=== PATIENT | female | born 1955 | race African-American/Black ===

== ENCOUNTER 2019-10-03 11:26 | Outpatient (CLI) | payer MEDICARE, MEDICAID, SELFPAY ==
--- NOTE | ~2019-10-03 | XR_ITS ---
XR shoulder LT min 2V DATE: 10/03/2019 11:42 INDICATION: Left lateral shoulder pain for 2 weeks. No known injury. TECHNIQUE: 4 views COMPARISON: None FINDINGS: No fracture or dislocation, periosteal reaction or bone destruction or abnormal soft tissue calcification. Normal alignment at the acromioclavicular and glenohumeral joints. IMPRESSION: No significant abnormality Reviewed, dictated and finalized at location B. IMPRESSION: No significant abnormality
== END 2019-10-03 11:27 | disposition home or self-care (01) ==
LOC: CHSIMG 11:29
PROVIDERS: PCP Nurse Practitioner Family; Visit Provider Nurse Practitioner Family
DX: M25.512 Pain in left shoulder (principal)
CPT/HCPCS: 73030

== ENCOUNTER 2019-10-05 09:48 | Outpatient (RCR) | payer MEDICARE, MEDICAID, SELFPAY ==
--- NOTE | 2019-10-05 11:36 | PTOPEVAL ---
Thank you for referring this patient to [facility]. Please review, sign, date and return this plan of care [facility]. I agree with and certify that the following plan of care is medically necessary. Referring Physician Date Admitting Provider: Attending Provider: Lay Mendoza NP Referring Provider: *PT Outpatient Evaluation Start: 10/05/19 10:02 Freq: Status: Active Protocol: Document 10/05/19 10:05 [facility] (Rec: 10/05/19 10:34 [facility] [id number]) Therapy Assessment Status Assessment Status Assessment Status Evaluation Outpatient Past Medical History Past Medical History Reason Unable to Obtain see patient intake form Evaluation Information Problem Diagnosis L shoulder pain Onset 09/19/19 Additional Evaluation Detail quick dash = Subjective Information patient reports she has been Query Text:As Reported By Patient/ having pain in the L shoulder Family fora bout 2-3 weeks. she reports the pain is on the outside of her shoulder, and is very tender. she reports she has been taking new pain meds that do not help. she reports the pain does not go down past the elbow. she reports she did not have an injury. she reports she has a history of surgery to the neck (removal of fatty cyst). she reports this was years ago. she reports she has increased pain with movement of the L hand/arm. she reports decreased pain with laying on the L shoudler/side. she reports she does control symptoms/pain with ice. Prior Level of Function Comments Additional Prior Level of Function prior to a few weeks ago, no Comments issues with the L shoulder. she reports the pain began randomly. Pain Assessment Timing of Pain Assessment Timing of Pain Assessment Assessment Pain Scale Pain Scale Used Numeric (1 - 10) Self Report Pain Assessment Left Shoulder(s) Reported Pain Level 6 Pain Description Sharp Pain Frequency Acute,Continuous Current Pain Intensity 6 Lowest Pain Intensity 1 Greatest Pain Intensity 8 Pain Aggravating Factors Changing Position,Exercise/
== END 2019-10-14 17:00 | disposition home or self-care (01) ==
LOC: CHSPT 09:48
PROVIDERS: PCP Nurse Practitioner Family; Visit Provider Nurse Practitioner Family
DX: M25.512 Pain in left shoulder (principal)
CPT/HCPCS: 97014; 97110; 97161; G0283

== ENCOUNTER 2019-12-26 10:29 | Outpatient (CLI) | payer MEDICARE, SELFPAY ==
[2019-12-26 10:55] LABS: Creatinine Urine 270.85 mg/dL (40-278)
[2019-12-26 10:57] LABS: Microalbumin Urine Random 51.6 mg/L
[2019-12-26 10:59] LABS: Hemoglobin A1C 6.8 % (<5.7)
[2019-12-26 12:06] LABS: Alanine Aminotransferase 27 U/L (14-59); Alkaline Phosphatase 53 U/L (46-116); Anion Gap 13.1 mmol/L (7-16); Aspartate Amino Transferase 16 U/L (15-37); Bilirubin,Total 0.9 mg/dL (0.00-1.00); Blood Urea Nitrogen 19 mg/dL (7-18); Calcium 9.1 mg/dL (8.5-10.1); Carbon Dioxide 27 mmol/L (21-32); Chloride 105 mmol/L (98-108); Cholesterol 106 mg/dL (0-200); Estimated Glomerular Filt Rate 50; Glucose 125 mg/dL (70-99); HDL Direct 55 mg/dL (40-60); LDL Cholesterol Calculated 33 mg/dL (<130); Osmolality Calculated 295 mOsm/kg (285-295); Potassium 4.1 mmol/L (3.5-5.1); Sodium 141 mmol/L (136-145); Total Protein 6.9 g/dL (6.4-8.2); Triglycerides 92 mg/dL (0-150)
== END 2019-12-26 10:30 | disposition home or self-care (01) ==
PROVIDERS: PCP Family Medicine; Visit Provider Family Medicine
DX: E11.9 Type 2 diabetes mellitus without complications (principal)
CPT/HCPCS: 36415; 80053; 80061; 82043; 83036

== ENCOUNTER 2020-04-09 08:29 | Outpatient (CLI) | payer MEDICARE, SELFPAY ==
[2020-04-09 08:53] LABS: Hemoglobin A1C 6.3 % (<5.7)
== END 2020-04-09 08:30 | disposition home or self-care (01) ==
LOC: CHSLAB 08:32
PROVIDERS: PCP Family Medicine; Visit Provider Family Medicine
DX: E11.9 Type 2 diabetes mellitus without complications (principal)
CPT/HCPCS: 36415; 83036

== ENCOUNTER 2020-07-18 09:30 | Outpatient (CLI) | payer MEDICARE, SELFPAY ==
[2020-07-18 09:54] LABS: INR 1.1; Prothrombin Time 11.8 Seconds (9.50-12.10)
== END 2020-07-18 09:31 | disposition home or self-care (01) ==
LOC: CHSLAB 09:33
PROVIDERS: PCP Family Medicine; Visit Provider Family Medicine
DX: I48.91 Unspecified atrial fibrillation (principal)
CPT/HCPCS: 36415; 85610

== ENCOUNTER 2020-08-29 08:56 | Outpatient (CLI) | payer MEDICARE, SELFPAY ==
[2020-08-29 09:13] LABS: Hematocrit 42.4 % (35.0-42.0); Hemoglobin 14.5 g/dL (11.7-13.8); Mean Corpuscular HGB Conc 34.2 g/dL (32.0-36.0); Mean Corpuscular Hemoglobin 30.4 pg (27.0-31.0); Mean Corpuscular Volume 88.9 fL (78.0-102.0); Platelet Count Result 243 K/mm3 (150-420); Red Blood Count 4.77 M/mm3 (4.20-5.40); Red Cell Distribution Width 13.4 % (11.6-14.4); White Blood Count 4.9 K/mm3 (4.8-10.8)
[2020-08-29 09:26] LABS: Hemoglobin A1C 6.8 % (<5.7); INR 2.7; Prothrombin Time 27.7 Seconds (9.50-12.10)
[2020-08-29 10:15] LABS: Alanine Aminotransferase 32 U/L (14-59); Albumin Level 3.9 g/dL (3.4-5.0); Alkaline Phosphatase 55 U/L (46-116); Anion Gap 9 mmol/L (8-16); Aspartate Amino Transferase 14 U/L (15-37); Bilirubin,Total 0.8 mg/dL (0.00-1.00); Blood Urea Nitrogen 20 mg/dL (7-18); Calcium 8.9 mg/dL (8.5-10.1); Carbon Dioxide 28 mmol/L (21-32); Chloride 105 mmol/L (98-108); Cholesterol 129 mg/dL (0-200); Estimated Glomerular Filt Rate 54; Glucose 147 mg/dL (70-99); HDL Direct 53 mg/dL (40-60); LDL Cholesterol Calculated 49 mg/dL (<130); Osmolality Calculated 299 mOsm/kg (285-295); Potassium 4.1 mmol/L (3.5-5.1); Sodium 142 mmol/L (136-145); Total Protein 6.8 g/dL (6.4-8.2); Triglycerides 133 mg/dL (0-150)
== END 2020-08-29 08:57 | disposition home or self-care (01) ==
LOC: CHSLAB 09:04
PROVIDERS: PCP Family Medicine; Visit Provider Family Medicine
DX: E78.5 Hyperlipidemia, unspecified (principal); I10 Essential (primary) hypertension; E11.9 Type 2 diabetes mellitus without complications; Z79.01 Long term (current) use of anticoagulants
CPT/HCPCS: 36415; 80053; 80061; 83036; 85027; 85610

== ENCOUNTER 2020-10-24 13:26 | Outpatient (RCR) | payer MEDICARE, MEDICAID, SELFPAY ==
[2020-07-30 10:08] LABS: INR 1.4; Prothrombin Time 15.1 Seconds (9.50-12.10)
[2020-08-08 09:31] LABS: INR 2.9; Prothrombin Time 29.8 Seconds (9.50-12.10)
[2020-08-15 09:15] LABS: INR 2.8; Prothrombin Time 28.5 Seconds (9.50-12.10)
[2020-08-22 11:08] LABS: INR 2.9; Prothrombin Time 29.3 Seconds (9.50-12.10)
[2020-09-05 09:30] LABS: INR 3.3; Prothrombin Time 33.2 Seconds (9.50-12.10)
[2020-09-12 09:50] LABS: INR 3.3; Prothrombin Time 32.9 Seconds (9.50-12.10)
[2020-09-19 10:20] LABS: INR 1.9; Prothrombin Time 19.3 Seconds (9.50-12.10)
[2020-09-26 09:59] LABS: INR 1.8; Prothrombin Time 18.8 Seconds (9.50-12.10)
[2020-10-03 10:02] LABS: Prothrombin Time 20.6 Seconds (9.50-12.10)
[2020-10-10 09:55] LABS: INR 1.8; Prothrombin Time 18.6 Seconds (9.50-12.10)
[2020-10-17 09:57] LABS: INR 2.8; Prothrombin Time 28.4 Seconds (9.50-12.10)
--- NOTE | ~2020-10-24 | XR_ITS ---
EXAMINATION: XR knee RT 2V DATE: 10/24/2020 15:16 INDICATION: Right knee pain. TECHNIQUE: 2 views of right knee were obtained. COMPARISON: None. FINDINGS: Bone alignment is normal. No fracture. There is moderate osteoarthritis of medial and mcknight lofemoral compartments and mild osteoarthritis of lateral compartment. There is a small knee joint ef fusion. IMPRESSION: 1. Moderate right knee osteoarthritis. Reviewed, dictated and finalized at location A.
--- NOTE | ~2020-10-24 | XR_ITS ---
EXAMINATION: XR hip RT min 2V DATE: 10/24/2020 15:16 INDICATION: Right hip pain. TECHNIQUE: 2 views of right hip were obtained. COMPARISON: None. FINDINGS: Bone alignment is normal. No fracture. There is mild right hip osteoarthritis. IMPRESSION: 1. Mild right hip osteoarthritis. Reviewed, dictated and finalized at location A.
[2020-10-24 14:09] LABS: INR 2.8; Prothrombin Time 28.8 Seconds (9.50-12.10)
== END 2020-10-28 23:59 | disposition home or self-care (01) ==
LOC: CHSLAB 13:26
PROVIDERS: PCP Family Medicine; Visit Provider Family Medicine
DX: Z79.01 Long term (current) use of anticoagulants (principal)
CPT/HCPCS: 36415; 73502; 73560; 85610

== ENCOUNTER 2020-11-17 09:37 | Outpatient (CLI) | payer MEDICARE, SELFPAY | END 2020-11-17 09:38 | disposition home or self-care (01) | LOC: CHSCOVIDVC 09:37 | PROVIDERS: PCP Family Medicine | DX: Z23 Encounter for immunization (principal) | CPT/HCPCS: 0011A; 91301 ==

== ENCOUNTER 2020-12-15 09:39 | Outpatient (CLI) | payer MEDICARE, SELFPAY | END 2020-12-15 09:40 | disposition home or self-care (01) | LOC: CHSCOVIDVC 09:39 | PROVIDERS: PCP Family Medicine | DX: Z23 Encounter for immunization (principal) | CPT/HCPCS: 0012A; 91301 ==

== ENCOUNTER 2021-01-16 16:23 | Outpatient (CLI) | payer MEDICARE, SELFPAY ==
[2021-01-16 17:41] LABS: Anion Gap 13 mmol/L (8-16); Blood Urea Nitrogen 20 mg/dL (7-18); Calcium 9.5 mg/dL (8.5-10.1); Carbon Dioxide 25 mmol/L (21-32); Chloride 104 mmol/L (98-108); Estimated Glomerular Filt Rate 53; Glucose 110 mg/dL (70-99); NT Pro B Type Natriuretic Pept 525 pg/mL (0-125); Osmolality Calculated 297 mOsm/kg (285-295); Sodium 142 mmol/L (136-145)
== END 2021-01-16 16:24 | disposition home or self-care (01) ==
LOC: CHSLAB 16:27
PROVIDERS: PCP Family Medicine; Visit Provider Family Medicine
DX: I10 Essential (primary) hypertension (principal); I50.9 Heart failure, unspecified
CPT/HCPCS: 36415; 80048; 83880

== ENCOUNTER 2021-01-23 12:06 | Outpatient (RCR) | payer MEDICARE, SELFPAY ==
[2020-10-31 09:47] LABS: Prothrombin Time 30.7 Seconds (9.50-12.10)
[2020-11-07 10:02] LABS: Prothrombin Time 20.9 Seconds (9.50-12.10)
[2020-11-14 09:52] LABS: INR 1.7; Prothrombin Time 17.6 Seconds (9.50-12.10)
[2020-11-26 10:55] LABS: INR 2.3; Prothrombin Time 23.9 Seconds (9.50-12.10)
[2020-12-03 10:26] LABS: INR 2.5; Prothrombin Time 25.7 Seconds (9.50-12.10)
[2020-12-10 09:55] LABS: INR 2.7; Prothrombin Time 27.2 Seconds (9.50-12.10)
[2020-12-18 11:13] LABS: INR 2.8; Prothrombin Time 28.6 Seconds (9.50-12.10)
[2021-01-23 12:27] LABS: INR 2.7; Prothrombin Time 27.3 Seconds (9.50-12.10)
== END 2021-01-29 23:59 | disposition home or self-care (01) ==
LOC: CHSLAB 12:06
PROVIDERS: PCP Family Medicine; Visit Provider Family Medicine
DX: Z79.01 Long term (current) use of anticoagulants (principal)
CPT/HCPCS: 36415; 85610

== ENCOUNTER 2021-03-12 14:37 | Outpatient (CLI) | payer MEDICARE, SELFPAY ==
[2021-03-12 15:03] LABS: Hematocrit 40.3 % (35.0-42.0); Hemoglobin 13.9 g/dL (11.7-13.8); Mean Corpuscular HGB Conc 34.5 g/dL (32.0-36.0); Mean Corpuscular Hemoglobin 30.9 pg (27.0-31.0); Mean Corpuscular Volume 89.6 fL (78.0-102.0); Platelet Count Result 254 K/mm3 (150-420); Red Cell Distribution Width 13.3 % (11.6-14.4); White Blood Count 5.9 K/mm3 (4.8-10.8)
[2021-03-12 16:37] LABS: Alanine Aminotransferase 48 U/L (14-59); Alkaline Phosphatase 67 U/L (46-116); Anion Gap 10 mmol/L (8-16); Aspartate Amino Transferase 24 U/L (15-37); Bilirubin,Total 0.6 mg/dL (0.00-1.00); Blood Urea Nitrogen 22 mg/dL (7-18); Carbon Dioxide 28 mmol/L (21-32); Chloride 105 mmol/L (98-108); Estimated Glomerular Filt Rate 53; Folic Acid 15.6 ng/mL (8.6->20); Glucose 166 mg/dL (70-99); Osmolality Calculated 303 mOsm/kg (285-295); Potassium 4.1 mmol/L (3.5-5.1); Sodium 143 mmol/L (136-145); Total Protein 7.2 g/dL (6.4-8.2); Vitamin B12 574 pg/mL (193-986)
[2021-03-12 16:38] LABS: Thyroid Stimulating Hormone Reflex 1.31 u/IU/mL (0.36-3.74)
== END 2021-03-12 14:38 | disposition home or self-care (01) ==
LOC: CHSLAB 14:40
PROVIDERS: PCP Family Medicine; Visit Provider Family Medicine
DX: R53.83 Other fatigue (principal); E11.9 Type 2 diabetes mellitus without complications; E53.8 Deficiency of other specified B group vitamins
CPT/HCPCS: 36415; 80053; 82607; 82746; 84443; 85027

== ENCOUNTER 2021-03-19 08:57 | Outpatient (CLI) | payer MEDICARE, MEDICAID, SELFPAY ==
--- NOTE | 2021-03-21 13:57 | P.PCNPFT_ITS ---
PFT Procedure Performed PFT Procedure Performed Spirometry with Pre/Post Bronchodilator Plethysmography (Lung Vol) Diffusing Cap (DLCO) Flow Vol Loop PFT Interpretation DOS: 03/19/2021 REQUESTING: Dr Saul Leung REASON FOR TESTING: Shortness of breath, fatigue PULMONARY FUNCTION TESTS Results are reproducible and reliable Spirometry: the there is a weight years post bi look at this but I can not do as I just take a picture of it and FEV1 is 103% predicted, 2.2 L. This is normal. FVC 96%. The FEV1/ FVC ratio is normal 86%. There is a 14% increase in the FVC with bronchodilator and this is greater than 200 mL. The FEF 25- 75% is supranormal 130% and this decreases by 22% with bronchodilator. Lung volumes: Total lung capacity normal 117%. Residual volume 146% moderate air trapping. Airway resistance normal 125%. Diffusion: DLCO 71%. When corrected for alveolar volume it is 132% Flow volume loop: Normal. IMPRESSION: This full pulmonary function test with bronchodilator shows normal spirometry, normal total lung capacity with moderate air trapping which is consistent with an obstructive process. Mild decrease in diffusion which is a nonspecific pattern. The increase in flows with bronchodilator administration suggests that use of bronchodilator may improve symptoms. Bettina Pollock MD
== END 2021-03-19 08:58 | disposition home or self-care (01) ==
LOC: CHSCARD 08:57
PROVIDERS: PCP Family Medicine; Visit Provider Family Medicine
DX: R06.02 Shortness of breath (principal); R53.83 Other fatigue
CPT/HCPCS: 94060; 94726; 94729

== ENCOUNTER 2021-05-17 14:41 | Outpatient (CLI) | payer MEDICARE, MEDICAID, SELFPAY ==
--- NOTE | 2021-05-17 14:46 | ECG_ITS ---
Measurements Intervals [place] Rate: 145 P: SC: 0 QRS: -6 QRSD: 96 T: 10 QT: 315 QTc: 490 Interpretive Statements ATRIAL FIBRILLATION WITH RAPID VENTRICULAR RESPONSE DELAYED PRECORDIAL R/S TRANSITION BORDERLINE ST-T WAVE ABNORMALITY- INF/HIGH LAT LEADS ABNORMAL ECG Electronically Signed On 05-17-2021 15:50:50 CDT by Shaggy Jimenez D.O.
[2021-05-17 15:30] LABS: Hematocrit 39.9 % (35.0-42.0); Hemoglobin 13.6 g/dL (11.7-13.8); Mean Corpuscular HGB Conc 34.1 g/dL (32.0-36.0); Mean Corpuscular Hemoglobin 30.5 pg (27.0-31.0); Mean Corpuscular Volume 89.5 fL (78.0-102.0); Mean Platelet Volume 11.5 fl (9.2-11.8); Platelet Count Result 252 K/mm3 (150-420); Red Blood Count 4.46 M/mm3 (4.20-5.40); Red Cell Distribution Width 13.8 % (11.6-14.4); White Blood Count 7.1 K/mm3 (4.8-10.8)
[2021-05-17 15:57] LABS: Alanine Aminotransferase 35 U/L (14-59); Albumin Level 3.9 g/dL (3.4-5.0); Alkaline Phosphatase 64 U/L (46-116); Anion Gap 13 mmol/L (8-16); Aspartate Amino Transferase 16 U/L (15-37); Bilirubin,Total 0.8 mg/dL (0.00-1.00); Blood Urea Nitrogen 19 mg/dL (7-18); Calcium 8.6 mg/dL (8.5-10.1); Carbon Dioxide 24 mmol/L (21-32); Chloride 104 mmol/L (98-108); Estimated Glomerular Filt Rate 46; Glucose 208 mg/dL (70-99); NT Pro B Type Natriuretic Pept 1781 pg/mL (0-125); Osmolality Calculated 300 mOsm/kg (285-295); Potassium 3.9 mmol/L (3.5-5.1); Sodium 141 mmol/L (136-145); Total Protein 7.7 g/dL (6.4-8.2); Troponin I 47.1 ng/L (0.00-60.4)
[2021-05-17 16:17] LABS: SARS-CoV-2 RNA PCR Negative (Negative)
== END 2021-05-17 14:42 | disposition home or self-care (01) ==
PROVIDERS: PCP Family Medicine; Visit Provider Family Medicine
DX: R06.02 Shortness of breath (principal); E11.9 Type 2 diabetes mellitus without complications; Z20.822 Contact with and (suspected) exposure to COVID-19
CPT/HCPCS: 36415; 80053; 83880; 84443; 84484; 85027; 93005; C9803; U0003; U0005

== ENCOUNTER 2021-05-17 15:18 | Emergency (ER) | payer MEDICARE, MEDICAID, SELFPAY ==
[2021-05-17] VITALS (10 sets, daily range): BP systolic 106–159; BP diastolic 72–106; PULSE 75–156; RESP 20–22; TEMP 36.4–36.9; O2SAT 95–97
--- NOTE | ~2021-05-17 | XR_ITS ---
EXAMINATION: XR chest 1V portable INDICATION: Generalized chest pain with shortness of breath TECHNIQUE: Portable AP chest at 1543 hours COMPARISON: None available FINDINGS: The lungs are free of acute opacities. There is no pleural effusion or pneumothorax. The ca rdiomediastinal silhouette is normal. IMPRESSION: 1. No acute cardiopulmonary abnormality. Reviewed, dictated and finalized at location A.
--- NOTE | ~2021-05-17 | CT_ITS ---
EXAMINATION: CTA chest PE protocol DATE: 05/17/2021 16:41 CDT INDICATION: Shortness of breath TECHNIQUE: Computed tomographic angiography (CTA) of the chest was performed with 100 mL Omnipaque-35 0 intravenous contrast. The dose-length product was 991.32 mGy-cm. Maximum intensity projection 3D-re constructions of the aorta and other arteries were constructed by the technologist on a separate work station. Automated exposure control and iterative reconstruction technique were employed. COMPARISON: None. FINDINGS: Cardiomegaly. Study is technically adequate without evidence for pulmonary embolism. No sig nificant pleural or pericardial effusion. The upper abdomen is unremarkable. No thoracic lymphadenopa thy. There is lower lobe atelectasis. There are patchy groundglass opacities in the lower lobes, susp icious for pneumonia No pneumothorax. IMPRESSION: 1. No evidence for pulmonary embolism. 2: Patchy primarily lower lobe groundglass opacities, suspicious for pneumonia. Bibasilar dependent atelectasis. Reviewed, dictated and finalized at location A. IMPRESSION: 1. No evidence for pulmonary embolism. 2: Patchy primarily lower lobe groundglass opacities, suspicious for pneumonia . Bibasilar dependent atelectasis.
--- NOTE | ~2021-05-17 | US_ITS ---
EXAMINATION: US venous doppler [facility] EXAM DATE: 05/17/2021 16:10 INDICATION: Left leg swelling. TECHNIQUE: Multiple grayscale, color flow and Doppler images of the left lower extremity deep venous system were obtained and reviewed. There is no prior study for comparison. FINDINGS: The left common femoral, femoral and profunda veins demonstrate normal color flow, respirat ory variation, augmentation and compressibility. Compressibility, color flow confirmed within the le ft popliteal, posterior tibial, peroneal, and greater saphenous veins. IMPRESSION: No left lower extremity deep venous thrombosis. Reviewed, dictated and finalized at location A.
--- NOTE | 2021-05-17 15:29 | ECG_ITS ---
Measurements Intervals [place] Rate: 152 P: NM: 0 QRS: 43 QRSD: 93 T: 49 QT: 306 QTc: 487 Interpretive Statements ATRIAL FIBRILLATION WITH RAPID VENTRICULAR RESPONSE VENTRICULAR PREMATURE COMPLEX DELAYED PRECORDIAL R/S TRANSITION BORDERLINE ST-T WAVE ABNORMALITY- INFERIOR LEADS BASELINE ARTIFACT- I, II, III, AVR, AVL, AVF ABNORMAL ECG Electronically Signed On 05-17-2021 15:52:10 CDT by Shaggy Jimenez D.O.
[2021-05-17] MEDS: dilTIAZem HCl INJ 25 MG/5 ML VIAL 20 MG IV PUSH (15:55)
[2021-05-17] MEDS: SODIUM CHLORIDE 0.9% IV 500 ML 999 ML IV CONT (16:00)
[2021-05-17 16:01] LABS: Ethanol < 3 mg/dL (0-6)
[2021-05-17 16:07] LABS: Lactic Acid Reflex 1.9 mmol/L (0.4-2.0)
[2021-05-17 16:10] LABS: D Dimer 0.19 mg/L (0.19-0.50)
[2021-05-17 16:25] LABS: Base Excess ABG -1.7 mmol/L (0-2); HCO3 ABG 21.2 mmol/L (23-29); Oxygen Content ABG 19.7 %vol (16.0-22.0); Oxygen Saturation ABG 96.2 % (95-97); Oxyhemoglobin 95.7 % (94-100); PO2 ABG 81.6 mmHg (75-85); Total Hemoglobin 14.6 g/dL (12.0-18.0); pH ABG 7.45 (7.35-7.45)
[2021-05-17 16:27] LABS: Device ROOM AIR; Modified Allen's Test Pass; Site Drawn LEFT RADIAL
[2021-05-17 17:10] LABS: Appearance Urine Clear (Clear); Bilirubin Urine Negative (Negative); Blood Urine Negative (Negative); Color Urine Light Yellow (Yellow); Glucose Urine UA Negative (Negative); Ketones Urine Negative (Negative); Nitrate Urine Negative (Negative); Protein Urine Negative (Negative); Specific Grav Ur 1.025 (1.010-1.020); Urobilinogen Urine 0.2 mg/dL (0.2-1.0); pH Urine 5.5 (5.0-8.0)
[2021-05-17 17:18] LABS: Amphetamine Screen Urine Negative (Negative); Barbiturate Screen Urine Negative (Negative); Benzodiazepines Screen Urine Negative (Negative); Cannabinoid Screen Urine Negative (Negative); Cocaine Screen Urine Negative (Negative); Methadone Screen Urine Negative (Negative); Opiate Screen Urine Negative (Negative); Phencyclidine Screen Urine Negative (Negative)
[2021-05-17 17:28] LABS: Add Urine Microscopic? NO; Leukocyte Esterase Ur Negative (Negative)
[2021-05-17] MEDS: AZITHROMYCIN 250 MG TABLET 500 MG PO (18:18)
[2021-05-17] MEDS: METOPROLOL TARTRATE 25 MG TABLET (18:20)
--- NOTE | 2021-05-17 18:34 | ED.SOB ---
HPI - SOB/Dyspnea General Chief Complaint: Shortness of Breath/Dyspnea Stated Complaint: high heart rate Time Seen by Provider: 05/17/21 15:20 Source: patient, RN notes reviewed and other (pt PMD, Dr Leung.) Mode of arrival: wheelchair Limitations: no limitations History of Present Illness HPI Narrative: pt had rapid irregular pulse. MD elicited complaint: shortness of breath Pertinent past history: COPD Onset (ago): day(s) (2) Timing: constant Severity: moderate Exacerbating factors: nothing Relieving factors: nothing Known history of: COPD Associated symptoms: wheezing and palpitations Treatment prior to arrival: oxygen Related Data Home oxygen amount: none Home Medications Medication Instructions Recorded Confirmed metoprolol tartrate 25 mg tablet 25 mg PO BID tablet 03/12/21 03/12/21 Allergies Allergy/AdvReac Type Severity Reaction Status Date / Time No Known Allergies Allergy Verified 05/17/21 12:21 Review of Systems Review of Systems: All systems reviewed & are unremarkable except as noted in HPI and below PMFSH Past Medical History Medical History Afib DM2 (diabetes mellitus, type 2) Hyperlipidemia Hypertension Overweight Surgical History Surgical History History of hip replacement, total Left Hip History of surgical removal of lesion Social History Social History Smoking status: Never smoker Alcohol intake: never Substance use: never Substance use type: does not use Gender identity (if verbalized by the patient): Female Exam Const: General: no acute distress Nutritional Appearance: obese Orientation/consciousness: patient oriented x3 HENMT: Head: normal to inspection Ears: TM's normal bilaterally General nose exam: Normal external nose present and Normal nares present Mouth: Yes lip normal and Yes moist mucous membranes Teeth and gingiva: dentition normal Eyes: Conjunctivae: conjunctivae normal Pupils: Equal, round and reactive pupils present EOM: EOMs intact bilaterally Neck: Neck: normal visual inspection and no lymphadenopathy Chest: Chest palpation & inspection: normal inspection of the chest Resp: Effort & Inspection: normal respiratory effort Auscultation: rhonchi and wheezes Cardio: Rate: tachycardic Rhythm: abnormal rhythm GI: GI Palp: Yes Soft to palpation and No Tenderness to palpation present (GI) Percussion: Yes normal to percussion Auscultation: normal bowel sounds : General: Yes no CVA tenderness Back/Spine/Pelvis: Back: no CVA tenderness Skin: General skin exam: normal color Rashes: no rashes Neuro: General: patient oriented x3, moves all extremities, no meningeal signs, no focal motor deficits and CN's II-XI intact bilaterally Extrem: Other: left calf was swollen and tender Psych: Mental Status: mental status grossly normal Affect: normal affect Attitude: cooperative Thought content: Yes Normal thought content present Course Course Emergency Course: Pt rapd pulse was appropriately treated. no acute chest pain or SOB. no DVT detected. Pt wanted to go home and refused inpatient care. For home with appropriate meds. Reevaluation(s) Reevaluation #1: Pt was comfortable in the ED. VSS. Date: 05/17/21 Time: 16:15 Vital Signs Vital signs: Vital Signs Temperature 36.4 C 05/17/21 15:24 Pulse Rate 156 H 05/17/21 15:24 Respiratory Rate 20 05/17/21 15:24 Blood Pressure 144/79 H 05/17/21 15:24 Pulse Oximetry 96 05/17/21 15:24 Temperature 36.9 C 05/17/21 20:07 Pulse Rate 82 05/17/21 20:07 Respiratory Rate 20 05/17/21 20:07 Blood Pressure 155/92 H 05/17/21 20:07 Pulse Oximetry 96 05/17/21 20:07 MDM - SOB/Dyspnea Differential Diagnosis Differential diagnosis: Likely acute exacerbation of chronic obstructive airways disea
== END 2021-05-17 20:09 | disposition home or self-care (01) ==
PROVIDERS: Emergency Provider Emergency Medicine; PCP Family Medicine
DX: J18.9 Pneumonia, unspecified organism (principal); I48.20 Chronic atrial fibrillation, unspecified; E11.9 Type 2 diabetes mellitus without complications; E78.5 Hyperlipidemia, unspecified; I10 Essential (primary) hypertension; Z79.899 Other long term (current) drug therapy
CPT/HCPCS: 36415; 36600; 71045; 71275; 80053; 80307; 81003; 82805; 83605; 83880; 84443; 84484; 85027; 85380; 93005; 93971; 96365; 96366; 96367; 99283; 99284; A9270; C9803; J0696; J7040; Q9967; U0003; U0005

== ENCOUNTER 2021-05-22 12:18 | Outpatient (RCR) | payer MEDICARE, OTHER, SELFPAY ==
[2021-02-22 09:56] LABS: INR 2.4; Prothrombin Time 24.6 Seconds (9.50-12.10)
[2021-03-27 10:45] LABS: INR 2.3; Prothrombin Time 23.4 Seconds (9.50-12.10)
[2021-04-22 08:38] LABS: INR 2.5; Prothrombin Time 25.4 Seconds (9.50-12.10)
[2021-05-22 12:47] LABS: INR 2.6; Prothrombin Time 26.1 Seconds (9.50-12.10)
== END 2021-05-23 23:59 | disposition home or self-care (01) ==
LOC: CHSLAB 12:18
PROVIDERS: PCP Family Medicine; Visit Provider Family Medicine
DX: Z79.01 Long term (current) use of anticoagulants (principal)
CPT/HCPCS: 36415; 85610

== ENCOUNTER 2021-06-17 13:41 | Outpatient (CLI) | payer OTHER, SELFPAY ==
[2021-06-17 14:13] LABS: INR 3.4; Prothrombin Time 34.6 Seconds (9.50-12.10)
[2021-06-17 14:25] LABS: CRP < 0.5 mg/dL (0.0-0.9)
[2021-06-17 15:04] LABS: Erythrocyte Sedimentation Rate 17 mm/hr (0-20)
[2021-06-19 08:37] LABS: ANA Cascade Screen Negative (Negative)
== END 2021-06-17 13:42 | disposition home or self-care (01) ==
PROVIDERS: PCP Family Medicine; Visit Provider Family Medicine
DX: M79.10 Myalgia, unspecified site (principal); I48.91 Unspecified atrial fibrillation
CPT/HCPCS: 36415; 82553; 85610; 85652; 86038; 86140

== ENCOUNTER 2021-06-19 11:36 | Outpatient (CLI) | payer OTHER, SELFPAY ==
--- NOTE | ~2021-06-19 | US_ITS ---
EXAMINATION: US venous doppler UE RT DATE: 06/19/2021 12:12 INDICATION: Erythema and arm swelling TECHNIQUE: Medina scale images with and without compression and Doppler images of the right upper extre mity veins were obtained. COMPARISON: None. FINDINGS: The right internal jugular vein, subclavian vein, axillary vein, brachial veins, basilic vein, cephal ic vein, radial vein, and ulnar vein are patent. IMPRESSION: 1. Patent right upper extremity veins. No evidence of deep venous thrombosis. Reviewed, dictated and finalized at location B. 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
== END 2021-06-19 11:37 | disposition home or self-care (01) ==
LOC: CHSIMG 11:38
PROVIDERS: PCP Family Medicine; Visit Provider Family Medicine
DX: M79.89 Other specified soft tissue disorders (principal)
CPT/HCPCS: 93971

== ENCOUNTER 2021-06-25 11:03 | Outpatient (CLI) | payer OTHER, SELFPAY ==
--- NOTE | ~2021-06-25 | XR_ITS ---
EXAMINATION: XR shoulder LT min 2V INDICATION: Left shoulder pain TECHNIQUE: Four views of the left shoulder are obtained on five radiographs. COMPARISON: 10/03/2019 FINDINGS: Normal alignment. No fracture. There is mild osteoarthritis of the glenohumeral joint and a cromioclavicular joint. Soft tissues are unremarkable. IMPRESSION: 1. Osteoarthritis without acute osseous abnormality. Reviewed, dictated and finalized at location A. 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
== END 2021-06-25 11:04 | disposition home or self-care (01) ==
LOC: CHSIMG 11:04
PROVIDERS: PCP Family Medicine; Visit Provider Nurse Practitioner Family
DX: M25.512 Pain in left shoulder (principal)
CPT/HCPCS: 73030

== ENCOUNTER 2021-07-22 11:05 | Outpatient (RCR) | payer OTHER, SELFPAY ==
[2021-06-25 10:23] LABS: INR 2.1; Prothrombin Time 21.8 Seconds (9.50-12.10)
[2021-07-22 11:35] LABS: INR 2.3; Prothrombin Time 23.4 Seconds (9.50-12.10)
== END 2021-09-23 23:59 | disposition home or self-care (01) ==
LOC: CHSLAB 11:05
PROVIDERS: PCP Family Medicine; Visit Provider Family Medicine
DX: Z79.01 Long term (current) use of anticoagulants (principal)
CPT/HCPCS: 36415; 85610

== ENCOUNTER 2021-08-01 11:10 | Outpatient (CLI) | payer OTHER, SELFPAY ==
[2021-08-01 11:36] LABS: Hemoglobin A1C 8.4 % (<5.7)
[2021-08-01 12:12] LABS: Cholesterol 155 mg/dL (0-200); HDL Direct 59 mg/dL (40-60); LDL Cholesterol Calculated 70 mg/dL (<130); Triglycerides 132 mg/dL (0-150)
== END 2021-08-01 11:11 | disposition home or self-care (01) ==
LOC: CHSLAB 11:12
PROVIDERS: PCP Nurse Practitioner Family; Visit Provider Nurse Practitioner Family
DX: E11.9 Type 2 diabetes mellitus without complications (principal); E78.5 Hyperlipidemia, unspecified
CPT/HCPCS: 36415; 80061; 83036

== ENCOUNTER 2021-08-14 11:00 | Outpatient (CLI) | payer OTHER, SELFPAY ==
[2021-08-14 11:28] LABS: INR 2.7; Prothrombin Time 27.3 Seconds (9.50-12.10)
[2021-08-14 12:07] LABS: Alanine Aminotransferase 42 U/L (14-59); Albumin Level 3.9 g/dL (3.4-5.0); Alkaline Phosphatase 58 U/L (46-116); Anion Gap 8 mmol/L (8-16); Aspartate Amino Transferase 26 U/L (15-37); Bilirubin,Total 0.7 mg/dL (0.00-1.00); Blood Urea Nitrogen 15 mg/dL (7-18); Carbon Dioxide 29 mmol/L (21-32); Chloride 101 mmol/L (98-108); Estimated Glomerular Filt Rate 51; Glucose 187 mg/dL (70-99); Magnesium 1.9 mg/dL (1.8-2.4); Osmolality Calculated 291 mOsm/kg (285-295); Potassium 3.9 mmol/L (3.5-5.1); Sodium 138 mmol/L (136-145); Total Protein 6.9 g/dL (6.4-8.2)
== END 2021-08-14 11:01 | disposition home or self-care (01) ==
PROVIDERS: PCP Nurse Practitioner Family; Visit Provider Nurse Practitioner Family
DX: R25.2 Cramp and spasm (principal); Z79.01 Long term (current) use of anticoagulants
CPT/HCPCS: 36415; 80053; 83735; 85610

== ENCOUNTER 2021-08-29 16:34 | Outpatient (NON) | payer OTHER, SELFPAY | END 2021-08-29 16:35 | disposition home or self-care (01) | LOC: CHSLAB 16:36 | PROVIDERS: Visit Provider Nurse Practitioner Family | DX: Z12.4 Encounter for screening for malignant neoplasm of cervix (principal); Z13.89 Encounter for screening for other disorder | CPT/HCPCS: 87491; 87591; 87624; 88175; G0145 ==

== ENCOUNTER 2021-09-09 07:35 | Outpatient (CLI) | payer OTHER, SELFPAY ==
--- NOTE | ~2021-09-09 | MM_ITS ---
EXAMINATION: MM screening hari BI w [place] HISTORY: Screening mammogram TECHNIQUE: Craniocaudal and mediolateral oblique 3-D tomosynthesis images were obtained and synthetic 2-D images were generated. CAD analysis was submitted and interpreted. COMPARISON: 03/04/2017, 02/27/2016 bilateral mammogram examinations BREAST PARENCHYMAL COMPOSITION: There are scattered areas of fibroglandular density. FINDINGS: Bilateral scattered benign calcifications. There is no evidence of suspicious mass, calcifi cation, or architectural distortion to suggest malignancy in either breast. There has been no suspici ous interval change. IMPRESSION: 1. No mammographic evidence of malignancy. 2. Recommend routine screening mammography in one year. BI-RADS Category 2: Benign finding(s). Reviewed, dictated and finalized at location A. 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
== END 2021-09-09 07:36 | disposition home or self-care (01) ==
LOC: CHSIMG 07:37
PROVIDERS: PCP Family Medicine; Visit Provider Family Medicine
DX: Z12.31 Encounter for screening mammogram for malignant neoplasm of breast (principal)
CPT/HCPCS: 77063; 77067

== ENCOUNTER 2021-10-02 18:27 | Emergency (ER) | payer OTHER, SELFPAY ==
[2021-10-02 18:45] VITALS: BP 156/94; PULSE 70; RESP 18; TEMP 36.8; O2SAT 96
--- NOTE | 2021-10-02 18:48 | ED.ABDPAIN ---
HPI - Abdominal Pain General Chief Complaint: Urogenital-Female Stated Complaint: POSSIBLE KIDNEY INFECTION-BACK PAIN Time Seen by Provider: 10/02/21 18:49 Source: patient History of Present Illness HPI narrative: 66-year-old female with a history of hypertension, diabetes mellitus dyslipidemia, gout, atrial fibrillation on anticoagulation, bilateral lower extremity edema presents to the ER with a 2 day history of right flank pain. No fever or chills. No dysuria / hematuria. No prior history of kidney stones. Had a history of urinary tract infection 1 year ago. MD elicited complaint: flank pain Pertinent past history: past UTI Onset (ago): day(s) ( Started 2 days ago.) Pain Consistency: constant Location: none Severity: moderate Quality: aching Radiation: none Exacerbating factors: movement Relieving factors: nothing Associated symptoms: denies other symptoms Related Data Home Medications Medication Instructions Recorded Confirmed amlodipine 10 mg PO DAILY 10/02/21 10/02/21 atorvastatin 40 mg PO DAILY 10/02/21 10/02/21 lisinopril-hydrochlorothiazide 20 - 25 tablet PO DAILY 10/02/21 10/02/21 Allergies Allergy/AdvReac Type Severity Reaction Status Date / Time No Known Allergies Allergy Verified 10/02/21 18:55 Review of Systems Review of Systems: All systems reviewed & are unremarkable except as noted in HPI and below Constitutional: Constitutional: Reports as per HPI and Reports no additional constitutional complaints Eyes: Eyes: Reports as per HPI and Reports no additional eye complaints ENT: Reports system reviewed and no additional complaints, except as documented Cardiovascular: Cardiovascular: Reports as per HPI and Reports no additional cardiovascular complaints Respiratory: Respiratory: Reports as per HPI and Reports no additional respiratory complaints Gastrointestinal: Gastrointestinal: Reports as per HPI and Reports no additional gastrointestinal complaints Genitourinary: Genitourinary: Reports no additional female genitourinary complaints and Reports flank pain Musculoskeletal: Musculoskeletal: Reports back pain Integumentary/Breasts: Skin/Breast: Reports system reviewed and no additional complaints, except as docu Neurologic: Reports system reviewed and no additional complaints, except as documented Psychiatric: Psychiatric: Reports no additional psychiatric complaints Endocrine: Endocrine: Reports no additional endocrine complaints Hematologic/Lymphatic: Hematologic/Lymphatic: Reports no additional hematologic/lymphatic complaints Allergic/Immunologic: Allergic/Immunologic: Reports no additional allergic/immunologic complaints [facility] Past Medical History Medical History Afib Arm swelling DM2 (diabetes mellitus, type 2) Easy fatigability Gout attack Hematuria History of cardioversion 2020 Hyperlipidemia Hypertension Myalgia Need for vaccination Overweight Shortness of breath Shoulder pain, left Surgical History Surgical History History of cholecystectomy History of hip replacement, total Left Hip History of surgical removal of lesion Family History Family History Sibling Lung cancer Sibling Diabetes mellitus Hypertension Sibling Acute myocardial infarction Mother Enoc disease Sibling Accidental Social History Social History Smoking status: Never smoker Alcohol intake: never Substance use: never Substance use type: does not use Additional living arrangements comments: Daughter is staying with her right now. 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
[2021-10-02 19:13] LABS: Basophils Absolute Auto 0.06 K/mm3 (0.00-0.10); Basophils Percent Auto 1.1 % (0.0-1.0); Eosinophils Absolute Auto 0.04 K/mm3 (0.02-0.50); Eosinophils Percent Auto 0.8 % (1.0-6.0); Hematocrit 42.5 % (35.0-42.0); Hemoglobin 14.7 g/dL (11.7-13.8); Immature Granulocyte Absolute 0.02 K/mm3 (0.00-0.00); Immature Granulocyte Percent A 0.4 % (0.0-0.0); Lymphocytes Absolute Auto 1.44 K/mm3 (1.10-4.50); Lymphocytes Percent Auto 27.6 % (18.0-42.0); Mean Corpuscular HGB Conc 34.6 g/dL (32.0-36.0); Mean Corpuscular Hemoglobin 31.3 pg (27.0-31.0); Mean Corpuscular Volume 90.4 fL (78.0-102.0); Mean Platelet Volume 10.6 fl (9.2-11.8); Monocytes Absolute Auto 0.47 K/mm3 (0.10-0.90); Neutrophils Absolute Auto 3.2 K/mm3 (1.7-7.2); Neutrophils Percent Auto 61.1 % (50.0-70.0); Platelet Count Result 259 K/mm3 (150-420); Red Cell Distribution Width 13.8 % (11.6-14.4); White Blood Count 5.2 K/mm3 (4.8-10.8)
[2021-10-02 19:16] LABS: Add Urine Microscopic? NO; Appearance Urine Clear (Clear); Bilirubin Urine Negative (Negative); Blood Urine Negative (Negative); Color Urine Yellow (Yellow); Glucose Urine UA Negative (Negative); Ketones Urine Negative (Negative); Leukocyte Esterase Ur Negative (Negative); Nitrate Urine Negative (Negative); Protein Urine Negative (Negative); Specific Grav Ur >= 1.030 (1.010-1.020); Urobilinogen Urine 0.2 mg/dL (0.2-1.0); pH Urine 5.5 (5.0-8.0)
[2021-10-02 19:32] LABS: Alanine Aminotransferase 23 U/L (14-59); Alkaline Phosphatase 57 U/L (46-116); Anion Gap 11 mmol/L (8-16); Aspartate Amino Transferase 16 U/L (15-37); Bilirubin,Total 0.7 mg/dL (0.00-1.00); Blood Urea Nitrogen 27 mg/dL (7-18); Calcium 8.8 mg/dL (8.5-10.1); Carbon Dioxide 26 mmol/L (21-32); Chloride 103 mmol/L (98-108); Estimated CRCL calculation 52 ml/min; Estimated Glomerular Filt Rate 44; Glucose 122 mg/dL (70-99); Lipase 135 U/L (73-393); Osmolality Calculated 296 mOsm/kg (285-295); Potassium 3.7 mmol/L (3.5-5.1); Sodium 140 mmol/L (136-145); Total Protein 7.4 g/dL (6.4-8.2); Troponin I 49.3 ng/L (0.00-60.4)
[2021-10-02 19:34] LABS: Uric Acid 8.1 mg/dL (2.6-6.0)
[2021-10-02] MEDS: HYDROcodone/acetaminophen (*CRX) 5-325 MG TABLET 1 TAB PO (20:06)
[2021-10-02 20:14] VITALS: BP 135/90; PULSE 68; RESP 16; TEMP 36.8; O2SAT 96
== END 2021-10-02 20:16 | disposition home or self-care (01) ==
PROVIDERS: Emergency Provider Internal Medicine Critical Care Medicine; PCP Family Medicine
DX: M54.50 Low back pain, unspecified (principal); M1A.9XX0 Chronic gout, unspecified, without tophus (tophi); N18.32 Chronic kidney disease, stage 3b; I48.91 Unspecified atrial fibrillation; E11.9 Type 2 diabetes mellitus without complications; E78.5 Hyperlipidemia, unspecified; I12.9 Hypertensive chronic kidney disease with stage 1 through stage 4 chronic kidney disease, or unspecified chronic kidney disease
CPT/HCPCS: 36415; 80053; 81003; 83605; 83690; 84484; 84550; 85025; 99284; A9270

== ENCOUNTER 2021-11-26 08:47 | Outpatient (RCR) | payer OTHER, SELFPAY ==
[2021-09-30 10:12] LABS: INR 2.9; Prothrombin Time 29.4 Seconds (9.50-12.10)
[2021-10-25 10:27] LABS: INR 3.2; Prothrombin Time 31.9 Seconds (9.50-12.10)
[2021-11-05 09:50] LABS: INR 3.4; Prothrombin Time 34.4 Seconds (9.50-12.10)
[2021-11-12 09:05] LABS: INR 2.1; Prothrombin Time 21.5 Seconds (9.50-12.10)
[2021-11-26 09:12] LABS: INR 1.9; Prothrombin Time 19.7 Seconds (9.50-12.10)
== END 2021-12-29 23:59 | disposition home or self-care (01) ==
LOC: CHSLAB 08:47
PROVIDERS: PCP Family Medicine
DX: Z79.01 Long term (current) use of anticoagulants (principal); I48.0 Paroxysmal atrial fibrillation
CPT/HCPCS: 36415; 85610

== ENCOUNTER 2021-12-11 11:38 | Outpatient (CLI) | payer OTHER, SELFPAY ==
[2021-12-11 12:17] LABS: Creatinine Urine 197.37 mg/dL (40-278); MALB Creatinine Ratio 6.5 mg/g (0-30); Microalbumin Urine Random < 13.0 mg/L
[2021-12-11 12:19] LABS: Prothrombin Time 20.4 Seconds (9.50-12.10)
[2021-12-11 12:19] LABS: Hemoglobin A1C 6.4 % (<5.7)
== END 2021-12-11 11:39 | disposition home or self-care (01) ==
LOC: CHSLAB 11:40
PROVIDERS: PCP Family Medicine; Visit Provider Family Medicine
DX: I48.0 Paroxysmal atrial fibrillation (principal); Z79.01 Long term (current) use of anticoagulants; E11.9 Type 2 diabetes mellitus without complications
CPT/HCPCS: 36415; 82043; 83036; 85610

== ENCOUNTER 2022-02-05 10:02 | Outpatient (CLI) | payer OTHER, SELFPAY ==
[2022-02-05 10:36] LABS: INR 1.9; Prothrombin Time 19.8 Seconds (9.50-12.10)
== END 2022-02-05 10:03 | disposition home or self-care (01) ==
LOC: CHSLAB 10:04
PROVIDERS: PCP Family Medicine; Visit Provider Family Medicine
DX: Z79.01 Long term (current) use of anticoagulants (principal)
CPT/HCPCS: 36415; 85610

== ENCOUNTER 2022-02-18 12:51 | Outpatient (NON) | payer OTHER, SELFPAY | END 2022-02-18 12:52 | disposition home or self-care (01) | LOC: CHSLAB 12:52 | PROVIDERS: Visit Provider Family Medicine | DX: L82.1 Other seborrheic keratosis (principal) | CPT/HCPCS: 88305 ==

== ENCOUNTER 2022-04-02 09:35 | Outpatient (RCR) | payer OTHER, SELFPAY ==
[2022-01-08 11:43] LABS: INR 2.1
[2022-02-12 10:00] LABS: INR 1.8; Prothrombin Time 18.9 Seconds (9.50-12.10)
[2022-02-25 11:04] LABS: INR 2.9; Prothrombin Time 28.8 Seconds (9.50-12.10)
[2022-03-11 09:58] LABS: INR 2.5; Prothrombin Time 25.3 Seconds (9.50-12.10)
[2022-04-02 10:06] LABS: INR 4.6
== END 2022-04-08 23:59 | disposition home or self-care (01) ==
LOC: CHSLAB 09:35
PROVIDERS: PCP Family Medicine; Visit Provider Family Medicine
DX: Z79.01 Long term (current) use of anticoagulants (principal); I48.0 Paroxysmal atrial fibrillation; N39.0 Urinary tract infection, site not specified
CPT/HCPCS: 36415; 85610; 87077; 87086; 87088; 87186

== ENCOUNTER 2022-06-18 09:51 | Outpatient (RCR) | payer OTHER, SELFPAY ==
[2022-04-10 11:14] LABS: INR 2.5; Prothrombin Time 25.3 Seconds (9.50-12.10)
[2022-04-23 09:29] LABS: INR 2.2
[2022-05-14 11:10] LABS: INR 1.5; Prothrombin Time 15.9 Seconds (9.50-12.10)
[2022-05-23 10:29] LABS: Prothrombin Time 50.2 Seconds (9.50-12.10)
[2022-05-23 10:31] LABS: INR 5.2
[2022-05-26 08:34] LABS: INR 1.9; Prothrombin Time 20.1 Seconds (9.50-12.10)
[2022-06-02 10:11] LABS: INR 2.7; Prothrombin Time 27.7 Seconds (9.50-12.10)
[2022-06-18 10:14] LABS: INR 2.9; Prothrombin Time 28.9 Seconds (9.50-12.10)
== END 2022-07-09 23:59 | disposition home or self-care (01) ==
LOC: CHSLAB 09:51
PROVIDERS: PCP Family Medicine; Visit Provider Family Medicine
DX: Z51.81 Encounter for therapeutic drug level monitoring (principal); Z79.01 Long term (current) use of anticoagulants
CPT/HCPCS: 36415; 85610

== ENCOUNTER 2022-07-08 15:22 | Outpatient (CLI) | payer OTHER, SELFPAY ==
[2022-07-08 16:09] LABS: Prothrombin Time 39.2 Seconds (9.50-12.10)
== END 2022-07-08 15:23 | disposition home or self-care (01) ==
LOC: CHSLAB 15:24
PROVIDERS: PCP Family Medicine; Visit Provider Family Medicine
DX: Z79.01 Long term (current) use of anticoagulants (principal)
CPT/HCPCS: 36415; 85610

== ENCOUNTER 2022-08-06 11:30 | Outpatient (CLI) | payer OTHER, SELFPAY ==
[2022-08-06 11:47] LABS: Hematocrit 44.1 % (35.0-42.0); Hemoglobin 14.9 g/dL (11.7-13.8); Mean Corpuscular HGB Conc 33.8 g/dL (32.0-36.0); Mean Corpuscular Hemoglobin 30.3 pg (27.0-31.0); Mean Corpuscular Volume 89.8 fL (78.0-102.0); Mean Platelet Volume 10.7 fl (9.2-11.8); Platelet Count Result 252 K/mm3 (150-420); Red Blood Count 4.91 M/mm3 (4.20-5.40); Red Cell Distribution Width 13.8 % (11.6-14.4); White Blood Count 5.9 K/mm3 (4.8-10.8)
[2022-08-06 12:09] LABS: Creatinine Urine 231.44 mg/dL (40-278); MALB Creatinine Ratio 12.7 mg/g (0-30); Microalbumin Urine Random 29.6 mg/L
[2022-08-06 12:16] LABS: Alanine Aminotransferase 25 U/L (14-59); Albumin Level 3.9 g/dL (3.4-5.0); Alkaline Phosphatase 56 U/L (46-116); Anion Gap 8 mmol/L (8-16); Aspartate Amino Transferase 18 U/L (15-37); Bilirubin,Total 0.8 mg/dL (0.00-1.00); Blood Urea Nitrogen 19 mg/dL (7-18); Calcium 8.6 mg/dL (8.5-10.1); Carbon Dioxide 26 mmol/L (21-32); Chloride 103 mmol/L (98-108); Estimated Glomerular Filt Rate 48; Glucose 132 mg/dL (70-99); Magnesium 1.9 mg/dL (1.8-2.4); NT Pro B Type Natriuretic Pept 757 pg/mL (0-125); Osmolality Calculated 288 mOsm/kg (285-295); Sodium 137 mmol/L (136-145); Total Protein 7.4 g/dL (6.4-8.2)
== END 2022-08-06 11:31 | disposition home or self-care (01) ==
LOC: CHSLAB 11:31
PROVIDERS: PCP Family Medicine; Visit Provider Family Medicine
DX: E11.9 Type 2 diabetes mellitus without complications (principal); I48.20 Chronic atrial fibrillation, unspecified; I50.32 Chronic diastolic (congestive) heart failure
CPT/HCPCS: 36415; 80053; 82043; 83735; 83880; 85027

== ENCOUNTER 2022-09-09 07:59 | Outpatient (CLI) | payer OTHER, SELFPAY ==
--- NOTE | 2022-09-09 08:05 | ECG_ITS ---
Measurements Intervals [place] Rate: 110 P: [place]: 0 QRS: 84 QRSD: 111 T: 60 QT: 355 QTc: 482 Interpretive Statements ATRIAL FIBRILLATION WITH RAPID VENTRICULAR RESPONSE MODERATE INTRAVENTRICULAR CONDUCTION DELAY [110+ ms QRS DURATION] NONSPECIFIC ST ABNORMALITY ABNORMAL ECG COMPARED TO ECG 05/17/2021 15:36:16 INTRAVENTRICULAR CONDUCTION DELAY NOW PRESENT ST (T WAVE) DEVIATION NOW PRESENT Electronically Signed On 09-09-2022 14:18:34 ADULT PAROLE OFFICER by Robert King M.D.
== END 2022-09-09 08:00 | disposition home or self-care (01) ==
LOC: CHSCARD 08:01
PROVIDERS: PCP Family Medicine; Visit Provider Internal Medicine Cardiovascular Disease
DX: I48.0 Paroxysmal atrial fibrillation (principal); R94.31 Abnormal electrocardiogram [ECG] [EKG]; I48.91 Unspecified atrial fibrillation
CPT/HCPCS: 93005

== ENCOUNTER 2022-09-11 08:01 | Outpatient (CLI) | payer OTHER, SELFPAY ==
--- NOTE | ~2022-09-11 | MM_ITS ---
EXAMINATION: MM screening hari BI w [place] HISTORY: Screening mammogram TECHNIQUE: Craniocaudal and mediolateral oblique 3-D tomosynthesis images were obtained and synthetic 2-D images were generated. CAD analysis was submitted and interpreted. COMPARISON: September 09, 2021, March 04, 2017, February 27, 2016 bilateral screening mammogram examina tions BREAST PARENCHYMAL COMPOSITION: There are scattered areas of fibroglandular density. FINDINGS: There is no evidence of suspicious mass, calcification, or architectural distortion to sugg est malignancy in either breast. There has been no suspicious interval change. IMPRESSION: 1. No mammographic evidence of malignancy. 2. Recommend routine screening mammography in one year. BI-RADS Category 1: Negative Reviewed, dictated and finalized at location A. 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
== END 2022-09-11 08:02 | disposition home or self-care (01) ==
LOC: CHSIMG 08:02
PROVIDERS: PCP Family Medicine; Visit Provider Family Medicine
DX: Z12.31 Encounter for screening mammogram for malignant neoplasm of breast (principal)
CPT/HCPCS: 77063; 77067

== ENCOUNTER 2022-10-10 13:25 | Outpatient (CLI) | payer OTHER, SELFPAY ==
--- NOTE | 2022-10-10 13:33 | ECHO_ITS ---
Patient Info Name: Columba Voss Age: 67 years : 1955 Gender: Female Ht: 63 in Wt: 280 lbs BSA: 2.46 m2 HR: 110 bpm BP: 132 / 69 mmHg Heart Rhythm: Atrial Fibrillation Technical Quality: Fair Exam Date: 10/10/2022 1:19 PM Exam Location: [facility] Patient Status: Outpatient Admit Date: 10/10/2022 Staff Ordering Physician: Shaggy Jimenez DO Core Machine Operator: Yanira Minaya RDCS Attending Provider: Shaggy Jimenez DO Referring Physician: Tony IRIZARRY; Exam Type: CA echo doppler color flow Study Info Indications R06.09 - Other forms of dyspnea Complete two-dimensional, color flow and Doppler transthoracic echocardiogram is performed. Summary 1. Complete two-dimensional, color flow and Doppler transthoracic echocardiogram is performed. 2. Left ventricular systolic function is moderately globally reduced, estimated at 40-45%. 3. Left ventricular chamber dimension is mildly enlarged. 4. There is mild concentric increased left ventricular wall thickness. 5. The left ventricular diastolic function is abnormal. 6. E/e' 14 is mildly elevated. 7. Right ventricular systolic function is mildly reduced with abnormal TAPSE 1.3 cm. 8. Left atrial chamber dimension is mildly enlarged. 9. There is moderate aortic valve sclerosis. 10. There is very mild aortic valve stenosis with a peak velocity of 131 cm/s, mean gradient of 4 mmHg, and aortic valve area of 2.0 cm2. 11. The mitral valve has moderately calcified annulus. 12. There is mild to moderate mitral valve regurgitation. 13. There is trace tricuspid valve regurgitation. 14. No pulmonary hypertension, estimated pulmonary arterial systolic pressure is 23 mmHg. Left Ventricle E/e' 14 is mildly elevated. Atrial fibrillation. Left ventricular systolic function is moderately globally reduced, estimated at 40-45%. Left ventricular chamber dimension is mildly enlarged. There is mild concentric increased left ventricular wall thickness. The left ventricular diastolic function is abnormal. Right Ventricle Right ventricular systolic function is mildly reduced with abnormal TAPSE 1.3 cm. Right ventricular chamber dimension is normal. Left Atria Left atrial chamber dimension is mildly enlarged. Right Atria Right atrial chamber dimension is normal. Aortic Valve There is very mild aortic valve stenosis with a peak velocity of 131 cm/s, mean gradient of 4 mmHg, and aortic valve area of 2.0 cm2. The aortic valve is trileaflet. There is moderate aortic valve sclerosis. There is no aortic valve regurgitation. Pulmonic Valve There is no pulmonic regurgitation. Mitral Valve The mitral valve has moderately calcified annulus. There is no mitral valve stenosis. There is mild to moderate mitral valve regurgitation. Tricuspid Valve There is trace tricuspid valve regurgitation. No pulmonary hypertension, estimated pulmonary arterial systolic pressure is 23 mmHg. Pericardium/Pleural There is no pericardial effusion. Inferior Vena Cava Normal inferior vena cava with >50% collapse upon inspiration consistent with normal right atrial pressure, 5 mmHg. Aorta The aortic root size at the sinus of Valsalva is normal. Pericardium Name Value Normal Pericardium 2D/MM
== END 2022-10-10 13:26 | disposition home or self-care (01) ==
LOC: CHSIMG 13:26
PROVIDERS: PCP Family Medicine; Visit Provider Internal Medicine Cardiovascular Disease
DX: R06.09 Other forms of dyspnea (principal); I08.3 Combined rheumatic disorders of mitral, aortic and tricuspid valves
CPT/HCPCS: 93306

== ENCOUNTER 2022-10-13 10:31 | Outpatient (CLI) | payer OTHER, SELFPAY ==
--- NOTE | 2022-10-13 10:38 | EST_ITS ---
Patient Info Name: Columba Voss Age: 67 years : 1955 Gender: Female Ht: 63 in Wt: 265 lbs BSA: 2.38 m2 Exam Date: 10/13/2022 12:12 PM Exam Location: [facility] Patient Status: Outpatient Admit Date: 10/13/2022 Staff Ordering Physician: Shaggy Jimenez DO Attending Provider: DO LUIS Exam Type: CA stress sophia w NM Summary 1. 1. Negative lexiscan stress test for ischemic ST changes by ECG criteria. 2. 2. Stable hemodynamics throughout the test. 3. 3. Nuclear scan to follow and will be reported separately. Please correlate with it. 4. 4. Patient informed of the above results. Protocol: LEXISCAN Stress ECG Details Stage: REST Duration (min): 3 min : 17 sec HR (bpm): 107 SBP (mmHg): 125 DBP (mmHg): 88 Stage: REST Duration (min): 19 min : 49 sec HR (bpm): 90 SBP (mmHg): 125 DBP (mmHg): 88 Stage: STAGE 1 Duration (min): 0 min : 16 sec HR (bpm): 103 SBP (mmHg): 125 DBP (mmHg): 88 Stage: RECOVERY Duration (min): 0 min : 44 sec HR (bpm): 107 SBP (mmHg): 125 DBP (mmHg): 88 Stage: RECOVERY Duration (min): 1 min : 44 sec HR (bpm): 93 SBP (mmHg): 103 DBP (mmHg): 69 Stage: RECOVERY Duration (min): 2 min : 44 sec HR (bpm): 95 SBP (mmHg): 125 DBP (mmHg): 83 Stage: RECOVERY Duration (min): 3 min : 44 sec HR (bpm): 103 SBP (mmHg): 115 DBP (mmHg): 84 Stage: RECOVERY Duration (min): 4 min : 44 sec HR (bpm): 103 SBP (mmHg): 125 DBP (mmHg): 88 Stage: RECOVERY Duration (min): 5 min : 44 sec HR (bpm): 104 SBP (mmHg): 121 DBP (mmHg): 87 Stage: RECOVERY Duration (min): 6 min : 4 sec HR (bpm): 104 SBP (mmHg): 121 DBP (mmHg): 87 Rest HR: 90 bpm Peak HR: 120 bpm Rest Sys BP: 125 mmHg Peak Sys BP: 125 mmHg Max Pred HR: 151 bpm % Max Pred HR: 79 % Target HR: 128 bpm Max RPP: 15,000 bpm*mmHg Termination Reason: Completed protocol Cardiac Symptoms: Shortness of breath Total Time: 0 min : 16 sec Rest Pinto BP: 88 mmHg Peak Pinto BP: 88 mmHg Total Dose: 0.4 mg Resting ECG Atrial fibrillation. Stress ECG No ST changes. Arrhythmias None. Report Signatures
--- NOTE | 2022-10-13 15:03 | WPDCARIOSTRE ---
Nuclear Stress Test INDICATIONS Indications: ZARAGOZA PROCEDURE Procedure Performed: Myocardial Perf Spect-Multi Procedure: Patient underwent a lexiscan stress test and immediately was injected with 31.5 mCi of cardioloyte. Multiple tomographic images were obtained. These are of good quality. There is evidence of moderate size, moderate severity anteroapical perfusion defect during stress imaging. A separate resting images were obtained after patient was injected with 11.2 mCi of cardiolyte. Multiple tomographic images were obtained. These are of good quality. There is evidence of moderate size, moderate severity anteroapical perfusion defect during rest imaging. CONCLUSION Conclusion: 1. Abnormal myocardial perfusion imaging demonstrating fixed moderate size, moderate severity anteroapical perfusion defect suggestive of prior myocardial infarct or scar. 2. No evidence of reversible ischemia. 3. Left ventriculogram demonstrates global hypokinesis with anteroapical septum with severe hypokinesis, with measured ejection fraction of 35%. 4. TID score 0.9 is normal.
== END 2022-10-13 10:32 | disposition home or self-care (01) ==
LOC: CHSCARD 10:35
PROVIDERS: PCP Family Medicine; Visit Provider Internal Medicine Cardiovascular Disease
DX: R06.09 Other forms of dyspnea (principal); R94.39 Abnormal result of other cardiovascular function study
CPT/HCPCS: 78452; 93017; A9502; J2785

== ENCOUNTER 2022-10-13 13:49 | Outpatient (RCR) | payer OTHER, SELFPAY ==
[2022-07-16 13:42] LABS: INR 1.7; Prothrombin Time 17.8 Seconds (9.50-12.10)
[2022-08-06 10:22] LABS: INR 1.8; Prothrombin Time 18.9 Seconds (9.50-12.10)
[2022-08-19 09:26] LABS: Prothrombin Time 21.1 Seconds (9.50-12.10)
[2022-09-17 08:40] LABS: INR 1.9; Prothrombin Time 19.7 Seconds (9.50-12.10)
[2022-09-23 11:10] LABS: Prothrombin Time 20.8 Seconds (9.50-12.10)
[2022-10-13 14:16] LABS: Prothrombin Time 21.2 Seconds (9.50-12.10)
== END 2022-10-14 23:59 | disposition home or self-care (01) ==
LOC: CHSLAB 13:49
PROVIDERS: PCP Family Medicine; Visit Provider Family Medicine
DX: Z51.81 Encounter for therapeutic drug level monitoring (principal); Z79.01 Long term (current) use of anticoagulants
CPT/HCPCS: 36415; 85610

== ENCOUNTER 2022-12-03 09:48 | Outpatient (CLI) | payer OTHER, SELFPAY ==
[2022-12-03 10:22] LABS: INR 2.8; Prothrombin Time 28.7 Seconds (9.50-12.10)
[2022-12-03 10:40] LABS: Uric Acid 12.8 mg/dL (2.6-6.0)
== END 2022-12-03 09:49 | disposition home or self-care (01) ==
LOC: CHSLAB 09:50
PROVIDERS: PCP Family Medicine; Visit Provider Family Medicine
DX: M10.9 Gout, unspecified (principal); Z79.01 Long term (current) use of anticoagulants
CPT/HCPCS: 36415; 84550; 85610

== ENCOUNTER 2022-12-09 11:23 | Outpatient (CLI) | payer OTHER, SELFPAY ==
[2022-12-09 12:02] LABS: INR 3.4; Prothrombin Time 34.4 Seconds (9.50-12.10)
[2022-12-09 13:07] LABS: Hemoglobin A1C 6.5 % (<5.7)
== END 2022-12-09 11:24 | disposition home or self-care (01) ==
LOC: CHSLAB 11:26
PROVIDERS: PCP Family Medicine; Visit Provider Family Medicine
DX: E11.9 Type 2 diabetes mellitus without complications (principal); Z79.01 Long term (current) use of anticoagulants
CPT/HCPCS: 36415; 83036; 85610

== ENCOUNTER 2022-12-16 10:41 | Outpatient (RCR) | payer OTHER, SELFPAY ==
[2022-11-07 10:41] LABS: INR 2.5; Prothrombin Time 25.2 Seconds (9.50-12.10)
[2022-12-16 11:19] LABS: INR 2.5; Prothrombin Time 25.9 Seconds (9.50-12.10)
== END 2023-02-05 23:59 | disposition home or self-care (01) ==
LOC: CHSLAB 10:41
PROVIDERS: PCP Family Medicine; Visit Provider Family Medicine
DX: Z51.81 Encounter for therapeutic drug level monitoring (principal); Z79.01 Long term (current) use of anticoagulants
CPT/HCPCS: 36415; 85610

== ENCOUNTER 2023-01-01 10:26 | Outpatient (CLI) | payer OTHER, SELFPAY ==
[2023-01-01 10:46] LABS: Hematocrit 38.5 % (35.0-42.0); Hemoglobin 12.8 g/dL (11.7-13.8); Mean Corpuscular HGB Conc 33.2 g/dL (32.0-36.0); Mean Corpuscular Hemoglobin 30.3 pg (27.0-31.0); Mean Corpuscular Volume 91.2 fL (78.0-102.0); Mean Platelet Volume 10.5 fl (9.2-11.8); Platelet Count Result 268 K/mm3 (150-420); Red Blood Count 4.22 M/mm3 (4.20-5.40); Red Cell Distribution Width 13.6 % (11.6-14.4); White Blood Count 6.5 K/mm3 (4.8-10.8)
[2023-01-01 11:02] LABS: INR 2.1; Prothrombin Time 22.1 Seconds (9.50-12.10)
[2023-01-01 11:11] LABS: Alanine Aminotransferase 41 U/L (14-59); Albumin Level 3.5 g/dL (3.4-5.0); Alkaline Phosphatase 70 U/L (46-116); Anion Gap 11 mmol/L (8-16); Aspartate Amino Transferase 29 U/L (15-37); Bilirubin,Total 0.6 mg/dL (0.00-1.00); Blood Urea Nitrogen 43 mg/dL (7-18); Calcium 8.8 mg/dL (8.5-10.1); Carbon Dioxide 24 mmol/L (21-32); Chloride 102 mmol/L (98-108); Estimated Glomerular Filt Rate 33; Glucose 185 mg/dL (70-99); Osmolality Calculated 299 mOsm/kg (285-295); Potassium 3.8 mmol/L (3.5-5.1); Sodium 137 mmol/L (136-145); Total Protein 7.5 g/dL (6.4-8.2); Uric Acid 8.2 mg/dL (2.6-6.0)
== END 2023-01-01 10:27 | disposition home or self-care (01) ==
LOC: CHSLAB 10:29
PROVIDERS: PCP Family Medicine; Visit Provider Nurse Practitioner Family
DX: M79.89 Other specified soft tissue disorders (principal); Z79.01 Long term (current) use of anticoagulants
CPT/HCPCS: 36415; 80053; 84550; 85027; 85610

== ENCOUNTER 2023-02-06 13:52 | Outpatient (CLI) | payer OTHER, SELFPAY ==
[2023-02-06 14:08] LABS: Hematocrit 38.8 % (35.0-42.0); Hemoglobin 13.6 g/dL (11.7-13.8); Mean Corpuscular HGB Conc 35.1 g/dL (32.0-36.0); Mean Corpuscular Hemoglobin 31.6 pg (27.0-31.0); Mean Corpuscular Volume 90.2 fL (78.0-102.0); Mean Platelet Volume 10.9 fl (9.2-11.8); Platelet Count Result 254 K/mm3 (150-420); Red Cell Distribution Width 13.8 % (11.6-14.4); White Blood Count 5.6 K/mm3 (4.8-10.8)
[2023-02-06 14:25] LABS: INR 2.2; Prothrombin Time 23.2 Seconds (9.50-12.10)
[2023-02-06 15:28] LABS: Alanine Aminotransferase 34 U/L (14-59); Albumin Level 3.9 g/dL (3.4-5.0); Alkaline Phosphatase 67 U/L (46-116); Anion Gap 9 mmol/L (8-16); Aspartate Amino Transferase 16 U/L (15-37); Bilirubin,Total 0.8 mg/dL (0.00-1.00); Blood Urea Nitrogen 35 mg/dL (7-18); Carbon Dioxide 29 mmol/L (21-32); Chloride 104 mmol/L (98-108); Estimated Glomerular Filt Rate 40; Folic Acid 16.6 ng/mL (8.6->20); Glucose 181 mg/dL (70-99); Osmolality Calculated 307 mOsm/kg (285-295); Potassium 3.9 mmol/L (3.5-5.1); Sodium 142 mmol/L (136-145); Total Protein 7.1 g/dL (6.4-8.2); Vitamin B12 503 pg/mL (193-986)
[2023-02-06 16:05] LABS: Thyroid Stimulating Hormone Reflex 1.53 u/IU/mL (0.36-3.74)
== END 2023-02-06 13:53 | disposition home or self-care (01) ==
PROVIDERS: PCP Family Medicine; Visit Provider Family Medicine
DX: E53.8 Deficiency of other specified B group vitamins (principal); E11.9 Type 2 diabetes mellitus without complications; G62.9 Polyneuropathy, unspecified; Z79.01 Long term (current) use of anticoagulants
CPT/HCPCS: 36415; 80053; 82607; 82746; 83036; 84443; 85027; 85610

== ENCOUNTER 2023-05-04 08:40 | Outpatient (RCR) | payer OTHER, SELFPAY ==
[2023-03-04 09:53] LABS: INR 2.1; Prothrombin Time 21.9 Seconds (9.50-12.10)
[2023-04-08 09:08] LABS: INR 2.3
[2023-05-04 09:05] LABS: INR 2.5; Prothrombin Time 26.1 Seconds (9.50-12.10)
== END 2023-06-02 23:59 | disposition home or self-care (01) ==
LOC: CHSLAB 08:40
PROVIDERS: PCP Family Medicine; Visit Provider Family Medicine
DX: Z51.81 Encounter for therapeutic drug level monitoring (principal); Z79.01 Long term (current) use of anticoagulants
CPT/HCPCS: 36415; 85610

== ENCOUNTER 2023-05-12 09:36 | Outpatient (CLI) | payer OTHER, SELFPAY ==
--- NOTE | ~2023-05-12 | XR_ITS ---
Right elbow Technique: AP, oblique, and lateral views were obtained. Clinical History: Pain Findings: No acute fracture or dislocation is seen. There is mild to moderate osteoarthritis of the e lbow joint. There is a probable 1.4 cm intra-articular loose body anteriorly.. Impression: Moderate osteoarthritis with 1.4 cm probable intra-articular loose body anteriorly. No definite fracture identified. Reviewed, dictated and finalized at location . Impression: Moderate osteoarthritis with 1.4 cm probable intra-articular loose body anterio rly. No definite fracture identified.
== END 2023-05-12 09:37 | disposition home or self-care (01) ==
LOC: CHSIMG 09:37
PROVIDERS: PCP Family Medicine; Visit Provider Family Medicine
DX: M19.021 Primary osteoarthritis, right elbow (principal); M25.521 Pain in right elbow
CPT/HCPCS: 73080

== ENCOUNTER 2023-08-13 09:38 | Outpatient (RCR) | payer OTHER, SELFPAY ==
[2023-06-09 09:59] LABS: INR 1.8; Prothrombin Time 19.3 Seconds (9.50-12.10)
[2023-06-18 09:30] LABS: INR 2.3
[2023-07-09 10:07] LABS: INR 2.3; Prothrombin Time 23.7 Seconds (9.50-12.10)
[2023-08-13 10:01] LABS: INR 2.5; Prothrombin Time 25.4 Seconds (9.50-12.10)
== END 2023-09-07 23:59 | disposition home or self-care (01) ==
LOC: CHSLAB 09:38
PROVIDERS: PCP Family Medicine; Visit Provider Family Medicine
DX: Z51.81 Encounter for therapeutic drug level monitoring (principal); Z79.01 Long term (current) use of anticoagulants
CPT/HCPCS: 36415; 85610

== ENCOUNTER 2023-09-17 08:25 | Outpatient (CLI) | payer OTHER, SELFPAY ==
--- NOTE | ~2023-09-17 | MM_ITS ---
EXAMINATION: MM screening hari BI w [place] HISTORY: Screening TECHNIQUE: Craniocaudal and mediolateral oblique 3-D tomosynthesis images were obtained and synthetic 2-D images were generated. CAD analysis was submitted and interpreted. COMPARISON: Comparison to multiple prior studies sequentially, with oldest reviewed study dated 08/2015. BREAST PARENCHYMAL COMPOSITION: Not dense: There are scattered areas of fibroglandular density. FINDINGS: There is no evidence of suspicious mass, calcification, or architectural distortion to sugg est malignancy in either breast. There has been no suspicious interval change. IMPRESSION: 1. No mammographic evidence of malignancy. 2. Recommend routine screening mammography in one year. BI-RADS Category 1: Negative Reviewed, dictated and finalized at location A. 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
[2023-09-17 09:20] LABS: INR 2.5; Prothrombin Time 25.6 Seconds (9.50-12.10)
== END 2023-09-17 08:26 | disposition home or self-care (01) ==
PROVIDERS: PCP Family Medicine; Visit Provider Family Medicine
DX: Z12.31 Encounter for screening mammogram for malignant neoplasm of breast (principal); Z79.01 Long term (current) use of anticoagulants
CPT/HCPCS: 36415; 77063; 77067; 85610

== ENCOUNTER 2023-11-25 09:53 | Outpatient (CLI) | payer OTHER, SELFPAY ==
--- NOTE | ~2023-11-25 | XR_ITS ---
EXAMINATION: XR hand BI arthritis min 3V DATE: 11/25/2023 10:27 INDICATION: Arthritis, left hand worse than right. TECHNIQUE: 4 views of right hand and 4 views of left hand were obtained. COMPARISON: None. FINDINGS: RIGHT HAND: There is an old healed fracture of distal radius with 7 degrees dorsal tilt of the distal articular surface. There is an old fracture of ulnar styloid with nonunion. No acute fracture. There is abutment of the lunate and ulna with bone remodeling, consistent with ulnolunate abutment syndrom e. There is mild osteoarthritis of first carpometacarpal joint and many of the metacarpophalangeal arden ints and interphalangeal joints. There is moderate osteoarthritis of first interphalangeal joint, sev ere osteoarthritis of second and third distal interphalangeal joints, and moderate osteoarthritis of fifth distal interphalangeal joint. LEFT HAND: Bone alignment is normal. No fracture. There is mild osteoarthritis of triscaphe joint, fi rst carpometacarpal joint, and some of the metacarpophalangeal joints and interphalangeal joints. The re is moderate osteoarthritis of first interphalangeal joint, moderate osteoarthritis of fifth proxim al interphalangeal joint, and severe osteoarthritis of second, third, and fifth distal interphalangea l joints. IMPRESSION: 1. Polyarticular osteoarthritis. Reviewed, dictated and finalized at location A.
[2023-11-25 10:45] LABS: Rheumatoid Factor Screen Negative (Negative)
[2023-11-25 10:46] LABS: CRP 0.6 mg/dL (0.0-0.9); Uric Acid 12.4 mg/dL (2.6-6.0)
[2023-11-27 13:23] LABS: ANA Cascade Screen NEGATIVE (NEGATIVE)
== END 2023-11-25 09:54 | disposition home or self-care (01) ==
LOC: CHSLAB 09:54
PROVIDERS: PCP Family Medicine; Visit Provider Family Medicine
DX: M79.642 Pain in left hand (principal); M79.641 Pain in right hand; M19.042 Primary osteoarthritis, left hand; M19.041 Primary osteoarthritis, right hand
CPT/HCPCS: 36415; 73130; 83516; 84550; 86038; 86140; 86225; 86235; 86430

== ENCOUNTER 2023-12-10 09:42 | Outpatient (RCR) | payer OTHER, SELFPAY ==
[2023-10-13 10:19] LABS: Prothrombin Time 21.2 Seconds (9.50-12.1)
[2023-11-10 10:14] LABS: INR 2.2; Prothrombin Time 22.7 Seconds (9.50-12.1)
[2023-12-10 10:16] LABS: INR 2.3; Prothrombin Time 23.9 Seconds (9.50-12.1)
== END 2024-01-11 23:59 | disposition home or self-care (01) ==
LOC: CHSLAB 09:42
PROVIDERS: PCP Family Medicine; Visit Provider Family Medicine
DX: Z51.81 Encounter for therapeutic drug level monitoring (principal); R10.9 Unspecified abdominal pain; Z79.01 Long term (current) use of anticoagulants
CPT/HCPCS: 36415; 85610

== ENCOUNTER 2024-01-12 09:27 | Outpatient (RCR) | payer OTHER, SELFPAY ==
[2024-01-12 09:53] LABS: INR 2.3; Prothrombin Time 23.9 Seconds (9.50-12.1)
== END 2024-04-11 23:59 | disposition home or self-care (01) ==
LOC: CHSLAB 09:27
PROVIDERS: PCP Family Medicine; Visit Provider Family Medicine
DX: Z51.81 Encounter for therapeutic drug level monitoring (principal); Z79.01 Long term (current) use of anticoagulants
CPT/HCPCS: 36415; 85610

== ENCOUNTER 2024-02-08 12:04 | Outpatient (CLI) | payer OTHER, SELFPAY ==
--- NOTE | ~2024-02-08 | XR_ITS ---
EXAMINATION: XR chest 2V 02/08/2024 12:30 INDICATION: Dyspnea with exertion. Shortness of breath and cough. Aspiration. PROCEDURE: 2 view chest COMPARISON: 05/17/2021 FINDINGS: The lungs are clear. The cardiomediastinal silhouette is within normal limits. There are no pleural effusions. There is no pneumothorax suspected. IMPRESSION: 1: NO ACUTE CARDIOPULMONARY DISEASE. Reviewed, dictated and finalized at location B.
[2024-02-08 12:15] LABS: Basophils Percent Auto 1.8 % (0.0-1.0); Eosinophils Absolute Auto 0.05 K/mm3 (0.02-0.50); Eosinophils Percent Auto 0.9 % (1.0-6.0); Hematocrit 40.8 % (35.0-42.0); Hemoglobin 14.2 g/dL (11.7-13.8); Immature Granulocyte Absolute 0.04 K/mm3 (0.00-0.00); Immature Granulocyte Percent A 0.7 % (0.0-0.0); Lymphocytes Absolute Auto 1.23 K/mm3 (1.10-4.50); Lymphocytes Percent Auto 22.3 % (18.0-42.0); Mean Corpuscular HGB Conc 34.8 g/dL (32-36); Mean Corpuscular Hemoglobin 30.5 pg (27.0-31.0); Mean Corpuscular Volume 87.7 fL (78.0-102.0); Mean Platelet Volume 10.7 fl (9.2-11.8); Monocytes Absolute Auto 0.41 K/mm3 (0.10-0.90); Monocytes Percent Auto 7.4 % (2.0-11.0); Neutrophils Absolute Auto 3.69 K/mm3 (1.70-7.20); Neutrophils Percent Auto 66.9 % (50.0-70.0); Platelet Count Result 247 K/mm3 (150-420); Red Blood Count 4.65 M/mm3 (4.20-5.40); White Blood Count 5.5 K/mm3 (4.8-10.8)
[2024-02-08 12:32] LABS: INR 2.3; Prothrombin Time 23.7 Seconds (9.50-12.1)
[2024-02-08 12:35] LABS: Creatinine Urine 42.76 mg/dL (40-278); MALB Creatinine Ratio 30.4 mg/g (0-30); Microalbumin Urine Random < 13.0 mg/L
[2024-02-08 12:37] LABS: Hemoglobin A1C 7.6 % (<5.7)
[2024-02-08 13:22] LABS: Chloride 104 mmol/L (98-108); Potassium 3.8 mmol/L (3.5-5.1); Sodium 140 mmol/L (136-145)
[2024-02-08 13:23] LABS: Alanine Aminotransferase 41 U/L (14-59); Alkaline Phosphatase 65 U/L (46-116); Anion Gap 10 mmol/L (4-12); Aspartate Amino Transferase 28 U/L (15-37); Bilirubin,Total 0.9 mg/dL (0.00-1.00); Blood Urea Nitrogen 21 mg/dL (7-18); Calcium 8.8 mg/dL (8.5-10.1); Carbon Dioxide 26 mmol/L (21-32); Cholesterol 222 mg/dL (0-200); Estimated Glomerular Filt Rate 54; Glucose 181 mg/dL (70-99); HDL Direct 51 mg/dL (40-60); LDL Cholesterol Calculated 128 mg/dL (<130); Magnesium 1.9 mg/dL (1.8-2.4); NT Pro B Type Natriuretic Pept 1451 pg/mL (0-125); Osmolality Calculated 298 mOsm/kg (285-295); Total Protein 7.4 g/dL (6.4-8.2); Triglycerides 213 mg/dL (0-150)
[2024-02-09 11:59] LABS: Vitamin D 25 Hydroxy 11 ng/mL (30-100)
== END 2024-02-08 12:05 | disposition home or self-care (01) ==
LOC: CHSLAB 12:06
PROVIDERS: PCP Nurse Practitioner Family; Visit Provider Nurse Practitioner Family
DX: Z79.01 Long term (current) use of anticoagulants (principal); I48.0 Paroxysmal atrial fibrillation; Z79.899 Other long term (current) drug therapy; E78.5 Hyperlipidemia, unspecified; E11.69 Type 2 diabetes mellitus with other specified complication; I50.9 Heart failure, unspecified; R06.09 Other forms of dyspnea
CPT/HCPCS: 36415; 71046; 80053; 80061; 82043; 82306; 83036; 83735; 83880; 85025; 85610

== ENCOUNTER 2024-02-15 10:29 | Outpatient (CLI) | payer OTHER, SELFPAY ==
--- NOTE | 2024-02-15 10:44 | ECG_ITS ---
Test Date: 2024-02-15 10:57:16 Measurements Intervals [place] Rate: 89 P: 0 MT: 0 QRS: 9 QRSD: 109 T: 38 QT: 401 QTc: 490 Interpretive Statements ATRIAL FIBRILLATION DELAYED PRECORDIAL R/S TRANSITION ABNORMAL ECG No previous ECG available for comparison Electronically Signed On 02-15-2024 11:06:17 CDT by Shaggy Jimenez D.O.
== END 2024-02-15 10:30 | disposition home or self-care (01) ==
LOC: CHSCARD 10:31
PROVIDERS: PCP Nurse Practitioner Family; Visit Provider Nurse Practitioner Family
DX: I48.91 Unspecified atrial fibrillation (principal); R94.31 Abnormal electrocardiogram [ECG] [EKG]
CPT/HCPCS: 93005

== ENCOUNTER 2024-04-05 09:12 | Outpatient (CLI) | payer OTHER, SELFPAY ==
[2024-04-05 09:38] LABS: INR 2.8; Prothrombin Time 28.1 Seconds (9.50-12.1)
[2024-04-05 14:31] LABS: Alanine Aminotransferase 37 U/L (14-59); Albumin Level 3.8 g/dL (3.4-5.0); Alkaline Phosphatase 58 U/L (46-116); Anion Gap 12 mmol/L (4-12); Aspartate Amino Transferase 22 U/L (15-37); Bilirubin,Total 0.4 mg/dL (0.00-1.00); Blood Urea Nitrogen 70 mg/dL (7-18); Calcium 8.5 mg/dL (8.5-10.1); Carbon Dioxide 24 mmol/L (21-32); Chloride 99 mmol/L (98-108); Estimated Glomerular Filt Rate 15; Glucose 123 mg/dL (70-99); Osmolality Calculated 301 mOsm/kg (285-295); Potassium 5.1 mmol/L (3.5-5.1); Sodium 135 mmol/L (136-145); Total Protein 6.9 g/dL (6.4-8.2)
== END 2024-04-05 09:13 | disposition home or self-care (01) ==
PROVIDERS: PCP Family Medicine; Visit Provider Family Medicine
DX: I50.9 Heart failure, unspecified (principal); Z79.01 Long term (current) use of anticoagulants
CPT/HCPCS: 36415; 80053; 85610

== ENCOUNTER 2024-04-05 15:52 | Emergency (ER) | payer OTHER, SELFPAY ==
[2024-04-05 15:58] VITALS: BP 110/56; PULSE 99; RESP 22; TEMP 36.2; O2SAT 96
[2024-04-05 16:05] VITALS: RESP 20
[2024-04-05 16:25] LABS: Basophils Absolute Auto 0.07 K/mm3 (0.00-0.10); Basophils Percent Auto 1.3 % (0.0-1.0); Eosinophils Absolute Auto 0.07 K/mm3 (0.02-0.50); Eosinophils Percent Auto 1.3 % (1.0-6.0); Hemoglobin 13.2 g/dL (11.7-13.8); Immature Granulocyte Absolute 0.02 K/mm3 (0.00-0.00); Immature Granulocyte Percent A 0.4 % (0.0-0.0); Lymphocytes Absolute Auto 1.43 K/mm3 (1.10-4.50); Lymphocytes Percent Auto 26.7 % (18.0-42.0); Mean Corpuscular Hemoglobin 30.4 pg (27.0-31.0); Mean Corpuscular Volume 92.2 fL (78.0-102.0); Mean Platelet Volume 12.1 fl (9.2-11.8); Monocytes Absolute Auto 0.41 K/mm3 (0.10-0.90); Monocytes Percent Auto 7.7 % (2.0-11.0); Neutrophils Absolute Auto 3.35 K/mm3 (1.70-7.20); Neutrophils Percent Auto 62.6 % (50.0-70.0); Platelet Count Result 237 K/mm3 (150-420); Red Blood Count 4.34 M/mm3 (4.20-5.40); Red Cell Distribution Width 13.7 % (11.6-14.4); White Blood Count 5.4 K/mm3 (4.8-10.8)
[2024-04-05 16:34] LABS: Creatine Kinase 357 U/L (26-192)
--- NOTE | 2024-04-05 16:37 | ED.RECABL ---
HPI - Recheck/Abnormal Lab/Rx General Chief Complaint: Recheck/Abnormal Lab/Rx Stated Complaint: altered labs Time Seen by Provider: 04/05/24 15:56 Source: patient Mode of arrival: ambulatory Limitations: no limitations History of Present Illness HPI narrative: 68 year old female presents to the Emergency Department per her [employer]'s instructions. Patient had some lab tests done today and they were abnormal. Advised to come to the Emergency Department. Patient denies any acute problems today. MD complaint: abnormal lab Symptoms since prior visit: no new symptoms Related Data Allergies Allergy/AdvReac Type Severity Reaction Status Date / Time No Known Allergies Allergy Verified 04/05/24 16:07 Review of Systems Review of Systems: All systems reviewed & are unremarkable except as noted in HPI and below Constitutional: Constitutional: Reports as per HPI, Reports no additional constitutional complaints, Denies chills and Denies fever(s) Eyes: Eyes: Reports as per HPI ENT: Reports system reviewed and no additional complaints, except as documented Cardiovascular: Cardiovascular: Reports as per HPI and Denies chest pain Respiratory: Respiratory: Reports as per HPI, Denies cough and Denies dyspnea Gastrointestinal: Gastrointestinal: Reports as per HPI, Denies abdominal pain, Denies diarrhea, Denies nausea and Denies vomiting Genitourinary: Genitourinary: Reports no additional female genitourinary complaints, Denies nocturia, Denies dysuria and Denies flank pain Musculoskeletal: Musculoskeletal: Reports no additional musculoskeletal complaints, Denies back pain and Denies myalgias Integumentary/Breasts: Skin/Breast: Reports system reviewed and no additional complaints, except as docu Neurologic: Reports system reviewed and no additional complaints, except as documented, Denies dizziness, Denies focal weakness, Denies numbness and Denies weakness [facility] Past Medical History Medical History Afib Arm swelling DM2 (diabetes mellitus, type 2) Easy fatigability Gout attack Hematuria History of cardioversion 2020 Hyperlipidemia Hypertension Myalgia Need for vaccination Overweight Shortness of breath Shoulder pain, left Surgical History Surgical History History of cholecystectomy History of hip replacement, total Left Hip History of surgical removal of lesion Family History Family History Sibling Lung cancer Sibling Diabetes mellitus Hypertension Sibling Acute myocardial infarction Mother Arthur disease Sibling Accidental Social History Social History Smoking status: Never smoker Alcohol intake: never Substance use: never Substance use type: does not use Lack of Transportation: YES Lack of Food: Never True Current Housing: I Have Housing Concerned About Future Housing: No Difficulty Paying Gas/Electric Bills: No Difficulty Paying for Meds: No Currently Unemployed: Decline to Answer Education: High School Diploma/GED Difficulty w/ Childcare or Family Care: No Living arrangements: with family Additional living arrangements comments: Daughter is staying with her right now. 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
[2024-04-05] MEDS: SODIUM CHLORIDE 0.9% IV 1,000 ML 100 ML IV CONT (16:45)
[2024-04-05 16:46] LABS: Add Urine Microscopic? YES; Appearance Urine Clear (Clear); Bilirubin Urine Negative (Negative); Blood Urine Negative (Negative); Color Urine Light Yellow (Yellow); Glucose Urine UA Negative (Negative); Ketones Urine Negative (Negative); Leukocyte Esterase Ur 2+ (Negative); Nitrate Urine Negative (Negative); Protein Urine Negative (Negative); Urobilinogen Urine 0.2 mg/dL (0.2-1.0); pH Urine 5.5 (5.0-8.0)
[2024-04-05 16:47] LABS: Lactic Acid Reflex 0.7 mmol/L (0.4-2.0)
[2024-04-05 16:52] LABS: Bacteria Urine 1+ /hpf; RBC Urine None seen /hpf (0-2); Squamous Epithelial Cell Urine Few /hpf (Few)
[2024-04-05 17:44] VITALS: BP 106/55; PULSE 86; RESP 18; TEMP 36.4; O2SAT 97
[2024-04-05 18:57] VITALS: BP 110/69; PULSE 109; RESP 18; TEMP 36.5; O2SAT 97
--- NOTE | 2024-04-07 13:25 | PC.NURSE ---
final urine culture reviewed by Dr Alonzo no further action required
== END 2024-04-05 19:02 | disposition short-term general hospital (02) ==
PROVIDERS: Emergency Provider Emergency Medicine; PCP Family Medicine
DX: N19 Unspecified kidney failure (principal); N39.0 Urinary tract infection, site not specified; R74.8 Abnormal levels of other serum enzymes; E11.9 Type 2 diabetes mellitus without complications; E78.5 Hyperlipidemia, unspecified; I10 Essential (primary) hypertension; I48.91 Unspecified atrial fibrillation
CPT/HCPCS: 36415; 81001; 82550; 83605; 85025; 87086; 87088; 96360; 96361; 99285; J7030

== ENCOUNTER 2024-04-05 20:20 | Observation (INO) | payer OTHER, SELFPAY ==
--- NOTE | ~2024-04-05 | US_ITS ---
EXAMINATION: US renal BI DATE: 04/06/2024 12:35 INDICATION: Acute on chronic renal failure. TECHNIQUE: Multiple ultrasound grayscale images of the kidneys were obtained. COMPARISON: CT abdomen and pelvis 10/24/2018 FINDINGS: The right kidney measures 10.6 x 5.7 x 6.0 cm. The left kidney measures 10.9 x 5.9 x 4.6 cm. The kidn eys demonstrate normal parenchymal echogenicity. There is a 10 mm cyst in left kidney. There is no hy dronephrosis. The bladder is normal. IMPRESSION: 1. Normal kidney sizes. No hydronephrosis. Reviewed, dictated and finalized at location A.
[2024-04-05 19:53] VITALS: BP 118/72; PULSE 100; RESP 16; TEMP 36.4; O2SAT 98; BMI 50.4
[2024-04-05 20:00] VITALS: PULSE 100; RESP 16; O2SAT 98; BMI 50.4
[2024-04-05 20:26] LABS: Glucose Point of Care 117 mg/dl (65-105)
[2024-04-05 20:58] LABS: Anion Gap 16 mmol/L (4-12); Blood Urea Nitrogen 82 mg/dL (7-17); Calcium 8.7 mg/dL (8.4-10.2); Carbon Dioxide 20 mmol/L (22-30); Chloride 101 mmol/L (98-107); Creatine Kinase 346 U/L (30-135); Estimated CRCL calculation 23 ml/min; Estimated Glomerular Filt Rate 17; Glucose 123 mg/dL (65-110); Magnesium 2.4 mg/dL (1.6-2.3); Prothrombin Time 31.3 Seconds (11.1-14.7); Sodium 137 mmol/L (137-145)
--- NOTE | 2024-04-05 21:34 | PM.IMHP ---
H&P: HPI History of Present Illness Date/Time: 04/05/24 21:35 Chief Complaint: Abnormal labs. Narrative: This is a 68-year-old female with chronic kidney disease, hypertension, hyperlipidemia, type 2 diabetes mellitus, heart failure with reduced ejection fraction and abnormal diastolic function, paroxysmal atrial fibrillation on chronic anticoagulation, and chronic obstructive pulmonary disease who presented to the emergency department at [facility] earlier today for evaluation of abnormal labs. The patient provides the following history. She had routine labs done today and was told to come to the ER as her creatinine was quite a bit elevated from baseline. She has been feeling just fine and has no complaints. With further questioning she reports being started on spironolactone less than a month ago and she has indeed noticed that her urine output has dropped off a bit. She continues to have lower extremity swelling which has not improved significantly. Appetite has been good. She denies nausea, vomiting, and diarrhea. She also denies lightheadedness, dizziness, syncope, near syncope, chest pain, pleuritic pain, shortness of breath, and calf pain. In the ED: Vital signs were stable on arrival. Labs were significant for sodium of 135, BUN 70, creatinine 3.12, total CK 357. UA was positive for 2+ leukocyte esterase, 79 WBC, and 1+ bacteria. She was given 1 L of normal saline and transfer was initiated to [facility] for nephrology consultation. Review of Systems Review of Systems: 12 systems were reviewed and are negative except for as per HPI. [facility] Past Medical History Medical History (Updated 04/05/24 @ 22:50 by Gena Snell PA-C) Chronic anticoagulation Chronic kidney disease, stage 3 Chronic obstructive pulmonary disease Gout Heart failure with reduced ejection fraction and diastolic dysfunction EF was 40 to 45% on echo in September 2022. Hyperlipidemia Hypertension Paroxysmal atrial fibrillation History of cardioversion and ablation. Type 2 diabetes mellitus Surgical History Surgical History History of cardiac radiofrequency ablation History of cataract extraction History of cholecystectomy History of surgical removal of lesion History of total left hip arthroplasty Family History Family History Sibling Lung cancer Sibling Diabetes mellitus Hypertension Sibling Acute myocardial infarction Mother Williams disease Sibling Accidental Social History Social History (Updated 04/05/24 @ 21:41 by Gena Snell PA-C) Social History: Surrogate medical decision maker: Lauren Woodsr, niece. Code status: Full code. Smoking status: Never smoker Second hand tobacco smoke exposure: Yes Alcohol intake: never Substance use: never Substance use type: does not use Do You Feel Safe in your Home?: Yes Lack of Transportation: YES Lack of Food: Never True Current Housing: I Have Housing Concerned About Future Housing: No Difficulty Paying Gas/Electric Bills: No Difficulty Paying for Meds: No Currently Unemployed: Decline to Answer Education: High School Diploma/GED Difficulty w/ Childcare or Family Care: No Living arrangements: with family Additional living arrangements comments: Daughter is staying with her right now. 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 Spiritual care concerns: No Meds Home Medications and Allergies Home Medications Medication Instructions Recorded Confirmed Type blood-glucose meter #1 ea 08/12/21 04/05/24 Rx blood-glucose meter #1 ea 08/15/21 04/05/24 Rx warfarin 3 mg tablet 6 mg PO DAILY #180 tabs 04/08/23 04/05/24 Rx amlodipine 10 mg tablet 10 mg PO DAILY #90 ta
--- NOTE | 2024-04-05 22:26 | ADMGEN ---
This patient, Columba Voss, was admitted to Medical Room 260-. Patient/family oriented to hospital policies and general routines including ID bracelet, bed and alarms, visiting hours, pain management, procedures, bathroom and other care routines, personal items, smoking policy, room service/diet, and visiting hours. Information on how to activate the Rapid Response Team has been discussed. Patient/Family are encouraged to report perceived risks to care and to ask questions if they do not understand what they are told or what they should do.
[2024-04-05] MEDS: METOPROLOL TARTRATE 25 MG TABLET 75 MG PO (22:35)
[2024-04-05] MEDS: GABAPENTIN 300 MG CAPSULE PO (22:35)
[2024-04-05] MEDS: SODIUM CHLORIDE 0.9% IV 1,000 ML 100 ML IV CONT (22:35)
--- NOTE | 2024-04-06 | ECHO_ITS ---
Patient Info Name: Columba Voss Age: 68 years : 1955 Gender: Female Ht: 63 in Wt: 275 lbs BSA: 2.43 m2 HR: 74 bpm BP: 101 / 65 mmHg Heart Rhythm: Sinus Rhythm Technical Quality: Good Exam Date: 04/06/2024 1:46 PM Exam Location: Echo Lab Patient Status: Inpatient Admit Date: 04/05/2024 Staff Ordering Physician: Zunilda Canales Protective Signal Superintendent: Milton Man RDCS Attending Provider: Zunilda Canales Referring Physician: Ally GAUTHIER; Exam Type: CA echo doppler color flow Study Info Indications - heart failure Complete two-dimensional, color flow and Doppler transthoracic echocardiogram is performed. Summary 1. Complete two-dimensional, color flow and Doppler transthoracic echocardiogram is performed. 2. Left ventricular chamber dimension is mildly enlarged. 3. There is mild concentric increased left ventricular wall thickness. 4. Left ventricular systolic function is mildly globally reduced, estimated at 45-50%. 5. The left ventricular diastolic function is abnormal. 6. E/e' 22 is elevated. 7. Left atrial chamber dimension is mildly enlarged. 8. There is mild aortic valve sclerosis. 9. The mitral valve has mildly calcified annulus. 10. There is mild to moderate mitral valve regurgitation. 11. There is trace tricuspid valve regurgitation. 12. No pulmonary hypertension, estimated pulmonary arterial systolic pressure is 21 mmHg. Left Ventricle E/e' 22 is elevated. Left ventricular systolic function is mildly globally reduced, estimated at 45-50%. Left ventricular chamber dimension is mildly enlarged. There is mild concentric increased left ventricular wall thickness. The left ventricular diastolic function is abnormal. Right Ventricle Right ventricular chamber dimension is normal. Right ventricular systolic function is normal. Left Atria Left atrial chamber dimension is mildly enlarged. Right Atria Right atrial chamber dimension is normal. Aortic Valve The aortic valve is probable trileaflet. There is mild aortic valve sclerosis. There is no aortic valve stenosis. There is no aortic valve regurgitation. Pulmonic Valve There is no pulmonic regurgitation. Mitral Valve The mitral valve has mildly calcified annulus. There is no mitral valve stenosis. There is mild to moderate mitral valve regurgitation. Tricuspid Valve There is trace tricuspid valve regurgitation. No pulmonary hypertension, estimated pulmonary arterial systolic pressure is 21 mmHg. Pericardium/Pleural There is no pericardial effusion. Inferior Vena Cava Normal inferior vena cava with >50% collapse upon inspiration consistent with normal right atrial pressure, 5 mmHg. Aorta The aortic root size at the sinus of Valsalva is normal. Left Ventricular Outflow Tract Name Value Normal LVOT 2D LVOT Diameter 2.0 cm LVOT Doppler LVOT Peak Gradient 3 mmHg LVOT Mean Gradient 3 mmHg LVOT VTI 20 cm LVOT VTI/AV VTI Ratio 0.8 LVOT Stroke Volume 62 ml LVOT CO 4.9 l/min LVOT CI
[2024-04-06 06:33] VITALS: BP 101/65; PULSE 60; RESP 16; TEMP 36.6; O2SAT 97
[2024-04-06 06:34] LABS: Hematocrit 37.2 % (37.0-47.0); Hemoglobin 12.5 g/dL (12.0-15.0); Mean Corpuscular HGB Conc 33.6 g/dl (32-36); Mean Corpuscular Hemoglobin 30.8 pg (26-34); Mean Corpuscular Volume 91.6 fl (80-100); Mean Platelet Volume 11.6 fl (7.4-10.4); Platelet Count Result 183 k/mm3 (150-375); Red Blood Count 4.06 M/mm3 (4.2-5.4); Red Cell Distribution Width 13.9 % (11.5-14.5); White Blood Count 4.4 K/mm3 (4.5-10.0)
[2024-04-06 06:48] LABS: Alanine Aminotransferase 27 U/L (6-35); Albumin Level 3.9 g/dL (3.5-5.1); Alkaline Phosphatase 56 U/L (38-126); Anion Gap 10 mmol/L (4-12); Aspartate Amino Transferase 25 U/L (14-36); Bilirubin,Total 0.6 mg/dL (0.2-1.3); Blood Urea Nitrogen 72 mg/dL (7-17); Calcium 8.7 mg/dL (8.4-10.2); Carbon Dioxide 22 mmol/L (22-30); Chloride 105 mmol/L (98-107); Estimated CRCL calculation 29 ml/min; Estimated Glomerular Filt Rate 22; Glucose 105 mg/dL (65-110); Potassium 4.8 mmol/L (3.4-5.0); Sodium 137 mmol/L (137-145)
[2024-04-06 08:28] LABS: Glucose Point of Care 136 mg/dl (65-105)
[2024-04-06 08:58] VITALS: PULSE 74
[2024-04-06] MEDS: METOPROLOL TARTRATE 25 MG TABLET 75 MG PO ×2 (08:58→20:51)
[2024-04-06] MEDS: ATORVASTATIN 40 MG TABLET PO (08:58)
[2024-04-06] MEDS: GABAPENTIN 300 MG CAPSULE PO ×3 (08:58→17:47)
[2024-04-06] MEDS: amLODIPine BESYLATE 10 MG TABLET PO (08:59)
--- NOTE | 2024-04-06 11:44 | P.PNIM_ITS ---
Progress Note: A&P Assessment and Plan (1) Acute on chronic kidney failure: Code(s): N17.9 - Acute kidney failure, unspecified; N18.9 - Chronic kidney disease, unspecified Status: Acute Assessment and Plan: 04/06/24: * Interval improvement with creatinine trending 3.12-->2.80-->2.20. * Awaiting nephrology consult * Continue IVF at NS at 75 ml/hr. * Monitor and trend labs. * Continue to hold diuretics. * Suspect supradiuresed with concomitant medications of HCTZ, Lasix and Spironolactone. * US Renal pending * Treat associated UTI. * Hold renal offending agents unless absolutely necessary. (2) UTI (urinary tract infection): Code(s): N39.0 - Urinary tract infection, site not specified Status: Acute Assessment and Plan: 04/06/24: * Rocephin 1G Q24 hours * Culture pending. (3) Heart failure with reduced ejection fraction and diastolic dysfunction: Code(s): I50.40 - Unspecified combined systolic (congestive) and diastolic (congestive) heart failure Status: Chronic Assessment and Plan: 04/06/24: * Most recent ECHO from 2022. * ECHO ordered during this hospitalization * Hold diuretics at this time. (4) Type 2 diabetes mellitus: Code(s): E11.9 - Type 2 diabetes mellitus without complications Status: Chronic Assessment and Plan: 04/06/24: * Hypoglycemic protocol * Glucose checks AC and HS * Moderate dose SSI * Consider addition of Lantus if needed * Check A1C * Diabetic diet * Hold Rybelsus (5) Paroxysmal atrial fibrillation: Code(s): I48.0 - Paroxysmal atrial fibrillation Status: Chronic Assessment and Plan: 04/06/24: * Continue Warfarin as ordered. * Daily INR's * Monitor for any s/s of bleeding. 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 * Pt not currently in exacerbation and is not requiring any supplemental oxygen. * Home medication does not include any inhaled medications appropriate for treatment. * Continue to monitor. Time Spent With Patient Time with patient: 25 - 35 minutes Subjective Date/time seen: 04/06/24 7769 Interval history: This very pleasant pt was examined in interval assessment since being admitted to the hospital for acute on chronic renal failure deemed most likely an JOSEFINA from multiple diuretics. Pt has hx of heart failure with reduced EF with last echo one year ago that showed mildly reduced LVSF at 40-45% and abnormal diastolic function as well. In addition to her Lasix and HCTZ, she states her doctor recently started her on Spironolactone as well by her [employer] with the past couple of months. She states since starting it she has noted less UOP. She had routine labs yesterday and it was noted that she had a markedly increased renal function with creatinine of 3.12 over her baseline creatinine of 1.0-1.5. She was admitted here after transferring from [place] for further therapy and workup. Renal US was ordered, diuretics were held and pt receiving IVF as she does not appear to be in overload. Nephrology is consulted. Her repeat labs this AM show interval improvement with creatinine of 2.20. She denies any dyspnea, pain or acute complaints. Review of Systems Review of Systems: All systems reviewed & are unrem
--- NOTE | 2024-04-06 11:44 | PM.IMPN ---
Progress Note: A&P Assessment and Plan (1) Acute on chronic kidney failure: Code(s): N17.9 - Acute kidney failure, unspecified; N18.9 - Chronic kidney disease, unspecified Status: Acute Assessment and Plan: 04/06/24: Interval improvement with creatinine trending 3.12-->2.80-->2.20. Awaiting nephrology consult Continue IVF at NS at 75 ml/hr. Monitor and trend labs. Continue to hold diuretics. Suspect supradiuresed with concomitant medications of HCTZ, Lasix and Spironolactone. US Renal pending Treat associated UTI. Hold renal offending agents unless absolutely necessary. (2) UTI (urinary tract infection): Code(s): N39.0 - Urinary tract infection, site not specified Status: Acute Assessment and Plan: 04/06/24: Rocephin 1G Q24 hours Culture pending. (3) Heart failure with reduced ejection fraction and diastolic dysfunction: Code(s): I50.40 - Unspecified combined systolic (congestive) and diastolic (congestive) heart failure Status: Chronic Assessment and Plan: 04/06/24: Most recent ECHO from 2022. ECHO ordered during this hospitalization Hold diuretics at this time. (4) Type 2 diabetes mellitus: Code(s): E11.9 - Type 2 diabetes mellitus without complications Status: Chronic Assessment and Plan: 04/06/24: Hypoglycemic protocol Glucose checks AC and HS Moderate dose SSI Consider addition of Lantus if needed Check A1C Diabetic diet Hold Rybelsus (5) Paroxysmal atrial fibrillation: Code(s): I48.0 - Paroxysmal atrial fibrillation Status: Chronic Assessment and Plan: 04/06/24: Continue Warfarin as ordered. Daily INR's Monitor for any s/s of bleeding. 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 Pt not currently in exacerbation and is not requiring any supplemental oxygen. Home medication does not include any inhaled medications appropriate for treatment. Continue to monitor. Time Spent With Patient Time with patient: 25 - 35 minutes Subjective Date/time seen: 04/06/24 0845 Interval history: This very pleasant pt was examined in interval assessment since being admitted to the hospital for acute on chronic renal failure deemed most likely an JOSEFINA from multiple diuretics. Pt has hx of heart failure with reduced EF with last echo one year ago that showed mildly reduced LVSF at 40-45% and abnormal diastolic function as well. 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 She states since starting it she has noted less UOP. She had routine labs yesterday and it was noted that she had a markedly increased renal function with creatinine of 3.12 over her baseline creatinine of 1.0-1.5. She was admitted here after transferring from [place] for further therapy and workup. Renal US was ordered, diuretics were held and pt receiving IVF as she does not appear to be in overload. Nephrology is consulted. Her repeat labs this AM show interval improvement with creatinine of 2.20. She denies any dyspnea, pain or acute complaints. Review of Systems Review of Systems: All systems reviewed & are unremarkable except as noted in HPI and below Exam Narrative: General: Nontoxic-appearing female sitting up in bed in no acute distress. HEENT: PERRL, EOMI. MMM with patent O/P. Neck: Supple. FROM of neck. Respiratory: CTAB in all nicole. Cardiovascular: Regular rate and rhythm with S1-S2. No S3, S4, m,r,g,h or displacement of PMI. No peripheral edema. Gastrointestinal: Abdomen is soft, obese, nontender, and nondistended
[2024-04-06] MEDS: SODIUM CHLORIDE 0.9% IV 1,000 ML 75 ML IV CONT (12:34)
[2024-04-06 12:38] LABS: Glucose Point of Care 151 mg/dl (65-105)
[2024-04-06 13:29] LABS: Hemoglobin A1C 8.5 % (<5.7)
--- NOTE | 2024-04-06 13:38 | PM.CNNEP ---
Assessment and Plan Assessment and plan (1) JOSEFINA (acute kidney injury): Code(s): N17.9 - Acute kidney failure, unspecified Status: Acute Assessment and Plan: presumably due to infection (UTI) in conjunction with diuretic therapy along with XIOMARA-I improvement noted with current therapy (IVFs, holding diuretics + XIOMARA-I, IV antibiotics...etc) follow-up on urine studies and renal ultrasound; trend CPK follow trend of repeat labs and UOP (2) Chronic kidney disease, stage 3: Code(s): N18.30 - Chronic kidney disease, stage 3 unspecified Status: Chronic Assessment and Plan: baseline creatinine seems to run ~ 1.0 - 1.5mg/dl in the last few years likely secondary to diabetes, hypertension and CHF along with necessity of diuretic therapy (3) UTI (urinary tract infection): Code(s): N39.0 - Urinary tract infection, site not specified Status: Acute Assessment and Plan: admission UA highly suggestive follow urine culture on antibiotics (4) Heart failure with reduced ejection fraction and diastolic dysfunction: Code(s): I50.40 - Unspecified combined systolic (congestive) and diastolic (congestive) heart failure Status: Chronic Assessment and Plan: appears compensated at this time diuretics on hold follow respiratory status (5) Hypertension: Code(s): I10 - Essential (primary) hypertension Status: Chronic Assessment and Plan: well controlled at this time follow trend of hemodynamics (6) DM2 (diabetes mellitus, type 2): Qualifiers: Diabetes mellitus complication status: with circulatory complication Diabetes mellitus complication detail: with other circulatory complications Code(s): E11.9 - Type 2 diabetes mellitus without complications Status: Chronic Assessment and Plan: follow accu-cheks glycemic control per hospitalist I will continue to follow the patient with you while she remains hospitalized and make further recommendations as deemed necessary. Thank you for allowing me to participate in the care of this patient. History of Present Illness Reason for Consult Consult date: 04/06/24 Reason for consult: acute renal failure (on chronic kidney disease) Chief Complaint Chief complaint: Acute/Chronic Kidney Failure History of Present Illness Narrative: the patient is a 68-year-old female with a past medical history as outlined below who initially presented to the emergency room at [facility] - [place], [place] for further evaluation of abnormal labs. The patient apparently had routine outpatient labs done earlier on the day of admission and when the results of these came back, she was informed by her physician to come to the ER for further assessment as her renal function /creatinine was quite elevated from her normal baseline. In spite of these laboratory abnormalities, the patient herself stated that she felt reasonably well and had no acute complaints. She does mention that she was recently started spironolactone about a month ago and since that time, she thinks that her urine output has decreased quite a bit. In spite of the use of spironolactone, she also states that her lower extremity swelling /edema has not really improved which was dull point of starting this medication. She reports her oral intake has been fairly well and denies any nausea, vomiting, diarrhea, lightheadedness, dizziness, palpitations, chest pain, shortness of breath or diarrhea. Workup and evaluation at [facility] emergency room demonstrated the patient being hemodynamically stable and afebrile. Repeat labs were done which showed her sodium level at 135, BUN of 70 and a creatinine of 3.12 with a total CPK of 357. her UA was positive for 2+ leukocyte esterase, seven white blood cells, and 1+ bacteria. Given the significant decline in her renal function, she received IV fluids in the emergency room and was subsequentl
[2024-04-06 13:47] LABS: Potassium Urine Random 48.9 meq/L
[2024-04-06 13:47] LABS: Creatinine Urine 116.4 mg/dL; Sodium Urine Random 55 meq/L; Total Protein Urine Random < 5 mg/dL; Urea Random Urine 991 MG/DL
[2024-04-06 14:00] VITALS: BP 100/59; PULSE 86; RESP 14; TEMP 36.6; O2SAT 99
[2024-04-06 14:07] LABS: Eosinophil Urine None Seen % (None Seen); Urine Eos QC 2nd Tech Confirmed
[2024-04-06 14:35] LABS: INR 2.7
[2024-04-06 17:22] LABS: Glucose Point of Care 131 mg/dl (65-105)
[2024-04-06] MEDS: WARFARIN (*PBKC) 3 MG TABLET 6 MG PO (17:46)
[2024-04-06] MEDS: WARFARIN (*PBKC) 1 MG TABLET PO (17:47)
--- NOTE | 2024-04-06 18:56 | PHAR ---
HOME MEDICATION: NATE (SEMAGLUTIDE) TAKE 1 TABLET BY MOUTH ONCE DAILY, VERIFIED IN PHARMACY 04/06/24 Drug Name: Ryberniesus Ingredients: Semaglutide -- 14 MG Related Documents: DRUGDEX Evaluations - SEMAGLUTIDE Color: White to light yellow Shape: Oval Imprint: 14 ; valeriano Form: Oral Tablet --MICROMEDEX
[2024-04-06 20:51] VITALS: PULSE 84
[2024-04-06 20:53] VITALS: BP 118/61; PULSE 77; RESP 16; TEMP 36.6; O2SAT 98
[2024-04-06 20:59] LABS: Glucose Point of Care 161 mg/dl (65-105)
[2024-04-07 05:48] VITALS: BP 114/75; PULSE 100; RESP 16; TEMP 36.6; O2SAT 97
[2024-04-07] MEDS: SODIUM CHLORIDE 0.9% IV 1,000 ML 75 ML IV CONT (05:51)
[2024-04-07 06:17] LABS: Basophils Absolute Auto 0.1 K/mm3 (0.0-0.1); Basophils Percent Auto 1.5 % (0.2-1.2); Eosinophils Absolute Auto 0.1 K/mm3 (0-0.3); Eosinophils Percent Auto 1.5 % (0-4.4); Hematocrit 36.6 % (37.0-47.0); Hemoglobin 11.9 g/dL (12.0-15.0); Immature Granulocyte Absolute 0.02 K/mm3 (0.00-0.031); Immature Granulocyte Percent A 0.5 % (0-0.5); Lymphocytes Absolute Auto 1.33 K/mm3 (0.9-3.2); Lymphocytes Percent Auto 32.8 % (18.3-44.2); Mean Corpuscular HGB Conc 32.5 g/dl (32-36); Mean Corpuscular Hemoglobin 30.2 pg (26-34); Mean Corpuscular Volume 92.9 fl (80-100); Mean Platelet Volume 11.4 fl (7.4-10.4); Monocytes Absolute Auto 0.3 K/mm3 (0.1-0.6); Monocytes Percent Auto 8.1 % (2.6-8.5); Neutrophils Absolute Auto 2.3 K/mm3 (1.3-6.7); Neutrophils Percent Auto 55.6 % (45.5-73.1); Platelet Count Result 172 k/mm3 (150-375); Red Blood Count 3.94 M/mm3 (4.2-5.4); Red Cell Distribution Width 13.7 % (11.5-14.5); White Blood Count 4.1 K/mm3 (4.5-10.0)
[2024-04-07 06:21] LABS: Creatine Kinase 285 U/L (30-135)
[2024-04-07 06:25] LABS: Alanine Aminotransferase 24 U/L (6-35); Albumin Level 3.6 g/dL (3.5-5.1); Alkaline Phosphatase 54 U/L (38-126); Anion Gap 10 mmol/L (4-12); Aspartate Amino Transferase 22 U/L (14-36); Bilirubin,Total 0.7 mg/dL (0.2-1.3); Blood Urea Nitrogen 55 mg/dL (7-17); Calcium 8.6 mg/dL (8.4-10.2); Carbon Dioxide 20 mmol/L (22-30); Chloride 107 mmol/L (98-107); Estimated CRCL calculation 39 ml/min; Estimated Glomerular Filt Rate 32; Glucose 115 mg/dL (65-110); Potassium 4.5 mmol/L (3.4-5.0); Sodium 137 mmol/L (137-145)
--- NOTE | 2024-04-07 07:54 | P.PNIM_ITS ---
Progress Note: A&P Assessment and Plan (1) Acute on chronic kidney failure: Code(s): N17.9 - Acute kidney failure, unspecified; N18.9 - Chronic kidney disease, unspecified Status: Acute Assessment and Plan: 04/06/24: * Interval improvement with creatinine trending 3.12-->2.80-->2.20. * Awaiting nephrology consult * Continue IVF at NS at 75 ml/hr. * Monitor and trend labs. * Continue to hold diuretics. * Suspect supradiuresed with concomitant medications of HCTZ, Lasix and Spironolactone. * US Renal pending * Treat associated UTI. * Hold renal offending agents unless absolutely necessary. (2) UTI (urinary tract infection): Code(s): N39.0 - Urinary tract infection, site not specified Status: Acute Assessment and Plan: 04/06/24: * Rocephin 1G Q24 hours * Culture pending. (3) Heart failure with reduced ejection fraction and diastolic dysfunction: Code(s): I50.40 - Unspecified combined systolic (congestive) and diastolic (congestive) heart failure Status: Chronic Assessment and Plan: 04/06/24: * Most recent ECHO from 2022. * ECHO ordered during this hospitalization * Hold diuretics at this time. (4) Type 2 diabetes mellitus: Code(s): E11.9 - Type 2 diabetes mellitus without complications Status: Chronic Assessment and Plan: 04/06/24: * Hypoglycemic protocol * Glucose checks AC and HS * Moderate dose SSI * Consider addition of Lantus if needed * Check A1C * Diabetic diet * Hold Rybelsus (5) Paroxysmal atrial fibrillation: Code(s): I48.0 - Paroxysmal atrial fibrillation Status: Chronic Assessment and Plan: 04/06/24: * Continue Warfarin as ordered. * Daily INR's * Monitor for any s/s of bleeding. (6) Chronic anticoagulation: Code(s): Z79.01 - long term care phlebotomist (current) use of anticoagulants Status: Chronic Assessment and Plan: * Daily INR's (7) Chronic obstructive pulmonary disease: Code(s): J44.9 - Chronic obstructive pulmonary disease, unspecified Status: Chronic Assessment and Plan: 04/06/24: * Monitor. * Pt not currently in exacerbation and is not requiring any supplemental oxygen. * Home medication does not include any inhaled medications appropriate for treatment. * Continue to monitor. Subjective Date/time seen: 04/07/24 07:54 Interval history: This very pleasant pt was examined in interval assessment since being admitted to the hospital for acute on chronic renal failure deemed most likely an JOSEFINA from multiple diuretics. Pt has hx of heart failure with reduced EF with last echo one year ago that showed mildly reduced LVSF at 40-45% and abnormal diastolic function as well. In addition to her Lasix and HCTZ, she states her doctor recently started her on Spironolactone as well by her Manager [employer] with the past couple of months. She states since starting it she has noted less UOP. She had routine labs yesterday and it was noted that she had a markedly increased renal function with creatinine of 3.12 over her baseline creatinine of 1.0-1.5. She was admitted here after transferring from [place] for further therapy and workup. Renal US was ordered, diuretics were held and pt receiving IVF as she does not appear to be in overload. Nephrology is consulted. Her repeat labs this AM show interval improvement with creatinine of 2.20. She denies any dyspnea, pain or acute complaints. Review of Systems Review of Systems: 12 systems were reviewed and are negativ e except
--- NOTE | 2024-04-07 07:54 | PM.IMPN ---
Progress Note: A&P Assessment and Plan (1) Acute on chronic kidney failure: Code(s): N17.9 - Acute kidney failure, unspecified; N18.9 - Chronic kidney disease, unspecified Status: Acute Assessment and Plan: 04/06/24: Interval improvement with creatinine trending 3.12-->2.80-->2.20. Awaiting nephrology consult Continue IVF at NS at 75 ml/hr. Monitor and trend labs. Continue to hold diuretics. Suspect supradiuresed with concomitant medications of HCTZ, Lasix and Spironolactone. US Renal pending Treat associated UTI. Hold renal offending agents unless absolutely necessary. (2) UTI (urinary tract infection): Code(s): N39.0 - Urinary tract infection, site not specified Status: Acute Assessment and Plan: 04/06/24: Rocephin 1G Q24 hours Culture pending. (3) Heart failure with reduced ejection fraction and diastolic dysfunction: Code(s): I50.40 - Unspecified combined systolic (congestive) and diastolic (congestive) heart failure Status: Chronic Assessment and Plan: 04/06/24: Most recent ECHO from 2022. ECHO ordered during this hospitalization Hold diuretics at this time. (4) Type 2 diabetes mellitus: Code(s): E11.9 - Type 2 diabetes mellitus without complications Status: Chronic Assessment and Plan: 04/06/24: Hypoglycemic protocol Glucose checks AC and HS Moderate dose SSI Consider addition of Lantus if needed Check A1C Diabetic diet Hold Rybelsus (5) Paroxysmal atrial fibrillation: Code(s): I48.0 - Paroxysmal atrial fibrillation Status: Chronic Assessment and Plan: 04/06/24: Continue Warfarin as ordered. Daily INR's Monitor for any s/s of bleeding. (6) Chronic anticoagulation: Code(s): Z79.01 - continuous churn buttermaker (current) use of anticoagulants Status: Chronic Assessment and Plan: Daily INR's (7) Chronic obstructive pulmonary disease: Code(s): J44.9 - Chronic obstructive pulmonary disease, unspecified Status: Chronic Assessment and Plan: 04/06/24: Monitor. Pt not currently in exacerbation and is not requiring any supplemental oxygen. Home medication does not include any inhaled medications appropriate for treatment. Continue to monitor. Subjective Date/time seen: 04/07/24 07:54 Interval history: This very pleasant pt was examined in interval assessment since being admitted to the hospital for acute on chronic renal failure deemed most likely an JOSEFINA from multiple diuretics. Pt has hx of heart failure with reduced EF with last echo one year ago that showed mildly reduced LVSF at 40-45% and abnormal diastolic function as well. In addition to her Lasix and HCTZ, she states her doctor recently started her on Spironolactone as well by her Junior Legal Secretary with the past couple of months. She states since starting it she has noted less UOP. She had routine labs yesterday and it was noted that she had a markedly increased renal function with creatinine of 3.12 over her baseline creatinine of 1.0-1.5. She was admitted here after transferring from [place] for further therapy and workup. Renal US was ordered, diuretics were held and pt receiving IVF as she does not appear to be in overload. Nephrology is consulted. Her repeat labs this AM show interval improvement with creatinine of 2.20. She denies any dyspnea, pain or acute complaints. Review of Systems Review of Systems: 12 systems were reviewed and are negative except for as per HPI. All systems reviewed & are unremarkable except as noted in HPI and below Exam Narrative: General: Nontoxic-appearing female sitting up in bed in no acute distress. HEENT: PERRL, EOMI. MMM with patent O/P. Neck: Supple. FROM of neck. Respiratory: CTAB in all nicole. Cardiovascular: Regular rate and rhythm with S1-S2. No S3, S4, m,r,g,h or displacement of PMI. No peripheral edema. Gastrointestinal: Abdomen is soft, obese, nontender, and n
[2024-04-07 08:23] LABS: Glucose Point of Care 110 mg/dl (65-105)
[2024-04-07 08:47] VITALS: PULSE 86
[2024-04-07] MEDS: METOPROLOL TARTRATE 25 MG TABLET 75 MG PO (08:47)
[2024-04-07] MEDS: amLODIPine BESYLATE 10 MG TABLET PO (08:47)
[2024-04-07] MEDS: ATORVASTATIN 40 MG TABLET PO (08:47)
[2024-04-07] MEDS: GABAPENTIN 300 MG CAPSULE PO ×3 (08:47→16:37)
[2024-04-07 11:41] LABS: Glucose Point of Care 145 mg/dl (65-105)
[2024-04-07 12:50] LABS: Prothrombin Time 23.3 Seconds (11.1-14.7)
--- NOTE | 2024-04-07 13:09 | P.PNNP_ITS ---
Progress Note: A&P Assessment and Plan (1) JOSEFINA (acute kidney injury): Code(s): N17.9 - Acute kidney failure, unspecified Status: Acute Assessment and Plan: * presumably due to infection (UTI) in conjunction with diuretic therapy along with XIOMARA-I * improvement noted with current therapy (IVFs, holding diuretics + XIOMARA-I, IV antibiotics...etc) * evaluation to date noted: * normal renal ultrasound * urine electrolytes prerenal * urine eosinophils negative * CPK mildy elevated - not enough to affect kidney function * UA suggestive of infection * follow trend of repeat labs and UOP (2) Chronic kidney disease, stage 3: Code(s): N18.30 - Chronic kidney disease, stage 3 unspecified Status: Chronic Assessment and Plan: * baseline creatinine seems to run ~ 1.0 - 1.5mg/dl in the last few years * likely secondary to diabetes, hypertension and CHF along with necessity of diuretic therapy (3) UTI (urinary tract infection): Code(s): N39.0 - Urinary tract infection, site not specified Status: Acute Assessment and Plan: * admission UA highly suggestive * follow urine culture * on antibiotics (4) Heart failure with reduced ejection fraction and diastolic dysfunction: Code(s): I50.40 - Unspecified combined systolic (congestive) and diastolic (congestive) heart failure Status: Chronic Assessment and Plan: * appears compensated at this time * diuretics on hold * follow respiratory status (5) Hypertension: Code(s): I10 - Essential (primary) hypertension Status: Chronic Assessment and Plan: * well controlled at this time * follow trend of hemodynamics (6) DM2 (diabetes mellitus, type 2): Qualifiers: Diabetes mellitus complication status: with circulatory complication Diabetes mellitus complication detail: with other circulatory complications Code(s): E11.9 - Type 2 diabetes mellitus without complications Status: Chronic Assessment and Plan: * follow accu-cheks * glycemic control per hospitalist Will continue to follow. Subjective Date/time seen: 04/07/24 13:09 Interval history: Follow-up for acute kidney injury/acute renal failure on chronic kidney disease. Ongoing improvement noted with regard to renal function/creatinine with current interventions/therapy to date; no apparent distress noted at the time of my visit; no issues/events overnight or earlier this morning Exam Narrative: General: elderly but WD/WN female in NAD Heart: normal S1 and S2; no rub Lungs: clear to auscultation Abdomen: soft, nontender, nondistended, positive bowel sounds Extremities: no cyanosis or clubbing; trace edema Skin: warm and dry Objective Data Vital Signs Vital Signs: Vital Signs Temp Pulse Resp BP Pulse Ox O2 Del Method 04/07/24 13:00 97.8 F 89 14 120/75 98 04/07/24 08:45 Room Air 04/07/24 08:47 86 04/07/24 05:48 97.9 F 100 16 114/75 97 04/06/24 20:00 Room Air 04/06/24 20:53 97.8 F 77 16 118/61 98 04/06/24 20:51 84 Intake/Output Intake/Output: Intake & Output 04/04/24 04/05/24 04/06/24 04/07/24 23:59 23:59 23:59 23:59 Intake Total 1380 1770 Quin
--- NOTE | 2024-04-07 13:09 | PM.PNNEP ---
Progress Note: A&P Assessment and Plan (1) JOSEFINA (acute kidney injury): Code(s): N17.9 - Acute kidney failure, unspecified Status: Acute Assessment and Plan: presumably due to infection (UTI) in conjunction with diuretic therapy along with XIOMARA-I improvement noted with current therapy (IVFs, holding diuretics + XIOAMRA-I, IV antibiotics...etc) evaluation to date noted: normal renal ultrasound urine electrolytes prerenal urine eosinophils negative CPK mildy elevated - not enough to affect kidney function UA suggestive of infection follow trend of repeat labs and UOP (2) Chronic kidney disease, stage 3: Code(s): N18.30 - Chronic kidney disease, stage 3 unspecified Status: Chronic Assessment and Plan: baseline creatinine seems to run ~ 1.0 - 1.5mg/dl in the last few years likely secondary to diabetes, hypertension and CHF along with necessity of diuretic therapy (3) UTI (urinary tract infection): Code(s): N39.0 - Urinary tract infection, site not specified Status: Acute Assessment and Plan: admission UA highly suggestive follow urine culture on antibiotics (4) Heart failure with reduced ejection fraction and diastolic dysfunction: Code(s): I50.40 - Unspecified combined systolic (congestive) and diastolic (congestive) heart failure Status: Chronic Assessment and Plan: appears compensated at this time diuretics on hold follow respiratory status (5) Hypertension: Code(s): I10 - Essential (primary) hypertension Status: Chronic Assessment and Plan: well controlled at this time follow trend of hemodynamics (6) DM2 (diabetes mellitus, type 2): Qualifiers: Diabetes mellitus complication status: with circulatory complication Diabetes mellitus complication detail: with other circulatory complications Code(s): E11.9 - Type 2 diabetes mellitus without complications Status: Chronic Assessment and Plan: follow accu-cheks glycemic control per hospitalist Will continue to follow. Subjective Date/time seen: 04/07/24 13:09 Interval history: Follow-up for acute kidney injury/acute renal failure on chronic kidney disease. Ongoing improvement noted with regard to renal function/creatinine with current interventions/therapy to date; no apparent distress noted at the time of my visit; no issues/events overnight or earlier this morning Exam Narrative: General: elderly but WD/WN female in NAD Heart: normal S1 and S2; no rub Lungs: clear to auscultation Abdomen: soft, nontender, nondistended, positive bowel sounds Extremities: no cyanosis or clubbing; trace edema Skin: warm and dry Objective Data Vital Signs Vital Signs: Vital Signs Temp Pulse Resp BP Pulse Ox O2 Del Method 04/07/24 13:00 97.8 F 89 14 120/75 98 04/07/24 08:45 Room Air 04/07/24 08:47 86 04/07/24 05:48 97.9 F 100 16 114/75 97 04/06/24 20:00 Room Air 04/06/24 20:53 97.8 F 77 16 118/61 98 04/06/24 20:51 84 Intake/Output Intake/Output: Intake & Output 04/04/24 04/05/24 04/06/24 04/07/24 23:59 23:59 23:59 23:59 Intake Total 1380 1770 Balance 1380 1770 Meds/Results Medications: Active Medications Generic Name Dose Route Start Last Admin Trade Name Freq PRN Reason Stop Dose Admin Acetaminophen 650 mg 04/05/24 21:44 Acetaminophen 325 Mg Tablet PO Q6H PRN Mild Pain (1-3) or Fever Amlodipine Besylate 10 mg 04/06/24 09:00 04/07/24 08:47 Amlodipine Besylate 10 Mg Tablet PO 10 mg DAILY MASTER Administration Atorvastatin Calcium 40 mg 04/06/24 09:00 04/07/24 08:47 Atorvastatin 40 Mg Tablet PO 40 mg DAILY MASTER Administration Dextrose 12.5 gm 04/05/24 21:44 Dextrose 50% 25 Gm/50 Ml Syringe IV PUSH PRN PRN Hypoglycemia Protocol Gabapentin 300 mg 04/05/24 21:55
[2024-04-07 14:00] VITALS: BP 120/75; PULSE 89; RESP 14; TEMP 36.6; O2SAT 98
[2024-04-07] MEDS: WARFARIN (*PBKC) 1 MG TABLET PO (16:37)
[2024-04-07] MEDS: WARFARIN (*PBKC) 3 MG TABLET 6 MG PO (16:37)
--- NOTE | 2024-04-24 05:57 | PM.DS ---
DS: Admitting Diagnosis Discharge Date 04/07/24 Admitting Diagnosis JOSEFINA DS: Discharge Diagnosis Discharge Diagnosis (1) JOSEFINA (acute kidney injury): Code(s): N17.9 - Acute kidney failure, unspecified Status: Acute (2) UTI (urinary tract infection): Code(s): N39.0 - Urinary tract infection, site not specified Status: Acute DS: Summary Hospital Course Reason for hospitalization: Elevated creatinine, JOSEFINA Hospital Course: Columba Voss presented to the ED in [place] 04/05 for evaluation of abnormal lab, transferred to [place] for further workup.? Creatinine elevated to 3.12. Held diuretics during admission, hydrated with IV fluids. Nephrology was consulted.? 04/06 Renal ultrasound showed normal kidneys, no hydronephrosis.? Hx CKDIII, baseline creatinine 1-1.5.? Creatinine improved to 1.6 04/07 on day of discharge. Also treated UTI with ceftriaxone, 04/02 culture grew ecoli. Culture 04/05? grew mixed genital floral. Had poor PO intake, so held Rysbelus until follow up. Dose reduced allopurinol. Held lisinopril/hctz and spironolactone until follow up. Changed lasix to BID prn for swelling. Follow up labs in a week. Status at Discharge Cognitive/behavioral status at discharge: Alert & oriented x3 Time Spent with Patient Time attestation: Total time spent providing and/or coordinating discharge services: Exam Narrative: General: Nontoxic-appearing female sitting up in bed in no acute distress. HEENT: PERRL, EOMI. MMM with patent O/P. Neck: Supple. FROM of neck. Respiratory: CTAB in all nicole. Cardiovascular: Regular rate and rhythm with S1-S2. No S3, S4, m,r,g,h or displacement of PMI. No peripheral edema. Gastrointestinal: Abdomen is soft, obese, nontender, and nondistended with positive bowel sounds. Skin: Warm and dry. No rash or lesions on limited exam. Extremities: No cyanosis or clubbing. Stocky appearing legs without any edema or pitting noted. Neurological: Non-focal, grossly intact. Psychiatric: Cooperative with appropriate mood and affect. Discharge Plan Discharge Attending physician on discharge: Brittany Acuña Consulting providers: Dixon Tapia; Gena Snell; Shaggy Jimenez; Kenneth Ahmadi V. Discharging Clinician: Brittany Acuña Anticipated Discharge Date/Time: 04/07/24 14:54 Patient Disposition: Home, Self-Care Activity: may shower Diet: regular Discharge Instructions: Restart furosemide (lasix twice a day as needed for shortness of breath or swelling) starting tomorrow. Monitor your weight. If you gain more than 2-3 pounds in a day or 5-7 pounds in a week, that may be water weight--watch for symptoms. You should repeat blood work in 1 week, and follow up with your PCP in 1-2 weeks. Patient Instructions: Antibiotic Form, Warfarin (By mouth) Stand Alone Forms: General Discharge Information Follow-up/Referrals: Júnior Leung, [Primary Care Provider] - Discharge Medications: Continued (DME) blood-glucose meter Kit See Rx Instructions .Route Qty: 1 0RF Rx Instructions: As directed cholecalciferol (vitamin D3) 1,250 mcg (50,000 unit) capsule 1,250 mcg PO WEEKLY Qty: 12 0RF Rx Instructions: every Thursday atorvastatin 40 mg tablet 40 mg PO DAILY gabapentin 300 mg capsule 300 mg PO TID warfarin 1 mg tablet 1 mg PO DAILY Rx Instructions: take total dose of 7 mg (DME) blood-glucose meter Kit See Rx Instructions .Route Qty: 1 0RF Rx Instructions: As directed warfarin 3 mg tablet 6 mg PO DAILY Qty: 180 1RF Rx Instructions: total dose of 7 mg amlodipine 10 mg tablet 10 mg PO DAILY Qty: 90 3RF metoprolol tartrate 75 mg tablet 75 mg PO BID Qty: 180 2RF Changed furosemide [Lasix] 40 mg tablet 40 mg PO BID PRN (Reason: Swelling or Shortness of breath) Qty: 90 2RF allopurinol 200 mg tablet 100 mg PO DAILY Qty: 90 0RF Discontinued
== END 2024-04-07 17:10 | disposition home or self-care (01) ==
PROVIDERS: Internal Medicine Nephrology; Nurse Practitioner Adult Health; Physician Assistant; Admitting Provider Internal Medicine; PCP Family Medicine; Visit Provider Nurse Practitioner Acute Care
DX: N17.9 Acute kidney failure, unspecified (principal); N39.0 Urinary tract infection, site not specified; I13.0 Hypertensive heart and chronic kidney disease with heart failure and stage 1 through stage 4 chronic kidney disease, or unspecified chronic kidney disease; I50.40 Unspecified combined systolic (congestive) and diastolic (congestive) heart failure; E11.22 Type 2 diabetes mellitus with diabetic chronic kidney disease; N18.30 Chronic kidney disease, stage 3 unspecified; I48.0 Paroxysmal atrial fibrillation; E78.5 Hyperlipidemia, unspecified; J44.9 Chronic obstructive pulmonary disease, unspecified; M10.9 Gout, unspecified; Z79.01 Long term (current) use of anticoagulants; Z79.84 Long term (current) use of oral hypoglycemic drugs
CPT/HCPCS: 36415; 76775; 80048; 80053; 81050; 82550; 82570; 82948; 83036; 83735; 84133; 84156; 84300; 84540; 85025; 85027; 85610; 85999; 93306; 96361; 96365; 96376; A9270; G0378; G0379; J0696; J7030

== ENCOUNTER 2024-04-14 09:00 | Outpatient (CLI) | payer OTHER, SELFPAY ==
[2024-04-14 09:23] LABS: Anion Gap 9 mmol/L (4-12); Blood Urea Nitrogen 32 mg/dL (7-18); Calcium 9.1 mg/dL (8.5-10.1); Carbon Dioxide 28 mmol/L (21-32); Chloride 103 mmol/L (98-108); Estimated Glomerular Filt Rate 42; Glucose 163 mg/dL (70-99); Magnesium 2.1 mg/dL (1.8-2.4); Osmolality Calculated 300 mOsm/kg (285-295); Potassium 3.8 mmol/L (3.5-5.1); Sodium 140 mmol/L (136-145)
== END 2024-04-14 09:01 | disposition home or self-care (01) ==
LOC: CHSLAB 09:03
PROVIDERS: PCP Family Medicine; Visit Provider Nurse Practitioner Acute Care
DX: R79.0 Abnormal level of blood mineral (principal); N17.9 Acute kidney failure, unspecified
CPT/HCPCS: 36415; 80048; 83735

== ENCOUNTER 2024-07-18 09:32 | Outpatient (RCR) | payer OTHER, SELFPAY ==
[2024-04-26 10:13] LABS: INR 2.1; Prothrombin Time 22.2 Seconds (9.50-12.1)
[2024-06-14 09:46] LABS: INR 2.4
[2024-07-18 10:00] LABS: Prothrombin Time 29.5 Seconds (9.50-12.1)
== END 2024-07-25 23:59 | disposition home or self-care (01) ==
LOC: CHSLAB 09:32
PROVIDERS: PCP Family Medicine; Visit Provider Family Medicine
DX: Z51.81 Encounter for therapeutic drug level monitoring (principal); Z79.01 Long term (current) use of anticoagulants
CPT/HCPCS: 36415; 85610

== ENCOUNTER 2024-08-16 10:05 | Outpatient (RCR) | payer OTHER, SELFPAY ==
[2024-08-16 11:43] LABS: INR 2.4; Prothrombin Time 24.5 Seconds (9.50-12.1)
== END 2024-11-14 23:59 | disposition home or self-care (01) ==
LOC: CHSLAB 10:05
PROVIDERS: PCP Family Medicine; Visit Provider Family Medicine
DX: Z51.81 Encounter for therapeutic drug level monitoring (principal); Z79.01 Long term (current) use of anticoagulants; I48.0 Paroxysmal atrial fibrillation
CPT/HCPCS: 36415; 85610

== ENCOUNTER 2024-08-30 11:40 | Outpatient (CLI) | payer OTHER, SELFPAY ==
[2024-08-30 11:59] LABS: Basophils Absolute Auto 0.08 K/mm3 (0.00-0.10); Basophils Percent Auto 1.4 % (0.0-1.0); Eosinophils Absolute Auto 0.05 K/mm3 (0.02-0.50); Eosinophils Percent Auto 0.9 % (1.0-6.0); Hematocrit 43.1 % (35.0-42.0); Hemoglobin 14.8 g/dL (11.7-13.8); Immature Granulocyte Absolute 0.04 K/mm3 (0.00-0.00); Immature Granulocyte Percent A 0.7 % (0.0-0.0); Lymphocytes Percent Auto 19.6 % (18.0-42.0); Mean Corpuscular HGB Conc 34.3 g/dL (32-36); Mean Corpuscular Hemoglobin 29.7 pg (27.0-31.0); Mean Corpuscular Volume 86.4 fL (78.0-102.0); Mean Platelet Volume 11.1 fl (9.2-11.8); Monocytes Absolute Auto 0.42 K/mm3 (0.10-0.90); Monocytes Percent Auto 7.5 % (2.0-11.0); Neutrophils Absolute Auto 3.91 K/mm3 (1.70-7.20); Neutrophils Percent Auto 69.9 % (50.0-70.0); Platelet Count Result 279 K/mm3 (150-420); Red Blood Count 4.99 M/mm3 (4.20-5.40); Red Cell Distribution Width 13.4 % (11.6-14.4); White Blood Count 5.6 K/mm3 (4.8-10.8)
[2024-08-30 12:31] LABS: Alanine Aminotransferase 52 U/L (14-59); Alkaline Phosphatase 91 U/L (46-116); Anion Gap 11 mmol/L (4-12); Aspartate Amino Transferase 36 U/L (15-37); Bilirubin,Total 1.2 mg/dL (0.00-1.00); Blood Urea Nitrogen 15 mg/dL (7-18); Calcium 8.7 mg/dL (8.5-10.1); Carbon Dioxide 31 mmol/L (21-32); Chloride 98 mmol/L (98-108); Cholesterol 164 mg/dL (0-200); Estimated Glomerular Filt Rate 37; HDL Direct 50 mg/dL (40-60); LDL Cholesterol Calculated 68 mg/dL (<130); Osmolality Calculated 307 mOsm/kg (285-295); Potassium 3.6 mmol/L (3.5-5.1); Sodium 140 mmol/L (136-145); Total Protein 7.4 g/dL (6.4-8.2); Triglycerides 228 mg/dL (0-150)
[2024-08-30 12:33] LABS: Glucose 404 mg/dL (70-99)
[2024-08-30 12:37] LABS: Thyroid Stimulating Hormone Reflex 2.22 u/IU/mL (0.36-3.74)
[2024-08-30 12:54] LABS: Hemoglobin A1C 9.1 % (<5.7)
--- OUTSIDE RECORDS SUMMARY | 2024-08-30 12:54 | XMS_ITS | Clinical Summary ---
Author Organization [facility] Address [address] [place] [address] Care Team Providers Care Ball Thread Machine Tender Name Role Phone Scottnick Júnior DURON Primary Care Provider [phone] Eun Hu MD Unavailable [phone] Allergies No known active allergies Medications amlodipine 10 MG tablet Take 10 mg by mouth daily. 05/25/20 14 Active lisinopril 20 MG TABS 20 mg, hydrochlorothiazide 25 MG TABS 25 mg Take 1 tablet by mouth daily. 05/25/20 14 Active atorvastatin 40 MG tablet Take 40 mg by mouth daily. 04/08/20 18 Active metFORMIN 500 MG tablet Take 500 mg by mouth 2 (two) times daily. 04/02/20 18 Active metoprolol tartrate 25 MG tablet Take 1 tablet (25 mg total) by mouth 2 (two) times daily. 60 tablet 11 07/11/20 20 Active albuterol sulfate HFA 108 (90 Base) MCG/ACT inhaler Inhale 2 puffs into the lungs every 4 (four) hours as needed. 03/22/20 21 Active TRUE METRIX BLOOD GLUCOSE TEST test strip 07/21 03/08 22 Active RYBELSUS 7 MG Tab 08/12/19 22 Active warfarin 3 MG tablet Take 1 tablet (3 mg total) by mouth daily. Take 3 tablets 30 tablet 10/30/19 22 Active Active Problems Problem Noted Date Diagnosed Date Atrial fibrillation ([facility]) 08/08/2020 Morbid obesity ([facility]) 08/08/2020 Hypertension Edema Shortness of breath Family History Medical History Relation Comments Cancer Brother 1 Carbon Monoxide poisoning Brother 2 Heart Attack Father Hypertension Mother Relation Status Comments Brother 1 (Age 62) lung cancer Brother 2 (Age early 20s) Father (Age late 70s) Mother (Age 70s) from an[place] ng old Social History Tobacco Use Types Packs/Day Years Used Date Smoking Tobacco: Never Smokeless Tobacco: Never Alcohol Use Standard Drinks/Week Comments No 0 (1 standard drink = 0.6 oz pur e alcohol) Comments Unknown Sex and Gender Information Value Date Recorded Sex Assigned at Not on file Legal Sex Female 6:12 PM CDT Gender Identity Female 08/05/2021 11:22 AM KINDERGARTEN INSTRUCTIONAL ASSISTANT Sexual Orientation Straight 08/05/2021 11 :22 AM KINDERGARTEN INSTRUCTIONAL ASSISTANT Occupation Industry Job Start Date Job End Date retired Not on file Not on file Not on file Last Filed Vital Signs Vital Sign Reading Time Taken Comments Blood Pressure 141/88 10/02/2021 9:52 AM CDT Pulse 73 10/02/2021 9:51 AM CDT Temperature 36.5 C (97.7 F) 08/10/2021 7:52 AM KINDERGARTEN INSTRUCTIONAL ASSISTANT Respiratory Rate 20 10/02/2021 9:51 AM CDT Oxygen Saturation 99% 10/02/2021 9:51 AM CDT Inhaled Oxygen Concentration - - Weight 128.7 kg (283 lb 12.8 oz) 10/02/2021 9:51 AM CDT Height 160 cm (5' 3 ) 10/02/2021 9:51 AM CDT Body Mass Index 50.27 10/02/2021 9:51 AM CDT Plan of Treatment Health Maintenance Due Date Last Done Comments Colorectal Cancer Screening Colonoscopy (10 Years) 1953 Hepatitis C 09/18/1971 DTaP, Tdap and Td Vaccines ( 1 - Tdap) 1972 Mammogram Screening 1993 Zoster Vaccines (1 of 2) 09/18/2003 RSV Immunization or 60+ Years (1 - Risk 60-74 years 1-dose series) 2013 Annual Medicare Wellness Visit 2018 Dexa Scan (General) 2018 Pneumococcal Vaccine: 65+ Years (2 of 2 - PPSV23 or PCV20) 12/25/2020 12/26/2019, 07/05/2019 COVID-19 Vaccine (2023-2 5 season) 2024 12/15/2020, 11/17/2020 Influenza Adult (#1) 2024 Meningococcal B Vaccine Aged Out No l onger eligible based on patient's age to complete this topic Meningococcal Vaccine Aged Out No rjaiv leo eligible based on patient's age to complete this topic RSV Immunizations Under 20 Months Aged Out No longer eligible b ased on patient's age to complete this topic Insurance MEDICAID AETNA Advance Directives * Full Code (Latest Code Status on File) Date Activated Date Inactivated Comments 08/08/2021 12:28 PM 08/10/2021 1:35 PM Care Teams Ball Thread Machine Tender Relationship Specialty Start Date End Date Júnior Leung DO [address] [place] [address] PCP - General FAMILY PRACTICE 07/11/20 Eun Hu MD [address] [place] [address] INTERVENTIONAL CARDIOLOGY 07/11/20
--- OUTSIDE RECORDS SUMMARY | 2024-08-30 12:54 | XMS_ITS | Encounter Summary ---
Author Organization [facility] Address [address] [place] [address] Care Team Providers Care Raw Juice Weigher Name Role Phone Ricci Marshall MD Unavailable Unavailab Júnior Huynh DO Primary Care Provider [phone] Eun Hu MD Unavailable [phone] Encounter Details Date Type Department Care Team (Late st Contact Info) Description 02/13/2016 [facility] [address] [place] [address] Ricci Marshall MD Social History Tobacco Use Types Packs/Day Years Used Date Smoking Tobacco: Never Alcohol Use Standard Drinks/Week Comments No 0 (1 standard drink = 0.6 oz pur e alcohol) Comments Unknown Sex and Gender Information Value Date Recorded Sex Assigned at Not on file Legal Sex Female 6:12 PM CDT Gender Identity Female 08/05/2021 11:22 AM VP SALES Sexual Orientation Straight 08/05/2021 11 :22 AM VP SALES Occupation Industry Job Start Date Job End Date retired Not on file Not on file Not on file documented as of this encounter Plan of Treatment Not on file documented as of this encounter Visit Diagnoses Not on filedocumented in this encounter Additional Health Concerns Infection Onset Date Last Indicated Resolved Time COVID-19 Rule Out 08/06/2021 08/06/2021 08/06/2021 2:29 PM VP SALES documented as of this encounter Care Teams Raw Juice Weigher Relationship Specialty Start Date End Date Júnior Leung DO [address] [place] [address] PCP - General FAMILY PRACTICE 07/11/20 Ricci Marshall MD CARDIOVASCULAR DISEASE 02/13/16 07/10/20 Eun Hu MD [address] [place] [id number] INTERVENTIONAL CARDIOLOGY 07/11/20 documented as of this encounter
--- OUTSIDE RECORDS SUMMARY | 2024-08-30 12:55 | XMS_ITS ---
Author Organization Unknown Address [address] [place] [phone] Phone Care Team Providers Care Dial Printer Name Role Phone JADEN CLYDE Attending Unavailable [facility] Primary Unavailable Immunization Immunization Date Status Additional Notes Code Code System pneumococcal polysaccharide PPV23 06/17/2021 Completed 33 CVX Pneumococcal conjugate PCV 13 07/05/2019 Completed 133 CVX Pneumococcal conjugate PCV 13 12/26/2019 Completed 133 CVX Influenza, high-dose, quadrivalent, PF 06/17/2022 Completed 197 CVX Influenza, adjuvanted, quadrivalent, PF 06/17/2021 Completed 205 CVX Influenza, adjuvanted, quadrivalent, PF 05/06/2023 Completed 205 CVX COVID-19, mRNA, LNP-S, PF, 1 00 mcg/0.5mL dose or 50 mcg/0.25mL dose 11/17/2020 Completed 207 CVX COVID-19, mRNA, LNP-S, PF, 1 00 mcg/0.5mL dose or 50 mcg/0.25mL dose 12/15/2020 Completed 207 CVX COVID-19, mRNA, LNP-S, PF, 1 00 mcg/0.5mL dose or 50 mcg/0.25mL dose 07/26/2021 Completed 207 CVX Social History Type Status Start Date End Date Code Code Syst em Smoking History Unknown if ever smoked [id number] Sex Female Hospital Discharge Instructions Should you have any questions prior to discharge, please contact a member of your healthcare team. If you have left the hospital and have any questions, please contact your primary care physician. Reason For Referral No Data Found Plan of Treatment US Echo With Color (69899) 04/21/2024 NM Spect Perf Rest Stress Multi (30478) 06/02/2024 Stress Test Chemical 06/02/2024 NM Spect Perf Rest Stress Multi (38834) 06/02/2024 Stress Test Chemical 06/02/2024 Encounters Encounter Diagnosis Start Date Code Code Sys tem Unspecified systolic (congestive) heart failure 2023 SNOMED-CT Personal Care Team Section Performer Name Performer Role Active Date Inactive EDDIE Harry PCP - Primary care physician 2024-04-2 2
--- OUTSIDE RECORDS SUMMARY | 2024-08-30 12:55 | XMS_ITS | Encounter Summary ---
Author Organization [facility] Address [address] [place] [address] Care Team Providers Care Escalator Mechanic Name Role Phone ScottnickJúnior DO Primary Care Provider [phone] Eun Hu MD Unavailable [phone] Encounter Details Date Type Department Care Team (Late st Contact Info) Description 10/29/2021 Abstract [facility] [address] Sara Stewart, [facility] [address] [place] [address] Social History Tobacco Use Types Packs/Day Years Used Date Smoking Tobacco: Never Smokeless Tobacco: Never Alcohol Use Standard Drinks/Week Comments No 0 (1 standard drink = 0.6 oz pur e alcohol) Comments Unknown Sex and Gender Information Value Date Recorded Sex Assigned at Not on file Legal Sex Female 6:12 PM CDT Gender Identity Female 08/05/2021 11:22 AM MANAGER CRITICAL CARE UNIT Sexual Orientation Straight 08/05/2021 11 :22 AM MANAGER CRITICAL CARE UNIT Occupation Industry Job Start Date Job End Date retired Not on file Not on file Not on file COVID-19 Exposure Response Date Recorded In the last 10 days, have yo u been in contact with someone who was confirmed or suspected to have Coronavirus/COVID-19? No / Unsure 10/02/2021 9:37 AM CDT documented as of this encounter Functional Status * RETIRED Are you deaf or do you have serious difficulty hearing Answer Date of Assessment Author Status No 08/08/2021 1:49 PM MANAGER CRITICAL CARE UNIT Activ e * RETIRED Are you blind or do you have serious difficulty seeing, even when wearing glasses? Answer Date of Assessment Author Status No 08/08/2021 1:49 PM MANAGER CRITICAL CARE UNIT Activ e * Do you have serious difficulty walking or climbing stairs? Answer Date of Assessment Author Status No 08/08/2021 1:49 PM MANAGER CRITICAL CARE UNIT Mackenzie Mendez R N Active * Do you have difficulty dressing or bathing? Answer Date of Assessment Author Status No 08/08/2021 1:49 PM MANAGER CRITICAL CARE UNIT Mackenzie Mendez R N Active * Because of a physical, mental, or emotional condition, do you have difficulty doing errands alone such as visiting a doctor's office or shopping? Answer Date of Assessment Author Status No 08/08/2021 1:49 PM MANAGER CRITICAL CARE UNIT Mackenzie Mendez R N Active documented as of this encounter Mental Status * Because of a physical, mental, or emotional condition, do you have serious difficulty concentrating, remembering, or making decisions? Answer Entry Date Author Status No 08/08/2021 1:49 PM MANAGER CRITICAL CARE UNIT Mackenzie Mendez R N Active documented in this encounter Plan of Treatment Not on file documented as of this encounter Procedures Procedure Name Priority Date/Time Associated Diagnosis Comments PROTHROMBIN TIME, VENOUS Routine 10/25/2021 Paroxysmal atrial fibrillation ([facility]) documented in this encounter Results * PROTHROMBIN TIME, VENOUS (10/25/2021) PROTIME WHOLE BLOOD 31.9 INR WHOLE BLOOD 3.20 10/25/2021 Sara Stewart [facility] Final Res ult documented in this encounter Visit Diagnoses Diagnosis Paroxysmal atrial fibrillation ([facility] HHS/HCC) Atrial fibrillation documented in this encounter Care Teams Escalator Mechanic Relationship Specialty Start Date End Date Júnior Leung DO [address] [place] [address] PCP - General FAMILY PRACTICE 07/11/20 Eun Hu MD [address] [place] [address] INTERVENTIONAL CARDIOLOGY 07/11/20 documented as of this encounter
--- OUTSIDE RECORDS SUMMARY | 2024-08-30 12:55 | XMS_ITS ---
Author Organization Unknown Address [address] [place] [phone] Phone Care Team Providers Care Negative Developer Name Role Phone JADEN CLYDE Attending Unavailable [facility] Primary Unavailable Immunization Immunization Date Status Additional [...] Smoking History Unknown if ever smoked [id number] Sex Female Hospital Discharge Instructions Should you have any questions prior to discharge, please contact a member of your healthcare team. If you have left the hospital and have any questions, please contact your primary care physician. Reason For Referral No Data Found Plan of Treatment US Echo With Color (48203) 04/21/2024 NM Spect Perf Rest Stress Multi (56332) 06/02/2024 Stress Test Chemical 06/02/2024 NM Spect Perf Rest Stress Multi (06154) 06/02/2024 Stress Test Chemical 06/02/2024 Encounters Encounter Diagnosis Start Date Code Code Sys tem Heart failure, unspecified 06/02/2024 S NOMED-CT Personal Care Team Section Performer Name Performer Role Active Date Inactive EDDIE Harry PCP - Primary care physician 2024-04-20 2
--- OUTSIDE RECORDS SUMMARY | 2024-08-30 12:56 | XMS_ITS | Encounter Summary ---
Author Organization [facility] Address [facility] [place] [address] Care Team Providers Care Medical Supervisor Name Role Phone Scottnick Júnior DURON Primary Care Provider [phone] Eun Hu MD Unavailable [phone] Encounter Details Date Type Department Care Team (Late st Contact Info) Description 08/07/2021 Hospital Orders Only [facility] [address] [place] [address] Gay Guevara Anesthesia Record Procedure Summary Procedure Name Responsible Anesthesiologist Anesthesia Start Time Anesthesia Stop Time XA A-FIB ABLATION Anival Reynoso MD 08/08/21 09 27 08/08/21 1143 Events Date Time Event Comment 08/08/2021 0843 0843 AN Anesthesia Prepped 0927 An Start Patient ID and consent checked and patient reassessed. 0927 An Start Data 0934 Preoxygenation 0934 An Induction The patient was reevaluated immediately before moderate or deep sedation use and before anesthesia induction. 0941 An Intubation 0953 Anesthesia Ready 1033 Quick Note Act 422 1048 Quick Note Aware of hypote nsion states no effusion pacing patient now 1105 AN Cardioversion 1110 Quick Note Act 369 1134 An Extubation 1138 an stop data 1141 Post Anesthetic Care Handoff I completed my handoff to the receiving nurse during which we: 1. Identified the patient 2. Identified the responsible provider 3. Reviewed the pertinent medical history 4. Discussed the surgical course 5. Reviewed intra-op anesthesia management and issues during anesthesia 6. Set expectations for post-procedure period 7. Allowed opportunity for questions and acknowledgement of understanding. 1143 An Stop Meds * Agents No agents on file. * Blood No blood administrations on file. Lines, Drains, and Airways Type Details Placement Removal Peripheral IV Placement Date: 07/21 ; Placement Time: 0746; Placed Outside of This Facility?: No; Orientation: Right; Location: Antecubital; Site Prep: Chlorhexidine; Local Anesthetic: None; Inserted By: RADHA JOYNER; Insertion attempts: 1; Ultrasound-guided Placement?: No; Patient Tolerance: Tolerated well; Removal Date: 08/10/21; Removal Time: 1021; Removal Reason: Patient Discharged 08/08/21 0746 by Jennyfer Taylor RN 08/10/21 1021 by Juani Antonio Rai, RN ETT Placement Date: 07/21 ; Placement Time: 0941; Placed Outside of This Facility?:No; Mask Ventilate: Prior to intubation; Size (mm) : 7; Endotracheal: Oral; Blade Type: MAC 3; Placement Method: Direct Laryngoscopy (blade type in comment); View Grade: 1; Viewable Anatomy: Epiglottis, Arytenoid; Insertion Attempts: 1; Placement Verified By: Capnography, Auscultation, Chest Rise; Placed By: FAHAD; Removal Date: 08/08/21; Removal Time: 1134 08/08/21 0941 by Evette Delgado CRNA 08/08/21 1134 by Evette Delgado CRNA Peripheral IV Placement Date: 07/21 ; Placement Time: 0948; Placed Outside of This Facility?: No; Size: 18 G; Orientation: Left; Location: Antecubital; Site Prep: Alcohol; Local Anesthetic: None; Inserted By: cristine; Insertion attempts: 1; Ultrasound-guided Placement?: No; Patient Tolerance: Tolerated well; Removal Date: 08/08/21; Removal Time: 1840; Removal Reason: Leaking 08/08/21 0948 by Evette Delgado CRNA 08/08/21 1840 by Mackenzie Mendez RN Arterial Line Placement Date: 07/21 ; Placement Time: 0951 (created via procedure documentation); Placed Outside of This Facility?: No; Size: 20; Orientation: Right; Location: Radial; Site Prep: Chlorhexidine; Local Anesthetic: None; Insertion Attempts: 2; Patient Tolerance: Tolerated well; Removal Date: 08/08/21; Removal Time: 1255; Removal Reason: Therapy Completed 08/08/21 0951 by Les Bazan MD 08/08/21 1255 by Cristine Del Toro RN documented in this encounter Social History Tobacco Use Types Packs/Day Years Used Date Smoking Tobacco: Never Smokeless Tobacco: Never Alcohol Use Standard Drinks/Week Comments No 0 (1 standard drink = 0.6 oz pur e alcohol) Comments Unknown Sex and Gender Information Value Date Recorded Sex Assigned at Not on file Legal Sex Female 6:12 PM CDT Gender Identity Female 08/05/2021 11:22 AM COLLARETTE SEPARATOR Sexual Orientation Straight 08/05/2021 11 :22 AM COLLARETTE SEPARATOR Occupation Industry Job Start Date Job End Date retired Not on file Not on file Not on file COVID-19 Exposure Response Date Recorded In the last month, have you been in contact with someone who was confirmed or suspected to have Coronavirus / COVID-19? No / Unsure 08/08/2021 7:06 AM COLLARETTE SEPARATOR documented as of this encounter Functional Status documented as of this encounter Mental Status * Question Answer Entry Date Author Status Because of a physical, mental, or emotional condition, do you have serious difficulty concentrating, remembering, or making decisions? No 08/08/2021 1:49 PM COLLARETTE SEPARATOR Mackenzie Mendez RN Active documented in this encounter Plan of Treatment Not on file documented as of this encounter Visit Diagnoses Not on filedocumented in this encounter Care Teams Medical Supervisor Relationship Specialty Start Date End Date Júnior Leung DO [address] [place] [address] PCP - General FAMILY PRACTICE 07/11/20 Eun Hu MD [address] [place] [address] INTERVENTIONAL CARDIOLOGY 07/11/20 documented as of this encounter
--- OUTSIDE RECORDS SUMMARY | 2024-08-30 12:56 | XMS_ITS | Encounter Summary ---
Author Organization [facility] Address [address] [place] [address] Care Team Providers Care Reduction Plant Supervisor Name Role Phone Júnior Leung Primary Care Provider [phone] Eun Hu MD Unavailable [phone] Encounter Details Date Type Department Care Team (Late st Contact Info) Description 01/08/2021 Prep for Procedure [facility] [address] [place] [address] Eun Hu MD [address] [place] [address] Social History Tobacco Use Types Packs/Day Years Used Date Smoking Tobacco: Never Smokeless Tobacco: Never Alcohol Use Standard Drinks/Week Comments No 0 (1 standard drink = 0.6 oz pur e alcohol) Comments Unknown Sex and Gender Information Value Date Recorded Sex Assigned at Not on file Legal Sex Female 6:12 PM CDT Gender Identity Female 08/05/2021 11:22 AM SAFETY SCIENTIST Sexual Orientation Straight 08/05/2021 11 :22 AM SAFETY SCIENTIST Occupation Industry Job Start Date Job End Date retired Not on file Not on file Not on file COVID-19 Exposure Response Date Recorded In the last month, have you been in contact with someone who was confirmed or suspected to have Coronavirus / COVID-19? Yes 01/07/2021 10:13 AM CDT documented as of this encounter Plan of Treatment Not on file documented as of this encounter Visit Diagnoses Not on filedocumented in this encounter Additional Health Concerns Infection Onset Date Last Indicated Resolved Time COVID-19 Rule Out 08/06/2021 08/06/2021 08/06/2021 2:29 PM SAFETY SCIENTIST documented as of this encounter Care Teams Reduction Plant Supervisor Relationship Specialty Start Date End Date Júnior Leung DO [address] [place] [address] PCP - General FAMILY PRACTICE 07/11/20 Eun Hu MD [address] [place] [id number] INTERVENTIONAL CARDIOLOGY 07/11/20 documented as of this encounter
--- OUTSIDE RECORDS SUMMARY | 2024-08-30 12:56 | XMS_ITS | Encounter Summary ---
Author Organization [facility] Address [facility] [place] [address] Care Team Providers Care Keyboard Specialist Name Role Phone Scottnick Júnior DURON Primary Care Provider [phone] Eun Hu MD Unavailable [phone] Encounter Details Date Type Department Care Team (Late st Contact Info) Description 01/10/2021 Hospital Orders Only [facility] Anesthesia [address] [place] [address] Gay Guevara Anesthesia Record Procedure Summary Procedure Name Responsible Anesthesiologist Anesthesia Start Time Anesthesia Stop Time XA CARDIOVERSION DCC Les Bazan MD 01/14/21 0901 0 01/14/21 0922 Events Date Time Event Comment 01/14/2021 0807 0807 AN Anesthesia Prepped 0901 An Start Patient ID and consent checked and patient reassessed. 0901 An Start Data 0903 Face Mask Applied 0905 An Induction The patient was reevaluated immediately before moderate or deep sedation use and before anesthesia induction. 0905 Anesthesia Ready 0915 an stop data 0922 An Stop 0922 Post Anesthetic Care Handoff I completed my handoff to the receiving nurse during which we: 1. Identified the patient 2. Identified the responsible provider 3. Reviewed the pertinent medical history 4. Discussed the surgical course 5. Reviewed intra-op anesthesia management and issues during anesthesia 6. Set expectations for post-procedure period 7. Allowed opportunity for questions and acknowledgement of understanding. Meds * Agents No agents on file. * Blood No blood administrations on file. Lines, Drains, and Airways Type Details Placement Removal Peripheral IV Placement Date: 12/19 03/09; Placement Time: 0820; Placed Outside of This Facility?: No; Size: 18 G; Orientation: Left; Location: Antecubital; Site Prep: Chlorhexidine; Local Anesthetic: None; Insertion attempts: 1; Ultrasound-guided Placement?: No; Patient Tolerance: Tolerated well; Removal Date: 01/14/21; Removal Time: 1009 01/14/21 0820 by Jennyfer Taylor RN 01/14/21 1009 by Fani Irvin RN documented in this encounter Social History Tobacco Use Types Packs/Day Years Used Date Smoking Tobacco: Never Smokeless Tobacco: Never Alcohol Use Standard Drinks/Week Comments No 0 (1 standard drink = 0.6 oz pur e alcohol) Comments Unknown Sex and Gender Information Value Date Recorded Sex Assigned at Not on file Legal Sex Female 6:12 PM CDT Gender Identity Female 08/05/2021 11:22 AM LABOR CREW SUPERVISOR Sexual Orientation Straight 08/05/2021 11 :22 AM LABOR CREW SUPERVISOR Occupation Industry Job Start Date Job End [...] Rule Out 08/06/2021 08/06/2021 08/06/2021 2:29 PM LABOR CREW SUPERVISOR documented as of this encounter Care Teams Keyboard Specialist Relationship Specialty Start Date End Date Júnior Leung DO [address] [place] [id number] PCP - General FAMILY PRACTICE 07/11/20 Eun Hu MD [address] [place] [id number] INTERVENTIONAL CARDIOLOGY 07/11/20 documented as of this encounter
--- OUTSIDE RECORDS SUMMARY | 2024-08-30 12:56 | XMS_ITS ---
Author Organization Unknown Address [address] [place] [phone] Phone Care Team Providers Care Indirect Sales Representative Name Role Phone JADEN CLYDE Attending Unavailable [facility] Primary Unavailable Immunization Immunization Date Status Additional [...] Smoking History Unknown if ever smoked [id number] Sex Female Hospital Discharge Instructions Should you have any questions prior to discharge, please contact a member of your healthcare team. If you have left the hospital and have any questions, please contact your primary care physician. Reason For Referral No Data Found Plan of Treatment US Echo With Color (71723) 04/21/2024 NM Spect Perf Rest Stress Multi (78915) 06/02/2024 Stress Test Chemical 06/02/2024 NM Spect Perf Rest Stress Multi (76896) 06/02/2024 Stress Test Chemical 06/02/2024 Encounters Encounter Diagnosis Start Date Code Code Sys tem Heart failure, unspecified 03/15/2024 S NOMED-CT Personal Care Team Section Performer Name Performer Role Active Date Inactive EDDIE Harry PCP - Primary care physician 2024-04-20 2
== END 2024-08-30 11:41 | disposition home or self-care (01) ==
LOC: CHSLAB 11:40
PROVIDERS: PCP Family Medicine; Visit Provider Nurse Practitioner Family
DX: E11.9 Type 2 diabetes mellitus without complications (principal); I10 Essential (primary) hypertension; E11.59 Type 2 diabetes mellitus with other circulatory complications; I15.2 Hypertension secondary to endocrine disorders; N18.30 Chronic kidney disease, stage 3 unspecified; E78.5 Hyperlipidemia, unspecified; E11.69 Type 2 diabetes mellitus with other specified complication
CPT/HCPCS: 36415; 80053; 80061; 83036; 84443; 85025

== ENCOUNTER 2024-08-30 13:23 | Emergency (ER) | payer OTHER, SELFPAY ==
--- NOTE | ~2024-08-30 | XR_ITS ---
EXAMINATION: XR chest 1V portable DATE: 08/30/2024 13:59 INDICATION: Hyperglycemia. TECHNIQUE: A single frontal view of the chest was obtained. COMPARISON: Chest 2 view 02/08/2024 FINDINGS: Sensitivity is decreased by obesity. There is no pneumonia, pleural effusion, or pneumothor ax. The heart is normal. IMPRESSION: 1. No acute cardiopulmonary disease. Reviewed, dictated and finalized at location A. [place] [employer]ARD [employer]CHANDISING
[2024-08-30 13:33] VITALS: BP 159/83; PULSE 85; RESP 18; TEMP 36.4; O2SAT 96
[2024-08-30 13:33] LABS: Glucose Point of Care 345 mg/dl (65-105)
--- NOTE | 2024-08-30 13:49 | ED.GENADULT ---
HPI - General Adult General Chief complaint: Recheck/Abnormal Lab/Rx Stated complaint: BLOOD SUGAR ISSUES Time Seen by Provider: 08/30/24 13:42 Source: patient Mode of arrival: ambulatory Limitations: no limitations History of Present Illness HPI narrative: 68 YEARS OLD WHITE FEMALE REFERRED TO THE EMERGENCY ROOM BECAUSE OF ELEVATED BLOOD GLUCOSE. PATIENT WHEN SEE HER FAMILY PHYSICIAN TODAY BECAUSE OF PAIN AT THE LEFT LOWER LEG OLD WAY UP TO THE LEFT BUTTOCK STARTED 2-3 WEEKS AGO. PATIENT SCHEDULE FOR ULTRASOUND. PATIENT HAD BLOOD WORKUP IN THE OFFICE TODAY, RECEIVED A PHONE CALL TO GO TO THE EMERGENCY ROOM BECAUSE OF ELEVATED BLOOD GLUCOSE 400+. PATIENT DENIES ANY FEVER, CHILLS, NAUSEA, VOMITING, DIARRHEA, CONSTIPATION, ABDOMINAL PAIN, CHEST PAIN, COUGHING OR UPPER RESPIRATORY SYMPTOMS. PATIENT IS TELLING ME THAT SHE BEEN FEELING THIRSTY OVER THE LAST 2 WEEKS. PATIENT REPORTS BLOOD GLUCOSE EVERY MORNING A RUNNING 260-300. PATIENT DENIED ANY NEW CHANGES IN HER MEDICATIONS OR FOOD INTAKE OR ACTIVITIES. Related Data Home Medications ?Medication ?Instructions ?Recorded ?Confirmed ?Last Taken ?Type digoxin 125 mcg (0.125 mg) tablet 125 mcg PO DAILY 05/18/24 08/25/24 Unknown History metoprolol tartrate 100 mg tablet mg PO DAILY 08/30/24 Unknown History Allergies Allergy/AdvReac Type Severity Reaction Status Date / Time No Known Allergies Allergy Verified 08/30/24 13:33 Review of Systems Review of Systems: All systems reviewed & are unremarkable except as noted in HPI and below [facility] Past Medical History Medical History Chronic obstructive pulmonary disease Heart failure with reduced ejection fraction and diastolic dysfunction EF was 40 to 45% on echo in September 2022. Type 2 diabetes mellitus Chronic kidney disease, stage 3 Gout Chronic anticoagulation Paroxysmal atrial fibrillation History of cardioversion and ablation. Hyperlipidemia Hypertension Surgical History Surgical History History of cataract extraction History of cardiac radiofrequency ablation History of total left hip arthroplasty History of cholecystectomy History of surgical removal of lesion Family History Family History Sibling Lung cancer Sibling Diabetes mellitus Hypertension Sibling Acute myocardial infarction Mother Summers disease Sibling Accidental Social History Social History Social History: Surrogate medical decision maker: Lauren Zimmer, niece. Code status: Full code. Smoking status: Never smoker Second hand tobacco smoke exposure: Yes Alcohol intake: never Substance use: never Substance use type: does not use Do You Feel Safe in your Home?: Yes Lack of Transportation: YES Lack of Food: Never True Current Housing: I Have Housing Concerned About Future Housing: No Difficulty Paying Gas/Electric Bills: No Difficulty Paying for Meds: No Currently Unemployed: Decline to Answer Education: High School Diploma/GED Difficulty w/ Childcare or Family Care: No Living arrangements: with family Additional living arrangements comments: Daughter is staying with her right now. 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 Spiritual care concerns: No Exam Narrative: GENERAL APPEARANCE: WELL-DEVELOPED, WELL-NOURISHED SKIN: NORMAL COLOR , NO ERYTHEMA, NO RASH. HEAD: NORMOCEPHALIC, NONTRAUMATIC EYES: CLEAR CONJUNCTIVA ENT: OROPHARYNX NORMAL, EARS NORMAL, NOSE NORMAL NECK: SUPPLE, NONTENDER CHEST AND RESPIRATORY: AIRWAY PATENT, NO RESPIRATORY DISTRESS, NO ACCESSORY MUSCLE USE HEART: REGULAR RATE/RHYTHM ABDOMEN: SOFT, NONTENDER, NO ORGANOMEGALY, QUIET BOWEL SOUNDS VASCULAR: NORMAL PERIPHERAL PULSES, NORMAL CAPILLARY REFILL. MUSCULOSKELETAL: SLIGHT LIMITED RANGE OF MOTION OF THE LEFT HIP, OTHERWISE NO SIGNIFICANT ABNORMALITIES NEUROLOGIC: ALERT AND ORIENTED ?3, SENIOR DIGITAL DESIGNER IS NORMAL TESTED, NO GROSS MOTOR DEFICIT Course Vital Signs Vital signs: Vital Signs Oxygen Delivery Room Air 08/30/24 13:23 Temperature 36.4 C 08/30/24 13:33 Pulse Rate 85 08/30/24 13:33 Respiratory Rate 18 08/30/24 13:33 Blood Pressure 159/83 H 08/30/24 13:33 Pulse Oximetry 96 08/30/24 13:33 Oxygen Delivery Room Air 08/30/24 13:33 Medical Decision Making MDM Narrative Medical decision making narrative: PATIENT REFERRED TO THE EMERGENCY ROOM BY HER FAMILY PHYSICIAN OFFICE BECAUSE OF ELEVATED BLOOD GLUCOSE. VITAL SIGNS ARE STABLE PHYSICAL EXAMINATION SHOWING DIFFUSE TENDERNESS OF THE LEFT HIP OTHERWISE WITHIN NORMAL LIMIT DIFFERENTIAL DIAGNOSIS DIABETIC HYPERGLYCEMIA, NONCOMPLIANCE WITH MEDICATION, NONCOMPLIANCE WITH DIET, INFECTION. BLOOD WORKUP TODAY INCLUDES CBC, CMP, HEMOGLOBIN A1C, VENOUS BLOOD GAS SHOWED POTASSIUM OF 3.4, BLOOD GLUCOSE OF 345 CHEST X-RAY SHOWED NO ACUTE ABNORMALITY URINALYSIS SHOWED NO EVIDENCE OF INFECTION HEMOGLOBIN A1C 11 PATIENT RECEIVED 1 L OF NORMAL SALINE IV AND 6 POINT 3 INSULIN IV. , BLOOD GLUCOSE IS 215. DIABETIC HYPERGLYCEMIA COULD BE SECONDARY TO NONCOMPLIANCE WITH MEDICATION, NONCOMPLIANCE WITH DIET OR ACTIVITIES OR ALL OF THE ABOVE. PATIENT NEED TO FOLLOW-UP WITH HER FAMILY PHYSICIAN FOR MEDICATION ADJUSTMENT. THE PT WAS DISCHARGED TO HOME.THE PT,S CONDITION UPON DISCHARGE WAS FAIR,EDUCATION WAS PROVIDED TO THE PT IN REFERENCE TO THE FINAL IMPRESSION,DISCHARGE STUDY RESULTS,TREATMENT,PROGNOSIS AND NEED FOR FOLLOW UP . THE PT WAS DISCHARGED TO HOME.THE PT,S CONDITION UPON DISCHARGE WAS FAIR,EDUCATION WAS PROVIDED TO THE PT IN REFERENCE TO THE FINAL IMPRESSION,DISCHARGE STUDY RESULTS,TREATMENT,PROGNOSIS AND NEED FOR FOLLOW UP . Differential Diagnosis Differential Diagnosis: ABOVE Vital Signs Vital Signs: Vital Signs Oxygen Delivery Room Air 08/30/24 13:23 Temperature 36.4 C 08/30/24 13:33 Pulse Rate 85 08/30/24 13:33 Respiratory Rate 18 08/30/24 13:33 Blood Pressure 159/83 H 08/30/24 13:33 Pulse Oximetry 96 08/30/24 13:33 Oxygen Delivery Room Air 08/30/24 13:33 Lab Data 08/30/24 14:07 08/30/24 14:07 Labs: Lab Results 08/30/24 08/30/24 08/30/24 Range/Units 13:28 13:49 14:07 WBC 6.6 (4.8-10.8) K/mm3 RBC 4.93 (4.20-5.40) M/mm3 Hgb 14.6 H (11.7-13.8) g/dL Hct 42.7 H (35.0-42.0) % MCV 86.6 (78.0-102.0) fL MCH 29.6 (27.0-31.0) pg MCHC 34.2 (32-36) g/dL RDW 13.4 (11.6-14.4) % Plt Count 265 (150-420) K/mm3 MPV 10.8 (9.2-11.8) fl Immature Gran % (Auto) 0.5 H (0.0-0.0) % Neut % (Auto) 73.7 H (50.0-70.0) % Lymph % (Auto) 16.1 L (18.0-42.0) % Lamar % (Auto) 7.5 (2.0-11.0) % Eos % (Auto) 0.8 L (1.0-6.0) % Baso % (Auto) 1.4 H (0.0-1.0) % Lymph # (Auto) 1.07 L (1.10-4.50) K/mm3 Lamar # (Auto) 0.50 (0.10-0.90) K/mm3 Eos # (Auto) 0.05 (0.02-0.50) K/mm3 Baso # (Auto) 0.09 (0.00-0.10) K/mm3 Abs Immat Gran (auto) 0.03 H (0.00-0.00) K/mm3 Absolute Neuts (auto) 4.89 (1.70-7.20) K/mm3 Absolute Nucleated RBC 0.00 (0.00-0.00) K/mm3 Nucleated RBC % 0.0 (0-0.0) % Sodium 138 (136-145) mmol/L Potassium 3.4 L (3.5-5.1) mmol/L Chloride 98 (98-108) mmol/L Carbon Dioxide 30 (21-32) mmol/L Anion Gap 10 (4-12) mmol/L BUN 16 (7-18) mg/dL Creatinine 1.41 H (0.55-1.02) mg/dL Estim Creat Clear Calc 43 ml/min Estimated GFR 37 L (59 - ) Glucose 354 H (70-99) mg/dL POC Capillary Glucose 345 H (65-105) mg/dl Calculated Osmolality 301 H (285-295) mOsm/kg Calcium 9.0 (8.5-10.1) mg/dL Total Bilirubin 1.1 H (0.00-1.00) mg/dL AST 40 H (15-37) U/L ALT 55 (14-59) U/L Alkaline Phosphatase 93 (46-116) U/L Total Protein 7.8 (6.4-8.2) g/dL Albumin 4.0 (3.4-5.0) g/dL Urine Color Light yellow (Yellow) Urine Appearance Clear (Clear) Urine pH 6.0 (5.0-8.0) Ur Specific [place]acho 1.020 (1.010-1.020) Urine Protein Negative (Negative) Urine Glucose (UA) 2+ H (Negative) Urine Ketones Negative (Negative) Ur Blood (Man) Negative (Negative) Urine Nitrate Negative (Negative) Urine Bilirubin Negative (Negative) Urine Urobilinogen 0.2 (0.2-1.0) mg/dL Leukocyte Esterase Rfl Negative (Negative) JASMINA/UL 08/30/24 Range/Units 15:26 WBC (4.8-10.8) K/mm3 RBC (4.20-5.40) M/mm3 Hgb (11.7-13.8) g/dL Hct (35.0-42.0) % MCV (78.0-102.0) fL MCH (27.0-31.0) pg MCHC (32-36) g/dL RDW (11.6-14.4) % Plt Count (150-420) K/mm3 MPV (9.2-11.8) fl Immature Gran % (Auto) (0.0-0.0) % Neut % (Auto) (50.0-70.0) % Lymph % (Auto) (18.0-42.0) % Lamar % (Auto) (2.0-11.0) % Eos % (Auto) (1.0-6.0) % Baso % (Auto) (0.0-1.0) % Lymph # (Auto) (1.10-4.50) K/mm3 Lamar # (Auto) (0.10-0.90) K/mm3 Eos # (Auto) (0.02-0.50) K/mm3 Baso # (Auto) (0.00-0.10) K/mm3 Abs Immat Gran (auto) (0.00-0.00) K/mm3 Absolute Neuts (auto) (1.70-7.20) K/mm3 Absolute Nucleated RBC (0.00-0.00) K/mm3 Nucleated RBC % (0-0.0) % Sodium (136-145) mmol/L Potassium (3.5-5.1) mmol/L Chloride (98-108) mmol/L Carbon Dioxide (21-32) mmol/L Anion Gap (4-12) mmol/L BUN (7-18) mg/dL Creatinine (0.55-1.02) mg/dL Estim Creat Clear Calc ml/min Estimated GFR (59 - ) Glucose (70-99) mg/dL POC Capillary Glucose 215 H (65-105) mg/dl Calculated Osmolality (285-295) mOsm/kg Calcium (8.5-10.1) mg/dL Total Bilirubin (0.00-1.00) mg/dL AST (15-37) U/L ALT (14-59) U/L Alkaline Phosphatase (46-116) U/L Total Protein (6.4-8.2) g/dL Albumin (3.4-5.0) g/dL Urine Color (Yellow) Urine Appearance (Clear) Urine pH (5.0-8.0) Ur Specific [place] (1.010-1.020) Urine Protein (Negative) Urine Glucose (UA) (Negative) Urine Ketones (Negative) Ur Blood (Man) (Negative) Urine Nitrate (Negative) Urine Bilirubin (Negative) Urine Urobilinogen (0.2-1.0) mg/dL Leukocyte Esterase Rfl (Negative) JASMINA/UL ABG Data ABG results: 08/30/24 14:07 VBG pH 7.41 VBG pCO2 47.3 VBG pO2 29.7 L VBG HCO3 29.3 O2 Delivery Device Room air O2 Liters/Min 0.0 Imaging Data Radiologist's impression: Impressions Chest X-Ray 08/30/24 14:01 IMPRESSION: 1. No acute cardiopulmonary disease. Critical Care Time Critical Care Time Critical Care Time: No Discharge Plan Discharge Clinical Impression: Overweight, Hyperglycemia due to diabetes mellitus Patient Disposition: Home, Self-Care Condition: Improved Instructions: Diabetic Hyperglycemia (ED) Additional Instructions: RETURN IF SYMPTOMS ARE WORSENING , CALL YOUR FAMILY PHYSICIAN FOR APPOINTMENT, FOR ANTI DIABETIC MEDICATION READJUSTMENT. CHECK BLOOD GLUCOSE 4 TIMES A DAY BEFORE MEALS Patient Language: Yi Prescriptions: No Action (DME) blood-glucose meter Kit See Rx Instructions .Route Qty: 1 0RF Rx Instructions: As directed Mounjaro 2.5 mg/0.5 mL pen injector 2.5 mg subcut WEEKLY Qty: 2 0RF Rx Instructions: for 4 weeks torsemide 100 mg tablet 100 mg PO QAM Qty: 90 3RF dapagliflozin propanediol [Farxiga] 10 mg tablet 10 mg PO DAILY Qty: 90 0RF apixaban 5 mg tablet 5 mg PO BID Qty: 90 0RF metoprolol tartrate 100 mg tablet PO DAILY Mounjaro 2.5 mg/0.5 mL pen injector 2.5 mg subcut WEEKLY Qty: 2 0RF Rx Instructions: *SAMPLE* LOT: [id number] EXP: 01/20/26 4 PENS GIVEN digoxin 125 mcg (0.125 mg) tablet 125 mcg PO DAILY (DME) blood sugar diagnostic Strip See Rx Instructions .Route Qty: 30 0RF Rx Instructions: As directed (DME) lancets Misc See Rx Instructions .Route Qty: 100 0RF Rx Instructions: As directed (DME) blood-glucose meter Kit See Rx Instructions .Route Qty: 1 0RF Rx Instructions: As directed amlodipine 10 mg tablet 10 mg PO DAILY Qty: 90 3RF allopurinol 100 mg tablet See Rx Instructions .ROUTE .COMPLEX Qty: 180 0RF Dose Instruction: TAKE 2 TABLETS BY MOUTH TWICE DAILY Rx Instructions: TAKE 2 TABLETS BY MOUTH TWICE DAILY albuterol sulfate 90 mcg/actuation HFA aerosol inhaler 1 inh inhalation Q4H PRN (Reason: shortness of breath or wheezing) Qty: 8.5 0RF gabapentin 300 mg capsule See Rx Instructions .ROUTE .COMPLEX Qty: 270 0RF Dose Instruction: TAKE 1 CAPSULE BY MOUTH THREE TIMES A DAY Rx Instructions: TAKE 1 CAPSULE BY MOUTH THREE TIMES A DAY Follow-up/Referrals: Júnior Leung, [Primary Care Provider] -
--- OUTSIDE RECORDS SUMMARY | 2024-08-30 14:08 | XMS_ITS | Encounter Summary ---
Author Organization [facility] Address [address] [place] [address] Care Team Providers Care Peoplesoft Consultant Name Role Phone Ricci Marshall MD Unavailable Unavailab Júnior Huynh DO Primary Care Provider [phone] Eun Hu MD Unavailable [phone] Encounter Details Date Type Department Care Team (Late st Contact Info) Description 02/13/2016 [facility] [address] [place] [address] Ricci Marshall MD Social History Tobacco Use Types Packs/Day Years Used Date Smoking Tobacco: Never Alcohol Use Standard Drinks/Week Comments No 0 (1 standard drink = 0.6 oz pur e alcohol) Comments Unknown Sex and Gender Information Value Date Recorded Sex Assigned at Not on file Legal Sex Female 6:12 PM CDT Gender Identity Female 08/05/2021 11:22 AM DIRECTOR OF RETAIL OPERATIONS Sexual Orientation Straight 08/05/2021 11 :22 AM DIRECTOR OF RETAIL OPERATIONS Occupation Industry Job Start Date Job End Date retired Not on file Not on file Not on file documented as of this encounter Plan of Treatment Not on file documented as of this encounter Visit Diagnoses Not on filedocumented in this encounter Additional Health Concerns Infection Onset Date Last Indicated Resolved Time COVID-19 Rule Out 08/06/2021 08/06/2021 08/06/2021 2:29 PM DIRECTOR OF RETAIL OPERATIONS documented as of this encounter Care Teams Peoplesoft Consultant Relationship Specialty Start Date End Date Júnior Leung DO [address] [place] [address] PCP - General FAMILY PRACTICE 07/11/20 Ricci Marshall MD CARDIOVASCULAR DISEASE 02/13/16 07/10/20 Eun Hu MD [address] [place] [id number] INTERVENTIONAL CARDIOLOGY 07/11/20 documented as of this encounter
--- OUTSIDE RECORDS SUMMARY | 2024-08-30 14:08 | XMS_ITS | Clinical Summary ---
Author Organization [facility] Address [address] [place] [address] Care Team Providers Care Procurement Specialist Name Role Phone Scottnick Júnior DURON Primary Care Provider [phone] Eun Hu MD Unavailable [phone] Allergies No known active allergies Medications [...] Problem Noted Date Diagnosed Date Atrial fibrillation ([facility]) 08/08/2020 Morbid obesity ([facility]) 08/08/2020 Hypertension Edema Shortness of breath Family [...] CDT Gender Identity Female 08/05/2021 11:22 AM STAFF RESEARCH SCIENTIST Sexual Orientation Straight 08/05/2021 11 :22 AM STAFF RESEARCH SCIENTIST Occupation Industry Job Start Date Job End Date retired Not on file Not on file Not on file Last Filed Vital Signs Vital Sign Reading Time Taken Comments Blood Pressure 141/88 10/02/2021 9:52 AM CDT Pulse 73 10/02/2021 9:51 AM CDT Temperature 36.5 C (97.7 F) 08/10/2021 7:52 AM STAFF RESEARCH SCIENTIST Respiratory Rate 20 10/02/2021 9:51 AM CDT [...] this topic Meningococcal Vaccine Aged Out No rajiv leo eligible based on patient's age to complete this topic RSV Immunizations Under 20 Months Aged Out No longer eligible b ased on patient's age to complete this topic Insurance MEDICAID AETNA Advance Directives * Full Code (Latest Code Status on File) Date Activated Date Inactivated Comments 08/08/2021 12:28 PM 08/10/2021 1:35 PM Care Teams Procurement Specialist Relationship Specialty Start Date End Date Júnior Leung DO [address] [place] [address] PCP - General FAMILY PRACTICE 07/11/20 Eun Hu MD [address] [place] [address] INTERVENTIONAL CARDIOLOGY 07/11/20
--- OUTSIDE RECORDS SUMMARY | 2024-08-30 14:08 | XMS_ITS ---
Author Organization Unknown Address [address] [place] [phone] Phone Care Team Providers Care Grocery Store Manager Name Role Phone JADEN CLYDE Attending Unavailable [facility] Primary Unavailable Immunization Immunization Date Status [...] Smoking History Unknown if ever smoked [id number] Sex Female Hospital Discharge Instructions Should you have any questions prior to discharge, please contact a member of your healthcare team. If you have left the hospital and have any questions, please contact your primary care physician. Reason For Referral No Data Found Plan of Treatment US Echo With Color (93590) 04/21/2024 NM Spect Perf Rest Stress Multi (25479) 06/02/2024 Stress Test Chemical 06/02/2024 NM Spect Perf Rest Stress Multi (90176) 06/02/2024 Stress Test Chemical 06/02/2024 Encounters Encounter Diagnosis Start Date Code Code Sys tem Heart failure, unspecified 06/02/2024 S NOMED-CT Personal Care Team Section Performer Name Performer Role Active Date Inactive EDDIE Harry PCP - Primary care physician 2024-04-20 2
--- OUTSIDE RECORDS SUMMARY | 2024-08-30 14:08 | XMS_ITS ---
Author Organization Unknown Address [address] [place] [phone] Phone Care Team Providers Care Plugman Name Role Phone JADEN CLYDE Attending Unavailable [facility] Primary Unavailable Immunization Immunization Date Status [...] 50 mcg/0.25mL dose 07/26/2021 Completed 207 CVX Results US ECHO W/ COLOR - Completed : 04/21/2024 13:28 LOINC: See Scanned Image Attachment for Report Dictated By: Trans Initials: BG Trans Date: 04/26/24 14:43 <<REPDIST>> Social History Type Status Start Date End Date Code Code Syst em Smoking History Unknown if ever smoked [id number] Sex Female Hospital Discharge Instructions Should you have any questions prior to discharge, please contact a member of your healthcare team. If you have left the hospital and have any questions, please contact your primary care physician. Reason For Referral No Data Found Plan of Treatment US Echo With Color (84915) 04/21/2024 NM Spect Perf Rest Stress Multi (62896) 06/02/2024 Stress Test Chemical 06/02/2024 NM Spect Perf Rest Stress Multi (31223) 06/02/2024 Stress Test Chemical 06/02/2024 Encounters Encounter Diagnosis Start Date Code Code Sys tem Unspecified atrial fibrillation 04/21/2024 SNOMED-CT Personal Care Team Section Performer Name Performer Role Active Date Inactive EDDIE Harry PCP - Primary care physician 2023-10-2 2 Imaging Narrative Notes [facility] 04/26/2024 14:[address] [address] RADIOLOGY REPORT Patient Number: [id number] Patient Name: ASHA MARTINEZ Type: O/P MR Number: [id number] : 1955 Age: 68 Sex: F Room #: Admit Date: 04/21/24 Discharge Date 04/21/24 Ordering Physician: JADEN TANG Family Physician: NO PCP Second Physician: X-Ray Number : [id number] US ECHO W/ COLOR [id number] COMPLETE:04/21/24 13:28 [facility] [id number] (REASON-ECHO COMPLTE: ATRIAL FIBRILLATION See Scanned Image Attachment for Report Dictated By: Heraclio Initials: Trans Date: 04/26/24 14:43 <<REPDIST>>
--- OUTSIDE RECORDS SUMMARY | 2024-08-30 14:08 | XMS_ITS | Encounter Summary ---
Author Organization [facility] Address [address] [place] [address] Care Team Providers Care Hotel Supplies Salesperson Name Role Phone ScottnickJúnior DO Primary Care Provider [phone] Eun Hu MD Unavailable [phone] Encounter Details Date Type Department Care Team (Late st Contact Info) Description 10/29/2021 Abstract [facility] [address] Sara Stewart, [facility]- [address] [place] [address] Social History Tobacco Use Types Packs/Day Years Used Date Smoking Tobacco: Never Smokeless Tobacco: Never Alcohol Use Standard Drinks/Week Comments No 0 (1 standard drink = 0.6 oz pur e alcohol) Comments Unknown Sex and Gender Information Value Date Recorded Sex Assigned at Not on file Legal Sex Female 6:12 PM CDT Gender Identity Female 08/05/2021 11:22 AM EXHAUST EMISSIONS AUTOMOTIVE TECHNICIAN Sexual Orientation Straight 08/05/2021 11 :22 AM EXHAUST EMISSIONS AUTOMOTIVE TECHNICIAN Occupation Industry Job Start Date Job End [...] Assessment Author Status No 08/08/2021 1:49 PM EXHAUST EMISSIONS AUTOMOTIVE TECHNICIAN Activ e * RETIRED Are you blind or do you have serious difficulty seeing, even when wearing glasses? Answer Date of Assessment Author Status No 08/08/2021 1:49 PM EXHAUST EMISSIONS AUTOMOTIVE TECHNICIAN Activ e * Do you have serious difficulty walking or climbing stairs? Answer Date of Assessment Author Status No 08/08/2021 1:49 PM EXHAUST EMISSIONS AUTOMOTIVE TECHNICIAN Mackenzie Mendez R N Active * Do you have difficulty dressing or bathing? Answer Date of Assessment Author Status No 08/08/2021 1:49 PM EXHAUST EMISSIONS AUTOMOTIVE TECHNICIAN Mackenzie Mendez R N Active * Because of a physical, mental, or emotional condition, do you have difficulty doing errands alone such as visiting a doctor's office or shopping? Answer Date of Assessment Author Status No 08/08/2021 1:49 PM EXHAUST EMISSIONS AUTOMOTIVE TECHNICIAN Mackenzie Mendez R N Active documented as of this encounter Mental Status * Because of a physical, mental, or emotional condition, do you have serious difficulty concentrating, remembering, or making decisions? Answer Entry Date Author Status No 08/08/2021 1:49 PM EXHAUST EMISSIONS AUTOMOTIVE TECHNICIAN Mackenzie Mendez R N Active documented in this encounter Plan of Treatment Not on file documented as of this encounter Procedures Procedure Name Priority Date/Time Associated Diagnosis Comments PROTHROMBIN TIME, VENOUS Routine 10/25/2021 Paroxysmal atrial fibrillation ([facility]HCC) documented in this encounter Results * PROTHROMBIN TIME, VENOUS (10/25/2021) PROTIME WHOLE BLOOD 31.9 INR WHOLE BLOOD 3.20 10/25/2021 Sara Stewart [facility] Final Res ult documented in this encounter Visit Diagnoses Diagnosis Paroxysmal atrial fibrillation ([facility]/HCC HHS/HCC) Atrial fibrillation documented in this encounter Care Teams Hotel Supplies Salesperson Relationship Specialty Start Date End Date Júnior Leung DO [address] [place] [address] PCP - General FAMILY PRACTICE 07/11/20 Eun Hu MD [address] [place] [address] INTERVENTIONAL CARDIOLOGY 07/11/20 documented as of this encounter
--- OUTSIDE RECORDS SUMMARY | 2024-08-30 14:08 | XMS_ITS ---
Author Organization Unknown Address [address] [place] [phone] Phone Care Team Providers Care Bead Preparer Name Role Phone JADEN CLYDE Attending Unavailable [facility] Primary Unavailable Immunization Immunization Date Status [...] Smoking History Unknown if ever smoked [id number] Sex Female Hospital Discharge Instructions Should you have any questions prior to discharge, please contact a member of your healthcare team. If you have left the hospital and have any questions, please contact your primary care physician. Reason For Referral No Data Found Plan of Treatment US Echo With Color (42290) 04/21/2024 NM Spect Perf Rest Stress Multi (07624) 06/02/2024 Stress Test Chemical 06/02/2024 NM Spect Perf Rest Stress Multi (65914) 06/02/2024 Stress Test Chemical 06/02/2024 Encounters Encounter Diagnosis Start Date Code Code Sys tem Unspecified systolic (congestive) heart failure 2023 SNOMED-CT Personal Care Team Section Performer Name Performer Role Active Date Inactive EDDIE Harry PCP - Primary care physician 2024-04-2 2
--- OUTSIDE RECORDS SUMMARY | 2024-08-30 14:09 | XMS_ITS | Encounter Summary ---
Author Organization [facility] Address [address] [place] [address] Care Team Providers Care Supervisor Boiler Repair Name Role Phone Júnior Leung Primary Care Provider Eun Hu MD Unavailable [phone] Encounter Details Date Type Department Care Team (Late st Contact Info) Description 01/08/2021 Prep for Procedure [facility] [address] [place] [address] Eun Hu MD [address] [place] [address] Social History Tobacco Use Types Packs/Day Years Used Date Smoking Tobacco: Never Smokeless Tobacco: Never Alcohol Use Standard Drinks/Week Comments No 0 (1 standard drink = 0.6 oz pur e alcohol) Comments Unknown Sex and Gender Information Value Date Recorded Sex Assigned at Not on file Legal Sex Female 6:12 PM CDT Gender Identity Female 08/05/2021 11:22 AM ACADEMIC SUPPORT COORDINATOR Sexual Orientation Straight 08/05/2021 11 :22 AM ACADEMIC SUPPORT COORDINATOR Occupation Industry Job Start Date Job End [...] Rule Out 08/06/2021 08/06/2021 08/06/2021 2:29 PM ACADEMIC SUPPORT COORDINATOR documented as of this encounter Care Teams Supervisor Boiler Repair Relationship Specialty Start Date End Date Júnior Leung DO [address] [place] [address] PCP - General FAMILY PRACTICE 07/11/20 Eun Hu MD [address] [place] [address] [id number] INTERVENTIONAL CARDIOLOGY 07/11/20 documented as of this encounter
--- OUTSIDE RECORDS SUMMARY | 2024-08-30 14:09 | XMS_ITS | Encounter Summary ---
Author Organization [facility] Address [facility] [place] [address] Care Team Providers Care County Assessor Name Role Phone Scottnick Júnior DURON Primary Care Provider [phone] Eun Hu MD Unavailable [phone] Encounter Details Date Type Department Care Team (Late st Contact Info) Description 08/07/2021 Hospital Orders Only [facility] Anesthesia [address] [place] [address] Gay Guevara Anesthesia Record Procedure Summary Procedure [...] CDT Gender Identity Female 08/05/2021 11:22 AM LACE ROLLER Sexual Orientation Straight 08/05/2021 11 :22 AM LACE ROLLER Occupation Industry Job Start Date Job End Date retired Not on file Not on file Not on file COVID-19 Exposure Response Date Recorded In the last month, have you been in contact with someone who was confirmed or suspected to have Coronavirus / COVID-19? No / Unsure 08/08/2021 7:06 AM LACE ROLLER documented as of this encounter Functional Status documented as of this encounter Mental Status * Question Answer Entry Date Author Status Because of a physical, mental, or emotional condition, do you have serious difficulty concentrating, remembering, or making decisions? No 08/08/2021 1:49 PM LACE ROLLER Mackenzie Mendez RN Active documented in this encounter Plan of Treatment Not on file documented as of this encounter Visit Diagnoses Not on filedocumented in this encounter Care Teams County Assessor Relationship Specialty Start Date End Date Júnior Leung DO [address] [place] [address] PCP - General FAMILY PRACTICE 07/11/20 Eun Hu MD [address] [place] [address] INTERVENTIONAL CARDIOLOGY 07/11/20 documented as of this encounter
--- OUTSIDE RECORDS SUMMARY | 2024-08-30 14:09 | XMS_ITS | Encounter Summary ---
Author Organization [facility] Address [facility] [place] [address] Care Team Providers Care Automobile Detailer Name Role Phone Scottnick Júnior DURON Primary Care Provider [phone] Eun Hu MD Unavailable [phone] Encounter Details Date Type Department Care Team (Late st Contact Info) Description 01/10/2021 Hospital Orders Only [facility] Anesthesia [address] [place] [address] Gay Guevara Anesthesia Record Procedure Summary Procedure [...] CDT Gender Identity Female 08/05/2021 11:22 AM CAKE ICER AND PACKER Sexual Orientation Straight 08/05/2021 11 :22 AM CAKE ICER AND PACKER Occupation Industry Job Start Date Job End [...] Rule Out 08/06/2021 08/06/2021 08/06/2021 2:29 PM CAKE ICER AND PACKER documented as of this encounter Care Teams Automobile Detailer Relationship Specialty Start Date End Date Júnior Leung DO [address] [place] [address] PCP - General FAMILY PRACTICE 07/11/20 Eun Hu MD [address] [place] [address] INTERVENTIONAL CARDIOLOGY 07/11/20 documented as of this encounter
[2024-08-30 14:12] LABS: Basophils Absolute Auto 0.09 K/mm3 (0.00-0.10); Basophils Percent Auto 1.4 % (0.0-1.0); Eosinophils Absolute Auto 0.05 K/mm3 (0.02-0.50); Eosinophils Percent Auto 0.8 % (1.0-6.0); Hematocrit 42.7 % (35.0-42.0); Hemoglobin 14.6 g/dL (11.7-13.8); Immature Granulocyte Absolute 0.03 K/mm3 (0.00-0.00); Immature Granulocyte Percent A 0.5 % (0.0-0.0); Lymphocytes Absolute Auto 1.07 K/mm3 (1.10-4.50); Lymphocytes Percent Auto 16.1 % (18.0-42.0); Mean Corpuscular HGB Conc 34.2 g/dL (32-36); Mean Corpuscular Hemoglobin 29.6 pg (27.0-31.0); Mean Corpuscular Volume 86.6 fL (78.0-102.0); Mean Platelet Volume 10.8 fl (9.2-11.8); Monocytes Percent Auto 7.5 % (2.0-11.0); Neutrophils Absolute Auto 4.89 K/mm3 (1.70-7.20); Neutrophils Percent Auto 73.7 % (50.0-70.0); Platelet Count Result 265 K/mm3 (150-420); Red Blood Count 4.93 M/mm3 (4.20-5.40); Red Cell Distribution Width 13.4 % (11.6-14.4); White Blood Count 6.6 K/mm3 (4.8-10.8)
[2024-08-30 14:19] LABS: Device ROOM AIR; HCO3 VBG 29.3 mEq/l (24.0-30.0); PCO2 VBG 47.3 mmHg (42.0-48.0); PO2 VBG 29.7 mmHg (35.0-45.0); pH VBG 7.41 (7.33-7.43)
[2024-08-30] MEDS: SODIUM CHLORIDE 0.9% IV 1,000 ML 999 ML IV CONT (14:22)
[2024-08-30] MEDS: INSULIN HUMAN REGULAR (*BKC) 1,000 UNITS/10 ML VIAL 6.3 UNITS IV PUSH (14:23)
--- NOTE | 2024-08-30 14:31 | PC.NURSE ---
PT HAS AMBULATED TO , CHANGED INTO GOWN. 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 NO REDNESS, STREAKING, HEAT NOTED. PT REPORTS SHE WENT TO PMD OFFICE TODAY DUE TO THE LEG PAIN. DENIES ANY SOB, DIFFICULTY BREATHING, OR CP.
[2024-08-30 14:32] LABS: Alanine Aminotransferase 55 U/L (14-59); Alkaline Phosphatase 93 U/L (46-116); Anion Gap 10 mmol/L (4-12); Aspartate Amino Transferase 40 U/L (15-37); Bilirubin,Total 1.1 mg/dL (0.00-1.00); Blood Urea Nitrogen 16 mg/dL (7-18); Carbon Dioxide 30 mmol/L (21-32); Chloride 98 mmol/L (98-108); Estimated CRCL calculation 43 ml/min; Estimated Glomerular Filt Rate 37; Glucose 354 mg/dL (70-99); Osmolality Calculated 301 mOsm/kg (285-295); Potassium 3.4 mmol/L (3.5-5.1); Sodium 138 mmol/L (136-145); Total Protein 7.8 g/dL (6.4-8.2)
[2024-08-30 14:32] LABS: Add Urine Microscopic? NO; Appearance Urine Clear (Clear); Bilirubin Urine Negative (Negative); Blood Urine Negative (Negative); Color Urine Light Yellow (Yellow); Glucose Urine UA 2+ (Negative); Ketones Urine Negative (Negative); Leukocyte Esterase Ur Negative LEU/UL (Negative); Nitrate Urine Negative (Negative); Protein Urine Negative (Negative); Urobilinogen Urine 0.2 mg/dL (0.2-1.0)
--- OUTSIDE RECORDS SUMMARY | 2024-08-30 14:41 | XMS_ITS ---
Author Organization Unknown Address [address] [place] [phone] Phone Care Team Providers Care Litigation Support Analyst Name Role Phone JADEN CLYDE Attending Unavailable [facility] Primary Unavailable Immunization Immunization Date Status [...] Smoking History Unknown if ever smoked [id number] Sex Female Hospital Discharge Instructions Should you have any questions prior to discharge, please contact a member of your healthcare team. If you have left the hospital and have any questions, please contact your primary care physician. Reason For Referral No Data Found Plan of Treatment US Echo With Color (61029) 04/21/2024 NM Spect Perf Rest Stress Multi (77245) 06/02/2024 Stress Test Chemical 06/02/2024 NM Spect Perf Rest Stress Multi (78235) 06/02/2024 Stress Test Chemical 06/02/2024 Encounters Encounter Diagnosis Start Date Code Code Sys tem Unspecified systolic (congestive) heart failure 2023 SNOMED-CT Personal Care Team Section Performer Name Performer Role Active Date Inactive EDDIE Harry PCP - Primary care physician 2024-04-2 2
--- OUTSIDE RECORDS SUMMARY | 2024-08-30 14:41 | XMS_ITS ---
Author Organization Unknown Address [address] [place] [phone] Phone Care Team Providers Care Risk Management Consultant Name Role Phone JADEN CLYDE Attending Unavailable [facility] Primary Unavailable Immunization Immunization Date Status [...] Smoking History Unknown if ever smoked [id number] Sex Female Hospital Discharge Instructions Should you have any questions prior to discharge, please contact a member of your healthcare team. If you have left the hospital and have any questions, please contact your primary care physician. Reason For Referral No Data Found Plan of Treatment US Echo With Color (44867) 04/21/2024 NM Spect Perf Rest Stress Multi (20617) 06/02/2024 Stress Test Chemical 06/02/2024 NM Spect Perf Rest Stress Multi (97356) 06/02/2024 Stress Test Chemical 06/02/2024 Encounters Encounter Diagnosis Start Date Code Code Sys tem Heart failure, unspecified 06/02/2024 S NOMED-CT Personal Care Team Section Performer Name Performer Role Active Date Inactive EDDIE Harry PCP - Primary care physician 2024-04-20 2
--- OUTSIDE RECORDS SUMMARY | 2024-08-30 14:41 | XMS_ITS | Encounter Summary ---
Author Organization [facility] Address [address] [place] [address] Care Team Providers Care Centrifugal Extractor Operator Name Role Phone ScottnickJúnior DO Primary Care Provider [phone] Eun Hu MD Unavailable [phone] Encounter Details Date Type Department Care Team (Late st Contact Info) Description 10/29/2021 Abstract [facility] [address] Sara Stewart, [facility]- [address] [place] [address] Social History Tobacco Use Types Packs/Day Years Used Date Smoking Tobacco: Never Smokeless Tobacco: Never Alcohol Use Standard Drinks/Week Comments No 0 (1 standard drink = 0.6 oz pur e alcohol) Comments Unknown Sex and Gender Information Value Date Recorded Sex Assigned at Not on file Legal Sex Female 6:12 PM CDT Gender Identity Female 08/05/2021 11:22 AM MAIL PROCESSOR Sexual Orientation Straight 08/05/2021 11 :22 AM MAIL PROCESSOR Occupation Industry Job Start Date Job End [...] Assessment Author Status No 08/08/2021 1:49 PM MAIL PROCESSOR Activ e * RETIRED Are you blind or do you have serious difficulty seeing, even when wearing glasses? Answer Date of Assessment Author Status No 08/08/2021 1:49 PM MAIL PROCESSOR Activ e * Do you have serious difficulty walking or climbing stairs? Answer Date of Assessment Author Status No 08/08/2021 1:49 PM MAIL PROCESSOR Mackenzie Mendez R N Active * Do you have difficulty dressing or bathing? Answer Date of Assessment Author Status No 08/08/2021 1:49 PM MAIL PROCESSOR Mackenzie Mendez R N Active * Because of a physical, mental, or emotional condition, do you have difficulty doing errands alone such as visiting a doctor's office or shopping? Answer Date of Assessment Author Status No 08/08/2021 1:49 PM MAIL PROCESSOR Mackenzie Mendez R N Active documented as of this encounter Mental Status * Because of a physical, mental, or emotional condition, do you have serious difficulty concentrating, remembering, or making decisions? Answer Entry Date Author Status No 08/08/2021 1:49 PM MAIL PROCESSOR Mackenzie Mendez R N Active documented in this encounter Plan of Treatment Not on file documented as of this encounter Procedures Procedure Name Priority Date/Time Associated Diagnosis Comments PROTHROMBIN TIME, VENOUS Routine 10/25/2021 Paroxysmal atrial fibrillation ([facility] HHS/HCC) documented in this encounter Results * PROTHROMBIN TIME, VENOUS (10/25/2021) PROTIME WHOLE BLOOD 31.9 INR WHOLE BLOOD 3.20 10/25/2021 Sara Stewart [facility] Final Res ult documented in this encounter Visit Diagnoses Diagnosis Paroxysmal atrial fibrillation ([facility]/HCC HHS/HCC) Atrial fibrillation documented in this encounter Care Teams Centrifugal Extractor Operator Relationship Specialty Start Date End Date Júnior Leung DO [address] [place] [address] PCP - General FAMILY PRACTICE 07/11/20 Eun Hu MD [address] [place] [address] INTERVENTIONAL CARDIOLOGY 07/11/20 documented as of this encounter
--- OUTSIDE RECORDS SUMMARY | 2024-08-30 14:41 | XMS_ITS ---
Author Organization Unknown Address [address] [place] [phone] Phone Care Team Providers Care Technology Education Instructor Name Role Phone JADEN CLYDE Attending Unavailable [facility] Primary Unavailable Immunization Immunization Date Status [...] Smoking History Unknown if ever smoked [id number] Sex Female Hospital Discharge Instructions Should you have any questions prior to discharge, please contact a member of your healthcare team. If you have left the hospital and have any questions, please contact your primary care physician. Reason For Referral No Data Found Plan of Treatment US Echo With Color (83445) 04/21/2024 NM Spect Perf Rest Stress Multi (35522) 06/02/2024 Stress Test Chemical 06/02/2024 NM Spect Perf Rest Stress Multi (28775) 06/02/2024 Stress Test Chemical 06/02/2024 Encounters Encounter Diagnosis Start Date Code Code Sys tem Unspecified atrial fibrillation 04/21/2024 SNOMED-CT Personal Care Team Section Performer Name Performer Role Active Date Inactive EDDIE Harry PCP - Primary care physician 2023-10-2 2 Imaging Narrative Notes [facility] 04/26/2024 14:[address] [address] RADIOLOGY REPORT Patient Number: [id number] Patient Name: ASHA MARTINEZ Type: O/P MR Number: [id number] : 1955 Age: 68 Sex: F Room #: Admit Date: 04/21/24 Discharge Date 04/21/24 Ordering Physician: JADEN TANG Family Physician: NO PCP Second Physician: X-Ray Number : [id number] US ECHO W/ COLOR [id number] COMPLETE:04/21/24 13:28 [facility] [id number] (REASON-ECHO COMPLTE: ATRIAL FIBRILLATION See Scanned Image Attachment for Report Dictated By: Heraclio Initials: Trans Date: 04/26/24 14:43 <<REPDIST>>
--- OUTSIDE RECORDS SUMMARY | 2024-08-30 14:41 | XMS_ITS | Encounter Summary ---
Author Organization [facility] Address [address] [place] [address] Care Team Providers Care Quality Coordinator Name Role Phone Ricci Marshall MD Unavailable Unavailab Júnior Huynh DO Primary Care Provider [phone] Eun Hu MD Unavailable [phone] Encounter Details Date Type Department Care Team (Late st Contact Info) Description 02/13/2016 [facility] [address] [place] [address] Ricci Marshall MD Social History Tobacco Use Types Packs/Day Years Used Date Smoking Tobacco: Never Alcohol Use Standard Drinks/Week Comments No 0 (1 standard drink = 0.6 oz pur e alcohol) Comments Unknown Sex and Gender Information Value Date Recorded Sex Assigned at Not on file Legal Sex Female 6:12 PM CDT Gender Identity Female 08/05/2021 11:22 AM COAL BRIQUETTE MACHINE OPERATOR Sexual Orientation Straight 08/05/2021 11 :22 AM COAL BRIQUETTE MACHINE OPERATOR Occupation Industry Job Start Date Job End Date retired Not on file Not on file Not on file documented as of this encounter Plan of Treatment Not on file documented as of this encounter Visit Diagnoses Not on filedocumented in this encounter Additional Health Concerns Infection Onset Date Last Indicated Resolved Time COVID-19 Rule Out 08/06/2021 08/06/2021 08/06/2021 2:29 PM COAL BRIQUETTE MACHINE OPERATOR documented as of this encounter Care Teams Quality Coordinator Relationship Specialty Start Date End Date Júnior Leung DO [address] [place] [address] PCP - General FAMILY PRACTICE 07/11/20 Ricci Marshall MD CARDIOVASCULAR DISEASE 02/13/16 07/10/20 Eun Hu MD [address] [place] [address] [id number] INTERVENTIONAL CARDIOLOGY 07/11/20 documented as of this encounter
--- OUTSIDE RECORDS SUMMARY | 2024-08-30 14:41 | XMS_ITS | Clinical Summary ---
Author Organization [facility] Address [address] [place] [address] Care Team Providers Care Receiving Teller Name Role Phone Scottnick Júnior DURON Primary Care Provider [phone] Eun Hu MD Unavailable [phone] Allergies No known active allergies Medications [...] Problem Noted Date Diagnosed Date Atrial fibrillation ([facility]) 08/08/2020 Morbid obesity ([facility]) 08/08/2020 Hypertension Edema Shortness of breath [...] CDT Gender Identity Female 08/05/2021 11:22 AM FARM MANAGEMENT AGENT Sexual Orientation Straight 08/05/2021 11 :22 AM FARM MANAGEMENT AGENT Occupation Industry Job Start Date Job End Date retired Not on file Not on file Not on file Last Filed Vital Signs Vital Sign Reading Time Taken Comments Blood Pressure 141/88 10/02/2021 9:52 AM CDT Pulse 73 10/02/2021 9:51 AM CDT Temperature 36.5 C (97.7 F) 08/10/2021 7:52 AM FARM MANAGEMENT AGENT Respiratory Rate 20 10/02/2021 9:51 AM CDT [...] 12:28 PM 08/10/2021 1:35 PM Care Teams Receiving Teller Relationship Specialty Start Date End Date Júnior Leung DO [address] [place] [address] PCP - General FAMILY PRACTICE 07/11/20 Eun Hu MD [address] [place] [address] INTERVENTIONAL CARDIOLOGY 07/11/20
--- OUTSIDE RECORDS SUMMARY | 2024-08-30 14:42 | XMS_ITS ---
Author Organization Unknown Address [address] [place] [phone] Phone Care Team Providers Care Human Resources Benefits Administrator Name Role Phone JADEN CLYDE Attending Unavailable [...] Smoking History Unknown if ever smoked [id number] Sex Female Hospital Discharge Instructions Should you have any questions prior to discharge, please contact a member of your healthcare team. If you have left the hospital and have any questions, please contact your primary care physician. Reason For Referral No Data Found Plan of Treatment US Echo With Color (11839) 04/21/2024 NM Spect Perf Rest Stress Multi (94889) 06/02/2024 Stress Test Chemical 06/02/2024 NM Spect Perf Rest Stress Multi (22415) 06/02/2024 Stress Test Chemical 06/02/2024 Encounters Encounter Diagnosis Start Date Code Code Sys tem Heart failure, unspecified 03/15/2024 S NOMED-CT Personal Care Team Section Performer Name Performer Role Active Date Inactive EDDIE Haryr PCP - Primary care physician 2024-04-20 2
--- OUTSIDE RECORDS SUMMARY | 2024-08-30 14:42 | XMS_ITS | Encounter Summary ---
Author Organization [facility] Address [facility] [place] [address] Care Team Providers Care Speech And Language Specialist Name Role Phone Scottnick Júnior DURON Primary Care Provider Eun Hu MD Unavailable [phone] Encounter Details Date Type Department Care Team (Late st Contact Info) Description 01/10/2021 Hospital Orders Only [facility] Anesthesia [address] [place] [address] Gay Guevara Anesthesia Record Procedure Summary Procedure [...] CDT Gender Identity Female 08/05/2021 11:22 AM RURAL ROUTE MAIL CARRIER Sexual Orientation Straight 08/05/2021 11 :22 [address] RURAL ROUTE MAIL CARRIER Occupation Industry Job Start Date Job End [...] Rule Out 08/06/2021 08/06/2021 08/06/2021 2:29 PM RURAL ROUTE MAIL CARRIER documented as of this encounter Care Teams Speech And Language Specialist Relationship Specialty Start Date End Date Júnior Leung DO [address] [place] [address] PCP - General FAMILY PRACTICE 07/11/20 Eun Hu MD [address] [place] [address] INTERVENTIONAL CARDIOLOGY 07/11/20 documented as of this encounter
--- OUTSIDE RECORDS SUMMARY | 2024-08-30 14:42 | XMS_ITS | Encounter Summary ---
Author Organization [facility] Address [address] [place] [address] Care Team Providers Care Hot Wound Spring Production Supervisor Name Role Phone Júnior Leung Primary Care Provider [phone] Eun Hu MD Unavailable [phone] Encounter Details Date Type Department Care Team (Late st Contact Info) Description 01/08/2021 Prep for Procedure [facility] [address] [place] [address] Eun Hu MD [address] [place] [address] Social History Tobacco Use Types Packs/Day Years Used Date Smoking Tobacco: Never Smokeless Tobacco: Never Alcohol Use Standard Drinks/Week Comments No 0 (1 standard drink = 0.6 oz pur e alcohol) Comments Unknown Sex and Gender Information Value Date Recorded Sex Assigned at Not on file Legal Sex Female 6:12 PM CDT Gender Identity Female 08/05/2021 11:22 AM SOCIAL MEDIA CONTENT SPECIALIST Sexual Orientation Straight 08/05/2021 11 :22 AM SOCIAL MEDIA CONTENT SPECIALIST Occupation Industry Job Start Date Job End [...] Rule Out 08/06/2021 08/06/2021 08/06/2021 2:29 PM SOCIAL MEDIA CONTENT SPECIALIST documented as of this encounter Care Teams Hot Wound Spring Production Supervisor Relationship Specialty Start Date End Date Júnior Leung DO [address] [place] [address] PCP - General FAMILY PRACTICE 07/11/20 Eun Hu MD [address] [place] [address] [id number] INTERVENTIONAL CARDIOLOGY 07/11/20 documented as of this encounter
--- OUTSIDE RECORDS SUMMARY | 2024-08-30 14:42 | XMS_ITS | Encounter Summary ---
Author Organization [facility] Address [facility] [place] [address] Care Team Providers Care Mechanical Tech Name Role Phone Scottnick Júnior DURON Primary Care Provider [phone] Eun Hu MD Unavailable [phone] Encounter Details Date Type Department Care Team (Late st Contact Info) Description 08/07/2021 Hospital Orders Only [facility] Anesthesia [address] [place] [address] Gay Guevara Anesthesia Record Procedure Summary Procedure [...] CDT Gender Identity Female 08/05/2021 11:22 AM ELECTRICAL FOREMAN Sexual Orientation Straight 08/05/2021 11 :22 AM ELECTRICAL FOREMAN Occupation Industry Job Start Date Job End Date retired Not on file Not on file Not on file COVID-19 Exposure Response Date Recorded In the last month, have you been in contact with someone who was confirmed or suspected to have Coronavirus / COVID-19? No / Unsure 08/08/2021 7:06 AM ELECTRICAL FOREMAN documented as of this encounter Functional Status documented as of this encounter Mental Status * Question Answer Entry Date Author Status Because of a physical, mental, or emotional condition, do you have serious difficulty concentrating, remembering, or making decisions? No 08/08/2021 1:49 PM ELECTRICAL FOREMAN Mackenzie Mendez RN Active documented in this encounter Plan of Treatment Not on file documented as of this encounter Visit Diagnoses Not on filedocumented in this encounter Care Teams Mechanical Tech Relationship Specialty Start Date End Date Júnior Leung DO [address] [place] [address] PCP - General FAMILY PRACTICE 07/11/20 Eun Hu MD [address] [place] [address] INTERVENTIONAL CARDIOLOGY 07/11/20 documented as of this encounter
[2024-08-30 15:17] VITALS: BP 147/90; O2SAT 97
[2024-08-30 15:29] LABS: Glucose Point of Care 215 mg/dl (65-105)
--- NOTE | 2024-08-30 15:29 | PC.NURSE ---
PT IS SITTING ON SIDE OF STRETCHER WITH IVF INFUSING ORDERED WITHOUT DIFFICULTY. PT IS AWAITING ERP DECISION, THE 2ND LITER AND 2ND DOSE OF INSULIN HAS BEEN CANCELLED DUE TO FSBS 215 AT THIS TIME. WILL CONTINUE TO MONITOR.
[2024-08-30 15:46] VITALS: BP 135/89; O2SAT 97
== END 2024-08-30 15:55 | disposition home or self-care (01) ==
PROVIDERS: Emergency Provider Emergency Medicine; PCP Family Medicine
DX: E11.65 Type 2 diabetes mellitus with hyperglycemia (principal); E66.3 Overweight; J44.9 Chronic obstructive pulmonary disease, unspecified; I13.0 Hypertensive heart and chronic kidney disease with heart failure and stage 1 through stage 4 chronic kidney disease, or unspecified chronic kidney disease; I50.9 Heart failure, unspecified; N18.30 Chronic kidney disease, stage 3 unspecified; E11.22 Type 2 diabetes mellitus with diabetic chronic kidney disease; I48.0 Paroxysmal atrial fibrillation; E78.5 Hyperlipidemia, unspecified; Z79.01 Long term (current) use of anticoagulants
CPT/HCPCS: 36415; 71045; 80053; 81003; 82803; 82948; 85025; 96361; 96374; 96376; 99284; J1815; J7030

== ENCOUNTER 2024-08-31 14:47 | Outpatient (CLI) | payer OTHER, SELFPAY ==
--- NOTE | ~2024-08-31 | US_ITS ---
EXAMINATION: US venous doppler [facility] DATE: 08/31/2024 15:21 INDICATION: Other specified soft tissue disorders. TECHNIQUE: Grayscale ultrasound images without and with compression and Doppler ultrasound images of the left lower extremity veins were obtained. COMPARISON: Ultrasound 05/17/2021 FINDINGS: The visualized portions of left common femoral vein, profunda (deep) femoral vein, femoral vein, popl iteal vein, peroneal veins, posterior tibial veins, and greater saphenous vein outflow are patent. IMPRESSION: 1. No deep venous thrombosis. Reviewed, dictated and finalized at location A. DING MACHINE OPERATOR AUTOMATIC
--- OUTSIDE RECORDS SUMMARY | 2024-08-31 14:50 | XMS_ITS ---
Author Organization Unknown Address [address] [place] [phone] Phone Care Team Providers Care Coating Machine Operator Helper Name Role Phone JADEN CLYDE Attending Unavailable [facility] Primary Unavailable Immunization Immunization Date Status Additional [...] Smoking History Unknown if ever smoked [id number] Sex Female Hospital Discharge Instructions Should you have any questions prior to discharge, please contact a member of your healthcare team. If you have left the hospital and have any questions, please contact your primary care physician. Reason For Referral No Data Found Plan of Treatment US Echo With Color (64917) 04/21/2024 NM Spect Perf Rest Stress Multi (57855) 06/02/2024 Stress Test Chemical 06/02/2024 NM Spect Perf Rest Stress Multi (44699) 06/02/2024 Stress Test Chemical 06/02/2024 Encounters Encounter Diagnosis Start Date Code Code Sys tem Unspecified systolic (congestive) heart failure 2023 SNOMED-CT Personal Care Team Section Performer Name Performer Role Active Date Inactive EDDIE Harry PCP - Primary care physician 2024-04-2 2
--- OUTSIDE RECORDS SUMMARY | 2024-08-31 14:50 | XMS_ITS | Clinical Summary ---
Author Organization [facility] Address [address] [place] [address] Care Team Providers Care Ring Attacher Name Role Phone Scottnick Júnior DURON Primary Care Provider [phone] Eun Hu MD Unavailable [phone] Allergies No known active allergies Medications [...] Problem Noted Date Diagnosed Date Atrial fibrillation ([facility]) 08/08/2020 Morbid obesity ([facility]) 08/08/2020 Hypertension Edema Shortness of breath [...] CDT Gender Identity Female 08/05/2021 11:22 AM CUFF PRESSER Sexual Orientation Straight 08/05/2021 11 :22 AM CUFF PRESSER Occupation Industry Job Start Date Job End Date retired Not on file Not on file Not on file Last Filed Vital Signs Vital Sign Reading Time Taken Comments Blood Pressure 141/88 10/02/2021 9:52 AM CDT Pulse 73 10/02/2021 9:51 AM CDT Temperature 36.5 C (97.7 F) 08/10/2021 7:52 AM CUFF PRESSER Respiratory Rate 20 10/02/2021 9:51 AM CDT [...] 12:28 PM 08/10/2021 1:35 PM Care Teams Ring Attacher Relationship Specialty Start Date End Date Júnior Leung DO [address] [place] [address] PCP - General FAMILY PRACTICE 07/11/20 Eun Hu MD [address] [place] [address] INTERVENTIONAL CARDIOLOGY 07/11/20
--- OUTSIDE RECORDS SUMMARY | 2024-08-31 14:50 | XMS_ITS ---
Author Organization Unknown Address [address] [place] [phone] Phone Care Team Providers Care Foreign Language Professor Name Role Phone JADEN CLYDE Attending Unavailable [facility] Primary Unavailable Immunization Immunization Date Status [...] Smoking History Unknown if ever smoked [id number] Sex Female Hospital Discharge Instructions Should you have any questions prior to discharge, please contact a member of your healthcare team. If you have left the hospital and have any questions, please contact your primary care physician. Reason For Referral No Data Found Plan of Treatment US Echo With Color (45778) 04/21/2024 NM Spect Perf Rest Stress Multi (52545) 06/02/2024 Stress Test Chemical 06/02/2024 NM Spect Perf Rest Stress Multi (07197) 06/02/2024 Stress Test Chemical 06/02/2024 Encounters Encounter Diagnosis Start Date Code Code Sys tem Unspecified atrial fibrillation 04/21/2024 SNOMED-CT Personal Care Team Section Performer Name Performer Role Active Date Inactive EDDIE Harry PCP - Primary care physician 2023-10-2 2 Imaging Narrative Notes [facility] 04/26/2024 14:[address] [address] RADIOLOGY REPORT Patient Number: [id number] Patient Name: ASHA MARTINEZ Type: O/P MR Number: [id number] : 1955 Age: 68 Sex: F Room #: Admit Date: 04/21/24 Discharge Date 04/21/24 Ordering Physician: JADEN TANG Family Physician: NO PCP Second Physician: X-Ray Number : [id number] US ECHO W/ COLOR [id number] COMPLETE:04/21/24 13:28 [facility] [id number] (REASON-ECHO COMPLTE: ATRIAL FIBRILLATION See Scanned Image Attachment for Report Dictated By: Heraclio Initials: Trans Date: 04/26/24 14:43 <<REPDIST>>
--- OUTSIDE RECORDS SUMMARY | 2024-08-31 14:50 | XMS_ITS | Encounter Summary ---
Author Organization [facility] Address [address] [place] [address] Care Team Providers Care Crank Hand Name Role Phone ScottnickJúnior DO Primary Care Provider [phone] Eun Hu MD Unavailable [phone] Encounter Details Date Type Department Care Team (Late st Contact Info) Description 10/29/2021 Abstract [facility] [address] Sara Stewart, [facility]- [address] [place] [address] Social History Tobacco Use Types Packs/Day Years Used Date Smoking Tobacco: Never Smokeless Tobacco: Never Alcohol Use Standard Drinks/Week Comments No 0 (1 standard drink = 0.6 oz pur e alcohol) Comments Unknown Sex and Gender Information Value Date Recorded Sex Assigned at Not on file Legal Sex Female 6:12 PM CDT Gender Identity Female 08/05/2021 11:22 AM MATERIAL CONTROL SUPERVISOR Sexual Orientation Straight 08/05/2021 11 :22 AM MATERIAL CONTROL SUPERVISOR Occupation Industry Job Start Date Job [...] Assessment Author Status No 08/08/2021 1:49 PM MATERIAL CONTROL SUPERVISOR Activ e * RETIRED Are you blind or do you have serious difficulty seeing, even when wearing glasses? Answer Date of Assessment Author Status No 08/08/2021 1:49 PM MATERIAL CONTROL SUPERVISOR Activ e * Do you have serious difficulty walking or climbing stairs? Answer Date of Assessment Author Status No 08/08/2021 1:49 PM MATERIAL CONTROL SUPERVISOR Mackenzie Mendez R N Active * Do you have difficulty dressing or bathing? Answer Date of Assessment Author Status No 08/08/2021 1:49 PM MATERIAL CONTROL SUPERVISOR Mackenzie Mendez R N Active * Because of a physical, mental, or emotional condition, do you have difficulty doing errands alone such as visiting a doctor's office or shopping? Answer Date of Assessment Author Status No 08/08/2021 1:49 PM MATERIAL CONTROL SUPERVISOR Mackenzie Mendez R N Active documented as of this encounter Mental Status * Because of a physical, mental, or emotional condition, do you have serious difficulty concentrating, remembering, or making decisions? Answer Entry Date Author Status No 08/08/2021 1:49 PM MATERIAL CONTROL SUPERVISOR Mackenzie Mendez R N Active documented in this encounter Plan of Treatment Not on file documented as of this encounter Procedures Procedure Name Priority Date/Time Associated Diagnosis Comments PROTHROMBIN TIME, VENOUS Routine 10/25/2021 Paroxysmal atrial fibrillation ([facility] HHS/HCC) documented in this encounter Results * PROTHROMBIN TIME, VENOUS (10/25/2021) PROTIME WHOLE BLOOD 31.9 INR WHOLE BLOOD 3.20 10/25/2021 Sara Stewart [facility] Final Res ult documented in this encounter Visit Diagnoses Diagnosis Paroxysmal atrial fibrillation ([facility] HHS/HCC) Atrial fibrillation documented in this encounter Care Teams Crank Hand Relationship Specialty Start Date End Date Júnior Leung DO [address] [place] [address] PCP - General FAMILY PRACTICE 07/11/20 Eun Hu MD [address] [place] [address] INTERVENTIONAL CARDIOLOGY 07/11/20 documented as of this encounter
--- OUTSIDE RECORDS SUMMARY | 2024-08-31 14:50 | XMS_ITS ---
Author Organization Unknown Address [address] [place] [phone] Phone Care Team Providers Care Product Development Director Name Role Phone JADEN CLYDE Attending Unavailable [facility] Primary Unavailable Immunization Immunization Date Status [...] Smoking History Unknown if ever smoked [id number] Sex Female Hospital Discharge Instructions Should you have any questions prior to discharge, please contact a member of your healthcare team. If you have left the hospital and have any questions, please contact your primary care physician. Reason For Referral No Data Found Plan of Treatment US Echo With Color (48558) 04/21/2024 NM Spect Perf Rest Stress Multi (72504) 06/02/2024 Stress Test Chemical 06/02/2024 NM Spect Perf Rest Stress Multi (44758) 06/02/2024 Stress Test Chemical 06/02/2024 Encounters Encounter Diagnosis Start Date Code Code Sys tem Heart failure, unspecified 06/02/2024 S NOMED-CT Personal Care Team Section Performer Name Performer Role Active Date Inactive EDDIE Harry PCP - Primary care physician 2024-04-20 2
--- OUTSIDE RECORDS SUMMARY | 2024-08-31 14:50 | XMS_ITS | Encounter Summary ---
Author Organization [facility] Address [address] [place] [address] Care Team Providers Care Entry Level Finance Name Role Phone Ricci Marshall MD Unavailable Unavailab Júnior Huynh DO Primary Care Provider [phone] Eun Hu MD Unavailable [phone] Encounter Details Date Type Department Care Team (Late st Contact Info) Description 02/13/2016 Abstract [facility] [address] [place] [address] Ricci Marshall MD Social History Tobacco Use Types Packs/Day Years Used Date Smoking Tobacco: Never Alcohol Use Standard Drinks/Week Comments No 0 (1 standard drink = 0.6 oz pur e alcohol) Comments Unknown Sex and Gender Information Value Date Recorded Sex Assigned at Not on file Legal Sex Female 6:12 PM CDT Gender Identity Female 08/05/2021 11:22 AM FLOOD CONTROL ENGINEER Sexual Orientation Straight 08/05/2021 11 :22 AM FLOOD CONTROL ENGINEER Occupation Industry Job Start Date Job End Date retired Not on file Not on file Not on file documented as of this encounter Plan of Treatment Not on file documented as of this encounter Visit Diagnoses Not on filedocumented in this encounter Additional Health Concerns Infection Onset Date Last Indicated Resolved Time COVID-19 Rule Out 08/06/2021 08/06/2021 08/06/2021 2:29 PM FLOOD CONTROL ENGINEER documented as of this encounter Care Teams Entry Level Finance Relationship Specialty Start Date End Date Júnior Leung DO [address] [place] [address] PCP - General FAMILY PRACTICE 07/11/20 Ricci Marshall MD CARDIOVASCULAR DISEASE 02/13/16 07/10/20 Eun Hu MD [address] [place] [phone] INTERVENTIONAL CARDIOLOGY 07/11/20 documented as of this encounter
--- OUTSIDE RECORDS SUMMARY | 2024-08-31 14:51 | XMS_ITS | Encounter Summary ---
Author Organization [facility] Address [facility] [place] [address] Care Team Providers Care Formal Waiter/Waitress Name Role Phone Scottnick Júnior DURON Primary Care Provider [phone] Eun Hu MD Unavailable [phone] Encounter Details Date Type Department Care Team (Late st Contact Info) Description 01/10/[address] [facility] Anesthesia [address] [place] [address] Gay Guevara Anesthesia Record Procedure Summary Procedure [...] CDT Gender Identity Female 08/05/2021 11:22 AM TRAINING DEVELOPMENT SPECIALIST Sexual Orientation Straight 08/05/2021 11 :22 AM TRAINING DEVELOPMENT SPECIALIST Occupation Industry Job Start Date Job [...] Rule Out 08/06/2021 08/06/2021 08/06/2021 2:29 PM TRAINING DEVELOPMENT SPECIALIST documented as of this encounter Care Teams Formal Waiter/Waitress Relationship Specialty Start Date End Date Júnior Leung DO [address] [place] [address] PCP - General FAMILY PRACTICE 07/11/20 Eun Hu MD [address] [place] [address] INTERVENTIONAL CARDIOLOGY 07/11/20 documented as of this encounter
--- OUTSIDE RECORDS SUMMARY | 2024-08-31 14:51 | XMS_ITS | Encounter Summary ---
Author Organization [facility] Address [address] [place] [address] Care Team Providers Care Motor Analyst Name Role Phone Júnior Leung Primary Care Provider Eun Hu MD Unavailable [phone] Encounter Details Date Type Department Care Team (Late st Contact Info) Description 01/08/2021 Prep for Procedure [facility] [address] [place] [address] Eun Hu MD [address] [place] [address] Social History Tobacco Use Types Packs/Day Years Used Date Smoking Tobacco: Never Smokeless Tobacco: Never Alcohol Use Standard Drinks/Week Comments No 0 (1 standard drink = 0.6 oz pur e alcohol) Comments Unknown Sex and Gender Information Value Date Recorded Sex Assigned at Not on file Legal Sex Female 6:12 PM CDT Gender Identity Female 08/05/2021 11:22 AM CONSUMER AFFAIRS DIRECTOR Sexual Orientation Straight 08/05/2021 11 :22 AM CONSUMER AFFAIRS DIRECTOR Occupation Industry Job Start Date Job End [...] Rule Out 08/06/2021 08/06/2021 08/06/2021 2:29 PM CONSUMER AFFAIRS DIRECTOR documented as of this encounter Care Teams Motor Analyst Relationship Specialty Start Date End Date Júnior Leung DO [address] [place] [address] PCP - General FAMILY PRACTICE 07/11/20 Eun Hu MD [address] [place] [phone] INTERVENTIONAL CARDIOLOGY 07/11/20 documented as of this encounter
--- OUTSIDE RECORDS SUMMARY | 2024-08-31 14:51 | XMS_ITS ---
Author Organization Unknown Address [address] [place] [phone] Phone Care Team Providers Care Maintenance Supervisor 2Nd Shift Name Role Phone JADEN CLYDE Attending Unavailable [facility] Primary Unavailable Immunization Immunization Date Status Additional [...] Smoking History Unknown if ever smoked [id number] Sex Female Hospital Discharge Instructions Should you have any questions prior to discharge, please contact a member of your healthcare team. If you have left the hospital and have any questions, please contact your primary care physician. Reason For Referral No Data Found Plan of Treatment US Echo With Color (54315) 04/21/2024 NM Spect Perf Rest Stress Multi (14943) 06/02/2024 Stress Test Chemical 06/02/2024 NM Spect Perf Rest Stress Multi (71888) 06/02/2024 Stress Test Chemical 06/02/2024 Encounters Encounter Diagnosis Start Date Code Code Sys tem Heart failure, unspecified 03/15/2024 S NOMED-CT Personal Care Team Section Performer Name Performer Role Active Date Inactive EDDIE Harry PCP - Primary care physician 2024-04-20 2
--- OUTSIDE RECORDS SUMMARY | 2024-08-31 14:51 | XMS_ITS | Encounter Summary ---
Author Organization [facility] Address [facility] [place] [address] Care Team Providers Care Bass Guitar Teacher Name Role Phone Scottnick Júnior DURON Primary Care Provider [phone] Eun Hu MD Unavailable Encounter Details Date Type Department Care Team (Late st Contact Info) Description 08/07/2021 Hospital Orders Only [facility] Anesthesia [address] [place] [address] Gay Guevara Anesthesia Record Procedure Summary Procedure [...] CDT Gender Identity Female 08/05/2021 11:22 AM SIGNS AND DISPLAYS SALESPERSON Sexual Orientation Straight 08/05/2021 11 :22 AM SIGNS AND DISPLAYS SALESPERSON Occupation Industry Job Start Date Job End Date retired Not on file Not on file Not on file COVID-19 Exposure Response Date Recorded In the last month, have you been in contact with someone who was confirmed or suspected to have Coronavirus / COVID-19? No / Unsure 08/08/2021 7:06 AM SIGNS AND DISPLAYS SALESPERSON documented as of this encounter Functional Status documented as of this encounter Mental Status * Question Answer Entry Date Author Status Because of a physical, mental, or emotional condition, do you have serious difficulty concentrating, remembering, or making decisions? No 08/08/2021 1:49 PM SIGNS AND DISPLAYS SALESPERSON Mackenzie Mendez RN Active documented in this encounter Plan of Treatment Not on file documented as of this encounter Visit Diagnoses Not on filedocumented in this encounter Care Teams Bass Guitar Teacher Relationship Specialty Start Date End Date Júnior Leung DO [address] [place] [address] PCP - General FAMILY PRACTICE 07/11/20 Eun Hu MD [address] [place] [address] INTERVENTIONAL CARDIOLOGY 07/11/20 documented as of this encounter
== END 2024-08-31 14:48 | disposition home or self-care (01) ==
PROVIDERS: PCP Family Medicine; Visit Provider Family Medicine
DX: M79.89 Other specified soft tissue disorders (principal)
CPT/HCPCS: 93971

== ENCOUNTER 2024-09-15 10:07 | Outpatient (CLI) | payer OTHER, SELFPAY ==
[2024-09-15 10:25] LABS: Creatinine Urine 53.11 mg/dL (40-278); MALB Creatinine Ratio 24.4 mg/g (0-30); Microalbumin Urine Random < 13.0 mg/L
[2024-09-15 10:33] LABS: Alanine Aminotransferase 38 U/L (14-59); Albumin Level 3.8 g/dL (3.4-5.0); Alkaline Phosphatase 89 U/L (46-116); Anion Gap 12 mmol/L (4-12); Aspartate Amino Transferase 33 U/L (15-37); Bilirubin,Total 0.9 mg/dL (0.00-1.00); Blood Urea Nitrogen 19 mg/dL (7-18); Calcium 8.7 mg/dL (8.5-10.1); Carbon Dioxide 29 mmol/L (21-32); Chloride 101 mmol/L (98-108); Estimated Glomerular Filt Rate 45; Glucose 255 mg/dL (70-99); Osmolality Calculated 305 mOsm/kg (285-295); Potassium 3.6 mmol/L (3.5-5.1); Sodium 142 mmol/L (136-145)
== END 2024-09-15 10:08 | disposition home or self-care (01) ==
LOC: CHSLAB 10:08
PROVIDERS: PCP Nurse Practitioner Family; Visit Provider Nurse Practitioner Family
DX: R74.8 Abnormal levels of other serum enzymes (principal); N18.30 Chronic kidney disease, stage 3 unspecified; E11.9 Type 2 diabetes mellitus without complications; Z79.01 Long term (current) use of anticoagulants
CPT/HCPCS: 36415; 80053; 82043; 85610

== ENCOUNTER 2024-09-19 08:32 | Outpatient (CLI) | payer OTHER, SELFPAY | END 2024-09-19 08:33 | disposition home or self-care (01) | PROVIDERS: PCP Family Medicine; Visit Provider Family Medicine | DX: Z12.31 Encounter for screening mammogram for malignant neoplasm of breast (principal) | CPT/HCPCS: 77063; 77067 ==

== ENCOUNTER 2024-11-08 16:54 | Emergency (ER) | payer OTHER, SELFPAY ==
--- NOTE | ~2024-11-08 | CT_ITS ---
CLINICAL INDICATION: Shortness of breath and abdominal pain COMPARISON: 10/24/2018. TECHNIQUE: An enhanced CT of the abdomen and pelvis was performed utilizing multislice spiral Link To Media ue reconstructed at 5 mm slice thickness. Coronal and sagittal reconstructions were performed. This CT examination was performed utilizing dose reduction techniques. DLP: 1599 mGy-cm FINDINGS/OBSERVATIONS: Lung: Small left-sided pleural effusion with adjacent compressive atelectasis. The remainder of the lungs are clear. The heart is enlarged, with a moderate pericardial effusion. Mediastinum: No pathologically enlarged or morphologically suspicious lymph nodes are identified within the medias tinum, bilateral axilla, within the soft tissues of the anterior chest wall. Soft tissues of the chest: Unremarkable. Bones of the chest: No acute fracture. No lytic or blastic lesions are identified. Liver: The liver demonstrates fatty infiltration and is enlarged. Gallbladder and biliary system: The gallbladder is surgically absent. Pancreas: The pancreas enhances homogeneously, without ductal dilatation. Spleen: The spleen enhances homogeneously, and is not enlarged Kidneys: The bilateral kidneys enhance symmetrically without hydronephrosis or renal calculi. Adrenal glands: Unremarkable. Gastrointestinal tract: Small hiatal hernia is present. Colonic diverticulosis without surrounding inflammatory change Appendix: The appendix is not definitively visualized. However, no pericecal inflammatory change is identified suggest the presence of acute appendicitis. Vasculature: Calcified atherosclerotic disease is present. No aneurysmal dilatation. Lymph nodes: Scattered nonpathologically enlarged lymph nodes within the root of the mesentery and deep in the pel vis. Pelvic structures:Visualization of the deep pelvis is limited secondary to streak metallic artifact f rom left hip prosthetic. The bladder is distended and otherwise unremarkable. The uterus is anteverted and anteflexed and markedly enlarged for a patient of this age. Global enlargement of the bilateral ovaries are also detected. Body wall and musculoskeletal: Fat-containing umbilical hernia. Age appropriate degenerative disease within the thoracic and lumbosacral spines. IMPRESSION: Small left-sided pleural effusion with adjacent compressive atelectasis. Small pericardial effusion. Global enlargement of the bilateral ovaries and uterus, abnormal for a patient of this age. Fatty infiltration of an enlarged liver. Reviewed, dictated and finalized at location A.
[2024-11-08 16:59] VITALS: BP 148/69; PULSE 91; RESP 26; TEMP 36.7; O2SAT 94
--- NOTE | 2024-11-08 17:09 | ECG_ITS ---
Test Date: 2024-11-08 17:22:37 Measurements Intervals [place] Rate: 82 P: 0 WA: 0 QRS: 58 QRSD: 106 T: 54 QT: 369 QTc: 431 Interpretive Statements ATRIAL FIBRILLATION DELAYED PRECORDIAL R/S TRANSITION MINIMAL Q WAVES- INFERIOR LEADS ABNORMAL ECG Compared to ECG 02/15/2024 10:57:16 No significant changes Electronically Signed On 11-08-2024 19:05:05 CDT by Shaggy Jimenez D.O.
--- NOTE | 2024-11-08 17:11 | ED.GENADULT ---
HPI - General Adult General Chief complaint: Neck Pain/Injury Stated complaint: neck pain Time Seen by Provider: 11/08/24 16:59 History of Present Illness HPI narrative: Columba is a 69F with a PMH of DMII, HTN, Afib, OA, and gout that presented to the ED with pain in her LUQ. She had neck pain for a few days which went away then she started having some worsening dyspnea and LUQ pain last night and was very nauseated this morning, but did not vomit. No diarrhea, chest pain, or lightheadedness. Related Data Home Medications ?Medication ?Instructions ?Recorded ?Confirmed ?Last Taken ?Type digoxin 125 mcg (0.125 mg) tablet 125 mcg PO DAILY 05/18/24 10/04/24 Unknown History metoprolol tartrate 100 mg tablet mg PO DAILY 08/30/24 10/04/24 Unknown History Allergies Allergy/AdvReac Type Severity Reaction Status Date / Time No Known Allergies Allergy Verified 11/08/24 17:03 Review of Systems Review of Systems: All systems reviewed & are unremarkable except as noted in HPI and below [facility] Past Medical History Medical History Chronic obstructive pulmonary disease Heart failure with reduced ejection fraction and diastolic dysfunction EF was 40 to 45% on echo in September 2022. Type 2 diabetes mellitus Chronic kidney disease, stage 3 Gout Chronic anticoagulation Paroxysmal atrial fibrillation History of cardioversion and ablation. Hyperlipidemia Hypertension Surgical History Surgical History History of cataract extraction History of cardiac radiofrequency ablation History of total left hip arthroplasty History of cholecystectomy History of surgical removal of lesion Family History Family History Sibling Lung cancer Sibling Diabetes mellitus Hypertension Sibling Acute myocardial infarction Mother Enoc disease Sibling Accidental Social History Social History Social History: Surrogate medical decision maker: Lauren Zimmer, niece. Code status: Full code. Smoking status: Never smoker Second hand tobacco smoke exposure: Yes Alcohol intake: never Substance use: never Substance use type: does not use Do You Feel Safe in your Home?: Yes Lack of Transportation: YES Lack of Food: Never True Current Housing: I Have Housing Concerned About Future Housing: No Difficulty Paying Gas/Electric Bills: No Difficulty Paying for Meds: No Currently Unemployed: Decline to Answer Education: High School Diploma/GED Difficulty w/ Childcare or Family Care: No Living arrangements: with family Additional living arrangements comments: Daughter is staying with her right now. 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 Spiritual care concerns: No Exam Const: General: cooperative, healthy appearing, comfortable, no acute distress, well developed, alert, awake and Physically active Orientation/consciousness: oriented to person, oriented to place and oriented to time HENMT: Head: normal to inspection, normocephalic and atraumatic Ears: hearing grossly normal bilaterally and external ears normal Face/Nose/Sinus: Normal external nose present Eyes: General: appearance normal, both eyes and all related structures Periorbital: periorbital findings normal Sclera: sclerae normal Pupils: Equal, round and reactive pupils present Neck: Neck: normal visual inspection Chest: Chest palpation & inspection: normal inspection of the chest Resp: Effort & Inspection: normal respiratory effort, able to speak in complete sentences and no respiratory distress Auscultation: clear to auscultation bilaterally Other: Tachypnea Cardio: Jugular venous distension: no JVD Rate: regular rate Rhythm: regular rhythm GI: Inspection: normal to inspection GI Palp: Yes Soft to palpation Auscultation: normal bowel sounds Other: TTP in the LUQ. No guarding or rebound tenderness. Skin: General skin exam: normal color and no rashes or lesions noted Neuro: General: oriented to person, oriented to place and oriented to time Cranial nerves: Yes Equal, round and reactive pupils present Extrem: General: normal to inspection Course Course Emergency Course: Ordered labs and EKG EKG showed afib with a rate of 82, no ST elevation/depression Labs showed leukocytosis, elevated troponin and CRP, as well as elevated glucose and bili. CLINICAL INDICATION: Shortness of breath and abdominal pain COMPARISON: 10/24/2018. TECHNIQUE: An enhanced CT of the abdomen and pelvis was performed utilizing multislice spiral technique reconstructed at 5 mm slice thickness. Coronal and sagittal reconstructions were performed. This CT examination was performed utilizing dose reduction techniques. DLP: 1599 mGy-cm FINDINGS/OBSERVATIONS: Lung: Small left-sided pleural effusion with adjacent compressive atelectasis. The remainder of the lungs are clear. The heart is enlarged, with a moderate pericardial effusion. Mediastinum: No pathologically enlarged or morphologically suspicious lymph nodes are identified within the mediastinum, bilateral axilla, within the soft tissues of the anterior chest wall. Soft tissues of the chest: Unremarkable. Bones of the chest: No acute fracture. No lytic or blastic lesions are identified. Liver: The liver demonstrates fatty infiltration and is enlarged. Gallbladder and biliary system: The gallbladder is surgically absent. Pancreas: The pancreas enhances homogeneously, without ductal dilatation. Spleen: The spleen enhances homogeneously, and is not enlarged Kidneys: The bilateral kidneys enhance symmetrically without hydronephrosis or renal calculi. Adrenal glands: Unremarkable. Gastrointestinal tract: Small hiatal hernia is present. Colonic diverticulosis without surrounding inflammatory change Appendix: The appendix is not definitively visualized. However, no pericecal inflammatory change is identified suggest the presence of acute appendicitis. Vasculature: Calcified atherosclerotic disease is present. No aneurysmal dilatation. Lymph nodes: Scattered nonpathologically enlarged lymph nodes within the root of the mesentery and deep in the pelvis. Pelvic structures:Visualization of the deep pelvis is limited secondary to streak metallic artifact from left hip prosthetic. The bladder is distended and otherwise unremarkable. The uterus is anteverted and anteflexed and markedly enlarged for a patient of this age. Global enlargement of the bilateral ovaries are also detected. Body wall and musculoskeletal: Fat-containing umbilical hernia. Age appropriate degenerative disease within the thoracic and lumbosacral spines. IMPRESSION: Small left-sided pleural effusion with adjacent compressive atelectasis. Small pericardial effusion. Global enlargement of the bilateral ovaries and uterus, abnormal for a patient of this age. Fatty infiltration of an enlarged liver. Given elevated BNP and effusions will start lasix Contacted [facility] for transfer. I spoke with Dr. Greenberg who accepted the transfer to an IMU bed. Vital Signs Vital signs: Vital Signs Temperature 98.1 F 11/08/24 16:59 Pulse Rate 91 11/08/24 16:59 Respiratory Rate 26 H 11/08/24 16:59 Blood Pressure 148/69 H 11/08/24 16:59 Pulse Oximetry 94 11/08/24 16:59 Oxygen Delivery Room Air 11/08/24 16:59 Temperature 98.1 F 11/08/24 16:59 Pulse Rate 91 11/08/24 16:59 Respiratory Rate 26 H 11/08/24 16:59 Blood Pressure 148/69 H 11/08/24 16:59 Pulse Oximetry 94 11/08/24 16:59 Oxygen Delivery Room Air 11/08/24 16:59 Medical Decision Making Vital Signs Vital Signs: Vital Signs Temperature 98.1 F 11/08/24 16:59 Pulse Rate 91 11/08/24 16:59 Respiratory Rate 26 H 11/08/24 16:59 Blood Pressure 148/69 H 11/08/24 16:59 Pulse Oximetry 94 11/08/24 16:59 Oxygen Delivery Room Air 11/08/24 16:59 Temperature 98.1 F 11/08/24 16:59 Pulse Rate 91 11/08/24 16:59 Respiratory Rate 26 H 11/08/24 16:59 Blood Pressure 148/69 H 11/08/24 16:59 Pulse Oximetry 94 11/08/24 16:59 Oxygen Delivery Room Air 11/08/24 16:59 Lab Data 11/08/24 17:18 11/08/24 17:18 Labs: Lab Results 11/08/24 11/08/24 11/08/24 Range/Units 17:18 18:36 18:38 WBC 15.7 H (4.8-10.8) K/mm3 RBC 4.54 (4.20-5.40) M/mm3 Hgb 13.7 (11.7-13.8) g/dL Hct 40.6 (35.0-42.0) % MCV 89.4 (78.0-102.0) fL MCH 30.2 (27.0-31.0) pg MCHC 33.7 (32-36) g/dL RDW 14.0 (11.6-14.4) % Plt Count 219 (150-420) K/mm3 MPV 11.1 (9.2-11.8) fl Immature Gran % (Auto) 0.6 H (0.0-0.0) % Neut % (Auto) 87.3 H (50.0-70.0) % Lymph % (Auto) 5.2 L (18.0-42.0) % [place] % (Auto) 6.6 (2.0-11.0) % Eos % (Auto) 0.0 L (1.0-6.0) % Baso % (Auto) 0.3 (0.0-1.0) % Lymph # (Auto) 0.82 L (1.10-4.50) K/mm3 [place] # (Auto) 1.04 H (0.10-0.90) K/mm3 Eos # (Auto) 0.00 L (0.02-0.50) K/mm3 Baso # (Auto) 0.04 (0.00-0.10) K/mm3 Abs Immat Gran (auto) 0.10 H (0.00-0.00) K/mm3 Absolute Neuts (auto) 13.69 H (1.70-7.20) K/mm3 Absolute Nucleated RBC 0.00 (0.00-0.00) K/mm3 Nucleated RBC % 0.0 (0-0.0) % Sodium 133 L (136-145) mmol/L Potassium 3.3 L (3.5-5.1) mmol/L Chloride 95 L (98-108) mmol/L Carbon Dioxide 27 (21-32) mmol/L Anion Gap 11 (4-12) mmol/L BUN 19 H (7-18) mg/dL Creatinine 1.50 H (0.55-1.02) mg/dL Estim Creat Clear Calc 39 ml/min Estimated GFR 34 L (59 - ) Glucose 428 H* (70-99) mg/dL POC Capillary Glucose 364 H (65-105) mg/dl Calculated Osmolality 296 H (285-295) mOsm/kg Lactic Acid 2.7 H (0.4-2.0) mmol/L Calcium 8.8 (8.5-10.1) mg/dL Total Bilirubin 2.1 H (0.00-1.00) mg/dL AST 31 (15-37) U/L ALT 37 (14-59) U/L Alkaline Phosphatase 87 (46-116) U/L Troponin I 76.6 H* (0.00-60.4) ng/L C-Reactive Protein 23.1 H (0.0-0.9) mg/dL NT-Pro-B Natriuret Pep 2285 H (0-125) pg/mL Total Protein 7.8 (6.4-8.2) g/dL Albumin 3.4 (3.4-5.0) g/dL Lipase 22 (16-77) U/L Urine Color Light yellow (Yellow) Urine Appearance Clear (Clear) Urine pH 5.5 (5.0-8.0) Ur Specific [place] 1.010 (1.010-1.020) Urine Protein Negative (Negative) Urine Glucose (UA) 3+ H (Negative) Urine Ketones Negative (Negative) Ur Blood (Man) Negative (Negative) Urine Nitrate Negative (Negative) Urine Bilirubin Negative (Negative) Urine Urobilinogen 0.2 (0.2-1.0) mg/dL Leukocyte Esterase Rfl Trace H (Negative) JASMINA/UL Urine RBC 0-2 (0-2) /hpf Urine WBC 0-3 (0-3) /hpf Ur Squamous Epith Cells Few (Few) /hpf Urine Bacteria Trace (None) /hpf 11/08/24 11/08/24 Range/Units 19:28 19:39 WBC (4.8-10.8) K/mm3 RBC (4.20-5.40) M/mm3 Hgb (11.7-13.8) g/dL Hct (35.0-42.0) % MCV (78.0-102.0) fL MCH (27.0-31.0) pg MCHC (32-36) g/dL RDW (11.6-14.4) % Plt Count (150-420) K/mm3 MPV (9.2-11.8) fl Immature Gran % (Auto) (0.0-0.0) % Neut % (Auto) (50.0-70.0) % Lymph % (Auto) (18.0-42.0) % [place] % (Auto) (2.0-11.0) % Eos % (Auto) (1.0-6.0) % Baso % (Auto) (0.0-1.0) % Lymph # (Auto) (1.10-4.50) K/mm3 [place] # (Auto) (0.10-0.90) K/mm3 Eos # (Auto) (0.02-0.50) K/mm3 Baso # (Auto) (0.00-0.10) K/mm3 Abs Immat Gran (auto) (0.00-0.00) K/mm3 Absolute Neuts (auto) (1.70-7.20) K/mm3 Absolute Nucleated RBC (0.00-0.00) K/mm3 Nucleated RBC % (0-0.0) % Sodium (136-145) mmol/L Potassium (3.5-5.1) mmol/L Chloride (98-108) mmol/L Carbon Dioxide (21-32) mmol/L Anion Gap (4-12) mmol/L BUN (7-18) mg/dL Creatinine (0.55-1.02) mg/dL Estim Creat Clear Calc ml/min Estimated GFR (59 - ) Glucose (70-99) mg/dL POC Capillary Glucose 326 H (65-105) mg/dl Calculated Osmolality (285-295) mOsm/kg Lactic Acid 3.1 H (0.4-2.0) mmol/L Calcium (8.5-10.1) mg/dL Total Bilirubin (0.00-1.00) mg/dL AST (15-37) U/L ALT (14-59) U/L Alkaline Phosphatase (46-116) U/L Troponin I (0.00-60.4) ng/L C-Reactive Protein (0.0-0.9) mg/dL NT-Pro-B Natriuret Pep (0-125) pg/mL Total Protein (6.4-8.2) g/dL Albumin (3.4-5.0) g/dL Lipase (16-77) U/L Urine Color (Yellow) Urine Appearance (Clear) Urine pH (5.0-8.0) Ur Specific [place] (1.010-1.020) Urine Protein (Negative) Urine Glucose (UA) (Negative) Urine Ketones (Negative) Ur Blood (Man) (Negative) Urine Nitrate (Negative) Urine Bilirubin (Negative) Urine Urobilinogen (0.2-1.0) mg/dL Leukocyte Esterase Rfl (Negative) JASMINA/UL Urine RBC (0-2) /hpf Urine WBC (0-3) /hpf Ur Squamous Epith Cells (Few) /hpf Urine Bacteria (None) /hpf Discharge Plan Discharge Clinical Impression: CHF (congestive heart failure), Elevated troponin Patient Disposition: Acute Care Hospital Condition: Serious Patient Language: Serbian Prescriptions: No Action (DME) blood-glucose meter Kit See Rx Instructions .Route Qty: 1 0RF Rx Instructions: As directed torsemide 100 mg tablet 100 mg PO QAM Qty: 90 3RF metoprolol tartrate 100 mg tablet PO DAILY Mounjaro 2.5 mg/0.5 mL pen injector 2.5 mg subcut WEEKLY Qty: 2 0RF Rx Instructions: *SAMPLE* LOT: [id number] EXP: 01/20/26 4 PENS GIVEN amlodipine 10 mg tablet 10 mg PO DAILY Qty: 90 3RF Breztri Aerosphere 160-9-4.8 mcg/actuation HFA aerosol inhaler 2 inh inhalation QAM AND QPM Qty: 10.7 2RF Rx Instructions: *SAMPLE* LOT: [id number] EXP: 03/2027 [facility]: 8293-1432-61 2 BOXES GIVEN digoxin 125 mcg (0.125 mg) tablet 125 mcg PO DAILY (DME) lancets Misc See Rx Instructions .Route Qty: 100 0RF Rx Instructions: As directed (DME) blood-glucose meter Kit See Rx Instructions .Route Qty: 1 0RF Rx Instructions: As directed albuterol sulfate 90 mcg/actuation HFA aerosol inhaler 1 inh inhalation Q4H PRN (Reason: shortness of breath or wheezing) Qty: 8.5 0RF gabapentin 300 mg capsule See Rx Instructions .ROUTE .COMPLEX Qty: 270 0RF Dose Instruction: TAKE 1 CAPSULE BY MOUTH THREE TIMES A DAY Rx Instructions: TAKE 1 CAPSULE BY MOUTH THREE TIMES A DAY (DME) lancets Misc See Rx Instructions .Route Qty: 200 2RF Rx Instructions: As directed (DME) lancets [OneTouch Delica Plus Lancet] 30 gauge misc See Rx Instructions .ROUTE .COMPLEX Qty: 100 2RF Dose Instruction: TEST DAILY DIRECTED Rx Instructions: Test blood sugar three times daily allopurinol 100 mg tablet See Rx Instructions .ROUTE .COMPLEX Qty: 180 0RF Dose Instruction: TAKE 2 TABLETS BY MOUTH TWO TIMES A DAY Rx Instructions: TAKE 2 TABLETS BY MOUTH TWO TIMES A DAY apixaban 5 mg tablet 5 mg PO BID Qty: 90 0RF (DME) OneTouch Verio test strips Strip See Rx Instructions .ROUTE .COMPLEX Qty: 100 4RF Dose Instruction: TEST DAILY DIRECTED Rx Instructions: TEST DAILY DIRECTED Follow-up/Referrals: Júnior Leung, [Primary Care Provider] -
[2024-11-08 17:23] LABS: Basophils Absolute Auto 0.04 K/mm3 (0.00-0.10); Basophils Percent Auto 0.3 % (0.0-1.0); Hematocrit 40.6 % (35.0-42.0); Hemoglobin 13.7 g/dL (11.7-13.8); Immature Granulocyte Percent A 0.6 % (0.0-0.0); Lymphocytes Absolute Auto 0.82 K/mm3 (1.10-4.50); Lymphocytes Percent Auto 5.2 % (18.0-42.0); Mean Corpuscular HGB Conc 33.7 g/dL (32-36); Mean Corpuscular Hemoglobin 30.2 pg (27.0-31.0); Mean Corpuscular Volume 89.4 fL (78.0-102.0); Mean Platelet Volume 11.1 fl (9.2-11.8); Monocytes Absolute Auto 1.04 K/mm3 (0.10-0.90); Monocytes Percent Auto 6.6 % (2.0-11.0); Neutrophils Absolute Auto 13.69 K/mm3 (1.70-7.20); Neutrophils Percent Auto 87.3 % (50.0-70.0); Platelet Count Result 219 K/mm3 (150-420); Red Blood Count 4.54 M/mm3 (4.20-5.40); White Blood Count 15.7 K/mm3 (4.8-10.8)
[2024-11-08 17:41] LABS: Lactic Acid Reflex 2.7 mmol/L (0.4-2.0)
[2024-11-08 17:48] LABS: Alanine Aminotransferase 37 U/L (14-59); Albumin Level 3.4 g/dL (3.4-5.0); Alkaline Phosphatase 87 U/L (46-116); Anion Gap 11 mmol/L (4-12); Aspartate Amino Transferase 31 U/L (15-37); Bilirubin,Total 2.1 mg/dL (0.00-1.00); Blood Urea Nitrogen 19 mg/dL (7-18); Calcium 8.8 mg/dL (8.5-10.1); Carbon Dioxide 27 mmol/L (21-32); Chloride 95 mmol/L (98-108); Estimated CRCL calculation 39 ml/min; Estimated Glomerular Filt Rate 34; Lipase 22 U/L (16-77); Osmolality Calculated 296 mOsm/kg (285-295); Potassium 3.3 mmol/L (3.5-5.1); Sodium 133 mmol/L (136-145); Total Protein 7.8 g/dL (6.4-8.2)
[2024-11-08 17:49] LABS: Glucose 428 mg/dL (70-99)
[2024-11-08 17:50] LABS: CRP 23.1 mg/dL (0.0-0.9); Troponin I 76.6 ng/L (0.00-60.4)
[2024-11-08] MEDS: HYDROcodone/acetaminophen (*CRX) 5-325 MG TABLET 1 TAB PO (18:02)
[2024-11-08] MEDS: INSULIN HUMAN REGULAR (*BKC) 1,000 UNITS/10 ML VIAL 10 UNITS IV PUSH (18:04)
--- OUTSIDE RECORDS SUMMARY | 2024-11-08 18:20 | XMS_ITS | Clinical Summary ---
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 [employer] Sexual Orientation Straight 08/05/2021 11 :22 AM [employer]PERATOR [employer] Occupation Industry Job Start Date Job End Date retired Not on file Not on file Not on file Last Filed Vital Signs Vital Sign Reading Time Taken Comments Blood Pressure 141/88 10/02/2021 9:52 AM CDT Pulse 73 10/02/2021 9:51 AM CDT Temperature 36.5 C (97.7 F) 08/10/2021 7:52 AM [employer]ATOR [employer] Respiratory Rate 20 10/02/2021 9:51 AM CDT [...] 1993 Zoster Vaccines (1 of 2) 09/18/2003 Annual Medicare Wellness Visit 2018 Dexa Scan (General) 2018 Pneumococcal Vaccine: 50+ Years (2 of 2 - PPSV23) 12/25/2020 12/26/2019, 07/05/2019 COVID-19 Vaccine (3 - 2023-2 5 season) 2024 12/15/2020, 11/17/2020 RSV Immunization or 60+ Years (1 - 1-dose 75+ series) 2028 Meningococcal B Vaccine Aged Out No l onger eligible based on patient's age to complete this topic Meningococcal Vaccine Aged Out No rajiv leo eligible based on patient's age to complete this topic RSV Immunizations Under 20 Months Aged Out No longer eligible b ased on patient's age to complete this topic Insurance * Guarantor: Bipin Columba A Account Type Relation to Patient Date of Phone Billing Address Personal/Family Self 1955 [address] [place] [address] MEDICAID [employer] Advance Directives * Full Code (Latest Code Status on File) Date Activated Date Inactivated Comments 08/08/2021 12:28 PM 08/10/2021 1:35 PM Care Teams Manager Sterile Processing Relationship Specialty Start Date End Date Júnior Leung DO [address] [place] [address] PCP - General FAMILY PRACTICE 07/11/20 Eun Hu MD [address] [place] [address] INTERVENTIONAL CARDIOLOGY 07/11/20
--- OUTSIDE RECORDS SUMMARY | 2024-11-08 18:20 | XMS_ITS ---
Author Organization Unknown Address [address] [place] [phone] Phone Care Team Providers Care Case Management Associate Name Role Phone JADEN CLYDE Attending Unavailable [facility] Primary Unavailable Immunization Immunization Date Status [...] Smoking History Unknown if ever smoked [id number] Sex Female Hospital Discharge Instructions Should you have any questions prior to discharge, please contact a member of your healthcare team. If you have left the hospital and have any questions, please contact your primary care physician. Reason For Referral No Data Found Plan of Treatment US Echo With Color (11653) 04/21/2024 NM Spect Perf Rest Stress Multi (29451) 06/02/2024 Stress Test Chemical 06/02/2024 NM Spect Perf Rest Stress Multi (96837) 06/02/2024 Stress Test Chemical 06/02/2024 Encounters Encounter Diagnosis Start Date Code Code Sys tem Unspecified systolic (congestive) heart failure 2023 SNOMED-CT Personal Care Team Section Performer Name Performer Role Active Date Inactive EDDIE Harry PCP - Primary care physician 2024-04-2 2
--- OUTSIDE RECORDS SUMMARY | 2024-11-08 18:20 | XMS_ITS ---
Author Organization Unknown Address [address] [place] [phone] Phone Care Team Providers Care Metal Shaping Machine Operator Name Role Phone JADEN CLYDE Attending Unavailable [facility] Primary Unavailable Immunization Immunization Date Status [...] Smoking History Unknown if ever smoked [id number] Sex Female Hospital Discharge Instructions Should you have any questions prior to discharge, please contact a member of your healthcare team. If you have left the hospital and have any questions, please contact your primary care physician. Reason For Referral No Data Found Plan of Treatment US Echo With Color (02866) 04/21/2024 NM Spect Perf Rest Stress Multi (46435) 06/02/2024 Stress Test Chemical 06/02/2024 NM Spect Perf Rest Stress Multi (16795) 06/02/2024 Stress Test Chemical 06/02/2024 Encounters Encounter Diagnosis Start Date Code Code Sys tem Heart failure, unspecified 06/02/2024 S NOMED-CT Personal Care Team Section Performer Name Performer Role Active Date Inactive EDDIE Harry PCP - Primary care physician 2024-04-20 2
--- OUTSIDE RECORDS SUMMARY | 2024-11-08 18:20 | XMS_ITS ---
Author Organization Unknown Address [address] [place] [phone] Phone Care Team Providers Care Patient Relations Director Name Role Phone JADEN CLYDE Attending Unavailable [facility] Primary Unavailable Immunization Immunization Date [...] Smoking History Unknown if ever smoked [id number] Sex Female Hospital Discharge Instructions Should you have any questions prior to discharge, please contact a member of your healthcare team. If you have left the hospital and have any questions, please contact your primary care physician. Reason For Referral No Data Found Plan of Treatment US Echo With Color (63820) 04/21/2024 NM Spect Perf Rest Stress Multi (44720) 06/02/2024 Stress Test Chemical 06/02/2024 NM Spect Perf Rest Stress Multi (71111) 06/02/2024 Stress Test Chemical 06/02/2024 Encounters Encounter Diagnosis Start Date Code Code Sys tem Unspecified atrial fibrillation 04/21/2024 SNOMED-CT Personal Care Team Section Performer Name Performer Role Active Date Inactive EDDIE Harry PCP - Primary care physician 2023-10-2 2 Imaging Narrative Notes [facility] 04/26/2024 14:[address] [address] RADIOLOGY REPORT Patient Number: [id number] Patient Name: ASHA MARTINEZ Type: O/P MR Number: [id number] : 1955 Age: 68 Sex: F Room #: Admit Date: 04/21/24 Discharge Date 04/21/24 Ordering Physician: JADEN TANG Family Physician: NO PCP Second Physician: X-Ray Number : [id number] US ECHO W/ COLOR [id number] COMPLETE:04/21/24 13:28 [facility] [id number] (REASON-ECHO COMPLTE: ATRIAL FIBRILLATION See Scanned Image Attachment for Report Dictated By: Heraclio Initials: Trans Date: 04/26/24 14:43 <<REPDIST>>
--- OUTSIDE RECORDS SUMMARY | 2024-11-08 18:20 | XMS_ITS | Encounter Summary ---
Author Organization [facility] Address [address] [place] [address] Care Team Providers Care Camera Maker Name Role Phone Ricci Marshall MD Unavailable Unavailab Júnior Huynh DO Primary Care Provider [phone] Eun Hu MD Unavailable [phone] Encounter Details Date Type Department Care Team (Late st Contact Info) Description 02/13/2016 [facility] [address] [place] [address] Ricci Marshall MD Social History Tobacco Use Types Packs/Day Years Used Date Smoking Tobacco: Never Alcohol Use Standard Drinks/Week Comments No 0 (1 standard drink = 0.6 oz pur e alcohol) Comments Unknown Sex and Gender Information Value Date Recorded Sex Assigned at Not on file Legal Sex Female 6:12 PM CDT Gender Identity Female 08/05/2021 11:22 AM SUSTAINABILITY MANAGER Sexual Orientation Straight 08/05/2021 11 :22 AM SUSTAINABILITY MANAGER Occupation Industry Job Start Date Job End Date retired Not on file Not on file Not on file documented as of this encounter Plan of Treatment Not on file documented as of this encounter Visit Diagnoses Not on filedocumented in this encounter Additional Health Concerns Infection Onset Date Last Indicated Resolved Time COVID-19 Rule Out 08/06/2021 08/06/2021 08/06/2021 2:29 PM SUSTAINABILITY MANAGER documented as of this encounter Care Teams Camera Maker Relationship Specialty Start Date End Date Júnior Leung DO [address] [place] [address] PCP - General FAMILY PRACTICE 07/11/20 Ricci Marshall MD CARDIOVASCULAR DISEASE 02/13/16 07/10/20 Eun Hu MD [address] [place], [place] [id number] INTERVENTIONAL CARDIOLOGY 07/11/20 documented as of this encounter
--- OUTSIDE RECORDS SUMMARY | 2024-11-08 18:20 | XMS_ITS | Encounter Summary ---
Author Organization [facility] Address [address] [place] [address] Care Team Providers Care Spot Facer Name Role Phone Júnior Leung DO Primary Care Provider [phone] Eun Hu MD Unavailable [phone] Encounter Details Date Type Department Care Team (Late st Contact Info) Description 10/29/2021 Abstract [facility] [address] Sara Stewart, [facility]- [address] [place] [address] Social History Tobacco Use Types Packs/Day Years Used Date Smoking Tobacco: Never Smokeless Tobacco: Never Alcohol Use Standard Drinks/Week Comments No 0 (1 standard drink = 0.6 oz pur e alcohol) Comments Unknown Sex and Gender Information Value Date Recorded Sex Assigned at Not on file Legal Sex Female 6:12 PM CDT Gender Identity Female 08/05/2021 11:22 AM RIFLE CASE REPAIRER Sexual Orientation Straight 08/05/2021 11 :22 AM RIFLE CASE REPAIRER Occupation Industry Job Start Date Job End [...] Assessment Author Status No 08/08/2021 1:49 PM RIFLE CASE REPAIRER Activ e * RETIRED Are you blind or do you have serious difficulty seeing, even when wearing glasses? Answer Date of Assessment Author Status No 08/08/2021 1:49 PM RIFLE CASE REPAIRER Activ e * Do you have serious difficulty walking or climbing stairs? Answer Date of Assessment Author Status No 08/08/2021 1:49 PM RIFLE CASE REPAIRER Mackenzie Mendez R N Active * Do you have difficulty dressing or bathing? Answer Date of Assessment Author Status No 08/08/2021 1:49 PM RIFLE CASE REPAIRER Mackenzie Mendez R N Active * Because of a physical, mental, or emotional condition, do you have difficulty doing errands alone such as visiting a doctor's office or shopping? Answer Date of Assessment Author Status No 08/08/2021 1:49 PM RIFLE CASE REPAIRER Mackenzie Mendez R N Active documented as of this encounter Mental Status * Because of a physical, mental, or emotional condition, do you have serious difficulty concentrating, remembering, or making decisions? Answer Entry Date Author Status No 08/08/2021 1:49 PM RIFLE CASE REPAIRER Mackenzie Mendez R N Active documented in this encounter Plan of Treatment Not on file documented as of this encounter Procedures Procedure Name Priority Date/Time Associated Diagnosis Comments PROTHROMBIN TIME, VENOUS Routine 10/25/2021 Paroxysmal atrial fibrillation documented in this encounter Results * PROTHROMBIN TIME, VENOUS (10/25/2021) PROTIME WHOLE BLOOD 31.9 INR WHOLE BLOOD 3.20 10/25/2021 Sara Stewart [facility] Final Res ult documented in this encounter Visit Diagnoses Diagnosis Paroxysmal atrial fibrillation ([facility]/HCC HHS/HCC) Atrial fibrillation documented in this encounter Care Teams Spot Facer Relationship Specialty Start Date End Date Júnior Leung DO [address] [place] [address] PCP - General FAMILY PRACTICE 07/11/20 Eun Hu MD [address] [place] [address] INTERVENTIONAL CARDIOLOGY 07/11/20 documented as of this encounter
--- OUTSIDE RECORDS SUMMARY | 2024-11-08 18:21 | XMS_ITS | Encounter Summary ---
Author Organization [facility] Address [facility] [place] [address] Care Team Providers Care Benefits Processor Name Role Phone Scottnick Júnior DURON Primary Care Provider [phone] Eun Hu MD Unavailable [phone] Encounter Details Date Type Department Care Team (Late st Contact Info) Description 08/07/2021 Hospital Orders Only [facility] [address] [place] [address] Gay Guevara Anesthesia Record Procedure Summary Procedure [...] CDT Gender Identity Female 08/05/2021 11:22 AM TAXONOMY TEACHER Sexual Orientation Straight 08/05/2021 11 :22 AM TAXONOMY TEACHER Occupation Industry Job Start Date Job End Date retired Not on file Not on file Not on file COVID-19 Exposure Response Date Recorded In the last month, have you been in contact with someone who was confirmed or suspected to have Coronavirus / COVID-19? No / Unsure 08/08/2021 7:06 AM TAXONOMY TEACHER documented as of this encounter Functional Status * Calculated C-SSRS Risk Score (Lifetime/Recent) Answer Date of Assessment Author Status No Risk Indicated 08/08/2021 7:22 AM TAXONOMY TEACHER Ching Taylor RN Active * [place] Suicide Severity Rating Scale (Screener/Recent Self-Report) Question Answer Date of Assessment Author Status 1. Wish to be (Past 1 Month) No 08/08/2021 7:22 AM TAXONOMY TEACHER Jennyfer Taylor RN Act yenny 2. Non-Specific Active Suicidal Thoughts (Past 1 Month) No 08/08/2021 7:22 AM TAXONOMY TEACHER Jennyfer Taylor RN Act yenny 6. Suicidal Behavior (Lifetime) No 08/08/2021 7:22 AM TAXONOMY TEACHER Jennyfer Taylor RN Act yenny documented as of this encounter Mental Status * Question Answer Entry Date Author Status Because of a physical, mental, or emotional condition, do you have serious difficulty concentrating, remembering, or making decisions? No 08/08/2021 1:49 PM TAXONOMY TEACHER Mackenzie Mendez RN Active documented in this encounter Plan of Treatment Not on file documented as of this encounter Visit Diagnoses Not on filedocumented in this encounter Care Teams Benefits Processor Relationship Specialty Start Date End Date Júnior Leung DO [address] [place] [address] PCP - General FAMILY PRACTICE 07/11/20 Eun Hu MD [address] [place] [address] INTERVENTIONAL CARDIOLOGY 07/11/20 documented as of this encounter
--- OUTSIDE RECORDS SUMMARY | 2024-11-08 18:21 | XMS_ITS | Encounter Summary ---
Author Organization [facility] Address [address] [place] [address] Care Team Providers Care Photonic Laboratory Technician Name Role Phone Scottnick Júnior DURON Primary Care Provider [phone] Eun Hu MD Unavailable [phone] Encounter Details Date Type Department Care Team (Late st Contact Info) Description 01/10/2021 Hospital Orders Only [facility] [address] [place] [address] Gay Guevara Anesthesia Record Procedure Summary Procedure [...] CDT Gender Identity Female 08/05/2021 11:22 AM BRAND ENGINEER Sexual Orientation Straight 08/05/2021 11 :22 AM BRAND ENGINEER Occupation Industry Job Start Date Job [...] Rule Out 08/06/2021 08/06/2021 08/06/2021 2:29 PM BRAND ENGINEER documented as of this encounter Care Teams Photonic Laboratory Technician Relationship Specialty Start Date End Date Júnior Leung DO [address] [place] [address] PCP - General FAMILY PRACTICE 07/11/20 Eun Hu MD [address] [place] [address] INTERVENTIONAL CARDIOLOGY 07/11/20 documented as of this encounter
--- OUTSIDE RECORDS SUMMARY | 2024-11-08 18:21 | XMS_ITS ---
Author Organization Unknown Address [address] [place] [phone] Phone Care Team Providers Care Transfer Car Operator Name Role Phone JADEN CLYDE Attending [...] Smoking History Unknown if ever smoked [id number] Sex Female Hospital Discharge Instructions Should you have any questions prior to discharge, please contact a member of your healthcare team. If you have left the hospital and have any questions, please contact your primary care physician. Reason For Referral No Data Found Plan of Treatment US Echo With Color (03218) 04/21/2024 NM Spect Perf Rest Stress Multi (53013) 06/02/2024 Stress Test Chemical 06/02/2024 NM Spect Perf Rest Stress Multi (14807) 06/02/2024 Stress Test Chemical 06/02/2024 Encounters Encounter Diagnosis Start Date Code Code Sys tem Heart failure, unspecified 03/15/2024 S NOMED-CT Personal Care Team Section Performer Name Performer Role Active Date Inactive EDDIE Harry PCP - Primary care physician 2024-04-20 2
--- OUTSIDE RECORDS SUMMARY | 2024-11-08 18:21 | XMS_ITS ---
Author Organization Unknown Address [address] [place] [phone] Phone Care Team Providers Care Candy Butcher Name Role Phone JADEN CLYDE Attending Unavailable [facility] Primary Unavailable Immunization Immunization Date Status Additional [...] Smoking History Unknown if ever smoked [id number] Sex Female Hospital Discharge Instructions Should you have any questions prior to discharge, please contact a member of your healthcare team. If you have left the hospital and have any questions, please contact your primary care physician. Reason For Referral No Data Found Plan of Treatment US Echo With Color (76483) 04/21/2024 NM Spect Perf Rest Stress Multi (49549) 06/02/2024 Stress Test Chemical 06/02/2024 NM Spect Perf Rest Stress Multi (72009) 06/02/2024 Stress Test Chemical 06/02/2024 Personal Care Team Section Performer Name Performer Role Active Date Inactive EDDIE Harry PCP - Primary care physician 2024-04-2 2
--- OUTSIDE RECORDS SUMMARY | 2024-11-08 18:21 | XMS_ITS | Encounter Summary ---
Author Organization [facility] Address [address] [place] [address] Care Team Providers Care Ux Design Lead Name Role Phone Júnior Leung Primary Care Provider [phone] Eun Hu MD Unavailable [phone] Encounter Details Date Type Department Care Team ([facility] st Contact Info) Description 01/08/2021 [facility] [address] [place] [id number] Eun Hu MD [address] [place] [address] Social History Tobacco Use Types Packs/Day Years Used Date Smoking Tobacco: Never Smokeless Tobacco: Never Alcohol Use Standard Drinks/Week Comments No 0 (1 standard drink = 0.6 oz pur e alcohol) Comments Unknown Sex and Gender Information Value Date Recorded Sex Assigned at Not on file Legal Sex Female 6:12 PM CDT Gender Identity Female 08/05/2021 11:22 AM DIRECTOR OF HOUSING AND ENERGY SERVICES Sexual Orientation Straight 08/05/2021 11 :22 AM DIRECTOR OF HOUSING AND ENERGY SERVICES Occupation Industry Job Start Date Job End [...] 08/06/2021 08/06/2021 08/06/2021 2:29 PM DIRECTOR OF HOUSING AND ENERGY SERVICES documented as of this encounter Care Teams Ux Design Lead Relationship Specialty Start Date End Date Júnior Leung DO [address] [place] [address] PCP - General FAMILY PRACTICE 07/11/20 Eun Hu MD [address] [place] [address] INTERVENTIONAL CARDIOLOGY 07/11/20 documented as of this encounter
[2024-11-08 18:26] LABS: NT Pro B Type Natriuretic Pept 2285 pg/mL (0-125)
--- OUTSIDE RECORDS SUMMARY | 2024-11-08 18:28 | XMS_ITS ---
Author Organization Unknown Address [address] [place] [phone] Phone Care Team Providers Care Dredge Hand Name Role Phone JADEN CLYDE Attending Unavailable [facility] Primary Unavailable Immunization Immunization Date Status Additional [...] Smoking History Unknown if ever smoked [id number] Sex Female Hospital Discharge Instructions Should you have any questions prior to discharge, please contact a member of your healthcare team. If you have left the hospital and have any questions, please contact your primary care physician. Reason For Referral No Data Found Plan of Treatment US Echo With Color (11707) 04/21/2024 NM Spect Perf Rest Stress Multi (37810) 06/02/2024 Stress Test Chemical 06/02/2024 NM Spect Perf Rest Stress Multi (54518) 06/02/2024 Stress Test Chemical 06/02/2024 Encounters Encounter Diagnosis Start Date Code Code Sys tem Unspecified atrial fibrillation 04/21/2024 SNOMED-CT Personal Care Team Section Performer Name Performer Role Active Date Inactive EDDIE Harry PCP - Primary care physician 2023-10-2 2 Imaging Narrative Notes [facility] 04/26/2024 14:[address] [address] RADIOLOGY REPORT Patient Number: [id number] Patient Name: ASHA MARTINEZ Type: O/P MR Number: [id number] : 1955 Age: 68 Sex: F Room #: Admit Date: 04/21/24 Discharge Date 04/21/24 Ordering Physician: JADEN TANG Family Physician: NO PCP Second Physician: X-Ray Number : [id number] US ECHO W/ COLOR [id number] COMPLETE:04/21/24 13:28 [facility] [id number] (REASON-ECHO COMPLTE: ATRIAL FIBRILLATION See Scanned Image Attachment for Report Dictated By: Heraclio Initials: Trans Date: 04/26/24 14:43 <<REPDIST>>
--- OUTSIDE RECORDS SUMMARY | 2024-11-08 18:28 | XMS_ITS ---
Author Organization Unknown Address [address] [place] [phone] Phone Care Team Providers Care Learning Designer Name Role Phone JADEN CLYDE Attending Unavailable [facility] Primary Unavailable Immunization Immunization Date Status [...] Smoking History Unknown if ever smoked [id number] Sex Female Hospital Discharge Instructions Should you have any questions prior to discharge, please contact a member of your healthcare team. If you have left the hospital and have any questions, please contact your primary care physician. Reason For Referral No Data Found Plan of Treatment US Echo With Color (51368) 04/21/2024 NM Spect Perf Rest Stress Multi (38482) 06/02/2024 Stress Test Chemical 06/02/2024 NM Spect Perf Rest Stress Multi (90184) 06/02/2024 Stress Test Chemical 06/02/2024 Encounters Encounter Diagnosis Start Date Code Code Sys tem Unspecified systolic (congestive) heart failure 2023 SNOMED-CT Personal Care Team Section Performer Name Performer Role Active Date Inactive EDDIE Harry PCP - Primary care physician 2024-04-2 2
--- OUTSIDE RECORDS SUMMARY | 2024-11-08 18:28 | XMS_ITS ---
Author Organization Unknown Address [address] [place] [phone] Phone Care Team Providers Care Workers Compensation Claims Supervisor Name Role Phone JADEN CLYDE Attending Unavailable [facility] Primary Unavailable Immunization Immunization Date Status [...] Smoking History Unknown if ever smoked [id number] Sex Female Hospital Discharge Instructions Should you have any questions prior to discharge, please contact a member of your healthcare team. If you have left the hospital and have any questions, please contact your primary care physician. Reason For Referral No Data Found Plan of Treatment US Echo With Color (41616) 04/21/2024 NM Spect Perf Rest Stress Multi (34346) 06/02/2024 Stress Test Chemical 06/02/2024 NM Spect Perf Rest Stress Multi (42947) 06/02/2024 Stress Test Chemical 06/02/2024 Personal Care Team Section Performer Name Performer Role Active Date Inactive EDDIE Harry PCP - Primary care physician 2024-04-2 2
--- OUTSIDE RECORDS SUMMARY | 2024-11-08 18:28 | XMS_ITS ---
Author Organization Unknown Address [address] [place] [phone] Phone Care Team Providers Care Assurance Senior Manager Name Role Phone JADEN CLYDE Attending Unavailable [facility] Primary Unavailable Immunization Immunization Date Status [...] Smoking History Unknown if ever smoked [id number] Sex Female Hospital Discharge Instructions Should you have any questions prior to discharge, please contact a member of your healthcare team. If you have left the hospital and have any questions, please contact your primary care physician. Reason For Referral No Data Found Plan of Treatment US Echo With Color (42856) 04/21/2024 NM Spect Perf Rest Stress Multi (51711) 06/02/2024 Stress Test Chemical 06/02/2024 NM Spect Perf Rest Stress Multi (19672) 06/02/2024 Stress Test Chemical 06/02/2024 Encounters Encounter Diagnosis Start Date Code Code Sys tem Heart failure, unspecified 03/15/2024 S NOMED-CT Personal Care Team Section Performer Name Performer Role Active Date Inactive EDDIE Harry PCP - Primary care physician 2024-04-20 2
--- OUTSIDE RECORDS SUMMARY | 2024-11-08 18:28 | XMS_ITS ---
Author Organization Unknown Address [address] [place] [phone] Phone Care Team Providers Care Control Room Tender Name Role Phone JADEN CLYDE Attending Unavailable [facility] Primary Unavailable Immunization Immunization Date Status [...] Smoking History Unknown if ever smoked [id number] Sex Female Hospital Discharge Instructions Should you have any questions prior to discharge, please contact a member of your healthcare team. If you have left the hospital and have any questions, please contact your primary care physician. Reason For Referral No Data Found Plan of Treatment US Echo With Color (11815) 04/21/2024 NM Spect Perf Rest Stress Multi (95028) 06/02/2024 Stress Test Chemical 06/02/2024 NM Spect Perf Rest Stress Multi (90335) 06/02/2024 Stress Test Chemical 06/02/2024 Encounters Encounter Diagnosis Start Date Code Code Sys tem Heart failure, unspecified 06/02/2024 S NOMED-CT Personal Care Team Section Performer Name Performer Role Active Date Inactive EDDIE Harry PCP - Primary care physician 2024-04-20 2
[2024-11-08 18:40] LABS: Glucose Point of Care 364 mg/dl (65-105)
[2024-11-08 18:42] LABS: Add Urine Microscopic? YES; Appearance Urine Clear (Clear); Bilirubin Urine Negative (Negative); Blood Urine Negative (Negative); Color Urine Light Yellow (Yellow); Glucose Urine UA 3+ (Negative); Ketones Urine Negative (Negative); Leukocyte Esterase Ur Trace LEU/UL (Negative); Nitrate Urine Negative (Negative); Protein Urine Negative (Negative); Urobilinogen Urine 0.2 mg/dL (0.2-1.0); pH Urine 5.5 (5.0-8.0)
[2024-11-08 18:48] LABS: Bacteria Urine Trace /hpf; RBC Urine 0-2 /hpf (0-2); Squamous Epithelial Cell Urine Few /hpf (Few); WBC Urine 0-3 /hpf (0-3)
[2024-11-08 19:00] VITALS: BP 122/75; PULSE 89; RESP 18; O2SAT 93
[2024-11-08 19:20] LABS: Reflex Lactic Acid Yes or No Add Lactic
[2024-11-08] MEDS: FUROSEMIDE INJ 40 MG/4 ML VIAL IV PUSH (19:34)
[2024-11-08 19:41] LABS: Glucose Point of Care 326 mg/dl (65-105)
[2024-11-08 19:49] LABS: Lactic Acid 3.1 mmol/L (0.4-2.0)
[2024-11-08 20:00] VITALS: BP 119/59; PULSE 96; RESP 20; O2SAT 90
[2024-11-08] MEDS: MORPHINE SULFATE (*CRX) 2 MG/ML INJ IV PUSH (20:54)
[2024-11-08 21:00] VITALS: BP 119/75; PULSE 93; RESP 22; O2SAT 89
[2024-11-08 22:00] VITALS: BP 138/85; PULSE 94; RESP 22; O2SAT 91
--- NOTE | 2024-11-08 22:21 | PC.NURSE ---
daughter asked if patient could take her home medications, ERP aware, stated that patient is ok to take her night time medications, however no Noro at this time.
[2024-11-08 22:30] VITALS: BP 145/90; PULSE 112; RESP 20; O2SAT 91
[2024-11-08 22:41] LABS: Troponin I 80.5 ng/L (0.00-60.4)
[2024-11-08 22:44] LABS: Glucose Point of Care 388 mg/dl (65-105)
[2024-11-08] MEDS: INSULIN HUMAN REGULAR (*BKC) 1,000 UNITS/10 ML VIAL 5 UNITS IV PUSH (22:52)
== END 2024-11-08 23:32 | disposition short-term general hospital (02) ==
PROVIDERS: Emergency Provider Family Medicine; PCP Family Medicine
DX: I13.0 Hypertensive heart and chronic kidney disease with heart failure and stage 1 through stage 4 chronic kidney disease, or unspecified chronic kidney disease (principal); E11.22 Type 2 diabetes mellitus with diabetic chronic kidney disease; N18.30 Chronic kidney disease, stage 3 unspecified; I50.9 Heart failure, unspecified; R79.89 Other specified abnormal findings of blood chemistry; I48.0 Paroxysmal atrial fibrillation; J44.9 Chronic obstructive pulmonary disease, unspecified
CPT/HCPCS: 36415; 71260; 74177; 80053; 81001; 82948; 83605; 83690; 83880; 84484; 85025; 86140; 93005; 96374; 96375; 99285; A9270; J1815; J1938; J2270; Q9967

== ENCOUNTER 2024-11-09 07:26 | Inpatient (IN) | payer OTHER, SELFPAY ==
[2024-11-09] VITALS (31 sets, daily range): BP systolic 124–150; BP diastolic 69–97; PULSE 72–118; RESP 18–35; TEMP 36.3–37; O2SAT 90–96; BMI 48.4
--- NOTE | 2024-11-09 | ECHO_ITS ---
Patient Info Name: Columba Voss Age: 69 years : 1955 Gender: Female Ht: 63 in Wt: 273 lbs BSA: 2.42 m2 HR: 95 bpm BP: 150 / 97 mmHg Heart Rhythm: Atrial Fibrillation Technical Quality: Fair Exam Date: 11/09/2024 10:04 AM Exam Location: Echo Lab Patient Status: Inpatient Admit Date: 11/09/2024 Staff Ordering Physician: Talia Cruz MD Holter Scanning Technician: Starr Suh RDCS Attending Provider: Talia Cruz MD Exam Type: CA echo doppler color flow Study Info Indications - Pericardial effusion Complete two-dimensional, color flow and Doppler transthoracic echocardiogram is performed. Summary 1. Complete two-dimensional, color flow and Doppler transthoracic echocardiogram is performed. 2. Left ventricular chamber dimension is normal. 3. Left ventricular systolic function is normal, estimated at 60-65%. 4. The left ventricular diastolic function is abnormal. 5. E/e' 16 is elevated. 6. Atrial fibrillation. 7. Left atrial chamber dimension is moderately enlarged. 8. Right atrial chamber dimension is mildly enlarged. 9. There is mild aortic valve sclerosis. 10. There is trace mitral valve regurgitation. 11. No pulmonary hypertension, estimated pulmonary arterial systolic pressure is 30 mmHg. 12. There is trivial pericardial effusion. Left Ventricle E/e' 16 is elevated. Atrial fibrillation. Left ventricular chamber dimension is normal. Left ventricular systolic function is normal, estimated at 60-65%. The left ventricular diastolic function is abnormal. Right Ventricle Right ventricular systolic function is normal and with normal TAPSE 1.8 cm. Right ventricular chamber dimension is normal. Left Atria Left atrial chamber dimension is moderately enlarged. Right Atria Right atrial chamber dimension is mildly enlarged. Aortic Valve The aortic valve is probable trileaflet. There is mild aortic valve sclerosis. There is no aortic valve stenosis. There is no aortic valve regurgitation. Pulmonic Valve There is no pulmonic regurgitation. Mitral Valve There is no mitral valve stenosis. There is trace mitral valve regurgitation. Tricuspid Valve There is no tricuspid valve regurgitation. No pulmonary hypertension, estimated pulmonary arterial systolic pressure is 30 mmHg. Pericardium/Pleural There is trivial pericardial effusion. Inferior Vena Cava Normal inferior vena cava with >50% collapse upon inspiration consistent with normal right atrial pressure, 5 mmHg. Aorta The aortic root size at the sinus of Valsalva is normal. Left Ventricular Outflow Tract Name Value Normal LVOT 2D LVOT Diameter 2.0 cm LVOT Doppler LVOT Peak Gradient 4 mmHg LVOT Mean Gradient 2 mmHg LVOT VTI 17 cm LVOT VTI/AV VTI Ratio 0.7 LVOT Stroke Volume 54 ml LVOT CO 6.5 l/min LVOT CI 2.7 l/min/m2 Pulmonic Valve Name Value Normal RVOT Doppler RVOT Peak Gradient 4 mmHg PV Doppler PV Peak Gradient 5 mmHg Mitral Valve Name Value Normal MV Doppler MV Decel Power 692 cm/s2 MV PHT 60 ms MV Area (PHT) 3.7 cm2 4.0-5.0 MV Diastolic Function MV E Peak Velocity 143 cm/s MV A Peak Velocity 1 cm/s MV E/A 220.3 MV Decel Time 206 ms MV Annular TDI MV E/e' (Septal) 18.8 <=8.0 MV E/e' (Lateral) 14.1 <=8.0 MV E/e' (Average) 16.5 Tricuspid Valve Name Value Normal TV Regurgitation Doppler TR Peak Velocity 248 cm/s TR Peak Gradient 25 mmHg Estimated PAP/RSVP RA Pressure 5 mmHg <=5 PA Systolic Pressure 30 mmHg <36 RV Systolic Pressure 30 mmHg <36 Aortic Valve Name Value Normal AV Doppler AV Peak Velocity 175 cm/s AV Peak Gradient 12 mmHg AV Mean Gradient 6 mmHg AV VTI 25 cm AV Area (Cont Eq VTI) 2.2 cm2 >=3.0 AV Area (Cont Eq Alan) 3.3 cm2 AV Regurgitation 2D LVOT Area 3.2 cm2 Ventricles Name Value Normal LV Dimensions 2D/MM IVS Diastolic Thickness (2D) 1.1 cm 0.6-1.0 LVID Diastole (2D) 4.9 cm 3.8-5.2 LVIW Diastolic Thickness (2D) 0.9 cm 0.6-0.9 LVID Systole (2D) 3.3 cm 2.2-3.5 LVOT Diameter 2.0 cm LV Mass (2D Cubed) 179.95 g 67.00-162.00 LV Mass Index (2D Cubed) 74 g/m2 43-95 Relative Wall Thickness (2D) 0.37 LV Fractional Shortening/Ejection Fraction 2D/MM LV Fractional Shortening (2D) 33 % 27-45 LV EF (2D Teicholz) 62 % 54-74 LV Diastolic Volume (4C MOD) 101 ml LV EF (4C MOD) 71 % LV Diastolic Volume (2C MOD) 97 ml LV EF (2C MOD) 63 % LV Diastolic Volume (BP MOD) 99 ml 46-106 LV Diastolic Volume Index (BP MOD) 41 ml/m2 29-61 LV Systolic Volume (BP MOD) 34 ml 14-42 LV Systolic Volume Index (BP MOD) 14 ml/m2 8-24 LV EF (BP MOD) 66 % 54-74 LV Diastolic Length (4C) 8.0 cm LV Systolic Length (4C) 6.3 cm LV Stroke Volume (4C MOD) 72 ml Atria Name Value Normal LA Dimensions LA Volume (4C A-L) 100 ml LA Volume (BP A-L) 77 ml RA Dimensions RA Area (4C) 23.2 cm2 <=18.0 Report Signatures
--- NOTE | ~2024-11-09 | XR_ITS ---
Portable chest x-ray Comparison: 11/09/2024 Clinical History: Increased work of breathing Findings: Moderate bilateral pleural effusions are present, markedly increased from prior exam. Ther e is mild to moderate pulmonary edema with bibasilar atelectatic change. Cardiomediastinal silhouett e is stable. Bones and soft tissues are unremarkable. Impression: Moderate bilateral pleural effusions are significantly increased, with moderate pulmonary edema and b ibasilar atelectatic change. Reviewed, dictated and finalized at location M. Impression: Moderate bilateral pleural effusions are significantly increased, with moderate pulmonary edema and bibasilar atelectatic change.
--- NOTE | ~2024-11-09 | XR_ITS ---
XR chest 1V portable 11/09/2024 08:21 Indication: Shortness of breath Procedure: AP portable chest Comparison: 08/30/2024 Findings: Moderate cardiomegaly. Mild interstitial edema. No significant effusion. No pneumothorax. N o acute osseous abnormality. Impression: 1: Cardiomegaly with mild interstitial edema. Reviewed, dictated and finalized at location A. Impression: 1: Cardiomegaly with mild interstitial edema.
--- NOTE | ~2024-11-09 | US_ITS ---
EXAMINATION: US venous doppler [facility] DATE: 11/09/2024 16:02 INDICATION: Lower extremity swelling TECHNIQUE: Grayscale ultrasound images without and with compression and Doppler ultrasound images of the bilateral lower extremity veins were obtained. COMPARISON: 08/31/2024 and 05/17/2021. FINDINGS: The visualized portions of right common femoral vein, profunda (deep) femoral vein, femoral vein, pop liteal vein, peroneal veins, posterior tibial veins, and greater saphenous vein outflow are patent. The visualized portions of left common femoral vein, profunda femoral vein, femoral vein, popliteal v ein and greater saphenous vein outflow are patent. Noncompressibility and absence of flow are identified within the posterior tibial and peroneal veins in the left lower extremity. IMPRESSION: 1. No deep venous thrombosis within the right lower extremity. 2.. Venous thrombosis of the posterior tibial and peroneal veins in the left lower extremity. Reviewed, dictated and finalized at location A. IMPRESSION: 1. No deep venous thrombosis within the right lower extremity. 2.. Venous thrombosis of the posterior tibial and peroneal veins in the left lo wer extremity.
--- NOTE | ~2024-11-09 | XR_ITS ---
XR chest 1V portable Ordering provider: Efrain Hassan MD History: 69 years Female with . CHF, effusions . Comparison: November 11, 2024 FINDINGS: MEDIASTINUM: The cardiac silhouette is moderately enlarged. Congestive mary. LUNGS: No pneumothorax. Bibasilar opacification with highly suggestive pleural effusion. Opacificatio n also seen in the mid and upper zones with interstitial thickening. OTHER: No free air under the diaphragm. Degenerative spine. IMPRESSION: Cardiomegaly with cardiac decompensation and pulmonary edema. Superimposed pneumonia is highly suggestive more prominent in the lower lobes. Bilateral pleural effu siena more on the right side Reviewed, dictated and finalized at location A. IMPRESSION: Cardiomegaly with cardiac decompensation and pulmonary edema. Superimposed pneumonia is highly suggestive more prominent in the lower lobes. Bilateral pleural effusion more on the right side
--- NOTE | ~2024-11-09 | US_ITS ---
US pelvic complete Ordering provider: Sheryl Macario History: . Global enlargement bilateral ovaries/uter/ pain . Comparison: None. Technique: Transabdominal ultrasound of the pelvis (Doppler ultrasound interrogation techniques used as needed for this exam.) FINDINGS: CERVIX: Normal. UTERUS: Measures 11.6x 5.8x 6.7 cm in length which is within normal limits and is anteverted. No mary metrial masses. ENDOMETRIUM: Heterogeneous endocrine tissue. CUL DE SAC: No free fluid. RIGHT OVARY: Not seen. LEFT OVARY: Not seen. ADNEXA: Normal. No mass. IMPRESSION: Heterogeneous endometrial tissue which may indicate endometrial masses ,debris or hematoma. Further e valuation advised. Otherwise, normal pelvic ultrasound. Reviewed, dictated and finalized at location A. IMPRESSION: Heterogeneous endometrial tissue which may indicate endometrial masses ,debris or hematoma. Further evaluation advised. Otherwise, normal pelvic ultrasound.
--- NOTE | ~2024-11-09 | CT_ITS ---
Clinical Indication: Shortness of breath CT Scan of the Chest with Contrast: Technique: Contiguous sections were acquired throughout the chest after intravenous administration of 100 cc of Omnipaque 350. Dose reduction technique was used on this scan by utilizing automated expos ure control and iterative reconstruction technique. The dose-length product (DLP) was 551.53 mGy-cm. COMPARISON: 11/08/2024 Findings: There is no evidence of any significant mediastinal, hilar or axillary lymphadenopathy. There is no f illing defect in the pulmonary arterial tree to suggest pulmonary embolus. There is no evidence of ao rtic dissection or aneurysm. Minimal pericardial effusion present. [id number] left pleural effusion and small right pleural effusion present. There is bibasilar atelectasis, left worse than right. Probable mild atelectatic change in the left upper lobe as well. The lungs are clear. No pulmonary nodules or infiltrates are noted. Images through the upper abdomen reveal no abnormalities. Impression: No evidence of pulmonary embolus, aortic dissection, or aortic aneurysm. Minimal pericardial effusion. Small to moderate left pleural effusion and small right pleural effusion, with bilateral atelectatic change, left worse than right. Reviewed, dictated and finalized at [facility]. Impression: No evidence of pulmonary embolus, aortic dissection, or aortic aneurysm. Minimal pericardial effusion. Small to moderate left pleural effusion and small right pleural effusion, with bilateral atelectatic change, left worse than right.
--- NOTE | ~2024-11-09 | MR_ITS ---
EXAMINATION: MR pelvis wo/w con DATE: 11/15/2024 12:33 INDICATION: Endometrial mass TECHNIQUE: Magnetic resonance imaging (MRI) of the pelvis was performed without and with 20 mL ProHan ce intravenous contrast. Full-field sequences of the pelvis included axial and coronal T2-weighted SS FSE, coronal 2D FIESTA, axial T1-weighted FSPGR, axial dual-echo T1-weighted FSPGR and axial T1 weig hted LAVA. Small field of view sequences included axial, sagittal and coronal T2-weighted FSE center ed on the uterus and adnexa. Postcontrast sequences included a time course axial T1-weighted LAVA wi th full-field of view of the pelvis. COMPARISON: Ultrasound dated 11/09/[address] dated 11/08/2024 FINDINGS: Fibroid uterus, the largest at the anterior fundus measuring 5.0 cm. There is a 1.7 x 1.1 cm peduncul ated subserosal fibroid extending into the endometrial canal at the fundus. There are multiple T2 hyp erintense nonenhancing nabothian cysts the cervix the largest measuring 1.6 cm in maximal diameter. 1 cm T2 hyperintense nonenhancing left ovarian cyst. Right ovary is unremarkable. Latter is normal. Vi sualized lower poles of the bilateral kidneys, caudal tip of the right hepatic lobe and visualized lakeisha wels are unremarkable. No free fluid in the pelvis. No pathologically enlarged pelvic or inguinal lym phadenopathy. Metallic magnetic field artifact associated with a left total hip arthroplasty. Severe lumbar spondylosis.. IMPRESSION: 1. Fibroid uterus including a 1.7 x 1.1 cm pedunculated submucosal fibroid extending into the endomet rial canal. 2. 1 cm left ovarian cyst and multiple nabothian cysts at the cervix. Reviewed, dictated and finalized at location B. IMPRESSION: 1. Fibroid uterus including a 1.7 x 1.1 cm pedunculated submucosal fibroid exte nding into the endometrial canal. 2. 1 cm left ovarian cyst and multiple nabothian cysts at the cervix.
--- OUTSIDE RECORDS SUMMARY | 2024-11-09 00:19 | XMS_ITS | Encounter Summary ---
Author Organization [facility] Address [address] [place] [address] Care Team Providers Care Casing Machine Operator Name Role Phone Júnior Leung DO Primary Care Provider [phone] Eun Hu MD Unavailable [phone] Encounter Details Date Type Department Care Team (Late st Contact Info) Description 10/29/2021 Abstract [facility] [address] Sara Stewart, [facility]- [address] [place] [address] Social History Tobacco Use Types Packs/Day Years Used Date Smoking Tobacco: Never Smokeless Tobacco: Never Alcohol Use Standard Drinks/Week Comments No 0 (1 standard drink = 0.6 oz pur e alcohol) Comments Unknown Sex and Gender Information Value Date Recorded Sex Assigned at Not on file Legal Sex Female 6:12 PM CDT Gender Identity Female 08/05/2021 11:22 AM PATIENT ACCOUNTS CLERK Sexual Orientation Straight 08/05/2021 11 :22 AM PATIENT ACCOUNTS CLERK Occupation Industry Job Start Date Job End [...] Assessment Author Status No 08/08/2021 1:49 PM PATIENT ACCOUNTS CLERK Activ e * RETIRED Are you blind or do you have serious difficulty seeing, even when wearing glasses? Answer Date of Assessment Author Status No 08/08/2021 1:49 PM PATIENT ACCOUNTS CLERK Activ e * Do you have serious difficulty walking or climbing stairs? Answer Date of Assessment Author Status No 08/08/2021 1:49 PM PATIENT ACCOUNTS CLERK Mackenzie Mendez R N Active * Do you have difficulty dressing or bathing? Answer Date of Assessment Author Status No 08/08/2021 1:49 PM PATIENT ACCOUNTS CLERK Mackenzie Mendez R N Active * Because of a physical, mental, or emotional condition, do you have difficulty doing errands alone such as visiting a doctor's office or shopping? Answer Date of Assessment Author Status No 08/08/2021 1:49 PM PATIENT ACCOUNTS CLERK Mackenzie Mendez R N Active documented as of this encounter Mental Status * Because of a physical, mental, or emotional condition, do you have serious difficulty concentrating, remembering, or making decisions? Answer Entry Date Author Status No 08/08/2021 1:49 PM PATIENT ACCOUNTS CLERK Mackenzie Mendez R N Active documented in this encounter Plan of Treatment Not on file documented as of this encounter Procedures Procedure Name Priority Date/Time Associated Diagnosis Comments PROTHROMBIN TIME, VENOUS Routine 10/25/2021 Paroxysmal atrial fibrillation documented in this encounter Results * PROTHROMBIN TIME, VENOUS (10/25/2021) PROTIME WHOLE BLOOD 31.9 INR WHOLE BLOOD 3.20 10/25/2021 Sara Stewart [facility] Final Res ult documented in this encounter Visit Diagnoses Diagnosis Paroxysmal atrial fibrillation ([facility]/HCC HHS/HCC) Atrial fibrillation documented in this encounter Care Teams Casing Machine Operator Relationship Specialty Start Date End Date Júnior Leung DO [address] [place] [address] PCP - General FAMILY PRACTICE 07/11/20 Eun Hu MD [address] [place] [address] INTERVENTIONAL CARDIOLOGY 07/11/20 documented as of this encounter
--- OUTSIDE RECORDS SUMMARY | 2024-11-09 00:19 | XMS_ITS ---
Author Organization Unknown Address [address] [place] [phone] Phone Care Team Providers Care Project Engineering Director Name Role Phone JADEN CLYDE Attending Unavailable [facility] Primary Unavailable Immunization Immunization Date Status [...] Smoking History Unknown if ever smoked [id number] Sex Female Hospital Discharge Instructions Should you have any questions prior to discharge, please contact a member of your healthcare team. If you have left the hospital and have any questions, please contact your primary care physician. Reason For Referral No Data Found Plan of Treatment US Echo With Color (50512) 04/21/2024 NM Spect Perf Rest Stress Multi (86077) 06/02/2024 Stress Test Chemical 06/02/2024 NM Spect Perf Rest Stress Multi (54182) 06/02/2024 Stress Test Chemical 06/02/2024 Encounters Encounter Diagnosis Start Date Code Code Sys tem Unspecified systolic (congestive) heart failure 2023 SNOMED-CT Personal Care Team Section Performer Name Performer Role Active Date Inactive EDDIE Harry PCP - Primary care physician 2024-04-2 2
--- OUTSIDE RECORDS SUMMARY | 2024-11-09 00:19 | XMS_ITS | Clinical Summary ---
Author Organization [facility] Address [address] [place] [address] Care Team Providers Care Phlebotomy Services Representative Name Role Phone Scottnick Júnior DURON Primary Care Provider [phone] Eun Hu MD Unavailable [phone] Allergies No known active allergies Medications [...] CDT Gender Identity Female 08/05/2021 11:22 AM ELEVATOR CONDUCTOR Sexual Orientation Straight 08/05/2021 11 :22 AM ELEVATOR CONDUCTOR Occupation Industry Job Start Date Job End Date retired Not on file Not on file Not on file Last Filed Vital Signs Vital Sign Reading Time Taken Comments Blood Pressure 141/88 10/02/2021 9:52 AM CDT Pulse 73 10/02/2021 9:51 AM CDT Temperature 36.5 C (97.7 F) 08/10/2021 7:52 AM ELEVATOR CONDUCTOR Respiratory Rate 20 10/02/2021 9:51 AM CDT [...] Billing Address Personal/Family Self 1955 [address] [place] [address] MEDICAID AET[employer] Advance Directives * Full Code (Latest Code Status on File) Date Activated Date Inactivated Comments 08/08/2021 12:28 PM 08/10/2021 1:35 PM Care Teams Phlebotomy Services Representative Relationship Specialty Start Date End Date Júnior Leung DO [address] [place] [address] PCP - General FAMILY PRACTICE 07/11/20 Eun Hu MD [address] [place] [address] INTERVENTIONAL CARDIOLOGY 07/11/20
--- OUTSIDE RECORDS SUMMARY | 2024-11-09 00:19 | XMS_ITS | Encounter Summary ---
Author Organization [facility] Address [address] [place] [address] Care Team Providers Care Layer Up Name Role Phone Ricci Marshall MD Unavailable Unavailab Júnior Huynh DO Primary Care Provider Eun Hu MD Unavailable [phone] Encounter Details Date Type Department Care Team (Late st Contact Info) Description 02/13/[address] [facility] [address] [place] [address] Ricci Marshall MD Social History Tobacco Use Types Packs/Day Years Used Date Smoking Tobacco: Never Alcohol Use Standard Drinks/Week Comments No 0 (1 standard drink = 0.6 oz pur e alcohol) Comments Unknown Sex and Gender Information Value Date Recorded Sex Assigned at Not on file Legal Sex Female 6:12 PM CDT Gender Identity Female 08/05/2021 11:22 AM CPC CODER Sexual Orientation Straight 08/05/2021 11 :22 AM CPC CODER Occupation Industry Job Start Date Job End Date retired Not on file Not on file Not on file documented as of this encounter Plan of Treatment Not on file documented as of this encounter Visit Diagnoses Not on filedocumented in this encounter Additional Health Concerns Infection Onset Date Last Indicated Resolved Time COVID-19 Rule Out 08/06/2021 08/06/2021 08/06/2021 2:29 PM CPC CODER documented as of this encounter Care Teams Layer Up Relationship Specialty Start Date End Date Júnior Leung DO [address] [place] [address] PCP - General FAMILY PRACTICE 07/11/20 Ricci Marshall MD CARDIOVASCULAR DISEASE 02/13/16 07/10/20 Eun Hu MD [address] [place], [place] [id number] INTERVENTIONAL CARDIOLOGY 07/11/20 documented as of this encounter
--- OUTSIDE RECORDS SUMMARY | 2024-11-09 00:20 | XMS_ITS | Encounter Summary ---
Author Organization [facility] Address [address] [place] [address] Care Team Providers Care Sand Miller Name Role Phone Scottnick Júnior DURON Primary Care Provider [phone] Eun Hu MD Unavailable [phone] Encounter Details Date Type Department Care Team (Late st Contact Info) Description 01/10/2021 Hospital Orders Only [facility] [address] [place] [address] Gay [facility] Record Procedure Summary Procedure [...] CDT Gender Identity Female 08/05/2021 11:22 AM NATIONAL OPELINT ANALYST Sexual Orientation Straight 08/05/2021 11 :22 AM NATIONAL OPELINT ANALYST Occupation Industry Job Start Date Job End [...] Rule Out 08/06/2021 08/06/2021 08/06/2021 2:29 PM NATIONAL OPELINT ANALYST documented as of this encounter Care Teams Sand Miller Relationship Specialty Start Date End Date Júnior Leung DO [address] [place] [address] PCP - General FAMILY PRACTICE 07/11/20 Eun Hu MD [address] [place] [address] INTERVENTIONAL CARDIOLOGY 07/11/20 documented as of this encounter
--- OUTSIDE RECORDS SUMMARY | 2024-11-09 00:20 | XMS_ITS ---
Author Organization Unknown Address [address] [place] [phone] Phone Care Team Providers Care Forensic Locksmith Name Role Phone JADEN CLYDE Attending Unavailable [facility] Primary Unavailable Immunization Immunization Date [...] Smoking History Unknown if ever smoked [id number] Sex Female Hospital Discharge Instructions Should you have any questions prior to discharge, please contact a member of your healthcare team. If you have left the hospital and have any questions, please contact your primary care physician. Reason For Referral No Data Found Plan of Treatment US Echo With Color (33055) 04/21/2024 NM Spect Perf Rest Stress Multi (56437) 06/02/2024 Stress Test Chemical 06/02/2024 NM Spect Perf Rest Stress Multi (65970) 06/02/2024 Stress Test Chemical 06/02/2024 Encounters Encounter Diagnosis Start Date Code Code Sys tem Heart failure, unspecified 06/02/2024 S NOMED-CT Personal Care Team Section Performer Name Performer Role Active Date Inactive EDDIE Harry PCP - Primary care physician 2024-04-20 2
--- OUTSIDE RECORDS SUMMARY | 2024-11-09 00:20 | XMS_ITS | Encounter Summary ---
Author Organization [facility] Address [address] [place] [address] Care Team Providers Care Crew Truck Driver Name Role Phone Júnior Leung Primary Care Provider [phone] Eun Hu MD Unavailable [phone] Encounter Details Date Type Department Care Team ([facility] st Contact Info) Description 01/08/2021 [facility] [address] [place] [phone] Eun Hu MD [address] [place] [address] Social History Tobacco Use Types Packs/Day Years Used Date Smoking Tobacco: Never Smokeless Tobacco: Never Alcohol Use Standard Drinks/Week Comments No 0 (1 standard drink = 0.6 oz pur e alcohol) Comments Unknown Sex and Gender Information Value Date Recorded Sex Assigned at Not on file Legal Sex Female 6:12 PM CDT Gender Identity Female 08/05/2021 11:22 AM COMMERCIAL UNDERWRITER Sexual Orientation Straight 08/05/2021 11 :22 AM COMMERCIAL UNDERWRITER Occupation Industry Job Start Date Job End [...] Rule Out 08/06/2021 08/06/2021 08/06/2021 2:29 PM COMMERCIAL UNDERWRITER documented as of this encounter Care Teams Crew Truck Driver Relationship Specialty Start Date End Date Júnior Leung DO [address] [place] [address] PCP - General FAMILY PRACTICE 07/11/20 Eun Hu MD [address] [place] [address] INTERVENTIONAL CARDIOLOGY 07/11/20 documented as of this encounter
--- OUTSIDE RECORDS SUMMARY | 2024-11-09 00:20 | XMS_ITS | Encounter Summary ---
Author Organization [facility] Address [facility] [place] [address] Care Team Providers Care Temperer Name Role Phone Scottnick Júnior DURON Primary Care Provider [phone] Eun Hu MD Unavailable [phone] Encounter Details Date Type Department Care Team (Late st Contact Info) Description 08/07/2021 Hospital Orders Only [facility] [address] [place] [address] Gay Guevara Anesthesia Record Procedure Summary Procedure [...] CDT Gender Identity Female 08/05/2021 11:22 AM LEAK PATCHER Sexual Orientation Straight 08/05/2021 11 :22 AM LEAK PATCHER Occupation Industry Job Start Date Job End Date retired Not on file Not on file Not on file COVID-19 Exposure Response Date Recorded In the last month, have you been in contact with someone who was confirmed or suspected to have Coronavirus / COVID-19? No / Unsure 08/08/2021 7:06 AM LEAK PATCHER documented as of this encounter Functional Status * Calculated C-SSRS Risk Score (Lifetime/Recent) Answer Date of Assessment Author Status No Risk Indicated 08/08/2021 7:22 AM LEAK PATCHER Ching Taylor RN Active * [place] Suicide Severity Rating Scale (Screener/Recent Self-Report) Question Answer Date of Assessment Author Status 1. Wish to be (Past 1 Month) No 08/08/2021 7:22 AM LEAK PATCHER Jennyfer Taylor RN Act yenny 2. Non-Specific Active Suicidal Thoughts (Past 1 Month) No 08/08/2021 7:22 AM LEAK PATCHER Jennyfer Taylor RN Act yenny 6. Suicidal Behavior (Lifetime) No 08/08/2021 7:22 AM LEAK PATCHER Jennyfer Taylor RN Act yenny documented as of this encounter Mental Status * Question Answer Entry Date Author Status Because of a physical, mental, or emotional condition, do you have serious difficulty concentrating, remembering, or making decisions? No 08/08/2021 1:49 PM LEAK PATCHER Mackenzie Mendez RN Active documented in this encounter Plan of Treatment Not on file documented as of this encounter Visit Diagnoses Not on filedocumented in this encounter Care Teams Temperer Relationship Specialty Start Date End Date Júnior Leung DO [address] [place] [address] PCP - General FAMILY PRACTICE 07/11/20 Eun Hu MD [address] [place] [address] INTERVENTIONAL CARDIOLOGY 07/11/20 documented as of this encounter
--- OUTSIDE RECORDS SUMMARY | 2024-11-09 00:20 | XMS_ITS ---
Author Organization Unknown Address [address] [place] [phone] Phone Care Team Providers Care Mandarin Tutor Name Role Phone JADEN CLYDE Attending Unavailable [facility] Primary Unavailable Immunization Immunization Date Status Additional [...] Smoking History Unknown if ever smoked [id number] Sex Female Hospital Discharge Instructions Should you have any questions prior to discharge, please contact a member of your healthcare team. If you have left the hospital and have any questions, please contact your primary care physician. Reason For Referral No Data Found Plan of Treatment US Echo With Color (91165) 04/21/2024 NM Spect Perf Rest Stress Multi (32920) 06/02/2024 Stress Test Chemical 06/02/2024 NM Spect Perf Rest Stress Multi (78935) 06/02/2024 Stress Test Chemical 06/02/2024 Encounters Encounter Diagnosis Start Date Code Code Sys tem Unspecified atrial fibrillation 04/21/2024 SNOMED-CT Personal Care Team Section Performer Name Performer Role Active Date Inactive EDDIE Harry PCP - Primary care physician 2023-10-2 2 Imaging Narrative Notes [facility] [address] 04/26/2024 14:[address] [address] RADIOLOGY REPORT Patient Number: [id number] Patient Name: ASHA MARTINEZ Type: O/P MR Number: [id number] : 1955 Age: 68 Sex: F Room #: Admit Date: 04/21/24 Discharge Date 04/21/24 Ordering Physician: JADEN TANG Family Physician: NO PCP Second Physician: X-Ray Number : [id number] US ECHO W/ COLOR [id number] COMPLETE:04/21/24 13:28 [facility] [address] (REASON-ECHO COMPLTE: ATRIAL FIBRILLATION See Scanned Image Attachment for Report Dictated By: Heraclio Initials: Trans Date: 04/26/24 14:43 <<REPDIST>>
--- OUTSIDE RECORDS SUMMARY | 2024-11-09 00:20 | XMS_ITS ---
Author Organization Unknown Address [address] [place] [phone] Phone Care Team Providers Care Right Of Way Man Name Role Phone JADEN CLYDE Attending Unavailable [facility] Primary Unavailable Immunization Immunization Date Status Additional [...] Smoking History Unknown if ever smoked [id number] Sex Female Hospital Discharge Instructions Should you have any questions prior to discharge, please contact a member of your healthcare team. If you have left the hospital and have any questions, please contact your primary care physician. Reason For Referral No Data Found Plan of Treatment US Echo With Color (58424) 04/21/2024 NM Spect Perf Rest Stress Multi (90527) 06/02/2024 Stress Test Chemical 06/02/2024 NM Spect Perf Rest Stress Multi (18534) 06/02/2024 Stress Test Chemical 06/02/2024 Encounters Encounter Diagnosis Start Date Code Code Sys tem Heart failure, unspecified 03/15/2024 S NOMED-CT Personal Care Team Section Performer Name Performer Role Active Date Inactive EDDIE Harry PCP - Primary care physician 2024-04-20 2
--- OUTSIDE RECORDS SUMMARY | 2024-11-09 00:20 | XMS_ITS ---
Author Organization Unknown Address [address] [place] [phone] Phone Care Team Providers Care Staffing Director Name Role Phone JADEN CLYDE Attending Unavailable [facility] Primary Unavailable Immunization Immunization Date Status [...] Smoking History Unknown if ever smoked [id number] Sex Female Hospital Discharge Instructions Should you have any questions prior to discharge, please contact a member of your healthcare team. If you have left the hospital and have any questions, please contact your primary care physician. Reason For Referral No Data Found Plan of Treatment US Echo With Color (54432) 04/21/2024 NM Spect Perf Rest Stress Multi (11253) 06/02/2024 Stress Test Chemical 06/02/2024 NM Spect Perf Rest Stress Multi (10499) 06/02/2024 Stress Test Chemical 06/02/2024 Personal Care Team Section Performer Name Performer Role Active Date Inactive EDDIE Harry PCP - Primary care physician 2024-04-2 2
--- NOTE | 2024-11-09 00:30 | ADMGEN ---
This patient, Columba Voss, was admitted to IMU Room 206-02 at 0006. Patient/family oriented to hospital policies and general routines including ID bracelet, bed and alarms, visiting hours, pain management, procedures, bathroom and other care routines, personal items, smoking policy, room service/diet, and visiting hours. Information on how to activate the Rapid Response Team has been discussed. Patient/Family are encouraged to report perceived risks to care and to ask questions if they do not understand what they are told or what they should do.
[2024-11-09 00:49] LABS: Glucose Point of Care 339 mg/dl (65-105)
--- NOTE | 2024-11-09 01:07 | P.HP_ITS ---
H&P: HPI History of Present Illness Date/Time: 11/09/24 01:07 Chief Complaint: Abdominal pain Narrative: This is a 69-year-old female with a history of morbid obesity with BMI 48, heart failure with reduced ejection fraction and combined diastolic dysfunction, COPD, prior tobacco dependence, zig-fvpijjf-xzogunbbx diabetes mellitus, CKD stage 3, gout, paroxysmal AFib on Eliquis, hypertension, hyperlip idemia she presented to [facility] on 11/08/2024 with complaint of neck pain which had been going on for about 3 days. She denied any prior trauma or surgery. However that pain resolved and she developed left upper quadrant pain. She also reported shortness of breath to the ER physician however upon arrival to [place] she denied it albeit was in clear respiratory distress. She also admits to nausea but no vomiting. 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 She otherwise has not had any increase distension of her abdomen. She does not know if she has gained weight, she has swelling on her legs per reports that her usual. Evaluation at [facility] revealed atrial fibrillation rate controlled, tachypnea, blood pressure 119/75, saturating 93% on room air. WBC count 15.7, sodium 133, potassium 3.3, chloride 95, BUN 19, serum creatinine 1.50, glucose 428 than 339, lactic acid 2.7 then 3.1. She received a diuretic but did not urinate in response. Troponin 76.52260.5. High limit of normal is 60.4. CRP 23, BNP 2285, EKG without any acute ischemia. A subsequent CT chest abdomen pelvis with contrast revealed a small left-sided pleural effusion with adjacent compressive atelectasis, small pericardial effusion, lobe enlargement of bilateral ovaries and uterus, fatty infiltration of an enlarged liver. She was subsequently transferred to [place] for further evaluation and treatment. Review of Systems Review of Systems: All systems reviewed & are unremarkable except as noted in HPI and below (HPI) [facility] Past Medical History Medical History Chronic obstructive pulmonary disease Heart failure with reduced ejection fraction and diastolic dysfunction EF was 40 to 45% on echo in September 2022. Type 2 diabetes mellitus Chronic kidney disease, stage 3 Gout Chronic anticoagulation Paroxysmal atrial fibrillation History of cardioversion and ablation. Hyperlipidemia Hypertension Surgical History Surgical History History of cataract extraction History of cardiac radiofrequency ablation History of total left hip arthroplasty History of cholecystectomy History of surgical removal of lesion Family History Family History Sibling Lung cancer Sibling Diabetes mellitus Hypertension Sibling Acute myocardial infarction Mother [place] disease Sibling Accidental Social History Social History Social History: Surrogate medical decision maker: Lauren Zimmer, niece. Code status: Full code. Smoking status: Never smoker Second hand tobacco smoke exposure: Yes Alcohol intake: never Substance use: never Substance use type: does not use Do You Feel Safe in your Home?: Yes Lack of Transportation: YES Lack of Food: Never True Current Housing: I Have Housing Concerned About Future Housing: No Difficulty Paying Gas/Electric Bills: No Difficulty Paying for Meds: No Currently Unemployed: Decline to Answer Education: High School Diploma/GED Difficulty w/ Childcare or Family Care: No Living arrangements: with family Additional living arrangements comments: Daughter is staying with her right now. Occupation/Education: retired Additional occupation/education comments: Worked at a [employer], and at a [employer]. Spiritual care concerns: No Meds Home Medications and Allergies Home Medications ?Medication ?Instructions ?Recorded ?Confirmed ?Type digoxin 125 mcg (0.125 mg) tablet 125 mcg PO DAILY 05/18/24 11/09/24 History albuterol sulfate 90 mcg/actuation 1 inh inhalation Q4H PRN shortness 06/07/24 11/09/24 Rx aerosol inhaler of breath or wheezing #8.5 grams gabapentin 300 mg capsule See Rx Instructions .Route 08/15/24 11/09/24 Rx .COMPLEX #270 caps torsemide 100 mg tablet 100 mg PO QAM #90 tabs 08/25/24 11/09/24 Rx tirzepatide 2.5 mg/0.5 mL 2.5 mg (0.5 mL) subcut WEEKLY #2 mL 08/30/24 11/09/24 Rx subcutaneous pen injector (Lonnie) amlodipine 10 mg tablet 10 mg PO DAILY #90 tabs 09/09/24 11/09/24 Rx budesonide 160 mcg-glycopyr 9 2 inh inhalation QAM AND QPM #10.7 09/09/24 11/09/24 Rx mcg-formot 4.8 mcg/actuation HFA grams inhaler ([employer]) lancets 30 gauge (OneTouch Delica #100 ea 10/20/24 Rx Plus Lancet) allopurinol 100 mg tablet See Rx Instructions .Route 10/26/24 11/09/24 Rx .COMPLEX #180 tabs apixaban 5 mg tablet 5 mg PO BID #90 tabs 11/01/24 11/09/24 Rx blood sugar diagnostic (FuturefleetTouch #100 strips 11/07/24 Rx Verio test strips) metoprolol succinate 200 mg 200 mg PO DAILY 11/09/24 11/09/24 History tablet,extended release 24 hr Allergies Allergy/AdvReac Type Severity Reaction Status Date / Time No Known Allergies Allergy Verified 11/08/24 17:03 Vital Signs Vital Signs - 24 hr 11/09/24 00:06 Temperature 97.8 F Pulse Rate 100 Respiratory Rate 18 Blood Pressure 143/69 H Pulse Oximetry 92 Exam Const: Other: Acute distress due to left upper quadrant pain which is slightly reproducible and shortness of breath. HENMT: Mouth: Yes moist mucous membranes Eyes: Pupils: Equal, round and reactive pupils present Neck: Neck: supple Resp: Other: Tachypnea. Bibasilar rales up to mid lungs bilaterally Cardio: Rate: tachycardic Rhythm: abnormal rhythm Heart sounds: no gallops, no murmurs and no rubs GI: GI Palp: Yes Soft to palpation Other: Slightly distant, reported to be normal per the patient Neuro: Motor exam (neuro): 5/5 motor strength present throughout Sensory Exam: normal sensation Extrem: Other: 2+ pitting edema of the bilateral lower extremities up to the knees Assessment and Plan Assessment and plan (1) Heart failure with reduced ejection fraction: Code(s): I50.20 - Unspecified systolic (congestive) heart failure Status: Acute (2) Paroxysmal atrial fibrillation: Code(s): I48.0 - Paroxysmal atrial fibrillation Status: Chronic (3) ZARAGOZA (dyspnea on exertion): Code(s): R06.09 - Other forms of dyspnea Status: Acute Plan This is a 69-year-old female with a history of morbid obesity with BMI 48, heart failure with reduced ejection fraction and combined diastolic dysfunction, COPD, prior tobacco dependence, sfz-gvnnvkb-kjmecwtyq diabetes mellitus, CKD stage 3, gout, paroxysmal AFib on Eliquis, hypertension, hyperlipidemia she presented to [facility] on 11/08/2024 with complaint of neck pain which had been going on for about 3 days. She denied any prior trauma or surgery. However that pain resolved and she developed left upper quadrant pain. She also reported shortness of breath to the ER physician however upon arrival to [place] she denied it albeit was in clear respiratory distress. She also admits to nausea but no vomiting. 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 She otherwise has not had any increase distension of her abdomen. She does not know if she has gained weight, she has swelling on her legs per reports that her usual. Evaluation at [facility] revealed atrial fibrillation rate controlled, tachypnea, blood pressure 119/75, saturating 93% on room air. WBC count 15.7, sodium 133, potassium 3.3, chloride 95, BUN 19, serum creatinine 1.50, glucose 428 than 339, lactic acid 2.7 then 3.1. She received a diuretic but did not urinate in response. Troponin 76.23320.5. High limit of normal is 60.4. CRP 23, BNP 2285, EKG without any acute ischemia. A subsequent CT chest abdomen pelvis with contrast revealed a small left-sided pleural effusion with adjacent compressive atelectasis, small pericardial effusion, lobe enlargement of bilateral ovaries and uterus, fatty infiltration of an enlarged liver. She was subsequently transferred to [place] for further evaluation and treatment. ----- Unclear the cause of the patient's left upper quadrant pain however could be due to left pleural effusion/atelectasis/edema. Lipase is normal in CT abdomen did not reveal any etiology. Elevated troponin which is currently flat an EKG without ST changes is likely due to demand ischemia due to most likely an acute decompensated heart failure. Patient reports her legs are the same and she does not have shortness of breath although she appears to be a poor historian as her legs are very swollen and she was in respiratory distress. Elevated BNP and pulmonary crackles on lung auscultation supports this. She also has a mild pericardial effusion and left-sided pleural effusion. She received diuretic at [facility] however did not have any urine output. Give Lasix 80 mg IV x1. Thereafter, Lasix 40 mg IV b.i.d.. Strict I's and O's as well as daily weights. We will reassess her status after urine output including lactic acid which is elevated at 3.1 as well as serum creatinine which is currently at 1.5. Check procalcitonin and trend leukocytosis and slightly elevated troponin as well. Check a quad viral screen. Pain regimen p.r.n. for the left upper quadrant pain. Ipratropium nebs q.4 hours scheduled as she does have some coarse wheezing which could be due to her COPD or cardiac wheeze. Accu-Cheks a.c. HS with low-dose insulin sliding scale. Mild hypokalemia give potassium KCl 40 mEq x 1. ----- Full code. 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 Saline lock IV. Continue cleaning attendant arrhythmia, continuous pulse ox as she has a large neck and COPD and she will be receiving opioids. Adverse effects, risk and benefits of medications discussed with the patient. Hospitalist [facility] Advance Care Plan I have confirmed that the patient's Advanced Care Plan is present, code status is documented, or surrogate decision maker is listed in patient medical record.: Yes Medication Reconciliation I have utilized all available resources to obtain, update and review the patients current medications (includes all prescriptions, OTC, herbals, cannabis, and nutritional supplements).: Yes
[2024-11-09 01:24] LABS: Basophils Absolute Auto 0.1 K/mm3 (0.0-0.1); Basophils Percent Auto 0.5 % (0.2-1.2); Hematocrit 39.8 % (37.0-47.0); Hemoglobin 13.4 g/dL (12.0-15.0); Immature Granulocyte Absolute 0.12 K/mm3 (0.00-0.031); Immature Granulocyte Percent A 0.8 % (0-0.5); Lymphocytes Absolute Auto 0.55 K/mm3 (0.9-3.2); Lymphocytes Percent Auto 3.9 % (18.3-44.2); Mean Corpuscular HGB Conc 33.7 g/dl (32-36); Mean Corpuscular Hemoglobin 30.2 pg (26-34); Mean Corpuscular Volume 89.8 fl (80-100); Neutrophils Absolute Auto 12.4 K/mm3 (1.3-6.7); Neutrophils Percent Auto 87.8 % (45.5-73.1); Platelet Count Result 221 k/mm3 (150-375); Red Blood Count 4.43 M/mm3 (4.2-5.4); Red Cell Distribution Width 14.3 % (11.5-14.5); White Blood Count 14.1 K/mm3 (4.5-10.0)
[2024-11-09] MEDS: POTASSIUM CHLORIDE 20 MEQ ER TABLET 40 MEQ PO ×2 (01:32→08:01)
[2024-11-09] MEDS: FUROSEMIDE INJ 100 MG/10 ML VIAL 80 MG IV PUSH (01:32)
[2024-11-09 01:33] LABS: Alanine Aminotransferase 41 U/L (6-35); Albumin Level 4.1 g/dL (3.5-5.1); Alkaline Phosphatase 80 U/L (38-126); Anion Gap 13 mmol/L (4-12); Aspartate Amino Transferase 42 U/L (14-36); Bilirubin,Total 2.3 mg/dL (0.2-1.3); Blood Urea Nitrogen 22 mg/dL (7-17); Calcium 8.7 mg/dL (8.4-10.2); Carbon Dioxide 26 mmol/L (22-30); Chloride 92 mmol/L (98-107); Estimated CRCL calculation 51 ml/min; Estimated Glomerular Filt Rate 46; Glucose 364 mg/dL (65-110); Magnesium 1.6 mg/dL (1.6-2.3); Potassium 3.4 mmol/L (3.4-5.0); Sodium 131 mmol/L (137-145)
[2024-11-09 01:34] LABS: Lactic Acid Reflex 2.2 mmol/L (0.7-2.0)
[2024-11-09 01:45] LABS: Troponin I 0.026 ng/mL (0.000-0.034)
[2024-11-09 02:10] LABS: Procalcitonin 6.8 ng/mL
[2024-11-09] MEDS: IPRATROPIUM BR 0.02% INH SOLN 0.5 MG/2.5 ML VIAL INHALATION ×6 (02:11→19:55)
[2024-11-09] MEDS: AZITHROMYCIN 500 MG/NS 250 ML 500 MG/250 ML BAG 250 MG IVPB (03:48)
[2024-11-09] MEDS: cefTRIAXone 2 GM/NS 100 ML 2 GM/100 ML BAG IVPB (03:48)
[2024-11-09 04:38] LABS: Influenza A QL RT-PCR Negative (Negative); Influenza B QL RT-PCR Negative (Negative); RSV RNA, RT-PCR Negative (Negative); SARS-CoV-2 RNA PCR Negative (Negative)
--- NOTE | 2024-11-09 05:00 | ECG_ITS ---
Test Date: 2024-11-09 05:23:37 Measurements Intervals [place] Rate: 91 P: 0 HI: 0 QRS: -6 QRSD: 101 T: 38 QT: 343 QTc: 422 Interpretive Statements ATRIAL FIBRILLATION DELAYED PRECORDIAL R/S TRANSITION CONSIDER INFERIOR INFARCT, AGE INDETERMINATE BORDERLINE ST-T WAVE ABNORMALITY- HIGH LATERAL LEADS BASELINE ARTIFACT- I, II, III, AVR, AVL, AVF, V4-V6 ABNORMAL ECG Compared to ECG 11/08/2024 17:22:37 NO SIGNIFICANT CHANGE Electronically Signed On 11-09-2024 10:43:47 CDT by Shaggy Jimenez D.O.
[2024-11-09] MEDS: traMADol HCL (*CRX) 25 MG TABLET PO ×3 (05:07→22:34)
[2024-11-09 07:35] LABS: Glucose Point of Care 345 mg/dl (65-105)
--- OUTSIDE RECORDS SUMMARY | 2024-11-09 07:46 | XMS_ITS | Encounter Summary ---
Author Organization [facility] Address [address] [place] [address] Care Team Providers Care Manager Business Process Name Role Phone Ricci Marshall MD Unavailable Unavailab Júnior Huynh DO Primary Care Provider [phone] Eun Hu MD Unavailable [phone] Encounter Details Date Type Department Care Team (Late st Contact Info) Description 02/13/2016 [facility] [address] [place] [address] Ricci Marshall MD Social History Tobacco Use Types Packs/Day Years Used Date Smoking Tobacco: Never Alcohol Use Standard Drinks/Week Comments No 0 (1 standard drink = 0.6 oz pur e alcohol) Comments Unknown Sex and Gender Information Value Date Recorded Sex Assigned at Not on file Legal Sex Female 6:12 PM CDT Gender Identity Female 08/05/2021 11:22 AM SECTION FOREST FIRE WARDEN Sexual Orientation Straight 08/05/2021 11 :22 AM SECTION FOREST FIRE WARDEN Occupation Industry Job Start Date Job End Date retired Not on file Not on file Not on file documented as of this encounter Plan of Treatment Not on file documented as of this encounter Visit Diagnoses Not on filedocumented in this encounter Additional Health Concerns Infection Onset Date Last Indicated Resolved Time COVID-19 Rule Out 08/06/2021 08/06/2021 08/06/2021 2:29 PM SECTION FOREST FIRE WARDEN documented as of this encounter Care Teams Manager Business Process Relationship Specialty Start Date End Date Júnior Leung DO [address] [place] [address] PCP - General FAMILY PRACTICE 07/11/20 Ricci Marshall MD CARDIOVASCULAR DISEASE 02/13/16 07/10/20 Eun Hu MD [address] [place], [place] [id number] INTERVENTIONAL CARDIOLOGY 07/11/20 documented as of this encounter
--- OUTSIDE RECORDS SUMMARY | 2024-11-09 07:46 | XMS_ITS ---
Author Organization Unknown Address [address] [place] [phone] Phone Care Team Providers Care Nut Culler Name Role Phone JADEN CLYDE Attending Unavailable [facility] Primary Unavailable Immunization Immunization Date Status [...] Smoking History Unknown if ever smoked [id number] Sex Female Hospital Discharge Instructions Should you have any questions prior to discharge, please contact a member of your healthcare team. If you have left the hospital and have any questions, please contact your primary care physician. Reason For Referral No Data Found Plan of Treatment US Echo With Color (36424) 04/21/2024 NM Spect Perf Rest Stress Multi (50744) 06/02/2024 Stress Test Chemical 06/02/2024 NM Spect Perf Rest Stress Multi (46700) 06/02/2024 Stress Test Chemical 06/02/2024 Encounters Encounter Diagnosis Start Date Code Code Sys tem Unspecified systolic (congestive) heart failure 2023 SNOMED-CT Personal Care Team Section Performer Name Performer Role Active Date Inactive EDDIE Harry PCP - Primary care physician 2024-04-2 2
--- OUTSIDE RECORDS SUMMARY | 2024-11-09 07:46 | XMS_ITS | Clinical Summary ---
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[employer] Sexual Orientation Straight 08/05/2021 11 :22 AM [employer] Occupation Industry Job Start Date Job End Date retired Not on file Not on file Not on file Last Filed Vital Signs Vital Sign Reading Time Taken Comments Blood Pressure 141/88 10/02/2021 9:52 AM CDT Pulse 73 10/02/2021 9:51 AM CDT Temperature 36.5 C (97.7 F) 08/10/2021 7:52 AM [employer]ER [employer] Respiratory Rate 20 10/02/2021 9:51 AM CDT [...] Billing Address Personal/Family Self 1955 [address] [place] [address] MEDICAID [employer] Advance Directives * Full Code (Latest Code Status on File) Date Activated Date Inactivated Comments 08/08/2021 12:28 PM 08/10/2021 1:35 PM Care Teams Grain Handler Relationship Specialty Start Date End Date Júnior Leung DO [address] [place] [address] PCP - General FAMILY PRACTICE 07/11/20 Eun Hu MD [address] [place] [address] INTERVENTIONAL CARDIOLOGY 07/11/20
--- OUTSIDE RECORDS SUMMARY | 2024-11-09 07:46 | XMS_ITS | Encounter Summary ---
Author Organization [facility] Address [address] [place] [address] Care Team Providers Care Recovery Rn Name Role Phone Júnior Leung DO Primary Care Provider [phone] Eun Hu MD Unavailable [phone] Encounter Details Date Type Department Care Team (Late st Contact Info) Description 10/29/2021 Abstract [facility] [address] Sara tSewart, [facility]- [address] [place] [address] Social History Tobacco Use Types Packs/Day Years Used Date Smoking Tobacco: Never Smokeless Tobacco: Never Alcohol Use Standard Drinks/Week Comments No 0 (1 standard drink = 0.6 oz pur e alcohol) Comments Unknown Sex and Gender Information Value Date Recorded Sex Assigned at Not on file Legal Sex Female 6:12 PM CDT Gender Identity Female 08/05/2021 11:22 AM 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 Answer Date of Assessment Author Status No 08/08/2021 1:49 PM LAP CUTTER Activ e * Do you have serious difficulty walking or climbing stairs? Answer Date of Assessment Author Status No 08/08/2021 1:49 PM LAP CUTTER Mackenzie Mendez R N Active * Do you have difficulty dressing or bathing? Answer Date of Assessment Author Status No 08/08/2021 1:49 PM LAP CUTTER Mackenzie Mendez R N Active * Because of a physical, mental, or emotional condition, do you have difficulty doing errands alone such as visiting a doctor's office or shopping? Answer Date of Assessment Author Status No 08/08/2021 1:49 PM LAP CUTTER Mackenzie Mendez R N Active documented as of this encounter Mental Status * Because of a physical, mental, or emotional condition, do you have serious difficulty concentrating, remembering, or making decisions? Answer Entry Date Author Status No 08/08/2021 1:49 PM LAP CUTTER Mackenzie Mendez R N Active documented in this encounter Plan of Treatment Not on file documented as of this encounter Procedures Procedure Name Priority Date/Time Associated Diagnosis Comments PROTHROMBIN TIME, VENOUS Routine 10/25/2021 Paroxysmal atrial fibrillation documented in this encounter Results * PROTHROMBIN TIME, VENOUS (10/25/2021) PROTIME WHOLE BLOOD 31.9 INR WHOLE BLOOD 3.20 10/25/2021 Sara Stewart [facility] Final Res ult documented in this encounter Visit Diagnoses Diagnosis Paroxysmal atrial fibrillation ([facility]/HCC HHS/HCC) Atrial fibrillation documented in this encounter Care Teams Recovery Rn Relationship Specialty Start Date End Date Júnior Leung DO [address] [place] [address] PCP - General FAMILY PRACTICE 07/11/20 Eun Hu MD [address] [place] [address] INTERVENTIONAL CARDIOLOGY 07/11/20 documented as of this encounter
--- OUTSIDE RECORDS SUMMARY | 2024-11-09 07:46 | XMS_ITS ---
Author Organization Unknown Address [address] [place] [phone] Phone Care Team Providers Care Laboratory Veterinarian Name Role Phone JADEN CLYDE Attending Unavailable [facility] Primary Unavailable Immunization Immunization Date Status [...] Smoking History Unknown if ever smoked [id number] Sex Female Hospital Discharge Instructions Should you have any questions prior to discharge, please contact a member of your healthcare team. If you have left the hospital and have any questions, please contact your primary care physician. Reason For Referral No Data Found Plan of Treatment US Echo With Color (73938) 04/21/2024 NM Spect Perf Rest Stress Multi (30112) 06/02/2024 Stress Test Chemical 06/02/2024 NM Spect Perf Rest Stress Multi (15587) 06/02/2024 Stress Test Chemical 06/02/2024 Encounters Encounter Diagnosis Start Date Code Code Sys tem Heart failure, unspecified 06/02/2024 S NOMED-CT Personal Care Team Section Performer Name Performer Role Active Date Inactive EDDIE Harry PCP - Primary care physician 2024-04-20 2
--- OUTSIDE RECORDS SUMMARY | 2024-11-09 07:47 | XMS_ITS | Encounter Summary ---
Author Organization [facility] Address [address] [place] [address] Care Team Providers Care Fitness Services Manager Name Role Phone Júnior Leung Primary Care Provider [phone] Eun Hu MD Unavailable [phone] Encounter Details Date Type Department Care Team ([facility] st Contact Info) Description 01/08/2021 Prep [facility] Procedure [facility] [address] [place] [phone] Eun Hu MD [address] [place] [address] Social History Tobacco Use Types Packs/Day Years Used Date Smoking Tobacco: Never Smokeless Tobacco: Never Alcohol Use Standard Drinks/Week Comments No 0 (1 standard drink = 0.6 oz pur e alcohol) Comments Unknown Sex and Gender Information Value Date Recorded Sex Assigned at Not on file Legal Sex Female 6:12 PM CDT Gender Identity Female 08/05/2021 11:22 AM GRADUATE NURSE Sexual Orientation Straight 08/05/2021 11 :22 AM GRADUATE NURSE Occupation Industry Job Start Date Job End [...] Rule Out 08/06/2021 08/06/2021 08/06/2021 2:29 PM GRADUATE NURSE documented as of this encounter Care Teams Fitness Services Manager Relationship Specialty Start Date End Date Júnior Leung DO [address] [place] [address] PCP - General FAMILY PRACTICE 07/11/20 Eun Hu MD [address] [place] [address] INTERVENTIONAL CARDIOLOGY 07/11/20 documented as of this encounter
--- OUTSIDE RECORDS SUMMARY | 2024-11-09 07:47 | XMS_ITS | Encounter Summary ---
Author Organization [facility] Address [address] [place] [address] Care Team Providers Care Roving Winder Name Role Phone Scottnick Júnior DURON Primary Care Provider [phone] Eun Hu MD Unavailable [phone] Encounter Details Date Type Department Care Team (Late st Contact Info) Description 01/10/2021 Hospital Orders Only [facility] [address] [place] [address] Gay Guevara Anesthesia Record Procedure Summary Procedure [...] CDT Gender Identity Female 08/05/2021 11:22 AM KETTLE SKIMMER Sexual Orientation Straight 08/05/2021 11 :22 AM KETTLE SKIMMER Occupation Industry Job Start Date Job End [...] Rule Out 08/06/2021 08/06/2021 08/06/2021 2:29 PM KETTLE SKIMMER documented as of this encounter Care Teams Roving Winder Relationship Specialty Start Date End Date Júnior Leung DO [address] [place] [address] PCP - General FAMILY PRACTICE 07/11/20 Eun Hu MD [address] [place] [address] INTERVENTIONAL CARDIOLOGY 07/11/20 documented as of this encounter
--- OUTSIDE RECORDS SUMMARY | 2024-11-09 07:47 | XMS_ITS ---
Author Organization Unknown Address [address] [place] [phone] Phone Care Team Providers Care Pcb Designer Name Role Phone JADEN CLYDE Attending Unavailable [facility] Primary Unavailable Immunization Immunization Date Status [...] Smoking History Unknown if ever smoked [id number] Sex Female Hospital Discharge Instructions Should you have any questions prior to discharge, please contact a member of your healthcare team. If you have left the hospital and have any questions, please contact your primary care physician. Reason For Referral No Data Found Plan of Treatment US Echo With Color (03254) 04/21/2024 NM Spect Perf Rest Stress Multi (87974) 06/02/2024 Stress Test Chemical 06/02/2024 NM Spect Perf Rest Stress Multi (95681) 06/02/2024 Stress Test Chemical 06/02/2024 Personal Care Team Section Performer Name Performer Role Active Date Inactive EDDIE Harry PCP - Primary care physician 2024-04-2 2
--- OUTSIDE RECORDS SUMMARY | 2024-11-09 07:47 | XMS_ITS | Encounter Summary ---
Author Organization [facility] Address Pending sale to [facility] [place] [address] Care Team Providers Care Shop Lead Name Role Phone Scottnick Júnior DURON Primary Care Provider [phone] Eun Hu MD Unavailable [phone] Encounter Details Date Type Department Care Team (Late st Contact Info) Description 08/07/2021 Hospital Orders Only [facility] Anesthesia [address] [place] [address] Gay Guevara Anesthesia Record Procedure Summary Procedure [...] CDT Gender Identity Female 08/05/2021 11:22 AM AVIATION ORDNANCE OFFICER Sexual Orientation Straight 08/05/2021 11 :22 AM AVIATION ORDNANCE OFFICER Occupation Industry Job Start Date Job End Date retired Not on file Not on file Not on file COVID-19 Exposure Response Date Recorded In the last month, have you been in contact with someone who was confirmed or suspected to have Coronavirus / COVID-19? No / Unsure 08/08/2021 7:06 AM AVIATION ORDNANCE OFFICER documented as of this encounter Functional Status * Calculated C-SSRS Risk Score (Lifetime/Recent) Answer Date of Assessment Author Status No Risk Indicated 08/08/2021 7:22 AM AVIATION ORDNANCE OFFICER Ching Taylor RN Active * Benedict Suicide Severity Rating Scale (Screener/Recent Self-Report) Question Answer Date of Assessment Author Status 1. Wish to be (Past 1 Month) No 08/08/2021 7:22 AM AVIATION ORDNANCE OFFICER Jennyfer Taylor RN Act yenny 2. Non-Specific Active Suicidal Thoughts (Past 1 Month) No 08/08/2021 7:22 AM AVIATION ORDNANCE OFFICER Jennyfer Taylor RN Act yenny 6. Suicidal Behavior (Lifetime) No 08/08/2021 7:22 AM AVIATION ORDNANCE OFFICER Jennyfer Taylor RN Act yenny documented as of this encounter Mental Status * Question Answer Entry Date Author Status Because of a physical, mental, or emotional condition, do you have serious difficulty concentrating, remembering, or making decisions? No 08/08/2021 1:49 PM AVIATION ORDNANCE OFFICER Mackenzie Mendez RN Active documented in this encounter Plan of Treatment Not on file documented as of this encounter Visit Diagnoses Not on filedocumented in this encounter Care Teams Shop Lead Relationship Specialty Start Date End Date Júnior Leung DO [address] [place] [address] PCP - General FAMILY PRACTICE 07/11/20 Eun Hu MD [address] [place] [address] INTERVENTIONAL CARDIOLOGY 07/11/20 documented as of this encounter
--- OUTSIDE RECORDS SUMMARY | 2024-11-09 07:47 | XMS_ITS ---
Author Organization Unknown Address [address] [place] [phone] Phone Care Team Providers Care Chief Medical Technologist Name Role Phone JADEN CLYDE Attending Unavailable [...] Smoking History Unknown if ever smoked [id number] Sex Female Hospital Discharge Instructions Should you have any questions prior to discharge, please contact a member of your healthcare team. If you have left the hospital and have any questions, please contact your primary care physician. Reason For Referral No Data Found Plan of Treatment US Echo With Color (75959) 04/21/2024 NM Spect Perf Rest Stress Multi (58164) 06/02/2024 Stress Test Chemical 06/02/2024 NM Spect Perf Rest Stress Multi (33259) 06/02/2024 Stress Test Chemical 06/02/2024 Encounters Encounter Diagnosis Start Date Code Code Sys tem Unspecified atrial fibrillation 04/21/2024 SNOMED-CT Personal Care Team Section Performer Name Performer Role Active Date Inactive EDDIE Harry PCP - Primary care physician 2023-10-[address] [facility] 04/26/2024 14:[address] [address] RADIOLOGY REPORT Patient Number: [id number] Patient Name: ASHA MARTINEZ Type: O/P MR Number: [id number] : 1955 Age: 68 Sex: F Room #: Admit Date: 04/21/24 Discharge Date 04/21/24 Ordering Physician: JADEN TANG Family Physician: NO PCP Second Physician: X-Ray Number : [id number] US ECHO W/ COLOR [id number] COMPLETE:04/21/24 13:28 [facility] [id number] (REASON-ECHO COMPLTE: ATRIAL FIBRILLATION See Scanned Image Attachment for Report Dictated By: Heraclio Initials: Trans Date: 04/26/24 14:43 <<REPDIST>>
--- OUTSIDE RECORDS SUMMARY | 2024-11-09 07:47 | XMS_ITS ---
Author Organization Unknown Address [address] [place] [phone] Phone Care Team Providers Care Employment Service Specialist Name Role Phone JADEN CLYDE Attending Unavailable [facility] Primary Unavailable Immunization Immunization Date [...] Smoking History Unknown if ever smoked [id number] Sex Female Hospital Discharge Instructions Should you have any questions prior to discharge, please contact a member of your healthcare team. If you have left the hospital and have any questions, please contact your primary care physician. Reason For Referral No Data Found Plan of Treatment US Echo With Color (21289) 04/21/2024 NM Spect Perf Rest Stress Multi (71851) 06/02/2024 Stress Test Chemical 06/02/2024 NM Spect Perf Rest Stress Multi (76622) 06/02/2024 Stress Test Chemical 06/02/2024 Encounters Encounter Diagnosis Start Date Code Code Sys tem Heart failure, unspecified 03/15/2024 S NOMED-CT Personal Care Team Section Performer Name Performer Role Active Date Inactive EDDIE Harry PCP - Primary care physician 2024-04-20 2
--- OUTSIDE RECORDS SUMMARY | 2024-11-09 07:48 | XMS_ITS ---
Author Organization Unknown Address [address] [place] [phone] Phone Care Team Providers Care Unix System Administrator Name Role Phone JADEN CLYDE Attending Unavailable [facility] Primary Unavailable Immunization Immunization Date Status [...] Smoking History Unknown if ever smoked [id number] Sex Female Hospital Discharge Instructions Should you have any questions prior to discharge, please contact a member of your healthcare team. If you have left the hospital and have any questions, please contact your primary care physician. Reason For Referral No Data Found Plan of Treatment US Echo With Color (47774) 04/21/2024 NM Spect Perf Rest Stress Multi (18404) 06/02/2024 Stress Test Chemical 06/02/2024 NM Spect Perf Rest Stress Multi (03773) 06/02/2024 Stress Test Chemical 06/02/2024 Personal Care Team Section Performer Name Performer Role Active Date Inactive EDDIE Harry PCP - Primary care physician 2024-04-2 2
--- OUTSIDE RECORDS SUMMARY | 2024-11-09 07:48 | XMS_ITS ---
Author Organization Unknown Address [address] [place] [phone] Phone Care Team Providers Care Dust Operator Name Role Phone JADEN CLYDE Attending Unavailable [facility] Primary Unavailable Immunization Immunization Date Status [...] Smoking History Unknown if ever smoked [id number] Sex Female Hospital Discharge Instructions Should you have any questions prior to discharge, please contact a member of your healthcare team. If you have left the hospital and have any questions, please contact your primary care physician. Reason For Referral No Data Found Plan of Treatment US Echo With Color (42764) 04/21/2024 NM Spect Perf Rest Stress Multi (37914) 06/02/2024 Stress Test Chemical 06/02/2024 NM Spect Perf Rest Stress Multi (97223) 06/02/2024 Stress Test Chemical 06/02/2024 Encounters Encounter Diagnosis Start Date Code Code Sys tem Unspecified systolic (congestive) heart failure 2023 SNOMED-CT Personal Care Team Section Performer Name Performer Role Active Date Inactive EDDIE Harry PCP - Primary care physician 2024-04-2 2
--- OUTSIDE RECORDS SUMMARY | 2024-11-09 07:48 | XMS_ITS ---
Author Organization Unknown Address [address] [place] [address] [phone] Phone Care Team Providers Care Booster Assembler Name Role Phone JADEN CLYDE Attending Unavailable [facility] Primary Unavailable Immunization Immunization Date Status [...] Smoking History Unknown if ever smoked [id number] Sex Female Hospital Discharge Instructions Should you have any questions prior to discharge, please contact a member of your healthcare team. If you have left the hospital and have any questions, please contact your primary care physician. Reason For Referral No Data Found Plan of Treatment US Echo With Color (48175) 04/21/2024 NM Spect Perf Rest Stress Multi (97177) 06/02/2024 Stress Test Chemical 06/02/2024 NM Spect Perf Rest Stress Multi (39428) 06/02/2024 Stress Test Chemical 06/02/2024 Encounters Encounter Diagnosis Start Date Code Code Sys tem Unspecified atrial fibrillation 04/21/2024 SNOMED-CT Personal Care Team Section Performer Name Performer Role Active Date Inactive EDDIE Harry PCP - Primary care physician 2023-10-2 2 Imaging Narrative Notes [facility] 04/26/2024 14:[address] [address] RADIOLOGY REPORT Patient Number: [id number] Patient Name: ASHA MARTINEZ Type: O/P MR Number: [id number] : 1955 Age: 68 Sex: F Room #: Admit Date: 04/21/24 Discharge Date 04/21/24 Ordering Physician: JADEN TANG Family Physician: NO PCP Second Physician: X-Ray Number : [id number] US ECHO W/ COLOR [id number] COMPLETE:04/21/24 13:28 [facility] [id number] (REASON-ECHO COMPLTE: ATRIAL FIBRILLATION See Scanned Image Attachment for Report Dictated By: Heraclio Initials: Trans Date: 04/26/24 14:43 <<REPDIST>>
--- OUTSIDE RECORDS SUMMARY | 2024-11-09 07:48 | XMS_ITS ---
Author Organization Unknown Address [address] [place] [address] [phone] Phone Care Team Providers Care Targeteer Name Role Phone JADEN CLYDE Attending Unavailable [facility] Primary Unavailable Immunization Immunization Date [...] Smoking History Unknown if ever smoked [id number] Sex Female Hospital Discharge Instructions Should you have any questions prior to discharge, please contact a member of your healthcare team. If you have left the hospital and have any questions, please contact your primary care physician. Reason For Referral No Data Found Plan of Treatment US Echo With Color (68118) 04/21/2024 NM Spect Perf Rest Stress Multi (39745) 06/02/2024 Stress Test Chemical 06/02/2024 NM Spect Perf Rest Stress Multi (52682) 06/02/2024 Stress Test Chemical 06/02/2024 Encounters Encounter Diagnosis Start Date Code Code Sys tem Heart failure, unspecified 03/15/2024 S NOMED-CT Personal Care Team Section Performer Name Performer Role Active Date Inactive EDDIE Harry PCP - Primary care physician 2024-04-20 2
--- OUTSIDE RECORDS SUMMARY | 2024-11-09 07:48 | XMS_ITS ---
Author Organization Unknown Address [address] [place] [address] [phone] Phone Care Team Providers Care Fishing Tool Operator Name Role Phone JADEN CLYDE Attending Unavailable [facility] Primary Unavailable Immunization Immunization Date Status [...] Smoking History Unknown if ever smoked [id number] Sex Female Hospital Discharge Instructions Should you have any questions prior to discharge, please contact a member of your healthcare team. If you have left the hospital and have any questions, please contact your primary care physician. Reason For Referral No Data Found Plan of Treatment US Echo With Color (28662) 04/21/2024 NM Spect Perf Rest Stress Multi (35496) 06/02/2024 Stress Test Chemical 06/02/2024 NM Spect Perf Rest Stress Multi (18394) 06/02/2024 Stress Test Chemical 06/02/2024 Encounters Encounter Diagnosis Start Date Code Code Sys tem Heart failure, unspecified 06/02/2024 S NOMED-CT Personal Care Team Section Performer Name Performer Role Active Date Inactive EDDIE Harry PCP - Primary care physician 2024-04-20 2
[2024-11-09] MEDS: METOPROLOL SUCCINATE EXT REL 100 MG TABCR 200 MG PO (08:00)
[2024-11-09] MEDS: INSULIN ASPART (*BKC) 100 UNITS/ML SUB-Q ×4 (08:01→21:42)
[2024-11-09] MEDS: APIXABAN 5 MG TABLET PO (08:01)
[2024-11-09] MEDS: GABAPENTIN 300 MG CAPSULE BY MOUTH ×3 (08:01→17:11)
[2024-11-09] MEDS: DIGOXIN TAB 125 MCG TABLET PO (08:01)
[2024-11-09] MEDS: FUROSEMIDE INJ 40 MG/4 ML VIAL IV PUSH ×2 (08:01→17:12)
[2024-11-09] MEDS: guaiFENesin 12 HR 600 MG TABCR PO (08:05)
[2024-11-09 08:10] LABS: Lactic Acid Reflex 1.8 mmol/L (0.7-2.0)
[2024-11-09 08:11] LABS: Alveolar/Arterial O2 Gradient 212.7 mmHg; Base Excess ABG 0.1 mEq/l (+/-2.0); Fractional Inspired Oxygen 44 %; HCO3 ABG 23.9 mEq/l (22.0-26.0); Oxygen Content ABG 17.8 %vol (16.0-22.0); Oxyhemoglobin 90.6 % THb (90.0-100.0); PCO2 ABG 36.1 mmHg (35.0-45.0); PO2 ABG 59.9 mmHg (80.0-100.0); PO2 FiO2 Ratio Arterial Blood 1.36 %; pH ABG 7.438 (7.350-7.450)
[2024-11-09 08:11] LABS: Magnesium 1.7 mg/dL (1.6-2.3)
[2024-11-09 08:28] LABS: Device NASAL CANNULA; Modified Allen's Test Pass; Site Drawn RIGHT RADIAL
--- NOTE | 2024-11-09 10:22 | PM.IMPN ---
Progress Note: A&P Assessment and Plan (1) Heart failure with reduced ejection fraction: Code(s): I50.20 - Unspecified systolic (congestive) heart failure Status: Acute Assessment and Plan: BNP 2285. Echocardiogram: Summary 1. Complete two-dimensional, color flow and Doppler transthoracic echocardiogram is performed. 2. Left ventricular chamber dimension is normal. 3. Left ventricular systolic function is normal, estimated at 60-65%. 4. The left ventricular diastolic function is abnormal. 5. E/e' 16 is elevated. 6. Atrial fibrillation. 7. Left atrial chamber dimension is moderately enlarged. 8. Right atrial chamber dimension is mildly enlarged. 9. There is mild aortic valve sclerosis. 10. There is trace mitral valve regurgitation. 11. No pulmonary hypertension, estimated pulmonary arterial systolic pressure is 30 mmHg. 12. There is trivial pericardial effusion. Furosemide 40 mg ivp BID. Daily weights. Strict I&O's. (2) Paroxysmal atrial fibrillation: Code(s): I48.0 - Paroxysmal atrial fibrillation Status: Chronic Assessment and Plan: Patient was taking Eliquis 5 mg PO BID. LE dopplers positive for a DVT LLE. Switch to Enoxaprin 120 mg subq q 12 and start Coumadin. Metoprolol Succinate 200 mg PO daily. (3) COPD (chronic obstructive pulmonary disease): Code(s): J44.9 - Chronic obstructive pulmonary disease, unspecified Status: Acute Assessment and Plan: Azithromycin 500 mg IVPB q 24. Ceftriaxone 2 gram IVPB q 24. Guaifenesin 1,200 mg PO BID. Incentive Spirometer. Ipratropium 0.5 mg Neb q 4. WBC improving from 15.7>14.1. ABG: pH 7.438, pC02 36.1, p02 59.9, 02 saturation 92.0. Pulmonology consult. (4) ZARAGOZA (dyspnea on exertion): Code(s): R06.09 - Other forms of dyspnea Status: Acute Assessment and Plan: D dimer 1.70. Chest CTA negative. LE dopplers:IMPRESSION: 1. No deep venous thrombosis within the right lower extremity. 2.. Venous thrombosis of the posterior tibial and peroneal veins in the left lower extremity. Pulmonology consult. (5) Deep vein thrombosis (DVT) of left lower extremity: Code(s): I82.402 - Acute embolism and thrombosis of unspecified deep veins of left lower extremity Status: Acute Assessment and Plan: LE doppler: IMPRESSION: 1. No deep venous thrombosis within the right lower extremity. 2.. Venous thrombosis of the posterior tibial and peroneal veins in the left lower extremity. Patient reported that she was previously on Coumadin. Patient switched to Eliquis a month ago. Patient reports compliance with Eliquis. Stop Eliquis. Start Lovenox 120 mg subq q12. INR 1.9. Add Warfarin 5 mg PO daily. Monitor PT/INR daily. (6) Abdominal pain: Code(s): R10.9 - Unspecified abdominal pain Status: Acute Assessment and Plan: Chest Abdomen/pelvis showed: IMPRESSION: Small left-sided pleural effusion with adjacent compressive atelectasis. Small pericardial effusion. Global enlargement of the bilateral ovaries and uterus, abnormal for a patient of this age. Fatty infiltration of an enlarged liver. Abdominal US ordered. (7) DM2 (diabetes mellitus, type 2): Qualifiers: Diabetes mellitus complication detail: with other circulatory complications Diabetes mellitus complication status: with circulatory complication Code(s): E11.9 - Type 2 diabetes mellitus without complications Status: Chronic Assessment and Plan: Accuchecks, SSI, and hypoglycemic protocol. HgbA1C 9.1% on 08/30/24. Plan This is a 69-year-old female with a history of morbid obesity with BMI 48, heart failure with reduced ejection fraction and combined diastolic dysfunction, COPD, prior tobacco dependence, [id number] diabetes mellitus, CKD stage 3, gout, paroxysmal AFib on Eliquis, hypertension, hyperlipidemia she presented to [facility] on 11/08/2024 with complaint of neck pain which had been going on for about 3 days. She denied any prior trauma or surgery. However that pain resolved and she developed left upper quadrant pain. She also reported shortness of breath to the ER physician however upon arrival to [place] she denied it albeit was in clear respiratory distress. She also admits to nausea but no vomiting. Her last bowel movement was about 2 days [employer] and she usually has bowel movements every 2-3 days, that is normal for her. She otherwise has not had any increase distension of her abdomen. She does not know if she has gained weight, she has swelling on her legs per reports that her usual. Evaluation at [facility] revealed atrial fibrillation rate controlled, tachypnea, blood pressure 119/75, saturating 93% on room air. WBC count 15.7, sodium 133, potassium 3.3, chloride 95, BUN 19, serum creatinine 1.50, glucose 428 than 339, lactic acid 2.7 then 3.1. She received a diuretic but did not urinate in response. Troponin 76.90523.5. High limit of normal is 60.4. CRP 23, BNP 2285, EKG without any acute ischemia. A subsequent CT chest abdomen pelvis with contrast revealed a small left-sided pleural effusion with adjacent compressive atelectasis, small pericardial effusion, lobe enlargement of bilateral ovaries and uterus, fatty infiltration of an enlarged liver. She was subsequently transferred to [place] for further evaluation and treatment. ----- Unclear the cause of the patient's left upper quadrant pain however could be due to left pleural effusion/atelectasis/edema. Lipase is normal in CT abdomen did not reveal any etiology. Elevated troponin which is currently flat an EKG without ST changes is likely due to demand ischemia due to most likely an acute decompensated heart failure. Patient reports her legs are the same and she does not have shortness of breath although she appears to be a poor historian as her legs are very swollen and she was in respiratory distress. Elevated BNP and pulmonary crackles on lung auscultation supports this. She also has a mild pericardial effusion and left-sided pleural effusion. She received diuretic at [facility] however did not have any urine output. Give Lasix 80 mg IV x1. Thereafter, Lasix 40 mg IV b.i.d.. Strict I's and O's as well as daily weights. We will reassess her status after urine output including lactic acid which is elevated at 3.1 as well as serum creatinine which is currently at 1.5. Check procalcitonin and trend leukocytosis and slightly elevated troponin as well. Check a quad viral screen. Pain regimen p.r.n. for the left upper quadrant pain. Ipratropium nebs q.4 hours scheduled as she does have some coarse wheezing which could be due to her COPD or cardiac wheeze. Accu-Cheks a.c. HS with low-dose insulin sliding scale. Mild hypokalemia give potassium KCl 40 mEq x 1. ----- Full code. [employer] medications will restarted as appropriate and indicated including Eliquis forward DVT prophylaxis. Saline lock IV. 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 Adverse effects, risk and benefits of medications discussed with the patient. Subjective Date/time seen: 11/09/24 10:22 Interval history: Patient sitting up in bed. Patient reports shortness of breath at times. Patient denies chest pain, palpitations, headache, dizziness, nausea, or vomiting. Patient reports pain in left upper abdomen that is an 8 , constant, and aching. Patient reports that she is not on home oxygen or CPAP. Review of Systems Review of Systems: All systems reviewed & are unremarkable except as noted in HPI and below Exam Const: General: no acute distress and uncomfortable Resp: Auscultation: wheezes expiratory wheezes and diminished lung sounds Other: Tachypneic at times Cardio: Rhythm: abnormal rhythm irregularly irregular (afib 87) Other: Telemetry- SR 81 GI: GI Palp: Yes Soft to palpation and Yes Tenderness to palpation present (GI) (left upper abdomen) Neuro: Speech: normal speech Extrem: General: pedal edema bilaterally 2+ (BLE edema) Psych: Mental Status: mental status grossly normal Affect: normal affect Objective Data Vital Signs Vital Signs: Vital Signs - 24 hr 11/09/24 00:06 11/09/24 02:00 11/09/24 02:07 Temperature 97.8 F Pulse Rate 100 78 Respiratory Rate 18 Blood Pressure 143/69 H Pulse Oximetry 92 92 Oxygen Delivery Room Air Oxygen Flow Rate 11/09/24 02:09 11/09/24 02:15 11/09/24 02:15 Temperature Pulse Rate 90 72 78 Respiratory Rate 28 H 26 H 26 H Blood Pressure Pulse Oximetry 93 Oxygen Delivery Nasal Cannula Oxygen Flow Rate 3 11/09/24 03:55 11/09/24 04:00 11/09/24 04:00 Temperature 97.4 F L Pulse Rate 87 98 Respiratory Rate 18 Blood Pressure 150/97 H Pulse Oximetry 90 96 Oxygen Delivery Nasal Cannula Oxygen Flow Rate 3 11/09/24 04:14 11/09/24 04:22 11/09/24 04:28 Temperature Pulse Rate 83 90 94 Respiratory Rate 30 H 28 H 28 H Blood Pressure Pulse Oximetry 92 Oxygen Delivery Nasal Cannula Oxygen Flow Rate 5 11/09/24 08:00 11/09/24 08:00 11/09/24 08:00 Temperature 98.4 F Pulse Rate 98 110 H Respiratory Rate 35 H Blood Pressure 124/75 Pulse Oximetry 90 90 Oxygen Delivery Nasal Cannula Oxygen Flow Rate 6 11/09/24 08:08 11/09/24 08:09 11/09/24 08:16 Temperature Pulse Rate 101 H 115 H Respiratory Rate 26 H 24 H Blood Pressure Pulse Oximetry 91 Oxygen Delivery Nasal Cannula Oxygen Flow Rate 6 11/09/24 10:00 Temperature Pulse Rate 83 Respiratory Rate Blood Pressure Pulse Oximetry Oxygen Delivery Oxygen Flow Rate Intake/Output Intake/Output: Intake & Output 11/06/24 11/07/24 11/08/24 11/09/24 23:59 23:59 23:59 23:59 Intake Total 350 Balance 350 Meds/Results Medications: Active Medications Generic Name Dose Route Start Last Admin Trade Name Freq PRN Reason Stop Dose Admin Acetaminophen 650 mg 11/09/24 01:03 Acetaminophen 325 Mg Tablet PO Q4H PRN Mild Pain (1-3) or Fever Apixaban 5 mg 11/09/24 09:00 11/09/24 08:01 Apixaban 5 Mg Tablet PO 5 mg Q12HR MASTER Administration Dextrose 12.5 gm 11/09/24 01:01 Dextrose 50% 25 Gm/50 Ml Syringe IV PUSH PRN PRN Hypoglycemia Protocol Digoxin 125 mcg 11/09/24 09:00 11/09/24 08:01 Digoxin Tab 125 Mcg Tablet PO 125 mcg DAILY MASTER Administration Furosemide 40 mg 11/09/24 09:00 11/09/24 08:01 Furosemide Inj 40 Mg/4 Ml Vial IV PUSH 40 mg BID MASTER Administration Gabapentin 300 mg 11/09/24 09:00 11/09/24 08:01 Gabapentin 300 Mg Capsule BY MOUTH 300 mg TID MASTER Administration Glucose 15 gm 11/09/24 01:01 Glucose Oral Gel 15 Gm Of Glucse In 37.5 Gm Tube PO PRN PRN Hypoglycemia Protocol Guaifenesin 600 mg 11/09/24 09:00 11/09/24 08:05 Guaifenesin 12 Hr 600 Mg Tabcr PO 11/16/24 08:59 600 mg Q12HR MASTER Administration Dextrose 1,000 mls @ 100 mls/hr 11/09/24 01:01 Dextrose 5% 1,000 Ml IVPB PRN PRN Hypoglycemia Protocol Ceftriaxone Sodium 2 gm in 100 mls @ 200 mls/hr 11/09/24 04:00 11/09/24 05:05 Rocephin 2 Gm/Ns 100 Ml IVPB Infused Q24H MASTER Infusion Azithromycin 500 mg in 250 mls @ 250 mls/hr 11/09/24 05:00 11/09/24 05:05 Zithromax IVPB Infused Q24H MASTER Infusion Insulin Aspart 2 - 5 units 11/09/24 08:00 11/09/24 08:01 Insulin Aspart (*Bkc) 100 Units/Ml SUB-Q 4 units TIDWM MASTER Administration Protocol Insulin Aspart 1 - 2 units 11/09/24 21:00 Insulin Aspart (*Bkc) 100 Units/Ml SUB-Q HS [facility] Protocol Ipratropium [place] 0.5 mg 11/09/24 01:00 11/09/24 08:05 Ipratropium Br 0.02% Inh Soln 0.5 Mg/2.5 Ml Vial INHALATION 0.5 mg Q4HRT MASTER Administration Metoprolol Succinate 200 mg 11/09/24 09:00 11/09/24 08:00 Metoprolol Succinate Ext Rel 100 Mg Tabcr PO 200 mg DAILY MASTER Administration Morphine Sulfate 2 mg 11/09/24 01:03 Morphine Sulfate (*Crx) 2 Mg/Ml Inj IV PUSH Q4H PRN Pain Rated 7-10 Perflutren Lipid Microsphere 0 ml 11/09/24 00:58 Perflutren Lipid Microspheres 1.5 Ml Vial Diluted To 10 Ml Total Volume IV PUSH 11/12/24 00:58 ONCE PRN adequate visualization Protocol Tramadol HCl 25 mg 11/09/24 01:03 11/09/24 05:07 Tramadol Hcl (*Crx) 25 Mg Tablet PO 25 mg Q4H PRN Administration Pain Rated 4-6 Radiology Results: ITS Impressions Chest X-Ray 11/09/24 08:30 Impression: 1: Cardiomegaly with mild interstitial edema. Labs Labs: Laboratory Results - last 24 hr 11/09/24 11/09/24 11/09/24 00:45 01:19 03:51 WBC 14.1 H RBC 4.43 Hgb 13.4 Hct 39.8 MCV 89.8 MCH 30.2 MCHC 33.7 RDW 14.3 Plt Count 221 MPV 11.0 H Immature Gran % (Auto) 0.8 H Neut % (Auto) 87.8 H Lymph % (Auto) 3.9 L [place] % (Auto) 7.0 Eos % (Auto) 0.0 Baso % (Auto) 0.5 Lymph # (Auto) 0.55 L [place] # (Auto) 1.0 H Eos # (Auto) 0.0 Baso # (Auto) 0.1 Abs Immat Gran (auto) 0.12 H Absolute Neuts (auto) 12.4 H Absolute Nucleated RBC 0.000 Nucleated RBC % 0.0 D-Dimer Puncture Site ABG pH ABG pCO2 ABG pO2 ABG PO2/FiO2 Ratio ABG HCO3 ABG O2 Saturation ABG O2 Content ABG Base Excess A-a Gradient Oxyhemoglobin Total Hemoglobin O2 Delivery Device O2 Liters/Min FiO2 Sodium 131 L Potassium 3.4 Chloride 92 L Carbon Dioxide 26 Anion Gap 13 H BUN 22 H D Creatinine 1.16 H Estim Creat Clear Calc 51 Estimated GFR 46 L Glucose 364 H POC Capillary Glucose 339 H Lactic Acid 2.2 H Calcium 8.7 Magnesium 1.6 Total Bilirubin 2.3 H AST 42 H ALT 41 H Alkaline Phosphatase 80 Troponin I 0.026 Total Protein 7.0 Albumin 4.1 Procalcitonin 6.8 Influenza A (RT-PCR) Negative Influenza B (RT-PCR) Negative RSV (RT-PCR) Negative SARS-CoV-2 RNA (RT-PCR) Negative 11/09/24 11/09/24 11/09/24 07:26 07:48 07:58 WBC RBC Hgb Hct MCV MCH MCHC RDW Plt Count MPV Immature Gran % (Auto) Neut % (Auto) Lymph % (Auto) [place] % (Auto) Eos % (Auto) Baso % (Auto) Lymph # (Auto) [place] # (Auto) Eos # (Auto) Baso # (Auto) Abs Immat Gran (auto) Absolute Neuts (auto) Absolute Nucleated RBC Nucleated RBC % D-Dimer Puncture Site Right radial ABG pH 7.438 ABG pCO2 36.1 ABG pO2 59.9 L ABG PO2/FiO2 Ratio 1.36 ABG HCO3 23.9 ABG O2 Saturation 92.0 L ABG O2 Content 17.8 ABG Base Excess 0.1 A-a Gradient 212.7 Oxyhemoglobin 90.6 Total Hemoglobin 14.0 O2 Delivery Device Nasal cannula O2 Liters/Min 6.0 FiO2 44 Sodium Potassium Chloride Carbon Dioxide Anion Gap BUN Creatinine Estim Creat Clear Calc Estimated GFR Glucose POC Capillary Glucose 345 H Lactic Acid 1.8 Calcium Magnesium 1.7 Total Bilirubin AST ALT Alkaline Phosphatase Troponin I Total Protein Albumin Procalcitonin Influenza A (RT-PCR) Influenza B (RT-PCR) RSV (RT-PCR) SARS-CoV-2 RNA (RT-PCR) 11/09/24 08:26 WBC RBC Hgb Hct MCV MCH MCHC RDW Plt Count MPV Immature Gran % (Auto) Neut % (Auto) Lymph % (Auto) [place] % (Auto) Eos % (Auto) Baso % (Auto) Lymph # (Auto) [place] # (Auto) Eos # (Auto) Baso # (Auto) Abs Immat Gran (auto) Absolute Neuts (auto) Absolute Nucleated RBC Nucleated RBC % D-Dimer 1.70 H Puncture Site ABG pH ABG pCO2 ABG pO2 ABG PO2/FiO2 Ratio ABG HCO3 ABG O2 Saturation ABG O2 Content ABG Base Excess A-a Gradient Oxyhemoglobin Total Hemoglobin O2 Delivery Device O2 Liters/Min FiO2 Sodium Potassium Chloride Carbon Dioxide Anion Gap BUN Creatinine Estim Creat Clear Calc Estimated GFR Glucose POC Capillary Glucose Lactic Acid Calcium Magnesium Total Bilirubin AST ALT Alkaline Phosphatase Troponin I Total Protein Albumin Procalcitonin Influenza A (RT-PCR) Influenza B (RT-PCR) RSV (RT-PCR) SARS-CoV-2 RNA (RT-PCR)
[2024-11-09 11:21] LABS: Glucose Point of Care 342 mg/dl (65-105)
--- NOTE | 2024-11-09 16:33 | P.CONPL_ITS ---
Assessment and Plan Assessment and plan (1) Acute hypoxemic respiratory failure: Code(s): J96.01 - Acute respiratory failure with hypoxia Status: Acute Assessment and Plan: Does not use oxygen at home, never requiring oxygen 9 L a minute. No elevation of pCO2. Will rty AirVo instead of relguar NS. this may help decrease her work of breathing. Cause for acute hypoxemic respiratory failure is not clear. She has small pleural effusions, CTA was negative for a pulmonary embolus but she does have acute thrombus in the left lower leg. (2) COPD (chronic obstructive pulmonary disease): Code(s): J44.9 - Chronic obstructive pulmonary disease, unspecified Status: Acute Assessment and Plan: Diagnosed 5 years ago, med list shows Breztri and albuterol. One of her clinic notes said she is not using the Breztri regularly. She is a lifelong never smoker but she has had secondhand smoke from her parents, her ex- smoked heavily however they have not been together for 35 years. She did not have any occupational exposure. She will continue bronchodilators, (3) Deep vein thrombosis (DVT) of left lower extremity: Code(s): I82.402 - Acute embolism and thrombosis of unspecified deep veins of left lower extremity Status: Acute Assessment and Plan: Eliquis stopped, full dose Lovenox started 120 mg subQ Q 12 hours (4) Shortness of breath: Code(s): R06.02 - Shortness of breath Status: Inactive Assessment and Plan: Severe today, improved. She is resting with better saturation using the AirVo 50 L/min and 60%, saturation is 92%. . Plan plan: BNP; she may have cardiac dysfunction. CTA is negative for PE. Has DVT in left lower leg; possible that some thrombus may have travelled up to lungs. She is fully anticoagulated with compliance on eliquis and now, back on Lovenox. She was on coumadin 5 years without issues, only problem was needing to get Protime. AirVo; improve oxygenation and may decreased work of breathing; May be easier to tolerate than BiPAP Her Eliquis was stopped, has been on it for a month and did not have problems for 5 years but now has developed clot below the knee on the left side. Assure adequate oxygenation, wean O2 as tolerated. Willl need to address sleep issues. She has untreated slee apnea, and atrial fib. Could hanve mixed apnea, obstructive and central. History of Present Illness History of Present Illness Consult date: 11/09/24 Requesting physician: Sheryl Macario APRN Chief complaint: shortness of breath Narrative: pt seen November 09 at 16:45 Room 205 IMU Her daughter Migdalia helps to provide history, also present were granddaughter and great grandson NEW: Columba Voss is a 69-year-old female with atrial fib for the last 5 years has been well managed with Coumadin. She has COPD, uses Breztri and albuteroll. About a month ago, her inductor tester switched her to a Eliquis. Night before last she developed neck pain, very uncomfortable, worse when she was sleeping in bed so she got up and slept in the recliner. The next day the pain in the neck had moved down to her ribs. She was increasingly short of breath, presented at [facility] complaining of LUQ pain. She had nausea, no vomiting, no appetite for a week before arrival. She was in atrial fibrillation, 93% on room air. WBC was high 15.7. Lactic acid 2.7, She had a small left pleural effusion. She was transferred to [place], now in IMU, has increased respiratory distress with increased requirement of oxygen up to 9 L a minute. Testing today 11/09 : Venous thrombosis of the posterior tibial and peroneal veins in the left lower extremity. CTA showed no PE; moderate LEft pleural effusion and left atelectasis. She is already on Eliquis 5 mg bid for atrial fib. She is more short of breath today, now on 9 L. She had decreased appetite before admission, increased welling in both legs. 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 Has not worked for [employer]. She had no occupational exposure to vapors, dusts, fumes, asbestos. PMH: Decreased LV function, diastolic dysfunction, (+) home sleep test not on treatment. COPD. No tobacco. Lots of second hand tobacco per family. DM on insulin, CKD stage 3. DATA * 11/09/24 LE Dopplers; No deep venous thrombosis within the right lower extremity. Venous thrombosis of the posterior tibial and peroneal veins in the left lower extremity. * 11/09/24 CTA -No evidence of pulmonary embolus, aortic dissection, or aortic aneurysm. Minimal pericardial effusion. Small to moderate left pleural effusion and small right pleural effusion, with bilateral atelectatic change, left worse than right. * 11/09/24 ABG on 6 L : PH 7.43, pCO2 36, PO2 59.9, saturation 92%, AA gradient 212, nasal cannula 6 L * 11/09 echo; Complete two-dimensional, color flow and Doppler transthoracic echocardiogram is performed. 2. Left ventricular chamber dimension is normal. 3. Left ventricular systolic function is normal, estimated at 60-65%. 4. The left ventricular diastolic function is abnormal. 5. E/e' 16 is elevated. 6. Atrial fibrillation. 7. Left atrial chamber dimension is moderately enlarged. 8. Right atrial chamber dimension is mildly enlarged. 9. There is mild aortic valve sclerosis. 10. There is trace mitral valve regurgitation. 11. No pulmonary hypertension, estimated pulmonary arterial systolic pressure is 30 mmHg. 12. There is trivial pericardial effusion. [facility] Past Medical History Medical History Chronic obstructive pulmonary disease Heart failure with reduced ejection fraction and diastolic dysfunction EF was 40 to 45% on echo in September 2022. Type 2 diabetes mellitus Chronic kidney disease, stage 3 Gout Chronic anticoagulation Paroxysmal atrial fibrillation History of cardioversion and ablation. Hyperlipidemia Hypertension Surgical History Surgical History History of cataract extraction History of cardiac radiofrequency ablation History of total left hip arthroplasty History of cholecystectomy History of surgical removal of lesion Family History Family History Sibling Lung cancer Sibling Diabetes mellitus Hypertension Sibling Acute myocardial infarction Mother Hart disease Sibling Accidental Social History Social History Social History: Surrogate medical decision maker: Lauren Zimmer, niece. Code status: Full code. Smoking status: Never smoker Second hand tobacco smoke exposure: Yes Alcohol intake: never Substance use: never Substance use type: does not use Do You Feel Safe in your Home?: Yes Lack of Transportation: YES Lack of Food: Never True Current Housing: I Have Housing Concerned About Future Housing: No Difficulty Paying Gas/Electric Bills: No Difficulty Paying for Meds: No Currently Unemployed: Decline to Answer Education: High School Diploma/GED Difficulty w/ Childcare or Family Care: No Living arrangements: with family Additional living arrangements comments: Daughter is staying with her right now. Occupation/Education: retired Additional occupation/education comments: Worked at a [employer], and at a [employer]. Spiritual care concerns: No Meds Home Medications and Allergies Home Medications ?Medication ?Instructions ?Recorded ?Confirmed ?Type digoxin 125 mcg (0.125 mg) tablet 125 mcg PO DAILY 05/18/24 11/09/24 History albuterol sulfate 90 mcg/actuation 1 inh inhalation Q4H PRN shortness 06/07/24 11/09/24 Rx aerosol inhaler of breath or wheezing #8.5 grams gabapentin 300 mg capsule See Rx Instructions .Route 08/15/24 11/09/24 Rx .COMPLEX #270 caps torsemide 100 mg tablet 100 mg PO QAM #90 tabs 08/25/24 11/09/24 Rx tirzepatide 2.5 mg/0.5 mL 2.5 mg (0.5 mL) subcut WEEKLY #2 mL 08/30/24 11/09/24 Rx subcutaneous pen injector (Lonnie) amlodipine 10 mg tablet 10 mg PO DAILY #90 tabs 09/09/24 11/09/24 Rx budesonide 160 mcg-glycopyr 9 2 inh inhalation QAM AND QPM #10.7 09/09/24 11/09/24 Rx mcg-formot 4.8 mcg/actuation HFA grams inhaler ([employer]) lancets 30 gauge ([employer] Delica #100 ea 10/20/24 11/09/24 Rx Plus Lancet) allopurinol 100 mg tablet See Rx Instructions .Route 10/26/24 11/09/24 Rx .COMPLEX #180 tabs apixaban 5 mg tablet 5 mg PO BID #90 tabs 11/01/24 11/09/24 Rx blood sugar diagnostic ([employer] #100 strips 11/07/24 11/09/24 Rx Verio test strips) metoprolol succinate 200 mg 200 mg PO DAILY 11/09/24 11/09/24 History tablet,extended release 24 hr Allergies Allergy/AdvReac Type Severity Reaction Status Date / Time No Known Allergies Allergy Verified 11/08/24 17:03 Vital Signs Vital Signs - 24 hr 11/09/24 00:06 11/09/24 02:00 11/09/24 02:07 Temperature 36.6 C Pulse Rate 100 78 Respiratory Rate 18 Blood Pressure 143/69 H Pulse Oximetry 92 92 Oxygen Delivery Room Air Oxygen Flow Rate 11/09/24 02:09 11/09/24 02:15 11/09/24 02:15 Temperature Pulse Rate 90 72 78 Respiratory Rate 28 H 26 H 26 H Blood Pressure Pulse Oximetry 93 Oxygen Delivery Nasal Cannula Oxygen Flow Rate 3 11/09/24 03:55 11/09/24 04:00 11/09/24 04:00 Temperature 36.3 C L Pulse Rate 87 98 Respiratory Rate 18 Blood Pressure 150/97 H Pulse Oximetry 90 96 Oxygen Delivery Nasal Cannula Oxygen Flow Rate 3 11/09/24 04:14 11/09/24 04:22 11/09/24 04:28 Temperature Pulse Rate 83 90 94 Respiratory Rate 30 H 28 H 28 H Blood Pressure Pulse Oximetry 92 Oxygen Delivery Nasal Cannula Oxygen Flow Rate 5 11/09/24 08:00 11/09/24 08:00 11/09/24 08:00 Temperature 36.9 C Pulse Rate 98 110 H Respiratory Rate 35 H Blood Pressure 124/75 Pulse Oximetry 90 90 Oxygen Delivery Nasal Cannula Oxygen Flow Rate 6 11/09/24 08:08 11/09/24 08:09 11/09/24 08:16 Temperature Pulse Rate 101 H 115 H Respiratory Rate 26 H 24 H Blood Pressure Pulse Oximetry 91 Oxygen Delivery Nasal Cannula Oxygen Flow Rate 6 11/09/24 10:00 11/09/24 11:42 11/09/24 12:00 Temperature 36.8 C Pulse Rate 83 95 Respiratory Rate 33 H Blood Pressure 132/81 Pulse Oximetry 93 90 Oxygen Delivery Nasal Cannula Oxygen Flow Rate 6 11/09/24 12:00 11/09/24 13:25 11/09/24 14:00 Temperature Pulse Rate 106 H 99 102 H Respiratory Rate 24 H Blood Pressure Pulse Oximetry Oxygen Delivery Oxygen Flow Rate 11/09/24 14:05 11/09/24 15:46 11/09/24 16:06 Temperature 37.0 C Pulse Rate 106 H 106 H Respiratory Rate 34 H 24 H Blood Pressure 140/78 Pulse Oximetry 92 92 Oxygen Delivery Nasal Cannula Oxygen Flow Rate 8 11/09/24 16:20 11/09/24 16:29 Temperature Pulse Rate 111 H Respiratory Rate 24 H Blood Pressure Pulse Oximetry 93 Oxygen Delivery High Flow Nasal Cannula Oxygen Flow Rate 9 Exam 2 Narrative: Temperature 37.0?, pulse 111, respirations 24, blood pressure 140/78, saturation 93% on 9 L nasal cannula GEN: arousable, can follow commands. Drowsy and nodding off. . HEENT: pupils are equal, EOMI, symmetrical face; oral membranes dry, Mallampati III airway NECK: Trachea is midline CHEST: Equal air entry, symmetric excursion, decreased breath sounds, limited excursion of lungs due to drowsiness, large body habitus CV: Regular S1S2 no m/g/r ABD : (+) bowel sounds, soft. Extremities : no clubbing, no cyanosis, 4+ edema in lower legs, 1+ in hands PSYCH: Follows commands Results Laboratory Findings 11/09/24 01:19 11/09/24 01:19 ABG, PT/INR, D-dimer: ABG ABG pH 7.438 (7.350-7.450) 11/09/24 07:58 ABG pCO2 36.1 mmHg (35.0-45.0) 11/09/24 07:58 ABG pO2 59.9 mmHg (80.0-100.0) L 11/09/24 07:58 ABG O2 Saturation 92.0 % (95.0-100.0) L 11/09/24 07:58 PT/INR, D-dimer D-Dimer 1.70 ug/mL (<0.48) H 11/09/24 08:26 Abnormal lab findings: Abnormal Labs 11/09/24 11/09/24 11/09/24 00:45 01:19 07:26 WBC 14.1 H MPV 11.0 H Immature Gran % (Auto) 0.8 H Neut % (Auto) 87.8 H Lymph % (Auto) 3.9 L Lymph # (Auto) 0.55 L Island # (Auto) 1.0 H Abs Immat Gran (auto) 0.12 H Absolute Neuts (auto) 12.4 H D-Dimer ABG pO2 ABG O2 Saturation Sodium 131 L Chloride 92 L Anion Gap 13 H BUN 22 H D Creatinine 1.16 H Estimated GFR 46 L Glucose 364 H POC Capillary Glucose 339 H 345 H Lactic Acid 2.2 H Total Bilirubin 2.3 H AST 42 H ALT 41 H 11/09/24 11/09/24 11/09/24 07:58 08:26 11:19 WBC MPV Immature Gran % (Auto) Neut % (Auto) Lymph % (Auto) Lymph # (Auto) Island # (Auto) Abs Immat Gran (auto) Absolute Neuts (auto) D-Dimer 1.70 H ABG pO2 59.9 L ABG O2 Saturation 92.0 L Sodium Chloride Anion Gap BUN Creatinine Estimated GFR Glucose POC Capillary Glucose 342 H Lactic Acid Total Bilirubin AST ALT
[2024-11-09 16:38] LABS: Glucose Point of Care 336 mg/dl (65-105)
[2024-11-09] MEDS: ENOXAPARIN 120 MG/0.8 ML SYRINGE SUB-Q (17:11)
[2024-11-09] MEDS: DICLOFENAC SODIUM 1% 100 GM GEL (*BKC) 1 APPLIC TOPICAL (17:14)
[2024-11-09 17:34] LABS: INR 1.9; Prothrombin Time 22.3 Seconds (11.1-14.7)
[2024-11-09 17:43] LABS: Glucose Point of Care 306 mg/dl (65-105)
[2024-11-09 17:43] LABS: NT Pro B Type Natriuretic Pept 1870 pg/mL (19.9-100)
[2024-11-09] MEDS: WARFARIN (*PBKC) 5 MG TABLET PO (18:47)
[2024-11-09] MEDS: guaiFENesin 12 HR 600 MG TABCR 1200 MG PO (20:25)
[2024-11-09 21:07] LABS: Glucose Point of Care 274 mg/dl (65-105)
[2024-11-10] VITALS (28 sets, daily range): BP systolic 121–155; BP diastolic 67–99; PULSE 76–112; RESP 22–34; TEMP 36.4–36.8; O2SAT 90–94
[2024-11-10] MEDS: IPRATROPIUM BR 0.02% INH SOLN 0.5 MG/2.5 ML VIAL INHALATION ×6 (00:06→20:44)
[2024-11-10] MEDS: cefTRIAXone 2 GM/NS 100 ML 2 GM/100 ML BAG IVPB (03:36)
[2024-11-10] MEDS: MORPHINE SULFATE (*CRX) 2 MG/ML INJ IV PUSH (03:37)
[2024-11-10] MEDS: AZITHROMYCIN 500 MG/NS 250 ML 500 MG/250 ML BAG 250 MG IVPB (05:06)
[2024-11-10] MEDS: ENOXAPARIN 120 MG/0.8 ML SYRINGE SUB-Q ×2 (05:06→18:25)
[2024-11-10 05:12] LABS: Basophils Percent Auto 0.3 % (0.2-1.2); Eosinophils Percent Auto 0.1 % (0-4.4); Hematocrit 38.6 % (37.0-47.0); Immature Granulocyte Absolute 0.08 K/mm3 (0.00-0.031); Immature Granulocyte Percent A 0.6 % (0-0.5); Lymphocytes Absolute Auto 0.63 K/mm3 (0.9-3.2); Lymphocytes Percent Auto 4.7 % (18.3-44.2); Mean Corpuscular HGB Conc 33.7 g/dl (32-36); Mean Corpuscular Hemoglobin 30.3 pg (26-34); Mean Platelet Volume 11.4 fl (7.4-10.4); Monocytes Absolute Auto 0.8 K/mm3 (0.1-0.6); Monocytes Percent Auto 6.2 % (2.6-8.5); Neutrophils Absolute Auto 11.8 K/mm3 (1.3-6.7); Neutrophils Percent Auto 88.1 % (45.5-73.1); Platelet Count Result 231 k/mm3 (150-375); Red Blood Count 4.29 M/mm3 (4.2-5.4); Red Cell Distribution Width 14.2 % (11.5-14.5); White Blood Count 13.4 K/mm3 (4.5-10.0)
[2024-11-10 05:22] LABS: Alanine Aminotransferase 41 U/L (6-35); Albumin Level 3.9 g/dL (3.5-5.1); Alkaline Phosphatase 93 U/L (38-126); Anion Gap 13 mmol/L (4-12); Aspartate Amino Transferase 33 U/L (14-36); Bilirubin,Total 1.1 mg/dL (0.2-1.3); Blood Urea Nitrogen 25 mg/dL (7-17); Calcium 8.8 mg/dL (8.4-10.2); Carbon Dioxide 26 mmol/L (22-30); Chloride 93 mmol/L (98-107); Estimated CRCL calculation 45 ml/min; Estimated Glomerular Filt Rate 39; Glucose 275 mg/dL (65-110); Magnesium 1.7 mg/dL (1.6-2.3); Potassium 3.6 mmol/L (3.4-5.0); Sodium 132 mmol/L (137-145)
[2024-11-10] MEDS: traMADol HCL (*CRX) 25 MG TABLET PO (08:13)
[2024-11-10] MEDS: POTASSIUM CHLORIDE 20 MEQ ER TABLET 40 MEQ PO (08:13)
[2024-11-10] MEDS: guaiFENesin 12 HR 600 MG TABCR 1200 MG PO ×2 (08:13→20:39)
[2024-11-10] MEDS: METOPROLOL SUCCINATE EXT REL 100 MG TABCR 200 MG PO (08:15)
[2024-11-10] MEDS: GABAPENTIN 300 MG CAPSULE BY MOUTH ×3 (08:15→18:26)
[2024-11-10] MEDS: DIGOXIN TAB 125 MCG TABLET PO (08:15)
[2024-11-10] MEDS: FUROSEMIDE INJ 40 MG/4 ML VIAL IV PUSH ×2 (08:16→18:25)
[2024-11-10] MEDS: DICLOFENAC SODIUM 1% 100 GM GEL (*BKC) 1 APPLIC TOPICAL ×3 (08:16→18:00)
[2024-11-10] MEDS: INSULIN ASPART (*BKC) 100 UNITS/ML SUB-Q ×4 (08:21→20:40)
[2024-11-10 08:22] LABS: Glucose Point of Care 280 mg/dl (65-105)
[2024-11-10] MEDS: MAGNESIUM SULF 2 GM/WATER 50ML 2 GM/50 ML BAG IVPB (08:22)
[2024-11-10] MEDS: amLODIPine BESYLATE 10 MG TABLET PO (08:39)
[2024-11-10 08:41] LABS: INR 1.8; Prothrombin Time 21.2 Seconds (11.1-14.7)
--- NOTE | 2024-11-10 09:54 | P.PNIM_ITS ---
Progress Note: A&P Assessment and Plan (1) Heart failure with reduced ejection fraction: Code(s): I50.20 - Unspecified systolic (congestive) heart failure Status: Acute Assessment and Plan: * BNP 2285>1870 * Echocardiogram: Summary 1. Complete two-dimensional, color flow and Doppler transthoracic echocardiogram is performed. 2. Left ventricular chamber dimension is normal. 3. Left ventricular systolic function is normal, estimated at 60-65%. 4. The left ventricular diastolic function is abnormal. 5. E/e' 16 is elevated. 6. Atrial fibrillation. 7. Left atrial chamber dimension is moderately enlarged. 8. Right atrial chamber dimension is mildly enlarged. 9. There is mild aortic valve sclerosis. 10. There is trace mitral valve regurgitation. 11. No pulmonary hypertension, estimated pulmonary arterial systolic pressure is 30 mmHg. 12. There is trivial pericardial effusion. * Furosemide 40 mg ivp BID. * Daily weights. * Strict I&O's. (2) Paroxysmal atrial fibrillation: Code(s): I48.0 - Paroxysmal atrial fibrillation Status: Chronic Assessment and Plan: * Patient was taking Eliquis 5 mg PO BID for one month, stopped on 11/09 and started back on Coumadin. LE dopplers positive for a DVT LLE. Switched on 11/09 to Enoxaprin 120 mg subq q 12 and increase Coumadin 7 mg PO daily. * Metoprolol Succinate 200 mg PO daily. (3) COPD (chronic obstructive pulmonary disease): Code(s): J44.9 - Chronic obstructive pulmonary disease, unspecified Status: Acute Assessment and Plan: * Azithromycin 500 mg IVPB q 24. * Ceftriaxone 2 gram IVPB q 24. * Guaifenesin 1,200 mg PO BID. * Incentive Spirometer. * Ipratropium 0.5 mg Neb q 4. * WBC improving from 15.7>14.1. * ABG: pH 7.438, pC02 36.1, p02 59.9, 02 saturation 92.0. * Pulmonology consult. (4) ZARAGOZA (dyspnea on exertion): Code(s): R06.09 - Other forms of dyspnea Status: Acute Assessment and Plan: * D dimer 1.70. Chest CTA negative. * LE dopplers:IMPRESSION: 1. No deep venous thrombosis within the right lower extremity. 2.. Venous thrombosis of the posterior tibial and peroneal veins in the left lower extremity. * Pulmonology consult, appreciate recommendations. * Better. She was on higher AirVO up to 75%, now weaned to 60%, and still 50 L/minute. (5) Deep vein thrombosis (DVT) of left lower extremity: Code(s): I82.402 - Acute embolism and thrombosis of unspecified deep veins of left lower extremity Status: Acute Assessment and Plan: * LE doppler: IMPRESSION: 1. No deep venous thrombosis within the right lower extremity. 2.. Venous thrombosis of the posterior tibial and peroneal veins in the left lower extremity. * Patient reported that she was previously on Coumadin. Patient switched to Eliquis a month ago. Patient reports compliance with Eliquis. * Stopped Eliquis on 11/09 and restarted Warfarin with Lovenox bridge. * Start Lovenox 120 mg subq q12. INR 1.8. Increase Warfarin 7 mg PO daily. * Monitor PT/INR daily. (6) Abdominal pain: Code(s): R10.9 - Unspecified abdominal pain Status: Acute Assessment and Plan: * Chest Abdomen/pelvis showed: IMPRESSION: Small left-sided pleural effusion with adjacent compressive atelectasis. Small pericardial effusion. Global enlargement of the bilateral ovaries and uterus, abnormal for a patient of this age. Fatty infiltration of an enlarged liver. * Abdominal US: IMPRESSION: Heterogeneous endometrial tissue which may indicate endometrial masses ,debris or hematoma. Further evaluation advised. Otherwise, normal pelvic ultrasound. * RESEARCH SUPPORT SPECIALIST consult, appreciate recommendations. * MR pelvis with and without contrast ordered for further evaluation. (7) DM2 (diabetes mellitus, type 2): Qualifiers: Diabetes mellitus complication detail: with other circulatory complications Diabetes mellitus complication status: with circulatory complication Code(s): E11.9 - Type 2 diabetes mellitus without complications Status: Chronic Assessment and Plan: * Accuchecks, SSI, and hypoglycemic protocol. * HgbA1C 9.1% on 08/30/24. Plan This is a 69-year-old female with a history of morbid obesity with BMI 48, heart failure with reduced ejection fraction and combined diastolic dysfunction, COPD, prior tobacco dependence, [id number] diabetes mellitus, CKD stage 3, gout, paroxysmal AFib on Eliquis, hypertension, hyperlipidemia she presented to [facility] on 11/08/2024 with complaint of neck pain which had been going on for about 3 days. She denied any prior trauma or surgery. However that pain resolved and she developed left upper quadrant pain. She also reported shortness of breath to the ER physician however upon arrival to [place] she denied it albeit was in clear respiratory distress. She also admits to nausea but no vomiting. 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 She otherwise has not had any increase distension of her abdomen. She does not know if she has gained weight, she has swelling on her legs per reports that her usual. Evaluation at [place] [facility] revealed atrial fibrillation rate controlled, tachypnea, blood pressure 119/75, saturating 93% on room air. WBC count 15.7, sodium 133, potassium 3.3, chloride 95, BUN 19, serum creatinine 1.50, glucose 428 than 339, lactic acid 2.7 then 3.1. She received a diuretic but did not urinate in response. Troponin 76.6>80.5>0.026. High limit of normal is 60.4. CRP 23, BNP 2285, EKG without any acute ischemia. A subsequent CT chest abdomen pelvis with contrast revealed a small left-sided pleural effusion with adjacent compressive atelectasis, small pericardial effusion, lobe enlargement of bilateral ovaries and uterus, fatty infiltration of an enlarged liver. She was subsequently transferred to [place] for further evaluation and treatment. Subjective Date/time seen: 11/10/24 09:54 Interval history: Patient sitting on the side of the bed. Patient reports that breathing is improving. Patient denies chest pain, palpitations, headache, dizziness, nausea, or vomiting. Patient report pain in left side is an 8 , frequent, and aching. Review of Systems Review of Systems: All systems reviewed & are unremarkable except as noted in HPI and below Exam Const: General: no acute distress and uncomfortable Resp: Effort & Inspection: normal respiratory effort Auscultation: diminished lung sounds Cardio: Rhythm: abnormal rhythm (Afib 87) irregularly irregular GI: GI Palp: Yes Soft to palpation and Yes Tenderness to palpation present (GI) (left upper abdomen) Auscultation: normal bowel sounds Neuro: Speech: normal speech Extrem: General: pedal edema bilaterally 2+ Psych: Mental Status: mental status grossly normal Affect: normal affect Objective Data Vital Signs Vital Signs: Vital Signs - 24 hr 11/09/24 10:00 11/09/24 11:42 11/09/24 12:00 Temperature 98.2 F Pulse Rate 83 95 Respiratory Rate 33 H Blood Pressure 132/81 Pulse Oximetry 93 90 Oxygen Delivery Nasal Cannula Oxygen Flow Rate 6 Fraction of Inspired Oxygen 11/09/24 12:00 11/09/24 13:25 11/09/24 14:00 Temperature Pulse Rate 106 H 99 102 H Respiratory Rate 24 H Blood Pressure Pulse Oximetry Oxygen Delivery Oxygen Flow Rate Fraction of Inspired Oxygen 11/09/24 14:05 11/09/24 15:46 11/09/24 16:00 Temperature 98.6 F Pulse Rate 106 H Respiratory Rate 34 H Blood Pressure 140/78 Pulse Oximetry 92 92 90 Oxygen Delivery Nasal Cannula Nasal Cannula Oxygen Flow Rate 8 9 Fraction of Inspired Oxygen 11/09/24 16:00 11/09/24 16:06 11/09/24 16:20 Temperature Pulse Rate 118 H 106 H 111 H Respiratory Rate 24 H 24 H Blood Pressure Pulse Oximetry Oxygen Delivery Oxygen Flow Rate Fraction of Inspired Oxygen 11/09/24 16:29 11/09/24 17:23 11/09/24 18:00 Temperature Pulse Rate 100 Respiratory Rate Blood Pressure Pulse Oximetry 93 92 Oxygen Delivery High Flow Nasal Cannula High Flow Therapy with Na Oxygen Flow Rate 9 50 Fraction of Inspired Oxygen 60 11/09/24 19:55 11/09/24 19:55 11/09/24 20:00 Temperature 98 F Pulse Rate 92 92 109 H Respiratory Rate 18 18 24 H Blood Pressure 150/81 H Pulse Oximetry 91 93 Oxygen Delivery High Flow Therapy with Na Oxygen Flow Rate 50 Fraction of Inspired Oxygen 64 11/09/24 20:00 11/09/24 20:00 11/09/24 21:44 Temperature Pulse Rate 115 H 98 Respiratory Rate Blood Pressure Pulse Oximetry 91 Oxygen Delivery High Flow Therapy with Na Oxygen Flow Rate 50 Fraction of Inspired Oxygen 65 11/09/24 23:35 11/10/24 00:00 11/10/24 00:00 Temperature 97.8 F Pulse Rate 93 102 H Respiratory Rate 24 H Blood Pressure 121/69 Pulse Oximetry 91 90 Oxygen Delivery High Flow Therapy with Na Oxygen Flow Rate 50 Fraction of Inspired Oxygen 65 11/10/24 00:06 11/10/24 00:06 11/10/24 00:20 Temperature Pulse Rate 94 94 101 H Respiratory Rate 24 H 24 H 28 H Blood Pressure Pulse Oximetry 91 Oxygen Delivery High Flow Therapy with Na Oxygen Flow Rate 25 Fraction of Inspired Oxygen 65 11/10/24 00:30 11/10/24 02:00 11/10/24 03:56 Temperature Pulse Rate 99 104 H 111 H Respiratory Rate 28 H 24 H Blood Pressure Pulse Oximetry 92 Oxygen Delivery High Flow Therapy with Na Oxygen Flow Rate 30 Fraction of Inspired Oxygen 75 11/10/24 03:56 11/10/24 04:00 11/10/24 04:00 Temperature Pulse Rate 111 H 100 Respiratory Rate 24 H Blood Pressure Pulse Oximetry 91 93 Oxygen Delivery High Flow Therapy with Na High Flow Therapy with Na Oxygen Flow Rate 50 50 Fraction of Inspired Oxygen 75 75 11/10/24 04:00 11/10/24 04:15 11/10/24 05:53 Temperature 97.8 F Pulse Rate 103 H 98 99 Respiratory Rate 24 H 24 H Blood Pressure 155/88 H Pulse Oximetry 92 Oxygen Delivery Oxygen Flow Rate Fraction of Inspired Oxygen 11/10/24 07:10 11/10/24 07:10 11/10/24 07:23 Temperature Pulse Rate 105 H 112 H Respiratory Rate 24 H 24 H Blood Pressure Pulse Oximetry 92 Oxygen Delivery High Flow Therapy with Na Oxygen Flow Rate 50 Fraction of Inspired Oxygen 75 11/10/24 07:59 11/10/24 08:15 11/10/24 08:15 Temperature 98.2 F Pulse Rate 109 H 104 H 104 H Respiratory Rate 32 H Blood Pressure 146/99 H Pulse Oximetry 93 Oxygen Delivery Oxygen Flow Rate Fraction of Inspired Oxygen Intake/Output Intake/Output: Intake & Output 11/07/24 11/08/24 11/09/24 11/10/24 23:59 23:59 23:59 23:59 Intake Total 590 720 Output Total 750 350 Balance -160 370 Meds/Results Medications: Active Medications Generic Name Dose Route Start Last Admin Trade Name Freq PRN Reason Stop Dose Admin Acetaminophen 650 mg 11/09/24 01:03 Acetaminophen 325 Mg Tablet PO Q4H PRN Mild Pain (1-3) or Fever Amlodipine Besylate 10 mg 11/10/24 09:00 11/10/24 08:39 Amlodipine Besylate 10 Mg Tablet PO 10 mg DAILY MASTER Administration Dextrose 12.5 gm 11/09/24 01:01 Dextrose 50% 25 Gm/50 Ml Syringe IV PUSH PRN PRN Hypoglycemia Protocol Diclofenac Sodium 1 applic 11/09/24 17:00 11/10/24 08:16 Diclofenac Sodium 1% 100 Gm Gel (*Bkc) TOPICAL 1 applic TID MASTER Administration Digoxin 125 mcg 11/09/24 09:00 11/10/24 08:15 Digoxin Tab 125 Mcg Tablet PO 125 mcg DAILY MASTER Administration Enoxaparin Sodium 120 mg 11/09/24 17:00 11/10/24 05:06 Enoxaparin 120 Mg/0.8 Ml Syringe SUB-Q 120 mg Q12H MASTER Administration Furosemide 40 mg 11/09/24 09:00 11/10/24 08:16 Furosemide Inj 40 Mg/4 Ml Vial IV PUSH 40 mg BID MASTER Administration Gabapentin 300 mg 11/09/24 09:00 11/10/24 08:15 Gabapentin 300 Mg Capsule BY MOUTH 300 mg TID MASTER Administration Glucose 15 gm 11/09/24 01:01 Glucose Oral Gel 15 Gm Of Glucse In 37.5 Gm Tube PO PRN PRN Hypoglycemia Protocol Guaifenesin 1,200 mg 11/09/24 21:00 11/10/24 08:13 Guaifenesin 12 Hr 600 Mg Tabcr PO 11/16/24 20:59 1,200 mg Q12HR MASTER Administration Dextrose 1,000 mls @ 100 mls/hr 11/09/24 01:01 Dextrose 5% 1,000 Ml IVPB PRN PRN Hypoglycemia Protocol Ceftriaxone Sodium 2 gm in 100 mls @ 200 mls/hr 11/09/24 04:00 11/10/24 05:05 Rocephin 2 Gm/Ns 100 Ml IVPB Infused Q24H MASTER Infusion Azithromycin 500 mg in 250 mls @ 250 mls/hr 11/09/24 05:00 11/10/24 06:09 Zithromax IVPB Infused Q24H MASTER Infusion Insulin Aspart 2 - 5 units 11/09/24 08:00 11/10/24 08:21 Insulin Aspart (*Bkc) 100 Units/Ml SUB-Q 3 units TIDWM MASTER Administration Protocol Insulin Aspart 1 - 2 units 11/09/24 21:00 11/09/24 21:42 Insulin Aspart (*Bkc) 100 Units/Ml SUB-Q 1 units HS MASTER Administration Protocol Ipratropium [place] 0.5 mg 11/09/24 01:00 11/10/24 07:09 Ipratropium Br 0.02% Inh Soln 0.5 Mg/2.5 Ml Vial INHALATION 0.5 mg Q4HRT MASTER Administration Metoprolol Succinate 200 mg 11/09/24 09:00 11/10/24 08:15 Metoprolol Succinate Ext Rel 100 Mg Tabcr PO 200 mg DAILY MASTER Administration Miscellaneous Information 0 each 11/09/24 00:01 Diclofenac Add Site Of Use XX 12/09/24 00:00 [facility] Morphine Sulfate 2 mg 11/09/24 01:03 11/10/24 03:37 Morphine Sulfate (*Crx) 2 Mg/Ml Inj IV PUSH 2 mg Q4H PRN Administration Pain Rated 7-10 Perflutren Lipid Microsphere 0 ml 11/09/24 00:58 Perflutren Lipid Microspheres 1.5 Ml Vial Diluted To 10 Ml Total Volume IV PUSH 11/12/24 00:58 ONCE PRN adequate visualization Protocol Tramadol HCl 25 mg 11/09/24 01:03 11/10/24 08:13 Tramadol Hcl (*Crx) 25 Mg Tablet PO 25 mg Q4H PRN Administration Pain Rated 4-6 Warfarin Sodium 5 mg 11/09/24 17:55 11/09/24 18:47 Warfarin (*Pbkc) 5 Mg Tablet PO 5 mg DAILY@1700 [facility] Administration Radiology Results: ITS Impressions Chest X-Ray 11/09/24 08:30 Impression: 1: Cardiomegaly with mild interstitial edema. Chest CTA 11/09/24 11:12 Impression: No evidence of pulmonary embolus, aortic dissection, or aortic aneurysm. Minimal pericardial effusion. Small to moderate left pleural effusion and small right pleural effusion, with bilateral atelectatic change, left worse than right. Venous Doppler Study 11/09/24 16:04 IMPRESSION: 1. No deep venous thrombosis within the right lower extremity. 2.. Venous thrombosis of the posterior tibial and peroneal veins in the left lower extremity. Pelvis Ultrasound 11/09/24 16:35 IMPRESSION: Heterogeneous endometrial tissue which may indicate endometrial masses ,debris or hematoma. Further evaluation advised. Otherwise, normal pelvic ultrasound. Labs Labs: Laboratory Results - last 24 hr 11/09/24 11/09/24 11/09/24 11:19 15:29 16:35 WBC RBC Hgb Hct MCV MCH MCHC RDW Plt Count MPV Immature Gran % (Auto) Neut % (Auto) Lymph % (Auto) Wilson % (Auto) Eos % (Auto) Baso % (Auto) Lymph # (Auto) Wilson # (Auto) Eos # (Auto) Baso # (Auto) Abs Immat Gran (auto) Absolute Neuts (auto) Absolute Nucleated RBC Nucleated RBC % PT INR APTT Sodium Potassium Chloride Carbon Dioxide Anion Gap BUN Creatinine Estim Creat Clear Calc Estimated GFR Glucose POC Capillary Glucose 342 H 306 H 336 H Calcium Magnesium Total Bilirubin AST ALT Alkaline Phosphatase NT-Pro-B Natriuret Pep Total Protein Albumin 11/09/24 11/09/24 11/09/24 17:01 17:02 21:04 WBC RBC Hgb Hct MCV MCH MCHC RDW Plt Count MPV Immature Gran % (Auto) Neut % (Auto) Lymph % (Auto) Wilson % (Auto) Eos % (Auto) Baso % (Auto) Lymph # (Auto) Wilson # (Auto) Eos # (Auto) Baso # (Auto) Abs Immat Gran (auto) Absolute Neuts (auto) Absolute Nucleated RBC Nucleated RBC % PT 22.3 H INR 1.9 APTT 44.0 H Sodium Potassium Chloride Carbon Dioxide Anion Gap BUN Creatinine Estim Creat Clear Calc Estimated GFR Glucose POC Capillary Glucose 274 H Calcium Magnesium Total Bilirubin AST ALT Alkaline Phosphatase NT-Pro-B Natriuret Pep 1870 H Total Protein Albumin 11/10/24 11/10/24 11/10/24 04:43 07:38 07:39 WBC 13.4 H RBC 4.29 Hgb 13.0 Hct 38.6 MCV 90.0 MCH 30.3 MCHC 33.7 RDW 14.2 Plt Count 231 MPV 11.4 H Immature Gran % (Auto) 0.6 H Neut % (Auto) 88.1 H Lymph % (Auto) 4.7 L Wilson % (Auto) 6.2 Eos % (Auto) 0.1 Baso % (Auto) 0.3 Lymph # (Auto) 0.63 L Wilson # (Auto) 0.8 H Eos # (Auto) 0.0 Baso # (Auto) 0.0 Abs Immat Gran (auto) 0.08 H Absolute Neuts (auto) 11.8 H Absolute Nucleated RBC 0.000 Nucleated RBC % 0.0 PT 21.2 H INR 1.8 APTT Sodium 132 L Potassium 3.6 Chloride 93 L Carbon Dioxide 26 Anion Gap 13 H BUN 25 H Creatinine 1.33 H Estim Creat Clear Calc 45 Estimated GFR 39 L Glucose 275 H POC Capillary Glucose 280 H Calcium 8.8 Magnesium 1.7 Total Bilirubin 1.1 AST 33 ALT 41 H Alkaline Phosphatase 93 NT-Pro-B Natriuret Pep Total Protein 7.0 Albumin 3.9 Quality VTE Prophylaxis VTE prophylaxis: pharmacologic ordered
[2024-11-10 12:06] LABS: Glucose Point of Care 331 mg/dl (65-105)
[2024-11-10] MEDS: polyethylene glycoL 3350 17 GM POWD.PACK PO (12:12)
--- NOTE | 2024-11-10 14:09 | PM.PNPUL ---
Progress Note: A&P Assessment and Plan (1) Acute hypoxemic respiratory failure: Code(s): J96.01 - Acute respiratory failure with hypoxia Status: Acute Assessment and Plan: Does not use oxygen at home, had increased O2 need yesterday, still on significant amounts She can have this weaned. she is using AirVo because this gives some help with wowrk of breathing and is better tolerated; patient gets anxious easily. No elevation of pCO2 so she did not need BiPAP. Cause for acute hypoxemic respiratory failure is not clear. She has small pleural effusions, CTA was negative for a pulmonary embolus but she does have acute thrombus in the left lower leg. May be COPD exacerbation. (2) Chronic obstructive pulmonary disease: Code(s): J44.9 - Chronic obstructive pulmonary disease, unspecified Status: Chronic Assessment and Plan: Diagnosed 5 years ago, med list shows Breztri and albuterol. One of her clinic notes said she is not using the Breztri regularly. She is a lifelong never smoker but she has had secondhand smoke from her parents, her ex- smoked heavily however they have not been together for 35 years. She did not have any occupational exposure. She will continue bronchodilators. (3) Deep vein thrombosis (DVT) of left lower extremity: Code(s): I82.402 - Acute embolism and thrombosis of unspecified deep veins of left lower extremity Status: Acute Assessment and Plan: Eliquis stopped, full dose Lovenox started 120 mg subQ Q 12 hours. She failed Eliquis out patient. (4) Shortness of breath: Code(s): R06.02 - Shortness of breath Status: Inactive Assessment and Plan: 11/09 Severe today, improved. She is resting with better saturation using the AirVo 50 L/min and 60%, saturation is 92%. 11/10 Better. She was on higher AirVO up to 75%, now weaned to 60%, and still 50 L/minuite. . Subjective Date/time seen: 11/10/24 10:45 Interval history: 11/10/24; follow up; She feels better, now having her AirVo weaned. FiO2 was 75%, now 60%. She sat on the side of the bed for an hour and half, did not want to get into the chair. 11/09/24, new consult; Columba Voss is a 69-year-old female with atrial fib for the last 5 years has been well managed with Coumadin. She has COPD, uses Breztri and albuterol. About a month ago, her rural carrier associate switched her to a Eliquis. Night before last she developed neck pain, very uncomfortable, worse when she was sleeping in bed so she got up and slept in the recliner. The next day the pain in the neck had moved down to her ribs. She was increasingly short of breath, presented at [facility] complaining of LUQ pain. She had nausea, no vomiting, no appetite for a week before arrival. She was in atrial fibrillation, 93% on room air. WBC was high 15.7. Lactic acid 2.7, She had a small left pleural effusion. She was transferred to [place], now in IMU, has increased respiratory distress with increased requirement of oxygen up to 9 L a minute. Testing today 11/09 : Venous thrombosis of the posterior tibial and peroneal veins in the left lower extremity. CTA showed no PE; moderate LEft pleural effusion and left atelectasis. She is already on Eliquis 5 mg bid for atrial fib. She is more short of breath today, now on 9 L. She had decreased appetite before admission, increased welling in both legs. 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 Has not worked for [employer]. She had no occupational exposure to vapors, dusts, fumes, asbestos. PMH: Decreased LV function, diastolic dysfunction, (+) home sleep test not on treatment. COPD. No tobacco. Lots of second hand tobacco per family. DM on insulin, CKD stage 3. DATA * 11/09/24 LE Dopplers; No deep venous thrombosis within the right lower extremity. Venous thrombosis of the posterior tibial and peroneal veins in the left lower extremity. * 11/09/24 CTA -No evidence of pulmonary embolus, aortic dissection, or aortic aneurysm. Minimal pericardial effusion. Small to moderate left pleural effusion and small right pleural effusion, with bilateral atelectatic change, left worse than right. Review of Systems Review of Systems: All systems reviewed & are unremarkable except as noted in HPI and below Exam Narrative: GEN: alert, not drowsy as she was yesterday; wearing AirVo HEENT: pupils are equal, EOMI, symmetrical face; oral membranes dry, Mallampati III airway NECK: Trachea is midline CHEST: Equal air entry, symmetric excursion, decreased breath sounds CV: Regular S1S2 no m/g/r ABD : (+) bowel sounds, soft. Extremities : no clubbing, no cyanosis, 4+ edema in lower legs, 1+ in hands PSYCH: Follows commands Objective Data Vital Signs Vital Signs: Vital Signs - 24 hr 11/09/24 15:46 11/09/24 16:00 11/09/24 16:00 Temperature 37.0 C Pulse Rate 106 H 118 H Respiratory Rate 34 H Blood Pressure 140/78 Pulse Oximetry 92 90 Oxygen Delivery Nasal Cannula Oxygen Flow Rate 9 Fraction of Inspired Oxygen 11/09/24 16:06 11/09/24 16:20 11/09/24 16:29 Temperature Pulse Rate 106 H 111 H Respiratory Rate 24 H 24 H Blood Pressure Pulse Oximetry 93 Oxygen Delivery High Flow Nasal Cannula Oxygen Flow Rate 9 Fraction of Inspired Oxygen 11/09/24 17:23 11/09/24 18:00 11/09/24 19:55 Temperature Pulse Rate 100 92 Respiratory Rate 18 Blood Pressure Pulse Oximetry 92 91 Oxygen Delivery High Flow Therapy with Na High Flow Therapy with Na Oxygen Flow Rate 50 50 Fraction of Inspired Oxygen 60 64 11/09/24 19:55 11/09/24 20:00 11/09/24 20:00 Temperature 36.6 C Pulse Rate 92 109 H Respiratory Rate 18 24 H Blood Pressure 150/81 H Pulse Oximetry 93 91 Oxygen Delivery High Flow Therapy with Na Oxygen Flow Rate 50 Fraction of Inspired Oxygen 65 11/09/24 20:00 11/09/24 21:44 11/09/24 23:35 Temperature Pulse Rate 115 H 98 Respiratory Rate Blood Pressure Pulse Oximetry 91 Oxygen Delivery High Flow Therapy with Na Oxygen Flow Rate 50 Fraction of Inspired Oxygen 65 11/10/24 00:00 11/10/24 00:00 11/10/24 00:06 Temperature 36.6 C Pulse Rate 93 102 H 94 Respiratory Rate 24 H 24 H Blood Pressure 121/69 Pulse Oximetry 90 91 Oxygen Delivery High Flow Therapy with Na Oxygen Flow Rate 25 Fraction of Inspired Oxygen 65 11/10/24 00:06 11/10/24 00:20 11/10/24 00:30 Temperature Pulse Rate 94 101 H 99 Respiratory Rate 24 H 28 H 28 H Blood Pressure Pulse Oximetry 92 Oxygen Delivery High Flow Therapy with Na Oxygen Flow Rate 30 Fraction of Inspired Oxygen 75 11/10/24 02:00 11/10/24 03:56 11/10/24 03:56 Temperature Pulse Rate 104 H 111 H 111 H Respiratory Rate 24 H 24 H Blood Pressure Pulse Oximetry 91 Oxygen Delivery High Flow Therapy with Na Oxygen Flow Rate 50 Fraction of Inspired Oxygen 75 11/10/24 04:00 11/10/24 04:00 11/10/24 04:00 Temperature 36.6 C Pulse Rate 100 103 H Respiratory Rate 24 H Blood Pressure 155/88 H Pulse Oximetry 93 92 Oxygen Delivery High Flow Therapy with Na Oxygen Flow Rate 50 Fraction of Inspired Oxygen 75 11/10/24 04:15 11/10/24 05:53 11/10/24 07:10 Temperature Pulse Rate 98 99 Respiratory Rate 24 H Blood Pressure Pulse Oximetry 92 Oxygen Delivery High Flow Therapy with Na Oxygen Flow Rate 50 Fraction of Inspired Oxygen 75 11/10/24 07:10 11/10/24 07:23 11/10/24 07:59 Temperature 36.8 C Pulse Rate 105 H 112 H 109 H Respiratory Rate 24 H 24 H 32 H Blood Pressure 146/99 H Pulse Oximetry 93 Oxygen Delivery Oxygen Flow Rate Fraction of Inspired Oxygen 11/10/24 08:00 11/10/24 08:15 11/10/24 08:15 Temperature Pulse Rate 106 H 104 H 104 H Respiratory Rate Blood Pressure Pulse Oximetry Oxygen Delivery Oxygen Flow Rate Fraction of Inspired Oxygen 11/10/24 10:00 11/10/24 12:00 11/10/24 12:00 Temperature 36.5 C Pulse Rate 91 89 98 Respiratory Rate 34 H Blood Pressure 138/82 Pulse Oximetry 91 Oxygen Delivery Oxygen Flow Rate Fraction of Inspired Oxygen 11/10/24 12:53 11/10/24 12:53 11/10/24 13:04 Temperature Pulse Rate 92 86 Respiratory Rate 24 H 24 H Blood Pressure Pulse Oximetry 94 Oxygen Delivery High Flow Therapy with Na Oxygen Flow Rate 50 Fraction of Inspired Oxygen 73 Intake/Output Intake/Output: Intake & Output 11/07/24 11/08/24 11/09/24 11/10/24 23:59 23:59 23:59 23:59 Intake Total 590 720 Output Total 750 350 Balance -160 370 Meds/Results Medications: Active Medications Generic Name Dose Route Start Last Admin Trade Name Freq PRN Reason Stop Dose Admin Acetaminophen 650 mg 11/09/24 01:03 Acetaminophen 325 Mg Tablet PO Q4H PRN Mild Pain (1-3) or Fever Amlodipine Besylate 10 mg 11/10/24 09:00 11/10/24 08:39 Amlodipine Besylate 10 Mg Tablet PO 10 mg DAILY MASTER Administration Dextrose 12.5 gm 11/09/24 01:01 Dextrose 50% 25 Gm/50 Ml Syringe IV PUSH PRN PRN Hypoglycemia Protocol Diclofenac Sodium 1 applic 11/09/24 17:00 11/10/24 12:18 Diclofenac Sodium 1% 100 Gm Gel (*Bkc) TOPICAL 1 applic TID MASTER Administration Digoxin 125 mcg 11/09/24 09:00 11/10/24 08:15 Digoxin Tab 125 Mcg Tablet PO 125 mcg DAILY MASTER Administration Docusate Sodium 100 mg 11/10/24 09:55 Docusate Sodium 100 Mg Capsule PO Q12H PRN Constipation Enoxaparin Sodium 120 mg 11/09/24 17:00 11/10/24 05:06 Enoxaparin 120 Mg/0.8 Ml Syringe SUB-Q 120 mg Q12H MASTER Administration Furosemide 40 mg 11/09/24 09:00 11/10/24 08:16 Furosemide Inj 40 Mg/4 Ml Vial IV PUSH 40 mg BID MASTER Administration Gabapentin 300 mg 11/09/24 09:00 11/10/24 12:12 Gabapentin 300 Mg Capsule BY MOUTH 300 mg TID MASTER Administration Glucose 15 gm 11/09/24 01:01 Glucose Oral Gel 15 Gm Of Glucse In 37.5 Gm Tube PO PRN PRN Hypoglycemia Protocol Guaifenesin 1,200 mg 11/09/24 21:00 11/10/24 08:13 Guaifenesin 12 Hr 600 Mg Tabcr PO 11/16/24 20:59 1,200 mg Q12HR MASTER Administration Dextrose 1,000 mls @ 100 mls/hr 11/09/24 01:01 Dextrose 5% 1,000 Ml IVPB PRN PRN Hypoglycemia Protocol Ceftriaxone Sodium 2 gm in 100 mls @ 200 mls/hr 11/09/24 04:00 11/10/24 05:05 Rocephin 2 Gm/Ns 100 Ml IVPB Infused Q24H MASTER Infusion Azithromycin 500 mg in 250 mls @ 250 mls/hr 11/09/24 05:00 11/10/24 06:09 Zithromax IVPB Infused Q24H MASTER Infusion Insulin Aspart 2 - 5 units 11/09/24 08:00 11/10/24 12:12 Insulin Aspart (*Bkc) 100 Units/Ml SUB-Q 4 units TIDWM MASTER Administration Protocol Insulin Aspart 1 - 2 units 11/09/24 21:00 11/09/24 21:42 Insulin Aspart (*Bkc) 100 Units/Ml SUB-Q 1 units HS MASTER Administration Protocol Ipratropium [place] 0.5 mg 11/09/24 01:00 11/10/24 12:53 Ipratropium Br 0.02% Inh Soln 0.5 Mg/2.5 Ml Vial INHALATION 0.5 mg Q4HRT MASTER Administration Metoprolol Succinate 200 mg 11/09/24 09:00 11/10/24 08:15 Metoprolol Succinate Ext Rel 100 Mg Tabcr PO 200 mg DAILY MASTER Administration Miscellaneous Information 0 each 11/09/24 00:01 Diclofenac Add Site Of Use XX 12/09/24 00:00 [facility] Morphine Sulfate 2 mg 11/09/24 01:03 11/10/24 03:37 Morphine Sulfate (*Crx) 2 Mg/Ml Inj IV PUSH 2 mg Q4H PRN Administration Pain Rated 7-10 Perflutren Lipid Microsphere 0 ml 11/09/24 00:58 Perflutren Lipid Microspheres 1.5 Ml Vial Diluted To 10 Ml Total Volume IV PUSH 11/12/24 00:58 ONCE PRN adequate visualization Protocol Polyethylene Glycol 17 gm 11/10/24 09:55 11/10/24 12:12 Polyethylene Glycol 3350 17 Gm Powd.Pack PO 17 gm QAM MASTER Administration Tramadol HCl 25 mg 11/09/24 01:03 11/10/24 08:13 Tramadol Hcl (*Crx) 25 Mg Tablet PO 25 mg Q4H PRN Administration Pain Rated 4-6 Warfarin Sodium 5 mg 11/10/24 17:00 Warfarin (*Pbkc) 5 Mg Tablet PO DAILY@1700 MASTER Warfarin Sodium 2 mg 11/10/24 17:00 Warfarin (*Pbkc) 2 Mg Tablet PO DAILY@1700 [facility] Radiology Results: ITS Impressions Chest X-Ray 11/09/24 08:30 Impression: 1: Cardiomegaly with mild interstitial edema. Chest CTA 11/09/24 11:12 Impression: No evidence of pulmonary embolus, aortic dissection, or aortic aneurysm. Minimal pericardial effusion. Small to moderate left pleural effusion and small right pleural effusion, with bilateral atelectatic change, left worse than right. Venous Doppler Study 11/09/24 16:04 IMPRESSION: 1. No deep venous thrombosis within the right lower extremity. 2.. Venous thrombosis of the posterior tibial and peroneal veins in the left lower extremity. Pelvis Ultrasound 11/09/24 16:35 IMPRESSION: Heterogeneous endometrial tissue which may indicate endometrial masses ,debris or hematoma. Further evaluation advised. Otherwise, normal pelvic ultrasound. Labs Labs: Laboratory Results - last 24 hr 11/09/24 11/09/24 11/09/24 15:29 16:35 17:01 WBC RBC Hgb Hct MCV MCH MCHC RDW Plt Count MPV Immature Gran % (Auto) Neut % (Auto) Lymph % (Auto) Cole % (Auto) Eos % (Auto) Baso % (Auto) Lymph # (Auto) Cole # (Auto) Eos # (Auto) Baso # (Auto) Abs Immat Gran (auto) Absolute Neuts (auto) Absolute Nucleated RBC Nucleated RBC % PT 22.3 H INR 1.9 APTT 44.0 H Sodium Potassium Chloride Carbon Dioxide Anion Gap BUN Creatinine Estim Creat Clear Calc Estimated GFR Glucose POC Capillary Glucose 306 H 336 H Calcium Magnesium Total Bilirubin AST ALT Alkaline Phosphatase NT-Pro-B Natriuret Pep Total Protein Albumin 11/09/24 11/09/24 11/10/24 17:02 21:04 04:43 WBC 13.4 H RBC 4.29 Hgb 13.0 Hct 38.6 MCV 90.0 MCH 30.3 MCHC 33.7 RDW 14.2 Plt Count 231 MPV 11.4 H Immature Gran % (Auto) 0.6 H Neut % (Auto) 88.1 H Lymph % (Auto) 4.7 L Cole % (Auto) 6.2 Eos % (Auto) 0.1 Baso % (Auto) 0.3 Lymph # (Auto) 0.63 L Cole # (Auto) 0.8 H Eos # (Auto) 0.0 Baso # (Auto) 0.0 Abs Immat Gran (auto) 0.08 H Absolute Neuts (auto) 11.8 H Absolute Nucleated RBC 0.000 Nucleated RBC % 0.0 PT INR APTT Sodium 132 L Potassium 3.6 Chloride 93 L Carbon Dioxide 26 Anion Gap 13 H BUN 25 H Creatinine 1.33 H Estim Creat Clear Calc 45 Estimated GFR 39 L Glucose 275 H POC Capillary Glucose 274 H Calcium 8.8 Magnesium 1.7 Total Bilirubin 1.1 AST 33 ALT 41 H Alkaline Phosphatase 93 NT-Pro-B Natriuret Pep 1870 H Total Protein 7.0 Albumin 3.9 11/10/24 11/10/24 11/10/24 07:38 07:39 11:36 WBC RBC Hgb Hct MCV MCH MCHC RDW Plt Count MPV Immature Gran % (Auto) Neut % (Auto) Lymph % (Auto) Cole % (Auto) Eos % (Auto) Baso % (Auto) Lymph # (Auto) Cole # (Auto) Eos # (Auto) Baso # (Auto) Abs Immat Gran (auto) Absolute Neuts (auto) Absolute Nucleated RBC Nucleated RBC % PT 21.2 H INR 1.8 APTT Sodium Potassium Chloride Carbon Dioxide Anion Gap BUN Creatinine Estim Creat Clear Calc Estimated GFR Glucose POC Capillary Glucose 280 H 331 H Calcium Magnesium Total Bilirubin AST ALT Alkaline Phosphatase NT-Pro-B Natriuret Pep Total Protein Albumin
[2024-11-10 16:15] LABS: Glucose Point of Care 292 mg/dl (65-105)
[2024-11-10] MEDS: WARFARIN (*PBKC) 2 MG TABLET PO (18:26)
[2024-11-10] MEDS: WARFARIN (*PBKC) 5 MG TABLET PO (18:26)
[2024-11-10 20:37] LABS: Glucose Point of Care 258 mg/dl (65-105)
[2024-11-11] VITALS (33 sets, daily range): BP systolic 129–153; BP diastolic 67–96; PULSE 61–114; RESP 18–32; TEMP 36.3–36.8; O2SAT 90–98
[2024-11-11] MEDS: IPRATROPIUM BR 0.02% INH SOLN 0.5 MG/2.5 ML VIAL INHALATION ×7 (00:13→23:32)
--- NOTE | 2024-11-11 01:47 | ECG_ITS ---
Test Date: 2024-11-11 02:06:06 Measurements Intervals [place] Rate: 91 P: 0 NM: 0 QRS: 0 QRSD: 110 T: -77 QT: 356 QTc: 440 Interpretive Statements ATRIAL FIBRILLATION WITH FREQUENT VENTRICULAR PREMATURE COMPLEXES INCOMPLETE LEFT BUNDLE BRANCH BLOCK POOR R WAVE PROGRESSION CONSIDER INFERIOR INFARCT, AGE INDETERMINATE BORDERLINE ST-T WAVE ABNORMALITY- HIGH LATERAL LEADS BASELINE ARTIFACT- I, II, III, AVR, AVL, AVF ABNORMAL ECG Compared to ECG 11/09/2024 05:23:37 Ventricular premature complex(es) now present INCOMPLETE LEFT BUNDLE BRANCH BLOCK NOW PRESENT Electronically Signed On 11-11-2024 07:14:19 CDT by Shaggy Jimenez D.O.
[2024-11-11] MEDS: FUROSEMIDE INJ 100 MG/10 ML VIAL 80 MG IV PUSH (02:00)
[2024-11-11 02:08] LABS: Alveolar/Arterial O2 Gradient 586.8 mmHg; Base Excess ABG 2.3 mEq/l (+/-2.0); Carboxyhemoglobin 0.7 % THb (0-2.0); Device NON-INVASIVE VENT; Fractional Inspired Oxygen 100 %; HCO3 ABG 27.3 mEq/l (22.0-26.0); Methemoglobin ABG 0.1 %THb (0-1.5); Modified Allen's Test Pass; Oxygen Content ABG 20.9 %vol (16.0-22.0); Oxygen Saturation ABG 96.2 % (95.0-100.0); Oxyhemoglobin 95.6 % THb (90.0-100.0); PCO2 ABG 43.8 mmHg (35.0-45.0); PO2 ABG 82.4 mmHg (80.0-100.0); PO2 FiO2 Ratio Arterial Blood 0.82 %; Reduced Hemoglobin 3.6 %THb (0-5.0); Site Drawn LEFT RADIAL; Total Hemoglobin 15.5 g/dL (12.0-18.0); pH ABG 7.413 (7.350-7.450)
[2024-11-11 02:09] LABS: Non-Invasive Expiratory Pressure 6 CMH2O; Non-Invasive Inspiratory Pressure 12 CMH2O; Non-Invasive Vent Rate 12 /MIN
--- NOTE | 2024-11-11 02:17 | P.PNCROSS_ITS ---
Event Note Event Note Event Note: Asked by nurse to promptly evaluate this patient for sudden increase of shortne ss of breath. She was initially admitted on 11/09/2024 with left upper abdominal pain and shortness of breath. She has been receiving Lasix 40 mg b.i.d.. She was doing relatively okay during the day and being weaned off of Airvo however she developed shortness of breath tachypnea anxiety and chest pain described as sharp. Pain located midsternum and worsened upon breathing. Patient immediately placed on BiPAP. Improved symptomatology. She has significant wet crackles diffusely. No wheezing, no stridor. Stat chest x-ray demonstrates severe pulmonary edema. Lower extremities still with 2+ pitting edema bilaterally below the knees. Daily weights and urine output unclear per the nursing team as she has been going in her depends. ABG pCO2 43.8, pH 7.413. Given Lasix 80 mg IV x1. Will continue to monitor her respiratory status as well as urine output. BiPAP will help with diuresis, will give more is needed. EKG without acute ST changes.
[2024-11-11 02:38] LABS: NT Pro B Type Natriuretic Pept 2410 pg/mL (19.9-100); Troponin I 0.019 ng/mL (0.000-0.034)
[2024-11-11] MEDS: cefTRIAXone 2 GM/NS 100 ML 2 GM/100 ML BAG IVPB (05:11)
[2024-11-11] MEDS: ENOXAPARIN 120 MG/0.8 ML SYRINGE SUB-Q ×2 (05:11→18:07)
[2024-11-11] MEDS: AZITHROMYCIN 500 MG/NS 250 ML 500 MG/250 ML BAG 250 MG IVPB (05:48)
[2024-11-11 07:55] LABS: Glucose Point of Care 234 mg/dl (65-105)
[2024-11-11 08:50] LABS: Alanine Aminotransferase 39 U/L (6-35); Albumin Level 3.5 g/dL (3.5-5.1); Alkaline Phosphatase 103 U/L (38-126); Anion Gap 10 mmol/L (4-12); Aspartate Amino Transferase 42 U/L (14-36); Bilirubin,Total 0.7 mg/dL (0.2-1.3); Blood Urea Nitrogen 30 mg/dL (7-17); Calcium 8.3 mg/dL (8.4-10.2); Carbon Dioxide 28 mmol/L (22-30); Chloride 95 mmol/L (98-107); Estimated CRCL calculation 48 ml/min; Estimated Glomerular Filt Rate 43; Glucose 183 mg/dL (65-110); Magnesium 2.4 mg/dL (1.6-2.3); Potassium 3.2 mmol/L (3.4-5.0); Sodium 133 mmol/L (137-145)
[2024-11-11 08:54] LABS: INR 1.5; Prothrombin Time 18.8 Seconds (11.1-14.7)
[2024-11-11 08:57] LABS: Basophils Percent Auto 0.5 % (0.2-1.2); Eosinophils Absolute Auto 0.1 K/mm3 (0-0.3); Eosinophils Percent Auto 1.1 % (0-4.4); Hematocrit 37.1 % (37.0-47.0); Hemoglobin 12.1 g/dL (12.0-15.0); Immature Granulocyte Absolute 0.06 K/mm3 (0.00-0.031); Immature Granulocyte Percent A 0.7 % (0-0.5); Lymphocytes Absolute Auto 0.64 K/mm3 (0.9-3.2); Lymphocytes Percent Auto 7.3 % (18.3-44.2); Mean Corpuscular HGB Conc 32.6 g/dl (32-36); Mean Corpuscular Hemoglobin 30.6 pg (26-34); Mean Corpuscular Volume 93.7 fl (80-100); Mean Platelet Volume 12.3 fl (7.4-10.4); Monocytes Absolute Auto 0.9 K/mm3 (0.1-0.6); Monocytes Percent Auto 9.8 % (2.6-8.5); Neutrophils Absolute Auto 7.1 K/mm3 (1.3-6.7); Neutrophils Percent Auto 80.6 % (45.5-73.1); Platelet Count Result 225 k/mm3 (150-375); Red Blood Count 3.96 M/mm3 (4.2-5.4); Red Cell Distribution Width 14.1 % (11.5-14.5); White Blood Count 8.8 K/mm3 (4.5-10.0)
[2024-11-11] MEDS: DICLOFENAC SODIUM 1% 100 GM GEL (*BKC) 1 APPLIC TOPICAL ×3 (09:00→17:09)
[2024-11-11] MEDS: guaiFENesin 12 HR 600 MG TABCR 1200 MG PO ×2 (09:37→20:46)
[2024-11-11] MEDS: DIGOXIN TAB 125 MCG TABLET PO (09:37)
[2024-11-11] MEDS: GABAPENTIN 300 MG CAPSULE BY MOUTH ×3 (09:37→17:09)
[2024-11-11] MEDS: POTASSIUM CHLORIDE 20 MEQ ER TABLET 40 MEQ PO ×2 (09:37→17:09)
[2024-11-11] MEDS: METOPROLOL SUCCINATE EXT REL 100 MG TABCR 200 MG PO (09:38)
[2024-11-11] MEDS: amLODIPine BESYLATE 10 MG TABLET PO (09:38)
[2024-11-11] MEDS: polyethylene glycoL 3350 17 GM POWD.PACK PO (09:38)
--- NOTE | 2024-11-11 09:51 | P.PNIM_ITS ---
Progress Note: A&P Assessment and Plan (1) Heart failure with reduced ejection fraction: Code(s): I50.20 - Unspecified systolic (congestive) heart failure Status: Acute Assessment and Plan: * BNP 2285>1870>2410. * Patient had worsening shortness of breath overnight. Patient immediately placed on BiPAP. Improved symptomatology. She has significant wet crackles diffusely. No wheezing, no stridor. Stat chest x-ray demonstrates severe pulmonary edema. Lower extremities still with 2+ pitting edema bilaterally below the knees. Daily weights and urine output unclear per the nursing team as she has been going in her depends. ABG pCO2 43.8, pH 7.413. Given Lasix 80 mg IV x1. * Echocardiogram: Summary 1. Complete two-dimensional, color flow and Doppler transthoracic echocardiogram is performed. 2. Left ventricular chamber dimension is normal. 3. Left ventricular systolic function is normal, estimated at 60-65%. 4. The left ventricular diastolic function is abnormal. 5. E/e' 16 is elevated. 6. Atrial fibrillation. 7. Left atrial chamber dimension is moderately enlarged. 8. Right atrial chamber dimension is mildly enlarged. 9. There is mild aortic valve sclerosis. 10. There is trace mitral valve regurgitation. 11. No pulmonary hypertension, estimated pulmonary arterial systolic pressure is 30 mmHg. 12. There is trivial pericardial effusion. * Furosemide 40 mg ivp BID. * Daily weights. * Strict I&O's. * Fluid restriction 1500 ml. * Cardiology consult, appreciate recommendations. (2) Paroxysmal atrial fibrillation: Code(s): I48.0 - Paroxysmal atrial fibrillation Status: Chronic Assessment and Plan: * Patient was taking Eliquis 5 mg PO BID for one month, stopped on 11/09 and started back on Coumadin. LE dopplers positive for a DVT LLE. Switched on 11/09 to Enoxaprin 120 mg subq q 12 and increase Coumadin 7 mg PO daily. * Metoprolol Succinate 200 mg PO daily. (3) COPD (chronic obstructive pulmonary disease): Code(s): J44.9 - Chronic obstructive pulmonary disease, unspecified Status: Acute Assessment and Plan: * Azithromycin 500 mg IVPB q 24. * Ceftriaxone 2 gram IVPB q 24. * Guaifenesin 1,200 mg PO BID. * Incentive Spirometer. * Ipratropium 0.5 mg Neb q 4. * WBC improving from 15.7>14.1>13.4>8.8. * ABG: pH 7.438, pC02 36.1, p02 59.9, 02 saturation 92.0. * Pulmonology consult, appreciate recommendations. (4) ZARAGOZA (dyspnea on exertion): Code(s): R06.09 - Other forms of dyspnea Status: Acute Assessment and Plan: * D dimer 1.70. Chest CTA negative. * LE dopplers:IMPRESSION: 1. No deep venous thrombosis within the right lower extremity. 2.. Venous thrombosis of the posterior tibial and peroneal veins in the left lower extremity. * Pulmonology consult, appreciate recommendations. * Better. She was on higher AirVO up to 75%, now weaned to 60%, and still 50 L/minute. (5) Deep vein thrombosis (DVT) of left lower extremity: Code(s): I82.402 - Acute embolism and thrombosis of unspecified deep veins of left lower extremity Status: Acute Assessment and Plan: * LE doppler: IMPRESSION: 1. No deep venous thrombosis within the right lower extremity. 2.. Venous thrombosis of the posterior tibial and peroneal veins in the left lower extremity. * Patient reported that she was previously on Coumadin. Patient switched to Eliquis a month ago. Patient reports compliance with Eliquis. * Stopped Eliquis on 11/09 and restarted Warfarin with Lovenox bridge. * Start Lovenox 120 mg subq q12. INR 1.5. Warfarin 7 mg PO daily. * Monitor PT/INR daily. (6) Abdominal pain: Code(s): R10.9 - Unspecified abdominal pain Status: Acute Assessment and Plan: * Chest Abdomen/pelvis showed: IMPRESSION: Small left-sided pleural effusion with adjacent compressive atelectasis. Small pericardial effusion. Global enlargement of the bilateral ovaries and uterus, abnormal for a patient of this age. Fatty infiltration of an enlarged liver. * Abdominal US: IMPRESSION: Heterogeneous endometrial tissue which may indicate endometrial masses ,debris or hematoma. Further evaluation advised. Otherwise, normal pelvic ultrasound. * DANCE COACH consult, appreciate recommendations. * MR pelvis with and without contrast ordered for further evaluation. (7) DM2 (diabetes mellitus, type 2): Qualifiers: Diabetes mellitus complication detail: with other circulatory complications Diabetes mellitus complication status: with circulatory complication Code(s): E11.9 - Type 2 diabetes mellitus without complications Status: Chronic Assessment and Plan: * Accuchecks, SSI, and hypoglycemic protocol. * HgbA1C 9.1% on 08/30/24. (8) Hypokalemia: Code(s): E87.6 - Hypokalemia Status: Acute Assessment and Plan: * Potassium 3.2. * Patient given Potassium Chloride 40 meq q4 x 2 doses. * Trend labs. Plan This is a 69-year-old female with a history of morbid obesity with BMI 48, heart failure with reduced ejection fraction and combined diastolic dysfunction, COPD, prior tobacco dependence, [id number] diabetes mellitus, CKD stage 3, gout, paroxysmal AFib on Eliquis, hypertension, hyperlipidemia she presented to [facility] on 11/08/2024 with complaint of neck pain which had been going on for about 3 days. She denied any prior trauma or surgery. However that pain resolved and she developed left upper quadrant pain. She also reported shortness of breath to the ER physician however upon arrival to [place] she denied it albeit was in clear respiratory distress. She also admits to nausea but no vomiting. Her last bowel movement was about 2 days [employer] and she usually has bowel movements every 2-3 days, that is normal for her. She otherwise has not had any increase distension of her abdomen. She does not know if she has gained weight, she has swelling on her legs per reports that her usual. Evaluation at [facility] revealed atrial fibrillation rate controlled, tachypnea, blood pressure 119/75, saturating 93% on room air. WBC count 15.7, sodium 133, potassium 3.3, chloride 95, BUN 19, serum creatinine 1.50, glucose 428 than 339, lactic acid 2.7 then 3.1. She received a diuretic but did not urinate in response. Troponin 76.6>80.5>0.026. High limit of normal is 60.4. CRP 23, BNP 2285, EKG without any acute ischemia. A subsequent CT chest abdomen pelvis with contrast revealed a small left-sided pleural effusion with adjacent compressive atelectasis, small pericardial effusion, lobe enlargement of bilateral ovaries and uterus, fatty infiltration of an enlarged liver. She was subsequently transferred to [place] for further evaluation and treatment. Subjective Date/time seen: 11/11/24 09:51 Interval history: Patient sitting up in bed. Patient reports having a bad night. Shortness of breath at times. Patient reports right sided chest pain that is a 9 , frequent, sharp, and tender to touch. Patient denies palpitations, headache, dizziness, nausea, or vomiting Review of Systems Review of Systems: All systems reviewed & are unremarkable except as noted in HPI and below Exam Const: General: no acute distress and uncomfortable Resp: Effort & Inspection: normal respiratory effort Auscultation: diminished lung sounds Cardio: Rhythm: abnormal rhythm irregularly irregular (Afib 105.) GI: GI Palp: Yes Soft to palpation Auscultation: normal bowel sounds Neuro: Speech: normal speech Extrem: General: pedal edema bilaterally 2+ Psych: Mental Status: mental status grossly normal Affect: normal affect Objective Data Vital Signs Vital Signs: Vital Signs - 24 hr 11/10/24 10:00 11/10/24 12:00 11/10/24 12:00 Temperature 97.7 F Pulse Rate 91 89 98 Respiratory Rate 34 H Blood Pressure 138/82 Pulse Oximetry 91 Oxygen Delivery Oxygen Flow Rate Fraction of Inspired Oxygen 11/10/24 12:53 11/10/24 12:53 11/10/24 13:04 Temperature Pulse Rate 92 86 Respiratory Rate 24 H 24 H Blood Pressure Pulse Oximetry 94 Oxygen Delivery High Flow Therapy with Na Oxygen Flow Rate 50 Fraction of Inspired Oxygen 73 11/10/24 14:00 11/10/24 15:46 11/10/24 15:50 Temperature 97.6 F Pulse Rate 86 100 Respiratory Rate 33 H Blood Pressure 127/67 Pulse Oximetry 91 90 Oxygen Delivery High Flow Therapy with Na Oxygen Flow Rate 50 Fraction of Inspired Oxygen 60 11/10/24 15:50 11/10/24 16:00 11/10/24 18:00 Temperature Pulse Rate 86 81 83 Respiratory Rate 24 H Blood Pressure Pulse Oximetry Oxygen Delivery Oxygen Flow Rate Fraction of Inspired Oxygen 11/10/24 20:00 11/10/24 20:00 11/10/24 20:00 Temperature 97.7 F Pulse Rate 96 90 Respiratory Rate 32 H Blood Pressure 131/77 Pulse Oximetry 94 91 Oxygen Delivery High Flow Therapy with Na Oxygen Flow Rate 50 Fraction of Inspired Oxygen 90 11/10/24 20:45 11/10/24 20:47 11/10/24 20:55 Temperature Pulse Rate 86 86 110 H Respiratory Rate 22 H 22 H 22 H Blood Pressure Pulse Oximetry 92 Oxygen Delivery High Flow Therapy with Na Oxygen Flow Rate 50 Fraction of Inspired Oxygen 90 11/10/24 22:00 11/11/24 00:00 11/11/24 00:00 Temperature 97.7 F Pulse Rate 76 85 Respiratory Rate 32 H Blood Pressure 151/94 H Pulse Oximetry 94 90 Oxygen Delivery High Flow Therapy with Na Oxygen Flow Rate 50 Fraction of Inspired Oxygen 90 11/11/24 00:00 11/11/24 00:15 11/11/24 00:40 Temperature Pulse Rate 78 75 74 Respiratory Rate 20 20 Blood Pressure Pulse Oximetry Oxygen Delivery Oxygen Flow Rate Fraction of Inspired Oxygen 11/11/24 01:45 11/11/24 02:00 11/11/24 04:00 Temperature Pulse Rate 81 Respiratory Rate 30 H Blood Pressure Pulse Oximetry 93 96 Oxygen Delivery BiPAP BiPAP Oxygen Flow Rate Fraction of Inspired Oxygen 11/11/24 04:00 11/11/24 04:00 11/11/24 04:31 Temperature 97.7 F Pulse Rate 66 61 88 Respiratory Rate 23 H Blood Pressure 153/67 H Pulse Oximetry 97 Oxygen Delivery Oxygen Flow Rate Fraction of Inspired Oxygen 11/11/24 04:33 11/11/24 04:33 11/11/24 06:00 Temperature Pulse Rate 88 Respiratory Rate 18 Blood Pressure Pulse Oximetry 97 97 Oxygen Delivery BiPAP BiPAP Oxygen Flow Rate 80 Fraction of Inspired Oxygen 11/11/24 07:39 11/11/24 07:39 11/11/24 07:39 Temperature Pulse Rate 86 86 Respiratory Rate 26 H 26 H Blood Pressure Pulse Oximetry 98 98 Oxygen Delivery BiPAP BiPAP Oxygen Flow Rate 80 Fraction of Inspired Oxygen 11/11/24 08:14 11/11/24 09:20 11/11/24 09:37 Temperature 97.5 F L Pulse Rate 104 H 93 Respiratory Rate 26 H Blood Pressure 148/75 H Pulse Oximetry 94 92 Oxygen Delivery High Flow Therapy with Na Oxygen Flow Rate 50 Fraction of Inspired Oxygen 52 11/11/24 09:38 Temperature Pulse Rate 90 Respiratory Rate Blood Pressure Pulse Oximetry Oxygen Delivery Oxygen Flow Rate Fraction of Inspired Oxygen Intake/Output Intake/Output: Intake & Output 11/08/24 11/09/24 11/10/24 11/11/24 23:59 23:59 23:59 23:59 Intake Total 590 960 550 Output Total 750 750 700 Balance -160 210 -150 Meds/Results Medications: Active Medications Generic Name Dose Route Start Last Admin Trade Name Vinnieq PRN Reason Stop Dose Admin Acetaminophen 650 mg 11/09/24 01:03 Acetaminophen 325 Mg Tablet PO Q4H PRN Mild Pain (1-3) or Fever Amlodipine Besylate 10 mg 11/10/24 09:00 11/11/24 09:38 Amlodipine Besylate 10 Mg Tablet PO 10 mg DAILY MASTER Administration Dextrose 12.5 gm 11/09/24 01:01 Dextrose 50% 25 Gm/50 Ml Syringe IV PUSH PRN PRN Hypoglycemia Protocol Diclofenac Sodium 1 applic 11/09/24 17:00 11/10/24 18:00 Diclofenac Sodium 1% 100 Gm Gel (*Bkc) TOPICAL 1 applic TID MASTER Administration Digoxin 125 mcg 11/09/24 09:00 11/11/24 09:37 Digoxin Tab 125 Mcg Tablet PO 125 mcg DAILY MASTER Administration Docusate Sodium 100 mg 11/10/24 09:55 Docusate Sodium 100 Mg Capsule PO Q12H PRN Constipation Enoxaparin Sodium 120 mg 11/09/24 17:00 11/11/24 05:11 Enoxaparin 120 Mg/0.8 Ml Syringe SUB-Q 120 mg Q12H [facility]STER Administration Furosemide 40 mg 11/09/24 09:00 11/10/24 18:25 Furosemide Inj 40 Mg/4 Ml Vial IV PUSH 40 mg BID MASTER Administration Gabapentin 300 mg 11/09/24 09:00 11/11/24 09:37 Gabapentin 300 Mg Capsule BY MOUTH 300 mg TID MASTER Administration Glucose 15 gm 11/09/24 01:01 Glucose Oral Gel 15 Gm Of Glucse In 37.5 Gm Tube PO PRN PRN Hypoglycemia Protocol Guaifenesin 1,200 mg 11/09/24 21:00 11/11/24 09:37 Guaifenesin 12 Hr 600 Mg Tabcr PO 11/16/24 20:59 1,200 mg Q12HR MASTER Administration Dextrose 1,000 mls @ 100 mls/hr 11/09/24 01:01 Dextrose 5% 1,000 Ml IVPB PRN PRN Hypoglycemia Protocol Ceftriaxone Sodium 2 gm in 100 mls @ 200 mls/hr 11/09/24 04:00 11/11/24 05:11 Rocephin 2 Gm/Ns 100 Ml IVPB 200 mls/hr Q24H [facility]STER Administration Azithromycin 500 mg in 250 mls @ 250 mls/hr 11/09/24 05:00 11/11/24 05:48 Zithromax IVPB 250 mls/hr Q24H [facility] Administration Insulin Aspart 2 - 5 units 11/09/24 08:00 11/11/24 08:33 Insulin Aspart (*Bkc) 100 Units/Ml SUB-Q Not Given TIDWM [facility] Protocol Insulin Aspart 1 - 2 units 11/09/24 21:00 11/10/24 20:40 Insulin Aspart (*Bkc) 100 Units/Ml SUB-Q 1 units HS [facility] Administration Protocol Ipratropium [place] 0.5 mg 11/09/24 01:00 11/11/24 07:39 Ipratropium Br 0.02% Inh Soln 0.5 Mg/2.5 Ml Vial INHALATION 0.5 mg Q4HRT [facility] Administration Metoprolol Succinate 200 mg 11/09/24 09:00 11/11/24 09:38 Metoprolol Succinate Ext Rel 100 Mg Tabcr PO 200 mg DAILY [facility] Administration Morphine Sulfate 2 mg 11/09/24 01:03 11/10/24 03:37 Morphine Sulfate (*Crx) 2 Mg/Ml Inj IV PUSH 2 mg Q4H PRN Administration Pain Rated 7-10 Perflutren Lipid Microsphere 0 ml 11/09/24 00:58 Perflutren Lipid Microspheres 1.5 Ml Vial Diluted To 10 Ml Total Volume IV PUSH 11/12/24 00:58 ONCE PRN adequate visualization Protocol Polyethylene Glycol 17 gm 11/10/24 09:55 11/11/24 09:38 Polyethylene Glycol 3350 17 Gm Powd.Pack PO 17 gm QAM [facility] Administration Potassium Chloride 40 meq 11/12/24 13:10 Potassium Chloride 20 Meq Er Tablet PO 11/12/24 13:11 ONCE ONE Tramadol HCl 25 mg 11/09/24 01:03 11/10/24 08:13 Tramadol Hcl (*Crx) 25 Mg Tablet PO 25 mg Q4H PRN Administration Pain Rated 4-6 Warfarin Sodium 5 mg 11/10/24 17:00 11/10/24 18:26 Warfarin (*Pbkc) 5 Mg Tablet PO 5 mg DAILY@1700 [facility] Administration Warfarin Sodium 2 mg 11/10/24 17:00 11/10/24 18:26 Warfarin (*Pbkc) 2 Mg Tablet PO 2 mg DAILY@1700 [facility]STER Administration Radiology Results: ITS Impressions Chest CTA 11/09/24 11:12 Impression: No evidence of pulmonary embolus, aortic dissection, or aortic aneurysm. Minimal pericardial effusion. Small to moderate left pleural effusion and small right pleural effusion, with bilateral atelectatic change, left worse than right. Venous Doppler Study 11/09/24 16:04 IMPRESSION: 1. No deep venous thrombosis within the right lower extremity. 2.. Venous thrombosis of the posterior tibial and peroneal veins in the left lower extremity. Pelvis Ultrasound 11/09/24 16:35 IMPRESSION: Heterogeneous endometrial tissue which may indicate endometrial masses ,debris or hematoma. Further evaluation advised. Otherwise, normal pelvic ultrasound. Chest X-Ray 11/11/24 06:07 Impression: Moderate bilateral pleural effusions are significantly increased, with moderate pulmonary edema and bibasilar atelectatic change. Labs Labs: Laboratory Results - last 24 hr 11/10/24 11/10/24 11/10/24 11:36 16:12 20:34 WBC RBC Hgb Hct MCV MCH MCHC RDW Plt Count MPV Immature Gran % (Auto) Neut % (Auto) Lymph % (Auto) [place] % (Auto) Eos % (Auto) Baso % (Auto) Lymph # (Auto) [place] # (Auto) Eos # (Auto) Baso # (Auto) Abs Immat Gran (auto) Absolute Neuts (auto) Absolute Nucleated RBC Nucleated RBC % PT INR Puncture Site ABG pH ABG pCO2 ABG pO2 ABG PO2/FiO2 Ratio ABG HCO3 ABG O2 Saturation ABG O2 Content ABG Base Excess A-a Gradient Oxyhemoglobin Carboxyhemoglobin Methemoglobin Reduced Hemoglobin Total Hemoglobin O2 Delivery Device O2 Liters/Min Vent Rate FiO2 Expiratory Pressure Inspiratory Pressure Sodium Potassium Chloride Carbon Dioxide Anion Gap BUN Creatinine Estim Creat Clear Calc Estimated GFR Glucose POC Capillary Glucose 331 H 292 H 258 H Calcium Magnesium Total Bilirubin AST ALT Alkaline Phosphatase Troponin I NT-Pro-B Natriuret Pep Total Protein Albumin 11/11/24 11/11/24 11/11/24 01:57 02:11 04:31 WBC 8.8 RBC 3.96 L Hgb 12.1 Hct 37.1 MCV 93.7 MCH 30.6 MCHC 32.6 RDW 14.1 Plt Count 225 MPV 12.3 H Immature Gran % (Auto) 0.7 H Neut % (Auto) 80.6 H Lymph % (Auto) 7.3 L [place] % (Auto) 9.8 H Eos % (Auto) 1.1 Baso % (Auto) 0.5 Lymph # (Auto) 0.64 L [place] # (Auto) 0.9 H Eos # (Auto) 0.1 Baso # (Auto) 0.0 Abs Immat Gran (auto) 0.06 H Absolute Neuts (auto) 7.1 H Absolute Nucleated RBC 0.000 Nucleated RBC % 0.0 PT 18.8 H INR 1.5 Puncture Site Left radial ABG pH 7.413 ABG pCO2 43.8 ABG pO2 82.4 ABG PO2/FiO2 Ratio 0.82 ABG HCO3 27.3 H ABG O2 Saturation 96.2 ABG O2 Content 20.9 ABG Base Excess 2.3 A-a Gradient 586.8 Oxyhemoglobin 95.6 Carboxyhemoglobin 0.7 Methemoglobin 0.1 Reduced Hemoglobin 3.6 Total Hemoglobin 15.5 O2 Delivery Device Non-invasive vent O2 Liters/Min Not Reportable Vent Rate 12 FiO2 100 Expiratory Pressure 6 Inspiratory Pressure 12 Sodium 133 L Potassium 3.2 L Chloride 95 L Carbon Dioxide 28 Anion Gap 10 BUN 30 H Creatinine 1.23 H Estim Creat Clear Calc 48 Estimated GFR 43 L Glucose 183 H POC Capillary Glucose Calcium 8.3 L Magnesium 2.4 H Total Bilirubin 0.7 AST 42 H ALT 39 H Alkaline Phosphatase 103 Troponin I 0.019 NT-Pro-B Natriuret Pep 2410 H Total Protein 7.0 Albumin 3.5 11/11/24 07:48 WBC RBC Hgb Hct MCV MCH MCHC RDW Plt Count MPV Immature Gran % (Auto) Neut % (Auto) Lymph % (Auto) [place] % (Auto) Eos % (Auto) Baso % (Auto) Lymph # (Auto) [place] # (Auto) Eos # (Auto) Baso # (Auto) Abs Immat Gran (auto) Absolute Neuts (auto) Absolute Nucleated RBC Nucleated RBC % PT INR Puncture Site ABG pH ABG pCO2 ABG pO2 ABG PO2/FiO2 Ratio ABG HCO3 ABG O2 Saturation ABG O2 Content ABG Base Excess A-a Gradient Oxyhemoglobin Carboxyhemoglobin Methemoglobin Reduced Hemoglobin Total Hemoglobin O2 Delivery Device O2 Liters/Min Vent Rate FiO2 Expiratory Pressure Inspiratory Pressure Sodium Potassium Chloride Carbon Dioxide Anion Gap BUN Creatinine Estim Creat Clear Calc Estimated GFR Glucose POC Capillary Glucose 234 H Calcium Magnesium Total Bilirubin AST ALT Alkaline Phosphatase Troponin I NT-Pro-B Natriuret Pep Total Protein Albumin Quality VTE Prophylaxis VTE prophylaxis: pharmacologic ordered
[2024-11-11] MEDS: FUROSEMIDE INJ 40 MG/4 ML VIAL IV PUSH ×2 (09:54→17:10)
[2024-11-11] MEDS: INSULIN ASPART (*BKC) 100 UNITS/ML SUB-Q ×4 (09:54→20:47)
[2024-11-11 10:00] LABS: Glucose Point of Care 256 mg/dl (65-105)
[2024-11-11 11:28] LABS: Glucose Point of Care 253 mg/dl (65-105)
--- NOTE | 2024-11-11 12:15 | P.CONS_ITS ---
Assessment and Plan Assessment and plan (1) Abnormal finding on ultrasound: Code(s): R93.89 - Abnormal findings on diagnostic imaging of other specified body structures Status: Acute Assessment and Plan: Discussed with her the findings and possible etiologies and need for endometrial sampling which can be done in outpatient setting. MRI ordered, to determine if it would better clarify the nonspecific ultrasound findings, but due to her physical limitations, this may not be able to be done, which the most diagnostic will be the endometrial biopsy. She was told to schedule follow up in the office to perform endometrial biopsy. Briefly discussed the endometrial biopsy procedure. HPI Data of Consult Date/Time: 11/11/24 12:15 Requesting Physician: Talia Cruz MD Primary Care Provider: Júnior Leung, Consult Narrative Reason for consult: Abnormal pelvic ultrasound Narrative: Columba Voss is a 69 year old female admitted for exacerbation of chronic medical conditions. During her workup she had a CT which showed uterine and ovarian enlargement, scattered nonenlarged lymph nodes. Subsequent ultrasound ordered and it showed nonspecific finding of heterogeneous endometrial tissue, no mention of endometrial stripe. Patient denies any bleeding since menopause. She denies pelvic pain. Denies family history of uterine or ovarian cancer. Denies unexplained weight loss. Review of Systems 2 Review of Systems: All systems reviewed & are unremarkable except as noted in HPI and below (per hpi) [facility] Past Medical History Medical History Chronic obstructive pulmonary disease Heart failure with reduced ejection fraction and diastolic dysfunction EF was 40 to 45% on echo in September 2022. Type 2 diabetes mellitus Chronic kidney disease, stage 3 Gout Chronic anticoagulation Paroxysmal atrial fibrillation History of cardioversion and ablation. Hyperlipidemia Hypertension Surgical History Surgical History History of cataract extraction History of cardiac radiofrequency ablation History of total left hip arthroplasty History of cholecystectomy History of surgical removal of lesion Family History Family History Sibling Lung cancer Sibling Diabetes mellitus Hypertension Sibling Acute myocardial infarction Mother [place] disease Sibling Accidental Social History Social History Social History: Surrogate medical decision maker: Lauren Woodsjuan, niece. Code status: Full code. Smoking status: Never smoker Second hand tobacco smoke exposure: Yes Alcohol intake: never Substance use: never Substance use type: does not use Do You Feel Safe in your Home?: Yes Lack of Transportation: YES Lack of Food: Never True Current Housing: I Have Housing Concerned About Future Housing: No Difficulty Paying Gas/Electric Bills: No Difficulty Paying for Meds: No Currently Unemployed: Decline to Answer Education: High School Diploma/GED Difficulty w/ Childcare or Family Care: No Living arrangements: with family Additional living arrangements comments: Daughter is staying with her right now. Occupation/Education: retired Additional occupation/education comments: Worked at a [employer], and at a [employer]. Spiritual care concerns: No Meds Home Medications and Allergies Home Medications ?Medication ?Instructions ?Recorded ?Confirmed ?Type digoxin 125 mcg (0.125 mg) tablet 125 mcg PO DAILY 05/18/24 11/09/24 History albuterol sulfate 90 mcg/actuation 1 inh inhalation Q4H PRN shortness 06/07/24 11/09/24 Rx aerosol inhaler of breath or wheezing #8.5 grams gabapentin 300 mg capsule See Rx Instructions .Route 08/15/24 11/09/24 Rx .COMPLEX #270 caps torsemide 100 mg tablet 100 mg PO QAM #90 tabs 08/25/24 11/09/24 Rx tirzepatide 2.5 mg/0.5 mL 2.5 mg (0.5 mL) subcut WEEKLY #2 mL 08/30/24 11/09/24 Rx subcutaneous pen injector (Lonnie) amlodipine 10 mg tablet 10 mg PO DAILY #90 tabs 09/09/24 11/09/24 Rx budesonide 160 mcg-glycopyr 9 2 inh inhalation QAM AND QPM #10.7 09/09/24 11/09/24 Rx mcg-formot 4.8 mcg/actuation HFA grams inhaler (Breztri Aerosphere) lancets 30 gauge (OneTouch Delica #100 ea 10/20/24 11/09/24 Rx Plus Lancet) allopurinol 100 mg tablet See Rx Instructions .Route 10/26/24 11/09/24 Rx .COMPLEX #180 tabs apixaban 5 mg tablet 5 mg PO BID #90 tabs 11/01/24 11/09/24 Rx blood sugar diagnostic (OneTouch #100 strips 11/07/24 11/09/24 Rx Verio test strips) metoprolol succinate 200 mg 200 mg PO DAILY 11/09/24 11/09/24 History tablet,extended release 24 hr Allergies Allergy/AdvReac Type Severity Reaction Status Date / Time No Known Allergies Allergy Verified 11/08/24 17:03 Vital Signs Vital Signs - 24 hr 11/10/24 12:53 11/10/24 12:53 11/10/24 13:04 Temperature Pulse Rate 92 86 Respiratory Rate 24 H 24 H Blood Pressure Pulse Oximetry 94 Oxygen Delivery High Flow Therapy with Na Oxygen Flow Rate 50 Fraction of Inspired Oxygen 73 11/10/24 14:00 11/10/24 15:46 11/10/24 15:50 Temperature 97.6 F Pulse Rate 86 100 Respiratory Rate 33 H Blood Pressure 127/67 Pulse Oximetry 91 90 Oxygen Delivery High Flow Therapy with Na Oxygen Flow Rate 50 Fraction of Inspired Oxygen 60 11/10/24 15:50 11/10/24 16:00 11/10/24 18:00 Temperature Pulse Rate 86 81 83 Respiratory Rate 24 H Blood Pressure Pulse Oximetry Oxygen Delivery Oxygen Flow Rate Fraction of Inspired Oxygen 11/10/24 20:00 11/10/24 20:00 11/10/24 20:00 Temperature 97.7 F Pulse Rate 96 90 Respiratory Rate 32 H Blood Pressure 131/77 Pulse Oximetry 94 91 Oxygen Delivery High Flow Therapy with Na Oxygen Flow Rate 50 Fraction of Inspired Oxygen 90 11/10/24 20:45 11/10/24 20:47 11/10/24 20:55 Temperature Pulse Rate 86 86 110 H Respiratory Rate 22 H 22 H 22 H Blood Pressure Pulse Oximetry 92 Oxygen Delivery High Flow Therapy with Na Oxygen Flow Rate 50 Fraction of Inspired Oxygen 90 11/10/24 22:00 11/11/24 00:00 11/11/24 00:00 Temperature 97.7 F Pulse Rate 76 85 Respiratory Rate 32 H Blood Pressure 151/94 H Pulse Oximetry 94 90 Oxygen Delivery High Flow Therapy with Na Oxygen Flow Rate 50 Fraction of Inspired Oxygen 90 11/11/24 00:00 11/11/24 00:15 11/11/24 00:40 Temperature Pulse Rate 78 75 74 Respiratory Rate 20 20 Blood Pressure Pulse Oximetry Oxygen Delivery Oxygen Flow Rate Fraction of Inspired Oxygen 04/25/25 01:45 11/11/24 02:00 11/11/24 04:00 Temperature Pulse Rate 81 Respiratory Rate 30 H Blood Pressure Pulse Oximetry 93 96 Oxygen Delivery BiPAP BiPAP Oxygen Flow Rate Fraction of Inspired Oxygen 11/11/24 04:00 11/11/24 04:00 11/11/24 04:31 Temperature 97.7 F Pulse Rate 66 61 88 Respiratory Rate 23 H Blood Pressure 153/67 H Pulse Oximetry 97 Oxygen Delivery Oxygen Flow Rate Fraction of Inspired Oxygen 11/11/24 04:33 11/11/24 04:33 11/11/24 06:00 Temperature Pulse Rate 88 Respiratory Rate 18 Blood Pressure Pulse Oximetry 97 97 Oxygen Delivery BiPAP BiPAP Oxygen Flow Rate 80 Fraction of Inspired Oxygen 11/11/24 07:39 11/11/24 07:39 11/11/24 07:39 Temperature Pulse Rate 86 86 Respiratory Rate 26 H 26 H Blood Pressure Pulse Oximetry 98 98 Oxygen Delivery BiPAP BiPAP Oxygen Flow Rate 80 Fraction of Inspired Oxygen 11/11/24 08:00 11/11/24 08:14 11/11/24 09:20 Temperature 97.5 F L Pulse Rate 93 104 H Respiratory Rate 26 H Blood Pressure 148/75 H Pulse Oximetry 94 92 Oxygen Delivery High Flow Therapy with Na Oxygen Flow Rate 50 Fraction of Inspired Oxygen 52 11/11/24 09:37 11/11/24 09:38 11/11/24 10:00 Temperature Pulse Rate 93 90 102 H Respiratory Rate Blood Pressure Pulse Oximetry Oxygen Delivery Oxygen Flow Rate Fraction of Inspired Oxygen 11/11/24 11:10 11/11/24 11:10 11/11/24 11:18 Temperature Pulse Rate 91 91 84 Respiratory Rate 28 H 28 H 29 H Blood Pressure Pulse Oximetry 95 Oxygen Delivery BiPAP Oxygen Flow Rate Fraction of Inspired Oxygen 11/11/24 11:44 Temperature 97.4 F L Pulse Rate 80 Respiratory Rate 28 H Blood Pressure 131/69 Pulse Oximetry 94 Oxygen Delivery Oxygen Flow Rate Fraction of Inspired Oxygen Exam 2 Const: General: no acute distress Eyes: General: appearance normal, both eyes and all related structures Resp: Effort & Inspection: tachypneic Results Labs 11/11/24 04:31 11/11/24 04:31 Labs: Short CBC 11/11/24 Range/Units 04:31 WBC 8.8 (4.5-10.0) K/mm3 Hgb 12.1 (12.0-15.0) g/dL Hct 37.1 (37.0-47.0) % Plt Count 225 (150-375) k/mm3 BMP 11/11/24 04:31 Sodium 133 L Potassium 3.2 L Chloride 95 L Carbon Dioxide 28 BUN 30 H Creatinine 1.23 H Glucose 183 H Calcium 8.3 L Cardiac Enzymes 11/11/24 Range/Units 02:11 Troponin I 0.019 (0.000-0.034) ng/mL Liver Function 11/11/24 Range/Units 04:31 Total Bilirubin 0.7 (0.2-1.3) mg/dL AST 42 H (14-36) U/L ALT 39 H (6-35) U/L Alkaline Phosphatase 103 (38-126) U/L Albumin 3.5 (3.5-5.1) g/dL
--- NOTE | 2024-11-11 12:19 | P.CONCA_ITS ---
Assessment and Plan Assessment and plan (1) CHF (congestive heart failure): Code(s): I50.9 - Heart failure, unspecified Status: Acute Assessment and Plan: Acute on chronic diastolic heart failure. Her regular pin drafting machine tender is Dr. Mason with [facility]. Restrict fluid to 1.5 l/day. On Lasix 40 mg IV BID. (2) Deep vein thrombosis (DVT) of left lower extremity: Code(s): I82.402 - Acute embolism and thrombosis of unspecified deep veins of left lower extremity Status: Acute Assessment and Plan: On Lovenox. Was on Eliquis that was changed from Warfarin last month. Upon discharge will need to change to DVT treatment dosing of either Eliquis or go with Xarelto. (3) Afib: Qualifiers: Atrial fibrillation type: unspecified chronic Qualified Code(s): I48.20 - Chronic atrial fibrillation, unspecified Code(s): I48.91 - Unspecified atrial fibrillation Status: Chronic Assessment and Plan: Rate is controlled on Metoprolol and Digoxin. Anticoagulate will be covered with DVT treatment. (4) Hypertension: Code(s): I10 - Essential (primary) hypertension Status: Chronic Assessment and Plan: Stable. (5) COPD (chronic obstructive pulmonary disease): Code(s): J44.9 - Chronic obstructive pulmonary disease, unspecified Status: Acute Assessment and Plan: On CPAP and Nebs and antibiotics. History of Present Illness History of Present Illness Consult date/time: 11/11/24 12:19 Reason For Visit: shortness of breath Narrative: 69 yr old woman who is a patient of Dr. Leung and her regular pin drafting machine tender is Dr. Mason with [facility] presents to hospital with sob. She has a history of recurrence of PAF s/p ablation in Jul 2021 with [facility], DM, hypertension, dyslipidemia, COPD (from second hand smoke exposure). Her niece and nephew are at bedside. States she got sob for about a week and came to hospital. She drinks at least 2 liters of fluids a day. Reports recently she has ZARAGOZA walking very short distances. She has occasional palpitations. Admits to snoring, waking up and daytime sleepiness. Denies chest pain, orthopnea, PND, dizziness. Cardiovascular Procedures Echo/MUGA:: 11/09/24 Echo: 60-65%, diastolic dysfunction (E/e' 16), mod LAE, mild DANETTE, trace MR, trace pericardial effusion. 10/10/22 Echo: EF 40-45%, mild LVE, mild LVH, diastolic dysfunction (E/e' 14), RV hypokinetic and TAPSE 1.3 cm, mild LAE, mild (ADAMA 2.0 cm2), mod MAC, mild-mod MR, trace TR. Electrophysiology:: 09/09/22 EKG: Atrial fib at 110 bpm, IVCD, borderline T wave abnormality. 05/07/21 EKG: Atrial fib at 152 bpm, delayed precordial R/S transition, borderline ST-T wave in inferior leads. Stress Tests:: 10/13/22 Lexiscan myoview: Fixed anteroapical defect secondary to scar/infarct. No ischemia. EF 35%, severe anteroapical hypokinesis. 08/07/21 CTA of heart at [place]: Coronary calcifications, stenosis not assessed. Review of Systems 2 Review of Systems: All systems reviewed & are unremarkable except as noted in HPI and below Constitutional: Constitutional: Reports as per HPI, Denies chills and Denies fever(s) Cardiovascular: Cardiovascular: Reports as per HPI, Denies chest pain and Denies irregular heart rhythm Respiratory: Respiratory: Reports as per HPI, Reports dyspnea and Reports wheezing Gastrointestinal: Gastrointestinal: Reports as per HPI and Denies abdominal pain Genitourinary: Genitourinary: Reports as per HPI and Denies dysuria Musculoskeletal: Musculoskeletal: Reports as per HPI Neurologic: Reports as per HPI, Denies dizziness and Denies syncope [facility] Past Medical History Medical History Chronic obstructive pulmonary disease Heart failure with reduced ejection fraction and diastolic dysfunction EF was 40 to 45% on echo in September 2022. Type 2 diabetes mellitus Chronic kidney disease, stage 3 Gout Chronic anticoagulation Paroxysmal atrial fibrillation History of cardioversion and ablation. Hyperlipidemia Hypertension Surgical History Surgical History History of cataract extraction History of cardiac radiofrequency ablation History of total left hip arthroplasty History of cholecystectomy History of surgical removal of lesion Family History Family History Sibling Lung cancer Sibling Diabetes mellitus Hypertension Sibling Acute myocardial infarction Mother [place] disease Sibling Accidental Social History Social History Social History: Surrogate medical decision maker: Lauren Zimmer, niece. Code status: Full code. Smoking status: Never smoker Second hand tobacco smoke exposure: Yes Alcohol intake: never Substance use: never Substance use type: does not use Do You Feel Safe in your Home?: Yes Lack of Transportation: YES Lack of Food: Never True Current Housing: I Have Housing Concerned About Future Housing: No Difficulty Paying Gas/Electric Bills: No Difficulty Paying for Meds: No Currently Unemployed: Decline to Answer Education: High School Diploma/GED Difficulty w/ Childcare or Family Care: No Living arrangements: with family Additional living arrangements comments: Daughter is staying with her right now. Occupation/Education: retired Additional occupation/education comments: Worked at a [employer], and at a [employer]. Spiritual care concerns: No Meds Home Medications and Allergies Home Medications ?Medication ?Instructions ?Recorded ?Confirmed ?Type digoxin 125 mcg (0.125 mg) tablet 125 mcg PO DAILY 05/18/24 11/09/24 History albuterol sulfate 90 mcg/actuation 1 inh inhalation Q4H PRN shortness 06/07/24 11/09/24 Rx aerosol inhaler of breath or wheezing #8.5 grams gabapentin 300 mg capsule See Rx Instructions .Route 08/15/24 11/09/24 Rx .COMPLEX #270 caps torsemide 100 mg tablet 100 mg PO QAM #90 tabs 08/25/24 11/09/24 Rx tirzepatide 2.5 mg/0.5 mL 2.5 mg (0.5 mL) subcut WEEKLY #2 mL 08/30/24 11/09/24 Rx subcutaneous pen injector (Mounjaro) amlodipine 10 mg tablet 10 mg PO DAILY #90 tabs 09/09/24 11/09/24 Rx budesonide 160 mcg-glycopyr 9 2 inh inhalation QAM AND QPM #10.7 09/09/24 11/09/24 Rx mcg-formot 4.8 mcg/actuation HFA grams inhaler (Breztri Aerosphere) lancets 30 gauge (OneTouch Delica #100 ea 10/20/24 11/09/24 Rx Plus Lancet) allopurinol 100 mg tablet See Rx Instructions .Route 10/26/24 11/09/24 Rx .COMPLEX #180 tabs apixaban 5 mg tablet 5 mg PO BID #90 tabs 11/01/24 11/09/24 Rx blood sugar diagnostic (OneTouch #100 strips 11/07/24 11/09/24 Rx Verio test strips) metoprolol succinate 200 mg 200 mg PO DAILY 11/09/24 11/09/24 History tablet,extended release 24 hr Allergies Allergy/AdvReac Type Severity Reaction Status Date / Time No Known Allergies Allergy Verified 11/08/24 17:03 Vital Signs Vital Signs - 24 hr 11/10/24 12:53 11/10/24 12:53 11/10/24 13:04 Temperature Pulse Rate 92 86 Respiratory Rate 24 H 24 H Blood Pressure Pulse Oximetry 94 Oxygen Delivery High Flow Therapy with Na Oxygen Flow Rate 50 Fraction of Inspired Oxygen 73 11/10/24 14:00 11/10/24 15:46 11/10/24 15:50 Temperature 97.6 F Pulse Rate 86 100 Respiratory Rate 33 H Blood Pressure 127/67 Pulse Oximetry 91 90 Oxygen Delivery High Flow Therapy with Na Oxygen Flow Rate 50 Fraction of Inspired Oxygen 60 11/10/24 15:50 11/10/24 16:00 11/10/24 18:00 Temperature Pulse Rate 86 81 83 Respiratory Rate 24 H Blood Pressure Pulse Oximetry Oxygen Delivery Oxygen Flow Rate Fraction of Inspired Oxygen 11/10/24 20:00 11/10/24 20:00 11/10/24 20:00 Temperature 97.7 F Pulse Rate 96 90 Respiratory Rate 32 H Blood Pressure 131/77 Pulse Oximetry 94 91 Oxygen Delivery High Flow Therapy with Na Oxygen Flow Rate 50 Fraction of Inspired Oxygen 90 11/10/24 20:45 11/10/24 20:47 11/10/24 20:55 Temperature Pulse Rate 86 86 110 H Respiratory Rate 22 H 22 H 22 H Blood Pressure Pulse Oximetry 92 Oxygen Delivery High Flow Therapy with Na Oxygen Flow Rate 50 Fraction of Inspired Oxygen 90 11/10/24 22:00 11/11/24 00:00 11/11/24 00:00 Temperature 97.7 F Pulse Rate 76 85 Respiratory Rate 32 H Blood Pressure 151/94 H Pulse Oximetry 94 90 Oxygen Delivery High Flow Therapy with Na Oxygen Flow Rate 50 Fraction of Inspired Oxygen 90 11/11/24 00:00 11/11/24 00:15 11/11/24 00:40 Temperature Pulse Rate 78 75 74 Respiratory Rate 20 20 Blood Pressure Pulse Oximetry Oxygen Delivery Oxygen Flow Rate Fraction of Inspired Oxygen 11/11/24 01:45 11/11/24 02:00 11/11/24 04:00 Temperature Pulse Rate 81 Respiratory Rate 30 H Blood Pressure Pulse Oximetry 93 96 Oxygen Delivery BiPAP BiPAP Oxygen Flow Rate Fraction of Inspired Oxygen 11/11/24 04:00 11/11/24 04:00 11/11/24 04:31 Temperature 97.7 F Pulse Rate 66 61 88 Respiratory Rate 23 H Blood Pressure 153/67 H Pulse Oximetry 97 Oxygen Delivery Oxygen Flow Rate Fraction of Inspired Oxygen 11/11/24 04:33 11/11/24 04:33 11/11/24 06:00 Temperature Pulse Rate 88 Respiratory Rate 18 Blood Pressure Pulse Oximetry 97 97 Oxygen Delivery BiPAP BiPAP Oxygen Flow Rate 80 Fraction of Inspired Oxygen 11/11/24 07:39 11/11/24 07:39 11/11/24 07:39 Temperature Pulse Rate 86 86 Respiratory Rate 26 H 26 H Blood Pressure Pulse Oximetry 98 98 Oxygen Delivery BiPAP BiPAP Oxygen Flow Rate 80 Fraction of Inspired Oxygen 11/11/24 08:00 11/11/24 08:14 11/11/24 09:20 Temperature 97.5 F L Pulse Rate 93 104 H Respiratory Rate 26 H Blood Pressure 148/75 H Pulse Oximetry 94 92 Oxygen Delivery High Flow Therapy with Na Oxygen Flow Rate 50 Fraction of Inspired Oxygen 52 11/11/24 09:37 11/11/24 09:38 11/11/24 10:00 Temperature Pulse Rate 93 90 102 H Respiratory Rate Blood Pressure Pulse Oximetry Oxygen Delivery Oxygen Flow Rate Fraction of Inspired Oxygen 11/11/24 11:10 11/11/24 11:10 11/11/24 11:18 Temperature Pulse Rate 91 91 84 Respiratory Rate 28 H 28 H 29 H Blood Pressure Pulse Oximetry 95 Oxygen Delivery BiPAP Oxygen Flow Rate Fraction of Inspired Oxygen 11/11/24 11:44 Temperature 97.4 F L Pulse Rate 80 Respiratory Rate 28 H Blood Pressure 131/69 Pulse Oximetry 94 Oxygen Delivery Oxygen Flow Rate Fraction of Inspired Oxygen Exam 2 Const: General: cooperative, healthy appearing and comfortable Resp: Auscultation: no crackles, no rales, no rhonchi, no wheezes and diminished lung sounds Cardio: Rate: regular rate Rhythm: abnormal rhythm Heart sounds: no murmurs Peripheral pulses: dorsalis pedis present GI: GI Palp: No abdominal tenderness and Yes Soft to palpation Neuro: General: oriented to person, oriented to place and oriented to time Extrem: Right lower extremity: edema Left lower extremity: edema Other: Mod edema of both legs Results Labs and Meds 11/11/24 04:31 11/11/24 04:31 Lab results: Cardiac Enzymes 11/11/24 11/11/24 Range/Units 02:11 04:31 AST 42 H (14-36) U/L Troponin I 0.019 (0.000-0.034) ng/mL Coagulation 11/11/24 Range/Units 04:31 PT 18.8 H (11.1-14.7) Seconds CBC 11/11/24 Range/Units 04:31 WBC 8.8 (4.5-10.0) K/mm3 RBC 3.96 L (4.2-5.4) M/mm3 Hgb 12.1 (12.0-15.0) g/dL Hct 37.1 (37.0-47.0) % Plt Count 225 (150-375) k/mm3 Lymph # (Auto) 0.64 L (0.9-3.2) K/mm3 [place] # (Auto) 0.9 H (0.1-0.6) K/mm3 Eos # (Auto) 0.1 (0-0.3) K/mm3 Baso # (Auto) 0.0 (0.0-0.1) K/mm3 Comprehensive Metabolic Panel 11/11/24 Range/Units 04:31 Sodium 133 L (137-145) mmol/L Potassium 3.2 L (3.4-5.0) mmol/L Chloride 95 L (98-107) mmol/L Carbon Dioxide 28 (22-30) mmol/L BUN 30 H (7-17) mg/dL Creatinine 1.23 H (0.7-1.0) mg/dL Glucose 183 H (65-110) mg/dL Calcium 8.3 L (8.4-10.2) mg/dL AST 42 H (14-36) U/L ALT 39 H (6-35) U/L Alkaline Phosphatase 103 (38-126) U/L Total Protein 7.0 (6.3-8.2) g/dL Albumin 3.5 (3.5-5.1) g/dL Intake and Output 11/10/24 11/11/24 11/11/24 23:59 07:59 15:59 Intake Total 120 550 Output Total 400 700 800 Balance -280 -150 -800 Intake: Oral 120 550 Output: Urine 400 700 800 Other: # Unmeasured Voids 1 1 Number of Bowel Movements Today 1 Patient Weight 11/11/24 23:59 Weight 125.9 kg
[2024-11-11 15:40] LABS: Anion Gap 10 mmol/L (4-12); Blood Urea Nitrogen 27 mg/dL (7-17); Calcium 8.3 mg/dL (8.4-10.2); Carbon Dioxide 28 mmol/L (22-30); Chloride 95 mmol/L (98-107); Estimated CRCL calculation 57 ml/min; Estimated Glomerular Filt Rate 53; Glucose 261 mg/dL (65-110); Potassium 3.5 mmol/L (3.4-5.0); Sodium 133 mmol/L (137-145)
[2024-11-11 16:44] LABS: Glucose Point of Care 260 mg/dl (65-105)
[2024-11-11] MEDS: WARFARIN (*PBKC) 2 MG TABLET PO (17:09)
[2024-11-11] MEDS: WARFARIN (*PBKC) 5 MG TABLET PO (17:10)
[2024-11-11 20:55] LABS: Glucose Point of Care 229 mg/dl (65-105)
[2024-11-12] VITALS (25 sets, daily range): BP systolic 134–152; BP diastolic 58–85; PULSE 78–102; RESP 18–24; TEMP 36.6–36.9; O2SAT 92–99
[2024-11-12 04:26] LABS: Basophils Percent Auto 0.5 % (0.2-1.2); Eosinophils Absolute Auto 0.1 K/mm3 (0-0.3); Eosinophils Percent Auto 1.2 % (0-4.4); Hematocrit 35.5 % (37.0-47.0); Hemoglobin 12.2 g/dL (12.0-15.0); Immature Granulocyte Absolute 0.08 K/mm3 (0.00-0.031); Immature Granulocyte Percent A 1.1 % (0-0.5); Lymphocytes Absolute Auto 0.65 K/mm3 (0.9-3.2); Lymphocytes Percent Auto 8.8 % (18.3-44.2); Mean Corpuscular HGB Conc 34.4 g/dl (32-36); Mean Corpuscular Hemoglobin 30.6 pg (26-34); Mean Platelet Volume 10.8 fl (7.4-10.4); Monocytes Absolute Auto 0.7 K/mm3 (0.1-0.6); Monocytes Percent Auto 9.7 % (2.6-8.5); Neutrophils Absolute Auto 5.8 K/mm3 (1.3-6.7); Neutrophils Percent Auto 78.7 % (45.5-73.1); Platelet Count Result 255 k/mm3 (150-375); Red Blood Count 3.99 M/mm3 (4.2-5.4); Red Cell Distribution Width 13.7 % (11.5-14.5); White Blood Count 7.4 K/mm3 (4.5-10.0)
[2024-11-12 04:38] LABS: Alanine Aminotransferase 63 U/L (6-35); Albumin Level 3.2 g/dL (3.5-5.1); Alkaline Phosphatase 126 U/L (38-126); Anion Gap 10 mmol/L (4-12); Aspartate Amino Transferase 72 U/L (14-36); Bilirubin,Total 0.7 mg/dL (0.2-1.3); Blood Urea Nitrogen 24 mg/dL (7-17); Calcium 8.1 mg/dL (8.4-10.2); Carbon Dioxide 28 mmol/L (22-30); Chloride 97 mmol/L (98-107); Estimated CRCL calculation 59 ml/min; Estimated Glomerular Filt Rate 55; Glucose 212 mg/dL (65-110); Magnesium 2.3 mg/dL (1.6-2.3); Potassium 3.3 mmol/L (3.4-5.0); Sodium 135 mmol/L (137-145)
[2024-11-12] MEDS: IPRATROPIUM BR 0.02% INH SOLN 0.5 MG/2.5 ML VIAL INHALATION ×2 (04:42→08:07)
[2024-11-12] MEDS: cefTRIAXone 2 GM/NS 100 ML 2 GM/100 ML BAG IVPB (04:43)
[2024-11-12] MEDS: AZITHROMYCIN 500 MG/NS 250 ML 500 MG/250 ML BAG 250 MG IVPB (04:43)
[2024-11-12 04:51] LABS: INR 1.4; Prothrombin Time 17.9 Seconds (11.1-14.7)
[2024-11-12] MEDS: ENOXAPARIN 120 MG/0.8 ML SYRINGE SUB-Q ×2 (05:51→17:41)
--- NOTE | 2024-11-12 08:12 | PM.PNCARD ---
Progress Note: A&P Assessment and Plan (1) CHF (congestive heart failure): Code(s): I50.9 - Heart failure, unspecified Status: Acute Assessment and Plan: Acute on chronic diastolic heart failure. 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 Mason with [facility]. Restrict fluid to 1.5 l/day. On Lasix 40 mg IV BID. Start Spironolactone 25 mg daily. (2) Deep vein thrombosis (DVT) of left lower extremity: Code(s): I82.402 - Acute embolism and thrombosis of unspecified deep veins of left lower extremity Status: Acute Assessment and Plan: On Lovenox. Was on Warfarin until a month ago it was changed to Eliquis. She is being restarted on Warfarin. (3) Afib: Qualifiers: Atrial fibrillation type: unspecified chronic Qualified Code(s): I48.20 - Chronic atrial fibrillation, unspecified Code(s): I48.91 - Unspecified atrial fibrillation Status: Chronic Assessment and Plan: Rate is controlled on Metoprolol and Digoxin. Anticoagulate will be covered with DVT treatment. (4) Hypertension: Code(s): I10 - Essential (primary) hypertension Status: Chronic Assessment and Plan: Stable. (5) COPD (chronic obstructive pulmonary disease): Code(s): J44.9 - Chronic obstructive pulmonary disease, unspecified Status: Acute Assessment and Plan: On CPAP and Nebs and antibiotics. Subjective Date/time seen: 11/12/24 08:12 Interval history: Reports sob but improving. No chest pains. Exam Const: General: cooperative, healthy appearing and comfortable Orientation/consciousness: oriented to person, oriented to place and oriented to time Resp: Auscultation: no crackles, no rales, no rhonchi, no wheezes and diminished lung sounds Cardio: Rate: regular rate Rhythm: abnormal rhythm Heart sounds: no murmurs Peripheral pulses: dorsalis pedis present Neuro: General: oriented to person, oriented to place and oriented to time Extrem: Right lower extremity: edema Left lower extremity: edema Other: Mod edema of both legs Objective Data Vital Signs Vital Signs: Vital Signs - 24 hr 11/11/24 08:14 11/11/24 09:20 11/11/24 09:37 Temperature 97.5 F L Pulse Rate 104 H 93 Respiratory Rate 26 H Blood Pressure 148/75 H Pulse Oximetry 94 92 Oxygen Delivery High Flow Therapy with Na Oxygen Flow Rate 50 Fraction of Inspired Oxygen 52 11/11/24 09:38 11/11/24 10:00 11/11/24 11:10 Temperature Pulse Rate 90 102 H 91 Respiratory Rate 28 H Blood Pressure Pulse Oximetry 95 Oxygen Delivery BiPAP Oxygen Flow Rate Fraction of Inspired Oxygen 11/11/24 11:10 11/11/24 11:18 11/11/24 11:44 Temperature 97.4 F L Pulse Rate 91 84 80 Respiratory Rate 28 H 29 H 28 H Blood Pressure 131/69 Pulse Oximetry 94 Oxygen Delivery Oxygen Flow Rate Fraction of Inspired Oxygen 11/11/24 12:00 11/11/24 12:00 11/11/24 14:00 Temperature Pulse Rate 102 H 88 Respiratory Rate Blood Pressure Pulse Oximetry Oxygen Delivery BiPAP Oxygen Flow Rate Fraction of Inspired Oxygen 40 11/11/24 15:38 11/11/24 15:38 11/11/24 15:48 Temperature Pulse Rate 87 78 Respiratory Rate 22 H 22 H Blood Pressure Pulse Oximetry 94 Oxygen Delivery High Flow Therapy with Na Oxygen Flow Rate 50 Fraction of Inspired Oxygen 50 11/11/24 16:00 11/11/24 16:00 11/11/24 16:00 Temperature 98.2 F Pulse Rate 91 95 Respiratory Rate 24 H Blood Pressure 129/96 H Pulse Oximetry 91 Oxygen Delivery BiPAP Oxygen Flow Rate Fraction of Inspired Oxygen 40 11/11/24 16:11 11/11/24 18:00 11/11/24 20:00 Temperature 98.1 F Pulse Rate 86 114 H Respiratory Rate 24 H Blood Pressure 146/86 H Pulse Oximetry 91 96 Oxygen Delivery High Flow Therapy with Na Oxygen Flow Rate 40 Fraction of Inspired Oxygen 40 11/11/24 20:00 11/11/24 20:00 11/11/24 20:11 Temperature Pulse Rate 92 100 99 Respiratory Rate 20 20 Blood Pressure Pulse Oximetry 95 Oxygen Delivery High Flow Therapy with Na Oxygen Flow Rate 40 Fraction of Inspired Oxygen 40 11/11/24 20:18 11/11/24 20:21 11/11/24 22:00 Temperature Pulse Rate 91 90 Respiratory Rate 20 Blood Pressure Pulse Oximetry 95 Oxygen Delivery High Flow Therapy with Na Oxygen Flow Rate 40 Fraction of Inspired Oxygen 40 11/11/24 23:32 11/11/24 23:40 11/12/24 00:00 Temperature 97.8 F Pulse Rate 79 89 87 Respiratory Rate 20 20 24 H Blood Pressure 140/85 Pulse Oximetry 92 Oxygen Delivery Oxygen Flow Rate Fraction of Inspired Oxygen 11/12/24 00:00 11/12/24 00:00 11/12/24 02:00 Temperature Pulse Rate 89 89 90 Respiratory Rate 24 H Blood Pressure Pulse Oximetry 92 Oxygen Delivery High Flow Therapy with Na Oxygen Flow Rate 40 Fraction of Inspired Oxygen 40 11/12/24 04:00 11/12/24 04:00 11/12/24 04:00 Temperature 97.9 F Pulse Rate 92 92 94 Respiratory Rate 24 H 20 Blood Pressure 152/73 H Pulse Oximetry 93 93 Oxygen Delivery High Flow Therapy with Na Oxygen Flow Rate 40 Fraction of Inspired Oxygen 47 11/12/24 04:46 11/12/24 04:57 11/12/24 05:14 Temperature Pulse Rate 85 92 82 Respiratory Rate 20 20 Blood Pressure Pulse Oximetry Oxygen Delivery Oxygen Flow Rate Fraction of Inspired Oxygen 11/12/24 08:08 11/12/24 08:08 Temperature Pulse Rate 97 Respiratory Rate 20 Blood Pressure Pulse Oximetry 94 Oxygen Delivery High Flow Therapy with Na Oxygen Flow Rate 40 Fraction of Inspired Oxygen 47 Intake/Output Intake/Output: Intake & Output 11/09/24 11/10/24 11/11/24 11/12/24 23:59 23:59 23:59 23:59 Intake Total 073 910 1050 900 Output Total 961 833 1054 Balance -160 210 780 900 Meds/Results Medications: Active Medications Generic Name Dose Route Start Last Admin Trade Name Freq PRN Reason Stop Dose Admin Acetaminophen 650 mg 11/09/24 01:03 Acetaminophen 325 Mg Tablet PO Q4H PRN Mild Pain (1-3) or Fever Amlodipine Besylate 10 mg 11/10/24 09:00 11/11/24 09:38 Amlodipine Besylate 10 Mg Tablet PO 10 mg DAILY MASTER Administration Dextrose 12.5 gm 11/09/24 01:01 Dextrose 50% 25 Gm/50 Ml Syringe IV PUSH PRN PRN Hypoglycemia Protocol Diclofenac Sodium 1 applic 11/09/24 17:00 11/11/24 17:09 Diclofenac Sodium 1% 100 Gm Gel (*Bkc) TOPICAL 1 applic TID MASTER Administration Digoxin 125 mcg 11/09/24 09:00 11/11/24 09:37 Digoxin Tab 125 Mcg Tablet PO 125 mcg DAILY MASTER Administration Docusate Sodium 100 mg 11/10/24 09:55 Docusate Sodium 100 Mg Capsule PO Q12H PRN Constipation Enoxaparin Sodium 120 mg 11/09/24 17:00 11/12/24 05:51 Enoxaparin 120 Mg/0.8 Ml Syringe SUB-Q 120 mg Q12H MASTER Administration Furosemide 40 mg 11/09/24 09:00 11/11/24 17:10 Furosemide Inj 40 Mg/4 Ml Vial IV PUSH 40 mg BID MASTER Administration Gabapentin 300 mg 11/09/24 09:00 11/11/24 17:09 Gabapentin 300 Mg Capsule BY MOUTH 300 mg TID MASTER Administration Glucose 15 gm 11/09/24 01:01 Glucose Oral Gel 15 Gm Of Glucse In 37.5 Gm Tube PO PRN PRN Hypoglycemia Protocol Guaifenesin 1,200 mg 11/09/24 21:00 11/11/24 20:46 Guaifenesin 12 Hr 600 Mg Tabcr PO 11/16/24 20:59 1,200 mg Q12HR MASTER Administration Dextrose 1,000 mls @ 100 mls/hr 11/09/24 01:01 Dextrose 5% 1,000 Ml IVPB PRN PRN Hypoglycemia Protocol Ceftriaxone Sodium 2 gm in 100 mls @ 200 mls/hr 11/09/24 04:00 11/12/24 05:15 Rocephin 2 Gm/Ns 100 Ml IVPB Infused Q24H MASTER Infusion Azithromycin 500 mg in 250 mls @ 250 mls/hr 11/09/24 05:00 11/12/24 05:45 Zithromax IVPB Infused Q24H [facility] Infusion Insulin Aspart 2 - 5 units 11/09/24 08:00 11/11/24 17:10 Insulin Aspart (*Bkc) 100 Units/Ml SUB-Q 3 units TIDWM MASTER Administration Protocol Insulin Aspart 1 - 2 units 11/09/24 21:00 11/11/24 20:47 Insulin Aspart (*Bkc) 100 Units/Ml SUB-Q 1 units HS MASTER Administration Protocol Ipratropium Onley 0.5 mg 11/09/24 01:00 11/12/24 08:07 Ipratropium Br 0.02% Inh Soln 0.5 Mg/2.5 Ml Vial INHALATION 0.5 mg Q4HRT MASTER Administration Metoprolol Succinate 200 mg 11/09/24 09:00 11/11/24 09:38 Metoprolol Succinate Ext Rel 100 Mg Tabcr PO 200 mg DAILY MASTER Administration Morphine Sulfate 2 mg 11/09/24 01:03 11/10/24 03:37 Morphine Sulfate (*Crx) 2 Mg/Ml Inj IV PUSH 2 mg Q4H PRN Administration Pain Rated 7-10 Polyethylene Glycol 17 gm 11/10/24 09:55 11/11/24 09:38 Polyethylene Glycol 3350 17 Gm Powd.Pack PO 17 gm QAM [facility] Administration Potassium Chloride 40 meq 11/12/24 08:08 Potassium Chloride 20 Meq Er Tablet PO 11/12/24 08:09 ONCE ONE Spironolactone 25 mg 11/12/24 09:00 Spironolactone 25 Mg Tablet PO QAM [facility] Tramadol HCl 25 mg 11/09/24 01:03 11/10/24 08:13 Tramadol Hcl (*Crx) 25 Mg Tablet PO 25 mg Q4H PRN Administration Pain Rated 4-6 Warfarin Sodium 5 mg 11/10/24 17:00 11/11/24 17:10 Warfarin (*Pbkc) 5 Mg Tablet PO 5 mg DAILY@1700 MASTER Administration Warfarin Sodium 2 mg 11/10/24 17:00 11/11/24 17:09 Warfarin (*Pbkc) 2 Mg Tablet PO 2 mg DAILY@1700 [facility] Administration Radiology Results: ITS Impressions Chest CTA 11/09/24 11:12 Impression: No evidence of pulmonary embolus, aortic dissection, or aortic aneurysm. Minimal pericardial effusion. Small to moderate left pleural effusion and small right pleural effusion, with bilateral atelectatic change, left worse than right. Venous Doppler Study 11/09/24 16:04 IMPRESSION: 1. No deep venous thrombosis within the right lower extremity. 2.. Venous thrombosis of the posterior tibial and peroneal veins in the left lower extremity. Pelvis Ultrasound 11/09/24 16:35 IMPRESSION: Heterogeneous endometrial tissue which may indicate endometrial masses ,debris or hematoma. Further evaluation advised. Otherwise, normal pelvic ultrasound. Chest X-Ray 11/11/24 06:07 Impression: Moderate bilateral pleural effusions are significantly increased, with moderate pulmonary edema and bibasilar atelectatic change. Labs Labs: Laboratory Results - last 24 hr 11/11/24 11/11/24 11/11/24 04:31 09:53 11:24 WBC 8.8 RBC 3.96 L Hgb 12.1 Hct 37.1 MCV 93.7 MCH 30.6 MCHC 32.6 RDW 14.1 Plt Count 225 MPV 12.3 H Immature Gran % (Auto) 0.7 H Neut % (Auto) 80.6 H Lymph % (Auto) 7.3 L Owen % (Auto) 9.8 H Eos % (Auto) 1.1 Baso % (Auto) 0.5 Lymph # (Auto) 0.64 L Owen # (Auto) 0.9 H Eos # (Auto) 0.1 Baso # (Auto) 0.0 Abs Immat Gran (auto) 0.06 H Absolute Neuts (auto) 7.1 H Absolute Nucleated RBC 0.000 Nucleated RBC % 0.0 PT 18.8 H INR 1.5 Sodium 133 L Potassium 3.2 L Chloride 95 L Carbon Dioxide 28 Anion Gap 10 BUN 30 H Creatinine 1.23 H Estim Creat Clear Calc 48 Estimated GFR 43 L Glucose 183 H POC Capillary Glucose 256 H 253 H Calcium 8.3 L Magnesium 2.4 H Total Bilirubin 0.7 AST 42 H ALT 39 H Alkaline Phosphatase 103 Total Protein 7.0 Albumin 3.5 11/11/24 11/11/24 11/11/24 15:15 16:42 20:45 WBC RBC Hgb Hct MCV MCH MCHC RDW Plt Count MPV Immature Gran % (Auto) Neut % (Auto) Lymph % (Auto) Owen % (Auto) Eos % (Auto) Baso % (Auto) Lymph # (Auto) Owen # (Auto) Eos # (Auto) Baso # (Auto) Abs Immat Gran (auto) Absolute Neuts (auto) Absolute Nucleated RBC Nucleated RBC % PT INR Sodium 133 L Potassium 3.5 Chloride 95 L Carbon Dioxide 28 Anion Gap 10 BUN 27 H Creatinine 1.03 H Estim Creat Clear Calc 57 Estimated GFR 53 L Glucose 261 H POC Capillary Glucose 260 H 229 H Calcium 8.3 L Magnesium Total Bilirubin AST ALT Alkaline Phosphatase Total Protein Albumin 11/12/24 04:13 WBC 7.4 RBC 3.99 L Hgb 12.2 Hct 35.5 L MCV 89.0 D MCH 30.6 MCHC 34.4 RDW 13.7 Plt Count 255 MPV 10.8 H Immature Gran % (Auto) 1.1 H Neut % (Auto) 78.7 H Lymph % (Auto) 8.8 L Owen % (Auto) 9.7 H Eos % (Auto) 1.2 Baso % (Auto) 0.5 Lymph # (Auto) 0.65 L Owen # (Auto) 0.7 H Eos # (Auto) 0.1 Baso # (Auto) 0.0 Abs Immat Gran (auto) 0.08 H Absolute Neuts (auto) 5.8 Absolute Nucleated RBC 0.000 Nucleated RBC % 0.0 PT 17.9 H INR 1.4 Sodium 135 L Potassium 3.3 L Chloride 97 L Carbon Dioxide 28 Anion Gap 10 BUN 24 H Creatinine 0.99 Estim Creat Clear Calc 59 Estimated GFR 55 L Glucose 212 H POC Capillary Glucose Calcium 8.1 L Magnesium 2.3 Total Bilirubin 0.7 AST 72 H ALT 63 H Alkaline Phosphatase 126 Total Protein 7.0 Albumin 3.2 L
[2024-11-12 08:29] LABS: Glucose Point of Care 226 mg/dl (65-105)
[2024-11-12] MEDS: INSULIN ASPART (*BKC) 100 UNITS/ML SUB-Q ×4 (09:30→20:46)
[2024-11-12] MEDS: DICLOFENAC SODIUM 1% 100 GM GEL (*BKC) 1 APPLIC TOPICAL ×3 (09:30→17:41)
[2024-11-12] MEDS: DOCUSATE SODIUM 100 MG CAPSULE PO (09:34)
[2024-11-12] MEDS: DIGOXIN TAB 125 MCG TABLET PO (09:34)
[2024-11-12] MEDS: METOPROLOL SUCCINATE EXT REL 100 MG TABCR 200 MG PO (09:35)
[2024-11-12] MEDS: guaiFENesin 12 HR 600 MG TABCR 1200 MG PO ×2 (09:35→20:46)
[2024-11-12] MEDS: amLODIPine BESYLATE 10 MG TABLET PO (09:35)
[2024-11-12] MEDS: FUROSEMIDE INJ 40 MG/4 ML VIAL IV PUSH ×2 (09:36→17:35)
[2024-11-12] MEDS: SPIRONOLACTONE 25 MG TABLET PO (09:36)
[2024-11-12] MEDS: GABAPENTIN 300 MG CAPSULE BY MOUTH ×3 (09:36→17:39)
--- NOTE | 2024-11-12 10:09 | P.PNIM_ITS ---
Progress Note: A&P Assessment and Plan (1) Heart failure with reduced ejection fraction: Code(s): I50.20 - Unspecified systolic (congestive) heart failure Status: Acute Assessment and Plan: * BNP 2285>1870>2410. * Patient had worsening shortness of breath overnight. Patient immediately placed on BiPAP. Improved symptomatology. She has significant wet crackles diffusely. No wheezing, no stridor. Stat chest x-ray demonstrates severe pulmonary edema. Lower extremities still with 2+ pitting edema bilaterally below the knees. Daily weights and urine output unclear per the nursing team as she has been going in her depends. ABG pCO2 43.8, pH 7.413. Given Lasix 80 mg IV x1. * Echocardiogram: Summary 1. Complete two-dimensional, color flow and Doppler transthoracic echocardiogram is performed. 2. Left ventricular chamber dimension is normal. 3. Left ventricular systolic function is normal, estimated at 60-65%. 4. The left ventricular diastolic function is abnormal. 5. E/e' 16 is elevated. 6. Atrial fibrillation. 7. Left atrial chamber dimension is moderately enlarged. 8. Right atrial chamber dimension is mildly enlarged. 9. There is mild aortic valve sclerosis. 10. There is trace mitral valve regurgitation. 11. No pulmonary hypertension, estimated pulmonary arterial systolic pressure is 30 mmHg. 12. There is trivial pericardial effusion. * Furosemide 40 mg ivp BID. * Metolazone 2.5 mg PO starting at 8:30 am tomorrow. * Spironolactone 25 mg PO qam added. * Daily weights. * Strict I&O's. * Fluid restriction 1500 ml. * Cardiology consult, appreciate recommendations. (2) Paroxysmal atrial fibrillation: Code(s): I48.0 - Paroxysmal atrial fibrillation Status: Chronic Assessment and Plan: * Patient was taking Eliquis 5 mg PO BID for one month, stopped on 11/09 and started back on Coumadin. LE dopplers positive for a DVT LLE. Switched on 11/09 to Enoxaprin 120 mg subq q 12 and increase Coumadin 7 mg PO daily. * Metoprolol Succinate 200 mg PO daily. (3) COPD (chronic obstructive pulmonary disease): Code(s): J44.9 - Chronic obstructive pulmonary disease, unspecified Status: Acute Assessment and Plan: * Azithromycin 500 mg IVPB q 24. * Ceftriaxone 2 gram IVPB q 24. * Guaifenesin 1,200 mg PO BID. * Incentive Spirometer. * Ipratropium 0.5 mg Neb q 4. * WBC improving from 15.7>14.1>13.4>8.8>7.4. * ABG: pH 7.438, pC02 36.1, p02 59.9, 02 saturation 92.0. * Pulmonology consult, appreciate recommendations. (4) ZARAGOZA (dyspnea on exertion): Code(s): R06.09 - Other forms of dyspnea Status: Acute Assessment and Plan: * D dimer 1.70. Chest CTA negative. * LE dopplers:IMPRESSION: 1. No deep venous thrombosis within the right lower extremity. 2.. Venous thrombosis of the posterior tibial and peroneal veins in the left lower extremity. * Pulmonology consult, appreciate recommendations. * Better. She was on higher AirVO, Fi02 47% and 40 L/minute with Sa02 92%. (5) Deep vein thrombosis (DVT) of left lower extremity: Code(s): I82.402 - Acute embolism and thrombosis of unspecified deep veins of left lower extremity Status: Acute Assessment and Plan: * LE doppler: IMPRESSION: 1. No deep venous thrombosis within the right lower extremity. 2.. Venous thrombosis of the posterior tibial and peroneal veins in the left lower extremity. * Patient reported that she was previously on Coumadin. Patient switched to Eliquis a month ago. Patient reports compliance with Eliquis. * Stopped Eliquis on 11/09 and restarted Warfarin with Lovenox bridge. * Lovenox 120 mg subq q12. INR 1.5. Warfarin 7 mg PO daily. * Monitor PT/INR daily. (6) Abdominal pain: Code(s): R10.9 - Unspecified abdominal pain Status: Acute Assessment and Plan: * Chest Abdomen/pelvis showed: IMPRESSION: Small left-sided pleural effusion with adjacent compressive atelectasis. Small pericardial effusion. Global enlargement of the bilateral ovaries and uterus, abnormal for a patient of this age. Fatty infiltration of an enlarged liver. * Abdominal US: IMPRESSION: Heterogeneous endometrial tissue which may indicate endometrial masses ,debris or hematoma. Further evaluation advised. Otherwise, normal pelvic ultrasound. * RADIOLOGY DIRECTOR consult, appreciate recommendations. * MR pelvis with and without contrast ordered for further evaluation. (7) DM2 (diabetes mellitus, type 2): Qualifiers: Diabetes mellitus complication status: with circulatory complication Diabetes mellitus complication detail: with other circulatory complications Code(s): E11.9 - Type 2 diabetes mellitus without complications Status: Chronic Assessment and Plan: * Accuchecks, SSI, and hypoglycemic protocol. * HgbA1C 9.1% on 08/30/24. (8) Hypokalemia: Code(s): E87.6 - Hypokalemia Status: Acute Assessment and Plan: * Potassium 3.3. * Patient given Potassium Chloride 40 meq q4 x 2 doses. * Trend labs. Plan This is a 69-year-old female with a history of morbid obesity with BMI 48, heart failure with reduced ejection fraction and combined diastolic dysfunction, COPD, prior tobacco dependence, [id number] diabetes mellitus, CKD stage 3, gout, paroxysmal AFib on Eliquis, hypertension, hyperlipidemia she presented to [facility] on 11/08/2024 with complaint of neck pain which had been going on for about 3 days. She denied any prior trauma or surgery. However that pain resolved and she developed left upper quadrant pain. She also reported shortness of breath to the ER physician however upon arrival to [place] she denied it albeit was in clear respiratory distress. She also admits to nausea but no vomiting. Her last bowel movement was about 2 days [employer] and she usually has bowel movements every 2-3 days, that is normal for her. She otherwise has not had any increase distension of her abdomen. She does not know if she has gained weight, she has swelling on her legs per reports that her usual. Evaluation at [place] [facility] revealed atrial fibrillation rate controlled, tachypnea, blood pressure 119/75, saturating 93% on room air. WBC count 15.7, sodium 133, potassium 3.3, chloride 95, BUN 19, serum creatinine 1.50, glucose 428 than 339, lactic acid 2.7 then 3.1. She received a diuretic but did not urinate in response. Troponin 76.6>80.5>0.026. High limit of normal is 60.4. CRP 23, BNP 2285, EKG without any acute ischemia. A subsequent CT chest abdomen pelvis with contrast revealed a small left-sided pleural effusion with adjacent compressive atelectasis, small pericardial effusion, lobe enlargement of bilateral ovaries and uterus, fatty infiltration of an enlarged liver. She was subsequently transferred to [place] for further evaluation and treatment. Subjective Date/time seen: 11/12/24 10:09 Interval history: Patient sitting up on the side of the bed with niece at bedside. Patient denies chest pain, palpitations, headache, dizziness, nausea, or vomiting. Patient rep orts that she does not sleep well. Review of Systems Review of Systems: All systems reviewed & are unremarkable except as noted in HPI and below Exam Const: General: comfortable and no acute distress Resp: Effort & Inspection: normal respiratory effort Auscultation: diminished lung sounds Cardio: Rhythm: abnormal rhythm irregularly irregular (Afib 90) GI: GI Palp: Yes Soft to palpation Auscultation: normal bowel sounds Neuro: Speech: normal speech Extrem: General: pedal edema bilaterally 2+ Psych: Mental Status: mental status grossly normal Affect: normal affect Objective Data Vital Signs Vital Signs: Vital Signs - 24 hr 11/11/24 11:10 11/11/24 11:10 11/11/24 11:18 Temperature Pulse Rate 91 91 84 Respiratory Rate 28 H 28 H 29 H Blood Pressure Pulse Oximetry 95 Oxygen Delivery BiPAP Oxygen Flow Rate Fraction of Inspired Oxygen 11/11/24 11:44 11/11/24 12:00 11/11/24 12:00 Temperature 97.4 F L Pulse Rate 80 102 H Respiratory Rate 28 H Blood Pressure 131/69 Pulse Oximetry 94 Oxygen Delivery BiPAP Oxygen Flow Rate Fraction of Inspired Oxygen 40 11/11/24 14:00 11/11/24 15:38 11/11/24 15:38 Temperature Pulse Rate 88 87 Respiratory Rate 22 H Blood Pressure Pulse Oximetry 94 Oxygen Delivery High Flow Therapy with Na Oxygen Flow Rate 50 Fraction of Inspired Oxygen 50 11/11/24 15:48 11/11/24 16:00 11/11/24 16:00 Temperature 98.2 F Pulse Rate 78 91 95 Respiratory Rate 22 H 24 H Blood Pressure 129/96 H Pulse Oximetry 91 Oxygen Delivery Oxygen Flow Rate Fraction of Inspired Oxygen 11/11/24 16:00 11/11/24 16:11 11/11/24 18:00 Temperature Pulse Rate 86 Respiratory Rate Blood Pressure Pulse Oximetry 91 Oxygen Delivery BiPAP High Flow Therapy with Na Oxygen Flow Rate 40 Fraction of Inspired Oxygen 40 40 11/11/24 20:00 11/11/24 20:00 11/11/24 20:00 Temperature 98.1 F Pulse Rate 114 H 92 100 Respiratory Rate 24 H 20 Blood Pressure 146/86 H Pulse Oximetry 96 95 Oxygen Delivery High Flow Therapy with Na Oxygen Flow Rate 40 Fraction of Inspired Oxygen 40 11/11/24 20:11 11/11/24 20:18 11/11/24 20:21 Temperature Pulse Rate 99 91 Respiratory Rate 20 20 Blood Pressure Pulse Oximetry 95 Oxygen Delivery High Flow Therapy with Na Oxygen Flow Rate 40 Fraction of Inspired Oxygen 40 11/11/24 22:00 11/11/24 23:32 11/11/24 23:40 Temperature Pulse Rate 90 79 89 Respiratory Rate 20 20 Blood Pressure Pulse Oximetry Oxygen Delivery Oxygen Flow Rate Fraction of Inspired Oxygen 11/12/24 00:00 11/12/24 00:00 11/12/24 00:00 Temperature 97.8 F Pulse Rate 87 89 89 Respiratory Rate 24 H 24 H Blood Pressure 140/85 Pulse Oximetry 92 92 Oxygen Delivery High Flow Therapy with Na Oxygen Flow Rate 40 Fraction of Inspired Oxygen 40 11/12/24 02:00 11/12/24 04:00 11/12/24 04:00 Temperature 97.9 F Pulse Rate 90 92 92 Respiratory Rate 24 H 20 Blood Pressure 152/73 H Pulse Oximetry 93 93 Oxygen Delivery High Flow Therapy with Na Oxygen Flow Rate 40 Fraction of Inspired Oxygen 47 11/12/24 04:00 11/12/24 04:46 11/12/24 04:57 Temperature Pulse Rate 94 85 92 Respiratory Rate 20 20 Blood Pressure Pulse Oximetry Oxygen Delivery Oxygen Flow Rate Fraction of Inspired Oxygen 11/12/24 05:14 11/12/24 08:00 11/12/24 08:08 Temperature 98.5 F Pulse Rate 82 88 Respiratory Rate 20 Blood Pressure 147/74 H Pulse Oximetry 95 94 Oxygen Delivery High Flow Therapy with Na Oxygen Flow Rate 40 Fraction of Inspired Oxygen 47 11/12/24 08:08 11/12/24 08:17 11/12/24 09:34 Temperature Pulse Rate 97 102 H 92 Respiratory Rate 20 20 Blood Pressure Pulse Oximetry Oxygen Delivery Oxygen Flow Rate Fraction of Inspired Oxygen 11/12/24 09:35 Temperature Pulse Rate 92 Respiratory Rate Blood Pressure Pulse Oximetry Oxygen Delivery Oxygen Flow Rate Fraction of Inspired Oxygen Intake/Output Intake/Output: Intake & Output 11/09/24 11/10/24 11/11/24 11/12/24 23:59 23:59 23:59 23:59 Intake Total 324 751 6327 1140 Output Total 948 203 6594 Balance -160 383 803 8157 Meds/Results Medications: Active Medications Generic Name Dose Route Start Last Admin Trade Name Freq PRN Reason Stop Dose Admin Acetaminophen 650 mg 11/09/24 01:03 Acetaminophen 325 Mg Tablet PO Q4H PRN Mild Pain (1-3) or Fever Amlodipine Besylate 10 mg 11/10/24 09:00 11/12/24 09:35 Amlodipine Besylate 10 Mg Tablet PO 10 mg DAILY MASTER Administration Dextrose 12.5 gm 11/09/24 01:01 Dextrose 50% 25 Gm/50 Ml Syringe IV PUSH PRN PRN Hypoglycemia Protocol Diclofenac Sodium 1 applic 11/09/24 17:00 11/11/24 17:09 Diclofenac Sodium 1% 100 Gm Gel (*Bkc) TOPICAL 1 applic TID MASTER Administration Digoxin 125 mcg 11/09/24 09:00 11/12/24 09:34 Digoxin Tab 125 Mcg Tablet PO 125 mcg DAILY MASTER Administration Docusate Sodium 100 mg 11/10/24 09:55 11/12/24 09:34 Docusate Sodium 100 Mg Capsule PO 100 mg Q12H PRN Administration Constipation Enoxaparin Sodium 120 mg 11/09/24 17:00 11/12/24 05:51 Enoxaparin 120 Mg/0.8 Ml Syringe SUB-Q 120 mg Q12H MASTER Administration Furosemide 40 mg 11/09/24 09:00 11/12/24 09:36 Furosemide Inj 40 Mg/4 Ml Vial IV PUSH 40 mg BID MASTER Administration Gabapentin 300 mg 11/09/24 09:00 11/12/24 09:36 Gabapentin 300 Mg Capsule BY MOUTH 300 mg TID MASTER Administration Glucose 15 gm 11/09/24 01:01 Glucose Oral Gel 15 Gm Of Glucse In 37.5 Gm Tube PO PRN PRN Hypoglycemia Protocol Guaifenesin 1,200 mg 11/09/24 21:00 11/12/24 09:35 Guaifenesin 12 Hr 600 Mg Tabcr PO 11/16/24 20:59 1,200 mg Q12HR MASTER Administration Dextrose 1,000 mls @ 100 mls/hr 11/09/24 01:01 Dextrose 5% 1,000 Ml IVPB PRN PRN Hypoglycemia Protocol Ceftriaxone Sodium 2 gm in 100 mls @ 200 mls/hr 11/09/24 04:00 11/12/24 05:15 Rocephin 2 Gm/Ns 100 Ml IVPB Infused Q24H MASTER Infusion Azithromycin 500 mg in 250 mls @ 250 mls/hr 11/09/24 05:00 11/12/24 05:45 Zithromax IVPB Infused Q24H MASTER Infusion Insulin Aspart 2 - 5 units 11/09/24 08:00 11/11/24 17:10 Insulin Aspart (*Bkc) 100 Units/Ml SUB-Q 3 units TIDWM [facility] Administration Protocol Insulin Aspart 1 - 2 units 11/09/24 21:00 11/11/24 20:47 Insulin Aspart (*Bkc) 100 Units/Ml SUB-Q 1 units HS [facility] Administration Protocol Ipratropium [place] 0.5 mg 11/09/24 01:00 11/12/24 08:07 Ipratropium Br 0.02% Inh Soln 0.5 Mg/2.5 Ml Vial INHALATION 0.5 mg Q4HRT [facility] Administration Metoprolol Succinate 200 mg 11/09/24 09:00 11/12/24 09:35 Metoprolol Succinate Ext Rel 100 Mg Tabcr PO 200 mg DAILY [facility] Administration Morphine Sulfate 2 mg 11/09/24 01:03 11/10/24 03:37 Morphine Sulfate (*Crx) 2 Mg/Ml Inj IV PUSH 2 mg Q4H PRN Administration Pain Rated 7-10 Polyethylene Glycol 17 gm 11/10/24 09:55 11/11/24 09:38 Polyethylene Glycol 3350 17 Gm Powd.Pack PO 17 gm QAM [facility] Administration Spironolactone 25 mg 11/12/24 09:00 11/12/24 09:36 Spironolactone 25 Mg Tablet PO 25 mg QAM [facility] Administration Tramadol HCl 25 mg 11/09/24 01:03 11/10/24 08:13 Tramadol Hcl (*Crx) 25 Mg Tablet PO 25 mg Q4H PRN Administration Pain Rated 4-6 Warfarin Sodium 5 mg 11/10/24 17:00 11/11/24 17:10 Warfarin (*Pbkc) 5 Mg Tablet PO 5 mg DAILY@1700 [facility] Administration Warfarin Sodium 2 mg 11/10/24 17:00 11/11/24 17:09 Warfarin (*Pbkc) 2 Mg Tablet PO 2 mg DAILY@1700 MASTER Administration Radiology Results: ITS Impressions Chest CTA 11/09/24 11:12 Impression: No evidence of pulmonary embolus, aortic dissection, or aortic aneurysm. Minimal pericardial effusion. Small to moderate left pleural effusion and small right pleural effusion, with bilateral atelectatic change, left worse than right. Venous Doppler Study 11/09/24 16:04 IMPRESSION: 1. No deep venous thrombosis within the right lower extremity. 2.. Venous thrombosis of the posterior tibial and peroneal veins in the left lower extremity. Pelvis Ultrasound 11/09/24 16:35 IMPRESSION: Heterogeneous endometrial tissue which may indicate endometrial masses ,debris or hematoma. Further evaluation advised. Otherwise, normal pelvic ultrasound. Chest X-Ray 11/11/24 06:07 Impression: Moderate bilateral pleural effusions are significantly increased, with moderate pulmonary edema and bibasilar atelectatic change. Labs Labs: Laboratory Results - last 24 hr 11/11/24 11/11/24 11/11/24 11:24 15:15 16:42 WBC RBC Hgb Hct MCV MCH MCHC RDW Plt Count MPV Immature Gran % (Auto) Neut % (Auto) Lymph % (Auto) [place] % (Auto) Eos % (Auto) Baso % (Auto) Lymph # (Auto) [place] # (Auto) Eos # (Auto) Baso # (Auto) Abs Immat Gran (auto) Absolute Neuts (auto) Absolute Nucleated RBC Nucleated RBC % PT INR Sodium 133 L Potassium 3.5 Chloride 95 L Carbon Dioxide 28 Anion Gap 10 BUN 27 H Creatinine 1.03 H Estim Creat Clear Calc 57 Estimated GFR 53 L Glucose 261 H POC Capillary Glucose 253 H 260 H Calcium 8.3 L Magnesium Total Bilirubin AST ALT Alkaline Phosphatase Total Protein Albumin 11/11/24 11/12/24 11/12/24 20:45 04:13 07:25 WBC 7.4 RBC 3.99 L Hgb 12.2 Hct 35.5 L MCV 89.0 D MCH 30.6 MCHC 34.4 RDW 13.7 Plt Count 255 MPV 10.8 H Immature Gran % (Auto) 1.1 H Neut % (Auto) 78.7 H Lymph % (Auto) 8.8 L [place] % (Auto) 9.7 H Eos % (Auto) 1.2 Baso % (Auto) 0.5 Lymph # (Auto) 0.65 L [place] # (Auto) 0.7 H Eos # (Auto) 0.1 Baso # (Auto) 0.0 Abs Immat Gran (auto) 0.08 H Absolute Neuts (auto) 5.8 Absolute Nucleated RBC 0.000 Nucleated RBC % 0.0 PT 17.9 H INR 1.4 Sodium 135 L Potassium 3.3 L Chloride 97 L Carbon Dioxide 28 Anion Gap 10 BUN 24 H Creatinine 0.99 Estim Creat Clear Calc 59 Estimated GFR 55 L Glucose 212 H POC Capillary Glucose 229 H 226 H Calcium 8.1 L Magnesium 2.3 Total Bilirubin 0.7 AST 72 H ALT 63 H Alkaline Phosphatase 126 Total Protein 7.0 Albumin 3.2 L Quality VTE Prophylaxis VTE prophylaxis: pharmacologic ordered
--- NOTE | 2024-11-12 10:50 | PM.PNPUL ---
Progress Note: A&P Assessment and Plan (1) Acute hypoxemic respiratory failure: Code(s): J96.01 - Acute respiratory failure with hypoxia Status: Acute Assessment and Plan: Does not use oxygen at home, had increased O2 need yesterday, still on significant amounts She can have this weaned. she is using AirVo because this gives some help with wowrk of breathing and is better tolerated; patient gets anxious easily. No elevation of pCO2 so she did not need BiPAP. Cause for acute hypoxemic respiratory failure is not clear. She has small pleural effusions, CTA was negative for a pulmonary embolus but she does have acute thrombus in the left lower leg. May be COPD exacerbation. (2) Chronic obstructive pulmonary disease: Code(s): J44.9 - Chronic obstructive pulmonary disease, unspecified Status: Chronic Assessment and Plan: Diagnosed 5 years ago, med list shows Breztri and albuterol. One of her clinic notes said she is not using the Breztri regularly. She is a lifelong never smoker but she has had secondhand smoke from her parents, her ex- smoked heavily however they have not been together for 35 years. She did not have any occupational exposure. She will continue bronchodilators. (3) Deep vein thrombosis (DVT) of left lower extremity: Code(s): I82.402 - Acute embolism and thrombosis of unspecified deep veins of left lower extremity Status: Acute Assessment and Plan: Eliquis stopped, full dose Lovenox started 120 mg subQ Q 12 hours. She failed Eliquis out patient. Plan plan: Wean O2, continue diuretics, don't use ipratropium Q 4 hours. Continue Duoneb t.i.d. Lower FiO2. She is on AirVo, 48% Off antibiotics. She is not infected, has been on these starting 11/09, wbc normal 7.4k, no fever, no sputum. Add metolazone 2.5 mg 30 minutes before one of her 2 doses of IV Lasix 40 mg. I conferred with Dr Jimenez. He is fine with adding metolazone. Her renal function can handle it currently. BUN 24, creat 0.99. Her effusions are bigger. I cannot get the image to display, but she is (+) fluid, and doing thoracentesis is not going to add anything in the long run since this is from cardiac decompensation. Subjective Date/time seen: 11/12/24 10:50 Interval history: 11/12/24; Alert, feels better. She is on lower O2, AirVo 40 L/min and 48% FiO2. Yesterday, she had an ABG on BiPAP 12/6 and 100% pH 7.41, pCO2 42.8, PO2 82.4, Aa gradient 273 which is high and shows a decrease in oxygenation, saturation 96.2%. She does not recall having a difficult time yesterday. She does feel better using Airvo, on much lower oxygen flow, 48% & 40 L/min compared to 100% with BiPAP 12/6. She is not coughing up sputum. Weight is down a small amount, 124.5 kg, at highest was 127.2 kg 2 days ago; Admission weight 122.4 so still above admission weight. She is having an episode of diastolic failure, getting fluid restricted and diuresis with Lasix 40 mg IV b.i.dy and spironolactone 25 mg po daily. BUN today 24, creat 0.99. CXR 11/11 : Moderate bilateral pleural effusions are significantly increased, with moderate pulmonary edema and bibasilar atelectatic change. 11/10/24; follow up; She feels better, now having her AirVo weaned. FiO2 was 75%, now 60%. She sat on the side of the bed for an hour and half, did not want to get into the chair. 11/09/24, new consult; Columba Voss is a 69-year-old female with atrial fib for the last 5 years has been well managed with Coumadin. She has COPD, uses Breztri and albuterol. About a month ago, her protective clothing issuer switched her to a Eliquis. Night before last, she developed neck pain, very uncomfortable, worse when she was sleeping in bed so she got up and slept in the recliner. The next day, the pain in the neck had moved down to her anterior chest and to left ribs, wrapping around the chest. She was increasingly short of breath, presented at [place] complaining of LUQ pain. She had nausea, no vomiting, no appetite for a week before arrival. She was in atrial fibrillation, 93% on room air. WBC was high 15.7. Lactic acid 2.7, She had a small left pleural effusion. She was transferred to [facility], now in IMU, has increased respiratory distress with increased requirement of oxygen up to 9 L a minute. Testing today 11/09 : Venous thrombosis of the posterior tibial and peroneal veins in the left lower extremity. CTA showed no PE; moderate LEft pleural effusion and left atelectasis. She is already on Eliquis 5 mg bid for atrial fib. She is more short of breath today, now on 9 L. She had decreased appetite before admission, increased welling in both legs. 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 Has not worked for years. She had no occupational exposure to vapors, dusts, fumes, asbestos. PMH: Decreased LV function, diastolic dysfunction, (+) home sleep test not on treatment. COPD. No tobacco. Lots of second hand tobacco per family. DM on insulin, CKD stage 3. DATA * 11/09/24 LE Dopplers; No deep venous thrombosis within the right lower extremity. Venous thrombosis of the posterior tibial and peroneal veins in the left lower extremity. * 11/09/24 CTA -No evidence of pulmonary embolus, aortic dissection, or aortic aneurysm. Minimal pericardial effusion. Small to moderate left pleural effusion and small right pleural effusion, with bilateral atelectatic change, left worse than right. Review of Systems Review of Systems: All systems reviewed & are unremarkable except as noted in HPI and below Exam Narrative: GEN: alert, speaks in sentences, not in distress; wearing AirVo 48% this is lower CHEST: Equal air entry, symmetric excursion, decreased breath sounds CV: Regular S1S2 no m/g/r ABD : (+) bowel sounds, soft. Extremities : no clubbing, no cyanosis, 3+ edema in lower legs, 1+ in hands PSYCH: Follows commands Objective Data Vital Signs Vital Signs: Vital Signs - 24 hr 11/11/24 11:10 11/11/24 11:10 11/11/24 11:18 Temperature Pulse Rate 91 91 84 Respiratory Rate 28 H 28 H 29 H Blood Pressure Pulse Oximetry 95 Oxygen Delivery BiPAP Oxygen Flow Rate Fraction of Inspired Oxygen 11/11/24 11:44 11/11/24 12:00 11/11/24 12:00 Temperature 36.3 C L Pulse Rate 80 102 H Respiratory Rate 28 H Blood Pressure 131/69 Pulse Oximetry 94 Oxygen Delivery BiPAP Oxygen Flow Rate Fraction of Inspired Oxygen 40 11/11/24 14:00 11/11/24 15:38 11/11/24 15:38 Temperature Pulse Rate 88 87 Respiratory Rate 22 H Blood Pressure Pulse Oximetry 94 Oxygen Delivery High Flow Therapy with Na Oxygen Flow Rate 50 Fraction of Inspired Oxygen 50 11/11/24 15:48 11/11/24 16:00 11/11/24 16:00 Temperature 36.8 C Pulse Rate 78 91 95 Respiratory Rate 22 H 24 H Blood Pressure 129/96 H Pulse Oximetry 91 Oxygen Delivery Oxygen Flow Rate Fraction of Inspired Oxygen 11/11/24 16:00 11/11/24 16:11 11/11/24 18:00 Temperature Pulse Rate 86 Respiratory Rate Blood Pressure Pulse Oximetry 91 Oxygen Delivery BiPAP High Flow Therapy with Na Oxygen Flow Rate 40 Fraction of Inspired Oxygen 40 40 11/11/24 20:00 11/11/24 20:00 11/11/24 20:00 Temperature 36.7 C Pulse Rate 114 H 92 100 Respiratory Rate 24 H 20 Blood Pressure 146/86 H Pulse Oximetry 96 95 Oxygen Delivery High Flow Therapy with Na Oxygen Flow Rate 40 Fraction of Inspired Oxygen 40 11/11/24 20:11 11/11/24 20:18 11/11/24 20:21 Temperature Pulse Rate 99 91 Respiratory Rate 20 20 Blood Pressure Pulse Oximetry 95 Oxygen Delivery High Flow Therapy with Na Oxygen Flow Rate 40 Fraction of Inspired Oxygen 40 11/11/24 22:00 11/11/24 23:32 11/11/24 23:40 Temperature Pulse Rate 90 79 89 Respiratory Rate 20 20 Blood Pressure Pulse Oximetry Oxygen Delivery Oxygen Flow Rate Fraction of Inspired Oxygen 11/12/24 00:00 11/12/24 00:00 11/12/24 00:00 Temperature 36.6 C Pulse Rate 87 89 89 Respiratory Rate 24 H 24 H Blood Pressure 140/85 Pulse Oximetry 92 92 Oxygen Delivery High Flow Therapy with Na Oxygen Flow Rate 40 Fraction of Inspired Oxygen 40 11/12/24 02:00 11/12/24 04:00 11/12/24 04:00 Temperature 36.6 C Pulse Rate 90 92 92 Respiratory Rate 24 H 20 Blood Pressure 152/73 H Pulse Oximetry 93 93 Oxygen Delivery High Flow Therapy with Na Oxygen Flow Rate 40 Fraction of Inspired Oxygen 47 11/12/24 04:00 11/12/24 04:46 11/12/24 04:57 Temperature Pulse Rate 94 85 92 Respiratory Rate 20 20 Blood Pressure Pulse Oximetry Oxygen Delivery Oxygen Flow Rate Fraction of Inspired Oxygen 11/12/24 05:14 11/12/24 08:00 11/12/24 08:00 Temperature 36.9 C Pulse Rate 82 88 Respiratory Rate 20 Blood Pressure 147/74 H Pulse Oximetry 95 96 Oxygen Delivery High Flow Therapy with Na Oxygen Flow Rate 40 Fraction of Inspired Oxygen 47 11/12/24 08:00 11/12/24 08:08 11/12/24 08:08 Temperature Pulse Rate 92 97 Respiratory Rate 20 Blood Pressure Pulse Oximetry 94 Oxygen Delivery High Flow Therapy with Na Oxygen Flow Rate 40 Fraction of Inspired Oxygen 47 11/12/24 08:17 11/12/24 09:34 11/12/24 09:35 Temperature Pulse Rate 102 H 92 92 Respiratory Rate 20 Blood Pressure Pulse Oximetry Oxygen Delivery Oxygen Flow Rate Fraction of Inspired Oxygen 11/12/24 10:00 Temperature Pulse Rate 89 Respiratory Rate Blood Pressure Pulse Oximetry Oxygen Delivery Oxygen Flow Rate Fraction of Inspired Oxygen Intake/Output Intake/Output: Intake & Output 11/09/24 11/10/24 11/11/24 11/12/24 23:59 23:59 23:59 23:59 Intake Total 701 185 4222 1140 Output Total 402 260 0187 Balance -160 321 995 9177 Meds/Results Medications: Active Medications Generic Name Dose Route Start Last Admin Trade Name Freq PRN Reason Stop Dose Admin Acetaminophen 650 mg 11/09/24 01:03 Acetaminophen 325 Mg Tablet PO Q4H PRN Mild Pain (1-3) or Fever Amlodipine Besylate 10 mg 11/10/24 09:00 11/12/24 09:35 Amlodipine Besylate 10 Mg Tablet PO 10 mg DAILY MASTER Administration Dextrose 12.5 gm 11/09/24 01:01 Dextrose 50% 25 Gm/50 Ml Syringe IV PUSH PRN PRN Hypoglycemia Protocol Diclofenac Sodium 1 applic 11/09/24 17:00 11/11/24 17:09 Diclofenac Sodium 1% 100 Gm Gel (*Bkc) TOPICAL 1 applic TID MASTER Administration Digoxin 125 mcg 11/09/24 09:00 11/12/24 09:34 Digoxin Tab 125 Mcg Tablet PO 125 mcg DAILY MASTER Administration Docusate Sodium 100 mg 11/10/24 09:55 11/12/24 09:34 Docusate Sodium 100 Mg Capsule PO 100 mg Q12H PRN Administration Constipation Enoxaparin Sodium 120 mg 11/09/24 17:00 11/12/24 05:51 Enoxaparin 120 Mg/0.8 Ml Syringe SUB-Q 120 mg Q12H MASTER Administration Furosemide 40 mg 11/09/24 09:00 11/12/24 09:36 Furosemide Inj 40 Mg/4 Ml Vial IV PUSH 40 mg BID MASTER Administration Gabapentin 300 mg 11/09/24 09:00 11/12/24 09:36 Gabapentin 300 Mg Capsule BY MOUTH 300 mg TID MASTER Administration Glucose 15 gm 11/09/24 01:01 Glucose Oral Gel 15 Gm Of Glucse In 37.5 Gm Tube PO PRN PRN Hypoglycemia Protocol Guaifenesin 1,200 mg 11/09/24 21:00 11/12/24 09:35 Guaifenesin 12 Hr 600 Mg Tabcr PO 11/16/24 20:59 1,200 mg Q12HR MASTER Administration Dextrose 1,000 mls @ 100 mls/hr 11/09/24 01:01 Dextrose 5% 1,000 Ml IVPB PRN PRN Hypoglycemia Protocol Ceftriaxone Sodium 2 gm in 100 mls @ 200 mls/hr 11/09/24 04:00 11/12/24 05:15 Rocephin 2 Gm/Ns 100 Ml IVPB Infused Q24H MASTER Infusion Azithromycin 500 mg in 250 mls @ 250 mls/hr 11/09/24 05:00 11/12/24 05:45 Zithromax IVPB Infused Q24H MASTER Infusion Insulin Aspart 2 - 5 units 11/09/24 08:00 11/11/24 17:10 Insulin Aspart (*Bkc) 100 Units/Ml SUB-Q 3 units TIDWM MASTER Administration Protocol Insulin Aspart 1 - 2 units 11/09/24 21:00 11/11/24 20:47 Insulin Aspart (*Bkc) 100 Units/Ml SUB-Q 1 units HS MASTER Administration Protocol Ipratropium [place] 0.5 mg 11/09/24 01:00 11/12/24 08:07 Ipratropium Br 0.02% Inh Soln 0.5 Mg/2.5 Ml Vial INHALATION 0.5 mg Q4HRT MASTER Administration Metoprolol Succinate 200 mg 11/09/24 09:00 11/12/24 09:35 Metoprolol Succinate Ext Rel 100 Mg Tabcr PO 200 mg DAILY MASTER Administration Morphine Sulfate 2 mg 11/09/24 01:03 11/10/24 03:37 Morphine Sulfate (*Crx) 2 Mg/Ml Inj IV PUSH 2 mg Q4H PRN Administration Pain Rated 7-10 Polyethylene Glycol 17 gm 11/10/24 09:55 11/11/24 09:38 Polyethylene Glycol 3350 17 Gm Powd.Pack PO 17 gm QAM MASTER Administration Spironolactone 25 mg 11/12/24 09:00 11/12/24 09:36 Spironolactone 25 Mg Tablet PO 25 mg QAM MASTER Administration Tramadol HCl 25 mg 11/09/24 01:03 11/10/24 08:13 Tramadol Hcl (*Crx) 25 Mg Tablet PO 25 mg Q4H PRN Administration Pain Rated 4-6 Warfarin Sodium 5 mg 11/10/24 17:00 11/11/24 17:10 Warfarin (*Pbkc) 5 Mg Tablet PO 5 mg DAILY@1700 MASTER Administration Warfarin Sodium 2 mg 11/10/24 17:00 11/11/24 17:09 Warfarin (*Pbkc) 2 Mg Tablet PO 2 mg DAILY@1700 MASTER Administration Radiology Results: ITS Impressions Chest CTA 11/09/24 11:12 Impression: No evidence of pulmonary embolus, aortic dissection, or aortic aneurysm. Minimal pericardial effusion. Small to moderate left pleural effusion and small right pleural effusion, with bilateral atelectatic change, left worse than right. Venous Doppler Study 11/09/24 16:04 IMPRESSION: 1. No deep venous thrombosis within the right lower extremity. 2.. Venous thrombosis of the posterior tibial and peroneal veins in the left lower extremity. Pelvis Ultrasound 11/09/24 16:35 IMPRESSION: Heterogeneous endometrial tissue which may indicate endometrial masses ,debris or hematoma. Further evaluation advised. Otherwise, normal pelvic ultrasound. Chest X-Ray 11/11/24 06:07 Impression: Moderate bilateral pleural effusions are significantly increased, with moderate pulmonary edema and bibasilar atelectatic change. Labs Labs: Laboratory Results - last 24 hr 11/11/24 11/11/24 11/11/24 11:24 15:15 16:42 WBC RBC Hgb Hct MCV MCH MCHC RDW Plt Count MPV Immature Gran % (Auto) Neut % (Auto) Lymph % (Auto) [place] % (Auto) Eos % (Auto) Baso % (Auto) Lymph # (Auto) [place] # (Auto) Eos # (Auto) Baso # (Auto) Abs Immat Gran (auto) Absolute Neuts (auto) Absolute Nucleated RBC Nucleated RBC % PT INR Sodium 133 L Potassium 3.5 Chloride 95 L Carbon Dioxide 28 Anion Gap 10 BUN 27 H Creatinine 1.03 H Estim Creat Clear Calc 57 Estimated GFR 53 L Glucose 261 H POC Capillary Glucose 253 H 260 H Calcium 8.3 L Magnesium Total Bilirubin AST ALT Alkaline Phosphatase Total Protein Albumin 11/11/24 11/12/24 11/12/24 20:45 04:13 07:25 WBC 7.4 RBC 3.99 L Hgb 12.2 Hct 35.5 L MCV 89.0 D MCH 30.6 MCHC 34.4 RDW 13.7 Plt Count 255 MPV 10.8 H Immature Gran % (Auto) 1.1 H Neut % (Auto) 78.7 H Lymph % (Auto) 8.8 L [place] % (Auto) 9.7 H Eos % (Auto) 1.2 Baso % (Auto) 0.5 Lymph # (Auto) 0.65 L [place] # (Auto) 0.7 H Eos # (Auto) 0.1 Baso # (Auto) 0.0 Abs Immat Gran (auto) 0.08 H Absolute Neuts (auto) 5.8 Absolute Nucleated RBC 0.000 Nucleated RBC % 0.0 PT 17.9 H INR 1.4 Sodium 135 L Potassium 3.3 L Chloride 97 L Carbon Dioxide 28 Anion Gap 10 BUN 24 H Creatinine 0.99 Estim Creat Clear Calc 59 Estimated GFR 55 L Glucose 212 H POC Capillary Glucose 229 H 226 H Calcium 8.1 L Magnesium 2.3 Total Bilirubin 0.7 AST 72 H ALT 63 H Alkaline Phosphatase 126 Total Protein 7.0 Albumin 3.2 L
[2024-11-12 11:55] LABS: Glucose Point of Care 253 mg/dl (65-105)
[2024-11-12] MEDS: POTASSIUM CHLORIDE 20 MEQ ER TABLET 40 MEQ PO ×2 (12:49→17:41)
[2024-11-12] MEDS: IPRATROPIUM 0.5 MG/ALBUTEROL SULFATE 2.5 MG AMPUL.NEB 3 ML INHALATION ×2 (13:27→19:52)
[2024-11-12 15:24] LABS: Glucose Point of Care 242 mg/dl (65-105)
[2024-11-12] MEDS: WARFARIN (*PBKC) 5 MG TABLET PO (17:39)
[2024-11-12] MEDS: WARFARIN (*PBKC) 2 MG TABLET PO (17:39)
[2024-11-12 20:09] LABS: Glucose Point of Care 266 mg/dl (65-105)
[2024-11-13] VITALS (23 sets, daily range): BP systolic 121–153; BP diastolic 71–89; PULSE 63–96; RESP 14–20; TEMP 36.4–37.1; O2SAT 95–100
[2024-11-13 04:24] LABS: Basophils Absolute Auto 0.1 K/mm3 (0.0-0.1); Basophils Percent Auto 0.9 % (0.2-1.2); Eosinophils Absolute Auto 0.2 K/mm3 (0-0.3); Eosinophils Percent Auto 2.2 % (0-4.4); Hematocrit 37.7 % (37.0-47.0); Hemoglobin 12.2 g/dL (12.0-15.0); Immature Granulocyte Absolute 0.17 K/mm3 (0.00-0.031); Immature Granulocyte Percent A 2.5 % (0-0.5); Lymphocytes Absolute Auto 1.03 K/mm3 (0.9-3.2); Lymphocytes Percent Auto 15.2 % (18.3-44.2); Mean Corpuscular HGB Conc 32.4 g/dl (32-36); Mean Corpuscular Hemoglobin 29.7 pg (26-34); Mean Corpuscular Volume 91.7 fl (80-100); Monocytes Absolute Auto 0.8 K/mm3 (0.1-0.6); Monocytes Percent Auto 11.7 % (2.6-8.5); Neutrophils Absolute Auto 4.6 K/mm3 (1.3-6.7); Neutrophils Percent Auto 67.5 % (45.5-73.1); Platelet Count Result 287 k/mm3 (150-375); Red Blood Count 4.11 M/mm3 (4.2-5.4); Red Cell Distribution Width 14.2 % (11.5-14.5); White Blood Count 6.8 K/mm3 (4.5-10.0)
[2024-11-13 04:37] LABS: INR 1.4; Prothrombin Time 17.8 Seconds (11.1-14.7)
[2024-11-13 05:44] LABS: Alanine Aminotransferase 76 U/L (6-35); Albumin Level 3.4 g/dL (3.5-5.1); Alkaline Phosphatase 146 U/L (38-126); Anion Gap 8 mmol/L (4-12); Aspartate Amino Transferase 75 U/L (14-36); Bilirubin,Total 0.8 mg/dL (0.2-1.3); Blood Urea Nitrogen 22 mg/dL (7-17); Calcium 8.4 mg/dL (8.4-10.2); Carbon Dioxide 27 mmol/L (22-30); Chloride 99 mmol/L (98-107); Estimated CRCL calculation 61 ml/min; Estimated Glomerular Filt Rate 58; Glucose 169 mg/dL (65-110); Magnesium 2.4 mg/dL (1.6-2.3); Potassium 3.3 mmol/L (3.4-5.0); Sodium 134 mmol/L (137-145)
[2024-11-13] MEDS: ENOXAPARIN 120 MG/0.8 ML SYRINGE SUB-Q ×2 (06:07→17:35)
[2024-11-13 07:32] LABS: Glucose Point of Care 211 mg/dl (65-105)
[2024-11-13] MEDS: IPRATROPIUM 0.5 MG/ALBUTEROL SULFATE 2.5 MG AMPUL.NEB 3 ML INHALATION ×3 (07:59→19:58)
[2024-11-13] MEDS: METOPROLOL SUCCINATE EXT REL 100 MG TABCR 200 MG PO (08:37)
[2024-11-13] MEDS: amLODIPine BESYLATE 10 MG TABLET PO (08:37)
[2024-11-13] MEDS: metOLazone 2.5 MG TABLET PO (08:37)
[2024-11-13] MEDS: SPIRONOLACTONE 25 MG TABLET PO (08:37)
[2024-11-13] MEDS: guaiFENesin 12 HR 600 MG TABCR 1200 MG PO ×2 (08:37→21:07)
[2024-11-13] MEDS: GABAPENTIN 300 MG CAPSULE BY MOUTH ×3 (08:37→17:35)
[2024-11-13] MEDS: DIGOXIN TAB 125 MCG TABLET PO (08:37)
[2024-11-13] MEDS: POTASSIUM CHLORIDE 20 MEQ ER TABLET 40 MEQ PO ×2 (08:40→12:16)
[2024-11-13] MEDS: FUROSEMIDE INJ 40 MG/4 ML VIAL IV PUSH ×2 (08:40→17:35)
[2024-11-13] MEDS: INSULIN ASPART (*BKC) 100 UNITS/ML SUB-Q ×4 (08:40→21:09)
[2024-11-13] MEDS: DICLOFENAC SODIUM 1% 100 GM GEL (*BKC) 1 APPLIC TOPICAL ×3 (08:41→21:10)
--- NOTE | 2024-11-13 09:38 | PM.IMPN ---
Progress Note: A&P Assessment and Plan (1) Heart failure with reduced ejection fraction: Code(s): I50.20 - Unspecified systolic (congestive) heart failure Status: Acute Assessment and Plan: BNP 2285>1870>2410. 11/11/24 Patient had worsening shortness of breath overnight. Patient immediately placed on BiPAP. Improved symptomatology. She has significant wet crackles diffusely. No wheezing, no stridor. Stat chest x-ray demonstrates severe pulmonary edema. Lower extremities still with 2+ pitting edema bilaterally below the knees. Daily weights and urine output unclear per the nursing team as she has been going in her depends. ABG pCO2 43.8, pH 7.413. Given Lasix 80 mg IV x1. Echocardiogram: Summary 1. Complete two-dimensional, color flow and Doppler transthoracic echocardiogram is performed. 2. Left ventricular chamber dimension is normal. 3. Left ventricular systolic function is normal, estimated at 60-65%. 4. The left ventricular diastolic function is abnormal. 5. E/e' 16 is elevated. 6. Atrial fibrillation. 7. Left atrial chamber dimension is moderately enlarged. 8. Right atrial chamber dimension is mildly enlarged. 9. There is mild aortic valve sclerosis. 10. There is trace mitral valve regurgitation. 11. No pulmonary hypertension, estimated pulmonary arterial systolic pressure is 30 mmHg. 12. There is trivial pericardial effusion. Furosemide 40 mg ivp BID. Metolazone 2.5 mg PO at 8:30 am. Spironolactone 25 mg PO qam. Daily weights. Strict I&O's. Fluid restriction 1500 ml. Cardiology consult, appreciate recommendations. (2) Paroxysmal atrial fibrillation: Code(s): I48.0 - Paroxysmal atrial fibrillation Status: Chronic Assessment and Plan: Patient was taking Eliquis 5 mg PO BID for one month, stopped on 11/09 and started back on Coumadin. LE dopplers positive for a DVT LLE. Switched on 11/09 to Enoxaprin 120 mg subq q 12 and increase Coumadin 7 mg PO daily. Metoprolol Succinate 200 mg PO daily. (3) COPD (chronic obstructive pulmonary disease): Code(s): J44.9 - Chronic obstructive pulmonary disease, unspecified Status: Acute Assessment and Plan: Antibiotics discontinued on 11/12/24. Guaifenesin 1,200 mg PO BID. Incentive Spirometer. Ipratropium 0.5 mg Neb q 4. WBC improving from 15.7>14.1>13.4>8.8>7.4>6.8. 11/09/24- ABG: pH 7.438, pC02 36.1, p02 59.9, 02 saturation 92.0. Pulmonology consult, appreciate recommendations. (4) ZARAGOZA (dyspnea on exertion): Code(s): R06.09 - Other forms of dyspnea Status: Acute Assessment and Plan: D dimer 1.70. Chest CTA negative. LE dopplers:IMPRESSION: 1. No deep venous thrombosis within the right lower extremity. 2.. Venous thrombosis of the posterior tibial and peroneal veins in the left lower extremity. Pulmonology consult, appreciate recommendations. Better. She was on higher AirVO, Fi02 47% and 40 L/minute with Sa02 92%. (5) Deep vein thrombosis (DVT) of left lower extremity: Code(s): I82.402 - Acute embolism and thrombosis of unspecified deep veins of left lower extremity Status: Acute Assessment and Plan: LE doppler: IMPRESSION: 1. No deep venous thrombosis within the right lower extremity. 2.. Venous thrombosis of the posterior tibial and peroneal veins in the left lower extremity. Patient reported that she was previously on Coumadin. Patient switched to Eliquis a month ago. Patient reports compliance with Eliquis. Stopped Eliquis on 11/09 and restarted Warfarin with Lovenox bridge. Lovenox 120 mg subq q12. INR 1.4. Increase Warfarin 8 mg PO daily. Monitor PT/INR daily. (6) Abdominal pain: Code(s): R10.9 - Unspecified abdominal pain Status: Acute Assessment and Plan: Chest Abdomen/pelvis showed: IMPRESSION: Small left-sided pleural effusion with adjacent compressive atelectasis. Small pericardial effusion. Global enlargement of the bilateral ovaries and uterus, abnormal for a patient of this age. Fatty infiltration of an enlarged liver. Abdominal US: IMPRESSION: Heterogeneous endometrial tissue which may indicate endometrial masses ,debris or hematoma. Further evaluation advised. Otherwise, normal pelvic ultrasound. 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 MR pelvis with and without contrast ordered for further evaluation. (7) DM2 (diabetes mellitus, type 2): Qualifiers: Diabetes mellitus complication detail: with other circulatory complications Diabetes mellitus complication status: with circulatory complication Code(s): E11.9 - Type 2 diabetes mellitus without complications Status: Chronic Assessment and Plan: Accuchecks, SSI, and hypoglycemic protocol. HgbA1C 9.1% on 08/30/24. (8) Hypokalemia: Code(s): E87.6 - Hypokalemia Status: Acute Assessment and Plan: Potassium 3.3. Patient given Potassium Chloride 40 meq q4 x 2 doses. Trend labs. Plan This is a 69-year-old female with a history of morbid obesity with BMI 48, heart failure with reduced ejection fraction and combined diastolic dysfunction, COPD, prior tobacco dependence, [id number] diabetes mellitus, CKD stage 3, gout, paroxysmal AFib on Eliquis, hypertension, hyperlipidemia she presented to [facility] on 11/08/2024 with complaint of neck pain which had been going on for about 3 days. She denied any prior trauma or surgery. However that pain resolved and she developed left upper quadrant pain. She also reported shortness of breath to the ER physician however upon arrival to [place] she denied it albeit was in clear respiratory distress. She also admits to nausea but no vomiting. Her last bowel movement was about 2 days [employer] and she usually has bowel movements every 2-3 days, that is normal for her. She otherwise has not had any increase distension of her abdomen. She does not know if she has gained weight, she has swelling on her legs per reports that her usual. Evaluation at [facility] revealed atrial fibrillation rate controlled, tachypnea, blood pressure 119/75, saturating 93% on room air. WBC count 15.7, sodium 133, potassium 3.3, chloride 95, BUN 19, serum creatinine 1.50, glucose 428 than 339, lactic acid 2.7 then 3.1. She received a diuretic but did not urinate in response. Troponin 76.6>80.5>0.026. High limit of normal is 60.4. CRP 23, BNP 2285, EKG without any acute ischemia. A subsequent CT chest abdomen pelvis with contrast revealed a small left-sided pleural effusion with adjacent compressive atelectasis, small pericardial effusion, lobe enlargement of bilateral ovaries and uterus, fatty infiltration of an enlarged liver. She was subsequently transferred to [place] for further evaluation and treatment. Subjective Date/time seen: 11/13/24 09:38 Interval history: Patient sitting up in a chair. Patient reports having a bowel movement this morning. Patient denies chest pain, palpitations, headache, dizziness, nausea, and vomiting. Patient reports that she slept a little better last night. Review of Systems Review of Systems: All systems reviewed & are unremarkable except as noted in HPI and below Exam Const: General: comfortable and no acute distress Resp: Effort & Inspection: normal respiratory effort Auscultation: diminished lung sounds Cardio: Rhythm: abnormal rhythm irregularly irregular (Afib 100. ) GI: GI Palp: Yes Soft to palpation Auscultation: normal bowel sounds Neuro: Speech: normal speech Extrem: General: pedal edema bilaterally 2+ Psych: Mental Status: mental status grossly normal Affect: normal affect Objective Data Vital Signs Vital Signs: Vital Signs - 24 hr 11/12/24 10:00 11/12/24 11:25 11/12/24 12:00 Temperature Pulse Rate 89 Respiratory Rate Blood Pressure Pulse Oximetry 94 96 Oxygen Delivery High Flow Therapy with Na High Flow Therapy with Na Oxygen Flow Rate 40 40 Fraction of Inspired Oxygen 47 47 11/12/24 12:00 11/12/24 12:08 11/12/24 13:27 Temperature 98.0 F Pulse Rate 99 84 Respiratory Rate 22 H Blood Pressure 146/72 H Pulse Oximetry 92 92 Oxygen Delivery High Flow Therapy with Na Oxygen Flow Rate 40 Fraction of Inspired Oxygen 40 11/12/24 13:27 11/12/24 13:35 11/12/24 15:58 Temperature 98.1 F Pulse Rate 92 93 78 Respiratory Rate 22 H 22 H 20 Blood Pressure 135/62 Pulse Oximetry 95 Oxygen Delivery Oxygen Flow Rate Fraction of Inspired Oxygen 11/12/24 16:00 11/12/24 16:00 11/12/24 18:00 Temperature Pulse Rate 88 79 Respiratory Rate Blood Pressure Pulse Oximetry 96 Oxygen Delivery High Flow Therapy with Na Oxygen Flow Rate 40 Fraction of Inspired Oxygen 47 11/12/24 19:52 11/12/24 20:00 11/12/24 20:00 Temperature 98.2 F Pulse Rate 82 90 94 Respiratory Rate 18 18 18 Blood Pressure 134/58 L Pulse Oximetry 99 97 Oxygen Delivery High Flow Therapy with Na Oxygen Flow Rate 40 Fraction of Inspired Oxygen 40 11/12/24 20:00 11/12/24 20:04 11/12/24 20:12 Temperature Pulse Rate 82 82 Respiratory Rate 18 Blood Pressure Pulse Oximetry 97 Oxygen Delivery High Flow Therapy with Na Oxygen Flow Rate 40 Fraction of Inspired Oxygen 40 11/12/24 21:32 11/13/24 00:00 11/13/24 00:00 Temperature 98.2 F Pulse Rate 84 73 71 Respiratory Rate 19 19 Blood Pressure 121/71 Pulse Oximetry 95 95 Oxygen Delivery High Flow Therapy with Na Oxygen Flow Rate 40 Fraction of Inspired Oxygen 40 11/13/24 00:00 11/13/24 02:00 11/13/24 04:00 Temperature 98.3 F Pulse Rate 71 82 77 Respiratory Rate 18 Blood Pressure 142/74 H Pulse Oximetry 95 Oxygen Delivery Oxygen Flow Rate Fraction of Inspired Oxygen 11/13/24 04:00 11/13/24 04:00 11/13/24 06:00 Temperature Pulse Rate 79 79 84 Respiratory Rate 18 Blood Pressure Pulse Oximetry 95 Oxygen Delivery High Flow Therapy with Na Oxygen Flow Rate 40 Fraction of Inspired Oxygen 40 11/13/24 08:00 11/13/24 08:00 11/13/24 08:00 Temperature 98.3 F Pulse Rate 85 63 Respiratory Rate 18 18 Blood Pressure 144/83 H Pulse Oximetry 95 97 Oxygen Delivery High Flow Therapy with Na Oxygen Flow Rate 40 Fraction of Inspired Oxygen 40 11/13/24 08:11 11/13/24 08:40 Temperature Pulse Rate 95 Respiratory Rate 18 Blood Pressure Pulse Oximetry 97 Oxygen Delivery High Flow Therapy with Na Oxygen Flow Rate 35 Fraction of Inspired Oxygen 40 Intake/Output Intake/Output: Intake & Output 11/10/24 11/11/24 11/12/24 11/13/24 23:59 23:59 23:59 23:59 Intake Total 960 2280 1620 240 Output Total 750 1500 553 400 Balance 187 929 8416 -160 Meds/Results Medications: Active Medications Generic Name Dose Route Start Last Admin Trade Name Freq PRN Reason Stop Dose Admin Acetaminophen 650 mg 11/09/24 01:03 Acetaminophen 325 Mg Tablet PO Q4H PRN Mild Pain (1-3) or Fever Albuterol/Ipratropium 3 ml 11/12/24 14:00 11/13/24 07:59 Ipratropium 0.5 Mg/Albuterol Sulfate 2.5 Mg Ampul.Neb 3 Ml INHALATION 3 ml TIDRT MASTER Administration Amlodipine Besylate 10 mg 11/10/24 09:00 11/13/24 08:37 Amlodipine Besylate 10 Mg Tablet PO 10 mg DAILY MASTER Administration Dextrose 12.5 gm 11/09/24 01:01 Dextrose 50% 25 Gm/50 Ml Syringe IV PUSH PRN PRN Hypoglycemia Protocol Diclofenac Sodium 1 applic 11/09/24 17:00 11/13/24 08:41 Diclofenac Sodium 1% 100 Gm Gel (*Bkc) TOPICAL 1 applic TID MASTER Administration Digoxin 125 mcg 11/09/24 09:00 11/13/24 08:37 Digoxin Tab 125 Mcg Tablet PO 125 mcg DAILY MASTER Administration Docusate Sodium 100 mg 11/10/24 09:55 11/12/24 09:34 Docusate Sodium 100 Mg Capsule PO 100 mg Q12H PRN Administration Constipation Enoxaparin Sodium 120 mg 11/09/24 17:00 11/13/24 06:07 Enoxaparin 120 Mg/0.8 Ml Syringe SUB-Q 120 mg Q12H MASTER Administration Furosemide 40 mg 11/09/24 09:00 11/13/24 08:40 Furosemide Inj 40 Mg/4 Ml Vial IV PUSH 40 mg BID MASTER Administration Gabapentin 300 mg 11/09/24 09:00 11/13/24 08:37 Gabapentin 300 Mg Capsule BY MOUTH 300 mg TID MASTER Administration Glucose 15 gm 11/09/24 01:01 Glucose Oral Gel 15 Gm Of Glucse In 37.5 Gm Tube PO PRN PRN Hypoglycemia Protocol Guaifenesin 1,200 mg 11/09/24 21:00 11/13/24 08:37 Guaifenesin 12 Hr 600 Mg Tabcr PO 11/16/24 20:59 1,200 mg Q12HR MASTER Administration Dextrose 1,000 mls @ 100 mls/hr 11/09/24 01:01 Dextrose 5% 1,000 Ml IVPB PRN PRN Hypoglycemia Protocol Insulin Aspart 2 - 5 units 11/09/24 08:00 11/13/24 08:40 Insulin Aspart (*Bkc) 100 Units/Ml SUB-Q 2 units TIDWM MASTER Administration Protocol Insulin Aspart 1 - 2 units 11/09/24 21:00 11/12/24 20:46 Insulin Aspart (*Bkc) 100 Units/Ml SUB-Q 1 units HS MASTER Administration Protocol Metolazone 2.5 mg 11/13/24 08:30 11/13/24 08:37 Metolazone 2.5 Mg Tablet PO 2.5 mg DAILY@0830 [facility] Administration Metoprolol Succinate 200 mg 11/09/24 09:00 11/13/24 08:37 Metoprolol Succinate Ext Rel 100 Mg Tabcr PO 200 mg DAILY [facility] Administration Morphine Sulfate 2 mg 11/09/24 01:03 11/10/24 03:37 Morphine Sulfate (*Crx) 2 Mg/Ml Inj IV PUSH 2 mg Q4H PRN Administration Pain Rated 7-10 Polyethylene Glycol 17 gm 11/10/24 09:55 11/13/24 08:41 Polyethylene Glycol 3350 17 Gm Powd.Pack PO [facility] [place] Potassium Chloride 40 meq 11/13/24 12:00 Potassium Chloride 20 Meq Er Tablet PO 11/13/24 12:01 ONCE ONE Spironolactone 25 mg 11/12/24 09:00 11/13/24 08:37 Spironolactone 25 Mg Tablet PO 25 mg QAM [facility] Administration Tramadol HCl 25 mg 11/09/24 01:03 11/10/24 08:13 Tramadol Hcl (*Crx) 25 Mg Tablet PO 25 mg Q4H PRN Administration Pain Rated 4-6 Warfarin Sodium 5 mg 11/10/24 17:00 11/12/24 17:39 Warfarin (*Pbkc) 5 Mg Tablet PO 5 mg DAILY@1700 [facility] Administration Warfarin Sodium 3 mg 11/13/24 17:00 Warfarin (*Pbkc) 3 Mg Tablet PO DAILY@1700 [facility] Radiology Results: ITS Impressions Chest CTA 11/09/24 11:12 Impression: No evidence of pulmonary embolus, aortic dissection, or aortic aneurysm. Minimal pericardial effusion. Small to moderate left pleural effusion and small right pleural effusion, with bilateral atelectatic change, left worse than right. Venous Doppler Study 11/09/24 16:04 IMPRESSION: 1. No deep venous thrombosis within the right lower extremity. 2.. Venous thrombosis of the posterior tibial and peroneal veins in the left lower extremity. Pelvis Ultrasound 11/09/24 16:35 IMPRESSION: Heterogeneous endometrial tissue which may indicate endometrial masses ,debris or hematoma. Further evaluation advised. Otherwise, normal pelvic ultrasound. Chest X-Ray 11/11/24 06:07 Impression: Moderate bilateral pleural effusions are significantly increased, with moderate pulmonary edema and bibasilar atelectatic change. Labs Labs: Laboratory Results - last 24 hr 11/12/24 11/12/24 11/12/24 11:44 15:17 19:36 WBC RBC Hgb Hct MCV MCH MCHC RDW Plt Count MPV Immature Gran % (Auto) Neut % (Auto) Lymph % (Auto) [place] % (Auto) Eos % (Auto) Baso % (Auto) Lymph # (Auto) [place] # (Auto) Eos # (Auto) Baso # (Auto) Abs Immat Gran (auto) Absolute Neuts (auto) Absolute Nucleated RBC Nucleated RBC % PT INR Sodium Potassium Chloride Carbon Dioxide Anion Gap BUN Creatinine Estim Creat Clear Calc Estimated GFR Glucose POC Capillary Glucose 253 H 242 H 266 H Calcium Magnesium Total Bilirubin AST ALT Alkaline Phosphatase Total Protein Albumin 11/13/24 11/13/24 03:48 07:27 WBC 6.8 RBC 4.11 L Hgb 12.2 Hct 37.7 MCV 91.7 MCH 29.7 MCHC 32.4 RDW 14.2 Plt Count 287 MPV 11.0 H Immature Gran % (Auto) 2.5 H Neut % (Auto) 67.5 Lymph % (Auto) 15.2 L [place] % (Auto) 11.7 H Eos % (Auto) 2.2 Baso % (Auto) 0.9 Lymph # (Auto) 1.03 [place] # (Auto) 0.8 H Eos # (Auto) 0.2 Baso # (Auto) 0.1 Abs Immat Gran (auto) 0.17 H Absolute Neuts (auto) 4.6 Absolute Nucleated RBC 0.000 Nucleated RBC % 0.0 PT 17.8 H INR 1.4 Sodium 134 L Potassium 3.3 L Chloride 99 Carbon Dioxide 27 Anion Gap 8 BUN 22 H Creatinine 0.95 Estim Creat Clear Calc 61 Estimated GFR 58 L Glucose 169 H POC Capillary Glucose 211 H Calcium 8.4 Magnesium 2.4 H Total Bilirubin 0.8 AST 75 H ALT 76 H Alkaline Phosphatase 146 H Total Protein 7.0 Albumin 3.4 L Quality VTE Prophylaxis VTE prophylaxis: pharmacologic ordered
[2024-11-13 11:16] LABS: Glucose Point of Care 247 mg/dl (65-105)
--- NOTE | 2024-11-13 11:32 | P.PNCA_ITS ---
Progress Note: A&P Assessment and Plan (1) CHF (congestive heart failure): Code(s): I50.9 - Heart failure, unspecified Status: Acute Assessment and Plan: Acute on chronic diastolic heart failure. Her regular dairy laboratory technician is Dr. Mason with [facility]. Restrict fluid to 1.5 l/day. On Lasix 40 mg IV BID, Metolazone 2.5 mg daily and Spironolactone 25 mg daily. (2) Deep vein thrombosis (DVT) of left lower extremity: Code(s): I82.402 - Acute embolism and thrombosis of unspecified deep veins of left lower extremity Status: Acute Assessment and Plan: On Lovenox. Was on Warfarin until a month ago it was changed to Eliquis. She is being restarted on Warfarin. (3) Afib: Qualifiers: Atrial fibrillation type: unspecified chronic Qualified Code(s): I48.20 - Chronic atrial fibrillation, unspecified Code(s): I48.91 - Unspecified atrial fibrillation Status: Chronic Assessment and Plan: Rate is controlled on Metoprolol and Digoxin. Anticoagulate will be covered with DVT treatment. (4) Hypertension: Code(s): I10 - Essential (primary) hypertension Status: Chronic Assessment and Plan: Stable. (5) COPD (chronic obstructive pulmonary disease): Code(s): J44.9 - Chronic obstructive pulmonary disease, unspecified Status: Acute Assessment and Plan: On CPAP and Nebs and antibiotics. Subjective Date/time seen: 11/13/24 11:32 Interval history: Reports sob improved. No chest pains. Exam Const: General: cooperative, healthy appearing and comfortable Orientation/consciousness: oriented to person, oriented to place and oriented to time Resp: Auscultation: clear to auscultation bilaterally, no crackles, no rales, no rhonchi and no wheezes Cardio: Rate: regular rate Rhythm: abnormal rhythm Heart sounds: no murmurs Peripheral pulses: dorsalis pedis present Neuro: General: oriented to person, oriented to place and oriented to time Extrem: Right lower extremity: edema Left lower extremity: edema Other: Mod edema of both legs Objective Data Vital Signs Vital Signs: Vital Signs - 24 hr 11/12/24 12:00 11/12/24 12:00 11/12/24 12:08 Temperature 98.0 F Pulse Rate 99 84 Respiratory Rate 22 H Blood Pressure 146/72 H Pulse Oximetry 96 92 Oxygen Delivery High Flow Therapy with Na Oxygen Flow Rate 40 Fraction of Inspired Oxygen 47 11/12/24 13:27 11/12/24 13:27 11/12/24 13:35 Temperature Pulse Rate 92 93 Respiratory Rate 22 H 22 H Blood Pressure Pulse Oximetry 92 Oxygen Delivery High Flow Therapy with Na Oxygen Flow Rate 40 Fraction of Inspired Oxygen 40 11/12/24 15:58 11/12/24 16:00 11/12/24 16:00 Temperature 98.1 F Pulse Rate 78 88 Respiratory Rate 20 Blood Pressure 135/62 Pulse Oximetry 95 96 Oxygen Delivery High Flow Therapy with Na Oxygen Flow Rate 40 Fraction of Inspired Oxygen 47 11/12/24 18:00 11/12/24 19:52 11/12/24 20:00 Temperature 98.2 F Pulse Rate 79 82 90 Respiratory Rate 18 18 Blood Pressure 134/58 L Pulse Oximetry 99 Oxygen Delivery Oxygen Flow Rate Fraction of Inspired Oxygen 11/12/24 20:00 11/12/24 20:00 11/12/24 20:04 Temperature Pulse Rate 94 82 82 Respiratory Rate 18 18 Blood Pressure Pulse Oximetry 97 Oxygen Delivery High Flow Therapy with Na Oxygen Flow Rate 40 Fraction of Inspired Oxygen 40 11/12/24 20:12 11/12/24 21:32 11/13/24 00:00 Temperature 98.2 F Pulse Rate 84 73 Respiratory Rate 19 Blood Pressure 121/71 Pulse Oximetry 97 95 Oxygen Delivery High Flow Therapy with Na Oxygen Flow Rate 40 Fraction of Inspired Oxygen 40 11/13/24 00:00 11/13/24 00:00 11/13/24 02:00 Temperature Pulse Rate 71 71 82 Respiratory Rate 19 Blood Pressure Pulse Oximetry 95 Oxygen Delivery High Flow Therapy with Na Oxygen Flow Rate 40 Fraction of Inspired Oxygen 40 11/13/24 04:00 11/13/24 04:00 11/13/24 04:00 Temperature 98.3 F Pulse Rate 77 79 79 Respiratory Rate 18 18 Blood Pressure 142/74 H Pulse Oximetry 95 95 Oxygen Delivery High Flow Therapy with Na Oxygen Flow Rate 40 Fraction of Inspired Oxygen 40 11/13/24 06:00 11/13/24 08:00 11/13/24 08:00 Temperature Pulse Rate 84 85 Respiratory Rate 18 Blood Pressure Pulse Oximetry 95 Oxygen Delivery High Flow Therapy with Na Oxygen Flow Rate 40 Fraction of Inspired Oxygen 40 11/13/24 08:00 11/13/24 08:00 11/13/24 08:00 Temperature 98.3 F Pulse Rate 63 96 Respiratory Rate 18 Blood Pressure 144/83 H Pulse Oximetry 97 96 Oxygen Delivery High Flow Nasal Cannula Oxygen Flow Rate 30 Fraction of Inspired Oxygen 30 11/13/24 08:11 11/13/24 08:40 11/13/24 09:28 Temperature Pulse Rate 95 Respiratory Rate 18 Blood Pressure Pulse Oximetry 97 96 Oxygen Delivery High Flow Therapy with Na High Flow Therapy with Na Oxygen Flow Rate 35 30 Fraction of Inspired Oxygen 40 30 11/13/24 09:38 11/13/24 10:00 Temperature Pulse Rate 85 Respiratory Rate Blood Pressure Pulse Oximetry 96 Oxygen Delivery High Flow Nasal Cannula Oxygen Flow Rate 3 Fraction of Inspired Oxygen Intake/Output Intake/Output: Intake & Output 11/10/24 11/11/24 11/12/24 11/13/24 23:59 23:59 23:59 23:59 Intake Total 960 2280 1620 240 Output Total 750 1500 553 400 Balance 519 740 4237 -160 Meds/Results Medications: Active Medications Generic Name Dose Route Start Last Admin Trade Name Freq PRN Reason Stop Dose Admin Acetaminophen 650 mg 11/09/24 01:03 Acetaminophen 325 Mg Tablet PO Q4H PRN Mild Pain (1-3) or Fever Albuterol/Ipratropium 3 ml 11/12/24 14:00 11/13/24 07:59 Ipratropium 0.5 Mg/Albuterol Sulfate 2.5 Mg Ampul.Neb 3 Ml INHALATION 3 ml TIDRT MASTER Administration Amlodipine Besylate 10 mg 11/10/24 09:00 11/13/24 08:37 Amlodipine Besylate 10 Mg Tablet PO 10 mg DAILY MASTER Administration Dextrose 12.5 gm 11/09/24 01:01 Dextrose 50% 25 Gm/50 Ml Syringe IV PUSH PRN PRN Hypoglycemia Protocol Diclofenac Sodium 1 applic 11/09/24 17:00 11/13/24 08:41 Diclofenac Sodium 1% 100 Gm Gel (*Bkc) TOPICAL 1 applic TID MASTER Administration Digoxin 125 mcg 11/09/24 09:00 11/13/24 08:37 Digoxin Tab 125 Mcg Tablet PO 125 mcg DAILY MASTER Administration Docusate Sodium 100 mg 11/10/24 09:55 11/12/24 09:34 Docusate Sodium 100 Mg Capsule PO 100 mg Q12H PRN Administration Constipation Enoxaparin Sodium 120 mg 11/09/24 17:00 11/13/24 06:07 Enoxaparin 120 Mg/0.8 Ml Syringe SUB-Q 120 mg Q12H MASTER Administration Furosemide 40 mg 11/09/24 09:00 11/13/24 08:40 Furosemide Inj 40 Mg/4 Ml Vial IV PUSH 40 mg BID MASTER Administration Gabapentin 300 mg 11/09/24 09:00 11/13/24 08:37 Gabapentin 300 Mg Capsule BY MOUTH 300 mg TID MASTER Administration Glucose 15 gm 11/09/24 01:01 Glucose Oral Gel 15 Gm Of Glucse In 37.5 Gm Tube PO PRN PRN Hypoglycemia Protocol Guaifenesin 1,200 mg 11/09/24 21:00 11/13/24 08:37 Guaifenesin 12 Hr 600 Mg Tabcr PO 11/16/24 20:59 1,200 mg Q12HR MASTER Administration Dextrose 1,000 mls @ 100 mls/hr 11/09/24 01:01 Dextrose 5% 1,000 Ml IVPB PRN PRN Hypoglycemia Protocol Insulin Aspart 2 - 5 units 11/09/24 08:00 11/13/24 08:40 Insulin Aspart (*Bkc) 100 Units/Ml SUB-Q 2 units TIDWM MASTER Administration Protocol Insulin Aspart 1 - 2 units 11/09/24 21:00 11/12/24 20:46 Insulin Aspart (*Bkc) 100 Units/Ml SUB-Q 1 units HS MASTER Administration Protocol Metolazone 2.5 mg 11/13/24 08:30 11/13/24 08:37 Metolazone 2.5 Mg Tablet PO 2.5 mg DAILY@0830 MASTER Administration Metoprolol Succinate 200 mg 11/09/24 09:00 11/13/24 08:37 Metoprolol Succinate Ext Rel 100 Mg Tabcr PO 200 mg DAILY MASTER Administration Morphine Sulfate 2 mg 11/09/24 01:03 11/10/24 03:37 Morphine Sulfate (*Crx) 2 Mg/Ml Inj IV PUSH 2 mg Q4H PRN Administration Pain Rated 7-10 Polyethylene Glycol 17 gm 11/10/24 09:55 11/13/24 08:41 Polyethylene Glycol 3350 17 Gm Powd.Pack PO Not Given QAM [facility] Potassium Chloride 40 meq 11/13/24 12:00 Potassium Chloride 20 Meq Er Tablet PO 11/13/24 12:01 ONCE ONE Spironolactone 25 mg 11/12/24 09:00 11/13/24 08:37 Spironolactone 25 Mg Tablet PO 25 mg QAM MASTER Administration Tramadol HCl 25 mg 11/09/24 01:03 11/10/24 08:13 Tramadol Hcl (*Crx) 25 Mg Tablet PO 25 mg Q4H PRN Administration Pain Rated 4-6 Warfarin Sodium 5 mg 11/10/24 17:00 11/12/24 17:39 Warfarin (*Pbkc) 5 Mg Tablet PO 5 mg DAILY@1700 MASTER Administration Warfarin Sodium 3 mg 11/13/24 17:00 Warfarin (*Pbkc) 3 Mg Tablet PO DAILY@1700 [facility] Radiology Results: ITS Impressions Chest CTA 11/09/24 11:12 Impression: No evidence of pulmonary embolus, aortic dissection, or aortic aneurysm. Minimal pericardial effusion. Small to moderate left pleural effusion and small right pleural effusion, with bilateral atelectatic change, left worse than right. Venous Doppler Study 11/09/24 16:04 IMPRESSION: 1. No deep venous thrombosis within the right lower extremity. 2.. Venous thrombosis of the posterior tibial and peroneal veins in the left lower extremity. Pelvis Ultrasound 11/09/24 16:35 IMPRESSION: Heterogeneous endometrial tissue which may indicate endometrial masses ,debris or hematoma. Further evaluation advised. Otherwise, normal pelvic ultrasound. Chest X-Ray 11/11/24 06:07 Impression: Moderate bilateral pleural effusions are significantly increased, with moderate pulmonary edema and bibasilar atelectatic change. Labs Labs: Laboratory Results - last 24 hr 11/12/24 11/12/24 11/12/24 11:44 15:17 19:36 WBC RBC Hgb Hct MCV MCH MCHC RDW Plt Count MPV Immature Gran % (Auto) Neut % (Auto) Lymph % (Auto) Elbert % (Auto) Eos % (Auto) Baso % (Auto) Lymph # (Auto) Elbert # (Auto) Eos # (Auto) Baso # (Auto) Abs Immat Gran (auto) Absolute Neuts (auto) Absolute Nucleated RBC Nucleated RBC % PT INR Sodium Potassium Chloride Carbon Dioxide Anion Gap BUN Creatinine Estim Creat Clear Calc Estimated GFR Glucose POC Capillary Glucose 253 H 242 H 266 H Calcium Magnesium Total Bilirubin AST ALT Alkaline Phosphatase Total Protein Albumin 11/13/24 11/13/24 11/13/24 03:48 07:27 11:14 WBC 6.8 RBC 4.11 L Hgb 12.2 Hct 37.7 MCV 91.7 MCH 29.7 MCHC 32.4 RDW 14.2 Plt Count 287 MPV 11.0 H Immature Gran % (Auto) 2.5 H Neut % (Auto) 67.5 Lymph % (Auto) 15.2 L Elbert % (Auto) 11.7 H Eos % (Auto) 2.2 Baso % (Auto) 0.9 Lymph # (Auto) 1.03 Elbert # (Auto) 0.8 H Eos # (Auto) 0.2 Baso # (Auto) 0.1 Abs Immat Gran (auto) 0.17 H Absolute Neuts (auto) 4.6 Absolute Nucleated RBC 0.000 Nucleated RBC % 0.0 PT 17.8 H INR 1.4 Sodium 134 L Potassium 3.3 L Chloride 99 Carbon Dioxide 27 Anion Gap 8 BUN 22 H Creatinine 0.95 Estim Creat Clear Calc 61 Estimated GFR 58 L Glucose 169 H POC Capillary Glucose 211 H 247 H Calcium 8.4 Magnesium 2.4 H Total Bilirubin 0.8 AST 75 H ALT 76 H Alkaline Phosphatase 146 H Total Protein 7.0 Albumin 3.4 L
[2024-11-13 16:52] LABS: Glucose Point of Care 225 mg/dl (65-105)
[2024-11-13] MEDS: WARFARIN (*PBKC) 3 MG TABLET PO (17:35)
[2024-11-13] MEDS: WARFARIN (*PBKC) 5 MG TABLET PO (17:35)
[2024-11-13 21:14] LABS: Glucose Point of Care 236 mg/dl (65-105)
[2024-11-14] VITALS (20 sets, daily range): BP systolic 120–137; BP diastolic 67–93; PULSE 51–93; RESP 18–20; TEMP 36.2–36.6; O2SAT 91–100
[2024-11-14 04:59] LABS: Basophils Absolute Auto 0.1 K/mm3 (0.0-0.1); Basophils Percent Auto 1.1 % (0.2-1.2); Eosinophils Absolute Auto 0.2 K/mm3 (0-0.3); Eosinophils Percent Auto 2.6 % (0-4.4); Hematocrit 40.6 % (37.0-47.0); Hemoglobin 13.5 g/dL (12.0-15.0); Immature Granulocyte Absolute 0.36 K/mm3 (0.00-0.031); Immature Granulocyte Percent A 5.2 % (0-0.5); Lymphocytes Absolute Auto 1.14 K/mm3 (0.9-3.2); Lymphocytes Percent Auto 16.3 % (18.3-44.2); Mean Corpuscular HGB Conc 33.3 g/dl (32-36); Mean Corpuscular Hemoglobin 30.3 pg (26-34); Mean Platelet Volume 10.6 fl (7.4-10.4); Monocytes Absolute Auto 0.7 K/mm3 (0.1-0.6); Monocytes Percent Auto 10.5 % (2.6-8.5); Neutrophils Absolute Auto 4.5 K/mm3 (1.3-6.7); Neutrophils Percent Auto 64.3 % (45.5-73.1); Platelet Count Result 310 k/mm3 (150-375); Red Blood Count 4.46 M/mm3 (4.2-5.4)
[2024-11-14 05:09] LABS: INR 1.4; Prothrombin Time 17.4 Seconds (11.1-14.7)
[2024-11-14 05:16] LABS: Alanine Aminotransferase 87 U/L (6-35); Albumin Level 3.6 g/dL (3.5-5.1); Alkaline Phosphatase 148 U/L (38-126); Anion Gap 9 mmol/L (4-12); Aspartate Amino Transferase 73 U/L (14-36); Bilirubin,Total 0.5 mg/dL (0.2-1.3); Blood Urea Nitrogen 21 mg/dL (7-17); Calcium 8.8 mg/dL (8.4-10.2); Carbon Dioxide 33 mmol/L (22-30); Chloride 92 mmol/L (98-107); Estimated CRCL calculation 65 ml/min; Estimated Glomerular Filt Rate > 60; Glucose 174 mg/dL (65-110); Magnesium 2.1 mg/dL (1.6-2.3); Potassium 3.5 mmol/L (3.4-5.0); Sodium 134 mmol/L (137-145)
[2024-11-14 05:28] LABS: Anisocytosis 1+; Large Platelets Present; Platelet Clumps Present; Platelet Estimate Adequate (Adequate); Schistocytes None Seen
[2024-11-14] MEDS: ENOXAPARIN 120 MG/0.8 ML SYRINGE SUB-Q ×2 (05:45→17:02)
[2024-11-14] MEDS: IPRATROPIUM 0.5 MG/ALBUTEROL SULFATE 2.5 MG AMPUL.NEB 3 ML INHALATION (07:44)
--- NOTE | 2024-11-14 07:57 | PM.PNCARD ---
Progress Note: A&P Assessment and Plan (1) CHF (congestive heart failure): Code(s): I50.9 - Heart failure, unspecified Status: Acute Assessment and Plan: Acute on chronic diastolic heart failure. Her regular small engine trainer is Dr. Mason with [facility]. Restrict fluid to 1.5 l/day. On Lasix 40 mg IV BID, Metolazone 2.5 mg daily and Spironolactone 25 mg daily. Start Jardiance 10 mg daily to also facilitate diuresis. (2) Deep vein thrombosis (DVT) of left lower extremity: Code(s): I82.402 - Acute embolism and thrombosis of unspecified deep veins of left lower extremity Status: Acute Assessment and Plan: On Lovenox. Was on Warfarin until a month ago it was changed to Eliquis. She is being restarted on Warfarin. (3) Afib: Qualifiers: Atrial fibrillation type: unspecified chronic Qualified Code(s): I48.20 - Chronic atrial fibrillation, unspecified Code(s): I48.91 - Unspecified atrial fibrillation Status: Chronic Assessment and Plan: Rate is controlled on Metoprolol and Digoxin. Anticoagulate will be covered with DVT treatment. (4) Hypertension: Code(s): I10 - Essential (primary) hypertension Status: Chronic Assessment and Plan: Stable. (5) COPD (chronic obstructive pulmonary disease): Code(s): J44.9 - Chronic obstructive pulmonary disease, unspecified Status: Acute Assessment and Plan: On CPAP and Nebs and antibiotics. Subjective Date/time seen: 11/14/24 07:57 Interval history: Reports sob improved. No chest pains. She would like to go home. Exam Const: General: cooperative, healthy appearing and comfortable Orientation/consciousness: oriented to person, oriented to place and oriented to time Resp: Auscultation: crackles, no rales, no rhonchi and no wheezes Cardio: Rate: regular rate Rhythm: abnormal rhythm Heart sounds: no murmurs Peripheral pulses: dorsalis pedis present Neuro: General: oriented to person, oriented to place and oriented to time Extrem: Right lower extremity: edema Left lower extremity: edema Other: Mod edema of both legs Objective Data Vital Signs Vital Signs: Vital Signs - 24 hr 11/13/24 08:00 11/13/24 08:00 11/13/24 08:00 Temperature 98.3 F Pulse Rate 85 63 Respiratory Rate 18 18 Blood Pressure 144/83 H Pulse Oximetry 95 97 Oxygen Delivery High Flow Therapy with Na Oxygen Flow Rate 40 Fraction of Inspired Oxygen 40 11/13/24 08:00 11/13/24 08:00 11/13/24 08:11 Temperature Pulse Rate 96 95 Respiratory Rate 18 Blood Pressure Pulse Oximetry 96 Oxygen Delivery High Flow Therapy with Na Oxygen Flow Rate 30 Fraction of Inspired Oxygen 30 11/13/24 08:40 11/13/24 09:28 11/13/24 09:38 Temperature Pulse Rate Respiratory Rate Blood Pressure Pulse Oximetry 97 96 96 Oxygen Delivery High Flow Therapy with Na High Flow Therapy with Na High Flow Nasal Cannula Oxygen Flow Rate 35 30 3 Fraction of Inspired Oxygen 40 30 11/13/24 10:00 11/13/24 12:00 11/13/24 12:00 Temperature 98.7 F Pulse Rate 85 86 90 Respiratory Rate 14 Blood Pressure 129/89 Pulse Oximetry 97 Oxygen Delivery Oxygen Flow Rate Fraction of Inspired Oxygen 11/13/24 12:00 11/13/24 14:00 11/13/24 14:02 Temperature Pulse Rate 96 80 Respiratory Rate 20 Blood Pressure Pulse Oximetry 97 Oxygen Delivery High Flow Nasal Cannula Oxygen Flow Rate 3 Fraction of Inspired Oxygen 11/13/24 14:12 11/13/24 15:38 11/13/24 16:00 Temperature 98.8 F Pulse Rate 82 87 Respiratory Rate 20 14 Blood Pressure 152/77 H Pulse Oximetry 100 97 Oxygen Delivery High Flow Nasal Cannula Oxygen Flow Rate 3 Fraction of Inspired Oxygen 11/13/24 16:00 11/13/24 18:00 11/13/24 19:42 Temperature 98.0 F Pulse Rate 85 78 79 Respiratory Rate 17 Blood Pressure 153/84 H Pulse Oximetry 96 Oxygen Delivery Oxygen Flow Rate Fraction of Inspired Oxygen 11/13/24 19:59 11/13/24 19:59 11/13/24 20:00 Temperature Pulse Rate 85 85 81 Respiratory Rate 18 16 Blood Pressure Pulse Oximetry 96 Oxygen Delivery High Flow Nasal Cannula Oxygen Flow Rate 3 Fraction of Inspired Oxygen 11/13/24 20:08 11/13/24 22:00 11/13/24 23:38 Temperature 97.6 F Pulse Rate 88 80 70 Respiratory Rate 18 18 Blood Pressure 129/77 Pulse Oximetry 96 Oxygen Delivery Oxygen Flow Rate Fraction of Inspired Oxygen 11/14/24 00:00 11/14/24 02:00 11/14/24 03:51 Temperature 97.2 F L Pulse Rate 69 74 75 Respiratory Rate 18 Blood Pressure 124/77 Pulse Oximetry 93 Oxygen Delivery Oxygen Flow Rate Fraction of Inspired Oxygen 11/14/24 04:00 11/14/24 06:00 11/14/24 07:44 Temperature Pulse Rate 77 86 Respiratory Rate Blood Pressure Pulse Oximetry 96 Oxygen Delivery High Flow Nasal Cannula Oxygen Flow Rate 3 Fraction of Inspired Oxygen 32 11/14/24 07:44 11/14/24 07:51 Temperature Pulse Rate 82 83 Respiratory Rate 20 20 Blood Pressure Pulse Oximetry Oxygen Delivery Oxygen Flow Rate Fraction of Inspired Oxygen Intake/Output Intake/Output: Intake & Output 11/11/24 11/12/24 11/13/24 11/14/24 23:59 23:59 23:59 23:59 Intake Total 2280 1620 1390 Output Total 1500 553 400 Balance 780 1067 990 Meds/Results Medications: Active Medications Generic Name Dose Route Start Last Admin Trade Name Freq PRN Reason Stop Dose Admin Acetaminophen 650 mg 11/09/24 01:03 Acetaminophen 325 Mg Tablet PO Q4H PRN Mild Pain (1-3) or Fever Albuterol/Ipratropium 3 ml 11/12/24 14:00 11/14/24 07:44 Ipratropium 0.5 Mg/Albuterol Sulfate 2.5 Mg Ampul.Neb 3 Ml INHALATION 3 ml TIDRT MASTER Administration Amlodipine Besylate 10 mg 11/10/24 09:00 11/13/24 08:37 Amlodipine Besylate 10 Mg Tablet PO 10 mg DAILY MASTER Administration Dextrose 12.5 gm 11/09/24 01:01 Dextrose 50% 25 Gm/50 Ml Syringe IV PUSH PRN PRN Hypoglycemia Protocol Diclofenac Sodium 1 applic 11/09/24 17:00 11/13/24 21:10 Diclofenac Sodium 1% 100 Gm Gel (*Bkc) TOPICAL 1 applic TID MASTER Administration Digoxin 125 mcg 11/09/24 09:00 11/13/24 08:37 Digoxin Tab 125 Mcg Tablet PO 125 mcg DAILY MASTER Administration Docusate Sodium 100 mg 11/10/24 09:55 11/12/24 09:34 Docusate Sodium 100 Mg Capsule PO 100 mg Q12H PRN Administration Constipation Enoxaparin Sodium 120 mg 11/09/24 17:00 11/14/24 05:45 Enoxaparin 120 Mg/0.8 Ml Syringe SUB-Q 120 mg Q12H MASTER Administration Furosemide 40 mg 11/09/24 09:00 11/13/24 17:35 Furosemide Inj 40 Mg/4 Ml Vial IV PUSH 40 mg BID MASTER Administration Gabapentin 300 mg 11/09/24 09:00 11/13/24 17:35 Gabapentin 300 Mg Capsule BY MOUTH 300 mg TID MASTER Administration Glucose 15 gm 11/09/24 01:01 Glucose Oral Gel 15 Gm Of Glucse In 37.5 Gm Tube PO PRN PRN Hypoglycemia Protocol Guaifenesin 1,200 mg 11/09/24 21:00 11/13/24 21:07 Guaifenesin 12 Hr 600 Mg Tabcr PO 11/16/24 20:59 1,200 mg Q12HR MASTER Administration Dextrose 1,000 mls @ 100 mls/hr 11/09/24 01:01 Dextrose 5% 1,000 Ml IVPB PRN PRN Hypoglycemia Protocol Insulin Aspart 2 - 5 units 11/09/24 08:00 11/13/24 17:35 Insulin Aspart (*Bkc) 100 Units/Ml SUB-Q 2 units TIDWM MASTER Administration Protocol Insulin Aspart 1 - 2 units 11/09/24 21:00 11/13/24 21:09 Insulin Aspart (*Bkc) 100 Units/Ml SUB-Q 1 units HS MASTER Administration Protocol Metolazone 2.5 mg 11/13/24 08:30 11/13/24 08:37 Metolazone 2.5 Mg Tablet PO 2.5 mg DAILY@0830 MASTER Administration Metoprolol Succinate 200 mg 11/09/24 09:00 11/13/24 08:37 Metoprolol Succinate Ext Rel 100 Mg Tabcr PO 200 mg DAILY MASTER Administration Morphine Sulfate 2 mg 11/09/24 01:03 11/10/24 03:37 Morphine Sulfate (*Crx) 2 Mg/Ml Inj IV PUSH 2 mg Q4H PRN Administration Pain Rated 7-10 Polyethylene Glycol 17 gm 11/10/24 09:55 11/13/24 08:41 Polyethylene Glycol 3350 17 Gm Powd.Pack PO Not Given QAM [facility] Spironolactone 25 mg 11/12/24 09:00 11/13/24 08:37 Spironolactone 25 Mg Tablet PO 25 mg QAM MASTER Administration Tramadol HCl 25 mg 11/09/24 01:03 11/10/24 08:13 Tramadol Hcl (*Crx) 25 Mg Tablet PO 25 mg Q4H PRN Administration Pain Rated 4-6 Warfarin Sodium 5 mg 11/10/24 17:00 11/13/24 17:35 Warfarin (*Pbkc) 5 Mg Tablet PO 5 mg DAILY@1700 MASTER Administration Warfarin Sodium 3 mg 11/13/24 17:00 11/13/24 17:35 Warfarin (*Pbkc) 3 Mg Tablet PO 3 mg DAILY@1700 MASTER Administration Radiology Results: ITS Impressions Chest CTA 11/09/24 11:12 Impression: No evidence of pulmonary embolus, aortic dissection, or aortic aneurysm. Minimal pericardial effusion. Small to moderate left pleural effusion and small right pleural effusion, with bilateral atelectatic change, left worse than right. Venous Doppler Study 11/09/24 16:04 IMPRESSION: 1. No deep venous thrombosis within the right lower extremity. 2.. Venous thrombosis of the posterior tibial and peroneal veins in the left lower extremity. Pelvis Ultrasound 11/09/24 16:35 IMPRESSION: Heterogeneous endometrial tissue which may indicate endometrial masses ,debris or hematoma. Further evaluation advised. Otherwise, normal pelvic ultrasound. Chest X-Ray 11/11/24 06:07 Impression: Moderate bilateral pleural effusions are significantly increased, with moderate pulmonary edema and bibasilar atelectatic change. Labs Labs: Laboratory Results - last 24 hr 11/13/24 11/13/24 11/13/24 11:14 16:50 21:06 WBC RBC Hgb Hct MCV MCH MCHC RDW Plt Count MPV Immature Gran % (Auto) Neut % (Auto) Lymph % (Auto) Dickenson % (Auto) Eos % (Auto) Baso % (Auto) Lymph # (Auto) Dickenson # (Auto) Eos # (Auto) Baso # (Auto) Abs Immat Gran (auto) Absolute Neuts (auto) Absolute Nucleated RBC Band Neutrophils % Nucleated RBC % Platelet Estimate Clumped Platelets Large Platelets Anisocytosis Schistocytes PT INR Sodium Potassium Chloride Carbon Dioxide Anion Gap BUN Creatinine Estim Creat Clear Calc Estimated GFR Glucose POC Capillary Glucose 247 H 225 H 236 H Calcium Magnesium Total Bilirubin AST ALT Alkaline Phosphatase Total Protein Albumin 11/14/24 04:32 WBC 7.0 RBC 4.46 Hgb 13.5 Hct 40.6 MCV 91.0 MCH 30.3 MCHC 33.3 RDW 14.0 Plt Count 310 MPV 10.6 H Immature Gran % (Auto) 5.2 H Neut % (Auto) 64.3 Lymph % (Auto) 16.3 L Dickenson % (Auto) 10.5 H Eos % (Auto) 2.6 Baso % (Auto) 1.1 Lymph # (Auto) 1.14 Dickenson # (Auto) 0.7 H Eos # (Auto) 0.2 Baso # (Auto) 0.1 Abs Immat Gran (auto) 0.36 H Absolute Neuts (auto) 4.5 Absolute Nucleated RBC 0.000 Band Neutrophils % Not Reportable Nucleated RBC % 0.0 Platelet Estimate Adequate Clumped Platelets Present Large Platelets Present Anisocytosis 1+ Schistocytes None seen PT 17.4 H INR 1.4 Sodium 134 L Potassium 3.5 Chloride 92 L Carbon Dioxide 33 H Anion Gap 9 BUN 21 H Creatinine 0.90 Estim Creat Clear Calc 65 Estimated GFR > 60 Glucose 174 H POC Capillary Glucose Calcium 8.8 Magnesium 2.1 Total Bilirubin 0.5 AST 73 H ALT 87 H Alkaline Phosphatase 148 H Total Protein 7.0 Albumin 3.6
[2024-11-14 08:16] LABS: NT Pro B Type Natriuretic Pept 1370 pg/mL (19.9-100)
[2024-11-14] MEDS: amLODIPine BESYLATE 10 MG TABLET PO (08:42)
[2024-11-14] MEDS: GABAPENTIN 300 MG CAPSULE BY MOUTH ×3 (08:42→17:02)
[2024-11-14] MEDS: metOLazone 2.5 MG TABLET PO (08:42)
[2024-11-14] MEDS: FUROSEMIDE INJ 40 MG/4 ML VIAL IV PUSH ×2 (08:42→17:02)
[2024-11-14] MEDS: EMPAGLIFLOZIN 10 MG TABLET PO (08:42)
[2024-11-14] MEDS: POTASSIUM CHLORIDE 20 MEQ ER TABLET 40 MEQ PO (08:42)
[2024-11-14] MEDS: guaiFENesin 12 HR 600 MG TABCR 1200 MG PO ×2 (08:42→20:23)
[2024-11-14] MEDS: DIGOXIN TAB 125 MCG TABLET PO (08:42)
[2024-11-14] MEDS: SPIRONOLACTONE 25 MG TABLET PO (08:42)
[2024-11-14] MEDS: METOPROLOL SUCCINATE EXT REL 100 MG TABCR 200 MG PO (08:43)
[2024-11-14 08:59] LABS: Glucose Point of Care 193 mg/dl (65-105)
--- NOTE | 2024-11-14 10:24 | P.PNIM_ITS ---
Progress Note: A&P Assessment and Plan (1) Heart failure with reduced ejection fraction: Code(s): I50.20 - Unspecified systolic (congestive) heart failure Status: Acute Assessment and Plan: * BNP 2285>1870>2410>1370 * 11/11/24 Patient had worsening shortness of breath overnight. Patient immediately placed on BiPAP. Improved symptomatology. She has significant wet crackles diffusely. No wheezing, no stridor. Stat chest x-ray demonstrates severe pulmonary edema. Lower extremities still with 2+ pitting edema bilaterally below the knees. Daily weights and urine output unclear per the nursing team as she has been going in her depends. ABG pCO2 43.8, pH 7.413. Given Lasix 80 mg IV x1. * Echocardiogram: Summary 1. Complete two-dimensional, color flow and Doppler transthoracic echocardiogram is performed. 2. Left ventricular chamber dimension is normal. 3. Left ventricular systolic function is normal, estimated at 60-65%. 4. The left ventricular diastolic function is abnormal. 5. E/e' 16 is elevated. 6. Atrial fibrillation. 7. Left atrial chamber dimension is moderately enlarged. 8. Right atrial chamber dimension is mildly enlarged. 9. There is mild aortic valve sclerosis. 10. There is trace mitral valve regurgitation. 11. No pulmonary hypertension, estimated pulmonary arterial systolic pressure is 30 mmHg. 12. There is trivial pericardial effusion. * Furosemide 40 mg ivp BID. * Metolazone 2.5 mg PO at 8:30 am. * Spironolactone 25 mg PO qam. * Jardiance 10 mg PO daily added. * Daily weights. * Strict I&O's. * Fluid restriction 1500 ml. * Cardiology consult, appreciate recommendations. (2) Paroxysmal atrial fibrillation: Code(s): I48.0 - Paroxysmal atrial fibrillation Status: Chronic Assessment and Plan: * Patient was taking Eliquis 5 mg PO BID for one month, stopped on 11/09 and started back on Coumadin. LE dopplers positive for a DVT LLE. Switched on 11/09 to Enoxaprin 120 mg subq q 12 and increase Coumadin 7 mg PO daily. * Metoprolol Succinate 200 mg PO daily. (3) COPD (chronic obstructive pulmonary disease): Code(s): J44.9 - Chronic obstructive pulmonary disease, unspecified Status: Acute Assessment and Plan: * Antibiotics discontinued on 11/12/24. * Guaifenesin 1,200 mg PO BID. * Incentive Spirometer. * Ipratropium 0.5 mg Neb q 4 switched to Anoro Ellipta 1 pugg daily. * WBC improving from 15.7>14.1>13.4>8.8>7.4>6.8>7.0. * 11/09/24- ABG: pH 7.438, pC02 36.1, p02 59.9, 02 saturation 92.0. * Pulmonology consult, appreciate recommendations. (4) ZARAGOZA (dyspnea on exertion): Code(s): R06.09 - Other forms of dyspnea Status: Acute Assessment and Plan: * D dimer 1.70. Chest CTA negative. * LE dopplers:IMPRESSION: 1. No deep venous thrombosis within the right lower extremity. 2.. Venous thrombosis of the posterior tibial and peroneal veins in the left lower extremity. * Pulmonology consult, appreciate recommendations. * Better. Weaned to room air with Sa02 95%. * Apnea link tonight. (5) Deep vein thrombosis (DVT) of left lower extremity: Code(s): I82.402 - Acute embolism and thrombosis of unspecified deep veins of left lower extremity Status: Acute Assessment and Plan: * LE doppler: IMPRESSION: 1. No deep venous thrombosis within the right lower extremity. 2.. Venous thrombosis of the posterior tibial and peroneal veins in the left lower extremity. * Patient reported that she was previously on Coumadin. Patient switched to Eliquis a month ago. Patient reports compliance with Eliquis. * Stopped Eliquis on 11/09 and restarted Warfarin with Lovenox bridge. * Lovenox 120 mg subq q12. INR 1.4. Warfarin 8 mg PO daily. * Monitor PT/INR daily. (6) Abdominal pain: Code(s): R10.9 - Unspecified abdominal pain Status: Acute Assessment and Plan: * Chest Abdomen/pelvis showed: IMPRESSION: Small left-sided pleural effusion with adjacent compressive atelectasis. Small pericardial effusion. Global enlargement of the bilateral ovaries and uterus, abnormal for a patient of this age. Fatty infiltration of an enlarged liver. * Abdominal US: IMPRESSION: Heterogeneous endometrial tissue which may indicate endometrial masses ,debris or hematoma. Further evaluation advised. Otherwise, normal pelvic ultrasound. * [employer] consult, appreciate recommendations. * pelvis with and without contrast ordered for further evaluation. (7) DM2 (diabetes mellitus, type 2): Qualifiers: Diabetes mellitus complication status: with circulatory complication Diabetes mellitus complication detail: with other circulatory complications Code(s): E11.9 - Type 2 diabetes mellitus without complications Status: Chronic Assessment and Plan: * Accuchecks, SSI, and hypoglycemic protocol. * HgbA1C 9.1% on 08/30/24. (8) Hypokalemia: Code(s): E87.6 - Hypokalemia Status: Acute Assessment and Plan: * Potassium 3.5. * Patient given Potassium Chloride 40 meq q4 x 1. * Trend labs. Plan This is a 69-year-old female with a history of morbid obesity with BMI 48, heart failure with reduced ejection fraction and combined diastolic dysfunction, COPD, prior tobacco dependence, [id number] diabetes mellitus, CKD stage 3, gout, paroxysmal AFib on Eliquis, hypertension, hyperlipidemia she presented to [facility] on 11/08/2024 with complaint of neck pain which had been going on for about 3 days. She denied any prior trauma or surgery. However that pain resolved and she developed left upper quadrant pain. She also reported shortness of breath to the ER physician however upon arrival to [employer] [facility] she denied it albeit was in clear respiratory distress. She also admits to nausea but no vomiting. Her last bowel movement was about 2 days [employer] and she usually has bowel movements every 2-3 days, that is normal for her. She otherwise has not had any increase distension of her abdomen. She does not know if she has gained weight, she has swelling on her legs per reports that her usual. Evaluation at [facility] revealed atrial fibrillation rate controlled, tachypnea, blood pressure 119/75, saturating 93% on room air. WBC count 15.7, sodium 133, potassium 3.3, chloride 95, BUN 19, serum creatinine 1.50, glucose 428 than 339, lactic acid 2.7 then 3.1. She received a diuretic but did not urinate in response. Troponin 76.6>80.5>0.026. High limit of normal is 60.4. CRP 23, BNP 2285, EKG without any acute ischemia. A subsequent CT chest abdomen pelvis with contrast revealed a small left-sided pleural effusion with adjacent compressive atelectasis, small pericardial effusion, lobe enlargement of bilateral ovaries and uterus, fatty infiltration of an enlarged liver. She was subsequently transferred to [employer] [facility] for further evaluation and treatment. Subjective Date/time seen: 11/14/24 10:24 Interval history: Patient sitting up on side of bed with niece at bedside. Patient denies chest pain, palpitations, headache, dizziness, nausea, or vomiting. Patient reports resting well last night. Review of Systems Review of Systems: All systems reviewed & are unremarkable except as noted in HPI and below Exam Const: General: comfortable and no acute distress Resp: Effort & Inspection: normal respiratory effort Auscultation: crackles and diminished lung sounds Cardio: Rhythm: abnormal rhythm irregularly irregular (afib 92) GI: GI Palp: Yes Soft to palpation Auscultation: normal bowel sounds Neuro: Speech: normal speech Extrem: General: edema bilateral (2+) Psych: Mental Status: mental status grossly normal Affect: normal affect Objective Data Vital Signs Vital Signs: Vital Signs - 24 hr 11/13/24 12:00 11/13/24 12:00 11/13/24 12:00 Temperature 98.7 F Pulse Rate 86 90 Respiratory Rate 14 Blood Pressure 129/89 Pulse Oximetry 97 97 Oxygen Delivery High Flow Nasal Cannula Oxygen Flow Rate 3 Fraction of Inspired Oxygen 11/13/24 14:00 11/13/24 14:02 11/13/24 14:12 Temperature Pulse Rate 96 80 82 Respiratory Rate 20 20 Blood Pressure Pulse Oximetry Oxygen Delivery Oxygen Flow Rate Fraction of Inspired Oxygen 11/13/24 15:38 11/13/24 16:00 11/13/24 16:00 Temperature 98.8 F Pulse Rate 87 85 Respiratory Rate 14 Blood Pressure 152/77 H Pulse Oximetry 100 97 Oxygen Delivery High Flow Nasal Cannula Oxygen Flow Rate 3 Fraction of Inspired Oxygen 11/13/24 18:00 11/13/24 19:42 11/13/24 19:59 Temperature 98.0 F Pulse Rate 78 79 85 Respiratory Rate 17 18 Blood Pressure 153/84 H Pulse Oximetry 96 Oxygen Delivery Oxygen Flow Rate Fraction of Inspired Oxygen 11/13/24 19:59 11/13/24 20:00 11/13/24 20:08 Temperature Pulse Rate 85 81 88 Respiratory Rate 16 18 Blood Pressure Pulse Oximetry 96 Oxygen Delivery High Flow Nasal Cannula Oxygen Flow Rate 3 Fraction of Inspired Oxygen 11/13/24 22:00 11/13/24 23:38 11/14/24 00:00 Temperature 97.6 F Pulse Rate 80 70 69 Respiratory Rate 18 Blood Pressure 129/77 Pulse Oximetry 96 Oxygen Delivery Oxygen Flow Rate Fraction of Inspired Oxygen 11/14/24 02:00 11/14/24 03:51 11/14/24 04:00 Temperature 97.2 F L Pulse Rate 74 75 77 Respiratory Rate 18 Blood Pressure 124/77 Pulse Oximetry 93 Oxygen Delivery Oxygen Flow Rate Fraction of Inspired Oxygen 11/14/24 06:00 11/14/24 07:44 11/14/24 07:44 Temperature Pulse Rate 86 82 Respiratory Rate 20 Blood Pressure Pulse Oximetry 96 Oxygen Delivery High Flow Nasal Cannula Oxygen Flow Rate 3 Fraction of Inspired Oxygen 32 11/14/24 07:51 11/14/24 08:00 11/14/24 08:00 Temperature 98 F Pulse Rate 83 82 Respiratory Rate 20 20 Blood Pressure 134/85 Pulse Oximetry 100 95 Oxygen Delivery High Flow Nasal Cannula Oxygen Flow Rate 3 Fraction of Inspired Oxygen 11/14/24 08:00 11/14/24 08:42 11/14/24 08:43 Temperature Pulse Rate 86 82 82 Respiratory Rate Blood Pressure Pulse Oximetry Oxygen Delivery Oxygen Flow Rate Fraction of Inspired Oxygen 11/14/24 10:00 Temperature Pulse Rate 88 Respiratory Rate Blood Pressure Pulse Oximetry Oxygen Delivery Oxygen Flow Rate Fraction of Inspired Oxygen Intake/Output Intake/Output: Intake & Output 11/11/24 11/12/24 11/13/24 11/14/24 23:59 23:59 23:59 23:59 Intake Total 2280 1620 1390 Output Total 1500 553 400 Balance 780 1067 990 Meds/Results Medications: Active Medications Generic Name Dose Route Start Last Admin Trade Name Freq PRN Reason Stop Dose Admin Acetaminophen 650 mg 11/09/24 01:03 Acetaminophen 325 Mg Tablet PO Q4H PRN Mild Pain (1-3) or Fever Albuterol/Ipratropium 3 ml 11/12/24 14:00 11/14/24 07:44 Ipratropium 0.5 Mg/Albuterol Sulfate 2.5 Mg Ampul.Neb 3 Ml INHALATION 3 ml TIDRT MASTER Administration Amlodipine Besylate 10 mg 11/10/24 09:00 11/14/24 08:42 Amlodipine Besylate 10 Mg Tablet PO 10 mg DAILY MASTER Administration Dextrose 12.5 gm 11/09/24 01:01 Dextrose 50% 25 Gm/50 Ml Syringe IV PUSH PRN PRN Hypoglycemia Protocol Diclofenac Sodium 1 applic 11/09/24 17:00 11/14/24 08:43 Diclofenac Sodium 1% 100 Gm Gel (*Bkc) TOPICAL Not Given TID MASTER Digoxin 125 mcg 11/09/24 09:00 11/14/24 08:42 Digoxin Tab 125 Mcg Tablet PO 125 mcg DAILY MASTER Administration Docusate Sodium 100 mg 11/10/24 09:55 11/12/24 09:34 Docusate Sodium 100 Mg Capsule PO 100 mg Q12H PRN Administration Constipation Empagliflozin 10 mg 11/14/24 09:00 11/14/24 08:42 Empagliflozin 10 Mg Tablet PO 10 mg DAILY MASTER Administration Enoxaparin Sodium 120 mg 11/09/24 17:00 11/14/24 05:45 Enoxaparin 120 Mg/0.8 Ml Syringe SUB-Q 120 mg Q12H MASTER Administration Furosemide 40 mg 11/09/24 09:00 11/14/24 08:42 Furosemide Inj 40 Mg/4 Ml Vial IV PUSH 40 mg BID MASTER Administration Gabapentin 300 mg 11/09/24 09:00 11/14/24 08:42 Gabapentin 300 Mg Capsule BY MOUTH 300 mg TID MASTER Administration Glucose 15 gm 11/09/24 01:01 Glucose Oral Gel 15 Gm Of Glucse In 37.5 Gm Tube PO PRN PRN Hypoglycemia Protocol Guaifenesin 1,200 mg 11/09/24 21:00 11/14/24 08:42 Guaifenesin 12 Hr 600 Mg Tabcr PO 11/16/24 20:59 1,200 mg Q12HR MASTER Administration Dextrose 1,000 mls @ 100 mls/hr 11/09/24 01:01 Dextrose 5% 1,000 Ml IVPB PRN PRN Hypoglycemia Protocol Insulin Aspart 2 - 5 units 11/09/24 08:00 11/14/24 09:03 Insulin Aspart (*Bkc) 100 Units/Ml SUB-Q Not Given TIDWM MASTER Protocol Insulin Aspart 1 - 2 units 11/09/24 21:00 11/13/24 21:09 Insulin Aspart (*Bkc) 100 Units/Ml SUB-Q 1 units HS MASTER Administration Protocol Metolazone 2.5 mg 11/13/24 08:30 11/14/24 08:42 Metolazone 2.5 Mg Tablet PO 2.5 mg DAILY@0830 [facility] Administration Metoprolol Succinate 200 mg 11/09/24 09:00 11/14/24 08:43 Metoprolol Succinate Ext Rel 100 Mg Tabcr PO 200 mg DAILY MASTER Administration Morphine Sulfate 2 mg 11/09/24 01:03 11/10/24 03:37 Morphine Sulfate (*Crx) 2 Mg/Ml Inj IV PUSH 2 mg Q4H PRN Administration Pain Rated 7-10 Polyethylene Glycol 17 gm 11/10/24 09:55 11/14/24 08:44 Polyethylene Glycol 3350 17 Gm Powd.Pack [facility] Spironolactone 25 mg 11/12/24 09:00 11/14/24 08:42 Spironolactone 25 Mg Tablet PO 25 mg QAM [facility] Administration Tramadol HCl 25 mg 11/09/24 01:03 11/10/24 08:13 Tramadol Hcl (*Crx) 25 Mg Tablet PO 25 mg Q4H PRN Administration Pain Rated 4-6 Warfarin Sodium 5 mg 11/10/24 17:00 11/13/24 17:35 Warfarin (*Pbkc) 5 Mg Tablet PO 5 mg DAILY@1700 MASTER Administration Warfarin Sodium 3 mg 11/13/24 17:00 11/13/24 17:35 Warfarin (*Pbkc) 3 Mg Tablet PO 3 mg DAILY@1700 [facility] Administration Radiology Results: ITS Impressions Chest CTA 11/09/24 11:12 Impression: No evidence of pulmonary embolus, aortic dissection, or aortic aneurysm. Minimal pericardial effusion. Small to moderate left pleural effusion and small right pleural effusion, with bilateral atelectatic change, left worse than right. Venous Doppler Study 11/09/24 16:04 IMPRESSION: 1. No deep venous thrombosis within the right lower extremity. 2.. Venous thrombosis of the posterior tibial and peroneal veins in the left lower extremity. Pelvis Ultrasound 11/09/24 16:35 IMPRESSION: Heterogeneous endometrial tissue which may indicate endometrial masses ,debris or hematoma. Further evaluation advised. Otherwise, normal pelvic ultrasound. Chest X-Ray 11/14/24 09:01 IMPRESSION: Cardiomegaly with cardiac decompensation and pulmonary edema. Superimposed pneumonia is highly suggestive more prominent in the lower lobes. Bilateral pleural effusion more on the right side Labs Labs: Laboratory Results - last 24 hr 11/13/24 11/13/24 11/13/24 11:14 16:50 21:06 WBC RBC Hgb Hct MCV MCH MCHC RDW Plt Count MPV Immature Gran % (Auto) Neut % (Auto) Lymph % (Auto) [place] % (Auto) Eos % (Auto) Baso % (Auto) Lymph # (Auto) [place] # (Auto) Eos # (Auto) Baso # (Auto) Abs Immat Gran (auto) Absolute Neuts (auto) Absolute Nucleated RBC Band Neutrophils % Nucleated RBC % Platelet Estimate Clumped Platelets Large Platelets Anisocytosis Schistocytes PT INR Sodium Potassium Chloride Carbon Dioxide Anion Gap BUN Creatinine Estim Creat Clear Calc Estimated GFR Glucose POC Capillary Glucose 247 H 225 H 236 H Calcium Magnesium Total Bilirubin AST ALT Alkaline Phosphatase NT-Pro-B Natriuret Pep Total Protein Albumin 11/14/24 11/14/24 04:32 07:53 WBC 7.0 RBC 4.46 Hgb 13.5 Hct 40.6 MCV 91.0 MCH 30.3 MCHC 33.3 RDW 14.0 Plt Count 310 MPV 10.6 H Immature Gran % (Auto) 5.2 H Neut % (Auto) 64.3 Lymph % (Auto) 16.3 L [place] % (Auto) 10.5 H Eos % (Auto) 2.6 Baso % (Auto) 1.1 Lymph # (Auto) 1.14 [place] # (Auto) 0.7 H Eos # (Auto) 0.2 Baso # (Auto) 0.1 Abs Immat Gran (auto) 0.36 H Absolute Neuts (auto) 4.5 Absolute Nucleated RBC 0.000 Band Neutrophils % Not Reportable Nucleated RBC % 0.0 Platelet Estimate Adequate Clumped Platelets Present Large Platelets Present Anisocytosis 1+ Schistocytes None seen PT 17.4 H INR 1.4 Sodium 134 L Potassium 3.5 Chloride 92 L Carbon Dioxide 33 H Anion Gap 9 BUN 21 H Creatinine 0.90 Estim Creat Clear Calc 65 Estimated GFR > 60 Glucose 174 H POC Capillary Glucose 193 H Calcium 8.8 Magnesium 2.1 Total Bilirubin 0.5 AST 73 H ALT 87 H Alkaline Phosphatase 148 H NT-Pro-B Natriuret Pep 1370 H Total Protein 7.0 Albumin 3.6 Quality VTE Prophylaxis VTE prophylaxis: pharmacologic ordered
--- NOTE | 2024-11-14 11:01 | P.PNPL_ITS ---
Progress Note: A&P Assessment and Plan (1) Acute hypoxemic respiratory failure: Code(s): J96.01 - Acute respiratory failure with hypoxia Status: Acute Assessment and Plan: 11/12/24: Does not use oxygen at home, had increased O2 need yesterday, still on significant amounts with Airvo. She can have this weaned. she is using AirVo because this gives some help with wowrk of breathing and is better tolerated; patient gets anxious easily. No elevation of pCO2 so she did not need BiPAP. Cause for acute hypoxemic respiratory failure is not clear. She has small pleural effusions, CTA was negative for a pulmonary embolus but she does have acute thrombus in the left lower leg. Echocardiogram 04/06/2024: LVEF 45-50%, abnormal diastolic function, mildly in least increased left atrium, normal right atrium, normal right ventricular size and function, PASP 21. Echocardiogram 10/20/2024 with LVEF 60 65%, abnormal diastolic function, moderately enlarged left atrium, mildly enlarged right atrium, normal RV size and function, PASP 30. 11/14/2024: The patient tells me she is breathing normal. She has no cough, no phlegm production. No hemoptysis. She is afebrile. White blood cell count 7.0, creatinine 0.9. BNP improved from 2410 on 11/12/2019 5-1370 today. She is +990 mL yesterday. Cumulative she has +2.8 L since admission. Her weight today is 121.1 kg with an admission weight of 122.4 kg. She tells me her lower extremity edema has improved, she is able to lay flat more comfortably. Chest x-ray today with continued bilateral pleural effusions and pulmonary vascular congestion unchanged from 11/11/2024. When I enter the room the patient was on 3 L nasal cannula saturations 96 to 99%. I turned her to room air and after 16 minutes her saturations were 94 to 95%. Plan: etiology of acute hypoxemic respiratory failure like related to fluid overload from HFpEF and AFIB. She has responded to diuretics and states that she is clinically better, can lay flat now, lower extremity edema has improved, BNP has improved and oxygenation has improved and now on room air. Agree with as aggressive diuresis as tolerated by her cardiac and renal systems. Currently on Lasix 40 IV b.i.d., metolazone 2.5 mg p.o. q.day, Spironolactone 25 mg q.a.m., Jardiance 10 q.day, metoprolol 200 q.day, digoxin 125 q.day per Cardiology and hospitalist teams. Goal saturation 90-94% with rest and with activity. I will perform overnight oximetry on room air to assess for nocturnal hypoxemia. Discussed with Sheryl Macario, will follow with you. (2) Reactive airway disease: Code(s): J45.909 - Unspecified asthma, uncomplicated Status: Acute Assessment and Plan: 11/14/24: patient carries a diagnosis of COPD. She is a never smoker but exposed to secondhand smoke from her father and from her up until her divorce 20 years ago. PFTs on 03/19/2021 with normal spirometry, FEV1 103%, ratio 86%, total lung capacity 117% predicted with hyperinflation and mildly decreased DLCO that normalized when adjusted for alveolar volume. CT scan of the chest does not show emphysematous changes. 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 Patient denies ever having history of asthma. She was placed on breztri and rescue albuterol. One of her clinic notes said she is not using the Breztri regularly. She did not have any occupational exposure. I do not believe the patient has COPD given her PFTs and CT scan. She does have a bronchodilator response and states that she clinically has a benefit from bronchodilators. Plan: I will discontinue her duonebs and change her to Anoro Ellipta 1 puff q.day. I will not prescribe her an inhaled corticosteroid. continue guaifenesin 1200 mg p.o. q.12 hours. Goal saturation 90-94% With rest and with activity. I will perform an overnight oximetry on room air to assess nocturnal oxygen needs. (3) Deep vein thrombosis (DVT) of left lower extremity: Code(s): I82.402 - Acute embolism and thrombosis of unspecified deep veins of left lower extremity Status: Acute Assessment and Plan: 11/09/24: lower extremity Dopplers: FINDINGS: The visualized portions of right common femoral vein, profunda (deep) femoral vein, femoral vein, popliteal vein, peroneal veins, posterior tibial veins, and greater saphenous vein outflow are patent. The visualized portions of left common femoral vein, profunda femoral vein, femoral vein, popliteal vein and greater saphenous vein outflow are patent. Noncompressibility and absence of flow are identified within the posterior tibial and peroneal veins in the left lower extremity. 11/11/24: Eliquis stopped, full dose Lovenox started 120 mg subQ Q 12 hours. She failed Eliquis out patient. 11/14/24: Patient states her Left lower extremity swelling has improved. Plan: Patient is being converted to warfarin, dosing per hospitalist team. (4) Hypersomnia: Code(s): G47.10 - Hypersomnia, unspecified Status: Acute Assessment and Plan: Regarding the possibility of untreated obstructive sleep apnea 2-3 years ago she was in [facility] for procedure and the healthcare team said that she stops breathing in her sleep and should be evaluated for sleep apnea as an outpatient. She never followed up on this recommendation. She has daytime hypersomnia. Her BMI is 47.3. She does snore. Her niece is in the room who has watched her nap before and has noticed no witnessed apneas. TSH on 08/30/2024 2.22, normal Plan: a perform overnight oximetry on room air to assess for nocturnal hypoxemia. Patient will need an outpatient split night sleep study. Subjective Date/time seen: 11/14/24 11:01 Interval history: 11/09/24, new consult; Columba Voss is a 69-year-old female with atrial fib for the last 5 years has been well managed with Coumadin. She carries a diagnosis of COPD on no home oxygen, uses Breztri and albuterol. About a month ago, her phone engineer switched her to a Eliquis. Night before last, she developed neck pain, very uncomfortable, worse when she was sleeping in bed so she got up and slept in the recliner. The next day, the pain in the neck had moved down to her anterior chest and to left ribs, wrapping around the chest. She was increasingly short of breath, presented at [place] complaining of LUQ pain. She had nausea, no vomiting, no appetite for a week before arrival. She was in atrial fibrillation, 93% on room air. WBC was high 15.7. Lactic acid 2.7, She had a small left pleural effusion. She was transferred to [place], now in IMU, has increased respiratory distress with increased requirement of oxygen up to 9 L a minute. Testing today 11/09 : Venous thrombosis of the posterior tibial and peroneal veins in the left lower extremity. CTA showed no PE; moderate LEft pleural effusion and left atelectasis. She is already on Eliquis 5 mg bid for atrial fib. She is more short of breath today, now on 9 L. She had decreased appetite before admission, increased welling in both legs. 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 Has not worked for years. She had no occupational exposure to vapors, dusts, fumes, asbestos. PMH: Decreased LV function, diastolic dysfunction, (+) home sleep test not on treatment. COPD. No tobacco. Lots of second hand tobacco per family. DM on insulin, CKD stage 3. 11/10/24; follow up; She feels better, now having her AirVo weaned. FiO2 was 75%, now 60%. She sat on the side of the bed for an hour and half, did not want to get into the chair. 11/12/24; Alert, feels better. She is on lower O2, AirVo 40 L/min and 48% FiO2. Yesterday, she had an ABG on BiPAP 12/6 and 100% pH 7.41, pCO2 42.8, PO2 82.4, Aa gradient 273 which is high and shows a decrease in oxygenation, saturation 96.2%. She does not recall having a difficult time yesterday. She does feel better using Airvo, on much lower oxygen flow, 48% & 40 L/min compared to 100% with BiPAP 12/6. She is not coughing up sputum. Weight is down a small amount, 124.5 kg, at highest was 127.2 kg 2 days ago; Admission weight 122.4 so still above admission weight. She is having an episode of diastolic failure, getting fluid restricted and diuresis with Lasix 40 mg IV b.i.dy and spironolactone 25 mg po daily. BUN today 24, creat 0.99. CXR 11/11 : Moderate bilateral pleural effusions are significantly increased, with moderate pulmonary edema and bibasilar atelectatic change. 11/14/2024: The patient tells me she is breathing normal. She has no cough, no phlegm production. No hemoptysis. She is afebrile. White blood cell count 7.0, creatinine 0.9. BNP improved from 2410 on 11/12/2019 5-1370 today. She is +990 mL yesterday. Cumulative she has +2.8 L since admission. Her weight today is 121.1 kg with an admission weight of 122.4 kg. She tells me her lower extremity edema has improved, she is able to lay flat more comfortably. Chest x-ray today with continued bilateral pleural effusions and pulmonary vascular congestion unchanged from 11/11/2024. When I enter the room the patient was on 3 L nasal cannula saturations 96 to 99%. I turned her to room air and after 16 minutes her saturations were 94 to 95%. Regarding the possibility of untreated obstructive sleep apnea 2-3 years ago she was in [facility] for procedure and the healthcare team said that she stops breathing in her sleep and should be evaluated for sleep apnea as an outpatient. She never followed up on this recommendation. She does snore. Her niece is in the room who has watched her nap before and has noticed no witnessed apneas. DATA 11/09/24 LE Dopplers; EXAMINATION: US venous doppler LE BI DATE: 11/09/2024 16:02 COMPARISON: 08/31/2024 and 05/17/2021. FINDINGS: The visualized portions of right common femoral vein, profunda (deep) femoral vein, femoral vein, popliteal vein, peroneal veins, posterior tibial veins, and greater saphenous vein outflow are patent. The visualized portions of left common femoral vein, profunda femoral vein, femoral vein, popliteal vein and greater saphenous vein outflow are patent. Noncompressibility and absence of flow are identified within the posterior tibial and peroneal veins in the left lower extremity. * 11/09/24 CTA -No evidence of pulmonary embolus, aortic dissection, or aortic aneurysm. Minimal pericardial effusion. Small to moderate left pleural effusion and small right pleural effusion, with bilateral atelectatic change, left worse than right. 03/19/2021: This is a pulmonary function test with pre and post-bronchodilator spirometry, plethysmography and diffusing capacity. Findings: Spirometry: the contour the inspiratory and expiratory flow tracing are normal. The pre bronchodilator FVC is 2.56 L, 96% predicted. The pre bronchodilator FEV1 is 2.20 L, 103% predicted. The pre bronchodilator FEV1: FVC ratio is 86%. The post bronchodilator FVC is 2.92 L, representing a 14% increase. The post bronchodilator FEV1 is 2.34 L, representing a 6% increase. The post bronchodilator FEV1: FVC ratio is 80%. Plethysmography: The total lung capacity is 5.40 L, 117% predicted. The functional residual capacity is 2.93 L, 192% predicted. The residual volume is 2.68 L, 146% predicted. The residual volume: Total lung capacity ratio is 50%. Diffusing capacity: The diffusing capacity unadjusted for hemoglobin and carboxyhemoglobin is 19.7, 71% predicted. The diffusing capacity adjusted for alveolar volume is 4.76, 132% predicted. Impression: The spirometry is normal without evidence of an obstructive abnormality. There is significant improvement after inhaling a single dose of albuterol. The increase in residual volume to total lung volume ratio is consistent with hyperinflation. The diffusing capacity unadjusted for hemoglobin and carboxyhemoglobin is mildly decreased and normalizes when adjusted for alveolar volume. There are no prior studies for comparison Review of Systems Constitutional: Constitutional: Reports no additional constitutional complaints Eyes: Eyes: Reports no additional eye complaints ENT: Reports system reviewed and no additional complaints, except as documented Cardiovascular: Cardiovascular: Reports no additional cardiovascular complaints Respiratory: Respiratory: Reports no additional respiratory complaints Gastrointestinal: Gastrointestinal: Reports no additional gastrointestinal complaints Musculoskeletal: Musculoskeletal: Reports no additional musculoskeletal complaints Neurologic: Reports system reviewed and no additional complaints, except as documented Psychiatric: Psychiatric: Reports no additional psychiatric complaints Endocrine: Endocrine: Reports no additional endocrine complaints Hematologic/Lymphatic: Hematologic/Lymphatic: Reports no additional hematologic/lymphatic complaints Allergic/Immunologic: Allergic/Immunologic: Reports no additional allergic/immunologic complaints Exam Const: General: cooperative, healthy appearing and comfortable Orientation/consciousness: oriented to person, oriented to place and oriented to time HENMT: Head: normal to inspection Ears: hearing grossly normal bilaterally Eyes: General: appearance normal, both eyes and all related structures Neck: Neck: normal visual inspection Chest: Chest palpation & inspection: normal inspection of the chest Resp: Effort & Inspection: normal respiratory effort and able to speak in complete sentences Auscultation: crackles, no rales, no rhonchi, no wheezes and lung sounds not diminished Cardio: Jugular venous distension: no JVD GI: Inspection: normal to inspection GI Palp: No abdominal tenderness Skin: General skin exam: normal color Neuro: General: oriented to person, oriented to place and oriented to time Extrem: General: normal to inspection and edema Psych: Appearance: grossly normal Objective Data Vital Signs Vital Signs: Vital Signs - 24 hr 11/13/24 12:00 11/13/24 12:00 11/13/24 12:00 Temperature 37.1 C Pulse Rate 86 90 Respiratory Rate 14 Blood Pressure 129/89 Pulse Oximetry 97 97 Oxygen Delivery High Flow Nasal Cannula Oxygen Flow Rate 3 Fraction of Inspired Oxygen 11/13/24 14:00 11/13/24 14:02 11/13/24 14:12 Temperature Pulse Rate 96 80 82 Respiratory Rate 20 20 Blood Pressure Pulse Oximetry Oxygen Delivery Oxygen Flow Rate Fraction of Inspired Oxygen 11/13/24 15:38 11/13/24 16:00 11/13/24 16:00 Temperature 37.1 C Pulse Rate 87 85 Respiratory Rate 14 Blood Pressure 152/77 H Pulse Oximetry 100 97 Oxygen Delivery High Flow Nasal Cannula Oxygen Flow Rate 3 Fraction of Inspired Oxygen 11/13/24 18:00 11/13/24 19:42 11/13/24 19:59 Temperature 36.7 C Pulse Rate 78 79 85 Respiratory Rate 17 18 Blood Pressure 153/84 H Pulse Oximetry 96 Oxygen Delivery Oxygen Flow Rate Fraction of Inspired Oxygen 11/13/24 19:59 11/13/24 20:00 11/13/24 20:08 Temperature Pulse Rate 85 81 88 Respiratory Rate 16 18 Blood Pressure Pulse Oximetry 96 Oxygen Delivery High Flow Nasal Cannula Oxygen Flow Rate 3 Fraction of Inspired Oxygen 11/13/24 22:00 11/13/24 23:38 11/14/24 00:00 Temperature 36.4 C Pulse Rate 80 70 69 Respiratory Rate 18 Blood Pressure 129/77 Pulse Oximetry 96 Oxygen Delivery Oxygen Flow Rate Fraction of Inspired Oxygen 11/14/24 02:00 11/14/24 03:51 11/14/24 04:00 Temperature 36.2 C L Pulse Rate 74 75 77 Respiratory Rate 18 Blood Pressure 124/77 Pulse Oximetry 93 Oxygen Delivery Oxygen Flow Rate Fraction of Inspired Oxygen 11/14/24 06:00 11/14/24 07:44 11/14/24 07:44 Temperature Pulse Rate 86 82 Respiratory Rate 20 Blood Pressure Pulse Oximetry 96 Oxygen Delivery High Flow Nasal Cannula Oxygen Flow Rate 3 Fraction of Inspired Oxygen 32 11/14/24 07:51 11/14/24 08:00 11/14/24 08:00 Temperature 36.6 C Pulse Rate 83 82 Respiratory Rate 20 20 Blood Pressure 134/85 Pulse Oximetry 100 95 Oxygen Delivery High Flow Nasal Cannula Oxygen Flow Rate 3 Fraction of Inspired Oxygen 11/14/24 08:00 11/14/24 08:42 11/14/24 08:43 Temperature Pulse Rate 86 82 82 Respiratory Rate Blood Pressure Pulse Oximetry Oxygen Delivery Oxygen Flow Rate Fraction of Inspired Oxygen 11/14/24 10:00 Temperature Pulse Rate 88 Respiratory Rate Blood Pressure Pulse Oximetry Oxygen Delivery Oxygen Flow Rate Fraction of Inspired Oxygen Intake/Output Intake/Output: Intake & Output 11/11/24 11/12/24 11/13/24 11/14/24 23:59 23:59 23:59 23:59 Intake Total 2280 1620 1390 Output Total 1500 553 400 Balance 780 1067 990 Meds/Results Medications: Active Medications Generic Name Dose Route Start Last Admin Trade Name Freq PRN Reason Stop Dose Admin Acetaminophen 650 mg 11/09/24 01:03 Acetaminophen 325 Mg Tablet PO Q4H PRN Mild Pain (1-3) or Fever Albuterol/Ipratropium 3 ml 11/12/24 14:00 11/14/24 07:44 Ipratropium 0.5 Mg/Albuterol Sulfate 2.5 Mg Ampul.Neb 3 Ml INHALATION 3 ml TIDRT MASTER Administration Amlodipine Besylate 10 mg 11/10/24 09:00 11/14/24 08:42 Amlodipine Besylate 10 Mg Tablet PO 10 mg DAILY MASTER Administration Dextrose 12.5 gm 11/09/24 01:01 Dextrose 50% 25 Gm/50 Ml Syringe IV PUSH PRN PRN Hypoglycemia Protocol Diclofenac Sodium 1 applic 11/09/24 17:00 11/14/24 08:43 Diclofenac Sodium 1% 100 Gm Gel (*Bkc) TOPICAL Not Given TID MASTER Digoxin 125 mcg 11/09/24 09:00 11/14/24 08:42 Digoxin Tab 125 Mcg Tablet PO 125 mcg DAILY MASTER Administration Docusate Sodium 100 mg 11/10/24 09:55 11/12/24 09:34 Docusate Sodium 100 Mg Capsule PO 100 mg Q12H PRN Administration Constipation Empagliflozin 10 mg 11/14/24 09:00 11/14/24 08:42 Empagliflozin 10 Mg Tablet PO 10 mg DAILY MASTER Administration Enoxaparin Sodium 120 mg 11/09/24 17:00 11/14/24 05:45 Enoxaparin 120 Mg/0.8 Ml Syringe SUB-Q 120 mg Q12H MASTER Administration Furosemide 40 mg 11/09/24 09:00 11/14/24 08:42 Furosemide Inj 40 Mg/4 Ml Vial IV PUSH 40 mg BID MASTER Administration Gabapentin 300 mg 11/09/24 09:00 11/14/24 08:42 Gabapentin 300 Mg Capsule BY MOUTH 300 mg TID MASTER Administration Glucose 15 gm 11/09/24 01:01 Glucose Oral Gel 15 Gm Of Glucse In 37.5 Gm Tube PO PRN PRN Hypoglycemia Protocol Guaifenesin 1,200 mg 11/09/24 21:00 11/14/24 08:42 Guaifenesin 12 Hr 600 Mg Tabcr PO 11/16/24 20:59 1,200 mg Q12HR MASTER Administration Dextrose 1,000 mls @ 100 mls/hr 11/09/24 01:01 Dextrose 5% 1,000 Ml IVPB PRN PRN Hypoglycemia Protocol Insulin Aspart 2 - 5 units 11/09/24 08:00 11/14/24 09:03 Insulin Aspart (*Bkc) 100 Units/Ml SUB-Q Not Given TIDWM [facility] Protocol Insulin Aspart 1 - 2 units 11/09/24 21:00 11/13/24 21:09 Insulin Aspart (*Bkc) 100 Units/Ml SUB-Q 1 units HS MASTER Administration Protocol Metolazone 2.5 mg 11/13/24 08:30 11/14/24 08:42 Metolazone 2.5 Mg Tablet PO 2.5 mg DAILY@0830 MASTER Administration Metoprolol Succinate 200 mg 11/09/24 09:00 11/14/24 08:43 Metoprolol Succinate Ext Rel 100 Mg Tabcr PO 200 mg DAILY MASTER Administration Morphine Sulfate 2 mg 11/09/24 01:03 11/10/24 03:37 Morphine Sulfate (*Crx) 2 Mg/Ml Inj IV PUSH 2 mg Q4H PRN Administration Pain Rated 7-10 Polyethylene Glycol 17 gm 11/10/24 09:55 11/14/24 08:44 Polyethylene Glycol 3350 17 Gm Powd.Pack PO Not Given QAM [facility] Spironolactone 25 mg 11/12/24 09:00 11/14/24 08:42 Spironolactone 25 Mg Tablet PO 25 mg QAM MASTER Administration Tramadol HCl 25 mg 11/09/24 01:03 11/10/24 08:13 Tramadol Hcl (*Crx) 25 Mg Tablet PO 25 mg Q4H PRN Administration Pain Rated 4-6 Warfarin Sodium 5 mg 11/10/24 17:00 11/13/24 17:35 Warfarin (*Pbkc) 5 Mg Tablet PO 5 mg DAILY@1700 MASTER Administration Warfarin Sodium 3 mg 11/13/24 17:00 11/13/24 17:35 Warfarin (*Pbkc) 3 Mg Tablet PO 3 mg DAILY@1700 MASTER Administration Radiology Results: ITS Impressions Chest CTA 11/09/24 11:12 Impression: No evidence of pulmonary embolus, aortic dissection, or aortic aneurysm. Minimal pericardial effusion. Small to moderate left pleural effusion and small right pleural effusion, with bilateral atelectatic change, left worse than right. Venous Doppler Study 11/09/24 16:04 IMPRESSION: 1. No deep venous thrombosis within the right lower extremity. 2.. Venous thrombosis of the posterior tibial and peroneal veins in the left lower extremity. Pelvis Ultrasound 11/09/24 16:35 IMPRESSION: Heterogeneous endometrial tissue which may indicate endometrial masses ,debris or hematoma. Further evaluation advised. Otherwise, normal pelvic ultrasound. Chest X-Ray 11/14/24 09:01 IMPRESSION: Cardiomegaly with cardiac decompensation and pulmonary edema. Superimposed pneumonia is highly suggestive more prominent in the lower lobes. Bilateral pleural effusion more on the right side Labs Labs: Laboratory Results - last 24 hr 11/13/24 11/13/24 11/13/24 11:14 16:50 21:06 WBC RBC Hgb Hct MCV MCH MCHC RDW Plt Count MPV Immature Gran % (Auto) Neut % (Auto) Lymph % (Auto) [place] % (Auto) Eos % (Auto) Baso % (Auto) Lymph # (Auto) [place] # (Auto) Eos # (Auto) Baso # (Auto) Abs Immat Gran (auto) Absolute Neuts (auto) Absolute Nucleated RBC Band Neutrophils % Nucleated RBC % Platelet Estimate Clumped Platelets Large Platelets Anisocytosis Schistocytes PT INR Sodium Potassium Chloride Carbon Dioxide Anion Gap BUN Creatinine Estim Creat Clear Calc Estimated GFR Glucose POC Capillary Glucose 247 H 225 H 236 H Calcium Magnesium Total Bilirubin AST ALT Alkaline Phosphatase NT-Pro-B Natriuret Pep Total Protein Albumin 11/14/24 11/14/24 04:32 07:53 WBC 7.0 RBC 4.46 Hgb 13.5 Hct 40.6 MCV 91.0 MCH 30.3 MCHC 33.3 RDW 14.0 Plt Count 310 MPV 10.6 H Immature Gran % (Auto) 5.2 H Neut % (Auto) 64.3 Lymph % (Auto) 16.3 L [place] % (Auto) 10.5 H Eos % (Auto) 2.6 Baso % (Auto) 1.1 Lymph # (Auto) 1.14 [place] # (Auto) 0.7 H Eos # (Auto) 0.2 Baso # (Auto) 0.1 Abs Immat Gran (auto) 0.36 H Absolute Neuts (auto) 4.5 Absolute Nucleated RBC 0.000 Band Neutrophils % Not Reportable Nucleated RBC % 0.0 Platelet Estimate Adequate Clumped Platelets Present Large Platelets Present Anisocytosis 1+ Schistocytes None seen PT 17.4 H INR 1.4 Sodium 134 L Potassium 3.5 Chloride 92 L Carbon Dioxide 33 H Anion Gap 9 BUN 21 H Creatinine 0.90 Estim Creat Clear Calc 65 Estimated GFR > 60 Glucose 174 H POC Capillary Glucose 193 H Calcium 8.8 Magnesium 2.1 Total Bilirubin 0.5 AST 73 H ALT 87 H Alkaline Phosphatase 148 H NT-Pro-B Natriuret Pep 1370 H Total Protein 7.0 Albumin 3.6
[2024-11-14 11:37] LABS: Glucose Point of Care 234 mg/dl (65-105)
[2024-11-14] MEDS: INSULIN ASPART (*BKC) 100 UNITS/ML SUB-Q ×2 (11:49→20:24)
[2024-11-14] MEDS: DICLOFENAC SODIUM 1% 100 GM GEL (*BKC) 1 APPLIC TOPICAL ×2 (12:28→17:03)
[2024-11-14 17:01] LABS: Glucose Point of Care 186 mg/dl (65-105)
[2024-11-14] MEDS: WARFARIN (*PBKC) 3 MG TABLET PO (17:02)
[2024-11-14] MEDS: WARFARIN (*PBKC) 5 MG TABLET PO (17:03)
[2024-11-14 20:23] LABS: Glucose Point of Care 221 mg/dl (65-105)
[2024-11-15] VITALS (13 sets, daily range): BP systolic 122–129; BP diastolic 71–83; PULSE 67–91; RESP 18–21; TEMP 36.5–37.2; O2SAT 92–94
[2024-11-15] MEDS: traMADol HCL (*CRX) 25 MG TABLET PO (00:28)
[2024-11-15 05:02] LABS: Basophils Absolute Auto 0.1 K/mm3 (0.0-0.1); Basophils Percent Auto 1.2 % (0.2-1.2); Eosinophils Absolute Auto 0.2 K/mm3 (0-0.3); Eosinophils Percent Auto 1.8 % (0-4.4); Hematocrit 42.7 % (37.0-47.0); Hemoglobin 14.4 g/dL (12.0-15.0); Immature Granulocyte Absolute 0.44 K/mm3 (0.00-0.031); Immature Granulocyte Percent A 5.2 % (0-0.5); Lymphocytes Absolute Auto 1.75 K/mm3 (0.9-3.2); Lymphocytes Percent Auto 20.5 % (18.3-44.2); Mean Corpuscular HGB Conc 33.7 g/dl (32-36); Mean Platelet Volume 10.6 fl (7.4-10.4); Monocytes Absolute Auto 0.7 K/mm3 (0.1-0.6); Monocytes Percent Auto 7.9 % (2.6-8.5); Neutrophils Absolute Auto 5.4 K/mm3 (1.3-6.7); Neutrophils Percent Auto 63.4 % (45.5-73.1); Platelet Count Result 393 k/mm3 (150-375); White Blood Count 8.5 K/mm3 (4.5-10.0)
[2024-11-15 05:14] LABS: Alanine Aminotransferase 82 U/L (6-35); Albumin Level 3.9 g/dL (3.5-5.1); Alkaline Phosphatase 144 U/L (38-126); Anion Gap 11 mmol/L (4-12); Aspartate Amino Transferase 68 U/L (14-36); Bilirubin,Total 0.6 mg/dL (0.2-1.3); Blood Urea Nitrogen 25 mg/dL (7-17); Carbon Dioxide 33 mmol/L (22-30); Chloride 88 mmol/L (98-107); Estimated CRCL calculation 52 ml/min; Estimated Glomerular Filt Rate 49; Glucose 172 mg/dL (65-110); Magnesium 2.3 mg/dL (1.6-2.3); Potassium 3.4 mmol/L (3.4-5.0); Sodium 132 mmol/L (137-145)
[2024-11-15] MEDS: ENOXAPARIN 120 MG/0.8 ML SYRINGE SUB-Q ×2 (05:23→16:42)
[2024-11-15 05:28] LABS: INR 1.4; Prothrombin Time 17.6 Seconds (11.1-14.7)
[2024-11-15 07:55] LABS: Glucose Point of Care 156 mg/dl (65-105)
--- NOTE | 2024-11-15 07:56 | P.PNPL_ITS ---
Progress Note: A&P Assessment and Plan (1) Acute hypoxemic respiratory failure: Code(s): J96.01 - Acute respiratory failure with hypoxia Status: Acute Assessment and Plan: 11/12/24: Does not use oxygen at home, had increased O2 need yesterday, still on significant amounts with Airvo. She can have this weaned. she is using AirVo because this gives some help with wowrk of breathing and is better tolerated; patient gets anxious easily. No elevation of pCO2 so she did not need BiPAP. Cause for acute hypoxemic respiratory failure is not clear. She has small pleural effusions, CTA was negative for a pulmonary embolus but she does have acute thrombus in the left lower leg. Echocardiogram 04/06/2024: LVEF 45-50%, abnormal diastolic function, mildly in least increased left atrium, normal right atrium, normal right ventricular size and function, PASP 21. Echocardiogram 10/20/2024 with LVEF 60 65%, abnormal diastolic function, moderately enlarged left atrium, mildly enlarged right atrium, normal RV size and function, PASP 30. 11/14/2024: The patient tells me she is breathing normal. She has no cough, no phlegm production. No hemoptysis. She is afebrile. White blood cell count 7.0, creatinine 0.9. BNP improved from 2410 on 11/12/2019 5-1370 today. She is +990 mL yesterday. Cumulative she has +2.8 L since admission. Her weight today is 121.1 kg with an admission weight of 122.4 kg. She tells me her lower extremity edema has improved, she is able to lay flat more comfortably. Chest x-ray today with continued bilateral pleural effusions and pulmonary vascular congestion unchanged from 11/11/2024. When I enter the room the patient was on 3 L nasal cannula saturations 96 to 99%. I turned her to room air and after 16 minutes her saturations were 94 to 95%. Plan: etiology of acute hypoxemic respiratory failure like related to fluid overload from HFpEF and AFIB. She has responded to diuretics and states that she is clinically better, can lay flat now, lower extremity edema has improved, BNP has improved and oxygenation has improved and now on room air. Agree with as aggressive diuresis as tolerated by her cardiac and renal systems. Currently on Lasix 40 IV b.i.d., metolazone 2.5 mg p.o. q.day, Spironolactone 25 mg q.a.m., Jardiance 10 q.day, metoprolol 200 q.day, digoxin 125 q.day per Cardiology and hospitalist teams. Goal saturation 90-94% with rest and with activity. I will perform overnight oximetry on room air to assess for nocturnal hypoxemia. Later in the day walk 46 ft with physical therapy on room air. 11/15/24: Patient tells me she is breathing at her baseline. She has no cough, phlegm production or hemoptysis. She is afebrile. White blood cell count 8.5, creatinine 1.10, weight is 118.4 kg. Currently patient is on room air with saturations 93%. Patient had an overnight oximetry on room air with recording duration of 7 hours and 28 minutes. Average saturation 91%. Low saturation 80%. Time with saturation less than or equal to 88% was 24 minutes. Oxygen desaturation index 45.9. Plan: Agree with as aggressive diuresis as tolerated by her cardiac and renal systems per cardiology and hospitalist teams. Patient with hypoxemia at night on room air and will perform overnight oximetry on 2 L tonight. Discussed with Sheryl Macario, will follow with you. (2) Reactive airway disease: Code(s): J45.909 - Unspecified asthma, uncomplicated Status: Acute Assessment and Plan: 11/14/24: patient carries a diagnosis of COPD. She is a never smoker but exposed to secondhand smoke from her father and from her up until her divorce 20 years ago. PFTs on 03/19/2021 with normal spirometry, FEV1 103%, ratio 86%, total lung capacity 117% predicted with hyperinflation and mildly decreased DLCO that normalized when adjusted for alveolar volume. CT scan of the chest does not show emphysematous changes. 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 Patient denies ever having history of asthma. She was placed on breztri and rescue albuterol. One of her clinic notes said she is not using the Breztri regularly. She did not have any occupational exposure. I do not believe the patient has COPD given her PFTs and CT scan. She does have a bronchodilator response and states that she clinically has a benefit from bronchodilators. Plan: I will discontinue her duonebs and change her to Anoro Ellipta 1 puff q.day. I will not prescribe her an inhaled corticosteroid. continue guaifenesin 1200 mg p.o. q.12 hours. Goal saturation 90-94% With rest and with activity. I will perform an overnight oximetry on room air to assess nocturnal oxygen needs. 11/15/24: Patient breathing at her baseline. No wheezing on exam. She is not coughing up any phlegm. Plan: continue Anoro Ellipta 1 puff q.day. I will discontinue guaifenesin as she is making no phlegm. (3) Deep vein thrombosis (DVT) of left lower extremity: Code(s): I82.402 - Acute embolism and thrombosis of unspecified deep veins of left lower extremity Status: Acute Assessment and Plan: 11/09/24: lower extremity Dopplers: FINDINGS: The visualized portions of right common femoral vein, profunda (deep) femoral vein, femoral vein, popliteal vein, peroneal veins, posterior tibial veins, and greater saphenous vein outflow are patent. The visualized portions of left common femoral vein, profunda femoral vein, femoral vein, popliteal vein and greater saphenous vein outflow are patent. Noncompressibility and absence of flow are identified within the posterior tibial and peroneal veins in the left lower extremity. 11/11/24: Eliquis stopped, full dose Lovenox started 120 mg subQ Q 12 hours. She failed Eliquis out patient. 11/14/24: Patient states her Left lower extremity swelling has improved. Plan: Patient is being converted to warfarin, dosing per hospitalist team. (4) Hypersomnia: Code(s): G47.10 - Hypersomnia, unspecified Status: Acute Assessment and Plan: 11/14/24: Regarding the possibility of untreated obstructive sleep apnea 2-3 years ago she was in [facility] for procedure and the healthcare team said that she stops breathing in her sleep and should be evaluated for sleep apnea as an outpatient. She never followed up on this recommendation. She has daytime hypersomnia. Her BMI is 47.3. She does snore. Her niece is in the room who has watched her nap before and has noticed no witnessed apneas. TSH on 08/30/2024 2.22, normal. ABG on 6 L 7.44/36/60 without evidence of hypercarbic respiratory failure. Plan: perform overnight oximetry on room air to assess for nocturnal hypoxemia. Patient will need an outpatient split night sleep study. 11/15/24: Patient had an overnight oximetry on room air with recording duration of 7 hours and 28 minutes. Average saturation 91%. Low saturation 80%. Time with saturation less than or equal to 88% was 24 minutes. Oxygen desaturation index 45.9. Plan: Overnight oximetry on 2 L. Subjective Date/time seen: 11/15/24 07:56 Interval history: 11/09/24, new consult; Columba Voss is a 69-year-old female with atrial fib for the last 5 years has been well managed with Coumadin. She carries a diagnosis of COPD on no home oxygen, uses Breztri and albuterol. About a month ago, her prep person switched her to a Eliquis. Night before last, she developed neck pain, very uncomfortable, worse when she was sleeping in bed so she got up and slept in the recliner. The next day, the pain in the neck had moved down to her anterior chest and to left ribs, wrapping around the chest. She was increasingly short of breath, presented at [place] complaining of LUQ pain. She had nausea, no vomiting, no appetite for a week before arrival. She was in atrial fibrillation, 93% on room air. WBC was high 15.7. Lactic acid 2.7, She had a small left pleural effusion. She was transferred to [place], now in IMU, has increased respiratory distress with increased requirement of oxygen up to 9 L a minute. Testing today 11/09 : Venous thrombosis of the posterior tibial and peroneal veins in the left lower extremity. CTA showed no PE; moderate LEft pleural effusion and left atelectasis. She is already on Eliquis 5 mg bid for atrial fib. She is more short of breath today, now on 9 L. She had decreased appetite before admission, increased welling in both legs. 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 Has not worked for years. She had no occupational exposure to vapors, dusts, fumes, asbestos. PMH: Decreased LV function, diastolic dysfunction, (+) home sleep test not on treatment. COPD. No tobacco. Lots of second hand tobacco per family. DM on insulin, CKD stage 3. 11/10/24; follow up; She feels better, now having her AirVo weaned. FiO2 was 75%, now 60%. She sat on the side of the bed for an hour and half, did not want to get into the chair. 11/12/24; Alert, feels better. She is on lower O2, AirVo 40 L/min and 48% FiO2. Yesterday, she had an ABG on BiPAP / and 100% pH 7.41, pCO2 42.8, PO2 82.4, Aa gradient 273 which is high and shows a decrease in oxygenation, saturation 96.2%. She does not recall having a difficult time yesterday. She does feel better using Airvo, on much lower oxygen flow, 48% & 40 L/min compared to 100% with BiPAP /6. She is not coughing up sputum. Weight is down a small amount, 124.5 kg, at highest was 127.2 kg 2 days ago; Admission weight 122.4 so still above admission weight. She is having an episode of diastolic failure, getting fluid restricted and diuresis with Lasix 40 mg IV b.i.dy and spironolactone 25 mg po daily. BUN today 24, creat 0.99. CXR 11/11 : Moderate bilateral pleural effusions are significantly increased, with moderate pulmonary edema and bibasilar atelectatic change. 11/14/2024: The patient tells me she is breathing normal. She has no cough, no phlegm production. No hemoptysis. She is afebrile. White blood cell count 7.0, creatinine 0.9. BNP improved from 2410 on 11/12/2019 5-1370 today. She is +990 mL yesterday. Cumulative she has +2.8 L since admission. Her weight today is 121.1 kg with an admission weight of 122.4 kg. She tells me her lower extremity edema has improved, she is able to lay flat more comfortably. Chest x-ray today with continued bilateral pleural effusions and pulmonary vascular congestion unchanged from 11/11/2024. When I enter the room the patient was on 3 L nasal cannula saturations 96 to 99%. I turned her to room air and after 16 minutes her saturations were 94 to 95%. Regarding the possibility of untreated obstructive sleep apnea 2-3 years ago she was in [facility] for procedure and the healthcare team said that she stops breathing in her sleep and should be evaluated for sleep apnea as an outpatient. She never followed up on this recommendation. She does snore. Her niece is in the room who has watched her nap before and has noticed no witnessed apneas. Later in the day walk 46 ft with physical therapy on room air. 11/15/24: Patient tells me she is breathing at her baseline. She has no cough, phlegm production or hemoptysis. She is afebrile. White blood cell count 8.5, creatinine 1.10, weight is 118.4 kg. Currently patient is on room air with saturations 93%. Patient had an overnight oximetry on room air with recording duration of 7 hours and 28 minutes. Average saturation 91%. Low saturation 80%. Time with saturation less than or equal to 88% was 24 minutes. Oxygen desaturation index 45.9. DATA 11/09/24 LE Dopplers; EXAMINATION: US venous doppler LE BI DATE: 11/09/2024 16:02 COMPARISON: 08/31/2024 and 05/17/2021. FINDINGS: The visualized portions of right common femoral vein, profunda (deep) femoral vein, femoral vein, popliteal vein, peroneal veins, posterior tibial veins, and greater saphenous vein outflow are patent. The visualized portions of left common femoral vein, profunda femoral vein, femoral vein, popliteal vein and greater saphenous vein outflow are patent. Noncompressibility and absence of flow are identified within the posterior tibial and peroneal veins in the left lower extremity. * 11/09/24 CTA -No evidence of pulmonary embolus, aortic dissection, or aortic aneurysm. Minimal pericardial effusion. Small to moderate left pleural effusion and small right pleural effusion, with bilateral atelectatic change, left worse than right. 03/19/2021: This is a pulmonary function test with pre and post-bronchodilator spirometry, plethysmography and diffusing capacity. Findings: Spirometry: the contour the inspiratory and expiratory flow tracing are normal. The pre bronchodilator FVC is 2.56 L, 96% predicted. The pre bronchodilator FEV1 is 2.20 L, 103% predicted. The pre bronchodilator FEV1: FVC ratio is 86%. The post bronchodilator FVC is 2.92 L, representing a 14% increase. The post bronchodilator FEV1 is 2.34 L, representing a 6% increase. The post bronchodilator FEV1: FVC ratio is 80%. Plethysmography: The total lung capacity is 5.40 L, 117% predicted. The functional residual capacity is 2.93 L, 192% predicted. The residual volume is 2.68 L, 146% predicted. The residual volume: Total lung capacity ratio is 50%. Diffusing capacity: The diffusing capacity unadjusted for hemoglobin and carboxyhemoglobin is 19.7, 71% predicted. The diffusing capacity adjusted for alveolar volume is 4.76, 132% predicted. Impression: The spirometry is normal without evidence of an obstructive abnormality. There is significant improvement after inhaling a single dose of albuterol. The increase in residual volume to total lung volume ratio is consistent with hyperinflation. The diffusing capacity unadjusted for hemoglobin and carboxyhemoglobin is mildly decreased and normalizes when adjusted for alveolar volume. There are no prior studies for comparison Review of Systems Review of Systems: All systems reviewed & are unremarkable except as noted in HPI and below Constitutional: Constitutional: Reports no additional constitutional complaints Eyes: Eyes: Reports no additional eye complaints ENT: Reports system reviewed and no additional complaints, except as documented Cardiovascular: Cardiovascular: Reports no additional cardiovascular complaints Respiratory: Respiratory: Reports no additional respiratory complaints Gastrointestinal: Gastrointestinal: Reports no additional gastrointestinal complaints Musculoskeletal: Musculoskeletal: Reports no additional musculoskeletal complaints Neurologic: Reports system reviewed and no additional complaints, except as documented Psychiatric: Psychiatric: Reports no additional psychiatric complaints Endocrine: Endocrine: Reports no additional endocrine complaints Hematologic/Lymphatic: Hematologic/Lymphatic: Reports no additional hematologi c/lymphatic complaints Allergic/Immunologic: Allergic/Immunologic: Reports no additional allergic/immunologic complaints Exam Const: General: cooperative, healthy appearing and comfortable Orientation/consciousness: oriented to person, oriented to place and oriented to time HENMT: Head: normal to inspection Ears: hearing grossly normal bilaterally Eyes: General: appearance normal, both eyes and all related structures Neck: Neck: normal visual inspection Chest: Chest palpation & inspection: normal inspection of the chest Resp: Effort & Inspection: normal respiratory effort and able to speak in complete sentences Auscultation: crackles, no rales, no rhonchi, no wheezes and lung sounds not diminished Cardio: Jugular venous distension: no JVD GI: Inspection: normal to inspection Skin: General skin exam: normal color Neuro: General: oriented to person, oriented to place and oriented to time Extrem: General: normal to inspection and edema Psych: Appearance: grossly normal Objective Data Vital Signs Vital Signs: Vital Signs - 24 hr 11/14/24 08:00 11/14/24 08:00 11/14/24 08:00 Temperature 36.6 C Pulse Rate 82 86 Respiratory Rate 20 Blood Pressure 134/85 Pulse Oximetry 100 95 Oxygen Delivery High Flow Nasal Cannula Oxygen Flow Rate 3 11/14/24 08:42 11/14/24 08:43 11/14/24 10:00 Temperature Pulse Rate 82 82 88 Respiratory Rate Blood Pressure Pulse Oximetry Oxygen Delivery Oxygen Flow Rate 11/14/24 10:44 11/14/24 10:55 11/14/24 12:00 Temperature Pulse Rate Respiratory Rate Blood Pressure Pulse Oximetry 95 Oxygen Delivery Room Air Room Air Room Air Oxygen Flow Rate 11/14/24 12:00 11/14/24 12:00 11/14/24 14:00 Temperature 36.5 C Pulse Rate 93 82 79 Respiratory Rate 18 Blood Pressure 128/71 Pulse Oximetry 94 Oxygen Delivery Oxygen Flow Rate 11/14/24 16:00 11/14/24 16:00 11/14/24 16:00 Temperature 36.6 C Pulse Rate 76 51 L Respiratory Rate 20 Blood Pressure 132/77 Pulse Oximetry 91 94 Oxygen Delivery Room Air Oxygen Flow Rate 11/14/24 18:00 11/14/24 19:31 11/14/24 20:00 Temperature 36.5 C Pulse Rate 89 84 Respiratory Rate 18 Blood Pressure 120/93 H Pulse Oximetry 93 Oxygen Delivery Room Air Oxygen Flow Rate 11/14/24 20:00 11/14/24 22:00 11/14/24 22:05 Temperature Pulse Rate 78 76 76 Respiratory Rate Blood Pressure Pulse Oximetry 94 Oxygen Delivery Room Air Oxygen Flow Rate 11/14/24 23:22 11/15/24 00:00 11/15/24 00:00 Temperature 36.3 C L Pulse Rate 84 73 Respiratory Rate 18 Blood Pressure 137/67 Pulse Oximetry 91 Oxygen Delivery Room Air Oxygen Flow Rate 11/15/24 02:00 11/15/24 04:00 11/15/24 04:00 Temperature 36.6 C Pulse Rate 77 84 Respiratory Rate 18 Blood Pressure 122/74 Pulse Oximetry 94 Oxygen Delivery Room Air Oxygen Flow Rate 11/15/24 04:00 11/15/24 06:00 Temperature Pulse Rate 69 74 Respiratory Rate Blood Pressure Pulse Oximetry Oxygen Delivery Oxygen Flow Rate Intake/Output Intake/Output: Intake & Output 11/12/24 11/13/24 11/14/24 11/15/24 23:59 23:59 23:59 23:59 Intake Total 1620 1390 1320 Output Total 553 400 Balance 9188 413 4870 Meds/Results Medications: Active Medications Generic Name Dose Route Start Last Admin Trade Name Freq PRN Reason Stop Dose Admin Acetaminophen 650 mg 11/09/24 01:03 Acetaminophen 325 Mg Tablet PO Q4H PRN Mild Pain (1-3) or Fever Amlodipine Besylate 10 mg 11/10/24 09:00 11/14/24 08:42 Amlodipine Besylate 10 Mg Tablet PO 10 mg DAILY MASTER Administration Dextrose 12.5 gm 11/09/24 01:01 Dextrose 50% 25 Gm/50 Ml Syringe IV PUSH PRN PRN Hypoglycemia Protocol Diclofenac Sodium 1 applic 11/09/24 17:00 11/14/24 17:03 Diclofenac Sodium 1% 100 Gm Gel (*Bkc) TOPICAL 1 applic TID MASTER Administration Digoxin 125 mcg 11/09/24 09:00 11/14/24 08:42 Digoxin Tab 125 Mcg Tablet PO 125 mcg DAILY MASTER Administration Docusate Sodium 100 mg 11/10/24 09:55 11/12/24 09:34 Docusate Sodium 100 Mg Capsule PO 100 mg Q12H PRN Administration Constipation Empagliflozin 10 mg 11/14/24 09:00 11/14/24 08:42 Empagliflozin 10 Mg Tablet PO 10 mg DAILY MASTER Administration Enoxaparin Sodium 120 mg 11/09/24 17:00 11/15/24 05:23 Enoxaparin 120 Mg/0.8 Ml Syringe SUB-Q 120 mg Q12H MASTER Administration Furosemide 40 mg 11/09/24 09:00 11/14/24 17:02 Furosemide Inj 40 Mg/4 Ml Vial IV PUSH 40 mg BID MASTER Administration Gabapentin 300 mg 11/09/24 09:00 11/14/24 17:02 Gabapentin 300 Mg Capsule BY MOUTH 300 mg TID MASTER Administration Glucose 15 gm 11/09/24 01:01 Glucose Oral Gel 15 Gm Of Glucse In 37.5 Gm Tube PO PRN PRN Hypoglycemia Protocol Guaifenesin 1,200 mg 11/09/24 21:00 11/14/24 20:23 Guaifenesin 12 Hr 600 Mg Tabcr PO 11/16/24 20:59 1,200 mg Q12HR MASTER Administration Dextrose 1,000 mls @ 100 mls/hr 11/09/24 01:01 Dextrose 5% 1,000 Ml IVPB PRN PRN Hypoglycemia Protocol Insulin Aspart 2 - 5 units 11/09/24 08:00 11/14/24 17:11 Insulin Aspart (*Bkc) 100 Units/Ml SUB-Q Not Given TIDWM ON LICENSE OF [facility] Protocol Insulin Aspart 1 - 2 units 11/09/24 21:00 11/14/24 20:24 Insulin Aspart (*Bkc) 100 Units/Ml SUB-Q 1 units HS MASTER Administration Protocol Metolazone 2.5 mg 11/13/24 08:30 11/14/24 08:42 Metolazone 2.5 Mg Tablet PO 2.5 mg DAILY@0830 ON LICENSE OF [facility] Administration Metoprolol Succinate 200 mg 11/09/24 09:00 11/14/24 08:43 Metoprolol Succinate Ext Rel 100 Mg Tabcr PO 200 mg DAILY ON LICENSE OF [facility] Administration Morphine Sulfate 2 mg 11/09/24 01:03 11/10/24 03:37 Morphine Sulfate (*Crx) 2 Mg/Ml Inj IV PUSH 2 mg Q4H PRN Administration Pain Rated 7-10 Polyethylene Glycol 17 gm 11/10/24 09:55 11/14/24 08:44 Polyethylene Glycol 3350 17 Gm Powd.Pack PO Not Given QAM MASTER Spironolactone 25 mg 11/12/24 09:00 11/14/24 08:42 Spironolactone 25 Mg Tablet PO 25 mg QAM ON LICENSE OF [facility] Administration Tramadol HCl 25 mg 11/09/24 01:03 11/15/24 00:28 Tramadol Hcl (*Crx) 25 Mg Tablet PO 25 mg Q4H PRN Administration Pain Rated 4-6 Umeclidinium/Vilanterol 1 puff 11/14/24 11:25 11/14/24 14:43 Umeclidinium/Vilanterol 62.5-25 Mcg Ellipta INHALATION [facility]farin Sodium 5 mg 11/10/24 17:00 11/14/24 17:03 Warfarin (*Pbkc) 5 Mg Tablet PO 5 mg DAILY@1700 ON LICENSE OF [facility] Administration Warfarin Sodium 4 mg 11/15/24 17:00 Warfarin (*Pbkc) 4 Mg Tablet PO DAILY@1700 ON LICENSE OF [facility] Radiology Results: ITS Impressions Chest CTA 11/09/24 11:12 Impression: No evidence of pulmonary embolus, aortic dissection, or aortic aneurysm. Minimal pericardial effusion. Small to moderate left pleural effusion and small right pleural effusion, with bilateral atelectatic change, left worse than right. Venous Doppler Study 11/09/24 16:04 IMPRESSION: 1. No deep venous thrombosis within the right lower extremity. 2.. Venous thrombosis of the posterior tibial and peroneal veins in the left lower extremity. Pelvis Ultrasound 11/09/24 16:35 IMPRESSION: Heterogeneous endometrial tissue which may indicate endometrial masses ,debris or hematoma. Further evaluation advised. Otherwise, normal pelvic ultrasound. Chest X-Ray 11/14/24 09:01 IMPRESSION: Cardiomegaly with cardiac decompensation and pulmonary edema. Superimposed pneumonia is highly suggestive more prominent in the lower lobes. Bilateral pleural effusion more on the right side Labs Labs: Laboratory Results - last 24 hr 11/14/24 11/14/24 11/14/24 04:32 07:53 11:34 WBC RBC Hgb Hct MCV MCH MCHC RDW Plt Count MPV Immature Gran % (Auto) Neut % (Auto) Lymph % (Auto) [place] % (Auto) Eos % (Auto) Baso % (Auto) Lymph # (Auto) [place] # (Auto) Eos # (Auto) Baso # (Auto) Abs Immat Gran (auto) Absolute Neuts (auto) Absolute Nucleated RBC Nucleated RBC % PT INR Sodium Potassium Chloride Carbon Dioxide Anion Gap BUN Creatinine Estim Creat Clear Calc Estimated GFR Glucose POC Capillary Glucose 193 H 234 H Calcium Magnesium Total Bilirubin AST ALT Alkaline Phosphatase NT-Pro-B Natriuret Pep 1370 H Total Protein Albumin 11/14/24 11/14/24 11/15/24 16:23 20:21 04:35 WBC 8.5 RBC 4.80 Hgb 14.4 Hct 42.7 MCV 89.0 MCH 30.0 MCHC 33.7 RDW 14.0 Plt Count 393 H MPV 10.6 H Immature Gran % (Auto) 5.2 H Neut % (Auto) 63.4 Lymph % (Auto) 20.5 [place] % (Auto) 7.9 Eos % (Auto) 1.8 Baso % (Auto) 1.2 Lymph # (Auto) 1.75 [place] # (Auto) 0.7 H Eos # (Auto) 0.2 Baso # (Auto) 0.1 Abs Immat Gran (auto) 0.44 H Absolute Neuts (auto) 5.4 Absolute Nucleated RBC 0.000 Nucleated RBC % 0.0 PT 17.6 H INR 1.4 Sodium 132 L Potassium 3.4 Chloride 88 L Carbon Dioxide 33 H Anion Gap 11 BUN 25 H Creatinine 1.10 H Estim Creat Clear Calc 52 Estimated GFR 49 L Glucose 172 H POC Capillary Glucose 186 H 221 H Calcium 9.0 Magnesium 2.3 Total Bilirubin 0.6 AST 68 H ALT 82 H Alkaline Phosphatase 144 H NT-Pro-B Natriuret Pep Total Protein 7.0 Albumin 3.9 11/15/24 07:33 WBC RBC Hgb Hct MCV MCH MCHC RDW Plt Count MPV Immature Gran % (Auto) Neut % (Auto) Lymph % (Auto) [place] % (Auto) Eos % (Auto) Baso % (Auto) Lymph # (Auto) [place] # (Auto) Eos # (Auto) Baso # (Auto) Abs Immat Gran (auto) Absolute Neuts (auto) Absolute Nucleated RBC Nucleated RBC % PT INR Sodium Potassium Chloride Carbon Dioxide Anion Gap BUN Creatinine Estim Creat Clear Calc Estimated GFR Glucose POC Capillary Glucose 156 H Calcium Magnesium Total Bilirubin AST ALT Alkaline Phosphatase NT-Pro-B Natriuret Pep Total Protein Albumin
--- NOTE | 2024-11-15 08:00 | PM.PNCARD ---
Progress Note: A&P Assessment and Plan (1) CHF (congestive heart failure): Code(s): I50.9 - Heart failure, unspecified Status: Acute Assessment and Plan: Acute on chronic diastolic heart failure. Her regular receiving weigher is Dr. Mason with [facility]. Restrict fluid to 1.5 l/day. On Lasix 40 mg IV BID, Metolazone 2.5 mg daily and Spironolactone 25 mg daily, Jardiance 10 mg daily. Upon discharge would change IV Lasix to Bumetanide 1 mg PO BID. (2) Deep vein thrombosis (DVT) of left lower extremity: Code(s): I82.402 - Acute embolism and thrombosis of unspecified deep veins of left lower extremity Status: Acute Assessment and Plan: On Lovenox. Was on Warfarin until a month ago it was changed to Eliquis. She is being restarted on Warfarin. (3) Afib: Qualifiers: Atrial fibrillation type: unspecified chronic Qualified Code(s): I48.20 - Chronic atrial fibrillation, unspecified Code(s): I48.91 - Unspecified atrial fibrillation Status: Chronic Assessment and Plan: Rate is controlled on Metoprolol and Digoxin. Anticoagulate will be covered with DVT treatment. (4) Hypertension: Code(s): I10 - Essential (primary) hypertension Status: Chronic Assessment and Plan: Stable. (5) COPD (chronic obstructive pulmonary disease): Code(s): J44.9 - Chronic obstructive pulmonary disease, unspecified Status: Acute Assessment and Plan: On CPAP and Nebs and antibiotics. Subjective Date/time seen: 11/15/24 08:00 Interval history: Reports sob improved. No chest pains. She would like to go home. Exam Const: General: cooperative, healthy appearing and comfortable Orientation/consciousness: oriented to person, oriented to place and oriented to time Resp: Auscultation: clear to auscultation bilaterally, crackles, no rales, no rhonchi, no wheezes and diminished lung sounds Cardio: Rate: regular rate Rhythm: abnormal rhythm Heart sounds: no murmurs Peripheral pulses: dorsalis pedis present Neuro: General: oriented to person, oriented to place and oriented to time Extrem: Right lower extremity: edema Left lower extremity: edema Other: Mod edema of both legs Objective Data Vital Signs Vital Signs: Vital Signs - 24 hr 11/14/24 08:42 11/14/24 08:43 11/14/24 10:00 Temperature Pulse Rate 82 82 88 Respiratory Rate Blood Pressure Pulse Oximetry Oxygen Delivery 11/14/24 10:44 11/14/24 10:55 11/14/24 12:00 Temperature Pulse Rate Respiratory Rate Blood Pressure Pulse Oximetry 95 Oxygen Delivery Room Air Room Air Room Air 11/14/24 12:00 11/14/24 12:00 11/14/24 14:00 Temperature 97.7 F Pulse Rate 93 82 79 Respiratory Rate 18 Blood Pressure 128/71 Pulse Oximetry 94 Oxygen Delivery 11/14/24 16:00 11/14/24 16:00 11/14/24 16:00 Temperature 97.8 F Pulse Rate 76 51 L Respiratory Rate 20 Blood Pressure 132/77 Pulse Oximetry 91 94 Oxygen Delivery Room Air 11/14/24 18:00 11/14/24 19:31 11/14/24 20:00 Temperature 97.7 F Pulse Rate 89 84 Respiratory Rate 18 Blood Pressure 120/93 H Pulse Oximetry 93 Oxygen Delivery Room Air 11/14/24 20:00 11/14/24 22:00 11/14/24 22:05 Temperature Pulse Rate 78 76 76 Respiratory Rate Blood Pressure Pulse Oximetry 94 Oxygen Delivery Room Air 11/14/24 23:22 11/15/24 00:00 11/15/24 00:00 Temperature 97.3 F L Pulse Rate 84 73 Respiratory Rate 18 Blood Pressure 137/67 Pulse Oximetry 91 Oxygen Delivery Room Air 11/15/24 02:00 11/15/24 04:00 11/15/24 04:00 Temperature 97.8 F Pulse Rate 77 84 Respiratory Rate 18 Blood Pressure 122/74 Pulse Oximetry 94 Oxygen Delivery Room Air 11/15/24 04:00 11/15/24 06:00 Temperature Pulse Rate 69 74 Respiratory Rate Blood Pressure Pulse Oximetry Oxygen Delivery Intake/Output Intake/Output: Intake & Output 11/12/24 11/13/24 11/14/24 11/15/24 23:59 23:59 23:59 23:59 Intake Total 1620 1390 1320 Output Total 553 400 Balance 1847 826 0920 Meds/Results Medications: Active Medications Generic Name Dose Route Start Last Admin Trade Name Freq PRN Reason Stop Dose Admin Acetaminophen 650 mg 11/09/24 01:03 Acetaminophen 325 Mg Tablet PO Q4H PRN Mild Pain (1-3) or Fever Amlodipine Besylate 10 mg 11/10/24 09:00 11/14/24 08:42 Amlodipine Besylate 10 Mg Tablet PO 10 mg DAILY MASTER Administration Dextrose 12.5 gm 11/09/24 01:01 Dextrose 50% 25 Gm/50 Ml Syringe IV PUSH PRN PRN Hypoglycemia Protocol Diclofenac Sodium 1 applic 11/09/24 17:00 11/14/24 17:03 Diclofenac Sodium 1% 100 Gm Gel (*Bkc) TOPICAL 1 applic TID MASTER Administration Digoxin 125 mcg 11/09/24 09:00 11/14/24 08:42 Digoxin Tab 125 Mcg Tablet PO 125 mcg DAILY MASTER Administration Docusate Sodium 100 mg 11/10/24 09:55 11/12/24 09:34 Docusate Sodium 100 Mg Capsule PO 100 mg Q12H PRN Administration Constipation Empagliflozin 10 mg 11/14/24 09:00 11/14/24 08:42 Empagliflozin 10 Mg Tablet PO 10 mg DAILY MASTER Administration Enoxaparin Sodium 120 mg 11/09/24 17:00 11/15/24 05:23 Enoxaparin 120 Mg/0.8 Ml Syringe SUB-Q 120 mg Q12H MASTER Administration Furosemide 40 mg 11/09/24 09:00 11/14/24 17:02 Furosemide Inj 40 Mg/4 Ml Vial IV PUSH 40 mg BID MASTER Administration Gabapentin 300 mg 11/09/24 09:00 11/14/24 17:02 Gabapentin 300 Mg Capsule BY MOUTH 300 mg TID MASTER Administration Glucose 15 gm 11/09/24 01:01 Glucose Oral Gel 15 Gm Of Glucse In 37.5 Gm Tube PO PRN PRN Hypoglycemia Protocol Guaifenesin 1,200 mg 11/09/24 21:00 11/14/24 20:23 Guaifenesin 12 Hr 600 Mg Tabcr PO 11/16/24 20:59 1,200 mg Q12HR MASTER Administration Dextrose 1,000 mls @ 100 mls/hr 11/09/24 01:01 Dextrose 5% 1,000 Ml IVPB PRN PRN Hypoglycemia Protocol Insulin Aspart 2 - 5 units 11/09/24 08:00 11/14/24 17:11 Insulin Aspart (*Bkc) 100 Units/Ml SUB-Q Not Given TIDWM MASTER Protocol Insulin Aspart 1 - 2 units 11/09/24 21:00 11/14/24 20:24 Insulin Aspart (*Bkc) 100 Units/Ml SUB-Q 1 units HS [facility] Administration Protocol Metolazone 2.5 mg 11/13/24 08:30 11/14/24 08:42 Metolazone 2.5 Mg Tablet PO 2.5 mg DAILY@0830 [facility] Administration Metoprolol Succinate 200 mg 11/09/24 09:00 11/14/24 08:43 Metoprolol Succinate Ext Rel 100 Mg Tabcr PO 200 mg DAILY [facility] Administration Morphine Sulfate 2 mg 11/09/24 01:03 11/10/24 03:37 Morphine Sulfate (*Crx) 2 Mg/Ml Inj IV PUSH 2 mg Q4H PRN Administration Pain Rated 7-10 Polyethylene Glycol 17 gm 11/10/24 09:55 11/14/24 08:44 Polyethylene Glycol 3350 17 Gm Powd.Pack PO [facility] [place]iron[place]one 25 mg 11/12/24 09:00 11/14/24 08:42 Spironolactone 25 Mg Tablet PO 25 mg QAM [facility] Administration Tramadol HCl 25 mg 11/09/24 01:03 11/15/24 00:28 Tramadol Hcl (*Crx) 25 Mg Tablet PO 25 mg Q4H PRN Administration Pain Rated 4-6 Umeclidinium/Vilanterol 1 puff 11/14/24 11:25 11/14/24 14:43 Umeclidinium/Vilanterol 62.5-25 Mcg Ellipta INHALATION [facility]far[facility] Sodium 5 mg 11/10/24 17:00 11/14/24 17:03 Warfarin (*Pbkc) 5 Mg Tablet PO 5 mg DAILY@1700 [facility] Administration Warfarin Sodium 4 mg 11/15/24 17:00 Warfarin (*Pbkc) 4 Mg Tablet PO DAILY@1700 [facility] Radiology Results: ITS Impressions Chest CTA 11/09/24 11:12 Impression: No evidence of pulmonary embolus, aortic dissection, or aortic aneurysm. Minimal pericardial effusion. Small to moderate left pleural effusion and small right pleural effusion, with bilateral atelectatic change, left worse than right. Venous Doppler Study 11/09/24 16:04 IMPRESSION: 1. No deep venous thrombosis within the right lower extremity. 2.. Venous thrombosis of the posterior tibial and peroneal veins in the left lower extremity. Pelvis Ultrasound 11/09/24 16:35 IMPRESSION: Heterogeneous endometrial tissue which may indicate endometrial masses ,debris or hematoma. Further evaluation advised. Otherwise, normal pelvic ultrasound. Chest X-Ray 11/14/24 09:01 IMPRESSION: Cardiomegaly with cardiac decompensation and pulmonary edema. Superimposed pneumonia is highly suggestive more prominent in the lower lobes. Bilateral pleural effusion more on the right side Labs Labs: Laboratory Results - last 24 hr 11/14/24 11/14/24 11/14/24 04:32 07:53 11:34 WBC RBC Hgb Hct MCV MCH MCHC RDW Plt Count MPV Immature Gran % (Auto) Neut % (Auto) Lymph % (Auto) Gaines % (Auto) Eos % (Auto) Baso % (Auto) Lymph # (Auto) Gaines # (Auto) Eos # (Auto) Baso # (Auto) Abs Immat Gran (auto) Absolute Neuts (auto) Absolute Nucleated RBC Nucleated RBC % PT INR Sodium Potassium Chloride Carbon Dioxide Anion Gap BUN Creatinine Estim Creat Clear Calc Estimated GFR Glucose POC Capillary Glucose 193 H 234 H Calcium Magnesium Total Bilirubin AST ALT Alkaline Phosphatase NT-Pro-B Natriuret Pep 1370 H Total Protein Albumin 11/14/24 11/14/24 11/15/24 16:23 20:21 04:35 WBC 8.5 RBC 4.80 Hgb 14.4 Hct 42.7 MCV 89.0 MCH 30.0 MCHC 33.7 RDW 14.0 Plt Count 393 H MPV 10.6 H Immature Gran % (Auto) 5.2 H Neut % (Auto) 63.4 Lymph % (Auto) 20.5 Gaines % (Auto) 7.9 Eos % (Auto) 1.8 Baso % (Auto) 1.2 Lymph # (Auto) 1.75 Gaines # (Auto) 0.7 H Eos # (Auto) 0.2 Baso # (Auto) 0.1 Abs Immat Gran (auto) 0.44 H Absolute Neuts (auto) 5.4 Absolute Nucleated RBC 0.000 Nucleated RBC % 0.0 PT 17.6 H INR 1.4 Sodium 132 L Potassium 3.4 Chloride 88 L Carbon Dioxide 33 H Anion Gap 11 BUN 25 H Creatinine 1.10 H Estim Creat Clear Calc 52 Estimated GFR 49 L Glucose 172 H POC Capillary Glucose 186 H 221 H Calcium 9.0 Magnesium 2.3 Total Bilirubin 0.6 AST 68 H ALT 82 H Alkaline Phosphatase 144 H NT-Pro-B Natriuret Pep Total Protein 7.0 Albumin 3.9 11/15/24 07:33 WBC RBC Hgb Hct MCV MCH MCHC RDW Plt Count MPV Immature Gran % (Auto) Neut % (Auto) Lymph % (Auto) Gaines % (Auto) Eos % (Auto) Baso % (Auto) Lymph # (Auto) Gaines # (Auto) Eos # (Auto) Baso # (Auto) Abs Immat Gran (auto) Absolute Neuts (auto) Absolute Nucleated RBC Nucleated RBC % PT INR Sodium Potassium Chloride Carbon Dioxide Anion Gap BUN Creatinine Estim Creat Clear Calc Estimated GFR Glucose POC Capillary Glucose 156 H Calcium Magnesium Total Bilirubin AST ALT Alkaline Phosphatase NT-Pro-B Natriuret Pep Total Protein Albumin
[2024-11-15] MEDS: UMECLIDINIUM/VILANTEROL 62.5-25 MCG ELLIPTA 1 PUFF INHALATION (08:05)
[2024-11-15] MEDS: GABAPENTIN 300 MG CAPSULE BY MOUTH ×3 (08:48→16:42)
[2024-11-15] MEDS: EMPAGLIFLOZIN 10 MG TABLET PO (08:48)
[2024-11-15] MEDS: METOPROLOL SUCCINATE EXT REL 100 MG TABCR 200 MG PO (08:49)
[2024-11-15] MEDS: metOLazone 2.5 MG TABLET PO (08:49)
[2024-11-15] MEDS: DIGOXIN TAB 125 MCG TABLET PO (08:49)
[2024-11-15] MEDS: amLODIPine BESYLATE 10 MG TABLET PO (08:49)
[2024-11-15] MEDS: POTASSIUM CHLORIDE 20 MEQ ER TABLET 40 MEQ PO (08:54)
[2024-11-15] MEDS: SPIRONOLACTONE 25 MG TABLET PO (08:56)
[2024-11-15] MEDS: FUROSEMIDE INJ 40 MG/4 ML VIAL IV PUSH ×2 (08:56→16:42)
--- NOTE | 2024-11-15 09:59 | P.PNIM_ITS ---
Progress Note: A&P Assessment and Plan (1) Heart failure with reduced ejection fraction: Code(s): I50.20 - Unspecified systolic (congestive) heart failure Status: Acute Assessment and Plan: * BNP 2285>1870>2410>1370 * 11/11/24 Patient had worsening shortness of breath overnight. Patient immediately placed on BiPAP. Improved symptomatology. She has significant wet crackles diffusely. No wheezing, no stridor. Stat chest x-ray demonstrates severe pulmonary edema. Lower extremities still with 2+ pitting edema bilaterally below the knees. Daily weights and urine output unclear per the nursing team as she has been going in her depends. ABG pCO2 43.8, pH 7.413. Given Lasix 80 mg IV x1. * Echocardiogram: Summary 1. Complete two-dimensional, color flow and Doppler transthoracic echocardiogram is performed. 2. Left ventricular chamber dimension is normal. 3. Left ventricular systolic function is normal, estimated at 60-65%. 4. The left ventricular diastolic function is abnormal. 5. E/e' 16 is elevated. 6. Atrial fibrillation. 7. Left atrial chamber dimension is moderately enlarged. 8. Right atrial chamber dimension is mildly enlarged. 9. There is mild aortic valve sclerosis. 10. There is trace mitral valve regurgitation. 11. No pulmonary hypertension, estimated pulmonary arterial systolic pressure is 30 mmHg. 12. There is trivial pericardial effusion. * Furosemide 40 mg ivp BID. * Metolazone 2.5 mg PO at 8:30 am. * Spironolactone 25 mg PO qam. * Jardiance 10 mg PO daily added. * Daily weights. * Strict I&O's. * Fluid restriction 1500 ml. * Cardiology consult, appreciate recommendations. (2) Paroxysmal atrial fibrillation: Code(s): I48.0 - Paroxysmal atrial fibrillation Status: Chronic Assessment and Plan: * Patient was taking Eliquis 5 mg PO BID for one month, stopped on 11/09 and started back on Coumadin. LE dopplers positive for a DVT LLE. Switched on 11/09 to Enoxaprin 120 mg subq q 12 and increase Coumadin 10 mg PO daily. * Metoprolol Succinate 200 mg PO daily. (3) COPD (chronic obstructive pulmonary disease): Code(s): J44.9 - Chronic obstructive pulmonary disease, unspecified Status: Acute Assessment and Plan: * Antibiotics discontinued on 11/12/24. * Guaifenesin 1,200 mg PO BID. * Incentive Spirometer. * Ipratropium 0.5 mg Neb q 4 switched to Anoro Ellipta 1 pugg daily. * WBC improving from 15.7>14.1>13.4>8.8>7.4>6.8>7.0>8.5. * 11/09/24- ABG: pH 7.438, pC02 36.1, p02 59.9, 02 saturation 92.0. * Pulmonology consult, appreciate recommendations. (4) ZARAGOZA (dyspnea on exertion): Code(s): R06.09 - Other forms of dyspnea Status: Acute Assessment and Plan: * D dimer 1.70. Chest CTA negative. * LE dopplers:IMPRESSION: 1. No deep venous thrombosis within the right lower extremity. 2.. Venous thrombosis of the posterior tibial and peroneal veins in the left lower extremity. * Pulmonology consult, appreciate recommendations. * Better. Weaned to room air with Sa02 95%. * Apnea link tonight. (5) Deep vein thrombosis (DVT) of left lower extremity: Code(s): I82.402 - Acute embolism and thrombosis of unspecified deep veins of left lower extremity Status: Acute Assessment and Plan: * LE doppler: IMPRESSION: 1. No deep venous thrombosis within the right lower extremity. 2.. Venous thrombosis of the posterior tibial and peroneal veins in the left lower extremity. * Patient reported that she was previously on Coumadin. Patient switched to Eliquis a month ago. Patient reports compliance with Eliquis. * Stopped Eliquis on 11/09 and restarted Warfarin with Lovenox bridge. * Lovenox 120 mg subq q12. INR 1.4. Increased Warfarin 10 mg PO daily. * Monitor PT/INR daily. (6) Abdominal pain: Code(s): R10.9 - Unspecified abdominal pain Status: Acute Assessment and Plan: * Chest Abdomen/pelvis showed: IMPRESSION: Small left-sided pleural effusion with adjacent compressive atelectasis. Small pericardial effusion. Global enlargement of the bilateral ovaries and uterus, abnormal for a patient of this age. Fatty infiltration of an enlarged liver. * Abdominal US: IMPRESSION: Heterogeneous endometrial tissue which may indicate endometrial masses ,debris or hematoma. Further evaluation advised. Otherwise, normal pelvic ultrasound. * [employer] consult, appreciate recommendations. * MR pelvis with and without contrast ordered for further evaluation. (7) DM2 (diabetes mellitus, type 2): Qualifiers: Diabetes mellitus complication status: with circulatory complication Diabetes mellitus complication detail: with other circulatory complications Code(s): E11.9 - Type 2 diabetes mellitus without complications Status: Chronic Assessment and Plan: * Accuchecks, SSI, and hypoglycemic protocol. * HgbA1C 9.1% on 08/30/24. (8) Hypokalemia: Code(s): E87.6 - Hypokalemia Status: Acute Assessment and Plan: * Potassium 3.4. * Patient given Potassium Chloride 40 meq q4 x 1. * Trend labs. Plan This is a 69-year-old female with a history of morbid obesity with BMI 48, heart failure with reduced ejection fraction and combined diastolic dysfunction, COPD, prior tobacco dependence, [id number] diabetes mellitus, CKD stage 3, gout, paroxysmal AFib on Eliquis, hypertension, hyperlipidemia she presented to [facility] on 11/08/2024 with complaint of neck pain which had been going on for about 3 days. She denied any prior trauma or surgery. However that pain resolved and she developed left upper quadrant pain. She also reported shortness of breath to the ER physician however upon arrival to [place] she denied it albeit was in clear respiratory distress. She also admits to nausea but no vomiting. Her last bowel movement was about 2 days [employer] and she usually has bowel movements every 2-3 days, that is normal for her. She otherwise has not had any increase distension of her abdomen. She does not know if she has gained weight, she has swelling on her legs per reports that her usual. Evaluation at [facility] revealed atrial fibrillation rate controlled, tachypnea, blood pressure 119/75, saturating 93% on room air. WBC count 15.7, sodium 133, potassium 3.3, chloride 95, BUN 19, serum creatinine 1.50, glucose 428 than 339, lactic acid 2.7 then 3.1. She received a diuretic but did not urinate in response. Troponin 76.6>80.5>0.026. High limit of normal is 60.4. CRP 23, BNP 2285, EKG without any acute ischemia. A subsequent CT chest abdomen pelvis with contrast revealed a small left-sided pleural effusion with adjacent compressive atelectasis, small pericardial effusion, lobe enlargement of bilateral ovaries and uterus, fatty infiltration of an enlarged liver. She was subsequently transferred to [place] for further evaluation and treatment. Subjective Date/time seen: 11/15/24 09:59 Interval history: Patient lying in bed flat tolerating well to see if she is able to tolerate going to MRI. Niece at bedside. Patient denies chest pain, shortness of breath at rest, palpitations, headache, dizziness, nausea, or vomiting. Review of Systems Review of Systems: All systems reviewed & are unremarkable except as noted in HPI and below Exam Const: General: comfortable and no acute distress Resp: Effort & Inspection: normal respiratory effort Auscultation: crackles Cardio: Rhythm: abnormal rhythm regularly irregular (Afib 82.) GI: GI Palp: Yes Soft to palpation Auscultation: normal bowel sounds Neuro: Speech: normal speech Extrem: General: pedal edema bilaterally 2+ Psych: Mental Status: mental status grossly normal Affect: normal affect Objective Data Vital Signs Vital Signs: Vital Signs - 24 hr 11/14/24 10:00 11/14/24 10:44 11/14/24 10:55 Temperature Pulse Rate 88 Respiratory Rate Blood Pressure Pulse Oximetry Oxygen Delivery Room Air Room Air 11/14/24 12:00 11/14/24 12:00 11/14/24 12:00 Temperature 97.7 F Pulse Rate 93 82 Respiratory Rate 18 Blood Pressure 128/71 Pulse Oximetry 95 94 Oxygen Delivery Room Air 11/14/24 14:00 11/14/24 16:00 11/14/24 16:00 Temperature Pulse Rate 79 76 Respiratory Rate Blood Pressure Pulse Oximetry 91 Oxygen Delivery Room Air 11/14/24 16:00 11/14/24 18:00 11/14/24 19:31 Temperature 97.8 F 97.7 F Pulse Rate 51 L 89 84 Respiratory Rate 20 18 Blood Pressure 132/77 120/93 H Pulse Oximetry 94 93 Oxygen Delivery 11/14/24 20:00 11/14/24 20:00 11/14/24 22:00 Temperature Pulse Rate 78 76 Respiratory Rate Blood Pressure Pulse Oximetry Oxygen Delivery Room Air 11/14/24 22:05 11/14/24 23:22 11/15/24 00:00 Temperature 97.3 F L Pulse Rate 76 84 Respiratory Rate 18 Blood Pressure 137/67 Pulse Oximetry 94 91 Oxygen Delivery Room Air Room Air 11/15/24 00:00 11/15/24 02:00 11/15/24 04:00 Temperature Pulse Rate 73 77 Respiratory Rate Blood Pressure Pulse Oximetry Oxygen Delivery Room Air 11/15/24 04:00 11/15/24 04:00 11/15/24 06:00 Temperature 97.8 F Pulse Rate 84 69 74 Respiratory Rate 18 Blood Pressure 122/74 Pulse Oximetry 94 Oxygen Delivery 11/15/24 08:04 11/15/24 08:05 11/15/24 08:49 Temperature 98.9 F Pulse Rate 82 89 Respiratory Rate 20 Blood Pressure 129/83 Pulse Oximetry 93 92 Oxygen Delivery Room Air 11/15/24 08:49 Temperature Pulse Rate 89 Respiratory Rate Blood Pressure Pulse Oximetry Oxygen Delivery Intake/Output Intake/Output: Intake & Output 11/12/24 11/13/24 11/14/24 11/15/24 23:59 23:59 23:59 23:59 Intake Total 1620 1390 1320 120 Output Total 553 400 Balance 6166 267 6948 120 Meds/Results Medications: Active Medications Generic Name Dose Route Start Last Admin Trade Name Freq PRN Reason Stop Dose Admin Acetaminophen 650 mg 11/09/24 01:03 Acetaminophen 325 Mg Tablet PO Q4H PRN Mild Pain (1-3) or Fever Amlodipine Besylate 10 mg 11/10/24 09:00 11/15/24 08:49 Amlodipine Besylate 10 Mg Tablet PO 10 mg DAILY MASTER Administration Dextrose 12.5 gm 11/09/24 01:01 Dextrose 50% 25 Gm/50 Ml Syringe IV PUSH PRN PRN Hypoglycemia Protocol Diclofenac Sodium 1 applic 11/09/24 17:00 11/15/24 08:57 Diclofenac Sodium 1% 100 Gm Gel (*Bkc) TOPICAL Not Given TID MASTER Digoxin 125 mcg 11/09/24 09:00 11/15/24 08:49 Digoxin Tab 125 Mcg Tablet PO 125 mcg DAILY MSATER Administration Docusate Sodium 100 mg 11/10/24 09:55 11/12/24 09:34 Docusate Sodium 100 Mg Capsule PO 100 mg Q12H PRN Administration Constipation Empagliflozin 10 mg 11/14/24 09:00 11/15/24 08:48 Empagliflozin 10 Mg Tablet PO 10 mg DAILY MASTER Administration Enoxaparin Sodium 120 mg 11/09/24 17:00 11/15/24 05:23 Enoxaparin 120 Mg/0.8 Ml Syringe SUB-Q 120 mg Q12H MASTER Administration Furosemide 40 mg 11/09/24 09:00 11/15/24 08:56 Furosemide Inj 40 Mg/4 Ml Vial IV PUSH 40 mg BID MASTER Administration Gabapentin 300 mg 11/09/24 09:00 11/15/24 08:48 Gabapentin 300 Mg Capsule BY MOUTH 300 mg TID MASTER Administration Glucose 15 gm 11/09/24 01:01 Glucose Oral Gel 15 Gm Of Glucse In 37.5 Gm Tube PO PRN PRN Hypoglycemia Protocol Dextrose 1,000 mls @ 100 mls/hr 11/09/24 01:01 Dextrose 5% 1,000 Ml IVPB PRN PRN Hypoglycemia Protocol Insulin Aspart 2 - 5 units 11/09/24 08:00 11/15/24 08:55 Insulin Aspart (*Bkc) 100 Units/Ml SUB-Q Not Given TIDWM [facility] Protocol Insulin Aspart 1 - 2 units 11/09/24 21:00 11/14/24 20:24 Insulin Aspart (*Bkc) 100 Units/Ml SUB-Q 1 units HS MASTER Administration Protocol Metolazone 2.5 mg 11/13/24 08:30 11/15/24 08:49 Metolazone 2.5 Mg Tablet PO 2.5 mg DAILY@0830 [facility] Administration Metoprolol Succinate 200 mg 11/09/24 09:00 11/15/24 08:49 Metoprolol Succinate Ext Rel 100 Mg Tabcr PO 200 mg DAILY MASTER Administration Morphine Sulfate 2 mg 11/09/24 01:03 11/10/24 03:37 Morphine Sulfate (*Crx) 2 Mg/Ml Inj IV PUSH 2 mg Q4H PRN Administration Pain Rated 7-10 Polyethylene Glycol 17 gm 11/10/24 09:55 11/15/24 08:56 Polyethylene Glycol 3350 17 Gm Powd.Pack PO Not Given QAM MASTER Spironolactone 25 mg 11/12/24 09:00 11/15/24 08:56 Spironolactone 25 Mg Tablet PO 25 mg QAM [facility] Administration Tramadol HCl 25 mg 11/09/24 01:03 11/15/24 00:28 Tramadol Hcl (*Crx) 25 Mg Tablet PO 25 mg Q4H PRN Administration Pain Rated 4-6 Umeclidinium/Vilanterol 1 puff 11/14/24 11:25 11/15/24 08:05 Umeclidinium/Vilanterol 62.5-25 Mcg Ellipta INHALATION 1 puff DAILYRT [facility] Administration Warfarin Sodium 5 mg 11/10/24 17:00 11/14/24 17:03 Warfarin (*Pbkc) 5 Mg Tablet PO 5 mg DAILY@1700 [facility] Administration Warfarin Sodium 4 mg 11/15/24 17:00 Warfarin (*Pbkc) 4 Mg Tablet PO DAILY@1700 [facility] Radiology Results: ITS Impressions Chest CTA 11/09/24 11:12 Impression: No evidence of pulmonary embolus, aortic dissection, or aortic aneurysm. Minimal pericardial effusion. Small to moderate left pleural effusion and small right pleural effusion, with bilateral atelectatic change, left worse than right. Venous Doppler Study 11/09/24 16:04 IMPRESSION: 1. No deep venous thrombosis within the right lower extremity. 2.. Venous thrombosis of the posterior tibial and peroneal veins in the left lower extremity. Pelvis Ultrasound 11/09/24 16:35 IMPRESSION: Heterogeneous endometrial tissue which may indicate endometrial masses ,debris or hematoma. Further evaluation advised. Otherwise, normal pelvic ultrasound. Chest X-Ray 11/14/24 09:01 IMPRESSION: Cardiomegaly with cardiac decompensation and pulmonary edema. Superimposed pneumonia is highly suggestive more prominent in the lower lobes. Bilateral pleural effusion more on the right side Labs Labs: Laboratory Results - last 24 hr 11/14/24 11/14/24 11/14/24 11:34 16:23 20:21 WBC RBC Hgb Hct MCV MCH MCHC RDW Plt Count MPV Immature Gran % (Auto) Neut % (Auto) Lymph % (Auto) Randolph % (Auto) Eos % (Auto) Baso % (Auto) Lymph # (Auto) Randolph # (Auto) Eos # (Auto) Baso # (Auto) Abs Immat Gran (auto) Absolute Neuts (auto) Absolute Nucleated RBC Nucleated RBC % PT INR Sodium Potassium Chloride Carbon Dioxide Anion Gap BUN Creatinine Estim Creat Clear Calc Estimated GFR Glucose POC Capillary Glucose 234 H 186 H 221 H Calcium Magnesium Total Bilirubin AST ALT Alkaline Phosphatase Total Protein Albumin 11/15/24 11/15/24 04:35 07:33 WBC 8.5 RBC 4.80 Hgb 14.4 Hct 42.7 MCV 89.0 MCH 30.0 MCHC 33.7 RDW 14.0 Plt Count 393 H MPV 10.6 H Immature Gran % (Auto) 5.2 H Neut % (Auto) 63.4 Lymph % (Auto) 20.5 Randolph % (Auto) 7.9 Eos % (Auto) 1.8 Baso % (Auto) 1.2 Lymph # (Auto) 1.75 Randolph # (Auto) 0.7 H Eos # (Auto) 0.2 Baso # (Auto) 0.1 Abs Immat Gran (auto) 0.44 H Absolute Neuts (auto) 5.4 Absolute Nucleated RBC 0.000 Nucleated RBC % 0.0 PT 17.6 H INR 1.4 Sodium 132 L Potassium 3.4 Chloride 88 L Carbon Dioxide 33 H Anion Gap 11 BUN 25 H Creatinine 1.10 H Estim Creat Clear Calc 52 Estimated GFR 49 L Glucose 172 H POC Capillary Glucose 156 H Calcium 9.0 Magnesium 2.3 Total Bilirubin 0.6 AST 68 H ALT 82 H Alkaline Phosphatase 144 H Total Protein 7.0 Albumin 3.9 Quality VTE Prophylaxis VTE prophylaxis: pharmacologic ordered
[2024-11-15 11:44] LABS: Glucose Point of Care 220 mg/dl (65-105)
[2024-11-15] MEDS: INSULIN ASPART (*BKC) 100 UNITS/ML SUB-Q ×3 (12:40→20:33)
[2024-11-15] MEDS: DICLOFENAC SODIUM 1% 100 GM GEL (*BKC) 1 APPLIC TOPICAL ×2 (12:46→16:42)
[2024-11-15 15:59] LABS: Glucose Point of Care 214 mg/dl (65-105)
[2024-11-15] MEDS: WARFARIN (*PBKC) 10 MG TABLET PO (16:47)
[2024-11-15 20:28] LABS: Glucose Point of Care 278 mg/dl (65-105)
[2024-11-16] VITALS (12 sets, daily range): BP systolic 111–128; BP diastolic 66–76; PULSE 67–100; RESP 16–20; TEMP 36.4–36.5; O2SAT 90–96
[2024-11-16] MEDS: ENOXAPARIN 120 MG/0.8 ML SYRINGE SUB-Q ×2 (05:04→16:34)
[2024-11-16 05:42] LABS: Basophils Absolute Auto 0.1 K/mm3 (0.0-0.1); Basophils Percent Auto 1.4 % (0.2-1.2); Eosinophils Absolute Auto 0.1 K/mm3 (0-0.3); Hematocrit 41.8 % (37.0-47.0); Hemoglobin 14.1 g/dL (12.0-15.0); Immature Granulocyte Absolute 0.39 K/mm3 (0.00-0.031); Immature Granulocyte Percent A 5.6 % (0-0.5); Lymphocytes Absolute Auto 1.51 K/mm3 (0.9-3.2); Lymphocytes Percent Auto 21.8 % (18.3-44.2); Mean Corpuscular HGB Conc 33.7 g/dl (32-36); Mean Corpuscular Hemoglobin 30.1 pg (26-34); Mean Corpuscular Volume 89.3 fl (80-100); Mean Platelet Volume 10.3 fl (7.4-10.4); Monocytes Absolute Auto 0.6 K/mm3 (0.1-0.6); Monocytes Percent Auto 8.5 % (2.6-8.5); Neutrophils Absolute Auto 4.2 K/mm3 (1.3-6.7); Neutrophils Percent Auto 60.7 % (45.5-73.1); Platelet Count Result 366 k/mm3 (150-375); Red Blood Count 4.68 M/mm3 (4.2-5.4); Red Cell Distribution Width 13.9 % (11.5-14.5); White Blood Count 6.9 K/mm3 (4.5-10.0)
[2024-11-16 05:54] LABS: INR 1.4; Prothrombin Time 17.8 Seconds (11.1-14.7)
[2024-11-16 05:57] LABS: Alanine Aminotransferase 72 U/L (6-35); Albumin Level 3.7 g/dL (3.5-5.1); Alkaline Phosphatase 134 U/L (38-126); Anion Gap 9 mmol/L (4-12); Aspartate Amino Transferase 59 U/L (14-36); Bilirubin,Total 0.5 mg/dL (0.2-1.3); Blood Urea Nitrogen 32 mg/dL (7-17); Carbon Dioxide 35 mmol/L (22-30); Chloride 87 mmol/L (98-107); Estimated CRCL calculation 46 ml/min; Estimated Glomerular Filt Rate 43; Glucose 181 mg/dL (65-110); Magnesium 2.2 mg/dL (1.6-2.3); Potassium 3.3 mmol/L (3.4-5.0); Sodium 131 mmol/L (137-145)
[2024-11-16] MEDS: POTASSIUM CHLORIDE 20 MEQ ER TABLET 40 MEQ PO (06:46)
[2024-11-16] MEDS: UMECLIDINIUM/VILANTEROL 62.5-25 MCG ELLIPTA 1 PUFF INHALATION (07:27)
[2024-11-16 07:42] LABS: NT Pro B Type Natriuretic Pept 845 pg/mL (19.9-100)
[2024-11-16 07:47] LABS: Glucose Point of Care 193 mg/dl (65-105)
--- NOTE | 2024-11-16 08:00 | PM.PNCARD ---
Progress Note: A&P Assessment and Plan (1) CHF (congestive heart failure): Code(s): I50.9 - Heart failure, unspecified Status: Acute Assessment and Plan: Acute on chronic diastolic heart failure. Restrict fluid to 1.5 l/day. On Lasix 40 mg IV BID, Metolazone 2.5 mg daily and Spironolactone 25 mg daily, Jardiance 10 mg daily. Appears to be euvolemic. Stop Lasix IV and start Bumetanide 1 mg PO BID. Upon discharge she needs to f/u with her regular clin asst is Dr. Mason with [facility] in 1-2 weeks. (2) Deep vein thrombosis (DVT) of left lower extremity: Code(s): I82.402 - Acute embolism and thrombosis of unspecified deep veins of left lower extremity Status: Acute Assessment and Plan: On Lovenox. Was on Warfarin until a month ago it was changed to Eliquis. She is being restarted on Warfarin. (3) Afib: Qualifiers: Atrial fibrillation type: unspecified chronic Qualified Code(s): I48.20 - Chronic atrial fibrillation, unspecified Code(s): I48.91 - Unspecified atrial fibrillation Status: Chronic Assessment and Plan: Rate is controlled on Metoprolol and Digoxin. Anticoagulate will be covered with DVT treatment. (4) Hypertension: Code(s): I10 - Essential (primary) hypertension Status: Chronic Assessment and Plan: Stable. (5) COPD (chronic obstructive pulmonary disease): Code(s): J44.9 - Chronic obstructive pulmonary disease, unspecified Status: Acute Assessment and Plan: On CPAP and Nebs and antibiotics. Subjective Date/time seen: 11/16/24 08:00 Interval history: Reports sob improved. No chest pains. She would like to go home. Exam Const: General: cooperative, healthy appearing and comfortable Orientation/consciousness: oriented to person, oriented to place and oriented to time Resp: Auscultation: clear to auscultation bilaterally, crackles, no rales, no rhonchi, no wheezes and diminished lung sounds Cardio: Rate: regular rate Rhythm: abnormal rhythm Heart sounds: no murmurs Peripheral pulses: dorsalis pedis present Neuro: General: oriented to person, oriented to place and oriented to time Extrem: Right lower extremity: edema Left lower extremity: edema Other: Mod edema of both legs Objective Data Vital Signs Vital Signs: Vital Signs - 24 hr 11/15/24 08:04 11/15/24 08:05 11/15/24 08:49 Temperature 98.9 F Pulse Rate 82 89 Respiratory Rate 20 Blood Pressure 129/83 Pulse Oximetry 93 92 Oxygen Delivery Room Air Oxygen Flow Rate Fraction of Inspired Oxygen 11/15/24 08:49 11/15/24 10:00 11/15/24 16:00 Temperature Pulse Rate 89 84 67 Respiratory Rate Blood Pressure Pulse Oximetry Oxygen Delivery Oxygen Flow Rate Fraction of Inspired Oxygen 11/15/24 16:06 11/15/24 20:00 11/15/24 20:00 Temperature 97.7 F Pulse Rate 79 80 Respiratory Rate 21 H Blood Pressure 125/71 Pulse Oximetry 92 Oxygen Delivery Room Air Oxygen Flow Rate Fraction of Inspired Oxygen 11/15/24 22:01 11/16/24 00:00 11/16/24 00:00 Temperature 97.7 F Pulse Rate 77 80 83 Respiratory Rate 20 20 Blood Pressure 126/66 Pulse Oximetry 94 93 Oxygen Delivery Room Air Oxygen Flow Rate Fraction of Inspired Oxygen 21 11/16/24 04:00 11/16/24 07:27 11/16/24 07:56 Temperature 97.6 F Pulse Rate 72 74 Respiratory Rate 20 Blood Pressure 126/66 Pulse Oximetry 96 95 Oxygen Delivery Nasal Cannula Oxygen Flow Rate 2 Fraction of Inspired Oxygen Intake/Output Intake/Output: Intake & Output 11/13/24 11/14/24 11/15/24 11/16/24 23:59 23:59 23:59 23:59 Intake Total 1390 1320 520 150 Output Total 400 Balance 990 1320 520 150 Meds/Results Medications: Active Medications Generic Name Dose Route Start Last Admin Trade Name Freq PRN Reason Stop Dose Admin Acetaminophen 650 mg 11/09/24 01:03 Acetaminophen 325 Mg Tablet PO Q4H PRN Mild Pain (1-3) or Fever Amlodipine Besylate 10 mg 11/10/24 09:00 11/15/24 08:49 Amlodipine Besylate 10 Mg Tablet PO 10 mg DAILY MASTER Administration Dextrose 12.5 gm 11/09/24 01:01 Dextrose 50% 25 Gm/50 Ml Syringe IV PUSH PRN PRN Hypoglycemia Protocol Diclofenac Sodium 1 applic 11/09/24 17:00 11/15/24 16:42 Diclofenac Sodium 1% 100 Gm Gel (*Bkc) TOPICAL 1 applic TID MASTER Administration Digoxin 125 mcg 11/09/24 09:00 11/15/24 08:49 Digoxin Tab 125 Mcg Tablet PO 125 mcg DAILY MASTER Administration Docusate Sodium 100 mg 11/10/24 09:55 11/12/24 09:34 Docusate Sodium 100 Mg Capsule PO 100 mg Q12H PRN Administration Constipation Empagliflozin 10 mg 11/14/24 09:00 11/15/24 08:48 Empagliflozin 10 Mg Tablet PO 10 mg DAILY MASTER Administration Enoxaparin Sodium 120 mg 11/09/24 17:00 11/16/24 05:04 Enoxaparin 120 Mg/0.8 Ml Syringe SUB-Q 120 mg Q12H MASTER Administration Furosemide 40 mg 11/09/24 09:00 11/15/24 16:42 Furosemide Inj 40 Mg/4 Ml Vial IV PUSH 40 mg BID MASTER Administration Gabapentin 300 mg 11/09/24 09:00 11/15/24 16:42 Gabapentin 300 Mg Capsule BY MOUTH 300 mg TID MASTER Administration Glucose 15 gm 11/09/24 01:01 Glucose Oral Gel 15 Gm Of Glucse In 37.5 Gm Tube PO PRN PRN Hypoglycemia Protocol Dextrose 1,000 mls @ 100 mls/hr 11/09/24 01:01 Dextrose 5% 1,000 Ml IVPB PRN PRN Hypoglycemia Protocol Insulin Aspart 2 - 5 units 11/09/24 08:00 11/15/24 16:47 Insulin Aspart (*Bkc) 100 Units/Ml SUB-Q 2 units TIDWM MASTER Administration Protocol Insulin Aspart 1 - 2 units 11/09/24 21:00 11/15/24 20:33 Insulin Aspart (*Bkc) 100 Units/Ml SUB-Q 1 units HS MASTER Administration Protocol Metolazone 2.5 mg 11/13/24 08:30 11/15/24 08:49 Metolazone 2.5 Mg Tablet PO 2.5 mg DAILY@0830 MASTER Administration Metoprolol Succinate 200 mg 11/09/24 09:00 11/15/24 08:49 Metoprolol Succinate Ext Rel 100 Mg Tabcr PO 200 mg DAILY MASTER Administration Morphine Sulfate 2 mg 11/09/24 01:03 11/10/24 03:37 Morphine Sulfate (*Crx) 2 Mg/Ml Inj IV PUSH 2 mg Q4H PRN Administration Pain Rated 7-10 Polyethylene Glycol 17 gm 11/10/24 09:55 11/15/24 08:56 Polyethylene Glycol 3350 17 Gm Powd.Pack PO Not Given QAM [facility] Spironolactone 25 mg 11/12/24 09:00 11/15/24 08:56 Spironolactone 25 Mg Tablet PO 25 mg QAM MASTER Administration Tramadol HCl 25 mg 11/09/24 01:03 11/15/24 00:28 Tramadol Hcl (*Crx) 25 Mg Tablet PO 25 mg Q4H PRN Administration Pain Rated 4-6 Umeclidinium/Vilanterol 1 puff 11/14/24 11:25 11/16/24 07:27 Umeclidinium/Vilanterol 62.5-25 Mcg Ellipta INHALATION 1 puff DAILYRT [facility] Administration Warfarin Sodium 10 mg 11/15/24 17:00 11/15/24 16:47 Warfarin (*Pbkc) 10 Mg Tablet PO 10 mg DAILY@1700 [facility] Administration Radiology Results: ITS Impressions Chest CTA 11/09/24 11:12 Impression: No evidence of pulmonary embolus, aortic dissection, or aortic aneurysm. Minimal pericardial effusion. Small to moderate left pleural effusion and small right pleural effusion, with bilateral atelectatic change, left worse than right. Venous Doppler Study 11/09/24 16:04 IMPRESSION: 1. No deep venous thrombosis within the right lower extremity. 2.. Venous thrombosis of the posterior tibial and peroneal veins in the left lower extremity. Pelvis Ultrasound 11/09/24 16:35 IMPRESSION: Heterogeneous endometrial tissue which may indicate endometrial masses ,debris or hematoma. Further evaluation advised. Otherwise, normal pelvic ultrasound. Chest X-Ray 11/14/24 09:01 IMPRESSION: Cardiomegaly with cardiac decompensation and pulmonary edema. Superimposed pneumonia is highly suggestive more prominent in the lower lobes. Bilateral pleural effusion more on the right side Pelvis MRI 11/15/24 12:42 IMPRESSION: 1. Fibroid uterus including a 1.7 x 1.1 cm pedunculated submucosal fibroid extending into the endometrial canal. 2. 1 cm left ovarian cyst and multiple nabothian cysts at the cervix. Labs Labs: Laboratory Results - last 24 hr 11/15/24 11/15/24 11/15/24 11:39 15:56 20:19 PT INR Sodium Potassium Chloride Carbon Dioxide Anion Gap BUN Creatinine Estim Creat Clear Calc Estimated GFR Glucose POC Capillary Glucose 220 H 214 H 278 H Calcium Magnesium Total Bilirubin AST ALT Alkaline Phosphatase NT-Pro-B Natriuret Pep Total Protein Albumin 11/16/24 11/16/24 05:34 07:33 PT 17.8 H INR 1.4 Sodium 131 L Potassium 3.3 L Chloride 87 L Carbon Dioxide 35 H Anion Gap 9 BUN 32 H Creatinine 1.23 H Estim Creat Clear Calc 46 Estimated GFR 43 L Glucose 181 H POC Capillary Glucose 193 H Calcium 9.0 Magnesium 2.2 Total Bilirubin 0.5 AST 59 H ALT 72 H Alkaline Phosphatase 134 H NT-Pro-B Natriuret Pep 845 H Total Protein 7.0 Albumin 3.7
--- NOTE | 2024-11-16 08:06 | P.PNPL_ITS ---
Progress Note: A&P Assessment and Plan (1) Acute hypoxemic respiratory failure: Code(s): J96.01 - Acute respiratory failure with hypoxia Status: Acute Assessment and Plan: 11/12/24: Does not use oxygen at home, had increased O2 need yesterday, still on significant amounts with Airvo. She can have this weaned. she is using AirVo because this gives some help with wowrk of breathing and is better tolerated; patient gets anxious easily. No elevation of pCO2 so she did not need BiPAP. Cause for acute hypoxemic respiratory failure is not clear. Fluid overload from HFpEF, AFIB, She has small pleural effusions, CTA was negative for a pulmonary embolus but she does have acute thrombus in the left lower leg. Echocardiogram 04/06/2024: LVEF 45-50%, abnormal diastolic function, mildly in least increased left atrium, normal right atrium, normal right ventricular size and function, PASP 21. Echocardiogram 10/20/2024 with LVEF 60 65%, abnormal diastolic function, moderately enlarged left atrium, mildly enlarged right atrium, normal RV size and function, PASP 30. 11/14/2024: The patient tells me she is breathing normal. She has no cough, no phlegm production. No hemoptysis. She is afebrile. White blood cell count 7.0, creatinine 0.9. BNP improved from 2410 on 11/12/2019 5-1370 today. She is +990 mL yesterday. Cumulative she has +2.8 L since admission. Her weight today is 121.1 kg with an admission weight of 122.4 kg. She tells me her lower extremity edema has improved, she is able to lay flat more comfortably. Chest x-ray today with continued bilateral pleural effusions and pulmonary vascular congestion unchanged from 11/11/2024. When I enter the room the patient was on 3 L nasal cannula saturations 96 to 99%. I turned her to room air and after 16 minutes her saturations were 94 to 95%. Plan: etiology of acute hypoxemic respiratory failure like related to fluid overload from HFpEF and AFIB. She has responded to diuretics and states that she is clinically better, can lay flat now, lower extremity edema has improved, BNP has improved and oxygenation has improved and now on room air. Agree with as aggressive diuresis as tolerated by her cardiac and renal systems. Currently on Lasix 40 IV b.i.d., metolazone 2.5 mg p.o. q.day, Spironolactone 25 mg q.a.m., Jardiance 10 q.day, metoprolol 200 q.day, digoxin 125 q.day per Cardiology and hospitalist teams. Goal saturation 90-94% with rest and with activity. I will perform overnight oximetry on room air to assess for nocturnal hypoxemia. Later in the day walk 46 ft with physical therapy on room air. 11/15/24: Patient tells me she is breathing at her baseline. She has no cough, phlegm production or hemoptysis. She is afebrile. White blood cell count 8.5, creatinine 1.10, weight is 118.4 kg. Currently patient is on room air with saturations 93%. Patient had an overnight oximetry on room air with recording duration of 7 hours and 28 minutes. Average saturation 91%. Low saturation 80%. Time with saturation less than or equal to 88% was 24 minutes. Oxygen desaturation index 45.9. Plan: Agree with as aggressive diuresis as tolerated by her cardiac and renal systems per cardiology and hospitalist teams. Patient with hypoxemia at night on room air and will perform overnight oximetry on 2 L tonight. 11/16/24: Patient breathing at her baseline. States her dyspnea on exertion is better than it has been prior to her current illness. Creatinine 1.23. BNP 845. Weight 114.7. Patient had an overnight oximetry ordered on 2 L. patient tells me that 2 L was applied at midnight. Recording duration 7 hours and 32 minutes. Average saturation 93%. Low saturation 84%. Time with saturation less than or equal to 88% was 13 minutes. Oxygen desaturation index 26.7. After midnight there were no significant desaturations below 88%. Plan: From a pulmonary perspective patient is ready to be discharged on these pulmonary medications: Anoro Ellipta 62.5-25 at 1 puff q.day Rescue albuterol 2 puffs q.4 hours p.r.n. shortness of breath or wheezing When she naps or sleeps oxygen 2 L. Home O2 assessment on the day of discharge. Diuretics and cardiac medicines per Cardiology and hospitalist teams. Current diuretics include Lasix 40 IV b.i.d., Zaroxolyn 2.5 q.day, spironolactone 25 q.day. Anticoagulation per Cardiology and hospitalist teams. Follow-up in the Pulmonary Clinic in 3-4 weeks. I gave the patient our business card and informed our resaw carriage operator. Patient will need outpatient PFTs and split night sleep study when she is clinically stable. Discussed with Dr. Meyer, will sign off, call with questions. (2) Reactive airway disease: Code(s): J45.909 - Unspecified asthma, uncomplicated Status: Acute Assessment and Plan: 11/14/24: patient carries a diagnosis of COPD. She is a never smoker but exposed to secondhand smoke from her father and from her up until her divorce 20 years ago. PFTs on 03/19/2021 with normal spirometry, FEV1 103%, ratio 86%, total lung capacity 117% predicted with hyperinflation and mildly decreased DLCO that normalized when adjusted for alveolar volume. CT scan of the chest does not show emphysematous changes. 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 Patient denies ever having history of asthma. She was placed on breztri and rescue albuterol. One of her clinic notes said she is not using the Breztri regularly. She did not have any occupational exposure. I do not believe the patient has COPD given her PFTs and CT scan. She does have a bronchodilator response and states that she clinically has a benefit from bronchodilators. I have remove COPD from her medical history. Plan: I will discontinue her duonebs and change her to Anoro Ellipta 1 puff q.day. I will not prescribe her an inhaled corticosteroid. continue guaifenesin 1200 mg p.o. q.12 hours. Goal saturation 90-94% With rest and with activity. I will perform an overnight oximetry on room air to assess nocturnal oxygen needs. 11/15/24: Patient breathing at her baseline. No wheezing on exam. She is not coughing up any phlegm. Plan: continue Anoro Ellipta 1 puff q.day. I will discontinue guaifenesin as she is making no phlegm. 11/16/24: Breathing at her baseline. No wheezing. No cough no phlegm. Plan: Continue Anoro Ellipta 1 puff q.day (3) Deep vein thrombosis (DVT) of left lower extremity: Code(s): I82.402 - Acute embolism and thrombosis of unspecified deep veins of left lower extremity Status: Acute Assessment and Plan: 11/09/24: lower extremity Dopplers: FINDINGS: The visualized portions of right common femoral vein, profunda (deep) femoral vein, femoral vein, popliteal vein, peroneal veins, posterior tibial veins, and greater saphenous vein outflow are patent. The visualized portions of left common femoral vein, profunda femoral vein, femoral vein, popliteal vein and greater saphenous vein outflow are patent. Noncompressibility and absence of flow are identified within the posterior tibial and peroneal veins in the left lower extremity. 11/11/24: Eliquis stopped, full dose Lovenox started 120 mg subQ Q 12 hours. She failed Eliquis out patient. 11/14/24: Patient states her Left lower extremity swelling has improved. Plan: Patient is being converted to warfarin, dosing per hospitalist team. (4) Hypersomnia: Code(s): G47.10 - Hypersomnia, unspecified Status: Acute Assessment and Plan: 11/14/24: Regarding the possibility of untreated obstructive sleep apnea 2-3 years ago she was in [facility] for procedure and the healthcare team said that she stops breathing in her sleep and should be evaluated for sleep apnea as an outpatient. She never followed up on this recommendation. She has daytime hypersomnia. Her BMI is 47.3. She does snore. Her niece is in the room who has watched her nap before and has noticed no witnessed apneas. TSH on 08/30/2024 2.22, normal. ABG on 6 L 7.44/36/60 without evidence of hypercarbic respiratory failure. Plan: perform overnight oximetry on room air to assess for nocturnal hypoxemia. Patient will need an outpatient split night sleep study. 11/15/24: Patient had an overnight oximetry on room air with recording duration of 7 hours and 28 minutes. Average saturation 91%. Low saturation 80%. Time with saturation less than or equal to 88% was 24 minutes. Oxygen desaturation index 45.9. Plan: Overnight oximetry on 2 L. 11/16/24: Patient had an overnight oximetry ordered on 2 L. patient tells me that 2 L was applied at midnight. Recording duration 7 hours and 32 minutes. Average saturation 93%. Low saturation 84%. Time with saturation less than or equal to 88% was 13 minutes. Oxygen desaturation index 26.7. After midnight there were no significant desaturations below 88%. Plan: 2 L when she sleeps provides adequate oxygenation. Patient will need an outpatient split night sleep study. Subjective Date/time seen: 11/16/24 08:06 Interval history: 11/09/24, new consult; Columba Voss is a 69-year-old female with atrial fib for the last 5 years has been well managed with Coumadin. She carries a diagnosis of COPD on no home oxygen, uses Breztri and albuterol. About a month ago, her wax bleacher switched her to a Eliquis. Night before last, she developed neck pain, very uncomfortable, worse when she was sleeping in bed so she got up and slept in the recliner. The next day, the pain in the neck had moved down to her anterior chest and to left ribs, wrapping around the chest. She was increasingly short of breath, presented at [facility] complaining of LUQ pain. She had nausea, no vomiting, no appetite for a week before arrival. She was in atrial fibrillation, 93% on room air. WBC was high 15.7. Lactic acid 2.7, She had a small left pleural effusion. She was transferred to [place], now in IMU, has increased respiratory distress with increased requirement of oxygen up to 9 L a minute. Testing today 11/09 : Venous thrombosis of the posterior tibial and peroneal veins in the left lower extremity. CTA showed no PE; moderate LEft pleural effusion and left atelectasis. She is already on Eliquis 5 mg bid for atrial fib. She is more short of breath today, now on 9 L. She had decreased appetite before admission, increased welling in both legs. 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 Has not worked for years. She had no occupational exposure to vapors, dusts, fumes, asbestos. PMH: Decreased LV function, diastolic dysfunction, (+) home sleep test not on treatment. COPD. No tobacco. Lots of second hand tobacco per family. DM on insulin, CKD stage 3. 11/10/24; follow up; She feels better, now having her AirVo weaned. FiO2 was 75%, now 60%. She sat on the side of the bed for an hour and half, did not want to get into the chair. 11/12/24; Alert, feels better. She is on lower O2, AirVo 40 L/min and 48% FiO2. Yesterday, she had an ABG on BiPAP 12/6 and 100% pH 7.41, pCO2 42.8, PO2 82.4, Aa gradient 273 which is high and shows a decrease in oxygenation, saturation 96.2%. She does not recall having a difficult time yesterday. She does feel better using Airvo, on much lower oxygen flow, 48% & 40 L/min compared to 100% with BiPAP 12/6. She is not coughing up sputum. Weight is down a small amount, 124.5 kg, at highest was 127.2 kg 2 days ago; Admission weight 122.4 so still above admission weight. She is having an episode of diastolic failure, getting fluid restricted and diuresis with Lasix 40 mg IV b.i.dy and spironolactone 25 mg po daily. BUN today 24, creat 0.99. CXR 11/11 : Moderate bilateral pleural effusions are significantly increased, with moderate pulmonary edema and bibasilar atelectatic change. 11/14/2024: The patient tells me she is breathing normal. She has no cough, no phlegm production. No hemoptysis. She is afebrile. White blood cell count 7.0, creatinine 0.9. BNP improved from 2410 on 11/12/2019 5-1370 today. She is +990 mL yesterday. Cumulative she has +2.8 L since admission. Her weight today is 121.1 kg with an admission weight of 122.4 kg. She tells me her lower extremity edema has improved, she is able to lay flat more comfortably. Chest x-ray today with continued bilateral pleural effusions and pulmonary vascular congestion unchanged from 11/11/2024. When I enter the room the patient was on 3 L nasal cannula saturations 96 to 99%. I turned her to room air and after 16 minutes her saturations were 94 to 95%. Regarding the possibility of untreated obstructive sleep apnea 2-3 years ago she was in [facility] for procedure and the healthcare team said that she stops breathing in her sleep and should be evaluated for sleep apnea as an outpatient. She never followed up on this recommendation. She does snore. Her niece is in the room who has watched her nap before and has noticed no witnessed apneas. Later in the day walk 46 ft with physical therapy on room air. 11/15/24: Patient tells me she is breathing at her baseline. She has no cough, phlegm production or hemoptysis. She is afebrile. White blood cell count 8.5, creatinine 1.10, weight is 118.4 kg. Currently patient is on room air with saturations 93%. Patient had an overnight oximetry on room air with recording duration of 7 hours and 28 minutes. Average saturation 91%. Low saturation 80%. Time with saturation less than or equal to 88% was 24 minutes. Oxygen desaturation index 45.9. 11/16/24: Patient breathing at her baseline. States her dyspnea on exertion is better than it has been prior to her current illness. Creatinine 1.23. BNP 845. Weight 114.7. Patient had an overnight oximetry ordered on 2 L. patient tells me that 2 L was applied at midnight. Recording duration 7 hours and 32 minutes. Average saturation 93%. Low saturation 84%. Time with saturation less than or equal to 88% was 13 minutes. Oxygen desaturation index 26.7. After midnight there were no significant desaturations below 88%. DATA 11/09/24 LE Dopplers; EXAMINATION: US venous doppler LE BI DATE: 11/09/2024 16:02 COMPARISON: 08/31/2024 and 05/17/2021. FINDINGS: The visualized portions of right common femoral vein, profunda (deep) femoral vein, femoral vein, popliteal vein, peroneal veins, posterior tibial veins, and greater saphenous vein outflow are patent. The visualized portions of left common femoral vein, profunda femoral vein, femoral vein, popliteal vein and greater saphenous vein outflow are patent. Noncompressibility and absence of flow are identified within the posterior tibial and peroneal veins in the left lower extremity. * 11/09/24 CTA -No evidence of pulmonary embolus, aortic dissection, or aortic aneurysm. Minimal pericardial effusion. Small to moderate left pleural effusion and small right pleural effusion, with bilateral atelectatic change, left worse than right. 03/19/2021: This is a pulmonary function test with pre and post-bronchodilator spirometry, plethysmography and diffusing capacity. Findings: Spirometry: the contour the inspiratory and expiratory flow tracing are normal. The pre bronchodilator FVC is 2.56 L, 96% predicted. The pre bronchodilator FEV1 is 2.20 L, 103% predicted. The pre bronchodilator FEV1: FVC ratio is 86%. The post bronchodilator FVC is 2.92 L, representing a 14% increase. The post bronchodilator FEV1 is 2.34 L, representing a 6% increase. The post bronchodilator FEV1: FVC ratio is 80%. Plethysmography: The total lung capacity is 5.40 L, 117% predicted. The functional residual capacity is 2.93 L, 192% predicted. The residual volume is 2.68 L, 146% predicted. The residual volume: Total lung capacity ratio is 50%. Diffusing capacity: The diffusing capacity unadjusted for hemoglobin and carboxyhemoglobin is 19.7, 71% predicted. The diffusing capacity adjusted for alveolar volume is 4.76, 132% predicted. Impression: The spirometry is normal without evidence of an obstructive abnormality. There is significant improvement after inhaling a single dose of albuterol. The increase in residual volume to total lung volume ratio is consistent with hyperinflation. The diffusing capacity unadjusted for hemoglobin and carboxyhemoglobin is mildly decreased and normalizes when adjusted for alveolar volume. There are no prior studies for comparison Review of Systems Review of Systems: All systems reviewed & are unremarkable except as noted in HPI and below Constitutional: Constitutional: Reports no additional constitutional complaints Eyes: Eyes: Reports no additional eye complaints ENT: Reports system reviewed and no additional complaints, except as documented Cardiovascular: Cardiovascular: Reports no additional cardiovascular complaints Respiratory: Respiratory: Reports no additional respiratory complaints Gastrointestinal: Gastrointestinal: Reports no additional gastrointestinal complaints Musculoskeletal: Musculoskeletal: Reports no additional musculoskeletal complaints Neurologic: Reports system reviewed and no additional complaints, except as documented Psychiatric: Psychiatric: Reports no additional psychiatric complaints Endocrine: Endocrine: Reports no additional endocrine complaints Hematologic/Lymphatic: Hematologic/Lymphatic: Reports no additional hematologic/lymphatic complaints Allergic/Immunologic: Allergic/Immunologic: Reports no additional allergic/immunologic complaints Exam Const: General: cooperative, healthy appearing and comfortable Orientation/consciousness: oriented to person, oriented to place and oriented to time HENMT: Head: normal to inspection Ears: hearing grossly normal bilaterally Eyes: General: appearance normal, both eyes and all related structures Neck: Neck: normal visual inspection Chest: Chest palpation & inspection: normal inspection of the chest Resp: Effort & Inspection: normal respiratory effort and able to speak in complete sentences Auscultation: no crackles, no rales, no rhonchi, no wheezes and lung sounds not diminished Other: no crackles today Cardio: Jugular venous distension: no JVD GI: Inspection: normal to inspection Skin: General skin exam: normal color Neuro: General: oriented to person, oriented to place and oriented to time Extrem: General: normal to inspection and edema (improved, trace) Psych: Appearance: grossly normal Objective Data Vital Signs Vital Signs: Vital Signs - 24 hr 11/15/24 08:49 11/15/24 08:49 11/15/24 10:00 Temperature Pulse Rate 89 89 84 Respiratory Rate Blood Pressure Pulse Oximetry Oxygen Delivery Oxygen Flow Rate Fraction of Inspired Oxygen 11/15/24 16:00 11/15/24 16:06 11/15/24 20:00 Temperature 36.5 C Pulse Rate 67 79 Respiratory Rate 21 H Blood Pressure 125/71 Pulse Oximetry 92 Oxygen Delivery Room Air Oxygen Flow Rate Fraction of Inspired Oxygen 11/15/24 20:00 11/15/24 22:01 11/16/24 00:00 Temperature 36.5 C Pulse Rate 80 77 80 Respiratory Rate 20 20 Blood Pressure 126/66 Pulse Oximetry 94 93 Oxygen Delivery Room Air Oxygen Flow Rate Fraction of Inspired Oxygen 21 11/16/24 00:00 11/16/24 04:00 11/16/24 07:27 Temperature Pulse Rate 83 72 Respiratory Rate Blood Pressure Pulse Oximetry 96 Oxygen Delivery Nasal Cannula Oxygen Flow Rate 2 Fraction of Inspired Oxygen 11/16/24 07:56 Temperature 36.4 C Pulse Rate 74 Respiratory Rate 20 Blood Pressure 126/66 Pulse Oximetry 95 Oxygen Delivery Oxygen Flow Rate Fraction of Inspired Oxygen Intake/Output Intake/Output: Intake & Output 11/13/24 11/14/24 11/15/24 11/16/24 23:59 23:59 23:59 23:59 Intake Total 1390 1320 520 150 Output Total 400 Balance 990 1320 520 150 Meds/Results Medications: Active Medications Generic Name Dose Route Start Last Admin Trade Name Freq PRN Reason Stop Dose Admin Acetaminophen 650 mg 11/09/24 01:03 Acetaminophen 325 Mg Tablet PO Q4H PRN Mild Pain (1-3) or Fever Amlodipine Besylate 10 mg 11/10/24 09:00 11/15/24 08:49 Amlodipine Besylate 10 Mg Tablet PO 10 mg DAILY MASTER Administration Bumetanide 1 mg 11/16/24 09:00 Bumetanide 1 Mg Tablet PO BID MASTER Dextrose 12.5 gm 11/09/24 01:01 Dextrose 50% 25 Gm/50 Ml Syringe IV PUSH PRN PRN Hypoglycemia Protocol Diclofenac Sodium 1 applic 11/09/24 17:00 11/15/24 16:42 Diclofenac Sodium 1% 100 Gm Gel (*Bkc) TOPICAL 1 applic TID MASTER Administration Digoxin 125 mcg 11/09/24 09:00 11/15/24 08:49 Digoxin Tab 125 Mcg Tablet PO 125 mcg DAILY MASTER Administration Docusate Sodium 100 mg 11/10/24 09:55 11/12/24 09:34 Docusate Sodium 100 Mg Capsule PO 100 mg Q12H PRN Administration Constipation Empagliflozin 10 mg 11/14/24 09:00 11/15/24 08:48 Empagliflozin 10 Mg Tablet PO 10 mg DAILY MASTER Administration Enoxaparin Sodium 120 mg 11/09/24 17:00 11/16/24 05:04 Enoxaparin 120 Mg/0.8 Ml Syringe SUB-Q 120 mg Q12H MASTER Administration Gabapentin 300 mg 11/09/24 09:00 11/15/24 16:42 Gabapentin 300 Mg Capsule BY MOUTH 300 mg TID MASTER Administration Glucose 15 gm 11/09/24 01:01 Glucose Oral Gel 15 Gm Of Glucse In 37.5 Gm Tube PO PRN PRN Hypoglycemia Protocol Dextrose 1,000 mls @ 100 mls/hr 11/09/24 01:01 Dextrose 5% 1,000 Ml IVPB PRN PRN Hypoglycemia Protocol Insulin Aspart 2 - 5 units 11/09/24 08:00 11/15/24 16:47 Insulin Aspart (*Bkc) 100 Units/Ml SUB-Q 2 units TIDWM MASTER Administration Protocol Insulin Aspart 1 - 2 units 11/09/24 21:00 11/15/24 20:33 Insulin Aspart (*Bkc) 100 Units/Ml SUB-Q 1 units HS [facility] Administration Protocol Metoprolol Succinate 200 mg 11/09/24 09:00 11/15/24 08:49 Metoprolol Succinate Ext Rel 100 Mg Tabcr PO 200 mg DAILY [facility] Administration Morphine Sulfate 2 mg 11/09/24 01:03 11/10/24 03:37 Morphine Sulfate (*Crx) 2 Mg/Ml Inj IV PUSH 2 mg Q4H PRN Administration Pain Rated 7-10 Polyethylene Glycol 17 gm 11/10/24 09:55 11/15/24 08:56 Polyethylene Glycol 3350 17 Gm Powd.Pack PO [facility] Spironolactone 25 mg 11/12/24 09:00 11/15/24 08:56 Spironolactone 25 Mg Tablet PO 25 mg QAM [facility] Administration Tramadol HCl 25 mg 11/09/24 01:03 11/15/24 00:28 Tramadol Hcl (*Crx) 25 Mg Tablet PO 25 mg Q4H PRN Administration Pain Rated 4-6 Umeclidinium/Vilanterol 1 puff 11/14/24 11:25 11/16/24 07:27 Umeclidinium/Vilanterol 62.5-25 Mcg Ellipta INHALATION 1 puff DAILYRT [facility] Administration Warfarin Sodium 10 mg 11/15/24 17:00 11/15/24 16:47 Warfarin (*Pbkc) 10 Mg Tablet PO 10 mg DAILY@1700 [facility] Administration Radiology Results: ITS Impressions Chest CTA 11/09/24 11:12 Impression: No evidence of pulmonary embolus, aortic dissection, or aortic aneurysm. Minimal pericardial effusion. Small to moderate left pleural effusion and small right pleural effusion, with bilateral atelectatic change, left worse than right. Venous Doppler Study 11/09/24 16:04 IMPRESSION: 1. No deep venous thrombosis within the right lower extremity. 2.. Venous thrombosis of the posterior tibial and peroneal veins in the left lower extremity. Pelvis Ultrasound 11/09/24 16:35 IMPRESSION: Heterogeneous endometrial tissue which may indicate endometrial masses ,debris or hematoma. Further evaluation advised. Otherwise, normal pelvic ultrasound. Chest X-Ray 11/14/24 09:01 IMPRESSION: Cardiomegaly with cardiac decompensation and pulmonary edema. Superimposed pneumonia is highly suggestive more prominent in the lower lobes. Bilateral pleural effusion more on the right side Pelvis MRI 11/15/24 12:42 IMPRESSION: 1. Fibroid uterus including a 1.7 x 1.1 cm pedunculated submucosal fibroid extending into the endometrial canal. 2. 1 cm left ovarian cyst and multiple nabothian cysts at the cervix. Labs Labs: Laboratory Results - last 24 hr 11/15/24 11/15/24 11/15/24 11:39 15:56 20:19 PT INR Sodium Potassium Chloride Carbon Dioxide Anion Gap BUN Creatinine Estim Creat Clear Calc Estimated GFR Glucose POC Capillary Glucose 220 H 214 H 278 H Calcium Magnesium Total Bilirubin AST ALT Alkaline Phosphatase NT-Pro-B Natriuret Pep Total Protein Albumin 11/16/24 11/16/24 05:34 07:33 PT 17.8 H INR 1.4 Sodium 131 L Potassium 3.3 L Chloride 87 L Carbon Dioxide 35 H Anion Gap 9 BUN 32 H Creatinine 1.23 H Estim Creat Clear Calc 46 Estimated GFR 43 L Glucose 181 H POC Capillary Glucose 193 H Calcium 9.0 Magnesium 2.2 Total Bilirubin 0.5 AST 59 H ALT 72 H Alkaline Phosphatase 134 H NT-Pro-B Natriuret Pep 845 H Total Protein 7.0 Albumin 3.7
[2024-11-16] MEDS: METOPROLOL SUCCINATE EXT REL 100 MG TABCR 200 MG PO (08:38)
[2024-11-16] MEDS: polyethylene glycoL 3350 17 GM POWD.PACK PO (08:38)
[2024-11-16] MEDS: amLODIPine BESYLATE 10 MG TABLET PO (08:39)
[2024-11-16] MEDS: EMPAGLIFLOZIN 10 MG TABLET PO (08:39)
[2024-11-16] MEDS: SPIRONOLACTONE 25 MG TABLET PO (08:39)
[2024-11-16] MEDS: DIGOXIN TAB 125 MCG TABLET PO (08:39)
[2024-11-16] MEDS: GABAPENTIN 300 MG CAPSULE BY MOUTH ×2 (08:39→16:34)
[2024-11-16] MEDS: DICLOFENAC SODIUM 1% 100 GM GEL (*BKC) 1 APPLIC TOPICAL ×2 (08:40→16:34)
[2024-11-16] MEDS: BUMETANIDE 1 MG TABLET PO ×2 (08:40→16:34)
[2024-11-16 10:53] LABS: Platelet Estimate Adequate (Adequate)
[2024-11-16 10:54] LABS: Atypical Lymphocytes Present; Schistocytes None Seen
[2024-11-16] MEDS: INSULIN ASPART (*BKC) 100 UNITS/ML SUB-Q ×2 (11:19→20:02)
[2024-11-16 11:55] LABS: Glucose Point of Care 254 mg/dl (65-105)
--- NOTE | 2024-11-16 15:17 | P.PNIM_ITS ---
Progress Note: A&P Assessment and Plan (1) Heart failure with reduced ejection fraction: Code(s): I50.20 - Unspecified systolic (congestive) heart failure Status: Acute Assessment and Plan: * BNP 2285>1870>2410>1370 * 11/11/24 Patient had worsening shortness of breath overnight. Patient immediately placed on BiPAP. Improved symptomatology. She has significant wet crackles diffusely. No wheezing, no stridor. Stat chest x-ray demonstrates severe pulmonary edema. Lower extremities still with 2+ pitting edema bilaterally below the knees. Daily weights and urine output unclear per the nursing team as she has been going in her depends. ABG pCO2 43.8, pH 7.413. Given Lasix 80 mg IV x1. * Echocardiogram: Summary 1. Complete two-dimensional, color flow and Doppler transthoracic echocardiogram is performed. 2. Left ventricular chamber dimension is normal. 3. Left ventricular systolic function is normal, estimated at 60-65%. 4. The left ventricular diastolic function is abnormal. 5. E/e' 16 is elevated. 6. Atrial fibrillation. 7. Left atrial chamber dimension is moderately enlarged. 8. Right atrial chamber dimension is mildly enlarged. 9. There is mild aortic valve sclerosis. 10. There is trace mitral valve regurgitation. 11. No pulmonary hypertension, estimated pulmonary arterial systolic pressure is 30 mmHg. 12. There is trivial pericardial effusion. * Furosemide 40 mg ivp BID. * Metolazone 2.5 mg PO at 8:30 am. * Spironolactone 25 mg PO qam. * Jardiance 10 mg PO daily added. * Daily weights. * Strict I&O's. * Fluid restriction 1500 ml. * Cardiology consult, appreciate recommendations. (2) Paroxysmal atrial fibrillation: Code(s): I48.0 - Paroxysmal atrial fibrillation Status: Chronic Assessment and Plan: * Patient was taking Eliquis 5 mg PO BID for one month, stopped on 11/09 and started back on Coumadin. LE dopplers positive for a DVT LLE. Switched on 11/09 to Enoxaprin 120 mg subq q 12 and increase Coumadin 10 mg PO daily. * Metoprolol Succinate 200 mg PO daily. * awaiting INR therapeutic range (3) COPD (chronic obstructive pulmonary disease): Code(s): J44.9 - Chronic obstructive pulmonary disease, unspecified Status: Inactive Assessment and Plan: * Antibiotics discontinued on 11/12/24. * Guaifenesin 1,200 mg PO BID. * Incentive Spirometer. * Ipratropium 0.5 mg Neb q 4 switched to Anoro Ellipta 1 pugg daily. * WBC improving from 15.7>14.1>13.4>8.8>7.4>6.8>7.0>8.5. * 11/09/24- ABG: pH 7.438, pC02 36.1, p02 59.9, 02 saturation 92.0. * Pulmonology consult, appreciate recommendations. (4) ZARAGOZA (dyspnea on exertion): Code(s): R06.09 - Other forms of dyspnea Status: Acute Assessment and Plan: * D dimer 1.70. Chest CTA negative. * LE dopplers:IMPRESSION: 1. No deep venous thrombosis within the right lower extremity. 2.. Venous thrombosis of the posterior tibial and peroneal veins in the left lower extremity. * Pulmonology consult, appreciate recommendations. * Better. Weaned to room air with Sa02 95%. * Apnea link tonight. (5) Deep vein thrombosis (DVT) of left lower extremity: Code(s): I82.402 - Acute embolism and thrombosis of unspecified deep veins of left lower extremity Status: Acute Assessment and Plan: * LE doppler: IMPRESSION: 1. No deep venous thrombosis within the right lower extremity. 2.. Venous thrombosis of the posterior tibial and peroneal veins in the left lower extremity. * Patient reported that she was previously on Coumadin. Patient switched to Eliquis a month ago. Patient reports compliance with Eliquis. * Stopped Eliquis on 11/09 and restarted Warfarin with Lovenox bridge. * Lovenox 120 mg subq q12. INR 1.4. Increased Warfarin 10 mg PO daily. * Monitor PT/INR daily. (6) Abdominal pain: Code(s): R10.9 - Unspecified abdominal pain Status: Acute Assessment and Plan: * Chest Abdomen/pelvis showed: IMPRESSION: Small left-sided pleural effusion with adjacent compressive atelectasis. Small pericardial effusion. Global enlargement of the bilateral ovaries and uterus, abnormal for a patient of this age. Fatty infiltration of an enlarged liver. * Abdominal US: IMPRESSION: Heterogeneous endometrial tissue which may indicate endometrial masses ,debris or hematoma. Further evaluation advised. Otherwise, normal pelvic ultrasound. * DEMO COORDINATOR consult, appreciate recommendations. * MR pelvis with and without contrast ordered for further evaluation. (7) DM2 (diabetes mellitus, type 2): Qualifiers: Diabetes mellitus complication status: with circulatory complication Diabetes mellitus complication detail: with other circulatory complications Code(s): E11.9 - Type 2 diabetes mellitus without complications Status: Chronic Assessment and Plan: * Accuchecks, SSI, and hypoglycemic protocol. * HgbA1C 9.1% on 08/30/24. (8) Hypokalemia: Code(s): E87.6 - Hypokalemia Status: Acute Assessment and Plan: * Potassium 3.4. * Patient given Potassium Chloride 40 meq q4 x 1. * Trend labs. Plan DVT prophylaxis On Full dose Lovenox awaiting INR therapeutic range for discharge Subjective Date/time seen: 11/16/24 15:17 Interval history: Patient comfortable at bedside INR 1.4 today Review of Systems Review of Systems: All systems reviewed & are unremarkable except as noted in HPI and below Exam Const: General: comfortable, no acute distress and uncomfortable Other: Acute distress due to left upper quadrant pain which is slightly reproducible and shortness of breath. HENMT: Mouth: Yes moist mucous membranes Eyes: Pupils: Equal, round and reactive pupils present Neck: Neck: supple Resp: Effort & Inspection: normal respiratory effort Auscultation: crackles, wheezes expiratory wheezes and diminished lung sounds Other: Tachypneic at times Cardio: Rate: tachycardic Rhythm: abnormal rhythm regularly irregular (Afib 82.) Heart sounds: no gallops, no murmurs and no rubs Other: Telemetry- SR 81 GI: Auscultation: normal bowel sounds Other: Slightly distant, reported to be normal per the patient Neuro: Cranial nerves: Yes Equal, round and reactive pupils present Speech: normal speech Motor exam (neuro): 5/5 motor strength present throughout Sensory Exam: normal sensation Extrem: General: edema bilateral (2+) and pedal edema bilaterally 2+ Other: 2+ pitting edema of the bilateral lower extremities up to the knees Psych: Mental Status: mental status grossly normal Affect: normal affect Objective Data Vital Signs Vital Signs: Vital Signs - 24 hr 11/15/24 16:00 11/15/24 16:06 11/15/24 20:00 Temperature 97.7 F Pulse Rate 67 79 Respiratory Rate 21 H Blood Pressure 125/71 Pulse Oximetry 92 Oxygen Delivery Room Air Oxygen Flow Rate Fraction of Inspired Oxygen 11/15/24 20:00 11/15/24 22:01 11/16/24 00:00 Temperature 97.7 F Pulse Rate 80 77 80 Respiratory Rate 20 20 Blood Pressure 126/66 Pulse Oximetry 94 93 Oxygen Delivery Room Air Oxygen Flow Rate Fraction of Inspired Oxygen 21 11/16/24 00:00 11/16/24 04:00 11/16/24 07:27 Temperature Pulse Rate 83 72 Respiratory Rate Blood Pressure Pulse Oximetry 96 Oxygen Delivery Nasal Cannula Oxygen Flow Rate 2 Fraction of Inspired Oxygen 11/16/24 07:56 11/16/24 08:00 11/16/24 08:00 Temperature 97.6 F Pulse Rate 74 89 89 Respiratory Rate 20 20 Blood Pressure 126/66 Pulse Oximetry 95 95 Oxygen Delivery Room Air Oxygen Flow Rate Fraction of Inspired Oxygen 21 11/16/24 08:38 11/16/24 08:39 Temperature Pulse Rate 89 89 Respiratory Rate Blood Pressure Pulse Oximetry Oxygen Delivery Oxygen Flow Rate Fraction of Inspired Oxygen Intake/Output Intake/Output: Intake & Output 11/13/24 11/14/24 11/15/24 11/16/24 23:59 23:59 23:59 23:59 Intake Total 1390 1320 520 270 Output Total 400 Balance 990 1320 520 270 Meds/Results Medications: Active Medications Generic Name Dose Route Start Last Admin Trade Name Freq PRN Reason Stop Dose Admin Acetaminophen 650 mg 11/09/24 01:03 Acetaminophen 325 Mg Tablet PO Q4H PRN Mild Pain (1-3) or Fever Amlodipine Besylate 10 mg 11/10/24 09:00 11/16/24 08:39 Amlodipine Besylate 10 Mg Tablet PO 10 mg DAILY MASTER Administration Bumetanide 1 mg 11/16/24 09:00 11/16/24 08:40 Bumetanide 1 Mg Tablet PO 1 mg BID MASTER Administration Dextrose 12.5 gm 11/09/24 01:01 Dextrose 50% 25 Gm/50 Ml Syringe IV PUSH PRN PRN Hypoglycemia Protocol Diclofenac Sodium 1 applic 11/09/24 17:00 11/16/24 14:33 Diclofenac Sodium 1% 100 Gm Gel (*Bkc) TOPICAL Not Given TID MASTER Digoxin 125 mcg 11/09/24 09:00 11/16/24 08:39 Digoxin Tab 125 Mcg Tablet PO 125 mcg DAILY MASTER Administration Docusate Sodium 100 mg 11/10/24 09:55 11/12/24 09:34 Docusate Sodium 100 Mg Capsule PO 100 mg Q12H PRN Administration Constipation Empagliflozin 10 mg 11/14/24 09:00 11/16/24 08:39 Empagliflozin 10 Mg Tablet PO 10 mg DAILY MASTER Administration Enoxaparin Sodium 120 mg 11/09/24 17:00 11/16/24 05:04 Enoxaparin 120 Mg/0.8 Ml Syringe SUB-Q 120 mg Q12H MASTER Administration Gabapentin 300 mg 11/09/24 09:00 11/16/24 14:33 Gabapentin 300 Mg Capsule BY MOUTH Not Given TID MASTER Glucose 15 gm 11/09/24 01:01 Glucose Oral Gel 15 Gm Of Glucse In 37.5 Gm Tube PO PRN PRN Hypoglycemia Protocol Dextrose 1,000 mls @ 100 mls/hr 11/09/24 01:01 Dextrose 5% 1,000 Ml IVPB PRN PRN Hypoglycemia Protocol Insulin Aspart 2 - 5 units 11/09/24 08:00 11/16/24 11:19 Insulin Aspart (*Bkc) 100 Units/Ml SUB-Q 3 units TIDWM MASTER Administration Protocol Insulin Aspart 1 - 2 units 11/09/24 21:00 11/15/24 20:33 Insulin Aspart (*Bkc) 100 Units/Ml SUB-Q 1 units HS MASTER Administration Protocol Metoprolol Succinate 200 mg 11/09/24 09:00 11/16/24 08:38 Metoprolol Succinate Ext Rel 100 Mg Tabcr PO 200 mg DAILY MASTER Administration Morphine Sulfate 2 mg 11/09/24 01:03 11/10/24 03:37 Morphine Sulfate (*Crx) 2 Mg/Ml Inj IV PUSH 2 mg Q4H PRN Administration Pain Rated 7-10 Polyethylene Glycol 17 gm 11/10/24 09:55 11/16/24 08:38 Polyethylene Glycol 3350 17 Gm Powd.Pack PO 17 gm QAM MASTER Administration Spironolactone 25 mg 11/12/24 09:00 11/16/24 08:39 Spironolactone 25 Mg Tablet PO 25 mg QAM MASTER Administration Tramadol HCl 25 mg 11/09/24 01:03 11/15/24 00:28 Tramadol Hcl (*Crx) 25 Mg Tablet PO 25 mg Q4H PRN Administration Pain Rated 4-6 Umeclidinium/Vilanterol 1 puff 11/14/24 11:25 11/16/24 07:27 Umeclidinium/Vilanterol 62.5-25 Mcg Ellipta INHALATION 1 puff DAILYRT MASTER Administration Warfarin Sodium 10 mg 11/15/24 17:00 11/15/24 16:47 Warfarin (*Pbkc) 10 Mg Tablet PO 10 mg DAILY@1700 MASTER Administration Radiology Results: ITS Impressions Chest CTA 11/09/24 11:12 Impression: No evidence of pulmonary embolus, aortic dissection, or aortic aneurysm. Minimal pericardial effusion. Small to moderate left pleural effusion and small right pleural effusion, with bilateral atelectatic change, left worse than right. Venous Doppler Study 11/09/24 16:04 IMPRESSION: 1. No deep venous thrombosis within the right lower extremity. 2.. Venous thrombosis of the posterior tibial and peroneal veins in the left lower extremity. Pelvis Ultrasound 11/09/24 16:35 IMPRESSION: Heterogeneous endometrial tissue which may indicate endometrial masses ,debris or hematoma. Further evaluation advised. Otherwise, normal pelvic ultrasound. Chest X-Ray 11/14/24 09:01 IMPRESSION: Cardiomegaly with cardiac decompensation and pulmonary edema. Superimposed pneumonia is highly suggestive more prominent in the lower lobes. Bilateral pleural effusion more on the right side Pelvis MRI 11/15/24 12:42 IMPRESSION: 1. Fibroid uterus including a 1.7 x 1.1 cm pedunculated submucosal fibroid extending into the endometrial canal. 2. 1 cm left ovarian cyst and multiple nabothian cysts at the cervix. Labs Labs: Laboratory Results - last 24 hr 11/15/24 11/15/24 11/16/24 15:56 20:19 05:34 WBC 6.9 RBC 4.68 Hgb 14.1 Hct 41.8 MCV 89.3 MCH 30.1 MCHC 33.7 RDW 13.9 Plt Count 366 MPV 10.3 Immature Gran % (Auto) 5.6 H Neut % (Auto) 60.7 Lymph % (Auto) 21.8 [place] % (Auto) 8.5 Eos % (Auto) 2.0 Baso % (Auto) 1.4 H Lymph # (Auto) 1.51 [place] # (Auto) 0.6 Eos # (Auto) 0.1 Baso # (Auto) 0.1 Abs Immat Gran (auto) 0.39 H Absolute Neuts (auto) 4.2 Absolute Nucleated RBC 0.000 Band Neutrophils % Not Reportable Nucleated RBC % 0.0 Atypical Lymphocytes Present Platelet Estimate Adequate Schistocytes None seen PT 17.8 H INR 1.4 Sodium 131 L Potassium 3.3 L Chloride 87 L Carbon Dioxide 35 H Anion Gap 9 BUN 32 H Creatinine 1.23 H Estim Creat Clear Calc 46 Estimated GFR 43 L Glucose 181 H POC Capillary Glucose 214 H 278 H Calcium 9.0 Magnesium 2.2 Total Bilirubin 0.5 AST 59 H ALT 72 H Alkaline Phosphatase 134 H NT-Pro-B Natriuret Pep 845 H Total Protein 7.0 Albumin 3.7 11/16/24 11/16/24 07:33 11:14 WBC RBC Hgb Hct MCV MCH MCHC RDW Plt Count MPV Immature Gran % (Auto) Neut % (Auto) Lymph % (Auto) [place] % (Auto) Eos % (Auto) Baso % (Auto) Lymph # (Auto) [place] # (Auto) Eos # (Auto) Baso # (Auto) Abs Immat Gran (auto) Absolute Neuts (auto) Absolute Nucleated RBC Band Neutrophils % Nucleated RBC % Atypical Lymphocytes Platelet Estimate Schistocytes PT INR Sodium Potassium Chloride Carbon Dioxide Anion Gap BUN Creatinine Estim Creat Clear Calc Estimated GFR Glucose POC Capillary Glucose 193 H 254 H Calcium Magnesium Total Bilirubin AST ALT Alkaline Phosphatase NT-Pro-B Natriuret Pep Total Protein Albumin Quality VTE Prophylaxis VTE prophylaxis: pharmacologic ordered
[2024-11-16 16:23] LABS: Glucose Point of Care 198 mg/dl (65-105)
[2024-11-16] MEDS: WARFARIN (*PBKC) 10 MG TABLET PO (16:34)
--- NOTE | 2024-11-16 19:40 | PC.NURSE ---
This patient, Columba Voss, was received from [[id number]] on 11/16/24 at 1940. Patient/family oriented to unit policies and routines
[2024-11-16] MEDS: traMADol HCL (*CRX) 25 MG TABLET PO (23:20)
[2024-11-17] VITALS (12 sets, daily range): BP systolic 105–120; BP diastolic 67–90; PULSE 71–86; RESP 16–18; TEMP 36.1–36.4; O2SAT 95–98
[2024-11-17 01:22] LABS: Glucose Point of Care 296 mg/dl (65-105)
[2024-11-17] MEDS: ENOXAPARIN 120 MG/0.8 ML SYRINGE SUB-Q ×2 (04:31→17:26)
[2024-11-17 05:59] LABS: Basophils Absolute Auto 0.1 K/mm3 (0.0-0.1); Basophils Percent Auto 1.3 % (0.2-1.2); Eosinophils Absolute Auto 0.1 K/mm3 (0-0.3); Eosinophils Percent Auto 1.5 % (0-4.4); Hematocrit 41.9 % (37.0-47.0); Hemoglobin 14.2 g/dL (12.0-15.0); Immature Granulocyte Percent A 4.7 % (0-0.5); Lymphocytes Absolute Auto 1.37 K/mm3 (0.9-3.2); Lymphocytes Percent Auto 16.1 % (18.3-44.2); Mean Corpuscular HGB Conc 33.9 g/dl (32-36); Mean Corpuscular Hemoglobin 30.1 pg (26-34); Mean Platelet Volume 10.7 fl (7.4-10.4); Monocytes Absolute Auto 0.7 K/mm3 (0.1-0.6); Monocytes Percent Auto 8.3 % (2.6-8.5); Neutrophils Absolute Auto 5.8 K/mm3 (1.3-6.7); Neutrophils Percent Auto 68.1 % (45.5-73.1); Platelet Count Result 362 k/mm3 (150-375); Red Blood Count 4.71 M/mm3 (4.2-5.4); Red Cell Distribution Width 13.7 % (11.5-14.5); White Blood Count 8.5 K/mm3 (4.5-10.0)
[2024-11-17 06:09] LABS: INR 1.7; Prothrombin Time 20.1 Seconds (11.1-14.7)
[2024-11-17 06:11] LABS: Alanine Aminotransferase 62 U/L (6-35); Albumin Level 3.8 g/dL (3.5-5.1); Alkaline Phosphatase 128 U/L (38-126); Anion Gap 11 mmol/L (4-12); Aspartate Amino Transferase 47 U/L (14-36); Bilirubin,Total 0.6 mg/dL (0.2-1.3); Blood Urea Nitrogen 33 mg/dL (7-17); Calcium 9.1 mg/dL (8.4-10.2); Carbon Dioxide 32 mmol/L (22-30); Chloride 89 mmol/L (98-107); Estimated CRCL calculation 50 ml/min; Estimated Glomerular Filt Rate 47; Glucose 189 mg/dL (65-110); Magnesium 2.3 mg/dL (1.6-2.3); Potassium 3.3 mmol/L (3.4-5.0); Sodium 132 mmol/L (137-145)
--- NOTE | 2024-11-17 07:44 | PM.PNCARD ---
Progress Note: A&P Assessment and Plan (1) CHF (congestive heart failure): Code(s): I50.9 - Heart failure, unspecified Status: Acute Assessment and Plan: Acute on chronic diastolic heart failure. Restrict fluid to 1.5 l/day. During hospitalization treated with Lasix 40 mg IV BID, Metolazone 2.5 mg daily and Spironolactone 25 mg daily, Jardiance 10 mg daily. Appears to be euvolemic. Now, changed diuretics to Bumetanide 1 mg PO BID, Spironolactone 25 mg daily, Jardiance 10 mg daily.. Upon discharge she needs to f/u with her regular svp of digital is Dr. Mason with [facility] in 1-2 weeks. (2) Deep vein thrombosis (DVT) of left lower extremity: Code(s): I82.402 - Acute embolism and thrombosis of unspecified deep veins of left lower extremity Status: Acute Assessment and Plan: On Lovenox. Was on Warfarin until a month ago it was changed to Eliquis. She is being restarted on Warfarin. (3) Afib: Qualifiers: Atrial fibrillation type: unspecified chronic Qualified Code(s): I48.20 - Chronic atrial fibrillation, unspecified Code(s): I48.91 - Unspecified atrial fibrillation Status: Chronic Assessment and Plan: Rate is controlled on Metoprolol and Digoxin. Anticoagulate will be covered with DVT treatment. (4) Hypertension: Code(s): I10 - Essential (primary) hypertension Status: Chronic Assessment and Plan: Stable. (5) COPD (chronic obstructive pulmonary disease): Code(s): J44.9 - Chronic obstructive pulmonary disease, unspecified Status: Inactive Assessment and Plan: On CPAP and Nebs and antibiotics. Subjective Date/time seen: 11/17/24 07:44 Interval history: Reports sob improved. No chest pains. She would like to go home. Exam Const: General: cooperative, healthy appearing and comfortable Orientation/consciousness: oriented to person, oriented to place and oriented to time Resp: Auscultation: clear to auscultation bilaterally, crackles, no rales, no rhonchi, no wheezes and diminished lung sounds Cardio: Rate: regular rate Rhythm: abnormal rhythm Heart sounds: no murmurs Peripheral pulses: dorsalis pedis present Neuro: General: oriented to person, oriented to place and oriented to time Extrem: Right lower extremity: no edema Left lower extremity: no edema Objective Data Vital Signs Vital Signs: Vital Signs - 24 hr 11/16/24 07:56 11/16/24 08:00 11/16/24 08:00 Temperature 97.6 F Pulse Rate 74 89 89 Respiratory Rate 20 20 Blood Pressure 126/66 Pulse Oximetry 95 95 Oxygen Delivery Room Air Fraction of Inspired Oxygen 21 11/16/24 08:38 11/16/24 08:39 11/16/24 12:00 Temperature Pulse Rate 89 89 100 Respiratory Rate Blood Pressure Pulse Oximetry Oxygen Delivery Fraction of Inspired Oxygen 11/16/24 15:49 11/16/24 16:00 11/16/24 19:49 Temperature 97.7 F 97.6 F Pulse Rate 67 77 80 Respiratory Rate 20 16 Blood Pressure 128/70 111/76 Pulse Oximetry 90 94 Oxygen Delivery Fraction of Inspired Oxygen 11/16/24 20:00 11/16/24 20:00 11/17/24 00:00 Temperature Pulse Rate 75 74 Respiratory Rate Blood Pressure Pulse Oximetry Oxygen Delivery Room Air Fraction of Inspired Oxygen 11/17/24 04:00 Temperature Pulse Rate 75 Respiratory Rate Blood Pressure Pulse Oximetry Oxygen Delivery Fraction of Inspired Oxygen Intake/Output Intake/Output: Intake & Output 11/14/24 11/15/24 11/16/24 11/17/24 23:59 23:59 23:59 23:59 Intake Total 1320 520 820 300 Balance 1320 520 820 300 Meds/Results Medications: Active Medications Generic Name Dose Route Start Last Admin Trade Name Freq PRN Reason Stop Dose Admin Acetaminophen 650 mg 11/09/24 01:03 Acetaminophen 325 Mg Tablet PO Q4H PRN Mild Pain (1-3) or Fever Amlodipine Besylate 10 mg 11/10/24 09:00 11/16/24 08:39 Amlodipine Besylate 10 Mg Tablet PO 10 mg DAILY MASTER Administration Bumetanide 1 mg 11/16/24 09:00 11/16/24 16:34 Bumetanide 1 Mg Tablet PO 1 mg BID MASTER Administration Dextrose 12.5 gm 11/09/24 01:01 Dextrose 50% 25 Gm/50 Ml Syringe IV PUSH PRN PRN Hypoglycemia Protocol Diclofenac Sodium 1 applic 11/09/24 17:00 11/16/24 16:34 Diclofenac Sodium 1% 100 Gm Gel (*Bkc) TOPICAL 1 applic TID MASTER Administration Digoxin 125 mcg 11/09/24 09:00 11/16/24 08:39 Digoxin Tab 125 Mcg Tablet PO 125 mcg DAILY MASTER Administration Docusate Sodium 100 mg 11/10/24 09:55 11/12/24 09:34 Docusate Sodium 100 Mg Capsule PO 100 mg Q12H PRN Administration Constipation Empagliflozin 10 mg 11/14/24 09:00 11/16/24 08:39 Empagliflozin 10 Mg Tablet PO 10 mg DAILY MASTER Administration Enoxaparin Sodium 120 mg 11/09/24 17:00 11/17/24 04:31 Enoxaparin 120 Mg/0.8 Ml Syringe SUB-Q 120 mg Q12H MASTER Administration Gabapentin 300 mg 11/09/24 09:00 11/16/24 16:34 Gabapentin 300 Mg Capsule BY MOUTH 300 mg TID MASTER Administration Glucose 15 gm 11/09/24 01:01 Glucose Oral Gel 15 Gm Of Glucse In 37.5 Gm Tube PO PRN PRN Hypoglycemia Protocol Dextrose 1,000 mls @ 100 mls/hr 11/09/24 01:01 Dextrose 5% 1,000 Ml IVPB PRN PRN Hypoglycemia Protocol Insulin Aspart 2 - 5 units 11/09/24 08:00 11/16/24 16:34 Insulin Aspart (*Bkc) 100 Units/Ml SUB-Q Not Given TIDWM [facility] Protocol Insulin Aspart 1 - 2 units 11/09/24 21:00 11/16/24 20:02 Insulin Aspart (*Bkc) 100 Units/Ml SUB-Q 1 units HS MASTER Administration Protocol Metoprolol Succinate 200 mg 11/09/24 09:00 11/16/24 08:38 Metoprolol Succinate Ext Rel 100 Mg Tabcr PO 200 mg DAILY MASTER Administration Morphine Sulfate 2 mg 11/09/24 01:03 11/10/24 03:37 Morphine Sulfate (*Crx) 2 Mg/Ml Inj IV PUSH 2 mg Q4H PRN Administration Pain Rated 7-10 Polyethylene Glycol 17 gm 11/10/24 09:55 11/16/24 08:38 Polyethylene Glycol 3350 17 Gm Powd.Pack PO 17 gm QAM MASTER Administration Spironolactone 25 mg 11/12/24 09:00 11/16/24 08:39 Spironolactone 25 Mg Tablet PO 25 mg QAM MASTER Administration Tramadol HCl 25 mg 11/09/24 01:03 11/16/24 23:20 Tramadol Hcl (*Crx) 25 Mg Tablet PO 25 mg Q4H PRN Administration Pain Rated 4-6 Umeclidinium/Vilanterol 1 puff 11/14/24 11:25 11/16/24 07:27 Umeclidinium/Vilanterol 62.5-25 Mcg Ellipta INHALATION 1 puff DAILYRT MASTER Administration Warfarin Sodium 10 mg 11/15/24 17:00 11/16/24 16:34 Warfarin (*Pbkc) 10 Mg Tablet PO 10 mg DAILY@1700 MASTER Administration Radiology Results: ITS Impressions Chest CTA 11/09/24 11:12 Impression: No evidence of pulmonary embolus, aortic dissection, or aortic aneurysm. Minimal pericardial effusion. Small to moderate left pleural effusion and small right pleural effusion, with bilateral atelectatic change, left worse than right. Venous Doppler Study 11/09/24 16:04 IMPRESSION: 1. No deep venous thrombosis within the right lower extremity. 2.. Venous thrombosis of the posterior tibial and peroneal veins in the left lower extremity. Pelvis Ultrasound 11/09/24 16:35 IMPRESSION: Heterogeneous endometrial tissue which may indicate endometrial masses ,debris or hematoma. Further evaluation advised. Otherwise, normal pelvic ultrasound. Chest X-Ray 11/14/24 09:01 IMPRESSION: Cardiomegaly with cardiac decompensation and pulmonary edema. Superimposed pneumonia is highly suggestive more prominent in the lower lobes. Bilateral pleural effusion more on the right side Pelvis MRI 11/15/24 12:42 IMPRESSION: 1. Fibroid uterus including a 1.7 x 1.1 cm pedunculated submucosal fibroid extending into the endometrial canal. 2. 1 cm left ovarian cyst and multiple nabothian cysts at the cervix. Labs Labs: Laboratory Results - last 24 hr 11/16/24 11/16/24 11/16/24 05:34 07:33 11:14 WBC 6.9 RBC 4.68 Hgb 14.1 Hct 41.8 MCV 89.3 MCH 30.1 MCHC 33.7 RDW 13.9 Plt Count 366 MPV 10.3 Immature Gran % (Auto) 5.6 H Neut % (Auto) 60.7 Lymph % (Auto) 21.8 [place] % (Auto) 8.5 Eos % (Auto) 2.0 Baso % (Auto) 1.4 H Lymph # (Auto) 1.51 [place] # (Auto) 0.6 Eos # (Auto) 0.1 Baso # (Auto) 0.1 Abs Immat Gran (auto) 0.39 H Absolute Neuts (auto) 4.2 Absolute Nucleated RBC 0.000 Band Neutrophils % Not Reportable Nucleated RBC % 0.0 Atypical Lymphocytes Present Platelet Estimate Adequate Schistocytes None seen PT INR Sodium Potassium Chloride Carbon Dioxide Anion Gap BUN Creatinine Estim Creat Clear Calc Estimated GFR Glucose POC Capillary Glucose 193 H 254 H Calcium Magnesium Total Bilirubin AST ALT Alkaline Phosphatase Total Protein Albumin 11/16/24 11/16/24 11/17/24 16:21 19:54 05:24 WBC 8.5 RBC 4.71 Hgb 14.2 Hct 41.9 MCV 89.0 MCH 30.1 MCHC 33.9 RDW 13.7 Plt Count 362 MPV 10.7 H Immature Gran % (Auto) 4.7 H Neut % (Auto) 68.1 Lymph % (Auto) 16.1 L [place] % (Auto) 8.3 Eos % (Auto) 1.5 Baso % (Auto) 1.3 H Lymph # (Auto) 1.37 [place] # (Auto) 0.7 H Eos # (Auto) 0.1 Baso # (Auto) 0.1 Abs Immat Gran (auto) 0.40 H Absolute Neuts (auto) 5.8 Absolute Nucleated RBC 0.000 Band Neutrophils % Nucleated RBC % 0.0 Atypical Lymphocytes Platelet Estimate Schistocytes PT 20.1 H INR 1.7 Sodium 132 L Potassium 3.3 L Chloride 89 L Carbon Dioxide 32 H Anion Gap 11 BUN 33 H Creatinine 1.13 H Estim Creat Clear Calc 50 Estimated GFR 47 L Glucose 189 H POC Capillary Glucose 198 H 296 H Calcium 9.1 Magnesium 2.3 Total Bilirubin 0.6 AST 47 H ALT 62 H Alkaline Phosphatase 128 H Total Protein 7.0 Albumin 3.8
[2024-11-17] MEDS: UMECLIDINIUM/VILANTEROL 62.5-25 MCG ELLIPTA 1 PUFF INHALATION (08:09)
[2024-11-17 08:39] LABS: Glucose Point of Care 194 mg/dl (65-105)
[2024-11-17] MEDS: GABAPENTIN 300 MG CAPSULE BY MOUTH ×3 (09:06→17:27)
[2024-11-17] MEDS: DIGOXIN TAB 125 MCG TABLET PO (09:06)
[2024-11-17] MEDS: SPIRONOLACTONE 25 MG TABLET PO (09:06)
[2024-11-17] MEDS: amLODIPine BESYLATE 10 MG TABLET PO (09:07)
[2024-11-17] MEDS: BUMETANIDE 1 MG TABLET PO ×2 (09:07→17:27)
[2024-11-17] MEDS: METOPROLOL SUCCINATE EXT REL 100 MG TABCR 200 MG PO (09:07)
[2024-11-17] MEDS: EMPAGLIFLOZIN 10 MG TABLET PO (09:07)
[2024-11-17] MEDS: polyethylene glycoL 3350 17 GM POWD.PACK PO (09:07)
[2024-11-17] MEDS: DICLOFENAC SODIUM 1% 100 GM GEL (*BKC) 1 APPLIC TOPICAL ×2 (09:08→17:33)
--- NOTE | 2024-11-17 10:59 | PCNWS ---
Weekly nutritional screen. Patient is tolerating current diet with adequate intake. No weight loss reported. No nutritional needs at this time.
[2024-11-17 11:47] LABS: Glucose Point of Care 239 mg/dl (65-105)
[2024-11-17] MEDS: INSULIN ASPART (*BKC) 100 UNITS/ML SUB-Q ×3 (12:41→20:53)
--- NOTE | 2024-11-17 16:31 | P.PNIM_ITS ---
Progress Note: A&P Assessment and Plan (1) Heart failure with reduced ejection fraction: Code(s): I50.20 - Unspecified systolic (congestive) heart failure Status: Acute Assessment and Plan: * BNP 2285>1870>2410>1370 * 11/11/24 Patient had worsening shortness of breath overnight. Patient immediately placed on BiPAP. Improved symptomatology. She has significant wet crackles diffusely. No wheezing, no stridor. Stat chest x-ray demonstrates severe pulmonary edema. Lower extremities still with 2+ pitting edema bilaterally below the knees. Daily weights and urine output unclear per the nursing team as she has been going in her depends. ABG pCO2 43.8, pH 7.413. Given Lasix 80 mg IV x1. * Echocardiogram: Summary 1. Complete two-dimensional, color flow and Doppler transthoracic echocardiogram is performed. 2. Left ventricular chamber dimension is normal. 3. Left ventricular systolic function is normal, estimated at 60-65%. 4. The left ventricular diastolic function is abnormal. 5. E/e' 16 is elevated. 6. Atrial fibrillation. 7. Left atrial chamber dimension is moderately enlarged. 8. Right atrial chamber dimension is mildly enlarged. 9. There is mild aortic valve sclerosis. 10. There is trace mitral valve regurgitation. 11. No pulmonary hypertension, estimated pulmonary arterial systolic pressure is 30 mmHg. 12. There is trivial pericardial effusion. * Furosemide 40 mg ivp BID. * Metolazone 2.5 mg PO at 8:30 am. * Spironolactone 25 mg PO qam. * Jardiance 10 mg PO daily added. * Daily weights. * Strict I&O's. * Fluid restriction 1500 ml. * Cardiology consult, appreciate recommendations. (2) Paroxysmal atrial fibrillation: Code(s): I48.0 - Paroxysmal atrial fibrillation Status: Chronic Assessment and Plan: * Patient was taking Eliquis 5 mg PO BID for one month, stopped on 11/09 and started back on Coumadin. LE dopplers positive for a DVT LLE. Switched on 11/09 to Enoxaprin 120 mg subq q 12 and increase Coumadin 10 mg PO daily. * Metoprolol Succinate 200 mg PO daily. * awaiting INR therapeutic range (3) COPD (chronic obstructive pulmonary disease): Code(s): J44.9 - Chronic obstructive pulmonary disease, unspecified Status: Inactive Assessment and Plan: * Antibiotics discontinued on 11/12/24. * Guaifenesin 1,200 mg PO BID. * Incentive Spirometer. * Ipratropium 0.5 mg Neb q 4 switched to Anoro Ellipta 1 pugg daily. * WBC improving from 15.7>14.1>13.4>8.8>7.4>6.8>7.0>8.5. * 11/09/24- ABG: pH 7.438, pC02 36.1, p02 59.9, 02 saturation 92.0. * Pulmonology consult, appreciate recommendations. (4) ZARAGOZA (dyspnea on exertion): Code(s): R06.09 - Other forms of dyspnea Status: Acute Assessment and Plan: * D dimer 1.70. Chest CTA negative. * LE dopplers:IMPRESSION: 1. No deep venous thrombosis within the right lower extremity. 2.. Venous thrombosis of the posterior tibial and peroneal veins in the left lower extremity. * Pulmonology consult, appreciate recommendations. * Better. Weaned to room air with Sa02 95%. * 2 liters at night per apnea link study (5) Deep vein thrombosis (DVT) of left lower extremity: Code(s): I82.402 - Acute embolism and thrombosis of unspecified deep veins of left lower extremity Status: Acute Assessment and Plan: * LE doppler: IMPRESSION: 1. No deep venous thrombosis within the right lower extremity. 2.. Venous thrombosis of the posterior tibial and peroneal veins in the left l ower extremity. * Patient reported that she was previously on Coumadin. Patient switched to Eliquis a month ago. Patient reports compliance with Eliquis. * Stopped Eliquis on 11/09 and restarted Warfarin with Lovenox bridge. * Lovenox 120 mg subq q12. INR 1.7. Increased Warfarin 10 mg PO daily. * Monitor PT/INR daily. (6) Abdominal pain: Code(s): R10.9 - Unspecified abdominal pain Status: Acute Assessment and Plan: MRI Pelvis showed fibroid 1.7 x 1.1cm pedunculated fibroid extending into the endometrial canal and 1 cm left ovarian cyst and multiple nabothian cysts at the cervix. DIRECTOR OF H[employer] RESOURCES evaluated and recommended outaptient follow up (7) DM2 (diabetes mellitus, type 2): Qualifiers: Diabetes mellitus complication status: with circulatory complication Diabetes mellitus complication detail: with other circulatory complications Code(s): E11.9 - Type 2 diabetes mellitus without complications Status: Chronic Assessment and Plan: * Accuchecks, SSI, and hypoglycemic protocol. * HgbA1C 9.1% on 08/30/24. (8) Hypokalemia: Code(s): E87.6 - Hypokalemia Status: Acute Assessment and Plan: * Potassium 3.4. * Patient given Potassium Chloride 40 meq q4 x 1. * Trend labs. Plan DVT prophylaxis On Full dose Lovenox awaiting INR therapeutic range for discharge Subjective Date/time seen: 11/17/24 16:31 Interval history: Comfortable at bedside INR 1.7 today awaiting increase to 2 and above for discharge Review of Systems Review of Systems: All systems reviewed & are unremarkable except as noted in HPI and below Exam Const: General: comfortable, no acute distress and uncomfortable Other: Acute distress due to left upper quadrant pain which is slightly reproducible and shortness of breath. HENMT: Mouth: Yes moist mucous membranes Eyes: Pupils: Equal, round and reactive pupils present Neck: Neck: supple Resp: Effort & Inspection: normal respiratory effort Auscultation: crackles, wheezes expiratory wheezes and diminished lung sounds Other: Tachypneic at times Cardio: Rate: tachycardic Rhythm: abnormal rhythm regularly irregular (Afib 82.) Heart sounds: no gallops, no murmurs and no rubs Other: Telemetry- SR 81 GI: Auscultation: normal bowel sounds Other: Slightly distant, reported to be normal per the patient Neuro: Cranial nerves: Yes Equal, round and reactive pupils present Speech: normal speech Motor exam (neuro): 5/5 motor strength present throughout Sensory Exam: normal sensation Extrem: General: edema bilateral (2+) and pedal edema bilaterally 2+ Other: 2+ pitting edema of the bilateral lower extremities up to the knees Psych: Mental Status: mental status grossly normal Affect: normal affect Objective Data Vital Signs Vital Signs: Vital Signs - 24 hr 11/16/24 19:49 11/16/24 20:00 11/16/24 20:00 Temperature 97.6 F Pulse Rate 80 75 Respiratory Rate 16 Blood Pressure 111/76 Pulse Oximetry 94 Oxygen Delivery Room Air Oxygen Flow Rate 11/17/24 00:00 11/17/24 04:00 11/17/24 08:00 Temperature Pulse Rate 74 75 79 Respiratory Rate Blood Pressure Pulse Oximetry Oxygen Delivery Oxygen Flow Rate 11/17/24 08:09 11/17/24 08:30 11/17/24 09:04 Temperature Pulse Rate 76 Respiratory Rate 16 Blood Pressure 120/90 Pulse Oximetry 98 96 Oxygen Delivery Nasal Cannula Room Air Oxygen Flow Rate 2 11/17/24 09:06 11/17/24 09:07 11/17/24 09:36 Temperature 97.6 F Pulse Rate 76 76 75 Respiratory Rate 18 Blood Pressure 120/89 Pulse Oximetry 97 Oxygen Delivery Oxygen Flow Rate 11/17/24 12:05 11/17/24 13:42 11/17/24 16:05 Temperature 97.1 F L Pulse Rate 86 76 79 Respiratory Rate 18 Blood Pressure 116/72 Pulse Oximetry 95 Oxygen Delivery Oxygen Flow Rate Intake/Output Intake/Output: Intake & Output 11/14/24 11/15/24 11/16/24 11/17/24 23:59 23:59 23:59 23:59 Intake Total 1320 520 820 640 Balance 1320 520 820 640 Meds/Results Medications: Active Medications Generic Name Dose Route Start Last Admin Trade Name Freq PRN Reason Stop Dose Admin Acetaminophen 650 mg 11/09/24 01:03 Acetaminophen 325 Mg Tablet PO Q4H PRN Mild Pain (1-3) or Fever Amlodipine Besylate 10 mg 11/10/24 09:00 11/17/24 09:07 Amlodipine Besylate 10 Mg Tablet PO 10 mg DAILY MASTER Administration Bumetanide 1 mg 11/16/24 09:00 11/17/24 09:07 Bumetanide 1 Mg Tablet PO 1 mg BID MASTER Administration Dextrose 12.5 gm 11/09/24 01:01 Dextrose 50% 25 Gm/50 Ml Syringe IV PUSH PRN PRN Hypoglycemia Protocol Diclofenac Sodium 1 applic 11/09/24 17:00 11/17/24 12:44 Diclofenac Sodium 1% 100 Gm Gel (*Bkc) TOPICAL Not Given TID MASTER Digoxin 125 mcg 11/09/24 09:00 11/17/24 09:06 Digoxin Tab 125 Mcg Tablet PO 125 mcg DAILY MASTER Administration Docusate Sodium 100 mg 11/10/24 09:55 11/12/24 09:34 Docusate Sodium 100 Mg Capsule PO 100 mg Q12H PRN Administration Constipation Empagliflozin 10 mg 11/14/24 09:00 11/17/24 09:07 Empagliflozin 10 Mg Tablet PO 10 mg DAILY MASTER Administration Enoxaparin Sodium 120 mg 11/09/24 17:00 11/17/24 04:31 Enoxaparin 120 Mg/0.8 Ml Syringe SUB-Q 120 mg Q12H MASTER Administration Gabapentin 300 mg 11/09/24 09:00 11/17/24 12:41 Gabapentin 300 Mg Capsule BY MOUTH 300 mg TID MASTER Administration Glucose 15 gm 11/09/24 01:01 Glucose Oral Gel 15 Gm Of Glucse In 37.5 Gm Tube PO PRN PRN Hypoglycemia Protocol Dextrose 1,000 mls @ 100 mls/hr 11/09/24 01:01 Dextrose 5% 1,000 Ml IVPB PRN PRN Hypoglycemia Protocol Insulin Aspart 2 - 5 units 11/09/24 08:00 11/17/24 12:41 Insulin Aspart (*Bkc) 100 Units/Ml SUB-Q 2 units TIDWM MASTER Administration Protocol Insulin Aspart 1 - 2 units 11/09/24 21:00 11/16/24 20:02 Insulin Aspart (*Bkc) 100 Units/Ml SUB-Q 1 units HS MASTER Administration Protocol Metoprolol Succinate 200 mg 11/09/24 09:00 11/17/24 09:07 Metoprolol Succinate Ext Rel 100 Mg Tabcr PO 200 mg DAILY MASTER Administration Morphine Sulfate 2 mg 11/09/24 01:03 11/10/24 03:37 Morphine Sulfate (*Crx) 2 Mg/Ml Inj IV PUSH 2 mg Q4H PRN Administration Pain Rated 7-10 Polyethylene Glycol 17 gm 11/10/24 09:55 11/17/24 09:07 Polyethylene Glycol 3350 17 Gm Powd.Pack PO 17 gm QAM MASTER Administration Spironolactone 25 mg 11/12/24 09:00 11/17/24 09:06 Spironolactone 25 Mg Tablet PO 25 mg QAM MASTER Administration Tramadol HCl 25 mg 11/09/24 01:03 11/16/24 23:20 Tramadol Hcl (*Crx) 25 Mg Tablet PO 25 mg Q4H PRN Administration Pain Rated 4-6 Umeclidinium/Vilanterol 1 puff 11/14/24 11:25 11/17/24 08:09 Umeclidinium/Vilanterol 62.5-25 Mcg Ellipta INHALATION 1 puff DAILYRT MASTER Administration Warfarin Sodium 10 mg 11/15/24 17:00 11/16/24 16:34 Warfarin (*Pbkc) 10 Mg Tablet PO 10 mg DAILY@1700 MASTER Administration Radiology Results: ITS Impressions Chest CTA 11/09/24 11:12 Impression: No evidence of pulmonary embolus, aortic dissection, or aortic aneurysm. Minimal pericardial effusion. Small to moderate left pleural effusion and small right pleural effusion, with b ilateral atelectatic change, left worse than right. Venous Doppler Study 11/09/24 16:04 IMPRESSION: 1. No deep venous thrombosis within the right lower extremity. 2.. Venous thrombosis of the posterior tibial and peroneal veins in the left lower extremity. Pelvis Ultrasound 11/09/24 16:35 IMPRESSION: Heterogeneous endometrial tissue which may indicate endometrial masses ,debris or hematoma. Further evaluation advised. Otherwise, normal pelvic ultrasound. Chest X-Ray 11/14/24 09:01 IMPRESSION: Cardiomegaly with cardiac decompensation and pulmonary edema. Superimposed pneumonia is highly suggestive more prominent in the lower lobes. Bilateral pleural effusion more on the right side Pelvis MRI 11/15/24 12:42 IMPRESSION: 1. Fibroid uterus including a 1.7 x 1.1 cm pedunculated submucosal fibroid extending into the endometrial canal. 2. 1 cm left ovarian cyst and multiple nabothian cysts at the cervix. Labs Labs: Laboratory Results - last 24 hr 11/16/24 11/17/24 11/17/24 19:54 05:24 08:35 WBC 8.5 RBC 4.71 Hgb 14.2 Hct 41.9 MCV 89.0 MCH 30.1 MCHC 33.9 RDW 13.7 Plt Count 362 MPV 10.7 H Immature Gran % (Auto) 4.7 H Neut % (Auto) 68.1 Lymph % (Auto) 16.1 L [place] % (Auto) 8.3 Eos % (Auto) 1.5 Baso % (Auto) 1.3 H Lymph # (Auto) 1.37 [place] # (Auto) 0.7 H Eos # (Auto) 0.1 Baso # (Auto) 0.1 Abs Immat Gran (auto) 0.40 H Absolute Neuts (auto) 5.8 Absolute Nucleated RBC 0.000 Nucleated RBC % 0.0 PT 20.1 H INR 1.7 Sodium 132 L Potassium 3.3 L Chloride 89 L Carbon Dioxide 32 H Anion Gap 11 BUN 33 H Creatinine 1.13 H Estim Creat Clear Calc 50 Estimated GFR 47 L Glucose 189 H POC Capillary Glucose 296 H 194 H Calcium 9.1 Magnesium 2.3 Total Bilirubin 0.6 AST 47 H ALT 62 H Alkaline Phosphatase 128 H Total Protein 7.0 Albumin 3.8 11/17/24 11:43 WBC RBC Hgb Hct MCV MCH MCHC RDW Plt Count MPV Immature Gran % (Auto) Neut % (Auto) Lymph % (Auto) [place] % (Auto) Eos % (Auto) Baso % (Auto) Lymph # (Auto) [place] # (Auto) Eos # (Auto) Baso # (Auto) Abs Immat Gran (auto) Absolute Neuts (auto) Absolute Nucleated RBC Nucleated RBC % PT INR Sodium Potassium Chloride Carbon Dioxide Anion Gap BUN Creatinine Estim Creat Clear Calc Estimated GFR Glucose POC Capillary Glucose 239 H Calcium Magnesium Total Bilirubin AST ALT Alkaline Phosphatase Total Protein Albumin Quality VTE Prophylaxis VTE prophylaxis: pharmacologic ordered
[2024-11-17 16:45] LABS: Glucose Point of Care 227 mg/dl (65-105)
[2024-11-17] MEDS: WARFARIN (*PBKC) 10 MG TABLET PO (17:27)
[2024-11-18] MEDS: ENOXAPARIN 120 MG/0.8 ML SYRINGE SUB-Q ×2 (04:03→17:49)
[2024-11-18 04:28] LABS: Glucose Point of Care 235 mg/dl (65-105)
[2024-11-18 05:43] LABS: Basophils Absolute Auto 0.1 K/mm3 (0.0-0.1); Basophils Percent Auto 1.1 % (0.2-1.2); Eosinophils Absolute Auto 0.1 K/mm3 (0-0.3); Eosinophils Percent Auto 1.4 % (0-4.4); Hematocrit 43.9 % (37.0-47.0); Hemoglobin 14.4 g/dL (12.0-15.0); Immature Granulocyte Absolute 0.27 K/mm3 (0.00-0.031); Immature Granulocyte Percent A 3.9 % (0-0.5); Lymphocytes Absolute Auto 1.28 K/mm3 (0.9-3.2); Lymphocytes Percent Auto 18.4 % (18.3-44.2); Mean Corpuscular HGB Conc 32.8 g/dl (32-36); Mean Corpuscular Hemoglobin 29.8 pg (26-34); Mean Corpuscular Volume 90.7 fl (80-100); Mean Platelet Volume 10.6 fl (7.4-10.4); Monocytes Absolute Auto 0.6 K/mm3 (0.1-0.6); Monocytes Percent Auto 8.9 % (2.6-8.5); Neutrophils Absolute Auto 4.6 K/mm3 (1.3-6.7); Neutrophils Percent Auto 66.3 % (45.5-73.1); Platelet Count Result 369 k/mm3 (150-375); Red Blood Count 4.84 M/mm3 (4.2-5.4); Red Cell Distribution Width 13.8 % (11.5-14.5)
[2024-11-18 05:53] LABS: Alanine Aminotransferase 55 U/L (6-35); Albumin Level 3.9 g/dL (3.5-5.1); Alkaline Phosphatase 123 U/L (38-126); Anion Gap 9 mmol/L (4-12); Aspartate Amino Transferase 43 U/L (14-36); Bilirubin,Total 0.6 mg/dL (0.2-1.3); Blood Urea Nitrogen 32 mg/dL (7-17); Calcium 8.8 mg/dL (8.4-10.2); Carbon Dioxide 35 mmol/L (22-30); Chloride 86 mmol/L (98-107); Estimated CRCL calculation 49 ml/min; Estimated Glomerular Filt Rate 47; Glucose 185 mg/dL (65-110); Magnesium 2.3 mg/dL (1.6-2.3); Potassium 3.3 mmol/L (3.4-5.0); Sodium 130 mmol/L (137-145)
[2024-11-18 05:57] LABS: INR 1.8; Prothrombin Time 21.2 Seconds (11.1-14.7)
[2024-11-18 06:00] VITALS: BP 103/57; PULSE 72; RESP 18; TEMP 36.2; O2SAT 96
[2024-11-18 08:13] VITALS: PULSE 80
[2024-11-18] MEDS: DIGOXIN TAB 125 MCG TABLET PO (08:13)
[2024-11-18] MEDS: SPIRONOLACTONE 25 MG TABLET PO (08:14)
[2024-11-18] MEDS: BUMETANIDE 1 MG TABLET PO ×2 (08:14→17:48)
[2024-11-18] MEDS: EMPAGLIFLOZIN 10 MG TABLET PO (08:14)
[2024-11-18] MEDS: METOPROLOL SUCCINATE EXT REL 100 MG TABCR 200 MG PO (08:14)
[2024-11-18] MEDS: GABAPENTIN 300 MG CAPSULE BY MOUTH ×3 (08:14→17:49)
[2024-11-18 08:22] VITALS: BP 104/70
[2024-11-18 08:23] LABS: Glucose Point of Care 211 mg/dl (65-105)
[2024-11-18] MEDS: UMECLIDINIUM/VILANTEROL 62.5-25 MCG ELLIPTA 1 PUFF INHALATION (08:25)
[2024-11-18 08:31] VITALS: O2SAT 96
[2024-11-18] MEDS: DICLOFENAC SODIUM 1% 100 GM GEL (*BKC) 1 APPLIC TOPICAL ×3 (08:55→17:49)
[2024-11-18] MEDS: INSULIN ASPART (*BKC) 100 UNITS/ML SUB-Q ×4 (08:55→21:12)
[2024-11-18 11:55] LABS: Glucose Point of Care 231 mg/dl (65-105)
--- NOTE | 2024-11-18 12:48 | P.PNIM_ITS ---
Progress Note: A&P Assessment and Plan (1) Heart failure with reduced ejection fraction: Code(s): I50.20 - Unspecified systolic (congestive) heart failure Status: Acute Assessment and Plan: * BNP 2285>1870>2410>1370 * 11/11/24 Patient had worsening shortness of breath overnight. Patient immediately placed on BiPAP. Improved symptomatology. She has significant wet crackles diffusely. No wheezing, no stridor. Stat chest x-ray demonstrates severe pulmonary edema. Lower extremities still with 2+ pitting edema bilaterally below the knees. Daily weights and urine output unclear per the nursing team as she has been going in her depends. ABG pCO2 43.8, pH 7.413. Given Lasix 80 mg IV x1. * Echocardiogram: Summary 1. Complete two-dimensional, color flow and Doppler transthoracic echocardiogram is performed. 2. Left ventricular chamber dimension is normal. 3. Left ventricular systolic function is normal, estimated at 60-65%. 4. The left ventricular diastolic function is abnormal. 5. E/e' 16 is elevated. 6. Atrial fibrillation. 7. Left atrial chamber dimension is moderately enlarged. 8. Right atrial chamber dimension is mildly enlarged. 9. There is mild aortic valve sclerosis. 10. There is trace mitral valve regurgitation. 11. No pulmonary hypertension, estimated pulmonary arterial systolic pressure is 30 mmHg. 12. There is trivial pericardial effusion. * Furosemide 40 mg ivp BID. * Metolazone 2.5 mg PO at 8:30 am. * Spironolactone 25 mg PO qam. * Jardiance 10 mg PO daily added. * Daily weights. * Strict I&O's. * Fluid restriction 1500 ml. * Cardiology consult, appreciate recommendations. (2) Paroxysmal atrial fibrillation: Code(s): I48.0 - Paroxysmal atrial fibrillation Status: Chronic Assessment and Plan: * Patient was taking Eliquis 5 mg PO BID for one month, stopped on 11/09 and started back on Coumadin. LE dopplers positive for a DVT LLE. Switched on 11/09 to Enoxaprin 120 mg subq q 12 and increase Coumadin 10 mg PO daily. * Metoprolol Succinate 200 mg PO daily. * awaiting INR therapeutic range, as patient does not have the ability to check INR daily at home (3) COPD (chronic obstructive pulmonary disease): Code(s): J44.9 - Chronic obstructive pulmonary disease, unspecified Status: Inactive Assessment and Plan: * Antibiotics discontinued on 11/12/24. * Guaifenesin 1,200 mg PO BID. * Incentive Spirometer. * Ipratropium 0.5 mg Neb q 4 switched to Anoro Ellipta 1 pugg daily. * WBC improving from 15.7>14.1>13.4>8.8>7.4>6.8>7.0>8.5. * 11/09/24- ABG: pH 7.438, pC02 36.1, p02 59.9, 02 saturation 92.0. * Pulmonology consult, appreciate recommendations. (4) ZARAGOZA (dyspnea on exertion): Code(s): R06.09 - Other forms of dyspnea Status: Acute Assessment and Plan: * D dimer 1.70. Chest CTA negative. * LE dopplers:IMPRESSION: 1. No deep venous thrombosis within the right lower extremity. 2.. Venous thrombosis of the posterior tibial and peroneal veins in the left lower extremity. * Pulmonology consult, appreciate recommendations. * Better. Weaned to room air with Sa02 95%. * 2 liters at night per apnea link study (5) Deep vein thrombosis (DVT) of left lower extremity: Code(s): I82.402 - Acute embolism and thrombosis of unspecified deep veins of left lower extremity Status: Acute Assessment and Plan: * LE doppler: IMPRESSION: 1. No deep venous thrombosis within the right lower extremity. 2.. Venous thrombosis of the posterior tibial and peroneal veins in the left lower extremity. * Patient reported that she was previously on Coumadin. Patient switched to Eliquis a month ago. Patient reports compliance with Eliquis. * Stopped Eliquis on 11/09 and restarted Warfarin with Lovenox bridge. * Lovenox 120 mg subq q12. INR 1.7. Increased Warfarin 10 mg PO daily. * Monitor PT/INR daily. (6) Abdominal pain: Code(s): R10.9 - Unspecified abdominal pain Status: Acute Assessment and Plan: MRI Pelvis showed fibroid 1.7 x 1.1cm pedunculated fibroid extending into the endometrial canal and 1 cm left ovarian cyst and multiple nabothian cysts at the cervix. [employer] evaluated and recommended outaptient follow up (7) DM2 (diabetes mellitus, type 2): Qualifiers: Diabetes mellitus complication status: with circulatory complication Diabetes mellitus complication detail: with other circulatory complications Code(s): E11.9 - Type 2 diabetes mellitus without complications Status: Chronic Assessment and Plan: * Accuchecks, SSI, and hypoglycemic protocol. * HgbA1C 9.1% on 08/30/24. (8) Hypokalemia: Code(s): E87.6 - Hypokalemia Status: Acute Assessment and Plan: * Potassium 3.4. * Patient given Potassium Chloride 40 meq q4 x 1. * Trend labs. Plan DVT prophylaxis On Full dose Lovenox awaiting INR therapeutic range for discharge Subjective Date/time seen: 11/18/24 12:48 Interval history: Comfortable at bedside INR 1.8 today awaiting increase to 2 and above for discharge Review of Systems Review of Systems: All systems reviewed & are unremarkable except as noted in HPI and below Exam Const: General: comfortable, no acute distress and uncomfortable Other: Acute distress due to left upper quadrant pain which is slightly reproducible and shortness of breath. HENMT: Mouth: Yes moist mucous membranes Eyes: Pupils: Equal, round and reactive pupils present Neck: Neck: supple Resp: Effort & Inspection: normal respiratory effort Auscultation: crackles, wheezes expiratory wheezes and diminished lung sounds Other: Tachypneic at times Cardio: Rate: tachycardic Rhythm: abnormal rhythm regularly irregular (Afib 82.) Heart sounds: no gallops, no murmurs and no rubs Other: Telemetry- SR 81 GI: Auscultation: normal bowel sounds Other: Slightly distant, reported to be normal per the patient Neuro: Cranial nerves: Yes Equal, round and reactive pupils present Speech: normal speech Motor exam (neuro): 5/5 motor strength present throughout Sensory Exam: normal sensation Extrem: General: edema bilateral (2+) and pedal edema bilaterally 2+ Other: 2+ pitting edema of the bilateral lower extremities up to the knees Psych: Mental Status: mental status grossly normal Affect: normal affect Objective Data Vital Signs Vital Signs: Vital Signs - 24 hr 11/17/24 13:42 11/17/24 16:05 11/17/24 20:00 Temperature 97.1 F L Pulse Rate 76 79 Respiratory Rate 18 Blood Pressure 116/72 Pulse Oximetry 95 Oxygen Delivery Room Air 11/17/24 22:12 11/18/24 06:00 11/18/24 08:13 Temperature 97.0 F L 97.2 F L Pulse Rate 71 72 80 Respiratory Rate 16 18 Blood Pressure 105/67 103/57 L Pulse Oximetry 95 96 Oxygen Delivery 11/18/24 08:14 11/18/24 08:22 11/18/24 08:31 Temperature Pulse Rate Respiratory Rate Blood Pressure 104/70 Pulse Oximetry 96 Oxygen Delivery Room Air Room Air Intake/Output Intake/Output: Intake & Output 11/15/24 11/16/24 11/17/24 11/18/24 23:59 23:59 23:59 23:59 Intake Total 323 492 1588 1311 Balance 031 192 7321 1311 Meds/Results Medications: Active Medications Generic Name Dose Route Start Last Admin Trade Name Freq PRN Reason Stop Dose Admin Acetaminophen 650 mg 11/09/24 01:03 Acetaminophen 325 Mg Tablet PO Q4H PRN Mild Pain (1-3) or Fever Amlodipine Besylate 10 mg 11/10/24 09:00 11/17/24 09:07 Amlodipine Besylate 10 Mg Tablet PO 10 mg DAILY MASTER Administration Bumetanide 1 mg 11/16/24 09:00 11/18/24 08:14 Bumetanide 1 Mg Tablet PO 1 mg BID MASTER Administration Dextrose 12.5 gm 11/09/24 01:01 Dextrose 50% 25 Gm/50 Ml Syringe IV PUSH PRN PRN Hypoglycemia Protocol Diclofenac Sodium 1 applic 11/09/24 17:00 11/18/24 08:55 Diclofenac Sodium 1% 100 Gm Gel (*Bkc) TOPICAL 1 applic TID MASTER Administration Digoxin 125 mcg 11/09/24 09:00 11/18/24 08:13 Digoxin Tab 125 Mcg Tablet PO 125 mcg DAILY MASTER Administration Docusate Sodium 100 mg 11/10/24 09:55 11/12/24 09:34 Docusate Sodium 100 Mg Capsule PO 100 mg Q12H PRN Administration Constipation Empagliflozin 10 mg 11/14/24 09:00 11/18/24 08:14 Empagliflozin 10 Mg Tablet PO 10 mg DAILY MASTER Administration Enoxaparin Sodium 120 mg 11/09/24 17:00 11/18/24 04:03 Enoxaparin 120 Mg/0.8 Ml Syringe SUB-Q 120 mg Q12H MASTER Administration Gabapentin 300 mg 11/09/24 09:00 11/18/24 08:14 Gabapentin 300 Mg Capsule BY MOUTH 300 mg TID [facility] Administration Glucose 15 gm 11/09/24 01:01 Glucose Oral Gel 15 Gm Of Glucse In 37.5 Gm Tube PO PRN PRN Hypoglycemia Protocol Dextrose 1,000 mls @ 100 mls/hr 11/09/24 01:01 Dextrose 5% 1,000 Ml IVPB PRN PRN Hypoglycemia Protocol Insulin Aspart 2 - 5 units 11/09/24 08:00 11/18/24 08:55 Insulin Aspart (*Bkc) 100 Units/Ml SUB-Q 2 units TIDWM [facility] Administration Protocol Insulin Aspart 1 - 2 units 11/09/24 21:00 11/17/24 20:53 Insulin Aspart (*Bkc) 100 Units/Ml SUB-Q 1 units HS [facility] Administration Protocol Metoprolol Succinate 200 mg 11/09/24 09:00 11/18/24 08:14 Metoprolol Succinate Ext Rel 100 Mg Tabcr PO 200 mg DAILY [facility] Administration Morphine Sulfate 2 mg 11/09/24 01:03 11/10/24 03:37 Morphine Sulfate (*Crx) 2 Mg/Ml Inj IV PUSH 2 mg Q4H PRN Administration Pain Rated 7-10 Polyethylene Glycol 17 gm 11/10/24 09:55 11/18/24 08:16 Polyethylene Glycol 3350 17 Gm Powd.Pack PO [facility] Spironolactone 25 mg 11/12/24 09:00 11/18/24 08:14 Spironolactone 25 Mg Tablet PO 25 mg QAM [facility] Administration Tramadol HCl 25 mg 11/09/24 01:03 11/16/24 23:20 Tramadol Hcl (*Crx) 25 Mg Tablet PO 25 mg Q4H PRN Administration Pain Rated 4-6 Umeclidinium/Vilanterol 1 puff 11/14/24 11:25 11/18/24 08:25 Umeclidinium/Vilanterol 62.5-25 Mcg Ellipta INHALATION 1 puff DAILYRT [facility] Administration Warfarin Sodium 10 mg 11/15/24 17:00 11/17/24 17:27 Warfarin (*Pbkc) 10 Mg Tablet PO 10 mg DAILY@1700 [facility] Administration Radiology Results: ITS Impressions Chest CTA 11/09/24 11:12 Impression: No evidence of pulmonary embolus, aortic dissection, or aortic aneurysm. Minimal pericardial effusion. Small to moderate left pleural effusion and small right pleural effusion, with bilateral atelectatic change, left worse than right. Venous Doppler Study 11/09/24 16:04 IMPRESSION: 1. No deep venous thrombosis within the right lower extremity. 2.. Venous thrombosis of the posterior tibial and peroneal veins in the left lower extremity. Pelvis Ultrasound 11/09/24 16:35 IMPRESSION: Heterogeneous endometrial tissue which may indicate endometrial masses ,debris or hematoma. Further evaluation advised. Otherwise, normal pelvic ultrasound. Chest X-Ray 11/14/24 09:01 IMPRESSION: Cardiomegaly with cardiac decompensation and pulmonary edema. Superimposed pneumonia is highly suggestive more prominent in the lower lobes. Bilateral pleural effusion more on the right side Pelvis MRI 11/15/24 12:42 IMPRESSION: 1. Fibroid uterus including a 1.7 x 1.1 cm pedunculated submucosal fibroid extending into the endometrial canal. 2. 1 cm left ovarian cyst and multiple nabothian cysts at the cervix. Labs Labs: Laboratory Results - last 24 hr 11/11/24 11/17/24 11/17/24 13:26 16:40 20:24 WBC RBC Hgb Hct MCV MCH MCHC RDW Plt Count MPV Immature Gran % (Auto) Neut % (Auto) Lymph % (Auto) [place] % (Auto) Eos % (Auto) Baso % (Auto) Lymph # (Auto) [place] # (Auto) Eos # (Auto) Baso # (Auto) Abs Immat Gran (auto) Absolute Neuts (auto) Absolute Nucleated RBC Nucleated RBC % PT INR Sodium Potassium Chloride Carbon Dioxide Anion Gap BUN Creatinine Estim Creat Clear Calc Estimated GFR Glucose POC Capillary Glucose 227 H 235 H Calcium Magnesium Total Bilirubin AST ALT Alkaline Phosphatase Total Protein Albumin SARS-CoV-2 RNA (RT-PCR) Not detected 11/18/24 11/18/24 11/18/24 05: 08:18 11:50 WBC 7.0 RBC 4.84 Hgb 14.4 Hct 43.9 MCV 90.7 MCH 29.8 MCHC 32.8 RDW 13.8 Plt Count 369 MPV 10.6 H Immature Gran % (Auto) 3.9 H Neut % (Auto) 66.3 Lymph % (Auto) 18.4 [place] % (Auto) 8.9 H Eos % (Auto) 1.4 Baso % (Auto) 1.1 Lymph # (Auto) 1.28 [place] # (Auto) 0.6 Eos # (Auto) 0.1 Baso # (Auto) 0.1 Abs Immat Gran (auto) 0.27 H Absolute Neuts (auto) 4.6 Absolute Nucleated RBC 0.000 Nucleated RBC % 0.0 PT 21.2 H INR 1.8 Sodium 130 L Potassium 3.3 L Chloride 86 L Carbon Dioxide 35 H Anion Gap 9 BUN 32 H Creatinine 1.14 H Estim Creat Clear Calc 49 Estimated GFR 47 L Glucose 185 H POC Capillary Glucose 211 H 231 H Calcium 8.8 Magnesium 2.3 Total Bilirubin 0.6 AST 43 H ALT 55 H Alkaline Phosphatase 123 Total Protein 7.0 Albumin 3.9 SARS-CoV-2 RNA (RT-PCR) Quality VTE Prophylaxis VTE prophylaxis: pharmacologic ordered
--- NOTE | 2024-11-18 13:08 | PCRCNOTE ---
NOCTURNAL HOME OXYGEN SET UP WITH IV & RESPIRATORY CARE. PHONE NUMBER . PT TO CALL WHEN DISCHARGING
[2024-11-18 14:00] VITALS: BP 110/68; PULSE 84; RESP 18; TEMP 36.3; O2SAT 97
[2024-11-18 16:46] LABS: Glucose Point of Care 209 mg/dl (65-105)
[2024-11-18 17:43] LABS: Adenovirus DNA Not Detected (Not Detected); Chlamydophila pneumoniae Not Detected (Not Detected); Coronavirus 229E Not Detected (Not Detected); Coronavirus HKU1 Not Detected (Not Detected); Coronavirus NL63 Not Detected (Not Detected); Coronavirus OC43 Not Detected (Not Detected); Human Metapneumovirus Detected (Not Detected); Human Parainfluenza Virus 1 Not Detected (Not Detected); Human Parainfluenza Virus 2 Not Detected (Not Detected); Human Parainfluenza Virus 3 Not Detected (Not Detected); Human Parainfluenza Virus 4 Not Detected (Not Detected); Human RSV B Not Detected (Not Detected); Influenza A Not Detected (Not Detected); Influenza B Not Detected (Not Detected); Mycoplasma pneumoniae Not Detected (Not Detected); Rhinovirus/Enterovirus Not Detected (Not Detected)
[2024-11-18] MEDS: WARFARIN (*PBKC) 10 MG TABLET PO (17:49)
[2024-11-18 21:57] VITALS: BP 127/75; PULSE 74; RESP 16; TEMP 36.3; O2SAT 95
[2024-11-19] MEDS: ENOXAPARIN 120 MG/0.8 ML SYRINGE SUB-Q (04:31)
[2024-11-19 05:12] LABS: Glucose Point of Care 228 mg/dl (65-105)
[2024-11-19 05:19] VITALS: BP 120/79; PULSE 78; RESP 18; TEMP 36.1; O2SAT 97
[2024-11-19 06:39] LABS: Alanine Aminotransferase 50 U/L (6-35); Albumin Level 3.9 g/dL (3.5-5.1); Alkaline Phosphatase 118 U/L (38-126); Anion Gap 10 mmol/L (4-12); Aspartate Amino Transferase 41 U/L (14-36); Bilirubin,Total 0.6 mg/dL (0.2-1.3); Blood Urea Nitrogen 38 mg/dL (7-17); Calcium 8.8 mg/dL (8.4-10.2); Carbon Dioxide 31 mmol/L (22-30); Chloride 89 mmol/L (98-107); Estimated CRCL calculation 45 ml/min; Estimated Glomerular Filt Rate 42; Glucose 179 mg/dL (65-110); Magnesium 2.3 mg/dL (1.6-2.3); Potassium 3.3 mmol/L (3.4-5.0); Sodium 130 mmol/L (137-145)
[2024-11-19 06:48] LABS: INR 1.9; Prothrombin Time 22.5 Seconds (11.1-14.7)
[2024-11-19 07:40] VITALS: PULSE 70; RESP 12; O2SAT 95
[2024-11-19] MEDS: UMECLIDINIUM/VILANTEROL 62.5-25 MCG ELLIPTA 1 PUFF INHALATION (07:40)
[2024-11-19 08:00] VITALS: O2SAT 95
[2024-11-19 08:19] LABS: Glucose Point of Care 200 mg/dl (65-105)
[2024-11-19] MEDS: polyethylene glycoL 3350 17 GM POWD.PACK PO (08:24)
[2024-11-19] MEDS: METOPROLOL SUCCINATE EXT REL 100 MG TABCR 200 MG PO (08:24)
[2024-11-19] MEDS: GABAPENTIN 300 MG CAPSULE BY MOUTH ×2 (08:24→13:03)
[2024-11-19] MEDS: SPIRONOLACTONE 25 MG TABLET PO (08:24)
[2024-11-19] MEDS: EMPAGLIFLOZIN 10 MG TABLET PO (08:24)
[2024-11-19] MEDS: DIGOXIN TAB 125 MCG TABLET PO (08:24)
[2024-11-19] MEDS: BUMETANIDE 1 MG TABLET PO (08:24)
[2024-11-19] MEDS: DICLOFENAC SODIUM 1% 100 GM GEL (*BKC) 1 APPLIC TOPICAL ×2 (08:27→13:03)
[2024-11-19 12:27] LABS: Glucose Point of Care 265 mg/dl (65-105)
--- NOTE | 2024-11-19 12:33 | P.DS_ITS ---
DS: Admitting Diagnosis Discharge Date 11/19/24 Admitting Diagnosis Abdominal pain DS: Discharge Diagnosis Discharge Diagnosis (1) Heart failure with reduced ejection fraction: Code(s): I50.20 - Unspecified systolic (congestive) heart failure Status: Acute Assessment and Plan: * BNP 2285>1870>2410>1370 * 11/11/24 Patient had worsening shortness of breath overnight. Patient immediately placed on BiPAP. Improved symptomatology. She has significant wet crackles diffusely. No wheezing, no stridor. Stat chest x-ray demonstrates severe pulmonary edema. Lower extremities still with 2+ pitting edema bilaterally below the knees. Daily weights and urine output unclear per the nursing team as she has been going in her depends. ABG pCO2 43.8, pH 7.413. Given Lasix 80 mg IV x1. * Echocardiogram: Summary 1. Complete two-dimensional, color flow and Doppler transthoracic echocardiogram is performed. 2. Left ventricular chamber dimension is normal. 3. Left ventricular systolic function is normal, estimated at 60-65%. 4. The left ventricular diastolic function is abnormal. 5. E/e' 16 is elevated. 6. Atrial fibrillation. 7. Left atrial chamber dimension is moderately enlarged. 8. Right atrial chamber dimension is mildly enlarged. 9. There is mild aortic valve sclerosis. 10. There is trace mitral valve regurgitation. 11. No pulmonary hypertension, estimated pulmonary arterial systolic pressure is 30 mmHg. 12. There is trivial pericardial effusion. * Furosemide 40 mg ivp BID. * Metolazone 2.5 mg PO at 8:30 am. * Spironolactone 25 mg PO qam. * Jardiance 10 mg PO daily added. * Daily weights. * Strict I&O's. * Fluid restriction 1500 ml. * Cardiology consult, appreciate recommendations. (2) Paroxysmal atrial fibrillation: Code(s): I48.0 - Paroxysmal atrial fibrillation Status: Chronic Assessment and Plan: * Patient was taking Eliquis 5 mg PO BID for one month, stopped on 11/09 and started back on Coumadin. LE dopplers positive for a DVT LLE. Switched on 11/09 to Enoxaprin 120 mg subq q 12 and increase Coumadin 10 mg PO daily. * Metoprolol Succinate 200 mg PO daily. * awaiting INR therapeutic range, as patient does not have the ability to check INR daily at home (3) COPD (chronic obstructive pulmonary disease): Code(s): J44.9 - Chronic obstructive pulmonary disease, unspecified Status: Inactive Assessment and Plan: * Antibiotics discontinued on 11/12/24. * Guaifenesin 1,200 mg PO BID. * Incentive Spirometer. * Ipratropium 0.5 mg Neb q 4 switched to Anoro Ellipta 1 pugg daily. * WBC improving from 15.7>14.1>13.4>8.8>7.4>6.8>7.0>8.5. * 11/09/24- ABG: pH 7.438, pC02 36.1, p02 59.9, 02 saturation 92.0. * Pulmonology consult, appreciate recommendations. (4) ZARAGOZA (dyspnea on exertion): Code(s): R06.09 - Other forms of dyspnea Status: Acute Assessment and Plan: * D dimer 1.70. Chest CTA negative. * LE dopplers:IMPRESSION: 1. No deep venous thrombosis within the right lower extremity. 2.. Venous thrombosis of the posterior tibial and peroneal veins in the left lower extremity. * Pulmonology consult, appreciate recommendations. * Better. Weaned to room air with Sa02 95%. * 2 liters at night per apnea link study (5) Deep vein thrombosis (DVT) of left lower extremity: Code(s): I82.402 - Acute embolism and thrombosis of unspecified deep veins of left lower extremity Status: Acute Assessment and Plan: * LE doppler: IMPRESSION: 1. No deep venous thrombosis within the right lower extremity. 2.. Venous thrombosis of the posterior tibial and peroneal veins in the left lower extremity. * Patient reported that she was previously on Coumadin. Patient switched to Eliquis a month ago. Patient reports compliance with Eliquis. * Stopped Eliquis on 11/09 and restarted Warfarin with Lovenox bridge. * Lovenox 120 mg subq q12. INR 1.7. Increased Warfarin 10 mg PO daily. * Monitor PT/INR daily. (6) Abdominal pain: Code(s): R10.9 - Unspecified abdominal pain Status: Acute Assessment and Plan: MRI Pelvis showed fibroid 1.7 x 1.1cm pedunculated fibroid extending into the endometrial canal and 1 cm left ovarian cyst and multiple nabothian cysts at the cervix. FISHER WEIR evaluated and recommended outaptient follow up (7) DM2 (diabetes mellitus, type 2): Qualifiers: Diabetes mellitus complication status: with circulatory complication Diabetes mellitus complication detail: with other circulatory complications Code(s): E11.9 - Type 2 diabetes mellitus without complications Status: Chronic Assessment and Plan: * Accuchecks, SSI, and hypoglycemic protocol. * HgbA1C 9.1% on 08/30/24. (8) Hypokalemia: Code(s): E87.6 - Hypokalemia Status: Acute Assessment and Plan: * Potassium 3.4. * Patient given Potassium Chloride 40 meq q4 x 1. * Trend labs. Plan DVT prophylaxis On Full dose Lovenox awaiting INR therapeutic range for discharge DS: Summary Time Spent with Patient Time attestation: Total time spent providing and/or coordinating discharge services: Exam Const: General: comfortable, no acute distress and uncomfortable Other: Acute distress due to left upper quadrant pain which is slightly reproducible and shortness of breath. HENMT: Mouth: Yes moist mucous membranes Eyes: Pupils: Equal, round and reactive pupils present Neck: Neck: supple Resp: Effort & Inspection: normal respiratory effort Auscultation: crackles, wheezes expiratory wheezes and diminished lung sounds Other: Tachypneic at times Cardio: Rate: tachycardic Rhythm: abnormal rhythm regularly irregular (Afib 82.) Heart sounds: no gallops, no murmurs and no rubs Other: Telemetry- SR 81 GI: Auscultation: normal bowel sounds Other: Slightly distant, reported to be normal per the patient Neuro: Cranial nerves: Yes Equal, round and reactive pupils present Speech: normal speech Motor exam (neuro): 5/5 motor strength present throughout Sensory Exam: normal sensation Extrem: General: edema bilateral (2+) and pedal edema bilaterally 2+ Other: 2+ pitting edema of the bilateral lower extremities up to the knees Psych: Mental Status: mental status grossly normal Affect: normal affect DS: Data Data Completed and Pending Labs on day of discharge: Labs from last 24 hours 11/19/24 11/19/24 11/19/24 12:22 08:13 05:19 PT 22.5 H INR 1.9 Sodium 130 L Potassium 3.3 L Chloride 89 L Carbon Dioxide 31 H Anion Gap 10 BUN 38 H Creatinine 1.25 H Estim Creat Clear Calc 45 Estimated GFR 42 L Glucose 179 H POC Capillary Glucose 265 H 200 H Calcium 8.8 Magnesium 2.3 Total Bilirubin 0.6 AST 41 H ALT 50 H Alkaline Phosphatase 118 Total Protein 7.0 Albumin 3.9 Nasal RSV Type A (PCR) Nasal RSV Type B (PCR) Chlamy pneumoniae PCR Adenovirus DNA Human Bocavirus (FRANCISCO) Coronavirus Type OC43 Coronavirus Type HKU1 Coronavirus Type 229E Coronavirus Type NL63 Human Metapneumovir PCR Influenza A (PCR) Influenza A (H1) RNA Influenza A (H3) PCR M. pneumoniae DNA Parainfluenza PCR Parainfluenza 2 (PCR) Parainfluenza 3 RNA (PCR) Parainfluenza 4 (PCR) Rhino/Enterovirus (FRANCISCO) Influenza Type B (PCR) Misc Test Comment 11/18/24 11/18/24 11/11/24 20:43 16:41 13:26 PT INR Sodium Potassium Chloride Carbon Dioxide Anion Gap BUN Creatinine Estim Creat Clear Calc Estimated GFR Glucose POC Capillary Glucose 228 H 209 H Calcium Magnesium Total Bilirubin AST ALT Alkaline Phosphatase Total Protein Albumin Nasal RSV Type A (PCR) Not detected Nasal RSV Type B (PCR) Not detected Chlamy pneumoniae PCR Not detected Adenovirus DNA Not detected Human Bocavirus (FRANCISCO) Not detected Coronavirus Type OC43 Not detected Coronavirus Type HKU1 Not detected Coronavirus Type 229E Not detected Coronavirus Type NL63 Not detected Human Metapneumovir PCR Detected A Influenza A (PCR) Not detected Influenza A (H1) RNA Not detected Influenza A (H3) PCR Not detected M. pneumoniae DNA Not detected Parainfluenza PCR Not detected Parainfluenza 2 (PCR) Not detected Parainfluenza 3 RNA (PCR) Not detected Parainfluenza 4 (PCR) Not detected Rhino/Enterovirus (FRANCISCO) Not detected Influenza Type B (PCR) Not detected Misc Test Comment see note Discharge Plan Discharge Attending physician on discharge: Rylee Meyer Consulting providers: Bettina Pollock; Dewayne Vallejo; Shaggy Jimenez Discharging Clinician: Rylee Meyer Anticipated Discharge Date/Time: 11/19/24 11:52 Patient Disposition: Home Activity: as tolerated Diet: as tolerated Patient Instructions: Antibiotic Form, Apixaban (By mouth), Heart Failure (GEN) Patient Language: Hungarian Stand Alone Forms: General Discharge Information Follow-up/Referrals: Júnior Leung DO [Primary Care Provider] - (F/u with PCP in 3-5 days ) Bettina Pollock MD [Physician] - (F/u with Pulmonology as instructed ) Shaggy Jimenez DO [Physician] - (F/u with cardiology as instructed ) Dewayne Vallejo MD [Physician] - (F/u with FISHER WEIR as instructed ) Discharge Medications: New Jardiance 10 mg Tablet 10 mg PO DAILY 30 Days Qty: 30 1RF bumetanide 1 mg Tablet 1 mg PO BID 30 Days Qty: 60 1RF spironolactone 25 mg Tablet 25 mg PO QAM 30 Days Qty: 30 1RF warfarin 10 mg tablet 10 mg PO DAILY 30 Days Qty: 30 1RF Continued Mounjaro 2.5 mg/0.5 mL pen injector 2.5 mg subcut WEEKLY Qty: 2 0RF Rx Instructions: *SAMPLE* LOT: [id number] EXP: 01/20/26 4 PENS GIVEN amlodipine 10 mg tablet 10 mg PO DAILY Qty: 90 3RF Breztri Aerosphere 160-9-4.8 mcg/actuation HFA aerosol inhaler 2 inh inhalation QAM AND QPM Qty: 10.7 2RF Rx Instructions: *SAMPLE* LOT: [id number] EXP: 03/2027 [facility]: 5523-0505-73 2 BOXES GIVEN digoxin 125 mcg (0.125 mg) tablet 125 mcg PO DAILY metoprolol succinate 200 mg tablet extended release 24 hr 200 mg PO DAILY albuterol sulfate 90 mcg/actuation HFA aerosol inhaler 1 inh inhalation Q4H PRN (Reason: shortness of breath or wheezing) Qty: 8.5 0RF gabapentin 300 mg capsule See Rx Instructions .ROUTE .COMPLEX Qty: 270 0RF Dose Instruction: TAKE 1 CAPSULE BY MOUTH THREE TIMES A DAY Rx Instructions: TAKE 1 CAPSULE BY MOUTH THREE TIMES A DAY (DME) lancets [OneTouch Delica Plus Lancet] 30 gauge misc See Rx Instructions .ROUTE .COMPLEX Qty: 100 2RF Dose Instruction: TEST DAILY DIRECTED Rx Instructions: Test blood sugar three times daily allopurinol 100 mg tablet See Rx Instructions .ROUTE .COMPLEX Qty: 180 0RF Dose Instruction: TAKE 2 TABLETS BY MOUTH TWO TIMES A DAY Rx Instructions: TAKE 2 TABLETS BY MOUTH TWO TIMES A DAY (DME) OneTouch Verio test strips Strip See Rx Instructions .ROUTE .COMPLEX Qty: 100 4RF Dose Instruction: TEST DAILY DIRECTED Rx Instructions: TEST DAILY DIRECTED Discontinued torsemide 100 mg tablet 100 mg PO QAM Qty: 90 3RF apixaban 5 mg tablet 5 mg PO BID Qty: 90 0RF Date of admission: 11/10/24 09:37 Primary Care Provider: Júnior Leung Admitting Provider: Talia Cruz Attending physician on admission: Talia Cruz Quality VTE Prophylaxis VTE prophylaxis: pharmacologic ordered
--- NOTE | 2024-11-19 12:39 | P.DS_ITS ---
DS: Admitting Diagnosis Discharge Date 11/19/24 Admitting Diagnosis Abdominal Pain DS: Discharge Diagnosis Discharge Diagnosis (1) Heart failure with reduced ejection fraction and diastolic dysfunction: Code(s): I50.40 - Unspecified combined systolic (congestive) and diastolic (congestive) heart failure Status: Chronic (2) Deep vein thrombosis (DVT) of left lower extremity: Code(s): I82.402 - Acute embolism and thrombosis of unspecified deep veins of left lower extremity Status: Acute DS: Summary Hospital Course Hospital Course: This is a 69-year-old female with a history of morbid obesity with BMI 48, heart failure with reduced ejection fraction and combined diastolic dysfunction, COPD, prior tobacco dependence, gtk-[id number]-jxmaatdpx diabetes mellitus, CKD stage 3, gout, paroxysmal AFib on Eliquis, hypertension, hyperlipidemia she presented to [facility] on 11/08/2024 with complaint of neck pain which had been going on for about 3 days. She denied any prior trauma or surgery. However that pain resolved and she developed left upper quadrant pain. She also reported shortness of breath to the ER physician however upon arrival to [facility] she denied it albeit was in clear respiratory distress. She also admits to nausea but no vomiting. 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 She otherwise has not had any increase distension of her abdomen. She does not know if she has gained weight, she has swelling on her legs per reports that her usual. Evaluation at [facility] revealed atrial fibrillation rate controlled, tachypnea, blood pressure 119/75, saturating 93% on room air. WBC count 15.7, sodium 133, potassium 3.3, chloride 95, BUN 19, serum creatinine 1.50, glucose 428 than 339, lactic acid 2.7 then 3.1. She received a diuretic but did not urinate in response. Troponin 76.62083.5. High limit of normal is 60.4. CRP 23, BNP 2285, EKG without any acute ischemia. A subsequent CT chest abdomen pelvis with contrast revealed a small left-sided pleural effusion with adjacent compressive atelectasis, small pericardial effusion, lobe enlargement of bilateral ovaries and uterus, fatty infiltration of an enlarged liver. She was subsequently transferred to [facility] for further evaluation and treatment. Patient was managed for CHF exacerbation, cardiology was consulted and she was started on Diureses and eventually weaned to Bumex 1mg bid, Spironolactone and Jardiance. Patient will continue follow up with Cardiology as instructed Also managed for DVT which happened despite patient being on Eliquis, thus patient was placed on Warfarin 10mg and Lovenox. INR went from 1.3 to 1.9 today,I discussed with her that since her INR is steadily trending up she will be discharged and will and it is expected that her INR will be therapeutic tomorrow and will she will repeat INR on Thursday and call her PCP's office on Thursday for close monitoring. Pulmonology was consulted and she was managed for COPD exacerbation. Was on bronchodilators and will continue bronchodilators adn nighttime 2 liters oxygen. MRI Pelvis showed fibroid and left ovarian cysts and HEMATOLOGY TECHNICIAN was consulted, evaluated patient and recommended outpatient follow up. F/u with PCP in 3-5 days, F/u with cardiology, pulmonology and HEMATOLOGY TECHNICIAN as instructed Time Spent with Patient Time attestation: Total time spent providing and/or coordinating discharge services: DS: Data Data Completed and Pending Labs on day of discharge: Labs from last 24 hours 11/19/24 11/19/24 11/19/24 12:22 08:13 05:19 PT 22.5 H INR 1.9 Sodium 130 L Potassium 3.3 L Chloride 89 L Carbon Dioxide 31 H Anion Gap 10 BUN 38 H Creatinine 1.25 H Estim Creat Clear Calc 45 Estimated GFR 42 L Glucose 179 H POC Capillary Glucose 265 H 200 H Calcium 8.8 Magnesium 2.3 Total Bilirubin 0.6 AST 41 H ALT 50 H Alkaline Phosphatase 118 Total Protein 7.0 Albumin 3.9 Nasal RSV Type A (PCR) Nasal RSV Type B (PCR) Chlamy pneumoniae PCR Adenovirus DNA Human Bocavirus (FRANCISCO) Coronavirus Type OC43 Coronavirus Type HKU1 Coronavirus Type 229E Coronavirus Type NL63 Human Metapneumovir PCR Influenza A (PCR) Influenza A (H1) RNA Influenza A (H3) PCR M. pneumoniae DNA Parainfluenza PCR Parainfluenza 2 (PCR) Parainfluenza 3 RNA (PCR) Parainfluenza 4 (PCR) Rhino/Enterovirus (FRANCISCO) Influenza Type B (PCR) Misc Test Comment 11/18/24 11/18/24 11/11/24 20:43 16:41 13:26 PT INR Sodium Potassium Chloride Carbon Dioxide Anion Gap BUN Creatinine Estim Creat Clear Calc Estimated GFR Glucose POC Capillary Glucose 228 H 209 H Calcium Magnesium Total Bilirubin AST ALT Alkaline Phosphatase Total Protein Albumin Nasal RSV Type A (PCR) Not detected Nasal RSV Type B (PCR) Not detected Chlamy pneumoniae PCR Not detected Adenovirus DNA Not detected Human Bocavirus (FRANCISCO) Not detected Coronavirus Type OC43 Not detected Coronavirus Type HKU1 Not detected Coronavirus Type 229E Not detected Coronavirus Type NL63 Not detected Human Metapneumovir PCR Detected A Influenza A (PCR) Not detected Influenza A (H1) RNA Not detected Influenza A (H3) PCR Not detected M. pneumoniae DNA Not detected Parainfluenza PCR Not detected Parainfluenza 2 (PCR) Not detected Parainfluenza 3 RNA (PCR) Not detected Parainfluenza 4 (PCR) Not detected Rhino/Enterovirus (FRANCISCO) Not detected Influenza Type B (PCR) Not detected Misc Test Comment see note Discharge Plan Discharge Attending physician on discharge: Rylee Meyer Consulting providers: Bettina Pollock; Dewayne Vallejo; Shaggy Jimenez Discharging Clinician: Rylee Meyer Anticipated Discharge Date/Time: 11/19/24 11:52 Patient Disposition: Home Activity: as tolerated Diet: as tolerated Patient Instructions: Antibiotic Form, Apixaban (By mouth), Heart Failure (GEN) Patient Language: Israeli Stand Alone Forms: General Discharge Information Follow-up/Referrals: Júnior Leung DO [Primary Care Provider] - (F/u with PCP in 3-5 days ) Bettina Pollock MD [Physician] - (F/u with Pulmonology as instructed ) Shaggy Jimenez DO [Physician] - (F/u with cardiology as instructed ) Dewayne Vallejo MD [Physician] - (F/u with HEMATOLOGY TECHNICIAN as instructed ) Discharge Medications: New Jardiance 10 mg Tablet 10 mg PO DAILY 30 Days Qty: 30 1RF bumetanide 1 mg Tablet 1 mg PO BID 30 Days Qty: 60 1RF spironolactone 25 mg Tablet 25 mg PO QAM 30 Days Qty: 30 1RF warfarin 10 mg tablet 10 mg PO DAILY 30 Days Qty: 30 1RF Continued Mounjaro 2.5 mg/0.5 mL pen injector 2.5 mg subcut WEEKLY Qty: 2 0RF Rx Instructions: *SAMPLE* LOT: [id number] EXP: 01/20/26 4 PENS GIVEN amlodipine 10 mg tablet 10 mg PO DAILY Qty: 90 3RF Breztri Aerosphere 160-9-4.8 mcg/actuation HFA aerosol inhaler 2 inh inhalation QAM AND QPM Qty: 10.7 2RF Rx Instructions: *SAMPLE* LOT: [id number] EXP: 03/2027 [facility]: 8083-1339-25 2 BOXES GIVEN digoxin 125 mcg (0.125 mg) tablet 125 mcg PO DAILY metoprolol succinate 200 mg tablet extended release 24 hr 200 mg PO DAILY albuterol sulfate 90 mcg/actuation HFA aerosol inhaler 1 inh inhalation Q4H PRN (Reason: shortness of breath or wheezing) Qty: 8.5 0RF gabapentin 300 mg capsule See Rx Instructions .ROUTE .COMPLEX Qty: 270 0RF Dose Instruction: TAKE 1 CAPSULE BY MOUTH THREE TIMES A DAY Rx Instructions: TAKE 1 CAPSULE BY MOUTH THREE TIMES A DAY (DME) lancets [OneTouch Delica Plus Lancet] 30 gauge misc See Rx Instructions .ROUTE .COMPLEX Qty: 100 2RF Dose Instruction: TEST DAILY DIRECTED Rx Instructions: Test blood sugar three times daily allopurinol 100 mg tablet See Rx Instructions .ROUTE .COMPLEX Qty: 180 0RF Dose Instruction: TAKE 2 TABLETS BY MOUTH TWO TIMES A DAY Rx Instructions: TAKE 2 TABLETS BY MOUTH TWO TIMES A DAY (DME) OneTouch Verio test strips Strip See Rx Instructions .ROUTE .COMPLEX Qty: 100 4RF Dose Instruction: TEST DAILY DIRECTED Rx Instructions: TEST DAILY DIRECTED Discontinued torsemide 100 mg tablet 100 mg PO QAM Qty: 90 3RF apixaban 5 mg tablet 5 mg PO BID Qty: 90 0RF Other Ambulatory Orders: Prothrombin Time INR (Routine) Timeframe: [id number] Location: Determined by Patient Ordered By: Rylee Meyer Date of admission: 11/10/24 09:37 Primary Care Provider: Júnior Leung Admitting Provider: Talia Cruz Attending physician on admission: Talia Cruz Condition: Improved
== END 2024-11-19 14:15 | disposition home or self-care (01) | DRG 291 ==
LOC: ANHIMU 11-10 10:08 → ANH3MED 11-19 12:03 → ANHIMU 11-21 09:15
PROVIDERS: Internal Medicine Critical Care Medicine; Internal Medicine Pulmonary Disease; Nurse Practitioner Family; Admitting Provider General Practice; PCP Family Medicine; Visit Provider Internal Medicine
DX: I13.0 Hypertensive heart and chronic kidney disease with heart failure and stage 1 through stage 4 chronic kidney disease, or unspecified chronic kidney disease (principal); I50.43 Acute on chronic combined systolic (congestive) and diastolic (congestive) heart failure; J96.01 Acute respiratory failure with hypoxia; I82.442 Acute embolism and thrombosis of left tibial vein; I82.452 Acute embolism and thrombosis of left peroneal vein; J44.1 Chronic obstructive pulmonary disease with (acute) exacerbation; Z68.42 Body mass index [BMI] 45.0-49.9, adult; I48.0 Paroxysmal atrial fibrillation; N18.30 Chronic kidney disease, stage 3 unspecified; E11.22 Type 2 diabetes mellitus with diabetic chronic kidney disease; E78.5 Hyperlipidemia, unspecified; E87.6 Hypokalemia; E66.01 Morbid (severe) obesity due to excess calories; D25.9 Leiomyoma of uterus, unspecified; N83.202 Unspecified ovarian cyst, left side; Z96.642 Presence of left artificial hip joint; Z79.01 Long term (current) use of anticoagulants
CPT/HCPCS: 36415; 36600; 71045; 71275; 72197; 76856; 80048; 80053; 82375; 82805; 82948; 83050; 83605; 83735; 83880; 84145; 84484; 85018; 85025; 85380; 85610; 85730; 87040; 87070; 87205; 87633; 87637; 93005; 93306; 93970; 94002; 94640; 94660; 94762; 97110; 97161; 97165; 97530; 97535; A9270; A9579; G0378; J0456; J0696; J1650; J1815; J1938; J2270; J3475; Q9967

== ENCOUNTER 2024-11-21 10:50 | Outpatient (CLI) | payer OTHER, SELFPAY ==
[2024-11-21 11:26] LABS: INR 1.7; Prothrombin Time 17.8 Seconds (9.50-12.1)
[2024-11-21 11:34] LABS: Alanine Aminotransferase 42 U/L (14-59); Albumin Level 3.5 g/dL (3.4-5.0); Alkaline Phosphatase 110 U/L (46-116); Anion Gap 11 mmol/L (4-12); Aspartate Amino Transferase 64 U/L (15-37); Bilirubin,Total 0.6 mg/dL (0.00-1.00); Blood Urea Nitrogen 37 mg/dL (7-18); Calcium 9.4 mg/dL (8.5-10.1); Carbon Dioxide 30 mmol/L (21-32); Chloride 90 mmol/L (98-108); Estimated Glomerular Filt Rate 30; Glucose 227 mg/dL (70-99); Osmolality Calculated 287 mOsm/kg (285-295); Potassium 3.7 mmol/L (3.5-5.1); Sodium 131 mmol/L (136-145); Total Protein 7.8 g/dL (6.4-8.2)
--- OUTSIDE RECORDS SUMMARY | 2024-11-21 11:47 | XMS_ITS | Clinical Summary ---
Author Organization [facility] Address [address] [place] [address] Care Team Providers Care Foreign Car Mechanic Name Role Phone CristinaRadha goinsteresa DURON Primary Care Provider [phone] Eun Hu MD Unavailable [phone] Allergies No known active allergies Medications [...] CDT Gender Identity Female 08/05/2021 11:22 AM STATE PILOT Sexual Orientation Straight 08/05/2021 11 :22 AM STATE PILOT Occupation Industry Job Start Date Job End Date retired Not on file Not on file Not on file Last Filed Vital Signs Vital Sign Reading Time Taken Comments Blood Pressure 141/88 10/02/2021 9:52 AM CDT Pulse 73 10/02/2021 9:51 AM CDT Temperature 36.5 C (97.7 F) 08/10/2021 7:52 AM STATE PILOT Respiratory Rate 20 10/02/2021 9:51 AM CDT [...] Billing Address Personal/Family Self 1955 [address] [place] [address] MEDICAID [employer] Advance Directives * Full Code (Latest Code Status on File) Date Activated Date Inactivated Comments 08/08/2021 12:28 PM 08/10/2021 1:35 PM Care Teams Foreign Car Mechanic Relationship Specialty Start Date End Date Júnior Leung DO [address] [place] [address] PCP - General FAMILY PRACTICE 07/11/20 Eun Hu MD [address] [place] [address] INTERVENTIONAL CARDIOLOGY 07/11/20
--- OUTSIDE RECORDS SUMMARY | 2024-11-21 11:47 | XMS_ITS ---
Author Organization Unknown Address [address] [place] [phone] Phone Care Team Providers Care Electric Organ Assembler Name Role Phone JADEN CLYDE Attending Unavailable [facility] Primary Unavailable Immunization Immunization Date [...] Smoking History Unknown if ever smoked [id number] Sex Female Hospital Discharge Instructions Should you have any questions prior to discharge, please contact a member of your healthcare team. If you have left the hospital and have any questions, please contact your primary care physician. Reason For Referral No Data Found Plan of Treatment US Echo With Color (23206) 04/21/2024 NM Spect Perf Rest Stress Multi (26867) 06/02/2024 Stress Test Chemical 06/02/2024 NM Spect Perf Rest Stress Multi (66281) 06/02/2024 Stress Test Chemical 06/02/2024 Encounters Encounter Diagnosis Start Date Code Code Sys tem Heart failure, unspecified 06/02/2024 S NOMED-CT Personal Care Team Section Performer Name Performer Role Active Date Inactive EDDIE Harry PCP - Primary care physician 2024-04-20 2
--- OUTSIDE RECORDS SUMMARY | 2024-11-21 11:47 | XMS_ITS | Encounter Summary ---
Author Organization [facility] Address [address] [place] [address] Care Team Providers Care Sleeping Bag Filler Name Role Phone Ricci Marshall MD Unavailable Unavailab Júnior Huynh DO Primary Care Provider Eun Hu MD Unavailable [phone] Encounter Details Date Type Department Care Team (Late st Contact Info) Description 02/13/[address] [email or web address] [address] [place] [address] Ricci Marshall MD Social History Tobacco Use Types Packs/Day Years Used Date Smoking Tobacco: Never Alcohol Use Standard Drinks/Week Comments No 0 (1 standard drink = 0.6 oz pur e alcohol) Comments Unknown Sex and Gender Information Value Date Recorded Sex Assigned at Not on file Legal Sex Female 6:12 PM CDT Gender Identity Female 08/05/2021 11:22 AM NEUROLOGY EPILEPSY PHYSICIAN Sexual Orientation Straight 08/05/2021 11 :22 AM NEUROLOGY EPILEPSY PHYSICIAN Occupation Industry Job Start Date Job End Date retired Not on file Not on file Not on file documented as of this encounter Plan of Treatment Not on file documented as of this encounter Visit Diagnoses Not on filedocumented in this encounter Additional Health Concerns Infection Onset Date Last Indicated Resolved Time COVID-19 Rule Out 08/06/2021 08/06/2021 08/06/2021 2:29 PM NEUROLOGY EPILEPSY PHYSICIAN documented as of this encounter Care Teams Sleeping Bag Filler Relationship Specialty Start Date End Date Júnior Leung DO [address] [place] [address] PCP - General FAMILY PRACTICE 07/11/20 Ricci Marshall MD CARDIOVASCULAR DISEASE 02/13/16 07/10/20 Eun Hu MD [address] [place], [place] [id number] INTERVENTIONAL CARDIOLOGY 07/11/20 documented as of this encounter
--- OUTSIDE RECORDS SUMMARY | 2024-11-21 11:47 | XMS_ITS | Encounter Summary ---
Author Organization [facility] Address [address] [place] [address] Care Team Providers Care Triple Valve Tester Name Role Phone Júnior Leung DO Primary Care Provider [phone] Eun Hu MD Unavailable [phone] Encounter Details Date Type Department Care Team (Late st Contact Info) Description 10/29/2021 Abstract [facility] [address] Sara Stewart, [facility] [address] [place] [address] Social History Tobacco Use Types Packs/Day Years Used Date Smoking Tobacco: Never Smokeless Tobacco: Never Alcohol Use Standard Drinks/Week Comments No 0 (1 standard drink = 0.6 oz pur e alcohol) Comments Unknown Sex and Gender Information Value Date Recorded Sex Assigned at Not on file Legal Sex Female 6:12 PM CDT Gender Identity Female 08/05/2021 11:22 AM CLEAN RICE BROKER Sexual Orientation Straight 08/05/2021 11 :22 AM CLEAN RICE BROKER Occupation Industry Job Start Date Job End [...] Assessment Author Status No 08/08/2021 1:49 PM CLEAN RICE BROKER Activ e * RETIRED Are you blind or do you have serious difficulty seeing, even when wearing glasses? Answer Date of Assessment Author Status No 08/08/2021 1:49 PM CLEAN RICE BROKER Activ e * Do you have serious difficulty walking or climbing stairs? Answer Date of Assessment Author Status No 08/08/2021 1:49 PM CLEAN RICE BROKER Mackenzie Mendez R N Active * Do you have difficulty dressing or bathing? Answer Date of Assessment Author Status No 08/08/2021 1:49 PM CLEAN RICE BROKER Mackenzie Mendez R N Active * Because of a physical, mental, or emotional condition, do you have difficulty doing errands alone such as visiting a doctor's office or shopping? Answer Date of Assessment Author Status No 08/08/2021 1:49 PM CLEAN RICE BROKER Mackenzie Mendez R N Active documented as of this encounter Mental Status * Because of a physical, mental, or emotional condition, do you have serious difficulty concentrating, remembering, or making decisions? Answer Entry Date Author Status No 08/08/2021 1:49 PM CLEAN RICE BROKER Mackenzie Mendez R N Active documented in this encounter Plan of Treatment Not on file documented as of this encounter Procedures Procedure Name Priority Date/Time Associated Diagnosis Comments PROTHROMBIN TIME, VENOUS Routine 10/25/2021 Paroxysmal atrial fibrillation documented in this encounter Results * PROTHROMBIN TIME, VENOUS (10/25/2021) PROTIME WHOLE BLOOD 31.9 INR WHOLE BLOOD 3.20 10/25/2021 Sara Stewart [facility] Final Res ult documented in this encounter Visit Diagnoses Diagnosis Paroxysmal atrial fibrillation ([facility]CC [facility]/HCC) Atrial fibrillation documented in this encounter Care Teams Triple Valve Tester Relationship Specialty Start Date End Date Júnior Leung DO [address] [place] [address] PCP - General FAMILY PRACTICE 07/11/20 Eun Hu MD [address] [place] [address] INTERVENTIONAL CARDIOLOGY 07/11/20 documented as of this encounter
--- OUTSIDE RECORDS SUMMARY | 2024-11-21 11:47 | XMS_ITS ---
Author Organization Unknown Address [address] [place] [phone] Phone Care Team Providers Care Consulting Analyst Name Role Phone JADEN CLYDE Attending Unavailable [facility] Primary Unavailable Immunization Immunization Date Status [...] Smoking History Unknown if ever smoked [id number] Sex Female Hospital Discharge Instructions Should you have any questions prior to discharge, please contact a member of your healthcare team. If you have left the hospital and have any questions, please contact your primary care physician. Reason For Referral No Data Found Plan of Treatment US Echo With Color (26518) 04/21/2024 NM Spect Perf Rest Stress Multi (85344) 06/02/2024 Stress Test Chemical 06/02/2024 NM Spect Perf Rest Stress Multi (78663) 06/02/2024 Stress Test Chemical 06/02/2024 Encounters Encounter Diagnosis Start Date Code Code Sys tem Unspecified systolic (congestive) heart failure 2023 SNOMED-CT Personal Care Team Section Performer Name Performer Role Active Date Inactive EDDIE Harry PCP - Primary care physician 2024-04-2 2
--- OUTSIDE RECORDS SUMMARY | 2024-11-21 11:47 | XMS_ITS ---
Author Organization Unknown Address [address] [place] [phone] Phone Care Team Providers Care Polysomnographic Tech Name Role Phone JADEN CLYDE Attending Unavailable [facility] Primary Unavailable Immunization Immunization Date Status [...] Smoking History Unknown if ever smoked [id number] Sex Female Hospital Discharge Instructions Should you have any questions prior to discharge, please contact a member of your healthcare team. If you have left the hospital and have any questions, please contact your primary care physician. Reason For Referral No Data Found Plan of Treatment US Echo With Color (58251) 04/21/2024 NM Spect Perf Rest Stress Multi (53408) 06/02/2024 Stress Test Chemical 06/02/2024 NM Spect Perf Rest Stress Multi (82635) 06/02/2024 Stress Test Chemical 06/02/2024 Encounters Encounter Diagnosis Start Date Code Code Sys tem Unspecified atrial fibrillation 11/08/2024 SNOMED-CT Personal Care Team Section Performer Name Performer Role Active Date Inactive EDDIE Harry PCP - Primary care physician 2023-10-2 2
--- OUTSIDE RECORDS SUMMARY | 2024-11-21 11:47 | XMS_ITS ---
Author Organization Unknown Address [address] [place] [phone] Phone Care Team Providers Care Hammer Driver Name Role Phone JADEN CLYDE Attending Unavailable [facility] Primary Unavailable Immunization Immunization Date Status [...] Smoking History Unknown if ever smoked [id number] Sex Female Hospital Discharge Instructions Should you have any questions prior to discharge, please contact a member of your healthcare team. If you have left the hospital and have any questions, please contact your primary care physician. Reason For Referral No Data Found Plan of Treatment US Echo With Color (07277) 04/21/2024 NM Spect Perf Rest Stress Multi (68153) 06/02/2024 Stress Test Chemical 06/02/2024 NM Spect Perf Rest Stress Multi (39002) 06/02/2024 Stress Test Chemical 06/02/2024 Encounters Encounter Diagnosis Start Date Code Code Sys tem Unspecified atrial fibrillation 04/21/2024 SNOMED-CT Personal Care Team Section Performer Name Performer Role Active Date Inactive DEDIE Harry PCP - Primary care physician 2023-10-[address] [facility] 04/26/2024 14:[address] [address] RADIOLOGY REPORT Patient Number: [id number] Patient Name: ASHA MARTINEZ Type: O/P MR Number: [id number] : 1955 Age: 68 Sex: F Room #: Admit Date: 04/21/24 Discharge Date 04/21/24 Ordering Physician: JADEN TANG Family Physician: NO PCP Second Physician: X-Ray Number : [id number] US ECHO W/ COLOR [id number] COMPLETE:04/21/24 13:28 [facility] [id number] (REASON-ECHO COMPLTE: ATRIAL FIBRILLATION See Scanned Image Attachment for Report Dictated By: Heraclio Initials: Trans Date: 04/26/24 14:43 <<REPDIST>>
--- OUTSIDE RECORDS SUMMARY | 2024-11-21 11:48 | XMS_ITS | Encounter Summary ---
Author Organization [facility] Address [address] [place] [address] Care Team Providers Care Coffee Roaster Helper Name Role Phone Scottnick Júnior DURON Primary Care Provider [phone] Eun Hu MD Unavailable [phone] Encounter Details Date Type Department Care Team (Late st Contact Info) Description 01/10/2021 Hospital Orders Only [facility] Anesthesia [address] [place] [address] Gay Guevara Anesthesia Record Procedure Summary Procedure [...] CDT Gender Identity Female 08/05/2021 11:22 AM ACETYLENE OPERATOR Sexual Orientation Straight 08/05/2021 11 :22 AM ACETYLENE OPERATOR Occupation Industry Job Start Date Job [...] Rule Out 08/06/2021 08/06/2021 08/06/2021 2:29 PM ACETYLENE OPERATOR documented as of this encounter Care Teams Coffee Roaster Helper Relationship Specialty Start Date End Date Júnior Leung DO [address] [place] [address] PCP - General FAMILY PRACTICE 07/11/20 Eun Hu MD [address] [place] [address] INTERVENTIONAL CARDIOLOGY 07/11/20 documented as of this encounter
--- OUTSIDE RECORDS SUMMARY | 2024-11-21 11:48 | XMS_ITS | Encounter Summary ---
Author Organization [facility] Address [facility] [place] [address] Care Team Providers Care Electric Range Servicer Name Role Phone Júnior Leung Primary Care Provider [phone] Eun Hu MD Unavailable [phone] Encounter Details Date Type Department Care Team ([facility] st Contact Info) Description 01/08/2021 [facility] [address] [place] [phone] Eun Hu MD [address] [place] [address] Social History Tobacco Use Types Packs/Day Years Used Date Smoking Tobacco: Never Smokeless Tobacco: Never Alcohol Use Standard Drinks/Week Comments No 0 (1 standard drink = 0.6 oz pur e alcohol) Comments Unknown Sex and Gender Information Value Date Recorded Sex Assigned at Not on file Legal Sex Female 6:12 PM CDT Gender Identity Female 08/05/2021 11:22 AM DOCUMENT CONTROL MANAGER Sexual Orientation Straight 08/05/2021 11 :22 AM DOCUMENT CONTROL MANAGER Occupation Industry Job Start Date Job [...] Rule Out 08/06/2021 08/06/2021 08/06/2021 2:29 PM DOCUMENT CONTROL MANAGER documented as of this encounter Care Teams Electric Range Servicer Relationship Specialty Start Date End Date Júnior Leung DO [address] [place] [address] PCP - General FAMILY PRACTICE 07/11/20 Eun Hu MD [address] [place] [address] INTERVENTIONAL CARDIOLOGY 07/11/20 documented as of this encounter
--- OUTSIDE RECORDS SUMMARY | 2024-11-21 11:48 | XMS_ITS | Encounter Summary ---
Author Organization [facility] Address [facility] [place] [address] Care Team Providers Care Physician Obstetrician Name Role Phone Scottnick Júnior DURON Primary Care Provider [phone] Eun Hu MD Unavailable [phone] Encounter Details Date Type Department Care Team (Late st Contact Info) Description 08/07/2021 Hospital Orders Only [facility] Anesthesia [address] [place] [address] Gay Guevara Anesthesia Record Procedure Summary Procedure Name Responsible Anesthesiologist Anesthesia Start Time Anesthesia Stop Time XA A-FIB ABLATION Anival Ryenoso MD 08/08/21 09 27 08/08/21 1143 Events [...] 1840; Removal Reason: Leaking 08/08/21 0948 by Evetet Delgado CRNA 08/08/21 1840 by Mackenzie Mendez [...] CDT Gender Identity Female 08/05/2021 11:22 AM TURN MACHINE OPERATOR Sexual Orientation Straight 08/05/2021 11 :22 AM TURN MACHINE OPERATOR Occupation Industry Job Start Date Job End Date retired Not on file Not on file Not on file COVID-19 Exposure Response Date Recorded In the last month, have you been in contact with someone who was confirmed or suspected to have Coronavirus / COVID-19? No / Unsure 08/08/2021 7:06 AM TURN MACHINE OPERATOR documented as of this encounter Functional Status * Calculated C-SSRS Risk Score (Lifetime/Recent) Answer Date of Assessment Author Status No Risk Indicated 08/08/2021 7:22 AM TURN MACHINE OPERATOR Ching Taylor RN Active * Ruth Suicide Severity Rating Scale (Screener/Recent Self-Report) Question Answer Date of Assessment Author Status 1. Wish to be (Past 1 Month) No 08/08/2021 7:22 AM TURN MACHINE OPERATOR Jennyfer Taylor RN Act yenny 2. Non-Specific Active Suicidal Thoughts (Past 1 Month) No 08/08/2021 7:22 AM TURN MACHINE OPERATOR Jennyfer Taylor RN Act yenny 6. Suicidal Behavior (Lifetime) No 08/08/2021 7:22 AM TURN MACHINE OPERATOR Jennyfer Taylor RN Act yenny documented as of this encounter Mental Status * Question Answer Entry Date Author Status Because of a physical, mental, or emotional condition, do you have serious difficulty concentrating, remembering, or making decisions? No 08/08/2021 1:49 PM TURN MACHINE OPERATOR Mackenzie Mendez RN Active documented in this encounter Plan of Treatment Not on file documented as of this encounter Visit Diagnoses Not on filedocumented in this encounter Care Teams Physician Obstetrician Relationship Specialty Start Date End Date Júnior Leung DO [address] [place] [address] PCP - General FAMILY PRACTICE 07/11/20 Eun Hu MD [address] [place] [address] INTERVENTIONAL CARDIOLOGY 07/11/20 documented as of this encounter
--- OUTSIDE RECORDS SUMMARY | 2024-11-21 11:48 | XMS_ITS ---
Author Organization Unknown Address [address] [place] [phone] Phone Care Team Providers Care Voice Coach Name Role Phone JADEN CLYDE Attending Unavailable [facility] Primary Unavailable Immunization Immunization Date [...] Smoking History Unknown if ever smoked [id number] Sex Female Hospital Discharge Instructions Should you have any questions prior to discharge, please contact a member of your healthcare team. If you have left the hospital and have any questions, please contact your primary care physician. Reason For Referral No Data Found Plan of Treatment US Echo With Color (91386) 04/21/2024 NM Spect Perf Rest Stress Multi (94460) 06/02/2024 Stress Test Chemical 06/02/2024 NM Spect Perf Rest Stress Multi (24025) 06/02/2024 Stress Test Chemical 06/02/2024 Encounters Encounter Diagnosis Start Date Code Code Sys tem Heart failure, unspecified 03/15/2024 S NOMED-CT Personal Care Team Section Performer Name Performer Role Active Date Inactive EDDIE Harry PCP - Primary care physician 2024-04-20 2
[2024-11-21 12:29] LABS: Creatinine Urine 119.72 mg/dL (40-278); MALB Creatinine Ratio 10.8 mg/g (0-30); Microalbumin Urine Random < 13.0 mg/L
[2024-11-21 12:33] LABS: Hemoglobin A1C 9.3 % (<5.7)
== END 2024-11-21 10:51 | disposition home or self-care (01) ==
LOC: CHSLAB 10:51
PROVIDERS: Nurse Practitioner Family; PCP Family Medicine; Visit Provider Internal Medicine
DX: N18.30 Chronic kidney disease, stage 3 unspecified (principal); E11.9 Type 2 diabetes mellitus without complications; I82.402 Acute embolism and thrombosis of unspecified deep veins of left lower extremity
CPT/HCPCS: 36415; 80053; 82043; 83036; 85610

== ENCOUNTER 2024-11-23 08:37 | Outpatient (CLI) | payer OTHER, SELFPAY ==
--- OUTSIDE RECORDS SUMMARY | 2024-11-23 08:46 | XMS_ITS ---
Author Organization Unknown Address [address] [place] [phone] Phone Care Team Providers Care Chiseler Head Name Role Phone JADEN CLYDE Attending Unavailable [facility] Primary Unavailable Immunization Immunization Date Status Additional [...] Smoking History Unknown if ever smoked [id number] Sex Female Hospital Discharge Instructions Should you have any questions prior to discharge, please contact a member of your healthcare team. If you have left the hospital and have any questions, please contact your primary care physician. Reason For Referral No Data Found Plan of Treatment US Echo With Color (37116) 04/21/2024 NM Spect Perf Rest Stress Multi (72068) 06/02/2024 Stress Test Chemical 06/02/2024 NM Spect Perf Rest Stress Multi (17538) 06/02/2024 Stress Test Chemical 06/02/2024 Encounters Encounter Diagnosis Start Date Code Code Sys tem Unspecified systolic (congestive) heart failure 2023 SNOMED-CT Personal Care Team Section Performer Name Performer Role Active Date Inactive EDDIE Harry PCP - Primary care physician 2024-04-2 2
--- OUTSIDE RECORDS SUMMARY | 2024-11-23 08:46 | XMS_ITS ---
Author Organization Unknown Address [address] [place] [phone] Phone Care Team Providers Care Wind Site Manager Name Role Phone JADEN CLYDE Attending Unavailable [facility] Primary Unavailable Immunization Immunization Date [...] Smoking History Unknown if ever smoked [id number] Sex Female Hospital Discharge Instructions Should you have any questions prior to discharge, please contact a member of your healthcare team. If you have left the hospital and have any questions, please contact your primary care physician. Reason For Referral No Data Found Plan of Treatment US Echo With Color (00810) 04/21/2024 NM Spect Perf Rest Stress Multi (79076) 06/02/2024 Stress Test Chemical 06/02/2024 NM Spect Perf Rest Stress Multi (46796) 06/02/2024 Stress Test Chemical 06/02/2024 Encounters Encounter Diagnosis Start Date Code Code Sys tem Unspecified atrial fibrillation 11/08/2024 SNOMED-CT Personal Care Team Section Performer Name Performer Role Active Date Inactive EDDIE Harry PCP - Primary care physician 2023-10-2 2
--- OUTSIDE RECORDS SUMMARY | 2024-11-23 08:46 | XMS_ITS | Encounter Summary ---
Author Organization [facility] Address [address] [place] [address] Care Team Providers Care Child Care Associate Name Role Phone Ricci Marshall MD Unavailable Unavailab Júnior Huynh DO Primary Care Provider Eun Hu MD Unavailable [phone] Encounter Details Date Type Department Care Team (Late st Contact Info) Description 02/13/2016 [facility] [address] [place] [address] Ricci Marshall MD Social History Tobacco Use Types Packs/Day Years Used Date Smoking Tobacco: Never Alcohol Use Standard Drinks/Week Comments No 0 (1 standard drink = 0.6 oz pur e alcohol) Comments Unknown Sex and Gender Information Value Date Recorded Sex Assigned at Not on file Legal Sex Female 6:12 PM CDT Gender Identity Female 08/05/2021 11:22 AM REAL ESTATE BROKER ASSOCIATE Sexual Orientation Straight 08/05/2021 11 :22 AM REAL ESTATE BROKER ASSOCIATE Occupation Industry Job Start Date Job End Date retired Not on file Not on file Not on file documented as of this encounter Plan of Treatment Not on file documented as of this encounter Visit Diagnoses Not on filedocumented in this encounter Additional Health Concerns Infection Onset Date Last Indicated Resolved Time COVID-19 Rule Out 08/06/2021 08/06/2021 08/06/2021 2:29 PM REAL ESTATE BROKER ASSOCIATE documented as of this encounter Care Teams Child Care Associate Relationship Specialty Start Date End Date Júnior Leung DO [address] [place] [address] PCP - General FAMILY PRACTICE 07/11/20 Ricci Marshall MD CARDIOVASCULAR DISEASE 02/13/16 07/10/20 Eun Hu MD [address] [place], [place] [id number] INTERVENTIONAL CARDIOLOGY 07/11/20 documented as of this encounter
--- OUTSIDE RECORDS SUMMARY | 2024-11-23 08:46 | XMS_ITS ---
Author Organization Unknown Address [address] [place] [phone] Phone Care Team Providers Care Marble Cutter Name Role Phone JADNE CLYDE Attending Unavailable [facility] Primary Unavailable Immunization Immunization Date Status [...] Smoking History Unknown if ever smoked [id number] Sex Female Hospital Discharge Instructions Should you have any questions prior to discharge, please contact a member of your healthcare team. If you have left the hospital and have any questions, please contact your primary care physician. Reason For Referral No Data Found Plan of Treatment US Echo With Color (72526) 04/21/2024 NM Spect Perf Rest Stress Multi (57083) 06/02/2024 Stress Test Chemical 06/02/2024 NM Spect Perf Rest Stress Multi (20129) 06/02/2024 Stress Test Chemical 06/02/2024 Encounters Encounter Diagnosis Start Date Code Code Sys tem Heart failure, unspecified 06/02/2024 S NOMED-CT Personal Care Team Section Performer Name Performer Role Active Date Inactive EDDIE Harry PCP - Primary care physician 2024-04-20 2
--- OUTSIDE RECORDS SUMMARY | 2024-11-23 08:46 | XMS_ITS ---
Author Organization Unknown Address [address] [place] [phone] Phone Care Team Providers Care Bead Flipper Name Role Phone JADEN CLYDE Attending Unavailable [facility] Primary Unavailable Immunization Immunization Date Status [...] Smoking History Unknown if ever smoked [id number] Sex Female Hospital Discharge Instructions Should you have any questions prior to discharge, please contact a member of your healthcare team. If you have left the hospital and have any questions, please contact your primary care physician. Reason For Referral No Data Found Plan of Treatment US Echo With Color (79731) 04/21/2024 NM Spect Perf Rest Stress Multi (86867) 06/02/2024 Stress Test Chemical 06/02/2024 NM Spect Perf Rest Stress Multi (15351) 06/02/2024 Stress Test Chemical 06/02/2024 Encounters Encounter Diagnosis Start Date Code Code Sys tem Unspecified atrial fibrillation 04/21/2024 SNOMED-CT Personal Care Team Section Performer Name Performer Role Active Date Inactive EDDIE Harry PCP - Primary care physician 2023-10-2 2 Imaging Narrative Notes [facility] 04/26/2024 14:[address] [address] RADIOLOGY REPORT Patient Number: [id number] Patient Name: SAHA MARTINEZ Type: O/P MR Number: [id number] : 1955 Age: 68 Sex: F Room #: Admit Date: 04/21/24 Discharge Date 04/21/24 Ordering Physician: JADEN TANG Family Physician: NO PCP Second Physician: X-Ray Number : [id number] US ECHO W/ COLOR 60075 COMPLETE:04/21/24 13:28 [facility] [id number] (REASON-ECHO COMPLTE: ATRIAL FIBRILLATION See Scanned Image Attachment for Report Dictated By: Heraclio Initials: Trans Date: 04/26/24 14:43 <<REPDIST>>
--- OUTSIDE RECORDS SUMMARY | 2024-11-23 08:46 | XMS_ITS | Clinical Summary ---
Author Organization [facility] Address [address] [place] [address] Care Team Providers Care Rn Pediatric Name Role Phone CristinaRadha goinsteresa DURON Primary Care Provider [phone] Eun Hu MD Unavailable [phone] Allergies No known active allergies Medications [...] CDT Gender Identity Female 08/05/2021 11:22 AM WATER SANDER Sexual Orientation Straight 08/05/2021 11 :22 AM WATER SANDER Occupation Industry Job Start Date Job End Date retired Not on file Not on file Not on file Last Filed Vital Signs Vital Sign Reading Time Taken Comments Blood Pressure 141/88 10/02/2021 9:52 AM CDT Pulse 73 10/02/2021 9:51 AM CDT Temperature 36.5 C (97.7 F) 08/10/2021 7:52 AM WATER SANDER Respiratory Rate 20 10/02/2021 9:51 AM CDT [...] Billing Address Personal/Family Self 1955 [address] [place] [address] MEDICAID [employer] Advance Directives * Full Code (Latest Code Status on File) Date Activated Date Inactivated Comments 08/08/2021 12:28 PM 08/10/2021 1:35 PM Care Teams Rn Pediatric Relationship Specialty Start Date End Date Júnior Leung DO [address] [place] [address] PCP - General FAMILY PRACTICE 07/11/20 Eun Hu MD [address] [place] [address] INTERVENTIONAL CARDIOLOGY 07/11/20
--- OUTSIDE RECORDS SUMMARY | 2024-11-23 08:46 | XMS_ITS | Encounter Summary ---
Author Organization [facility] Address [address] [place] [address] Care Team Providers Care Team Leader/Research Psychologist Name Role Phone Júnior Leung DO Primary Care Provider [phone] Eun Hu MD Unavailable [phone] Encounter Details Date Type Department Care Team (Late st Contact Info) Description 10/29/2021 Abstract [facility] [address] Sara Stewart, [facility]- [address] [place] [address] Social History Tobacco Use Types Packs/Day Years Used Date Smoking Tobacco: Never Smokeless Tobacco: Never Alcohol Use Standard Drinks/Week Comments No 0 (1 standard drink = 0.6 oz pur e alcohol) Comments Unknown Sex and Gender Information Value Date Recorded Sex Assigned at Not on file Legal Sex Female 6:12 PM CDT Gender Identity Female 08/05/2021 11:22 AM TECHNICAL COMMUNICATOR Sexual Orientation Straight 08/05/2021 11 :22 AM TECHNICAL COMMUNICATOR Occupation Industry Job Start Date Job End [...] Assessment Author Status No 08/08/2021 1:49 PM TECHNICAL COMMUNICATOR Activ e * RETIRED Are you blind or do you have serious difficulty seeing, even when wearing glasses? Answer Date of Assessment Author Status No 08/08/2021 1:49 PM TECHNICAL COMMUNICATOR Activ e * Do you have serious difficulty walking or climbing stairs? Answer Date of Assessment Author Status No 08/08/2021 1:49 PM TECHNICAL COMMUNICATOR Mackenzie Mendez R N Active * Do you have difficulty dressing or bathing? Answer Date of Assessment Author Status No 08/08/2021 1:49 PM TECHNICAL COMMUNICATOR Mackenzie Mendez R N Active * Because of a physical, mental, or emotional condition, do you have difficulty doing errands alone such as visiting a doctor's office or shopping? Answer Date of Assessment Author Status No 08/08/2021 1:49 PM TECHNICAL COMMUNICATOR Mackenzie Mendez R N Active documented as of this encounter Mental Status * Because of a physical, mental, or emotional condition, do you have serious difficulty concentrating, remembering, or making decisions? Answer Entry Date Author Status No 08/08/2021 1:49 PM TECHNICAL COMMUNICATOR Mackenzie Mendez R N Active documented in this encounter Plan of Treatment Not on file documented as of this encounter Procedures Procedure Name Priority Date/Time Associated Diagnosis Comments PROTHROMBIN TIME, VENOUS Routine 10/25/2021 Paroxysmal atrial fibrillation documented in this encounter Results * PROTHROMBIN TIME, VENOUS (10/25/2021) PROTIME WHOLE BLOOD 31.9 INR WHOLE BLOOD 3.20 10/25/2021 Sara Stewart [facility] Final Res ult documented in this encounter Visit Diagnoses Diagnosis Paroxysmal atrial fibrillation ([facility]/HCC HHS/HCC) Atrial fibrillation documented in this encounter Care Teams Team Leader/Research Psychologist Relationship Specialty Start Date End Date Júnior Leung DO [address] [place] [address] PCP - General FAMILY PRACTICE 07/11/20 Eun Hu MD [address] [place] [address] INTERVENTIONAL CARDIOLOGY 07/11/20 documented as of this encounter
--- OUTSIDE RECORDS SUMMARY | 2024-11-23 08:47 | XMS_ITS | Encounter Summary ---
Author Organization [facility] Address [facility] [place] [address] Care Team Providers Care Roll Slicing Machine Tender Name Role Phone Scottnick Júnior DURON Primary Care Provider Eun Hu MD Unavailable Encounter Details Date Type Department Care Team (Late st Contact Info) Description 08/07/2021 Hospital Orders Only [facility] Anesthesia [address] [place] [address] Gay Guevara Anesthesia Record Procedure Summary Procedure [...] CDT Gender Identity Female 08/05/2021 11:22 AM SENIOR ANALYTIC CONSULTANT Sexual Orientation Straight 08/05/2021 11 :22 AM SENIOR ANALYTIC CONSULTANT Occupation Industry Job Start Date Job End Date retired Not on file Not on file Not on file COVID-19 Exposure Response Date Recorded In the last month, have you been in contact with someone who was confirmed or suspected to have Coronavirus / COVID-19? No / Unsure 08/08/2021 7:06 AM SENIOR ANALYTIC CONSULTANT documented as of this encounter Functional Status * Calculated C-SSRS Risk Score (Lifetime/Recent) Answer Date of Assessment Author Status No Risk Indicated 08/08/2021 7:22 AM SENIOR ANALYTIC CONSULTANT Ching Taylor RN Active * [place] Suicide Severity Rating Scale (Screener/Recent Self-Report) Question Answer Date of Assessment Author Status 1. Wish to be (Past 1 Month) No 08/08/2021 7:22 AM SENIOR ANALYTIC CONSULTANT Jennyfer Taylor RN Act yenny 2. Non-Specific Active Suicidal Thoughts (Past 1 Month) No 08/08/2021 7:22 AM SENIOR ANALYTIC CONSULTANT Jennyfer Taylor RN Act yenny 6. Suicidal Behavior (Lifetime) No 08/08/2021 7:22 AM SENIOR ANALYTIC CONSULTANT Jennyfer Taylor RN Act yenny documented as of this encounter Mental Status * Question Answer Entry Date Author Status Because of a physical, mental, or emotional condition, do you have serious difficulty concentrating, remembering, or making decisions? No 08/08/2021 1:49 PM SENIOR ANALYTIC CONSULTANT Mackenzie Mendez RN Active documented in this encounter Plan of Treatment Not on file documented as of this encounter Visit Diagnoses Not on filedocumented in this encounter Care Teams Roll Slicing Machine Tender Relationship Specialty Start Date End Date Júnior Lueng DO [address] [place] [address] PCP - General FAMILY PRACTICE 07/11/20 Eun Hu MD [address] [place] [address] INTERVENTIONAL CARDIOLOGY 07/11/20 documented as of this encounter
--- OUTSIDE RECORDS SUMMARY | 2024-11-23 08:47 | XMS_ITS | Encounter Summary ---
Author Organization [facility] Address [address] [place] [address] Care Team Providers Care Corporate Ethics Officer Name Role Phone Scottnick Júnior DURON Primary Care Provider [phone] Eun Hu MD Unavailable [phone] Encounter Details Date Type Department Care Team (Late st Contact Info) Description 01/10/2021 Hospital Orders Only [facility] Anesthesia [address] [place] [address] Gay Guevara Anesthesia Record Procedure Summary Procedure [...] Gender Identity Female 08/05/2021 11:22 AM MANAGER RESEARCH AND DEVELOPMENT Sexual Orientation Straight 08/05/2021 11 :22 AM MANAGER RESEARCH AND DEVELOPMENT Occupation Industry Job Start Date Job End [...] Rule Out 08/06/2021 08/06/2021 08/06/2021 2:29 PM MANAGER RESEARCH AND DEVELOPMENT documented as of this encounter Care Teams Corporate Ethics Officer Relationship Specialty Start Date End Date Júnior Leung DO [address] [place] [address] PCP - General FAMILY PRACTICE 07/11/20 Eun Hu MD [address] [place] [address] INTERVENTIONAL CARDIOLOGY 07/11/20 documented as of this encounter
--- OUTSIDE RECORDS SUMMARY | 2024-11-23 08:47 | XMS_ITS ---
Author Organization Unknown Address [address] [place] [phone] Phone Care Team Providers Care Physical Education Instructor Name Role Phone JADEN CLYDE [...] Smoking History Unknown if ever smoked [id number] Sex Female Hospital Discharge Instructions Should you have any questions prior to discharge, please contact a member of your healthcare team. If you have left the hospital and have any questions, please contact your primary care physician. Reason For Referral No Data Found Plan of Treatment US Echo With Color (65995) 04/21/2024 NM Spect Perf Rest Stress Multi (04568) 06/02/2024 Stress Test Chemical 06/02/2024 NM Spect Perf Rest Stress Multi (41248) 06/02/2024 Stress Test Chemical 06/02/2024 Encounters Encounter Diagnosis Start Date Code Code Sys tem Heart failure, unspecified 03/15/2024 S NOMED-CT Personal Care Team Section Performer Name Performer Role Active Date Inactive EDDIE Harry PCP - Primary care physician 2024-04-20 2
--- OUTSIDE RECORDS SUMMARY | 2024-11-23 08:47 | XMS_ITS | Encounter Summary ---
Author Organization [facility] Address On license of [facility] [place] [address] Care Team Providers Care Workforce Investment Act Career Manager Name Role Phone Júnior Leung Primary Care Provider [phone] Eun Hu MD Unavailable [phone] Encounter Details Date Type Department Care Team ([facility] st Contact Info) Description 01/08/2021 [facility] [address] [place] [id number] Eun Hu MD [address] [place] [address] Social History Tobacco Use Types Packs/Day Years Used Date Smoking Tobacco: Never Smokeless Tobacco: Never Alcohol Use Standard Drinks/Week Comments No 0 (1 standard drink = 0.6 oz pur e alcohol) Comments Unknown Sex and Gender Information Value Date Recorded Sex Assigned at Not on file Legal Sex Female 6:12 PM CDT Gender Identity Female 08/05/2021 11:22 AM DEVELOPMENT PLANNER Sexual Orientation Straight 08/05/2021 11 :22 AM DEVELOPMENT PLANNER Occupation Industry Job Start Date Job End [...] Rule Out 08/06/2021 08/06/2021 08/06/2021 2:29 PM DEVELOPMENT PLANNER documented as of this encounter Care Teams Workforce Investment Act Career Manager Relationship Specialty Start Date End Date Júnior Leung DO [address] [place] [address] PCP - General FAMILY PRACTICE 07/11/20 Eun Hu MD [address] [place] [address] INTERVENTIONAL CARDIOLOGY 07/11/20 documented as of this encounter
[2024-11-23 09:08] LABS: INR 1.6; Prothrombin Time 17.2 Seconds (9.50-12.1)
[2024-11-23 10:21] LABS: Uric Acid 8.9 mg/dL (2.6-6.0)
== END 2024-11-23 08:38 | disposition home or self-care (01) ==
PROVIDERS: PCP Family Medicine; Visit Provider Nurse Practitioner Family
DX: I82.402 Acute embolism and thrombosis of unspecified deep veins of left lower extremity (principal); M10.9 Gout, unspecified
CPT/HCPCS: 36415; 84550; 85610

== ENCOUNTER 2025-03-09 12:19 | Outpatient (CLI) | payer OTHER, SELFPAY ==
[2025-03-09 12:55] LABS: Hemoglobin A1C 7.6 % (<5.7)
[2025-03-09 13:20] LABS: Alanine Aminotransferase 22 U/L (6-35); Albumin Level 4.6 g/dL (3.5-5.1); Alkaline Phosphatase 77 U/L (38-126); Anion Gap 10 mmol/L (4-12); Aspartate Amino Transferase 26 U/L (14-36); Bilirubin,Total 1.2 mg/dL (0.2-1.3); Blood Urea Nitrogen 25 mg/dL (7-17); Calcium 10.1 mg/dL (8.4-10.2); Carbon Dioxide 29 mmol/L (22-30); Chloride 99 mmol/L (98-107); Estimated Glomerular Filt Rate 37; Glucose 192 mg/dL (65-110); Osmolality Calculated 295 mOsm/kg (285-295); Potassium 4.5 mmol/L (3.4-5.0); Sodium 138 mmol/L (137-145); Total Protein 7.4 g/dL (6.3-8.2); Uric Acid 4.0 mg/dL (2.5-7.5)
== END 2025-03-09 12:20 | disposition home or self-care (01) ==
LOC: CHSLAB 12:20
PROVIDERS: PCP Family Medicine; Visit Provider Nurse Practitioner Family
DX: E11.9 Type 2 diabetes mellitus without complications (principal); E87.6 Hypokalemia; M10.9 Gout, unspecified
CPT/HCPCS: 36415; 80053; 83036; 84550

== ENCOUNTER 2025-04-26 15:11 | Outpatient (NON) | payer OTHER, SELFPAY ==
[2025-04-26 15:32] LABS: Add Urine Microscopic? YES; Appearance Urine Sl Cloudy (Clear); Glucose Urine UA 3+ (Negative); Leukocyte Esterase Ur 1+ LEU/UL (Negative); Nitrate Urine Negative (Negative); Specific Grav Ur 1.010 (1.010-1.020)
== END 2025-04-26 15:12 | disposition home or self-care (01) ==
LOC: CHSLAB 15:13
PROVIDERS: PCP Nurse Practitioner Family; Visit Provider Nurse Practitioner Family
DX: N93.9 Abnormal uterine and vaginal bleeding, unspecified (principal); R82.90 Unspecified abnormal findings in urine
CPT/HCPCS: 81001; 87086

== ENCOUNTER 2025-05-23 10:04 | Outpatient (CLI) | payer OTHER, SELFPAY ==
[2025-05-23 11:02] LABS: Cholesterol 154 mg/dL (0-200); HDL Direct 44 mg/dL; Triglycerides 347 mg/dL (<150)
--- OUTSIDE RECORDS SUMMARY | 2025-05-23 11:27 | XMS_ITS | Encounter Summary ---
Author Organization [facility] Address [address] [place] [address] Care Team Providers Care Livestock Broker Name Role Phone Ricci Marshall MD Unavailable Unavailab Júnior Huynh DO Primary Care Provider Eun Hu MD Unavailable [phone] Encounter Details Date Type Department Care Team (Late st Contact Info) Description 02/13/2016 [facility] [address] [place] [address] Ricci Marshall MD Social History Tobacco Use Types Packs/Day Years Used Date Smoking Tobacco: Never Alcohol Use Standard Drinks/Week Comments No 0 (1 standard drink = 0.6 oz pur e alcohol) Comments Unknown Sex and Gender Information Value Date Recorded Sex Assigned at Not on file Legal Sex Female 6:12 PM CDT Gender Identity Female 08/05/2021 11:22 AM CHARGE GANG WEIGHER Sexual Orientation Straight 08/05/2021 11 :22 AM CHARGE GANG WEIGHER Occupation Industry Job Start Date Job End Date retired Not on file Not on file Not on file documented as of this encounter Plan of Treatment Not on file documented as of this encounter Visit Diagnoses Not on filedocumented in this encounter Additional Health Concerns Infection Onset Date Last Indicated Resolved Time COVID-19 Rule Out 08/06/2021 08/06/2021 08/06/2021 2:29 PM CHARGE GANG WEIGHER documented as of this encounter Care Teams Livestock Broker Relationship Specialty Start Date End Date Júnior Leung DO [address] [place] [address] PCP - General FAMILY PRACTICE 07/11/20 Ricci Marshall MD CARDIOVASCULAR DISEASE 02/13/16 07/10/20 Eun Hu MD [address] [place] [address] INTERVENTIONAL CARDIOLOGY 07/11/20 documented as of this encounter
--- OUTSIDE RECORDS SUMMARY | 2025-05-23 11:27 | XMS_ITS | Clinical Summary ---
Author Organization [facility] Address [address] [place] [address] Care Team Providers Care Dryland Farmer Name Role Phone CristinaRadha goinsteresa DURON Primary Care Provider [phone] Eun Hu MD Unavailable [phone] Allergies No known active allergies Medications [...] Problem Noted Date Diagnosed Date Atrial fibrillation 08/08/2020 Morbid obesity 08/08/2020 Hypertension Edema Shortness [...] Gender Identity Female 08/05/2021 11:22 AM SOCIAL ECONOMIST Sexual Orientation Straight 08/05/2021 11 :22 AM SOCIAL ECONOMIST Occupation Industry Job Start Date Job End Date retired Not on file Not on file Not on file Last Filed Vital Signs Vital Sign Reading Time Taken Comments Blood Pressure 141/88 10/02/2021 9:52 AM CDT Pulse 73 10/02/2021 9:51 AM CDT Temperature 36.5 C (97.7 F) 08/10/2021 7:52 AM SOCIAL ECONOMIST Respiratory Rate 20 10/02/2021 9:51 AM CDT Oxygen Saturation 99% 10/02/2021 9:51 AM CDT Inhaled Oxygen Concentration - - Weight 128.7 kg (283 lb 12.8 oz) 10/02/2021 9:51 AM CDT Height 160 cm (5' 3) 10/02/2021 9:51 AM CDT Body Mass Index [...] Vaccine: 50+ Years (2 of 2 - PCV20 or PCV21) 12/25/2020 12/26/2019, 07/05/2019 COVID-19 Vaccine (3 - 2024-2 6 season) 2025 12/15/2020, 11/17/2020 Influenza Adult (#1) 2025 RSV Immunization or 60+ Years (1 - 1-dose 75+ series) 2028 Hepatitis A Vaccines Aged Out No long er eligible based on patient's age to complete this topic Meningococcal B Vaccine Aged Out No l onger eligible based on patient's age to complete this topic Meningococcal Vaccine Aged Out No rajiv leo eligible based on patient's age to complete this topic RSV Immunizations Under 20 Months Aged Out No longer eligible b ased on patient's age to complete this topic Insurance [place] [address] [place] [address] MEDICARE Advance Directives * Full Code (Latest Code Status on File) Date Activated Date Inactivated Comments 08/08/2021 12:28 PM 08/10/2021 1:35 PM Care Teams Dryland Farmer Relationship Specialty Start Date End Date Júnior Leung DO [address] [place] [address] PCP - General FAMILY PRACTICE 07/11/20 Eun Hu MD [address] [place] [address] INTERVENTIONAL CARDIOLOGY 07/11/20
--- OUTSIDE RECORDS SUMMARY | 2025-05-23 11:27 | XMS_ITS | Encounter Summary ---
Author Organization [facility] Address [address] [place] [address] Care Team Providers Care Carpenter Apprentice Name Role Phone Scottnick Júnior DURON Primary Care Provider [phone] Eun Hu MD Unavailable Encounter Details Date Type Department Care Team (Late st Contact Info) Description 08/07/2021 Hospital Orders Only [facility] Anesthesia [address] [place] [address] Gay Guevara Anesthesia Record Procedure Summary Procedure [...] CDT Gender Identity Female 08/05/2021 11:22 AM GAS DISTRIBUTION AND EMERGENCY CLERK Sexual Orientation Straight 08/05/2021 11 :22 AM GAS DISTRIBUTION AND EMERGENCY CLERK Occupation Industry Job Start Date Job End Date retired Not on file Not on file Not on file COVID-19 Exposure Response Date Recorded In the last month, have you been in contact with someone who was confirmed or suspected to have Coronavirus / COVID-19? No / Unsure 08/08/2021 7:06 AM GAS DISTRIBUTION AND EMERGENCY CLERK documented as of this encounter Functional Status * Calculated C-SSRS Risk Score (Lifetime/Recent) Answer Date of Assessment Author Status No Risk Indicated 08/08/2021 7:22 AM GAS DISTRIBUTION AND EMERGENCY CLERK Ching Taylor RN Active * Stanley Suicide Severity Rating Scale (Screener/Recent Self-Report) Question Answer Date of Assessment Author Status 1. Wish to be (Past 1 Month) No 08/08/2021 7:22 AM GAS DISTRIBUTION AND EMERGENCY CLERK Jennyfer Taylor RN Act yenny 2. Non-Specific Active Suicidal Thoughts (Past 1 Month) No 08/08/2021 7:22 AM GAS DISTRIBUTION AND EMERGENCY CLERK Jennyfer Taylor RN Act yenny 6. Suicidal Behavior (Lifetime) No 08/08/2021 7:22 AM GAS DISTRIBUTION AND EMERGENCY CLERK Jennyfer Taylor RN Act yenny documented as of this encounter Mental Status * Question Answer Entry Date Author Status Because of a physical, mental, or emotional condition, do you have serious difficulty concentrating, remembering, or making decisions? No 08/08/2021 1:49 PM GAS DISTRIBUTION AND EMERGENCY CLERK Mackenzie Mendez RN Active documented in this encounter Plan of Treatment Not on file documented as of this encounter Visit Diagnoses Not on filedocumented in this encounter Care Teams Carpenter Apprentice Relationship Specialty Start Date End Date Júnior Leung DO [address] [place] [address] PCP - General FAMILY PRACTICE 07/11/20 Eun Hu MD [address] [place] [address] INTERVENTIONAL CARDIOLOGY 07/11/20 documented as of this encounter
--- OUTSIDE RECORDS SUMMARY | 2025-05-23 11:27 | XMS_ITS | Encounter Summary ---
Author Organization [facility] Address [facility] [place] [address] Care Team Providers Care Press And Blow Machine Tender Name Role Phone Júnior Leung Primary Care Provider [phone] Eun Hu MD Unavailable [phone] Encounter Details Date Type Department Care Team ([facility] st Contact Info) Description 01/08/2021 [facility] [address] [place] [id number] Eun uH MD [address] [place] [address] Social History Tobacco Use Types Packs/Day Years Used Date Smoking Tobacco: Never Smokeless Tobacco: Never Alcohol Use Standard Drinks/Week Comments No 0 (1 standard drink = 0.6 oz pur e alcohol) Comments Unknown Sex and Gender Information Value Date Recorded Sex Assigned at Not on file Legal Sex Female 6:12 PM CDT Gender Identity Female 08/05/2021 11:22 AM FIELD TECHNICAL SPECIALIST Sexual Orientation Straight 08/05/2021 11 :22 AM FIELD TECHNICAL SPECIALIST Occupation Industry Job Start Date Job [...] Rule Out 08/06/2021 08/06/2021 08/06/2021 2:29 PM FIELD TECHNICAL SPECIALIST documented as of this encounter Care Teams Press And Blow Machine Tender Relationship Specialty Start Date End Date Júnior Leung DO [address] [place] [address] PCP - General FAMILY PRACTICE 07/11/20 Eun Hu MD [address] [place] [address] INTERVENTIONAL CARDIOLOGY 07/11/20 documented as of this encounter
--- OUTSIDE RECORDS SUMMARY | 2025-05-23 11:27 | XMS_ITS | Encounter Summary ---
Author Organization [facility] Address [address] [place] [address] Care Team Providers Care Ocean Transportation Intermediary Name Role Phone Scottnick Júnior DURON Primary Care Provider [phone] Eun Hu MD Unavailable [phone] Encounter Details Date Type Department Care Team (Late st Contact Info) Description 01/10/2021 Hospital Orders Only [facility] Anesthesia [address] [place] [address] Gay Guevara Anesthesia Record Procedure Summary Procedure [...] CDT Gender Identity Female 08/05/2021 11:[address] WORK[address] Sexual Orientation Straight 08/05/2021 11 :[address] WORKER Occupation Industry Job Start Date Job End [...] Rule Out 08/06/2021 08/06/2021 08/06/2021 2:[address] WORKER documented as of this encounter Care Teams Ocean Transportation Intermediary Relationship Specialty Start Date End Date Júnior Leung DO [address] [place] [address] PCP - General FAMILY PRACTICE 07/11/20 Eun Hu MD [address] [place] [address] INTERVENTIONAL CARDIOLOGY 07/11/20 documented as of this encounter
--- OUTSIDE RECORDS SUMMARY | 2025-05-23 11:27 | XMS_ITS | Encounter Summary ---
Author Organization [facility] Address [address] [place] [address] Care Team Providers Care Glass Block Bender Name Role Phone Júnior Leung DO Primary Care Provider [phone] Eun Hu MD Unavailable [phone] Encounter Details Date Type Department Care Team (Late st Contact Info) Description 10/29/2021 Abstract [facility] [place] [id number] Sara Stewart, [facility]- [address] [place], [place] [address] Social History Tobacco Use Types Packs/Day Years Used Date Smoking Tobacco: Never Smokeless Tobacco: Never Alcohol Use Standard Drinks/Week Comments No 0 (1 standard drink = 0.6 oz pur e alcohol) Comments Unknown Sex and Gender Information Value Date Recorded Sex Assigned at Not on file Legal Sex Female 6:12 PM CDT Gender Identity Female 08/05/2021 11:22 AM OPERATIONS CHIEF Sexual Orientation Straight 08/05/2021 11 :22 AM OPERATIONS CHIEF Occupation Industry Job Start Date Job End [...] Assessment Author Status No 08/08/2021 1:49 PM OPERATIONS CHIEF Activ e * RETIRED Are you blind or do you have serious difficulty seeing, even when wearing glasses? Answer Date of Assessment Author Status No 08/08/2021 1:49 PM OPERATIONS CHIEF Activ e * Do you have serious difficulty walking or climbing stairs? Answer Date of Assessment Author Status No 08/08/2021 1:49 PM OPERATIONS CHIEF Mackenzie Mendez R N Active * Do you have difficulty dressing or bathing? Answer Date of Assessment Author Status No 08/08/2021 1:49 PM OPERATIONS CHIEF Mackenzie Mendez R N Active * Because of a physical, mental, or emotional condition, do you have difficulty doing errands alone such as visiting a doctor's office or shopping? Answer Date of Assessment Author Status No 08/08/2021 1:49 PM OPERATIONS CHIEF Mackenzie Mendez R N Active documented as of this encounter Mental Status * Because of a physical, mental, or emotional condition, do you have serious difficulty concentrating, remembering, or making decisions? Answer Entry Date Author Status No 08/08/2021 1:49 PM OPERATIONS CHIEF Mackenzie Mendez R N Active documented in this encounter Plan of Treatment Not on file documented as of this encounter Procedures Procedure Name Priority Date/Time Associated Diagnosis Comments PROTHROMBIN TIME, VENOUS Routine 10/25/2021 Paroxysmal atrial fibrillation documented in this encounter Results * PROTHROMBIN TIME, VENOUS (10/25/2021) PROTIME WHOLE BLOOD 31.9 INR WHOLE BLOOD 3.20 10/25/2021 Sara Stewart [facility] Final Res ult documented in this encounter Visit Diagnoses Diagnosis Paroxysmal atrial fibrillation ([facility]/HCC HHS/HCC) Atrial fibrillation documented in this encounter Care Teams Glass Block Bender Relationship Specialty Start Date End Date Júnior Leung DO [address] [place] [address] PCP - General FAMILY PRACTICE 07/11/20 Eun Hu MD [address] [place] [address] INTERVENTIONAL CARDIOLOGY 07/11/20 documented as of this encounter
[2025-05-26 22:32] LABS: Hemoglobin A1C 6.9 % (<5.7)
== END 2025-05-23 10:05 | disposition home or self-care (01) ==
PROVIDERS: PCP Nurse Practitioner Family; Visit Provider Nurse Practitioner Family
DX: E78.5 Hyperlipidemia, unspecified (principal); E11.69 Type 2 diabetes mellitus with other specified complication
CPT/HCPCS: 36415; 80061; 83036

== ENCOUNTER 2025-07-06 09:59 | Outpatient (CLI) | payer OTHER, SELFPAY ==
[2025-07-06 12:22] LABS: Hematocrit 41.4 % (35.0-42.0); Hemoglobin 13.5 g/dL (11.7-13.8); Mean Corpuscular HGB Conc 32.6 g/dL (32-36); Mean Corpuscular Hemoglobin 30.5 pg (27.0-31.0); Mean Corpuscular Volume 93.5 fL (78.0-102.0); Platelet Count Result 286 K/mm3 (150-420); Red Blood Count 4.43 M/mm3 (4.20-5.40); White Blood Count 8.1 K/mm3 (4.8-10.8)
[2025-07-06 12:39] LABS: Alanine Aminotransferase 32 U/L (6-35); Albumin Level 4.7 g/dL (3.5-5.1); Alkaline Phosphatase 74 U/L (38-126); Anion Gap 16 mmol/L (4-12); Aspartate Amino Transferase 35 U/L (14-36); Bilirubin,Total 0.7 mg/dL (0.2-1.3); Blood Urea Nitrogen 54 mg/dL (7-17); Calcium 10.1 mg/dL (8.4-10.2); Carbon Dioxide 23 mmol/L (22-30); Chloride 103 mmol/L (98-107); Digoxin 1.4 ng/mL (0.8-2.0); Estimated Glomerular Filt Rate 28; Glucose 195 mg/dL (65-110); Osmolality Calculated 313 mOsm/kg (285-295); Potassium 4.6 mmol/L (3.4-5.0); Sodium 142 mmol/L (137-145); Total Protein 7.5 g/dL (6.3-8.2)
[2025-07-06 12:47] LABS: Add Urine Microscopic? YES; Appearance Urine Clear (Clear); Glucose Urine UA 1+ (Negative); Leukocyte Esterase Ur 2+ LEU/UL (Negative); Nitrate Urine Negative (Negative); Specific Grav Ur 1.015 (1.010-1.020)
== END 2025-07-06 10:00 | disposition home or self-care (01) ==
PROVIDERS: PCP Family Medicine; Visit Provider Family Medicine
DX: I48.91 Unspecified atrial fibrillation (principal); N93.9 Abnormal uterine and vaginal bleeding, unspecified; R82.90 Unspecified abnormal findings in urine
CPT/HCPCS: 36415; 80053; 80162; 81001; 85027; 87086